=== PATIENT | male | born 1955 | race Two or more races ===

== ENCOUNTER 2022-11-02 09:38 | Outpatient (OUT) | payer MEDICARE, OTHER, SELFPAY ==
--- NOTE | 2022-11-02 10:01 | P.CN_ITS ---
Consult Note: HPI Data of Consult Patient: known to practice within the last 3 years Consult date: 11/02/22 Requesting Physician: LIZZIE KU NP Primary Care Provider: MIKE YUAN Consult Narrative Narrative: He is here for upper back and lower back pain . He had lumbar RFA 06/18 with around 50% relief of pain only lasting a day. SCOTT in the past without relief. Currently in PT for shoulder post-op with sling on. No new sensorimotor or bowel or bladder issues. He feels the norco is wearing off to soon. We can change his dose to TID. Narcan rx given. cc:: CC: LIZZIE KU NP Review of Systems ROS0 Status of ROS 10 or more systems reviewed and unremarkable except as noted in history and below Musculoskeletal Reports: back pain Meds Home Medications and Allergies Allergies Allergy/AdvReac Type Severity Reaction Status Date / Time No Known Drug Allergies Allergy Verified 11/02/22 10:03 Exam Constitutional Documenting provider has reviewed patient's vital signs: yes Common normals: no apparent distress, average body habitus, oriented x3, healthy appearing, alert and well nourished Orientation/consciousness: Yes awake, Yes oriented to person, Yes oriented to place and Yes oriented to time HENMT Common normals: normocephalic, nasal mucous membranes and turbinates normal and moist oral mucous membranes Respiratory Common normals: normal respiratory effort, no retractions and no use of accessory muscles Effort & inspection: able to speak in complete sentences and symmetric chest movement Back & Pelvis Lumbar spine/lower back: normal to inspection, ROM limited, pain with ROM, paraspinal muscle tenderness, straight leg raise positive right and other soft tissue findings (positive facet load bilat) Extremity Common normals: normal to inspection, full ROM, normal capillary refill and no pedal edema Other: muscle strength bilat LE 4/5 with intact sensation Assessment and Plan Assessment and Plan (1) Lumbar radiculopathy: (2) Lumbar spondylosis:
== END 2022-11-02 09:39 ==
PROVIDERS: PCP Family Medicine; Visit Provider Nurse Practitioner
DX: M47.26 Other spondylosis with radiculopathy, lumbar region (principal)
CPT/HCPCS: G0463

== ENCOUNTER 2022-11-28 12:30 | Outpatient (OUT) | payer MEDICARE, OTHER, SELFPAY ==
[2022-11-28 13:34] LABS: Estimated Average Glucose 123 mg/dL; Glycohemoglobin A1C 5.9 % (4.5-6.2)
[2022-11-28 13:41] LABS: Alanine Aminotransferase 25 U/L (16-63); Albumin Globulin Ratio 0.9; Albumin Level 3.9 g/dL (3.4-5.0); Alkaline Phosphatase 154 U/L (46-116); Anion Gap 11.6; Aspartate Amino Transferase 22 U/L (15-37); BUN Creatinine Ratio 17.8; Bilirubin Total 0.3 mg/dL (0.2-1.0); Calcium 8.6 mg/dL (8.5-10.1); Carbon Dioxide 26.2 mmol/L (21.0-32.0); Chloride 104 mmol/L (98-107); Chol HDL Ratio 3.8; Cholesterol 146 mg/dL (<=200); Estimated GFR (African America 58 (>=60); Estimated GFR (Non-African Ame 48 (>=60); Globulin 4.4 g/dL; Glucose 154 mg/dL (74-106); HDL Cholesterol 38 mg/dL (40-60); Potassium 4.8 mmol/L (3.5-5.1); Sodium 137 mmol/L (136-145); Total Protein 8.3 g/dL (6.4-8.2); Triglycerides 294 mg/dL (<=150); VLDL CHOLESTEROL 58.8 mg/dL
== END 2022-11-28 12:31 | disposition home or self-care (01) ==
PROVIDERS: PCP Family Medicine; Visit Provider Family Medicine
DX: E11.65 Type 2 diabetes mellitus with hyperglycemia (principal)
CPT/HCPCS: 36415; 80053; 80061; 83036

== ENCOUNTER 2023-01-31 10:37 | Outpatient (OUT) | payer MEDICARE, OTHER, SELFPAY ==
--- NOTE | 2023-01-31 10:47 | P.CN_ITS ---
Consult Note: HPI Data of Consult Patient: known to practice within the last 3 years Requesting Physician: Luz Marina Viera NP Primary Care Provider: Niru Flynn MD Consult Narrative Reason for consult: f/u Narrative: Billy landers pleasant 67 year old male presents to office for evaluation of chronic low back, bilateral legs, bilateral shoulders. Currently on amitriptyline 25mg qd and [facility]. We prescribe norco 5- 325mg BID with mild relief. Patient interested in discussing additional injection therapy, previously failed MBBs and did not pursue an RFA. Today rating pain 7-8/. cc:: CC: Luz Marina Viera NP Review of Systems ROS Status of ROS 10 or more systems reviewed and unremarkable except as noted in history and below Musculoskeletal Reports: back pain, extremity pain and joint pain Meds Home Medications and Allergies Home Medications Medication Instructions Recorded Confirmed Type adalimumab 40 mg/0.4 mL 40 mg subcut QWEEK 11/02/22 11/02/22 History subcutaneous syringe kit ([place](CF)) amitriptyline 25 mg tablet 25 mg PO DAILY 11/02/22 11/02/22 History ascorbic acid (vitamin C) 500 mg 500 mg PO DAILY 11/02/22 11/02/22 History tablet baclofen 10 mg tablet 10 mg PO DAILY 11/02/22 11/02/22 History diclofenac sodium 75 mg 75 mg PO BID 11/02/22 11/02/22 History tablet,delayed release duloxetine 60 mg capsule,delayed 60 mg PO DAILY 11/02/22 11/02/22 History release ferrous sulfate 325 mg (65 mg 325 mg PO BID 11/02/22 11/02/22 History iron) tablet,delayed release flecainide 100 mg tablet 100 mg PO Q12H 11/02/22 11/02/22 History furosemide 40 mg tablet 40 mg PO DAILY 11/02/22 11/02/22 History hydrocodone 5 mg-acetaminophen 325 1 tab PO BID 11/02/22 11/02/22 History mg tablet lidocaine 5 % topical patch 1 patch topical DAILY 11/02/22 11/02/22 History lisinopril 10 mg tablet 10 mg PO DAILY 11/02/22 11/02/22 History melatonin 5 mg capsule mg 11/02/22 History metoprolol tartrate 50 mg tablet 50 mg PO DAILY 11/02/22 11/02/22 History multivitamin (Multiple Vitamins 1 tab PO DAILY 11/02/22 11/02/22 History tablet) omeprazole 40 mg capsule,delayed 40 mg PO DAILY 11/02/22 11/02/22 History release pregabalin 100 mg capsule (Lyrica) 100 mg PO BID 11/02/22 11/02/22 History simvastatin 40 mg tablet 40 mg PO DAILY 11/02/22 11/02/22 History sulfasalazine 500 mg tablet 1 g PO DAILY 11/02/22 11/02/22 History thiamine HCl (vitamin B1) 100 mg 100 mg PO DAILY 11/02/22 11/02/22 History tablet Allergies Allergy/AdvReac Type Severity Reaction Status Date / Time No Known Drug Allergies Allergy Verified 11/02/22 10:03 Exam Narrative Exam Narrative: chronic whole body OA pain Constitutional Documenting provider has reviewed patient's vital signs: yes Common normals: no apparent distress, oriented x3, healthy appearing, alert and well nourished General appearance: cooperative HENMT Common normals: normocephalic, hearing grossly normal bilaterally and moist oral mucous membranes Head and scalp: normocephalic Eye Common normals: PERRL Pupil: PERRL Neck & C-Spine Common normals: full ROM General: normal visual inspection Chest Common normals: inspection of chest normal Respiratory Common normals: normal respiratory effort, no retractions and no use of accessory muscles Back & Pelvis Lumbar spine/lower back: ROM limited, pain with ROM, straight leg raise positive right and straight leg raise positive left Sacroiliac joints: SI joint(s) abnormal SI joint details: tender to palpation and pain elicited by compression of iliac crest maneuver Other: pain with flexion, extension, rotation. Worsened with standing. Radiculopathy and altered sensation to BLE. Extremity Common normals: normal to inspection Neuro Common normals: oriented x3, CN's II-XII intact bilaterally, moves all extremities, no focal motor deficits, no sensory deficits noted and deep tendon reflexes 2+ bilaterally Sensorium/orientation: alert Gait (neuro): antalgic and assistive device used cane Motor exam: no movement abnormalities noted and strength abnormal (4/ BUE BLE) Psych Common normals: mental status grossly normal, thought process normal, cooperativ e, affect normal, speech normal and activity/motor behavior normal Speech: normal speech Thought process: normal thought process Results Additional Findings Additional findings: I have checked an [place] report on this patient today and there are no aberrancies noted in the prescribing history.?? A drug screen was completed and reviewed within the last year, and if there has not been a drug screen completed we ordered one today to monitor higher risk, state monitored pain medication use. As part of providing excellent, safe, comprehensive care, the following was completed at our patient's visit: 1. A medication reconciliation and review to ensure accurate knowledge of current/active medications, including asking our patients to inform us about any [id number] medications or herbal remedies/nutritional supplements/alternative remedies. 2. A review to specifically ensure our patients have had annual screening for: elevated body mass index (BMI), tobacco use, screening for depression, and screening for unhealthy alcohol use. When screening is concerning, patients are provided with education and the specific recommendation to discuss the concerning health issue and treatment options with their primary care provider. Assessment and Plan Assessment and Plan (1) Lumbar spondylosis: (2) Lumbar radiculopathy: (3) Osteoarthritis: (4) Chronic, continuous use of opioids: (5) Encounter for monitoring opioid maintenance therapy: Assessment and Plan: I have refilled the patient's opioid prescriptions at the above noted dose and schedule.? I feel these medications are improving the patient's quality of life and allow them to tolerate activities of daily living as well as participate in recreational activity.? The patient does not report intolerable side effects. The patient is NOT opioid naive and non-pharmacologic and non-opioid treatment has failed to significantly relieve the patient's pain and improve functionality. The patient has a diagnosis that is related to a somatic or visceral pain etiology. ? ?? I reviewed with the patient the potential risks and side effects with the use of? opioid medications including but not limited to respiratory depression,? sedation, and even . I verified the patient has access to naloxone should? these effects occur. I advised the patient to avoid the use of any other? sedation substances including alcohol, THC, and benzodiazepines while? taking opioid medications due to the risk of compounding side effects and? detrimental outcomes. 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 drug screen, and opioid start talking forms. The patient was advised to let? their family know they had Naloxone in case they would need to administer? the medication.? ?? A drug screen was completed within the last year, and no aberrancies were noted regarding their use of controlled substances. The patient understands they are subject to the terms and conditions of the pain contract that they have signed. ? ?? I have checked an OAR[place] report on this patient today and there are no aberrancies noted in the prescribing history.? Plan bilateral L4-5 TFESI followed by bilateral L5-S1 TFESI 2 weeks later for radicular symptoms and low back pain as supported by imaging and assessment previously mild to no benefit from lumbar MBBs did not pursue RFA [facility] currently for shoulder pain not interested in additional PT interested in lumbar SCOTT for symptom and pain management f/u after injections
== END 2023-01-31 10:38 | disposition home or self-care (01) ==
LOC: PM 10:37
PROVIDERS: PCP Family Medicine; Visit Provider Nurse Practitioner
DX: M47.26 Other spondylosis with radiculopathy, lumbar region (principal); M19.90 Unspecified osteoarthritis, unspecified site; Z79.891 Long term (current) use of opiate analgesic
CPT/HCPCS: G0463

== ENCOUNTER 2023-03-25 07:37 | Day surgery (SDC) | payer MEDICARE, OTHER, SELFPAY ==
[2023-03-25 07:56] VITALS: BP 99/67; PULSE 70; RESP 16; TEMP 36.5; O2SAT 98
[2023-03-25 08:34] VITALS: BP 110/55; PULSE 68; RESP 18; O2SAT 95
[2023-03-25] MEDS: TRIAMCINOLONE ACETONIDE 40 MG/ML VIAL 80 MG INJ (08:37)
[2023-03-25] MEDS: IOHEXOL 240 MG/ML - 10 ML VIAL INJ (08:37)
[2023-03-25] MEDS: BUPIVACAINE HCL 0.25% PF 25 MG/10 ML VIAL 2 ML INJ (08:37)
[2023-03-25] MEDS: LIDOCAINE HCL 2% PF 100 MG/5 ML VIAL 3 ML INJ (08:37)
[2023-03-25 08:40] VITALS: BP 112/65; PULSE 66; RESP 18; O2SAT 97
--- NOTE | 2023-03-25 08:41 | W.PM.PROCNOT ---
Date of procedure: 03/25/23 Pre-op diagnosis: Lumbar stenosis w/ neurogenic claudication, lumbar postlaminectomy syndrome Post-op diagnosis: same as pre-op Procedure: Procedure: Bilateral L4-5 transforaminal epidural steroid injection Medications: Bupivacaine 0.25% 2cc, kenalog 80mg The patient was seen and examined in the preoperative holding area.? Informed consent was obtained and placed on the chart.? Patient was brought to the medical procedure unit and placed in the prone position where a timeout was completed verifying the correct patient, procedure site, position, and planned special equipment using sterile aseptic technique.? Under direct fluoroscopic visualization a 25-gauge Quincke tipped spinal needle was advanced at level left L4-5 to the designated neural foramen where contrast dye was injected to show adequate spread.? There was no evidence of vascular or adverse uptake.? Epidural spread was appreciated.? The above-mentioned injectate was then placed in a 1.5 mL aliquot preceded by negative aspiration.? The needle was removed. The same procedure, at the same level, was completed on the opposite side. ? Patient was taken to the postprocedural recovery area and monitored for an appropriate length of time before found suitable for discharge in the accompaniment of a responsible adult. Anesthesia: Local Surgeon: Lesley Greene Pathology: none sent Condition: stable Disposition: no change
== END 2023-03-25 08:44 | disposition home or self-care (01) ==
PROVIDERS: PCP Family Medicine; Visit Provider Anesthesiology
DX: M48.062 Spinal stenosis, lumbar region with neurogenic claudication (principal); M96.1 Postlaminectomy syndrome, not elsewhere classified
CPT/HCPCS: 64483; Q9966

== ENCOUNTER 2023-06-03 10:04 | Day surgery (SDC) | payer MEDICARE, OTHER, SELFPAY ==
[2023-06-03 10:27] VITALS: BP 105/71; PULSE 76; RESP 16; TEMP 36.9; O2SAT 98
[2023-06-03 10:28] LABS: Glucometer 128 mg/dL (74-106)
[2023-06-03 10:38] VITALS: BP 103/54; PULSE 73; RESP 18; O2SAT 97
[2023-06-03] MEDS: 0.9 % SODIUM CHLORIDE 10 ML INJ (10:39)
[2023-06-03] MEDS: IOHEXOL 240 MG/ML - 10 ML VIAL INJ (10:39)
[2023-06-03] MEDS: LIDOCAINE HCL 2% PF 100 MG/5 ML VIAL INJ (10:39)
[2023-06-03] MEDS: BUPIVACAINE HCL 0.25% PF 25 MG/10 ML VIAL INJ (10:39)
[2023-06-03] MEDS: TRIAMCINOLONE ACETONIDE 40 MG/ML VIAL INJ (10:39)
[2023-06-03 10:40] VITALS: BP 104/57; PULSE 77; RESP 18; O2SAT 96
--- NOTE | 2023-06-03 10:44 | W.PM.PROCNOT ---
Date of procedure: 06/03/23 Pre-op diagnosis: Lumbar stenosis with neurogenic claudication Post-op diagnosis: same as pre-op Procedure: Procedure: Bilateral L5-S1 transforaminal epidural steroid injection Medications: Bupivacaine 0.25% 3cc, kenalog 80mg The patient was seen and examined in the preoperative holding area.? Informed consent was obtained and placed on the chart.? Patient was brought to the medical procedure unit and placed in the prone position where a timeout was completed verifying the correct patient, procedure site, position, and planned special equipment using sterile aseptic technique.? Under direct fluoroscopic visualization a 25-gauge Quincke tipped spinal needle was advanced at level left L5-S1 to the designated neural foramen where contrast dye was injected to show adequate spread.? There was no evidence of vascular or adverse uptake.? Epidural spread was appreciated.? The above-mentioned injectate was then placed in a 1.5 mL aliquot preceded by negative aspiration.? The needle was removed. The same procedure, at the same level, was completed on the opposite side. ? Patient was taken to the postprocedural recovery area and monitored for an appropriate length of time before found suitable for discharge in the accompaniment of a responsible adult. Anesthesia: Local Surgeon: Lesley Greene Pathology: none sent Condition: stable Disposition: no change
== END 2023-06-03 10:50 | disposition home or self-care (01) ==
PROVIDERS: PCP Family Medicine; Visit Provider Anesthesiology
DX: M48.062 Spinal stenosis, lumbar region with neurogenic claudication (principal)
CPT/HCPCS: 36415; 64483; J0665; J3301; Q9966

== ENCOUNTER 2023-06-13 10:17 | Outpatient (OUT) | payer MEDICARE, OTHER, SELFPAY ==
--- OUTSIDE RECORDS SUMMARY | 2023-06-13 10:21 | XMS_ITS | CCD ---
Author Name Unknown Address [address] [place] [address] Organization [facility] Care Team Providers Care Voltage Inspector Name Role Phone Mike Yuan MD Primary Care Provider MIKE YUAN Primary Care Unavailable GUY, HERNANDEZ H. Admitting Unavailable GUY, HERNANDEZ H. Attending Unavailable BELINDA MONROE Referring Unavailable MIKE YUAN Primary Care Unavailable MIKE YUAN Primary Care Unavailable GUY, HERNANDEZ H. Attending Unavailable GUY, HERNANDEZ H. Referring Unavailable Mike Yuan MD Primary Care Provider Mike Yuan MD Primary Care Provider [phone] GABRIELLA, ZENIA Referring Unavailable MIKE YUAN Primary Care Unavailable MIKE YUAN Primary Care Unavailable SKYE GARCIA Attending Unavailable GABRIELLA, ZENIA Admitting Unavailable GABRIELLA, ZENIA Attending Unavailable MIKE YUAN Primary Care Unavailable GABRIELLA, ZENIA Admitting Unavailable GABRIELLA, ZENIA Attending Unavailable MIKE YUAN Primary Care Unavailable DEBBY JENKINS Consulting Unavailable GABRIELLA, ZENIA Referring Unavailable MIKE YUAN Primary Care Unavailable CYDNEY REDMOND Attending Unavailable LAKSHMIPATHY ., NARENDRANATH Attending Pia vailable LAKSHMIPATHY ., NARENDRANATH Admitting Pia vailable DR JENNIFER RAGSDALE Primary Care Unavailable DR MIKE YUAN Primary Care Unavailable FLORES ., DR LOUISE Ewing Attending Unavailable FLORES ., DR LOUISE Ewing Admitting Unavailable FLORES ., DR LOUISE Ewing Consulting Unavailable AUTUMN RIOS Consulting Unavailable MAGALLANES . DEVAN Consulting Unavailable DR MIKE YUAN Primary Care Unavailable FLORES ., DR LOUISE Ewing Attending Unavailable FLORES ., DR LOUISE Ewing Admitting Unavailable LAKSHMIPATHY ., NARELIAS Attending Pia vailable LAKSHMIPATHY ., NARENDRANATH Admitting Pia vailable BALL, DR RODRIGUEZ Primary Care Unavailable TANNER ., DR LOUISE Ewing Attending Unavailable YUAN, DR MIKE Wong Primary Care Unavailable TANNER ., DR LOUISE Ewing Admitting Unavailable LAKSHMIPATHY ., NARENDRANATH Consulting Pia vailable LAKSHMIPATHY ., NARENDRANATH Attending Pia vailable LAKSHMIPATHY ., NARENDALYSSAATH Admitting Pia vailable BALL, DR RODRIGUEZ Primary Care Unavailable TANNER ., DR LOUISE Ewing Attending Unavailable YUAN, DR MIKE Wong Primary Care Unavailable TANNER ., DR LOUISE Ewing Admitting Unavailable TANNER ., DR LOUISE Ewing Consulting Unavailable ELTAHAWY, DR BLANKENSHIP Attending Unavailable ELTAHAWY, DR BLANKENSHIP Admitting Unavailable BALL, DR RODRIGUEZ Primary Care Unavailable ELTAHAWY, DR BLANKENSHIP Consulting Unavailable ZIEBER, DR REILLY Mattson Consulting Unavailable MISC, DR LAN Attending Unavailable MISC, DR LAN Admitting Unavailable YUAN, DR MIKE Wong Primary Care Unavailable MISC, DR LAN Consulting Unavailable MISC, DR LAN Attending Unavailable MISC, DR LAN Admitting Unavailable MISC, DR LAN Consulting Unavailable BALL, DR RODRIGUEZ Primary Care Unavailable ZIEBLUZ MARINA, DR REILLY Mattson Consulting Unavailable LAKSHMIPATHY ., NARENDRANATH Admitting Pia vailable LAKSHMIPATHY ., NARENDALYSSAATH Attending Pia vailable ZIEBER, DR REILLY Mattson Consulting Unavailable YUAN, DR MIKE Wong Primary Care Unavailable LAKSHMIPATHY ., STEPHANIE Consulting Pia vailable FAWWAD, APARICIO H Admitting Unavailable YUAN, DR MIKE Wong Primary Care Unavailable FAWWAD, APARICIO H Attending Unavailable KEAVY, DR RAMONA Carmichael Consulting Unavailable JANIS ., MELINDA QUINTANILLA Consulting Unavailabl e FAWWAD, APARICIO H Consulting Unavailable SISTER, ADAM Consulting Unavailable NEWATIA, PANDA Consulting Unavailable MAGALLANES ., DEVAN Consulting Unavailable TANNER ., DR LOUISE Ewing Admitting Unavailable YUAN, DR MIKE Wong Primary Care Unavailable TANNER ., DR LOUISE Ewing Attending Unavailable TANNER ., DR LOUISE Ewing Attending Unavailable YUAN, DR MIKE Wong Primary Care Unavailable TANNER ., DR LOUISE Ewing Admitting Unavailable TANNER ., DR LOUISE Ewing Consulting Unavailable YUAN, DR MIKE Wong Primary Care Unavailable TANNER ., DR LOUISE Ewing Attending Unavailable TANNER ., DR LOUISE Ewing Admitting Unavailable MAGALLANES .DEVAN Consulting Unavailable DR MIKE YUAN Primary Care Unavailable FLORES ., DR LOUISE Ewing Admitting Unavailable FLORES ., DR LOUISE Ewing Consulting Unavailable FLORES ., DR LOUISE Ewing Attending Unavailable BELINDA HOLLINGSWORTH Consulting Unavailable REILLY BEATTY Consulting Unavailable Mike Yuan Unavailable IRAIS Hernandez Primary Care Provider [phone] IRAIS Hernandez Attending Provider [phone] MD Mike Yuan Other Provider Berta Hernandez Attending Unavailable Berta Hernandez Primary Care Unavailable Berta Hernandez Admitting Unavailable Mike Yuan Consulting Unavailable Jc NIETO, Lesley Altamirano Attending Unavailable Medications Current Medications Medication Drug Class(es) Dates Sig (Normalized) Sig (Original) acetaminophen 325 mg / HYDROcodone bitartrate 5 mg oral tablet (15 sources) Opioid Agonist Start: 12-06-2021 End: 12-09-2021 HYDROcodone-acetami nophen (NORCO) 5-325 MG per tablet Indications: Closed fracture of shaft of left humerus, unspecified fracture morphology, initial encounter Take 1 tablet by mouth every 6 hours as needed for Pain for up to 3 days. Intended supply: 3 days. Take lowest dose possible to manage pain 12 tablet 0 12/06/2021 12/09/2021 Active Start: 12-06-2021 End: 12-06-2021 HYDROcodone-acetaminophen (N ORCO) 5-325 MG per tablet 2 tablet Start: 09-06-2021 End: 09-13-2021 HYDROcodone-acetaminophen (N ORCO) 5-325 MG per tablet Indications: Post-op pain Take 1 tablet by mouth every 4 hours as needed for Pain for up to 7 days. Intended supply: 7 days. Take lowest dose possible to manage pain 42 tablet 0 09/06/2021 09/13/2021 Active Start: 12-08-2020 End: 12-15-2020 take 1 tablet by mouth every six hours as needed for pain HYDROcodone-acetaminophen (NORCO) 7.5-32 5 MG per tablet Indications: Post-op pain Take 1 tablet by mouth every 6 hours as needed for Pain for up to 7 days. 28 tablet 0 12/08/2020 12/15/2020 Active Start: 12-06-2020 take 1 tablet by evangelist th every four hours as needed for pain 1 tablet, Oral, EVERY 4 HOURS PRN, Pain Moderate (4-6), Starting on Sat12/06/20 at 1510 Maximum dose of acetaminophen is 4000 mg from all sources in 24 hours. Start: 11-11-2020 End: 12-08-2020 take 1 tablet by mouth three times daily HYDROcodone-acetaminophen (NORCO) 5-325 MG per tablet take 1 tablet by mouth three times a day if needed - MUST LAST 30 DAYS 0 11/11/2020 12/08/2020 Discontinued (Stop Taking at Discharge) Start: 06-06-2019 End: 06-22-2019 take 1 tablet by mouth every six hours as needed for pain HYDROcodone-acetaminophen (NORCO) 10-325 MG per tablet Indications: Post-op pain Take 1 tablet by mouth every 6 hours as needed for Pain for up to 14 days. 40 tablet 0 06/08/2019 06/22/2019 Active Start: 06-06-2019 HYDROcodone-ac etaminophen (NORCO) 5-325 MG per tablet 2 tablet Start: 06-04-2019 End: 06-06-2019 take 1 tablet by mouth every four hours as needed for pain 1 tablet, Oral, EVERY 4 HOURS PRN, Pain Moderate (4-6), Starting Shalonda 06/04/19 at 1536 Maximum dose of acetaminophen is 4000 mg from all sources in 24 hours. End: 06-06-2019 take 1 tablet by mouth three times daily HYDROcodone-acetaminophen (NORCO) 10-325 MG per tablet Take 1 tablet by mouth 3 times daily. 0 06/06/2019 Discontinued (REORDER) 0.4 ml adalimumab 100 mg/ml auto-injector (8 sources) Tumor Necrosis Factor Rosalba Start: 06-04-2019 40 mg, Subcutaneous, EVERY 14 DAYS, First dose on Shalonda 06/04/19 at 1600 Non-Formulary with no TI: Adalimumab (Humira) End: 09-06-2021 Adalimumab 20 MG/0.4ML PSKT Inject 40 mg into the skin every 7 days 0 09/06/2021 Discontinued (Stop Taking at Discharge) Adalimumab 20 MG /0.4ML PSKT Inject 40 mg into the skin every 14 days 0 Active aspirin 325 mg delayed release oral tablet (12 sources) Platelet Aggregation Inhibitor, Nonsteroidal Anti-inflammatory Drug Start: 09-06-2021 take 1 tablet by mouth once daily aspirin 325 MG EC tablet Take 1 tablet by mouth daily 30 tablet 3 09/06/2021 Active Start: 12-06-2020 take 81 mg by mouth once daily 81 mg, Oral, DAILY, First dose on Sat12/06/20 at 1530 Start: 06-04-2019 take 81 mg by mouth once daily 81 mg, Oral, DAILY, First dose on Sat06/04/19 at 1600 End: 09-06-2021 take 1 tablet by mouth once daily aspirin 81 MG tablet Take 81 mg by mouth daily 0 09/06/2021 Discontinued (Stop Taking at Discharge) cephalexin 500 mg oral capsule (5 sources) Cephalosporin Antibacterial Start: 12-08-2020 End: 12-15-2020 take 1 capsule by mouth every eight hours cephALEXin (KEFLEX) 500 MG capsule Take 1 capsule by mouth every 8 hours for 20 doses 20 capsule 0 12/08/2020 12/15/2020 Active Start: 12-07-2020 End: 12-13-2020 take 1 dose by mouth three times daily 500 mg, Oral, EVERY 8 HOURS SCHEDULED (3 times per day), First dose on Sat12/07/20 at 0600, For 20 doses Start: 06-05-2019 End: 06-13-2019 take 1 capsule by mouth three times daily cephALEXin (KEFLEX) 500 MG capsule Take 1 capsule by mouth 3 times daily for 7 days 21 capsule 0 06/06/2019 06/13/2019 Active diazePAM 5 mg oral tablet (6 sources) Benzodiazepine Start: 12-08-2020 End: 12-11-2020 take 1 tablet by mouth every eight hours as needed for muscle spasms diazePAM (VALIUM) 5 MG tablet Indications: Muscle spasm Take 1 tablet by mouth every 8 hours as needed (muscle spasm) for up to 3 days. 12 tablet 0 12/08/2020 12/11/2020 Active Start: 06-06-2019 End: 06-22-2019 take 1 tablet by mouth every six hours as needed for anxiety diazepam (VALIUM) 5 MG tablet Indications: Post-op pain Take 1 tablet by mouth every 6 hours as needed for Anxiety for up to 14 days. 40 tablet 0 06/08/2019 06/22/2019 Active Start: 06-04-2019 diazepam (ANDRES UM) tablet 5 mg docusate sodium 50 mg / sennosides, shelter 8.6 mg oral tablet (3 sources) Start: 12-06-2020 End: 12-18-2020 take 1 tablet by mouth twice daily sennosides-docusate sodium (SENOKOT-S) 8.6-50 MG tablet Take 1 tablet by mouth 2 times daily for 10 days 20 tablet 0 12/08/2020 12/18/2020 Active DULoxetine 60 mg delayed release oral capsule (13 sources) Serotonin and Norepinephrine Reuptake Inhibitor Start: 05-27-2019 take 1 capsule by mouth once daily DULoxetine (CYMBALTA) 60 MG extended release capsule Take 60 mg by mouth daily 0 05/27/2019 Active gabapentin 300 mg oral capsule (9 sources) Anti-epileptic Agent Start: 09-06-2021 gabapentin (NEURONTIN) capsule 300 mg Start: 09-05-2021 gabapentin (NE URONTIN) capsule 100 mg Start: 12-06-2020 take 300 mg by mouth once deyanira y 300 mg, Oral, DAILY, First dose on Sat12/06/20 at 1530 Start: 06-06-2019 End: 06-20-2019 take 0.5 tablet by mouth once daily gabapentin (NEURONTIN) 600 MG tablet Take 0.5 tablets by mouth daily for 14 days. 40 tablet 0 06/06/2019 Active Start: 06-04-2019 take 600 mg by mouth once deyanira y 600 mg, Oral, DAILY, First dose on Sat06/04/19 at 1600 End: 06-06-2019 take 1 tablet by mouth once daily gabapentin (NEURONTIN) 600 MG tablet Take 600 mg by mouth daily. 0 06/06/2019 Discontinued (REORDER) glucagon (rdna) 1 mg injection (2 sources) Antihypoglycemic Agent Start: 09-05-2021 glucago n (rDNA) injection 1 mg Start: 12-06-2020 take 1 mL intravenou sly every hour 1 mg, Intramuscular, PRN, Low blood sugar, Blood glucose less than 70 mg/dL and patient NOT ALERT or NPO and does not have IV access., Starting on Sat12/06/20 at 1510 After administration, attempt intravenous access and start D5W at 100 mL/hr. Repeat blood glucose in 15 minutes x2 and notify provider. 150 ml glucose 50 mg/ml injection (8 sources) Start: 09-05-2021 glucose (GLUTO SE) 40 % oral gel 15 g Start: 09-05-2021 dextrose 50 % IV solution Start: 09-05-2021 dextrose 5 % s olution Start: 09-05-2021 dextrose bolus (hypoglycemia) 10% 125 mL Start: 09-05-2021 100 mL/hr, Int raVENous, PRN, Low blood sugar, Starting on Sat09/05/21 at 1340 Start infusion following administration of dextrose 50% or glucagon. Start: 12-06-2020 15 g, Oral, DE N, Low blood sugar, Starting on Sat12/06/20 at 1510 If blood glucose less than 50 mg/dL and patient ALERT and TOLERATING PO, give 2 tubes glucose gel. If blood glucose less than 70 mg/dL and patient ALERT and TOLERATING PO, give 1 tube glucose gel. Repeat blood glucose in 15 minutes. If blood glucose is less than 70 mg/dL, repeat treatment and recheck blood glucose in 15 minutes x2 and notify provider. Start: 12-06-2020 12.5 g, Intrav enous, PRN, Low blood sugar, Blood glucose less than 70 mg/dL and patient NOT ALERT or NPO., Starting on Sat12/06/20 at 1510 If patient does not respond within 5 minutes, repeat dose x1. Start D5W at 100 mL/hour until ordering provider can be reached. Repeat blood glucose in 15 minutes. If blood glucose is less than 70 mg/dL, repeat treatment and recheck blood glucose in 15 minutes x2. If using Glucostabilizer, dose as instructed per system. Start: 12-06-2020 100 mL/hr, Int ravenous, at 100 mL/hr, PRN, Low blood sugar, Starting on Sat12/06/20 at 1510 Start infusion following administration of dextrose 50% or glucagon. insulin lispro 100 unt/ml injectable solution (6 sources) Insulin Analog Start: 09-05-2021 insulin lispro (HUMALOG) injection vial 0-3 Units Start: 12-06-2020 0-6 Units, Subcutaneous, NIG HTLY, First dose on Sat12/06/20 at 2100 If continuous tube feedings/TPN/NPO, give correction dose based on result, no reduction in dose. If eating or bolus tube feeding: Medium Dose Corrective Algorithm Glucose: Dose: If <139 No Insulin 140-199 1 Unit 200-249 2 Units 250-299 3 Units 300-349 4 Units 350-400 5 Units Above 400 6 Units Start: 12-06-2020 0-12 Units, Subcutaneous, 3 TIMES DAILY WITH MEALS, First dose on Sat12/06/20 at 1700 Medium Dose Corrective Algorithm Glucose: Dose: If <139 No Insulin 140-199 2 Units 200-249 4 Units 250-299 6 Units 300-349 8 Units 350-400 10 Units Above 400 12 Units Start: 06-04-2019 0-6 Units, Subcutaneous, NIG HTLY, First dose on Shalonda 06/04/19 at 2100 If continuous tube feedings/TPN/NPO, give correction dose based on result, no reduction in dose. If eating or bolus tube feeding: Medium Dose Corrective Algorithm Glucose: Dose: If <139 No Insulin 140-199 1 Unit 200-249 2 Units 250-299 3 Units 300-349 4 Units 350-400 5 Units Above 400 6 Units Start: 06-04-2019 0-12 Units, Subcutaneous, 3 TIMES DAILY WITH MEALS, First dose on Sat06/04/19 at 1700 Medium Dose Corrective Algorithm Glucose: Dose: If <139 No Insulin 140-199 2 Units 200-249 4 Units 250-299 6 Units 300-349 8 Units 350-400 10 Units Above 400 12 Units 24 hr metoprolol succinate 50 mg extended release oral tablet (14 sources) beta-Adrenergic Rosalba Start: 06-04-2019 metopr olol succinate (TOPROL XL) extended release tablet 50 mg morphine (PF) injection 2 mg (2 sources) Start: 09-05-2021 morphine (PF) injection 2 mg Start: 06-04-2019 morphine (PF) injection 2 mg omeprazole 20 mg delayed release oral capsule (8 sources) Proton Pump Inhibitor take 1 capsule by mouth once daily omeprazole (PRILOSEC) 20 MG delayed release capsule Take 20 mg by mouth daily 0 Active 2 ml ondansetron 2 mg/ml injection (1 source) Serotonin-3 Receptor Antagonist Start: 020 4 mg, Intravenous, EVERY 6 HOURS PRN, Nausea, Vomiting, Starting Shalonda 06/04/19 at 1536, Post-op ondansetron (ZOFRAN-ODT) disintegrating tablet 4 mg (1 source) Start: 022 ondansetron (ZOFRAN-ODT) disintegrating tablet 4 mg 1000 ml potassium chloride 0.02 meq/ml / sodium chloride 4.5 mg/ml injection (1 source) Start: 021 100 mL/hr, Intravenous, at 100 mL/hr, CONTINUOUS, Starting on Sat12/06/20 at 1530, Post-op prednisoLONE 3 mg/ml oral solution (9 sources) Corticosteroid Start: 021 take 5 mg by mouth once daily 5 mg, Oral, DAILY, First dose on Sat12/06/20 at 1530 Start: 06-04-2019 take 5 mg by mouth once daily 5 mg, Oral, DAILY, First dose on Sat06/04/19 at 1430 End: 09-06-2021 take 1 tablet by mouth once daily prednisoLONE 5 MG TABS Take 5 mg by mouth daily 0 09/06/2021 Discontinued (Stop Taking at Discharge) Promethazine (1 source) Phenothiazine Start: 12-06-2020 promethazine ( PHENERGAN) tablet 12.5 mg Completed/Discontinued Medications Medication Drug Class(es) Dates Sig (Normalized) Sig (Original) acetaminophen 325 mg oral tablet (3 sources) Start: 09-05-2021 End: 09-05-2021 take 1 dose by mouth four times daily 650 mg, Oral, EVERY 6 HOURS SCHEDULED (4 times per day), First dose on Sat09/05/21 at 1800, Until Discontinued Maximum dose of acetaminophen is 4000 mg from all sources in 24 hours. Post-op Start: 08-22-2021 End: 08-22-2021 acetaminophen (TYLENOL) tabl et 650 mg amitriptyline hydrochloride 25 mg oral tablet (13 sources) Tricyclic Antidepressant Start: 09-05-2021 take 50 mg by mouth once daily 50 mg, Oral, DAILY, First dose on Sat09/05/21 at 1500, Until Discontinued Start: 06-04-2019 take 50 mg by mouth once daily 50 mg, Oral, DAILY, First dose on Sat06/04/19 at 1600 Start: 05-07-2019 take 1 tablet by [facility] once daily amitriptyline (ELAVIL) 50 MG tablet Take 50 mg by mouth daily 0 05/07/2019 Active ascorbic acid 500 mg oral tablet (11 sources) Vitamin C Start: 06-04-2019 take 500 mg by mouth once daily 500 mg, Oral, DAILY, First dose on Sat09/06/21 at 0900, Until Discontinued calcium chloride 0.0014 meq/ml / potassium chloride 0.004 meq/ml / sodium chloride 0.103 meq/ml / sodium lactate 0.028 meq/ml injectable solution (5 sources) Start: 09-05-2021 End: 09-05-2021 lactated ringers infusion Start: 08-22-2021 lactated ringe rs infusion Start: 12-06-2020 End: 12-06-2020 lactated ringers infusion Start: 06-04-2019 End: 06-04-2019 lactated ringers infusion ceFAZolin (2 sources) Cephalosporin Antibacterial Start: 09-05-2021 End: 09-05-2021 CEFAZOLIN 2000 MG D5W 100 ML IVPB IVPB Start: 06-04-2019 End: 06-05-2019 2 g, Intravenous, EVERY 8 HO URS, 3 doses, First dose on Sat06/04/19 at 1600, Last dose on Sat06/05/19 at 0800, Post-op ceFAZolin (ANCEF) 2000 mg in dextrose 5 % 100 mL IVPB (3 sources) Start: 09-05-2021 End: 09-06-2021 2,000 mg, IntraVENous, EVERY 8 HOURS, 2 doses, First dose on Sat09/05/21 at 1700, Last dose on Sat09/06/21 at 0100 Antimicrobial Indications: Surgical Prophylaxis Post-op Start: 09-05-2021 End: 09-05-2021 ceFAZolin (ANCEF) 2000 mg in dextrose 5 % 100 mL IVPB Start: 12-06-2020 End: 12-07-2020 2,000 mg, Intravenous, EVERY 8 HOURS, 2 doses, First dose on Sat12/06/20 at 1530, Last dose on Sat12/06/20 at 2330, Post-op cyclobenzaprine hydrochloride 10 mg oral tablet (1 source) Muscle Relaxant Start: 12-06-2020 End: 12-08-2020 take 10 mg by mouth three times daily as needed for muscle spasms 10 mg, Oral, 3 TIMES DAILY PRN, Muscle spasms, Starting on Sat12/06/20 at 1510, Post-op dimenhyDRINATE 50 mg oral tablet (2 sources) Start: 09-05-2021 End: 09-05-2021 dimenhyDRINATE (DRAMAMINE) tablet 50 mg Start: 08-22-2021 End: 08-22-2021 dimenhyDRINATE (DRAMAMINE) t ablet 50 mg docusate sodium 100 mg oral capsule (12 sources) Start: 06-04-2019 End: 06-08-2019 take 100 mg by mouth twice daily 100 mg, Oral, 2 TIMES DAILY, First dose on Sat09/05/21 at 2100, Until Discontinued 2 ml fentaNYL 0.05 mg/ml injection (8 sources) Opioid Agonist Start: 09-05-2021 End: 09-05-2021 25 mcg, IntraVENous, EVERY 5 MIN PRN, 2 doses, Starting on Sat09/05/21 at 1019, Until Discontinued, Pain Moderate (4-6) For Phase I. If Phase II oral narcotics have been administered in the last 60 minutes, do not administer IV narcotics unless specifically approved by provider. PACU only Start: 12-10-2020 End: 12-19-2020 fentaNYL (DURAGESIC) 25 MCG/ HR Indications: Post-op pain Place 1 patch onto the skin every 72 hours for 9 days. 3 patch 0 12/10/2020 12/19/2020 Active Start: 12-07-2020 apply 1 dose transde rmal route every hour fentaNYL (DURAGESIC) 25 MCG/HR 1 patch Start: 12-06-2020 End: 12-06-2020 fentaNYL (SUBLIMAZE) injecti on 50 mcg Start: 06-06-2019 apply 1 dose transde rmal route every hour fentaNYL (DURAGESIC) 25 MCG/HR 1 patch Start: 06-05-2019 End: 06-06-2019 apply 1 dose transdermal route every hour fentaNYL (DURAGESIC) 50 MCG/HR 1 patch Start: 06-04-2019 End: 06-05-2019 1 patch, Transdermal, Admini ster over 72 Hours, EVERY 72 HOURS, First dose on Shalonda 06/04/19 at 1430 ferrous sulfate 325 mg oral tablet (11 sources) Start: 06-05-2019 take 325 mg by mouth once daily at breakfast 325 mg, Oral, DAILY WITH BREAKFAST, First dose on Sat09/06/21 at 0800, Until Discontinued flecainide acetate 50 mg oral tablet (11 sources) Antiarrhythmic Start: 09-05-2021 take 100 mg by mouth twice daily 100 mg, Oral, 2 TIMES DAILY, First dose on Sat09/05/21 at 2100, Until Discontinued Start: 12-06-2020 take 100 mg by mouth twice satya ly 100 mg, Oral, 2 TIMES DAILY, First dose on Sat12/06/20 at 2100 Start: 06-04-2019 take 100 mg by mouth twice satya ly 100 mg, Oral, 2 TIMES DAILY, First dose on Sat06/04/19 at 2100 take 1 tablet by evangelist th twice daily flecainide (TAMBOCOR) 100 MG tablet Take 100 mg by mouth 2 times daily 0 Active folic acid 1 mg oral tablet (11 sources) Start: 06-04-2019 take 1 mg by mouth once daily 1 mg, Oral, DAILY, First dose on Sat09/06/21 at 0900, Until Discontinued furosemide 40 mg oral tablet (11 sources) Loop Diuretic Start: 06-04-2019 take 40 mg by mouth once daily 40 mg, Oral, DAILY, First dose on Sat09/05/21 at 1500, Until Discontinued 1 ml HYDROmorphone hydrochloride 1 mg/ml cartridge (2 sources) Opioid Agonist Start: 12-06-2020 End: 12-08-2020 take 0.5 mg by mouth every three hours as needed for pain 0.5 mg, Intravenous, EVERY 3 HOURS PRN, Pain Moderate (4-6), Starting on Sat12/06/20 at 1510 If oral and IV narcotics ordered, use oral first and only use IV if oral is ineffective or cannot take oral. Do Not give oral and IV within 1 hour of each other unless specifically ordered. Start: 06-04-2019 End: 06-04-2019 HYDROmorphone (DILAUDID) inj ection 0.5 mg insulin glargine 100 unt/ml injectable solution (11 sources) Insulin Analog Start: 09-05-2021 inject 10 [IU] by subcutaneous injection once daily 10 Units, SubCUTAneous, NIGHTLY, First dose on Sat09/05/21 at 2100, Until Discontinued Start: 12-06-2020 inject 10 [IU] by garcia bcutaneous injection once daily 10 Units, Subcutaneous, NIGHTLY, First dose on Sat12/06/20 at 2100 Start: 06-04-2019 inject 10 [IU] by garcia bcutaneous injection once daily 10 Units, Subcutaneous, NIGHTLY, First dose on Sat06/04/19 at 2100 insulin glargine (LANTUS) 100 UNIT/ML injection vial Inject 10 Units into the skin nightly 0 Active 1 ml ketorolac tromethamine 15 mg/ml cartridge (1 source) Nonsteroidal Anti-inflammatory Drug, Cyclooxygenase Inhibitor Start: 12-06-2021 End: 12-06-2021 ketorolac (TORADOL) injection 15 mg Start: 12-06-2021 End: 12-06-2021 ketorolac (TORADOL) injectio n 15 mg lisinopril 10 mg oral tablet (11 sources) Angiotensin Converting Enzyme Inhibitor Start: 06-04-2019 take 10 mg by mouth once daily 10 mg, Oral, DAILY, First dose on Sat09/05/21 at 1500, Until Discontinued melatonin 5 mg oral tablet (10 sources) Start: 09-05-2021 End: 06-06-2019 take 5 mg by mouth once daily 5 mg, Oral, NIGHTLY, First dose on Sat09/05/21 at 2100, Until Discontinued Start: 12-06-2020 take 5 mg by mouth once daily 5 mg, Oral, NIGHTLY, First dose on Sat12/06/20 at 2100 Multiple Vitamins-Minerals (MULTIVITAMIN ADULT PO) (1 source) End: 06-06-2019 take 1 tablet by mouth once daily Multiple Vitamins-Minerals (MULTIVITAMIN ADULT PO) Take 1 tablet by mouth daily 0 06/06/2019 Discontinued (Stop Taking at Discharge) oxyCODONE hydrochloride 5 mg oral tablet (1 source) Opioid Agonist Start: 09-05-2021 take 5 mg by mouth every four hours as needed 5 mg, Oral, EVERY 4 HOURS PRN, Starting on Sat09/05/21 at 1340, Until Discontinued, Pain Moderate (4-6), Pain Severe (7-10), Post-op pantoprazole 40 mg delayed release oral tablet (3 sources) Proton Pump Inhibitor Start: 09-06-2021 take 40 mg by mouth once daily before breakfast 40 mg, Oral, DAILY BEFORE BREAKFAST, First dose on Sat09/06/21 at 0700, Until Discontinued Do not crush or break. Substituted for Omeprazole (PRILOSEC). Start: 12-06-2020 take 20 mg by mouth once daily 20 mg, Oral, DAILY, First dose on Sat12/06/20 at 1530 Do not crush or break. Start: 06-05-2019 take 40 mg by mouth once daily before breakfast 40 mg, Oral, DAILY BEFORE BREAKFAST, First dose on Sat06/05/19 at 0700 Do not crush or break. Substituted for Omeprazole (PRILOSEC). sertraline 100 mg oral tablet (14 sources) Serotonin Reuptake Inhibitor Start: 05-05-2019 take 100 mg by mouth twice daily 100 mg, Oral, 2 TIMES DAILY, First dose on Sat09/05/21 at 2100, Until Discontinued take 1 tablet by mouth once deyanira y Sertraline HCl 100 MG take 1 AND 1/2 tablets by mouth once daily 90 for 90 Active 5 ml sodium chloride 9 mg/ml injection (12 sources) Start: 09-05-2021 10 mL, IntraVE Nous, EVERY 12 HOURS SCHEDULED (2 times per day), First dose on Sat09/05/21 at 2100, Until Discontinued, Post-op Start: 09-05-2021 IntraVENous, a t 100 mL/hr, CONTINUOUS, Starting on Sat09/05/21 at 1400, Post-op Start: 09-05-2021 take 25 mL intraveno usly every hour as needed 25 mL, IntraVENous, at 100 mL/hr, PRN, If patient receiving piggyback infusions without ordered maintenance IV fluids or with frequent/long duration piggyback infusions, Starting on Sat09/05/21 at 1340 Administer at the same rate as the piggyback being infused. Post-op Start: 09-05-2021 take 10 mL intravenously once 10 mL, IntraVENous, PRN, Starting on Sat09/05/21 at 1340, Until Discontinued, Line Care After every IV line use Post-op Start: 12-06-2020 10 mL, Intrave nous, EVERY 12 HOURS SCHEDULED (2 times per day), First dose on Sat12/06/20 at 2100, Post-op Start: 12-06-2020 take 10 mL intravenously once 10 mL, Intravenous, PRN, Line Care, Starting on Sat12/06/20 at 1510 After every IV line use Post-op Start: 12-06-2020 take 25 mL intraveno usly every hour as needed 25 mL, Intravenous, at 100 mL/hr, PRN, If patient receiving piggyback infusions without ordered maintenance IV fluids or with frequent/long duration piggyback infusions, Starting on Sat12/06/20 at 1510 Administer at the same rate as the piggyback being infused. Post-op Start: 12-06-2020 End: 12-06-2020 0.9 % sodium chloride bolus Start: 12-06-2020 End: 12-06-2020 sodium chloride 0.9 % infusi on Start: 06-04-2019 10 mL, Intrave nous, EVERY 12 HOURS SCHEDULED (2 times per day), First dose on Sat06/04/19 at 2100, Post-op Start: 06-04-2019 Intravenous, a t 100 mL/hr, CONTINUOUS, Starting Sat06/04/19 at 1600 Start: 06-04-2019 take 10 mL intravenously once 10 mL, Intravenous, PRN, Line Care, Starting Sat06/04/19 at 1536 After every IV line use Post-op sulfaSALAzine 500 mg oral tablet (11 sources) Aminosalicylate Start: 09-05-2021 take 1000 mg by mouth twice daily 1,000 mg, Oral, 2 TIMES DAILY, First dose on Sat09/05/21 at 2100, Until Discontinued Start: 12-06-2020 take 1000 mg by mout h twice daily 1,000 mg, Oral, 2 TIMES DAILY, First dose on Sat12/06/20 at 2100 Start: 06-04-2019 take 1000 mg by mout h twice daily 1,000 mg, Oral, 2 TIMES DAILY, First dose on Sat06/04/19 at 2100 take 2 tablets by mo uth twice daily sulfaSALAzine (AZULFIDINE) 500 MG tablet Take 1,000 mg by mouth 2 times daily 0 Active thiamine 100 mg oral tablet (11 sources) Start: 06-04-2019 take 100 mg by mouth once daily 100 mg, Oral, DAILY, First dose on Sat09/06/21 at 0900, Until Discontinued Problems Active Problems Problem Classification Problem Date Documented Da te Episodic/Chronic Abdominal pain (2 sources) Abdominal pain; Translations: [Unspecified abdominal pain] Episodic Acute and unspecified renal failure (1 source) Acute kidney failure, unspecified; Translations: [ACUTE KIDNEY FAILURE UNSPECIFIED] Onset: 10-23-2022 Episodic Cardiac dysrhythmias (9 sources) Atrial fibrillation; Translations: [Unspecified atrial fibrillation] Onset: 10-28-2013 11-25-2020 Chronic Chronic kidney disease (2 sources) Chronic kidney disease stage 4; Translations: [Chronic kidney disease, stage 4 (severe)] Chronic Congestive heart failure; nonhypertensive (1 source) Heart failure, unspecified; Translations: [HEART FAILURE UNSPECIFIED] Onset: 10-23-2022 Chronic Coronary atherosclerosis and other heart disease (2 sources) Atherosclerotic heart disease of [place] coronary artery without angina pectoris; Translations: [Coronary atherosclerosis due to calcified coronary lesion] Onset: 07-09-2022 Chronic Deficiency and other anemia (2 sources) Iron deficiency anemia; Translations: [Iron deficiency anemia, unspecified] Episodic Deficiency and other anemia (2 sources) Deficiency anemias; Translations: [Nutritional anemia, unspecified] Episodic Diabetes mellitus with complications (5 sources) Type 2 diabetes mellitus with diabetic chronic kidney disease; Translations: [Type 2 diabetes mellitus with diabetic autonomic (poly)neuropathy] Onset: 10-23-2022 Chronic Diabetes mellitus without complication (9 sources) Type 2 diabetes mellitus without complication; Translations: [Type 2 diabetes mellitus without complications] Onset: 10-28-2013 11-25-2020 Chronic E Codes: Fall (1 source) Unspecified fall, initial encounter; Translations: [UNSPECIFIED FALL INITIAL ENCOUNTER] Onset: 10-23-2022 Episodic Esophageal disorders (1 source) Gastro-esophageal reflux disease without esophagitis; Translations: [GERD WITHOUT ESOPHAGITIS] Onset: 10-23-2022 Chronic Essential hypertension (11 sources) Essential hypertension; Translations: [Essential (primary) hypertension] Onset: 10-28-2013 11-25-2020 Chronic Fluid and electrolyte disorders (1 source) Dehydration; Translations: [DEHYDRATION] Onset: 10-23-2022 Episodic Fracture of upper limb (1 source) Closed fracture of shaft of left humerus; Translations: [Unspecified fracture of shaft of humerus, left arm, initial encounter for closed fracture] Episodic Gastrointestinal hemorrhage (1 source) Rectal hemorrhage; Translations: [Rectal Bleeding] Episodic Hypertension with complications and secondary hypertension (1 source) Hypertensive heart and chronic kidney disease with heart failure and stage 1 through stage 4 chronic kidney disease, or unspecified chronic kidney disease; Translations: [HTN HRT CKD W/HF STAGE 1-4/UNS CKD] Onset: 10-23-2022 Chronic Mood disorders (2 sources) Recurrent major depression; Translations: [Major depressive disorder, recurrent, unspecified] Chronic Mood disorders (1 source) Mood disorders; Translations: [DEPRESSION UNSPECIFIED] Onset: 10-23-2022 Other aftercare (1 source) Other [place] [facility] (current) drug therapy; Translations: [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 CURRENT DRUG THERAPY] Onset: 10-23-2022 Episodic Other aftercare (1 source) 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 dealer (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) use of non-steroidal anti-inflammatories (NSAID); Translations: [INTERMEDIATE USE NSAID] Onset: 10-23-2022 Episodic Other aftercare (1 source) 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 dealer (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) use of aspirin; Translations: [INTERMEDIATE CURRENT USE OF ASPIRIN] Onset: 10-23-2022 Episodic Other circulatory disease (1 source) Orthostatic hypotension; Translations: [ORTHOSTATIC HYPOTENSION] Onset: 10-23-2022 Episodic Other connective tissue disease (3 sources) History of reverse prosthetic total arthroplasty of left shoulder; Translations: [Presence of left artificial shoulder joint] Onset: 09-06-2021 Chronic Other connective tissue disease (1 source) Presence of right artificial shoulder joint; Translations: [PRESENCE RT ARTIFICIAL SHOULDER JNT] Onset: 10-23-2022 Chronic Other connective tissue disease (1 source) Spasm; Translations: [Other muscle spasm] Episodic Other hereditary and degenerative nervous system conditions (1 source) Essential tremor; Translations: [ESSENTIAL TREMOR] Onset: 10-23-2022 Chronic Other injuries and conditions due to external causes (1 source) History of falling; Translations: [HISTORY OF FALLING] Onset: 10-23-2022 Episodic Other nervous system disorders (2 sources) Other chronic pain; Translations: [OTHER CHRONIC PAIN] Onset: 09-22-2022 Chronic Other nervous system disorders (1 source) Other specified mononeuropathies; Translations: [OTHER SPECIFIED MONONEUROPATHIES] Onset: 09-22-2022 Chronic Other nervous system disorders (3 sources) Postoperative pain ; Translations: [Other acute postprocedural pain] Episodic Other nervous system disorders (2 sources) Other abnormalities of gait and mobility; Translations: [Other abnormalities of gait and mobility] Onset: 12-12-2022 Episodic Other nervous system disorders (1 source) Impairment of balance; Translations: [Other abnormalities of gait and mobility] Episodic Other non-traumatic joint disorders (1 source) Pain in right shoulder; Translations: [PAIN IN RIGHT SHOULDER] Onset: 10-23-2022 Episodic Other non-traumatic joint disorders (1 source) Pain in left shoulder; Translations: [PAIN IN LEFT SHOULDER] Onset: 10-23-2022 Episodic Other non-traumatic joint disorders (1 source) Pain in right hip; Translations: [PAIN IN RIGHT HIP] Onset: 09-27-2022 Episodic Other non-traumatic joint disorders (5 sources) Pain in left hip; Translations: [PAIN IN LEFT HIP] Onset: 09-22-2022 Episodic Pathological fracture (1 source) Pathological fracture, right humerus, initial encounter for fracture; Translations: [PATH FX RT HUMERUS INITIAL ENC FX] Onset: 10-23-2022 Episodic Residual codes; unclassified (1 source) Dependence on other enabling machines and devices; Translations: [DEPEND OTH ENABLING MACHINES AND DEVICE] Onset: 10-23-2022 Chronic Residual codes; unclassified (1 source) Pain; Translations: [Pain, unspecified] Episodic Residual codes; unclassified (1 source) Other specified postprocedural states; Translations: [OTH SPECIFIED POSTPROCEDURAL STATES] Onset: 10-23-2022 Episodic Screening and history of mental health and substance abuse codes (1 source) Personal history of nicotine dependence; Translations: [PERSONAL HISTORY OF NICOTINE DEPEND] Onset: 10-23-2022 Episodic Spondylosis; intervertebral disc disorders; other back problems (20 sources) Degeneration of lumbar intervertebral disc; Translations: [Other intervertebral disc degeneration, lumbar region] Onset: 06-04-2019 06-04-2019 Chronic Spondylosis; intervertebral disc disorders; other back problems (20 sources) Nerve root disorder; Translations: [Radiculopathy, site unspecified] Onset: 11-25-2020 Episodic Syncope (2 sources) Syncope and collapse; Translations: [SYNCOPE AND COLLAPSE] Onset: 10-17-2022 Episodic Unclassified (3 sources) LOW BACK PAIN, UNSPECIFIED; Translations: [LOW BACK PAIN, UNSPECIFIED] Onset: 09-22-2022 Unclassified (1 source) CHRN KIDNEY DISEASE STG 3 UNSP; Translations: [CHRN KIDNEY DISEASE STG 3 UNSP] Onset: 10-23-2022 Unclassified (1 source) CONTACT W/AND (SUSP) EXPOS COVID-19; Translations: [CONTACT W/AND (SUSP) EXPOS COVID-19] Onset: 02-13-2022 Urinary tract infections (1 source) Urinary tract infection, site not specified; Translations: [UTI SITE NOT SPECIFIED] Onset: 10-23-2022 Episodic Past or Other Problems Problem Classification Problem Date Documented Date Episodic/Chronic Complications of surgical procedures or medical care (1 source) Periprosthetic fracture around internal prosthetic left shoulder joint, subsequent encounter; Translations: [PERIPRS FX ARND IP LT SHLDR JNT SUB] Onset: 04-28-2022 Episodic Other connective tissue disease (7 sources) H/O: arthrodesis; Translations: [Arthrodesis status] Onset: 03-18-2020 11-25-2020 Episodic Other connective tissue disease (3 sources) Rotator cuff arthropathy of left shoulder; Translations: [Unspecified rotator cuff tear or rupture of left shoulder, not specified as traumatic] Onset: 09-05-2021 Episodic Other connective tissue disease (1 source) Arthrodesis status; Translations: [ARTHRODESIS STATUS] Onset: 05-31-2022 Episodic Other connective tissue disease (4 sources) Impingement syndrome of right shoulder; Translations: [IMPINGEMENT SYNDROME RIGHT SHOULDER] Onset: 04-23-2022 Episodic Other fractures (9 sources) Pseudoarthrosis of spine; Translations: [Unspecified fracture of unspecified lumbar vertebra, subsequent encounter for fracture with nonunion] Onset: 11-25-2020 Episodic Other lower respiratory disease (1 source) Dyspnea, unspecified; Translations: [DYSPNEA UNSPECIFIED] Onset: 07-09-2022 Episodic Other non-traumatic joint disorders (1 source) Other specified joint disorders, right shoulder; Translations: [OTH SPECIFIED JOINT D/O RT SHOULDER] Onset: 06-26-2022 Episodic Other non-traumatic joint disorders (1 source) Pain in unspecified joint; Translations: [PAIN IN UNSPECIFIED JOINT] Onset: 02-01-2022 Episodic Residual codes; unclassified (7 sources) Absent kidney; Translations: [Acquired absence of kidney] Onset: 01-31-2019 11-25-2020 Episodic Unclassified (1 source) LOW BACK PAIN, UNSPECIFIED; Translations: [LOW BACK PAIN, UNSPECIFIED] Onset: 09-18-2022 Results Test Name Value Interpretation Reference Range Facility CT head/brain wo hector 12-12 CT head/brain wo [facility] [address] [address] [address] Scan Report Signed Patient: Deondre Lr MR#: [id number] 7 : 1955 Acct:[id number] Age/Sex: 67 / M ADM Date: 12/12/22 Loc: CT Room: Type: [facility] Attending Dr: ADRIANA Moreira APRN Copies to: Berta Hernandez APRN, CNP Ordering Provider: Berta Hernandez APRN, CNP Date of Service: 12/12/22 CT/CT head/brain wo con: FREQUENT FALLING BACKWARDS CT head/brain wo con 12/12/2022 1:06 PM SIGNS AND SYMPTOMS: Multiple syncopal episodes with unsteady gait FREQUENT FALLING BACKWARDS TECHNIQUE:Multi-dete ctor CT axial slices of the brain were obtained without IV contrast. CT was performed with one or more of the following dose reduction techniques: Automated exposure control, adjustment of the mA and/or kV according to patient size, or use of iterative reconstruction technique. COMPARISON: None. FINDINGS: There is no shift of the midline structures, acute intracranial bleeding, mass effects, or evidence of acute ischemia. Mild atherosclerotic changes are noted in the intracranial segments of the internal carotid arteries. There is mild diffuse age-related cortical atrophy. The ventricular system is normal in size. The brainstem and the cerebellum are unremarkable. The visualized intraorbital contents, the visualized paranasal sinuses, and the infratemporal soft tissues show no acute abnormality. The osseous structures in the skull base and the calvarium show no abnormality. CT/CT head/brain wo con IMPRESSION: No acute intracranial pathology. Mild chronic age-related neurodegenerative changes are noted, as above. Impression dictated by: Debby Ray M.D.12/12/2022 3:54 PM Dictation Location: [place] [address] Transcribed By: [facility] 12/12/22 1556 Dictated By: Debby Ray II, MD 12/12/22 1559 Signed By: 12/12/22 1558 [facility] CULTURE URINEon 10-21-2022 CULTURE URINE Isolate 1 Escherichia coli >100,000 cfu/mL of Isolate 2 Pseudomonas aeruginosa 50,000 cfu/mL of ORGANISM 1 Escherichia coli ANTIBIOTIC M.I.C RX STATUS Ampicillin >=32 R F Ampicillin/Sulbactam >=32 R F Piperacillin/Tazobac matute 64 I F Cefazolin 8 S F Ceftazidime <=1 S F Ceftriaxone <=1 S F Ertapenem <=0.5 S F Imipenem <=0.25 S F Amikacin <=2 S F Gentamicin <=1 S F Tobramycin <=1 S F Ciprofloxacin <=0.25 S F Levofloxacin <=0.12 S F Nitrofurantoin <=16 S F Trimethoprim/Sulfame thoxazole <=20 S F ORGANISM 2 Pseudomonas aeruginosa ANTIBIOTIC M.I.C RX STATUS Piperacillin/Tazobac matute <=4 S F Ceftazidime <=1 S F Imipenem <=0.25 S F Amikacin <=2 S F Gentamicin <=1 S F Tobramycin <=1 S F Ciprofloxacin <=0.25 S F Levofloxacin 0.25 S F Normal [facility] Comment on above: Performed By: #### U RCX ####[facility] [id number] [place] [address]Dr. Olga So CBC AUTO DIFFon 10-19-2022 BASO # 0.0 103/ul Normal 0.0-0.1 [facility] Comment on above: Performed By: #### C HYUN HSTROPDago, TSH #### [facility] [address] [place] [address] Dr. Olga So Basophils/100 WBC (Bld) 0.6 % Normal 0.2-2.0 [facility] Comment on above: Performed By: #### C HYUN HSTROPN, TSH #### [facility] [address] [place] [address] Dr. Olga So EO # 0.2 103/ul Normal 0.0-0.7 [facility] Comment on above: Performed By: #### C HYUN HSTROPN, TSH #### [facility] [address] [place] [address] Dr. Olga So Eosinophils/100 WBC (Bld) 3.7 % Normal 0.9-7.0 [facility] Comment on above: Performed By: #### C HYUN HSTROPN, TSH #### [facility] [address] [place] [address] Dr. Olga So Erythrocyte distribution width (RBC) [Ratio] 13.0 % Normal 11.0-15.0 [facility] Comment on above: Performed By: #### C MP, HSTROPN, TSH #### [facility] [address] [place] [address] Dr. Olga So Hematocrit (Bld) [Volume fraction] 28.8 % Critically low 42.0-54.0 [facility] Comment on above: Performed By: #### C MP, HSTROPN, TSH #### [facility] [address] [place] [address] [address] Olga So Hemoglobin (Bld) [Mass/Vol] 9.3 g/dL Critically low 14.0-18.0 [facility] Comment on above: Performed By: #### C MP, HSTROPN, TSH #### [facility] [address] [place] [address] Dr. Olga So IG # 0.02 10e3/ul Normal 0.00-0.03 [facility] Comment on above: Performed By: #### C MP, HSTROPN, TSH #### [facility] [address] [place] [address] [address] Olga So IG % 0.3 % Normal 0.0-0.5 [facility] Comment on above: Performed By: #### C MP, HSTROPN, TSH #### [facility] [address] [address] [address] Olga So LYMPH # 2.2 103/ul Normal 1.2-3.8 [facility] Comment on above: Performed By: #### C MP, HSTROPN, TSH #### [facility] [address] [address] [address] Olga So Lymphocytes/100 WBC (Bld) 33.8 % Normal 20.5-60.0 [facility] Comment on above: Performed By: #### C MP, HSTROPN, TSH #### [facility] [address] [place] [address] [address] Olga So MANUAL DIFF REQ NO Normal [facility] Comment on above: Performed By: #### C MP, HSTROPN, TSH #### [facility] [address] [place] [address] Dr. Olga So MCH (RBC) [Entitic mass] 30.4 pg Normal 25.9-34.0 [facility] Comment on above: Performed By: #### C MP, HSTROPN, TSH #### [facility] [address] [place] [address] Dr. Olga So MCHC (RBC) [Mass/Vol] 32.3 g/dL Normal 29.9-35.2 [facility] Comment on above: Performed By: #### C HYUN, HSTROPN, TSH #### [facility] [address] [place] [address] Dr. Olga So MCV (RBC) [Entitic vol] 94.1 fL Critically high 80.0-94.0 [facility] Comment on above: Performed By: #### C MP, HSTROPN, TSH #### [facility] [address] [place] [address] Dr. Olga So MONO # 0.5 103/ul Normal 0.3-0.8 [facility] Comment on above: Performed By: #### C HYUN, HSTROPN, TSH #### [facility] [address] [place] [address] Dr. Olga So Monocytes/100 WBC (Bld) 7.1 % Normal 1.7-12.0 [facility] Comment on above: Performed By: #### C MP, HSTROPN, TSH #### [facility] [address] [place] [address] Dr. Olga So NEUT # 3.5 103/ul Normal 1.4-6.5 [facility] Comment on above: Performed By: #### C HYUN, HSTROPN, TSH #### [facility] [address] [place] [address] Dr. Olga So Neutrophils/100 WBC (Bld) 54.5 % Normal 43.0-75.0 [facility] Comment on above: Performed By: #### C MP, HSTROPN, TSH #### [facility] [address] [address] [address] Olga So Platelet mean volume (Bld) [Entitic vol] 9.3 fL Critically low 9.5-13.5 [facility] Comment on above: Performed By: #### C MP, HSTROPN, TSH #### [facility] [address] [address] [address] Olga So PLT 276 103/ul Normal 150-450 [facility] Comment on above: Performed By: #### C MP, HSTROPN, TSH #### [facility] [address] [place] [address] Dr. Olga So RBC 3.06 106/ul Critically low 4.70-6.10 [facility] Comment on above: Performed By: #### C MP, HSTROPN, TSH #### [facility] [address] [place] [address] Dr. Olga oS WBC 6.5 103/ul Normal 4.0-11.0 [facility] Comment on above: Performed By: #### C MP, HSTROPN, TSH #### [facility] [address] [place] [address] Dr. Olga So POINT OF CARE GLUCOSEon 09-25 Glucose [Mass/Vol] 143 mg/dL Critically high 74-106 [facility] Comment on above: Performed By: #### P OCGLUC #### [facility] [address] [place] [address] Dr. Olga So Glucose [Mass/Vol] 156 mg/dL Critically high 74-106 [facility] Comment on above: Performed By: #### P OCGLUC #### [facility] [address] [place] [address] Dr. Olga So PROF 14(COMP METB)on 023 Albumin [Mass/Vol] 2.9 g/dL Critically low 3.4-5.0 [facility] Comment on above: Performed By: #### P OCGLUC #### [facility] [address] [place] [address] Dr. Olga So Albumin/Globulin [Mass ratio] 0.6 {ratio} Normal [facility] Comment on above: Performed By: #### P OCGLUC #### [facility] [address] [address] [address] Olga So ALP [Catalytic activity/Vol] 155 U/L Critically high 46-116 [facility] Comment on above: Performed By: #### P OCGLUC #### [facility] [address] [place] [address] [address] Olga So ALT [Catalytic activity/Vol] 23 U/L Normal 16-63 [facility] Comment on above: Performed By: #### P OCGLUC #### [facility] [address] [place] [address] Dr. Olga So Anion gap [Moles/Vol] 12.4 mmol/L Normal [facility] Comment on above: Performed By: #### P OCGLUC #### [facility] [address] [address] [address] Olga So AST [Catalytic activity/Vol] 19 U/L Normal 15-37 [facility] Comment on above: Performed By: #### P OCGLUC #### [facility] [address] [address] [address] Olga So Calcium [Mass/Vol] 8.5 mg/dL Normal 8.5-10.1 [facility] Comment on above: Performed By: #### P OCGLUC #### [facility] [address] [address] [address] Olga So Chloride [Moles/Vol] 104 mmol/L Normal 98-107 [facility] Comment on above: Performed By: #### P OCGLUC #### [facility] [address] [place] [address] Dr. Olga So CO2 [Moles/Vol] 27.3 mmol/L Normal 21.0-32.0 [facility] Comment on above: Performed By: #### P OCGLUC #### [facility] [address] [place] [address] Dr. Olga So Creatinine [Mass/Vol] 1.13 mg/dL Normal 0.70-1.30 [facility] Comment on above: Performed By: #### P OCGLUC #### [facility] [address] [address] [address] Olga So EGFR-AF MALAYSIAN >60 Normal >=60 [facility] Comment on above: Performed By: #### P OCGLUC #### [facility] [address] [address] [address] Olga So EGFR-NON AF MALAYSIAN >60 Normal >=60 [facility] Comment on above: Performed By: #### P OCGLUC #### [facility] [address] [address] [address] Olga So Globulin (S) [Mass/Vol] 4.7 g/dL Normal [facility] Comment on above: Performed By: #### P OCGLUC #### [facility] [address] [address] [address] Olga So Glucose [Mass/Vol] 147 mg/dL Critically high 74-106 [facility] Comment on above: Performed By: #### P OCGLUC #### [facility] [address] [address] [address] Olga So Potassium [Moles/Vol] 4.7 mmol/L Normal 3.5-5.1 [facility] Comment on above: Performed By: #### P OCGLUC #### [facility] [address] [address] [address] Olga So Protein [Mass/Vol] 7.6 g/dL Normal 6.4-8.2 [facility] [place] Comment on above: Performed By: #### P OCGLUC #### [facility] [address] [address] [address] Olga So Sodium [Moles/Vol] 139 mmol/L Normal 136-145 [facility] Comment on above: Performed By: #### P OCGLUC #### [facility] [address] [address] [address] Olga So TBIL <0.1 Critically low 0.2-1.0 [facility] Comment on above: Performed By: #### P OCGLUC #### [facility] [address] [place], [place] [address] Dr. Olga So Urea nitrogen [Mass/Vol] 16.0 mg/dL Normal 7.0-18.0 [facility] Comment on above: Performed By: #### P OCGLUC #### [facility] [address] [place], [place] [address] Dr. Olga So Urea nitrogen/Creatinine [Mass ratio] 14.2 mg/mg Normal [facility] Comment on above: Performed By: #### P OCGLUC #### [facility] [id number] Olga So ECHOCARDIO M/2D COMPLETEon 0 10-18-2022 ECHOCARDIO M/2D COMPLETE Patient: DEONDRE LR Exam Date: 10/18/2022 : 1955 Gender:M Ordering : SHAIKH Uyen VARGAS . Admission #: [id number] Family : DR MIKE YUAN M.D. Order #: [id number] CLICK HERE TO VIEW EXAM ECHOCARDIOGRAM REPORT PROCEDURE: CARDIO PULMONARY ECHOCARDIO M/2D COMP INDICATIONS: General weakness, CHF, hypertension, diabetes COMPARISON: None. DESCRIPTION: COMPLETE ECHOCARDIOGRAM Real-time transthoracic echocardiography with 2D, M-mode, spectral and color flow Doppler performed. QUALITY: Technical quality was good. LEFT VENTRICLE: Normal chamber size. Mild concentric left ventricular hypertrophy. LV EF: Normal left ventricular ejection fraction, (>55%). DIASTOLIC: Normal diastolic function. ATRIAL SEPTUM: Inadequately seen. LEFT ATRIUM: Normal chamber size. RIGHT ATRIUM: Normal chamber size. RIGHT VENTRICLE: Normal chamber size. Decreased right ventricular systolic function. TRICUSPID VALVE: Normal mobility and thickness. No stenosis with mild regurgitation. No evidence of pulmonary hypertension. RVSP 27 mmHg MITRAL VALVE: Normal mobility and thickness. No evidence of mitral valve stenosis. There is no mitral annular calcification. Trivial mitral regurgitation. AORTIC VALVE: Normal trileaflet appearance. No visible sclerosis. Normal leaflet mobility. No evidence of aortic valve stenosis. Trivial aortic regurgitation. AORTIC ROOT: Normal diameter and appearance. PULMONIC VALVE: Normal thickness and mobility. No stenosis. Trivial regurgitation. PERICARDIUM: No evidence of pericardial effusion. IVC: Within normal limits. CONCLUSION: Global left ventricular systolic function is normal; visually estimated ejection fraction is 55 to 60%. No significant wall motion abnormalities. Mild left ventricular hypertrophy. The right ventricle is normal in size; systolic function appears decreased. Mild tricuspid regurgitation. Adult Echocardiography Procedure Report Left Ventricle LVEDD (3.7 - 5.6 cm): 3.69 cm LVESD (2.2 - 4.0 cm): 2.32 cm LVIVS thickness (0.6 - 1.2 cm): 1.31 cm LVPW thickness (0.5 - 1.0 cm): 1.19 cm LVOT Max Gradient: 4 mm[Hg] Peak Velocity (LVOT): 102.00 cm/s LVOT Diameter 2.20 cm Left Ventricular Ejection Fraction: 68 % Left Atrium LA Volume Index (2D A2C): 02405 mm3 Left Atrium Systolic Dimension: 4.30 cm Mitral Valve MV E to A Ratio: 1.70 Mitral Valve A-Wave Peak Velocity: 48.20 cm/s Mitral Valve E-Wave Peak Velocity: 83.70 cm/s Right Ventricle Aorta AO Root Diam: 3.50 cm Aortic Valve AoV Area (Peak Will): 3.46 cm2 Peak Velocity(Antegrade Flow): 112.00 cm/s Peak Gradient(Antegrade Flow): 5 mm[Hg] Tricuspid Valve Peak Velocity (Regurgitant Flow): 245.00 cm/s Peak Velocity: 51.50 cm/s Pulmonic Valve Peak Velocity: 114.00 cm/s, 128.00 cm/s Peak Gradient: 6 mm[Hg] Right Atrium Dictated by: Cydney Redmond M.D. on 10/19/2022 at 10:41 Approved by: Cydney Redmond M.D. on 10/19/2022 at 10:43 Normal [facility] POINT OF CARE GLUCOSEon 09-25 Glucose [Mass/Vol] 169 mg/dL Critically high 74-106 [facility] Comment on above: Performed By: #### P OCGLUC #### [facility] [address] [place] [address] Dr. Olga So Glucose [Mass/Vol] 117 mg/dL Critically high 74-106 [facility] [place] Comment on above: Performed By: #### P OCGLUC #### [facility] [address] [address] [address] Olga So Glucose [Mass/Vol] 162 mg/dL Critically high -106 [facility] [place] Comment on above: Performed By: #### C MP, HSTROPN, TSH #### [facility] [address] [address] [address] Olga So Glucose [Mass/Vol] 109 mg/dL Critically high -106 [facility] [place] Comment on above: Performed By: #### P OCGLUC #### [facility] [address] [address] [address] Olga So Glucose [Mass/Vol] 187 mg/dL Critically high -106 [facility] [place] Comment on above: Performed By: #### P OCGLUC #### [facility] [address] [address] [address] Olga So US CAROTID ART BILon 25-2 023 US CAROTID ART NOHELIA EXAMINATION: US CAROTID ART NOHELIA HISTORY: Dizziness COMPARISON: No relevant comparison available. TECHNIQUE: Duplex Doppler ultrasound analysis of carotid and vertebral arteries. . Bilateral carotid arterial duplex examination was performed using B-mode, color flow and spectral analysis. Carotid stenosis is reported according to validated velocity parameters, similar to NASCET criteria. FINDINGS: Limited exam as the patient was sleeping RIGHT CAROTID ARTERY Mild plaque without visible stenosis Subclavian: PSV: 74.5 cm/s cm/s EDV: 24.1 cm/s cm/s CCA: Prox: PSV: 110.8 cm/s cm/s EDV: 30.0 cm/s cm/s Mid: PSV: 101.1 cm/s cm/s EDV: 43.0 cm/s cm/s Distal: PSV: 65.5 cm/s cm/s EDV: 22.6 cm/s cm/s BULB: PSV: 92.9 cm/s cm/s EDV: 16.0 cm/s cm/s ICA: Prox: PSV: 90.1 cm/s cm/s EDV: 37.0 cm/s cm/s Mid: PSV: 123.7 cm/s cm/s EDV: 41.4 cm/s cm/s Distal: PSV: 144.7 cm/s cm/s EDV: 59.1 cm/s cm/s ECA: PSV: 73.2 cm/s cm/s EDV: 14.9 cm/s cm/s VERTEBRAL: PSV: 55.5 cm/s cm/s EDV: 24.1 cm/s cm/s ICA/CCA ratio: PSV: 2.2 EDV: 2.6 LEFT CAROTID ARTERY Mild plaque without visible stenosis Subclavian: PSV: 149.6 cm/s cm/s EDV: 18.7 cm/s CCA: Prox: PSV: 130.2 cm/s cm/s EDV: 33.3 cm/s Mid: PSV: 104.3 cm/s cm/s EDV: 30.0 cm/s Distal: PSV: 89.8 cm/s cm/s EDV: 34.9 cm/s BULB: PSV: 52.6 cm/s cm/s EDV: 15.3 cm/s ICA: Prox: PSV: 109.7 cm/s cm/s EDV: 40.2 cm/s Mid: PSV: 91.9 cm/s cm/s EDV: 38.6 cm/s Distal: PSV: 121.0 cm/s cm/s EDV: 48.3 cm/s ECA: PSV: 51.6 cm/s cm/s EDV: 8.7 cm/s VERTEBRAL: PSV: 51.6 cm/s cm/s EDV: 21.9 cm/s ICA/CCA ratio: PSV: 1.3 EDV: 1.4 IMPRESSION: 0-49% flow stenosis bilateral internal carotid arteries Spectral Doppler US Thresholds (Reference: Brady EG, et al. Radiology 2000; 214:247-252) Stenosis (%) PSV (cm/sec) VICA/VCCA 0-49 <150 <2.5 50-69 150-225 2.5-4.0 >70 >225 >4.0 Electronically authenticated by: RAMONA WAGGONER Date: 2022-10-18 16:24 Normal [facility] XR LSPINE 2_3 VIEWSon 2022 XR LSPINE 2_3 VIEWS EXAMINATION: XR LSPINE 2_3 VIEWS HISTORY: Sacroiliac joint inflamed COMPARISON: No relevant comparison available. FINDINGS: BONES: Posterior decompression and bilateral transpedicular fusion L3-S1. No acute fracture, spondylolisthesis or mechanical failure. Mild degenerative spondylosis. Moderate facet osteoarthropathy DISC SPACES: Interbody spacers L4-5 and L5-S1 PARASPINOUS: Negative. No paraspinous abnormality is seen. OTHER: Negative. IMPRESSION: Stable lumbosacral fusion Electronically authenticated by: RAMONA WAGGONER Date: 2022-10-18 14:35 Normal [facility] XR SHOULDER NOHELIA 2V or >on XR SHOULDER NOHELIA 2V or > EXAMINATION: XR SHOULDER NOHELIA 2V or > HISTORY: Dizziness COMPARISON: No relevant comparison available. FINDINGS: RIGHT FINDINGS: BONES: Right shoulder reverse arthroplasty. No acute fracture, dislocation or mechanical failure. SOFT TISSUES: Negative. No visible soft tissue swelling. OTHER: Degenerative changes of the spine LEFT FINDINGS: BONES: Left shoulder reverse arthroplasty. Subacute/chronic fracture of the proximal humerus with bulky heterotopic ossification. No acute fracture or dislocation. No mechanical failure. SOFT TISSUES: Negative. No visible soft tissue swelling. OTHER: Negative. IMPRESSION: RIGHT CONCLUSION: Shoulder arthroplasty LEFT CONCLUSION: Shoulder arthroplasty with subacute/chronic proximal humerus fracture Electronically authenticated by: RAMONA WAGGONER Date: 2022-10-18 12:15 Normal [facility] CBC AUTO DIFFon 10-17-2022 BASO # 0.1 103/ul Normal 0.0-0.1 [facility] Comment on above: Performed By: #### P OCGLUC #### [facility] [address] [address] [address] Olga So Basophils/100 WBC (Bld) 0.5 % Normal 0.2-2.0 [facility] Comment on above: Performed By: #### P OCGLUC #### [facility] [address] [address] [address] Olga So EO # 0.3 103/ul Normal 0.0-0.7 [facility] Comment on above: Performed By: #### P OCGLUC #### [facility] [address] [address] [address] Olga So Eosinophils/100 WBC (Bld) 3.0 % Normal 0.9-7.0 [facility] Comment on above: Performed By: #### P OCGLUC #### [facility] [address] [address] [address] Olga So Erythrocyte distribution width (RBC) [Ratio] 13.3 % Normal 11.0-15.0 [facility] Comment on above: Performed By: #### P OCGLUC #### [facility] [address] [address] [address] Olga So Hematocrit (Bld) [Volume fraction] 32.6 % Critically low 42.0-54.0 [facility] Comment on above: Performed By: #### P OCGLUC #### [facility] [address] [place] [address] Dr. Olga So Hemoglobin (Bld) [Mass/Vol] 10.1 g/dL Critically low 14.0-18.0 [facility] Comment on above: Performed By: #### P OCGLUC #### [facility] [address] [place] [address] Dr. Olga So IG # 0.04 10e3/ul Critically high 0.00-0.[address] [facility] Comment on above: Performed By: #### P OCGLUC #### [facility] [address] [place] [address] Dr. Olga So IG % 0.4 % Normal 0.0-0.5 [facility] Comment on above: Performed By: #### P OCGLUC #### [facility] [address] [place] [address] Dr. Olga So LYMPH # 2.5 103/ul Normal 1.2-3.8 [facility] Comment on above: Performed By: #### P OCGLUC #### [facility] [address] [place] [address] Dr. Olga So Lymphocytes/100 WBC (Bld) 24.3 % Normal 20.5-60.0 [facility] Comment on above: Performed By: #### P OCGLUC #### [facility] [address] [place] [address] Dr. Olga So MANUAL DIFF REQ NO Normal [facility] Comment on above: Performed By: #### P OCGLUC #### [facility] [address] [address] [address] Olga So MCH (RBC) [Entitic mass] 30.2 pg Normal 25.9-34.0 [facility] Comment on above: Performed By: #### P OCGLUC #### [facility] [address] [address] [address] Olga So MCHC (RBC) [Mass/Vol] 31.0 g/dL Normal 29.9-35.2 [facility] Comment on above: Performed By: #### P OCGLUC #### [facility] [address] [address] [address] Olga So MCV (RBC) [Entitic vol] 97.6 fL Critically high 80.0-94.0 [facility] Comment on above: Performed By: #### P OCGLUC #### [facility] [address] [address] [address] Olga So MONO # 0.8 103/ul Normal 0.3-0.8 [facility] Comment on above: Performed By: #### P OCGLUC #### [facility] [address] [address] [address] Olga So Monocytes/100 WBC (Bld) 7.3 % Normal 1.7-12.0 [facility] Comment on above: Performed By: #### P OCGLUC #### [facility] [address] [address] [address] Olga So NEUT # 6.7 103/ul Critically high 1.4-6.5 [facility] Comment on above: Performed By: #### P OCGLUC #### [facility] [address] [address] [address] Olga So Neutrophils/100 WBC (Bld) 64.5 % Normal 43.0-75.0 [facility] Comment on above: Performed By: #### P OCGLUC #### [facility] [address] [address] [address] Olga So Platelet mean volume (Bld) [Entitic vol] 9.7 fL Normal 9.5-13.5 [facility] Comment on above: Performed By: #### P OCGLUC #### [facility] [address] [place], [place] [address] Dr. Olga So PLT 402 103/ul Normal 150-450 [facility] Comment on above: Performed By: #### P OCGLUC #### [facility] [address] [place], [place] [address] [address]. Olga So RBC 3.34 106/ul Critically low 4.70-6.10 [facility] Comment on above: Performed By: #### P OCGLUC #### [facility] [address] [place], [place] [address] Dr. Olga So WBC 10.4 103/ul Normal 4.0-11.0 [facility] Comment on above: Performed By: #### P OCGLUC #### [facility] [address] [place], [place] [address] HEAD WO CONon 10-17-2022 CT HEAD WO CON EXAMINATION: CT HEAD WO CON, 10/17/2022 6:32 PM EDT HISTORY: Dizziness COMPARISON: 11/12/2015 TECHNIQUE: CT scan of the head was performed without IV contrast. CT dose reduction technique was used, including Automated Exposure Control. FINDINGS: BRAIN PARENCHYMA/CSF SPACES: Ventricles are normal in size for age. There is no hemorrhage, mass effect or midline shift. There is diffuse cerebral atrophy. Periventricular white matter hypodensities compatible with chronic small vessel ischemic changes. PARANASAL SINUSES: Clear. SKULL BASE AND CALVARIUM: Normal. EXTRACRANIAL SOFT TISSUES: Normal. IMPRESSION: No acute intracranial findings. Electronically authenticated by: PANDA GURROLA Date: 2022-10-17 19:22 Normal [facility] CULTURE BLOODon 10-17-2022 Microscopic examination of blood, culture Culture Observations: NO GROWTH AT 5 DAYS. Normal [facility] Comment on above: Performed By: #### B LDCX2 ####[facility] [id number] [place], [place] [address]GlDr. Olga So Microscopic examination of blood, culture Culture Observations: NO GROWTH AT 5 DAYS. Normal [facility] Comment on above: Performed By: #### B LDCX1 ####[facility] [id number] [address] Olga So ER URINE PROFILEon 3 Bilirubin Ql (U) Negative Normal NEGATIVE [facility] Comment on above: Performed By: #### U MICRO, ERUR #### [facility] [address] [address] [address] Olga So Clarity (U) CLEAR Normal CLEAR [facility] Comment on above: Performed By: #### U MICRO, ERUR #### [facility] [address] [address] [address] Olga So Color (U) LT. YELLOW Normal YELLOW [facility] Comment on above: Performed By: #### U MICRO, ERUR #### [facility] [address] [place] [address] Dr. Olga ARAGON A micrscopic examination will be performed if indicated. Normal [facility] Comment on above: Performed By: #### U MICRO, ERUR #### [facility] [address] [address] [address] Olga So Glucose Ql (U) Negative Normal NEGATIVE [facility] Comment on above: Performed By: #### U MICRO, ERUR #### [facility] [address] [address] [address] Olga So Hemoglobin Ql (U) Negative Normal NEGATIVE [facility] Comment on above: Performed By: #### U MICRO, ERUR #### [facility] [address] [address] [address] Olga So Ketones Ql (U) Negative Normal NEGATIVE [facility] Comment on above: Performed By: #### U MICRO, ERUR #### [facility] [address] [address] [address] Olga So LEUKOCYTES SMALL Abnormal NEGATIVE [facility] Comment on above: Performed By: #### U MICRO, ERUR #### [facility] [address] [address] [address] Olga So Nitrite Ql (U) Positive Abnormal NEGATIVE [facility] Comment on above: Performed By: #### U MICRO, ERUR #### [facility] [address] [address] [address] Olga So pH (U) 5.5 [pH] Normal 5-9 [facility] Comment on above: Performed By: #### U MICRO, ERUR #### [facility] [address] [place] [address] Dr. Olga So SPEC GRAVITY 1.020 Normal 1.005-<=1.[address] [place] [address] Comment on above: Performed By: #### U MICRO, ERUR #### [facility] [address] [place] [address] Dr. Olga So UA PROTEIN Negative Normal NEGATIVE/ TRACE [facility] Comment on above: Performed By: #### U MICRO, ERUR #### [facility] [address] [place] [address] Dr. Olga So UR MICRO IND INDICATED Normal [facility] Comment on above: Performed By: #### U MICRO, ERUR #### [facility] [address] [place] [address] Dr. Olga So Urobilinogen Qn (U) 0.2 {Judson'U}/dL Normal 0.2 - 1. 0 [facility] Comment on above: Performed By: #### U MICRO, ERUR #### [facility] [address] [place] [address] Dr. Olga So LACTATE/LACTIC ACIDon 2022 Lactate [Moles/Vol] 0.8 mmol/L Normal 0.4-2.0 [facility] Comment on above: Performed By: #### L ACT ####[facility] [address] [address] Olga So PROF 14(COMP METB)on 023 Albumin [Mass/Vol] 3.7 g/dL Normal 3.4-5.0 [facility] Comment on above: Performed By: #### C MP, HSTROPN, TSH #### [facility] [address] [place] [address] Dr. Olga So Albumin/Globulin [Mass ratio] 0.7 {ratio} Normal [facility] Comment on above: Performed By: #### C HYUN HSTROPN, TSH #### [facility] [address] [place] [address] Dr. Olga So ALP [Catalytic activity/Vol] 160 U/L Critically high 46-116 [facility] Comment on above: Performed By: #### C HYUN HSTROPN, TSH #### [facility] [address] [place] [address] Dr. Olga So ALT [Catalytic activity/Vol] 18 U/L Normal 16-63 [facility] Comment on above: Performed By: #### C HYUN HSTROPN, TSH #### [facility] [address] [place] [address] Dr. Olga So Anion gap [Moles/Vol] 13.2 mmol/L Normal [facility] Comment on above: Performed By: #### C HYUN HSTROPN, TSH #### [facility] [address] [place] [address] Dr. Olga So AST [Catalytic activity/Vol] 17 U/L Normal 15-37 [facility] Comment on above: Performed By: #### C HYUN HSTROPN, TSH #### [facility] [address] [place] [address] Dr. Olga So Bilirubin [Mass/Vol] 0.2 mg/dL Normal 0.2-1.0 [facility] Comment on above: Performed By: #### C HYUN HSTROPN, TSH #### [facility] [address] [place] [address] Dr. Olga So Calcium [Mass/Vol] 8.2 mg/dL Critically low 8.5-10.1 [facility] Comment on above: Performed By: #### C HYUN HSTROPN, TSH #### [facility] [address] [place] [address] Dr. Olga So Chloride [Moles/Vol] 106 mmol/L Normal 98-107 [facility] Comment on above: Performed By: #### C MP, HSTROPN, TSH #### [facility] [address] [place] [address] Dr. Olga So CO2 [Moles/Vol] 26.3 mmol/L Normal 21.0-32.0 [facility] Comment on above: Performed By: #### C MP, HSTROPN, TSH #### [facility] [address] [place] [address] Dr. Olga So Creatinine [Mass/Vol] 2.30 mg/dL Critically high 0.70-1.30 [facility] Comment on above: Performed By: #### C MP, HSTROPN, TSH #### [facility] [address] [place] [address] Dr. Olga So EGFR-AF MALAYSIAN 35 mL/min/1.73m2 Critically low >=60 [facility] Comment on above: Performed By: #### C MP, HSTROPN, TSH #### [facility] [address] [place] [address] Dr. Olga So EGFR-NON AF MALAYSIAN 29 mL/min/1.73m2 Critically low >=60 [facility] Comment on above: Performed By: #### C MP, HSTROPN, TSH #### [facility] [address] [place] [address] Dr. Olga So Globulin (S) [Mass/Vol] 5.2 g/dL Normal [facility] Comment on above: Performed By: #### C MP, HSTROPN, TSH #### [facility] [address] [place] [address] Dr. Olga So Glucose [Mass/Vol] 124 mg/dL Critically high 74-106 T [facility] Comment on above: Performed By: #### C MP, HSTROPN, TSH #### [facility] [address] [place] [address] Dr. Olga So Potassium [Moles/Vol] 4.5 mmol/L Normal 3.5-5.1 [facility] Comment on above: Performed By: #### C MP, HSTROPN, TSH #### [facility] [address] [address] [address] Olga So Protein [Mass/Vol] 8.9 g/dL Critically high 6.4-8.2 T [facility] Comment on above: Performed By: #### C HYUN HSTROPN, TSH #### [facility] [address] [address] [address] Olga So Sodium [Moles/Vol] 141 mmol/L Normal 136-145 [facility] Comment on above: Performed By: #### C HYUN HSTROPN, TSH #### [facility] [address] [address] [address] Olga So Urea nitrogen [Mass/Vol] 52.0 mg/dL Critically high 7.0-18.0 [facility] Comment on above: Performed By: #### C HYUN HSTROPN, TSH #### [facility] [address] [address] [address] Olga So Urea nitrogen/Creatinine [Mass ratio] 22.6 mg/mg Normal [facility] Comment on above: Performed By: #### C HYUN, HSTROPN, TSH #### [facility] [address] [address] [address] Olga So PROTIMEon 10-17-2022 INR Coag (PPP) [Relative time] 0.95 {INR} Normal [facility] Comment on above: Performed By: #### P TT, PT ####[facility] [id number] [address]Dr. Olga So INR GUIDELINES SEE BELOW Normal [facility] Comment on above: Result Comment: DEBBIE RED INR: 2.0 - 3.0 CONDITIONS NOT LISTED BELOW 2.5 - 3.5 FOR PROSTHETIC HEART VALVE REPLACEMENT 2.5 - 3.5 RECURRENT THROMBOSIS Performed By: #### P TT, PT ####[facility] [id number] [address]Dr. Olga So PT Coag (PPP) [Time] 10.1 s Normal 9.0-11.6 [facility] Comment on above: Performed By: #### P TT, PT ####[facility] [id number] [address]Dr. Olga So PTTon 10-17-2022 aPTT Coag (Bld) [Time] 29.3 s Normal 22.3-36.2 [facility] Comment on above: Performed By: #### P TT, PT #### [facility] [address] [place] [address] Dr. Olga So TROPONIN, HIGH SENSITIVITYon 10-17-2022 HSTROP 5.5 pg/mL Normal 4.0-76.1 [facility] Comment on above: Result Comment: CUT- OFF POINTS HAVE BEEN ESTABLISHED BASED ON THE FOURTH UNIVERSAL DEFINITIONS OF MYOCARDIAL INFARCTION. THE UPPER REFERENCE LIMIT (URL) OF TROPONIN, DEFINED THE 99TH PERCENTILE OF cTnI DISTRIBUTION IN A REFERENCE POPULATION, HAS BEEN CONFIRMED THE DECISION THRESHOLD FOR MS DIAGNOSIS. Performed By: #### C MP, HSTROPN, TSH #### [facility] [address] [place] [address] Dr. Olga So TSHon 10-17-2022 TSH 0.980 uIU/mL Normal 0.358-3.740 [facility] Comment on above: Performed By: #### C MP, HSTROPN, TSH #### [facility] [address] [place] [address] Dr. Olga So URINE MICROSCOPIC ONLYon BACTERIA SMALL Abnormal NONE SEEN [facility] Comment on above: Performed By: #### U MICRO, ERUR #### [facility] [address] [place] [address] Dr. Olga So Bacteria identified Cx Nom (U) INDICATED Normal [facility] Comment on above: Performed By: #### U MICRO, ERUR #### [facility] [address] [place] [address] Dr. Olga So CAST NONE SEEN Normal NONE SEEN [facility] Comment on above: Performed By: #### U MICRO, ERUR #### [facility] [address] [place] [address] Dr. Olga So Crystals LM Nom (Urine sed) NONE SEEN Normal NONE SEEN [facility] Comment on above: Performed By: #### U MICRO, ERUR #### [facility] [address] [address] [address] Olga So Epithelial cells LM Ql (Urine sed) FEW Abnormal NONE SEEN /RARE [facility] Comment on above: Performed By: #### U MICRO, ERUR #### [facility] [address] [address] [address] Olga So MUCOUS NONE SEEN Normal NONE SEEN [facility] Comment on above: Performed By: #### U MICRO, ERUR #### [facility] [address] [address] [address] Olga So RBC 2-5 Abnormal 0-2 [facility] Comment on above: Performed By: #### U MICRO, ERUR #### [facility] [address] [address] [address] Olga So WBC 50-75 Abnormal NONE SEEN [facility] Comment on above: Performed By: #### U MICRO, ERUR #### [facility] [address] [address] [address] Olga So XR CHEST 1 Von 10-17-2022 XR CHEST 1 V EXAM: XR CHEST 1 V HISTORY: Dizziness COMPARISON: 05/01/2020 TECHNIQUE: Frontal view of the chest. FINDINGS: Low lung volumes. Elevation of the right hemidiaphragm which appears unchanged. No focal consolidations or pleural effusions. Bilateral shoulder arthroplasties. IMPRESSION: No acute disease. Low lung volumes. Electronically authenticated by: PANDA GURROLA Date: 2022-10-17 19:24 Normal [facility] XR HIPS NOHELIA 3_4V WO PELVISon 09-24-2022 XR HIPS NOHELIA 3_4V WO PELVIS EXAMINATION: XR HIPS NOHELIA 3_4V WO PELVIS HISTORY: Bilateral hip joint pain , chronic COMPARISON: No relevant comparison available. FINDINGS: RIGHT FINDINGS: BONES: No significant arthropathy or acute abnormality. SOFT TISSUES: No visible soft tissue swelling. OTHER: Negative. LEFT FINDINGS: BONES: No significant arthropathy or acute abnormality. SOFT TISSUES: No visible soft tissue swelling. OTHER: Negative. IMPRESSION: RIGHT CONCLUSION: No acute bone abnormality or significant degenerative joint disease. LEFT CONCLUSION: No acute bone abnormality or significant degenerative joint disease. Electronically authenticated by: REILLY MARIA Date: 2022-09-24 16:17 Normal [facility] NM STRESS/REST MULTIon 07-05 NM STRESS/REST MULTI Patient: DEONDRE LR Exam Date: 07/05/2022 : 1955 Gender:M Ordering : DR CYDNEY REDMOND M.D. Admission #: [id number] Family : DR MIKE YUAN M.D. Order #: [id number] CLICK HERE TO VIEW EXAM RADIOLOGY REPORT PROCEDURE: RADIONUCLIDE IMAGING STRESS/REST MULTI COMPARISON: NM STRESS/REST MULTI, 02/29/2016. INDICATIONS: Dyspnea on exertion, preprocedure cardiovascular exam TECHNIQUE: Exam Description: Stress/Rest one day protocol gated SPECT Rest Imagin.0 mCi Tc-99m Cardiolite IV on 07/05/2022 Stress Imaging 29.0 mCi Tc-99m Cardiolite IV on 07/05/2022 Exercise Protocol: 0.4 mg Lexiscan given IV Heart Rate (bpm): Rest: 78 Max: 88 PMHR: 57 Blood Pressure: Rest: 132/86 Max: 132/86 Symptoms: Rest and peak stress ECG findings were normal and the exercise portion of the study was normal per attending physician Dr. Tj Ragsdale . For more details please see separate cardiac stress test report. FINDINGS: QUALITY OF STUDY: Excellent. PERFUSION DEFECT: None. LOCATION: N/A SIZE: N/A. SEVERITY: N/A. TYPE: N/A. WALL MOTION: Normal. LV SIZE: Normal. 47 mL. TID / TCD: None; 0.8 LVEF: Normal. Calculated EF 75%. SUMMARY: Myocardial perfusion imaging study is NORMAL. CONCLUSION: 1. Normal nuclear medicine myocardial perfusion scan. Dictated by: Reilly Maria M.D. on 07/05/2022 at 15:02 Approved by: Reilly Maria M.D. on 07/05/2022 at 15:05 Normal [facility] Office Visiton 06-27-2022 Follow-up visit [id number] Deondre Lr Franci 1955 M Date Provider Department Center 06/27/2022 [facility]CYDNEY REDMOND [facility] No family history on file Level of Service:56166 DE OFFICE/OUTPATIENT ESTABLISHED MOD MDM 30-[address] [facility] Orders Onlyon 06-27-2022 Orders Only [id number] Deondre Lr 1955 M Date Provider Department Center 06/27/2022 AFSANEH BENNETT [facility] No family history on file Normal [facility] CBC AUTO DIFFon 06-22-2022 BASO # 0.1 103/ul Normal 0.0-0.1 [facility] Comment on above: Performed By: #### C MP, HSTROPN, TSH #### [facility] [address] [place] [address] Dr. Olga So Basophils/100 WBC (Bld) 0.6 % Normal 0.2-2.0 [facility] Comment on above: Performed By: #### C MP, HSTROPN, TSH #### [facility] [address] [place] [address] Dr. Olga So EO # 0.1 103/ul Normal 0.0-0.7 [facility] Comment on above: Performed By: #### C MP, HSTROPN, TSH #### [facility] [address] [address] [address] Olga So Eosinophils/100 WBC (Bld) 1.6 % Normal 0.9-7.0 [facility] Comment on above: Performed By: #### C MP, HSTROPN, TSH #### [facility] [address] [place] [address] Dr. Olga So Erythrocyte distribution width (RBC) [Ratio] 12.3 % Normal 11.0-15.0 [facility] Comment on above: Performed By: #### C MP, HSTROPN, TSH #### [facility] [address] [place] [address] Dr. Olga So Hematocrit (Bld) [Volume fraction] 33.2 % Critically low 42.0-54.0 [facility] Comment on above: Performed By: #### C MP, HSTROPN, TSH #### [facility] [address] [place] [address] Dr. Olga So Hemoglobin (Bld) [Mass/Vol] 11.9 g/dL Critically low 14.0-18.0 [facility] Comment on above: Performed By: #### C HYUN HSTROPN, TSH #### [facility] [address] [place] [address] Dr. Olga So IG # 0.03 10e3/ul Normal 0.00-0.03 [facility] Comment on above: Performed By: #### C HYUN HSTROPN, TSH #### [facility] [address] [place] [address] Dr. Olga So IG % 0.4 % Normal 0.0-0.5 [facility] Comment on above: Performed By: #### C HYUN HSTROPN, TSH #### [facility] [address] [place] [address] Dr. Olga So LYMPH # 2.1 103/ul Normal 1.2-3.8 [facility] Comment on above: Performed By: #### C HYUN HSTROPN, TSH #### [facility] [address] [place] [address] Dr. Olga So Lymphocytes/100 WBC (Bld) 26.4 % Normal 20.5-60.0 [facility] Comment on above: Performed By: #### C HYUN HSTROPN, TSH #### [facility] [address] [place] [address] Dr. Olga So MANUAL DIFF REQ NO Normal [facility] Comment on above: Performed By: #### C YHUN, HSTROPN, TSH #### [facility] [address] [place] [address] Dr. Ogla So MCH (RBC) [Entitic mass] 32.2 pg Normal 25.9-34.0 [facility] Comment on above: Performed By: #### C HYUN, HSTROPN, TSH #### [facility] [address] [place] [address] Dr. Olga So MCHC (RBC) [Mass/Vol] 35.8 g/dL Critically high 29.9-35.2 [facility] Comment on above: Performed By: #### C MP, HSTROPN, TSH #### [facility] [address] [place] [address] Dr. Olga So MCV (RBC) [Entitic vol] 90.0 fL Normal 80.0-94.0 [facility] Comment on above: Performed By: #### C MP, HSTROPN, TSH #### [facility] [address] [place] [address] Dr. Olga So MONO # 0.7 103/ul Normal 0.3-0.8 [facility] Comment on above: Performed By: #### C MP, HSTROPN, TSH #### [facility] [address] [place] [address] Dr. Olga So Monocytes/100 WBC (Bld) 8.0 % Normal 1.7-12.0 [facility] Comment on above: Performed By: #### C MP, HSTROPN, TSH #### [facility] [address] [place] [address] Dr. Olga So NEUT # 5.1 103/ul Normal 1.4-6.5 [facility] Comment on above: Performed By: #### C HYUN HSTROPN, TSH #### [facility] [address] [place] [address] Dr. Olga So Neutrophils/100 WBC (Bld) 63.0 % Normal 43.0-75.0 [facility] Comment on above: Performed By: #### C MP, HSTROPN, TSH #### [facility] [address] [place] [address] Dr. Olga So Platelet mean volume (Bld) [Entitic vol] 9.6 fL Normal 9.5-13.5 [facility] Comment on above: Performed By: #### C MP, HSTROPN, TSH #### [facility] [address] [place] [address] Dr. Olga So PLT 229 103/ul Normal 150-450 [facility] Comment on above: Performed By: #### C MP, HSTROPN, TSH #### [facility] [address] [address] [address] Olga So RBC 3.69 106/ul Critically low 4.70-6.10 [facility] Comment on above: Performed By: #### C LORRAINE PURVIS, TSH #### [facility] [address] [address] [address] Olga So WBC 8.1 103/ul Normal 4.0-11.0 [facility] Comment on above: Performed By: #### C LORRAINE PURVIS, TSH #### [facility] [address] [address] [address] Olga So GLYCOHEMOGLOBIN A1Con 2022 ADA RECOMMENDATION SEE BELOW Normal [facility] Comment on above: Result Comment: ADA RECOMMENDED LIMIT 4.0 - 6.0 ADA THERAPEUTIC TARGET < 7.0 ACTION SUGGESTED > 7.0 Performed By: #### A 1C ####[facility] [id number] [address]Dr. Olga So Glucose [Mass/Vol] 131 mg/dL Normal [facility] [place] Comment on above: Performed By: #### A 1C ####[facility] [address] [address]Dr. Olga So HbA1c (Bld) [Mass fraction] 6.2 % Normal 4.5-6.2 [facility] Comment on above: Performed By: #### A 1C ####[facility] [address] [address]Dr. Olga So MRSA NARES #1on 06-22-2022 MRSA NARES #1 Culture Observations: No growth of MRSA at 48 hours. Normal [facility] Comment on above: Performed By: #### M RSAN1 ####[facility] [address] [address]Dr. Olga So PROF 14(COMP METB)on 023 Albumin [Mass/Vol] 4.0 g/dL Normal 3.4-5.0 [facility] Comment on above: Performed By: #### P OCGLUC #### [facility] [address] [address] [address] Olga So Albumin/Globulin [Mass ratio] 1.0 {ratio} Normal [facility] Comment on above: Performed By: #### P OCGLUC #### [facility] [address] [place] [address] Dr. Olga So ALP [Catalytic activity/Vol] 166 U/L Critically high 46-116 [facility] Comment on above: Performed By: #### P OCGLUC #### [facility] [address] [address] [address] Olga So ALT [Catalytic activity/Vol] 24 U/L Normal 16-63 [facility] Comment on above: Performed By: #### P OCGLUC #### [facility] [address] [place] [address] Dr. Olga So Anion gap [Moles/Vol] 13.2 mmol/L Normal [facility] Comment on above: Performed By: #### P OCGLUC #### [facility] [address] [place] [address] Dr. Olga So AST [Catalytic activity/Vol] 17 U/L Normal 15-37 [facility] Comment on above: Performed By: #### P OCGLUC #### [facility] [address] [place] [address] Dr. Olga So Bilirubin [Mass/Vol] 0.3 mg/dL Normal 0.2-1.0 [facility] Comment on above: Performed By: #### P OCGLUC #### [facility] [address] [address] [address] Olga So Calcium [Mass/Vol] 9.0 mg/dL Normal 8.5-10.1 [facility] Comment on above: Performed By: #### P OCGLUC #### [facility] [address] [place] [address] Dr. Olga So Chloride [Moles/Vol] 102 mmol/L Normal 98-107 [facility] Comment on above: Performed By: #### P OCGLUC #### [facility] [address] [place] [address] Dr. Olga So CO2 [Moles/Vol] 29.0 mmol/L Normal 21.0-32.0 [facility] Comment on above: Performed By: #### P OCGLUC #### [facility] [address] [address] [address] Olga So Creatinine [Mass/Vol] 1.39 mg/dL Critically high 0.70-1.30 [facility] Comment on above: Performed By: #### P OCGLUC #### [facility] [address] [address] [address] Olga So EGFR-AF MALAYSIAN >60 Normal >=60 [facility] Comment on above: Performed By: #### P OCGLUC #### [facility] [address] [address] [address] Olga So EGFR-NON AF MALAYSIAN 51 mL/min/1.73m2 Critically low >=60 [facility] Comment on above: Performed By: #### P OCGLUC #### [facility] [address] [address] [address] Olga So Globulin (S) [Mass/Vol] 4.0 g/dL Normal [facility] Comment on above: Performed By: #### P OCGLUC #### [facility] [address] [place] [address] Dr. Olga So Glucose [Mass/Vol] 136 mg/dL Critically high 74-106 T [facility] Comment on above: Performed By: #### P OCGLUC #### [facility] [address] [address] [address] Olga So Potassium [Moles/Vol] 4.2 mmol/L Normal 3.5-5.1 [facility] Comment on above: Performed By: #### P OCGLUC #### [facility] [address] [address] [address] Olga So Protein [Mass/Vol] 8.0 g/dL Normal 6.4-8.2 [facility] Comment on above: Performed By: #### P OCGLUC #### [facility] [address] [address] [address] Olga So Sodium [Moles/Vol] 140 mmol/L Normal 136-145 [facility] Comment on above: Performed By: #### P OCGLUC #### [facility] [address] [address] [address] Olga So Urea nitrogen [Mass/Vol] 30.0 mg/dL Critically high 7.0-18.0 [facility] Comment on above: Performed By: #### P OCGLUC #### [facility] [address] [place] [address] Dr. Olga So Urea nitrogen/Creatinine [Mass ratio] 21.6 mg/mg Normal [facility] Comment on above: Performed By: #### P OCGLUC #### [facility] [address] [place] [address] Dr. Olga So POINT OF CARE GLUCOSEon 01-0 Glucose [Mass/Vol] 114 mg/dL Critically high 74-106 [facility] Comment on above: Performed By: #### P OCGLUC #### [facility] [address] [place] [address] SHOULDER LT WO CONon - CT SHOULDER LT WO CON EXAMINATION: CT SHOULDER LT WO CON HISTORY: Periprosthetic fracture ; fell 1 month ago with fracture adjacent prosthesis COMPARISON: No relevant comparison available. TECHNIQUE: Multi-planar CT images were created without IV contrast. Dose reduction techniques were achieved by using automated exposure control and/or adjustment of mA and/or kV according to patient size and/or use of iterative reconstruction technique. FINDINGS: BONES: Total left shoulder replacement. Fracture of the left humerus near the proximal diametaphyseal junction at the distal end of the stem of the humerus prosthetic component, with very slight lateral apex angulation. Prominent callus formation surrounds the fracture site. SOFT TISSUES: No appreciable hematoma. EFFUSION: None visible. OTHER: Negative. IMPRESSION: 1. Healing fracture of proximal humerus with prominent surrounding callus formation. Fracture occurs at distal end of the stem of the humerus prosthetic component. Electronically authenticated by: REILLY MARIA Date: 2022-04-23 19:53 Normal [facility] MRI SHOULDER RT WO CONon MRI SHOULDER RT WO CON EXAMINATION: MRI SHOULDER RT WO CON HISTORY: Impingement syndrome of right shoulder region ; chronic right shoulder pain increasing in severity COMPARISON: No relevant comparison available. TECHNIQUE: A variety of imaging planes and parameters were utilized for visualization of suspected pathology. Imaging was performed without contrast. FINDINGS: ROTATOR CUFF REGION CUFF TENDONS: Complete tear of the superior rotator cuff with approximately 4 cm retraction. CUFF MUSCLES: Normal appearing muscles. DELTOID: No significant atrophy or tear. LONG BICEPS TENDON: No abnormal signal, attrition, or tear. LABRUM/BICEPS ANCHOR SUPERIOR: No visible labral tear or biceps anchor pathology. ANTERIOR/INFERIOR: No visible tear or attrition. POSTERIOR: No posterior labrum abnormality. CAPSULE Normal. No visible capsular laxity or thickening. AC JOINT REGION AC JOINT: Moderate osteoarthropathy with mild-moderate narrowing of the underlying coracoacromial arch. AC LIGAMENTS: Normal acromioclavicular ligament. CC LIGAMENTS: Normal coracoclavicular ligaments. ACROMION: Normal horizontal (Type I) configuration. SUBACROMIAL BURSA: Small effusion. HYALINE CARTILAGE: Thinning of cartilage without focal defect. OTHER BONES: High riding humeral head contacting the undersurface of acromion process. No fracture or bone lesion. OTHER OBSERVATIONS: Large joint effusion. IMPRESSION: 1. Complete tear and retraction of the supraspinatus tendon allowing for high riding humeral head contacting undersurface of acromion process. 2. Moderate degenerative changes acromioclavicular joint. 3. Mild-moderate cartilage thinning of humeral head and glenoid. Electronically authenticated by: REILLY MARIA Date: 2022-04-23 20:10 Normal [facility] POINT OF CARE GLUCOSEon 01-26 Glucose [Mass/Vol] 129 mg/dL Critically high 74-106 T [facility] Comment on above: Performed By: #### P OCGLUC ####[facility] [address] [place], [place] [address]WhNickolas Espinoza Judah Covid-19 PCR (CVDTB)on 01-25 SARS-CoV-2 (COVID-19) RNA JULISSA+probe Ql (Unsp spec) Not detected Normal NOT DETECTED [facility] Comment on above: Result Comment: This test is not yet approved or cleared by the [place] FDA. When there are no FDA-approved or cleared tests available, and other criteria are met, FDA can make tests available under an emergency access mechanism called an Emergency Use Authorization (EUA). The EUA for this test is supported by the [place] of Health and Human Service's (HHS's) declaration that circumstances exist to justify the emergency use of in vitro diagnostics for the detection and/or diagnosis of the virus that causes COVID-19. This EUA will remain in effect (meaning this test can be used) for the duration of the COVID-19 declaration justifying emergency of IVDs, unless it is terminated or revoked by FDA (after which the test may no longer be used). When diagnostic testing is negative, the possibility of a false negative should be considered in the context of a patient's recent exposures and the presence of clinical signs and symptoms consistent with SARS-CoV-2. Performed By: #### P OCGLUC #### [facility] [address] [place] [address] Dr. Olga So XR RIBS LEFT INCLUDE CHEST ( MIN 3 VIEWS)on 12-06-2021 XR RIBS LEFT INCLUDE CHEST (MIN 3 VIEWS) EXAMINATION: XRAY VIEWS OF THE LEFT RIBS WITH FRONTAL XRAY VIEW OF THE CHEST 12/06/2021 2:13 pm COMPARISON: None. HISTORY: ORDERING SYSTEM PROVIDED HISTORY: pain TECHNOLOGIST PROVIDED HISTORY: pain FINDINGS: There is a minimally displaced fracture of the proximal left humerus at the location of the distal prosthesis. Lumbar spine a fusion hardware appears intact. Vertebroplasty changes in the lower thoracic spine. No rib fracture. No acute airspace infiltrate. No pneumothorax or pleural effusion. IMPRESSION: Minimally displaced fracture of the proximal left humerus Interpreted by: Bret Bae Signed by: Bret Bae 12/06/21 Final result Normal [facility] Minimally displaced fracture of the proximal left humerus [facility] EXAMINATION: XRAY VIEWS OF THE LEFT RIBS WITH FRONTAL XRAY VIEW OF THE CHEST 12/06/2021 2:13 pm COMPARISON: None. HISTORY: ORDERING SYSTEM PROVIDED HISTORY: pain TECHNOLOGIST PROVIDED HISTORY: pain FINDINGS: There is a minimally displaced fracture of the proximal left humerus at the location of the distal prosthesis. Lumbar spine a fusion hardware appears intact. Vertebroplasty changes in the lower thoracic spine. No rib fracture. No acute airspace infiltrate. No pneumothorax or pleural effusion. [facility] Bret Bae - 12/06/2021 EXAMINATION: XRAY VIEWS OF THE LEFT RIBS WITH FRONTAL XRAY VIEW OF THE CHEST 12/06/2021 2:13 pm COMPARISON: None. HISTORY: ORDERING SYSTEM PROVIDED HISTORY: pain TECHNOLOGIST PROVIDED HISTORY: pain FINDINGS: There is a minimally displaced fracture of the proximal left humerus at the location of the distal prosthesis. Lumbar spine a fusion hardware appears intact. Vertebroplasty changes in the lower thoracic spine. No rib fracture. No acute airspace infiltrate. No pneumothorax or pleural effusion. IMPRESSION: Minimally displaced fracture of the proximal left humerus [facility] [employer] Phone: [employer] Phone: Radiology Study observation (narrative) [employer] Phone: XR SHOULDER LEFT (MIN 2 VIEW S)on 12-06-2021 XR SHOULDER LEFT (MIN 2 VIEWS) EXAMINATION: XRAY VIEWS OF THE LEFT SHOULDER 12/06/2021 2:13 pm COMPARISON: None. HISTORY: ORDERING SYSTEM PROVIDED HISTORY: pain TECHNOLOGIST PROVIDED HISTORY: pain FINDINGS: The patient has undergone left shoulder arthroplasty. There is a minimally displaced fracture of the proximal humerus at the level of the distal portion of the humerus prosthesis. IMPRESSION: Minimally displaced fracture of the proximal humerus at the level of the distal portion of the humeral prosthesis. Interpreted by: Bret Bae Signed by: Bret Bae 12/06/21 Final result Normal [facility] Minimally displaced fracture of the proximal humerus at the level of the distal portion of the humeral prosthesis. [facility] EXAMINATION: XRAY VIEWS OF THE LEFT SHOULDER 12/06/2021 2:13 pm COMPARISON: None. HISTORY: ORDERING SYSTEM PROVIDED HISTORY: pain TECHNOLOGIST PROVIDED HISTORY: pain FINDINGS: The patient has undergone left shoulder arthroplasty. There is a minimally displaced fracture of the proximal humerus at the level of the distal portion of the humerus prosthesis. [facility] Bret Bae - 12/06/2021 EXAMINATION: XRAY VIEWS OF THE LEFT SHOULDER 12/06/2021 2:13 pm COMPARISON: None. HISTORY: ORDERING SYSTEM PROVIDED HISTORY: pain TECHNOLOGIST PROVIDED HISTORY: pain FINDINGS: The patient has undergone left shoulder arthroplasty. There is a minimally displaced fracture of the proximal humerus at the level of the distal portion of the humerus prosthesis. IMPRESSION: Minimally displaced fracture of the proximal humerus at the level of the distal portion of the humeral prosthesis. [employer] Work Phone: Radiology Study observation (narrative) [employer] Phone: XR SHOULDER LEFT (MIN 2 VIEW S)Ordered By: Bret Bae on 12-06-2021 [employer] Work Phone: POINT OF CARE GLUCOSEon 10-25 Glucose [Mass/Vol] 132 mg/dL Critically high 74-106 [facility] Comment on above: Performed By: #### P OCGLUC #### [facility] [address] [place] [address] Dr. Olga So Basic Metabolic Panelon 08-25 Anion gap [Moles/Vol] 12 mmol/L 9 - 17 mmol/L [facility] Calcium [Mass/Vol] 8.0 mg/dL Low 8.6 - 10. 4 mg/dL [facility] Chloride [Moles/Vol] 107 mmol/L 98 - 10 7 mmol/L [facility] CO2 [Moles/Vol] 22 mmol/L 20 - 31 mmol/L [facility] Creatinine [Mass/Vol] 1.16 mg/dL 0.70 - 1.20 mg/dL [facility] GFR >60 >60 mL/min [facility] GFR Non- >60 >60 mL/min [facility] Glucose [Mass/Vol] 171 mg/dL High 70 - 99 mg/dL [facility] Interpretation and review of laboratory results Abnormal [facility] Potassium [Moles/Vol] 4.0 mmol/L 3.7 - 5.3 mmol/L [facility] Sodium [Moles/Vol] 141 mmol/L 135 - 144 mmol/L [facility] Urea nitrogen (BldV) [Mass/Vol] 14 mg/dL 8 - 23 mg/dL [facility] Urea nitrogen/Creatinine (Bld) [Mass ratio] 12 [facility] Basic Metabolic Profon 09-06 (cont.) Normal [facility] Comment on above: Result Comment: Aver age GFR for 60-69 years old: 85 mL/min/1.73sq m Chronic Kidney Disease: <60 mL/min/1.73sq m Kidney failure: <15 mL/min/1.73sq m eGFR calculated using average adult body mass. Additional eGFR calculator available at: http://www.luxustravel.es/multiple_crcl_2012.htm Performed By: #### B HYUN, HH #### [facility] [address] [place], [place] [phone] Physical Aerodynamicist: Ramona Hurd MD Anion gap [Moles/Vol] 12 mmol/L Normal 9-17 [facility] Comment on above: Performed By: #### B HYUN, HH #### [facility] [address] [place], [place] [phone] Physical Aerodynamicist: Ramona Hurd MD BUN/CRE Ratio 12 Normal 9-20 [facility] Comment on above: Performed By: #### B HYUN, HH #### [address] [place], [place] [phone] Physical Aerodynamicist: Ramona Hurd MD Calcium [Mass/Vol] 8.0 mg/dL Low 8.6-10.4 [facility] Comment on above: Performed By: #### B HYUN, HH #### [facility] [address] [place] [address] Dr. [place], [place] [phone] Physical Aerodynamicist: Ramona Hurd MD Chloride [Moles/Vol] 107 mmol/L Normal 98-107 [facility] Comment on above: Performed By: #### B HYUN, HH #### [facility] [address] [place] [address] Dr. [place], [place] [phone] Physical Aerodynamicist: Ramona Hurd MD CO2 [Moles/Vol] 22 mmol/L Normal 20-31 [facility] Comment on above: Performed By: #### B HYUN, HH #### [facility] [address] [place] [address] Dr. [place], [place] [phone] Physical Aerodynamicist: Ramona Hurd MD Creatinine [Mass/Vol] 1.16 mg/dL Normal 0.70-1.20 [facility] Comment on above: Performed By: #### B HYUN, HH #### [facility] [address] [place], [place] [phone] Physical Aerodynamicist: Ramona Hurd MD GFR, Amer >60 Normal >60 [facility] Comment on above: Performed By: #### B MP, HH #### [facility] [address] [place], [place] [phone] Physical Aerodynamicist: Ramona Hurd MD GFR,non Amer >60 Normal >60 [facility] Comment on above: Performed By: #### B HYUN, HH #### [facility] [address] [place], [place] [phone] Physical Aerodynamicist: Ramona Hurd MD Glucose [Mass/Vol] 171 mg/dL High 70-99 [facility] Comment on above: Performed By: #### B HYUN, HH #### [facility] [address] [place], [place] [phone] Physical Aerodynamicist: Ramona Hurd MD Potassium [Moles/Vol] 4.0 mmol/L Normal 3.7-5.3 [facility] Comment on above: Performed By: #### B HYUN, HH #### [facility] [address] [place], [place] [phone] Physical Aerodynamicist: Ramona Hurd MD Sodium [Moles/Vol] 141 mmol/L Normal 135-144 [facility] Comment on above: Performed By: #### B HYUN, HH #### [facility] [address] [place], [place] [phone] Physical Aerodynamicist: Ramona Hurd MD Staging: Normal [facility] Comment on above: Result Comment: Stag e 1: Some kidney damage normal GFR Stage 2: Mild kidney damage GFR 60-89 Stage 3: Moderate kidney damage GFR 30-59 Stage 4: Severe kidney damage GFR 15-29 Stage 5: Severe kidney damage GFR <15 ESRD - chronic treatment by dialysis or transplant Performed By: #### B HYUN #### [facility] [address] [place] [address] Physical Aerodynamicist: Ramona Hurd MD Urea nitrogen [Mass/Vol] 14 mg/dL Normal 8-23 [facility] Comment on above: Performed By: #### B HYUN, #### [facility] [address] [place] [address] Physical Aerodynamicist: Ramona Hurd MD Glucose, Whole Bloodon 09-06 Glucose [Mass/Vol] 172 mg/dL High 74 - 100 mg/dL [facility] Interpretation and review of laboratory results Abnormal [facility] Glucose [Mass/Vol] 156 mg/dL High 74 - 100 mg/dL [facility] Interpretation and review of laboratory results Abnormal [facility] Hemoglobin and Hematocriton 09-06-2021 Hematocrit (Bld) [Volume fraction] 27.9 % Low 40.7 - 50.3 % [facility] Hemoglobin.gastrointes tinal spec 1 Ql (Stl) 8.9 g/dL Low 13.0 - 17.0 g/dL [facility] Interpretation and review of laboratory results Abnormal [facility] Hgb/Hcton 09-06-2021 Hematocrit (Bld) [Volume fraction] 27.9 % Low 40.7-50.3 [facility] Comment on above: Performed By: #### B HYUN, #### [facility] [address] [place] [address] [place] [address] Physical Aerodynamicist: Ramona Hurd MD Hemoglobin (Bld) [Mass/Vol] 8.9 g/dL Low 13.0-17.0 [facility] Comment on above: Performed By: #### B HYUN, #### [facility] [address] [place] [address] Physical Aerodynamicist: Ramona Hurd MD Laboratory - Chemistry and C hemistry - challengeon 09-06-2021 GFR/1.73 sq M.predicted MDRD (S/P/Bld) [Vol rate/Area] [facility] Comment on above: Average GFR for 60-6 9 years old: 85 mL/min/1.73sq m Chronic Kidney Disease: <60 mL/min/1.73sq m Kidney failure: <15 mL/min/1.73sq m eGFR calculated using average adult body mass. Additional eGFR calculator available at: http://www.luxustravel.es/multiple_crcl_2012.htm Stage 1: Some kidney damage normal GFR Stage 2: Mild kidney damage GFR 60-89 Stage 3: Moderate kidney damage GFR 30-59 Stage 4: Severe kidney damage GFR 15-29 Stage 5: Severe kidney damage GFR <15 ESRD - chronic treatment by dialysis or transplant VL DUP LOWER EXTREMITY VENOU S RIGHTon 09-06-2021 Tad Mack MD - 09/06/2021 [facility] Vascular Lower Extremities DVT Study Procedure Patient Name GERONIMO Koroma Date of Study 09/06/2021 Date of 1955 Gender Male Age 66 year(s) Race Room Number 0302 Corporate ID [id number] # Patient Acct [id number] # MR # [id number] [employer] Zunilda Morales RVT Interpreting Physician Tad Mack Referring Shmuel Wyatt, Referring Physician Nurse IRAIS-LAURA Practitioner Additional Comments Results were faxed to the floor 09/06/2021 @ 0900. Procedure Type of Study: Veins: Lower Extremities DVT Study, Venous Scan Lower Right. Indications for Study:Calf tenderness. Patient Status:In Patient. Technical Quality:Adequate visualization. Comments:Simultaneou s real time imaging utilizing B-Mode, color doppler and spectral waveform analysis was performed on the right lower extremity for venous examination of the deep and superficial systems. Conclusions Summary No evidence of superficial or deep venous thrombosis in the right lower extremity. Signature ---- ---- ---- ---- Findings: Right Impression: Common femoral, femoral, deep femoral, popliteal, tibials, peroneal, and saphenous veins were evaluated. All veins were compressible and with normal doppler responses. Velocities are measured in cm/s ; Diameters are measured in cm Right Lower Extremities DVT Study Measurements Right 2D Measurements + +-- --------+ ----+ + !Location !Visualized!Compress ibility!Thrombosis! + +-- --------+ ----+ + !Common Femoral !Yes !Yes !None ! + +-- --------+ ----+ + !Prox Femoral !Yes !Yes !None ! + +-- --------+ ----+ + !Mid Femoral !Yes !Yes !None ! + +-- --------+ ----+ + !Dist Femoral !Yes !Yes !None ! + +-- --------+ ----+ + !Deep Femoral !Yes !Yes !None ! + +-- --------+ ----+ + !Popliteal !Yes !Yes !None ! + +-- --------+ ----+ + !Sapheno Femoral Junction !Yes !Yes !None ! + +-- --------+ ----+ + !PTV !Yes !Yes !None ! + +-- --------+ ----+ + !Peroneal !Yes !Yes !None ! + +-- --------+ ----+ + !Gastroc !Yes !Yes !None ! + +-- --------+ ----+ + !GSV Thigh !Yes !Yes !None ! + +-- --------+ ----+ + !GSV Knee !Yes !Yes !None ! + +-- --------+ ----+ + !GSV Ankle !Yes !Yes !None ! + +-- --------+ ----+ + !SSV !Yes !Yes !None ! + +-- --------+ ----+ + Right Doppler Measurements + --------+------+---- --+ + !Location !Signal!Reflux!Reflu x (msec) ! + --------+------+---- --+ + !Common Femoral !Phasic! ! ! + --------+------+---- --+ + !Prox Femoral !Phasic! ! ! + --------+------+---- --+ + !Popliteal !Phasic! ! ! + --------+------+---- --+ + [facility] Phone: Radiology Study observation (narrative) [facility] Phone: VL DUP LOWER EXTREMITY VENOU S RIGHTOrdered By: Tad Mack on 09-06-2021 [facility] Phone: Glucose, Whole Bloodon 09-05 Glucose [Mass/Vol] 199 mg/dL High 74 - 100 mg/dL [facility] Interpretation and review of laboratory results Abnormal [facility] Glucose [Mass/Vol] 204 mg/dL High 74 - 100 mg/dL [facility] Interpretation and review of laboratory results Abnormal [facility] Glucose [Mass/Vol] 127 mg/dL High 74 - 100 mg/dL [facility] Interpretation and review of laboratory results Abnormal [facility] XR SHOULDER LEFT 1 VWon 08-25 XR SHOULDER LEFT 1 VW EXAMINATION: ONE XRAY VIEW OF THE LEFT SHOULDER 09/05/2021 11:27 am COMPARISON: None. HISTORY: ORDERING SYSTEM PROVIDED HISTORY: post-op TECHNOLOGIST PROVIDED HISTORY: Of operative side while in recovery room. post-op 66-year-old male who is postop in the recovery room FINDINGS: Recent reverse left shoulder arthroplasty hardware placement. Skin saul overlying the left shoulder. No significant periprosthetic lucency or acute osseous abnormality. Visualized left-sided ribs appear intact. Soft tissue gas about the left shoulder with soft tissue swelling. Left basilar airspace disease and small left-sided pleural effusion. IMPRESSION: 1. Postoperative changes related to recent reverse left shoulder arthroplasty hardware placement. 2. Left basilar airspace disease and small left-sided pleural effusion. Interpreted by: Luc Michele MD Signed by: Luc Michele MD 09/05/21 Final result Normal [facility] 1. Postoperative changes related to recent reverse left shoulder arthroplasty hardware placement. 2. Left basilar airspace disease and small left-sided pleural effusion. [facility] EXAMINATION: ONE XRAY VIEW OF THE LEFT SHOULDER 09/05/2021 11:27 am COMPARISON: None. HISTORY: ORDERING SYSTEM PROVIDED HISTORY: post-op TECHNOLOGIST PROVIDED HISTORY: Of operative side while in recovery room. post-op 66-year-old male who is postop in the recovery room FINDINGS: Recent reverse left shoulder arthroplasty hardware placement. Skin saul overlying the left shoulder. No significant periprosthetic lucency or acute osseous abnormality. Visualized left-sided ribs appear intact. Soft tissue gas about the left shoulder with soft tissue swelling. Left basilar airspace disease and small left-sided pleural effusion. [facility] Luc Michele MD - 09/05/2021 EXAMINATION: ONE XRAY VIEW OF THE LEFT SHOULDER 09/05/2021 11:27 am COMPARISON: None. HISTORY: ORDERING SYSTEM PROVIDED HISTORY: post-op TECHNOLOGIST PROVIDED HISTORY: Of operative side while in recovery room. post-op 66-year-old male who is postop in the recovery room FINDINGS: Recent reverse left shoulder arthroplasty hardware placement. Skin saul overlying the left shoulder. No significant periprosthetic lucency or acute osseous abnormality. Visualized left-sided ribs appear intact. Soft tissue gas about the left shoulder with soft tissue swelling. Left basilar airspace disease and small left-sided pleural effusion. IMPRESSION: 1. Postoperative changes related to recent reverse left shoulder arthroplasty hardware placement. 2. Left basilar airspace disease and small left-sided pleural effusion. [employer] Work Phone: Radiology Study observation (narrative) [facility] Phone: XR SHOULDER LEFT 1 VWOrdered By: Luc Michele on 09-05-2021 [facility] Phone: Glucose, Whole Bloodon 08-22 Glucose [Mass/Vol] 109 mg/dL High 74 - 100 mg/dL [facility] Interpretation and review of laboratory results Abnormal [facility] A1Con 08-03-2021 Glucose [Mass/Vol] 146 mg/dL Normal [facility] Comment on above: Result Comment: The ADA and AACC recommend providing the estimated average glucose result to permit better patient understanding of their HBA1c result. Performed By: #### G LYHGB #### [place] [place] [address] Physical Aerodynamicist: David Ge MD #### CDP, CP #### [facility] [address] [place] [address] Dr. [place], [place] [phone] Physical Aerodynamicist: Ramona Hurd MD HbA1c (Bld) [Mass fraction] 6.7 % High 4.0-6.0 [facility] Comment on above: Performed By: #### G LYHGB #### [address] [address] Physical Aerodynamicist: David Ge MD #### CDP, CP #### [address] [place], [place] [phone] Physical Aerodynamicist: Ramona Hurd MD MRSA, DNA, Nasalon MRSA, DNA, Nasal Negative Normal NEG [facility] Comment on above: Result Comment: NEGA TIVE: MRSA DNA not detected by nucleic acid amplification. Results should be used as an adjunct to nosocomial control efforts to identify patients needing enhanced precautions. The test is not intended to identify patients with staphylococcal infections. Results should not be used to guide or monitor treatment for MRSA infections. Performed By: #### M RSANO #### [facility] [address] [place] [id number] Physical Aerodynamicist: David Ge MD [facility] [address] [place] [address] [place]. [place], [place] [phone] Physical Aerodynamicist: Ramona Hurd MD CBC with Diffon 08-02-2021 Abs. Basophil 0.05 k/uL Normal 0.00-0.20 [facility] Comment on above: Performed By: #### G LYHGB #### [address] [address] Physical Aerodynamicist: David Ge MD #### CDP, CP #### [address] [place] [phone] Physical Aerodynamicist: Ramona Hurd MD Abs.Imm.Granulocyte 0.03 k/uL Normal 0.00-0.30 [facility] Comment on above: Performed By: #### G LYHGB #### [address] [phone] Physical Aerodynamicist: David Ge MD #### CDP, CP #### [address] [place] [address] Physical Aerodynamicist: Ramona Hurd MD Abs.Neutrophil (Seg) 4.11 k/uL Normal 1.50-8.10 [facility] Comment on above: Performed By: #### G LYHGB #### [place] [address] Physical Aerodynamicist: David Ge MD #### CDP, CP #### [address] [place] [phone] Physical Aerodynamicist: Ramona Hurd MD Basophils/100 WBC (Bld) 1 % Normal 0-2 [facility] Comment on above: Performed By: #### G LYHGB #### [place] [address] Physical Aerodynamicist: David Ge MD #### CDP, CP #### [address] [place] [address] Physical Aerodynamicist: Ramona Hurd MD Eosinophils (Bld) [#/Vol] 0.36 10*3/uL Normal 0.00-0.44 [facility] Comment on above: Performed By: #### G LYHGB #### [address] [address] Physical Aerodynamicist: David Ge MD #### CDP, CP #### [address] [place], [place] [phone] Physical Aerodynamicist: Ramona Hurd MD Eosinophils/100 WBC (Bld) 5 % High 1-4 [facility] Comment on above: Performed By: #### G LYHGB #### [address] [address] Physical Aerodynamicist: David Ge MD #### CDP, CP #### [address] [place], [place] [phone] Physical Aerodynamicist: Ramona Hurd MD Erythrocyte distribution width (RBC) [Ratio] 12.6 % Normal 11.8-14.4 [facility] Comment on above: Performed By: #### G LYHGB #### [address] [address] Physical Aerodynamicist: David Ge MD #### CDP, CP #### [address] [place], [place] [phone] Physical Aerodynamicist: Ramona Hurd MD Hematocrit (Bld) [Volume fraction] 37.7 % Low 40.7-50.3 [facility] Comment on above: Performed By: #### G LYHGB #### [address] [address] Physical Aerodynamicist: David Ge MD #### CDP, CP #### [address] [place], [place] [phone] Physical Aerodynamicist: Ramona Hurd MD Hemoglobin (Bld) [Mass/Vol] 12.3 g/dL Low 13.0-17.0 [facility] Comment on above: Performed By: #### G LYHGB #### [address] [address] Physical Aerodynamicist: David Ge MD #### CDP, CP #### [address] [place], [place] [phone] Physical Aerodynamicist: Ramona Hurd MD Immature granulocytes/100 WBC (Bld) 0 % Normal 0 [facility] Comment on above: Performed By: #### G LYHGB #### [address] [address] Physical Aerodynamicist: David Ge MD #### CDP, CP #### [address] [place] [phone] Physical Aerodynamicist: Ramona Hurd MD Lymphocytes (Bld) [#/Vol] 2.33 10*3/uL Normal 1.10-3.70 [facility] Comment on above: Performed By: #### G LYHGB #### [address] [address] Physical Aerodynamicist: David Ge MD #### CDP, CP #### [address] [place] [phone] Physical Aerodynamicist: Ramona Hurd MD Lymphocytes/100 WBC (Bld) 31 % Normal 24-43 [facility] Comment on above: Performed By: #### G LYHGB #### [address] [address] Physical Aerodynamicist: David Ge MD #### CDP, CP #### [address] [place] [phone] Physical Aerodynamicist: Ramona Hurd MD MCH (RBC) [Entitic mass] 32.5 pg Normal 25.2-33.5 [facility] Comment on above: Performed By: #### G LYHGB #### [address] [address] Physical Aerodynamicist: David Ge MD #### CDP, CP #### [address] [place], [place] 4393083 Physical Aerodynamicist: Ramona Hurd MD MCHC (RBC) [Mass/Vol] 32.6 g/dL Normal 28.4-34.8 [facility] Comment on above: Performed By: #### G LYHGB #### [address] [address] Physical Aerodynamicist: David Ge MD #### CDP, CP #### [address] [place] [phone] ( Physical Aerodynamicist: Ramona Hurd MD MCV (RBC) [Entitic vol] 99.5 fL Normal 82.6-102.9 [facility] Comment on above: Performed By: #### G LYHGB #### [place] [address] Physical Aerodynamicist: David Ge MD #### CDP, CP #### [address] [place] [address] Physical Aerodynamicist: Ramona Hurd MD Monocytes (Bld) [#/Vol] 0.67 10*3/uL Normal 0.10-1.20 [facility] Comment on above: Performed By: #### G LYHGB #### [place] [address] Physical Aerodynamicist: David Ge MD #### CDP, CP #### [address] [place] [phone] ( Physical Aerodynamicist: Ramona Hurd MD Monocytes/100 WBC (Bld) 9 % Normal 3-12 [facility] Comment on above: Performed By: #### G LYHGB #### [place] [address] Physical Aerodynamicist: David Ge MD #### CDP, CP #### [address] [place] [address] Physical Aerodynamicist: Ramona Hurd MD Neutrophil (Seg) 54 % Normal 36-65 [facility] Comment on above: Performed By: #### G LYHGB #### [facility] [address] [place] [address] Physical Aerodynamicist: David Ge MD #### CDP, CP #### [facility] [address] [place] [address] Dr. [place], [place] [phone] Physical Aerodynamicist: Ramona Hurd MD NRBC Automated 0.0 per 100 WBC Normal 0.0 [facility] Comment on above: Performed By: #### G LYHGB #### [address] [place] [address] Physical Aerodynamicist: David Ge MD #### CDP, CP #### [facility] [address] [place] [address] Dr. [place], [place] [phone] Physical Aerodynamicist: Ramona Hurd MD Platelet mean volume (Bld) [Entitic vol] 10.3 fL Normal 8.1-13.5 [facility] Comment on above: Performed By: #### G LYHGB #### [address] [address] Physical Aerodynamicist: David Ge MD #### CDP, CP #### [facility] [address] [place] [address] Dr. [place], [place] [phone] Physical Aerodynamicist: Ramona Hurd MD Platelets (Bld) [#/Vol] 220 10*3/uL Normal 138-453 [facility] Comment on above: Performed By: #### G LYHGB #### [address] [address] Physical Aerodynamicist: David Ge MD #### CDP, CP #### [address] [place], [place] [phone] Physical Aerodynamicist: Ramona Hurd MD RBC (Bld) [#/Vol] 3.79 10*6/uL Low 4.21-5.77 [facility] Comment on above: Performed By: #### G LYHGB #### [address] [place] [address] Physical Aerodynamicist: David Ge MD #### CDP, CP #### [address] [place], [place] [phone] Physical Aerodynamicist: Ramona Hurd MD WBC (Bld) [#/Vol] 7.6 10*3/uL Normal 3.5-11.3 [facility] Comment on above: Performed By: #### G LYHGB #### [address] [address] Physical Aerodynamicist: David Ge MD #### CDP, CP #### [address] [place] [address] Physical Aerodynamicist: Ramona Hurd MD Comp Metabolic Profon 2021 (cont.) [facility] Comment on above: Result Comment: Aver age GFR for 60-69 years old: 85 mL/min/1.73sq m Chronic Kidney Disease: <60 mL/min/1.73sq m Kidney failure: <15 mL/min/1.73sq m eGFR calculated using average adult body mass. Additional eGFR calculator available at: http://www.[employer]/multiple_crcl_2012.htm Performed By: #### G LYHGB #### [address] [address] Physical Aerodynamicist: David Ge MD #### CDP, CP #### [address] [place] [address] Physical Aerodynamicist: Ramona Hurd MD Albumin [Mass/Vol] 4.7 g/dL Normal 3.5-5.2 [facility] Comment on above: Performed By: #### G LYHGB #### [address] [address] Physical Aerodynamicist: David Ge MD #### CDP, CP #### [facility] [address] [place], [place] [phone] Physical Aerodynamicist: Ramona Hurd MD Albumin/Glob Ratio 1.6 Normal 1.0-2.5 [facility] Comment on above: Performed By: #### G LYHGB #### [address] [address] Physical Aerodynamicist: David Ge MD #### CDP, CP #### [address] [place], [place] [phone] Physical Aerodynamicist: Ramona Hurd MD Alkaline Phos 154 U/L High 40-129 [facility] Comment on above: Performed By: #### G LYHGB #### [address] [address] Physical Aerodynamicist: David Ge MD #### CDP, CP #### [address] [place], [place] [phone] Physical Aerodynamicist: Ramona Hurd MD ALT [Catalytic activity/Vol] 24 U/L Normal 5-41 [facility] Comment on above: Performed By: #### G LYHGB #### [address] [address] Physical Aerodynamicist: David Ge MD #### CDP, CP #### [address] [place] [phone] Physical Aerodynamicist: Ramona Hurd MD Anion gap [Moles/Vol] 12 mmol/L Normal 9-17 [facility] Comment on above: Performed By: #### G LYHGB #### [address] [address] Physical Aerodynamicist: David Ge MD #### CDP, CP #### [address] [place], [place] [phone] Physical Aerodynamicist: Ramona Hurd MD AST [Catalytic activity/Vol] 20 U/L Normal <40 [facility] Comment on above: Performed By: #### G LYHGB #### [address] [place] [address] Physical Aerodynamicist: David Ge MD #### CDP, CP #### [address] [place], [place] [id number] Physical Aerodynamicist: Ramona Hurd MD Bilirubin [Mass/Vol] 0.30 mg/dL Normal 0.3-1.2 [facility] Comment on above: Performed By: #### G LYHGB #### [address] [address] Physical Aerodynamicist: David Ge MD #### CDP, CP #### [address] [place] [id number] Physical Aerodynamicist: Ramona Hurd MD BUN/CRE Ratio 22 High 9-20 [facility] Comment on above: Performed By: #### G LYHGB #### [address] [address] Physical Aerodynamicist: David Ge MD #### CDP, CP #### [address] [place], [place] [id number] Physical Aerodynamicist: Ramona Hurd MD Calcium [Mass/Vol] 9.6 mg/dL Normal 8.6-10.4 [facility] Comment on above: Performed By: #### G LYHGB #### [address] [address] Physical Aerodynamicist: David Ge MD #### CDP, CP #### [address] [place], [place] [phone] Physical Aerodynamicist: Ramona Hurd MD Chloride [Moles/Vol] 103 mmol/L Normal 98-107 [facility] Comment on above: Performed By: #### G LYHGB #### [address] [address] Physical Aerodynamicist: David Ge MD #### CDP, CP #### [facility] [address] [place], [place] [phone] Physical Aerodynamicist: Ramona Hurd MD CO2 [Moles/Vol] 24 mmol/L Normal 20-31 [facility] Comment on above: Performed By: #### G LYHGB #### [address] [address] Physical Aerodynamicist: David Ge MD #### CDP, CP #### [facility] [address] [place] [address] Dr. [place], [place] [phone] Physical Aerodynamicist: Ramona Hurd MD Creatinine [Mass/Vol] 1.27 mg/dL High 0.70-1.20 [facility] Comment on above: Performed By: #### G LYHGB #### [address] [address] Physical Aerodynamicist: David Ge MD #### CDP, CP #### [facility] [address] [place] [address] Dr. [place], [place] [phone] Physical Aerodynamicist: Ramona Hurd MD GFR, Amer >60 Normal >60 [facility] Comment on above: Performed By: #### G LYHGB #### [address] [address] Physical Aerodynamicist: David Ge MD #### CDP, CP #### [facility] [address] [place] [address] [place] [phone] Physical Aerodynamicist: Ramona Hurd MD GFR,non Amer 57 mL/min Low >60 [facility] Comment on above: Performed By: #### G LYHGB #### [address] [address] Physical Aerodynamicist: David Ge MD #### CDP, CP #### [address] [place], [place] [phone] Physical Aerodynamicist: Ramona Hurd MD Glucose [Mass/Vol] 155 mg/dL High 70-99 [facility] Comment on above: Performed By: #### G LYHGB #### [address] [address] Physical Aerodynamicist: David Ge MD #### CDP, CP #### [address] [place] [address] Physical Aerodynamicist: Ramona Hurd MD Potassium [Moles/Vol] 4.9 mmol/L Normal 3.7-5.3 [facility] Comment on above: Performed By: #### G LYHGB #### [address] [address] Physical Aerodynamicist: David Ge MD #### CDP, CP #### [address] [place] [address] Physical Aerodynamicist: Ramona Hrud MD Protein [Mass/Vol] 7.6 g/dL Normal 6.4-8.3 [facility] Comment on above: Performed By: #### G LYHGB #### [address] [address] Physical Aerodynamicist: David Ge MD #### CDP, CP #### [address] [place] [address] Physical Aerodynamicist: Ramona Hurd MD Sodium [Moles/Vol] 139 mmol/L Normal 135-144 [facility] Comment on above: Performed By: #### G LYHGB #### [address] [address] Physical Aerodynamicist: David Ge MD #### CDP, CP #### [facility] [address] [place] [address] [place] [address] Physical Aerodynamicist: Ramona Hurd MD Staging: Normal [facility] Comment on above: Result Comment: Stag e 1: Some kidney damage normal GFR Stage 2: Mild kidney damage GFR 60-89 Stage 3: Moderate kidney damage GFR 30-59 Stage 4: Severe kidney damage GFR 15-29 Stage 5: Severe kidney damage GFR <15 ESRD - chronic treatment by dialysis or transplant Performed By: #### G LYHGB #### [address] [id number] Physical Aerodynamicist: David Ge MD #### CDP, CP #### [address] [place] [address] Physical Aerodynamicist: Ramona Hurd MD Urea nitrogen [Mass/Vol] 28 mg/dL High 8-23 [facility] Comment on above: Performed By: #### G LYHGB #### [place] [address]6592 [place] [address] Physical Aerodynamicist: David Ge MD #### CDP, CP #### [address] [place] [address] Physical Aerodynamicist: Ramona Hurd MD MRSA, DNA, Nasalon Specimen Description .NASAL SWAB Normal [facility] Comment on above: Performed By: #### M RSANO #### [address] [address] Physical Aerodynamicist: David Ge MD [facility] [address] [place] [address] [place] [address] Physical Aerodynamicist: Ramona Hurd MD XR CHEST (2 VW)on 08-02-2021 XR CHEST (2 VW) EXAMINATION: TWO XRAY VIEWS OF THE CHEST 08/02/2021 1:05 pm COMPARISON: None. HISTORY: ORDERING SYSTEM PROVIDED HISTORY: pre-op TECHNOLOGIST PROVIDED HISTORY: pre-op FINDINGS: No acute airspace infiltrate. No pneumothorax or pleural effusion. The cardiomediastinal silhouette is within normal limits. Vertebroplasty changes in the thoracic spine. IMPRESSION: No acute cardiopulmonary findings. Interpreted by: Bret Bae Signed by: Bret Bae 08/02/21 Final result Normal [facility] No acute cardiopulmonary findings. [facility] EXAMINATION: TWO XRAY VIEWS OF THE CHEST 08/02/2021 1:05 pm COMPARISON: None. HISTORY: ORDERING SYSTEM PROVIDED HISTORY: pre-op TECHNOLOGIST PROVIDED HISTORY: pre-op FINDINGS: No acute airspace infiltrate. No pneumothorax or pleural effusion. The cardiomediastinal silhouette is within normal limits. Vertebroplasty changes in the thoracic spine. [facility] Bret Bae - 08/02/2021 EXAMINATION: TWO XRAY VIEWS OF THE CHEST 08/02/2021 1:05 pm COMPARISON: None. HISTORY: ORDERING SYSTEM PROVIDED HISTORY: pre-op TECHNOLOGIST PROVIDED HISTORY: pre-op FINDINGS: No acute airspace infiltrate. No pneumothorax or pleural effusion. The cardiomediastinal silhouette is within normal limits. Vertebroplasty changes in the thoracic spine. IMPRESSION: No acute cardiopulmonary findings. [facility] Phone: Radiology Study observation (narrative) [facility] Phone: XR CHEST (2 VW)Ordered By: Marvin Bae on 08-02-2021 [facility] Phone: CBCOrdered By: Adjmegi Born on 12-08-2020 Hematocrit (Bld) [Volume fraction] 27.4 % Low 42.0 - 52.0 % [facility] Phone: Hemoglobin.gastrointes tinal spec 1 Ql (Stl) 9.1 g/dL Low 14.0 - 18.0 g/dL [facility] Phone: Interpretation and review of laboratory results Abnormal [facility] Phone: MCH (RBC) [Entitic mass] 32.7 pg High 27.0 - 31.3 pg [facility] Phone: MCHC (RBC) [Mass/Vol] 33.2 % 33.0 - 37.0 % [facility] Phone: MCV (RBC) [Entitic vol] 98.3 fL 80.0 - 100.0 fL [facility] Phone: Platelet distribution width (Bld) [Ratio] 13.2 % 11.5 - 14.5 % [facility] Phone: Platelets (Bld) [#/Vol] 173 10*3/uL 130 - 400 K/uL [facility] Phone: RBC (Bld) [#/Vol] 2.78 10*6/uL Low [facility] Phone: WBC (Bld) [#/Vol] 12.7 10*3/uL High 4.8 - 10.8 K/uL [facility] Phone: CBC With Platelet No Differe ntialon 12-08-2020 Erythrocyte distribution width (RBC) [Ratio] 13.2 % Normal 11.5-14.5 [facility] Comment on above: Performed By: #### P GLU #### [facility] [address] [place] [address] Hematocrit (Bld) [Volume fraction] 27.4 % Low 42.0-52.0 [facility] Comment on above: Performed By: #### P GLU #### [facility] [address] [place] [address] Hemoglobin (Bld) [Mass/Vol] 9.1 g/dL Low 14.0-18.0 [facility] Comment on above: Performed By: #### P GLU #### [facility] [address] [place] [address] MCH (RBC) [Entitic mass] 32.7 pg Critically high 27.0-31.3 [facility] Comment on above: Performed By: #### P GLU #### [facility] [address] [place] [address] MCHC 33.2 % Normal 33.0-37.0 [facility] Comment on above: Performed By: #### P GLU #### [facility] [address] [place] [address] MCV (RBC) [Entitic vol] 98.3 fL Normal 80.0-100.0 [facility] Comment on above: Performed By: #### P GLU #### [facility] [address] [place] [address] Platelets (Bld) [#/Vol] 173 10*3/uL Normal 130-400 [facility] Comment on above: Performed By: #### P GLU #### [facility] [address] [place] [address] RBC (Bld) [#/Vol] 2.78 10*6/uL Low 4.70-6.10 [facility] Comment on above: Performed By: #### P GLU #### [facility] [address] [place] [address] WBC (Bld) [#/Vol] 12.7 10*3/uL Critically high 4.8-10.8 [facility] Comment on above: Performed By: #### P GLU #### [facility] [address] [place] [address] No Panel InformationOrdered By: Hernandez Tovar on 12-08-2020 [facility] Work Phone: POCT Glucoseon 12-08-2020 Glucose [Mass/Vol] 145 mg/dL Critically high 60-115 M [facility] Comment on above: Performed By: #### P GLU #### [facility] [address] [place] [address] POC Performed on ACCU-CHEK Normal [facility] Comment on above: Result Comment: Trev galdamez RN or Performed By: #### P GLU #### [facility] [address] [place] [address] Glucose [Mass/Vol] 119 mg/dL Critically high 60-115 M [facility] Comment on above: Performed By: #### P GLU #### [facility] [address] [place] [address] POC Performed on ACCU-CHEK Normal [facility] Comment on above: Result Comment: Noti fied RN or MD Performed By: #### P GLU #### [facility] [address] [place] [address] Glucose [Mass/Vol] 150 mg/dL Critically high 60-115 M [facility] Comment on above: Performed By: #### P GLU #### [facility] [address] [place] [address] POC Performed on ACCU-CHEK Normal [facility] Comment on above: Performed By: #### P GLU #### [facility] [address] [place] [address] POCT GlucoseOrdered By: Unkn own Result on 12-08-2020 Glucose [Mass/Vol] 145 mg/dL High 60 - 115 mg/dl [facility] Phone: Interpretation and review of laboratory results Abnormal [facility] Phone: Performed on ACCU-CHEK [facility] Phone: Comment on above: Notified RN or [facility] Phone: Glucose [Mass/Vol] 119 mg/dL High 60 - 115 mg/dl [facility] Phone: Interpretation and review of laboratory results Abnormal [facility] Phone: Performed on ACCU-CHEK [facility] Phone: Comment on above: Notified RN or [facility] Phone: Glucose [Mass/Vol] 150 mg/dL High 60 - 115 mg/dl [facility] Phone: Interpretation and review of laboratory results Abnormal [facility] Phone: Performed on ACCU-CHEK [facility] Phone: [facility] Phone: Surgical PathologyOrdered By : Hernandez Tovar on 12-08-2020 [facility] [address] [place], [place] [phone] FINAL SURGICAL PATHOLOGY REPORT Patient Name: DEONDRE LR Accession No: [id number] Age Sex: 1955 Location: [place] [id number] Account No: [id number] Collected: 12/06/2020 [facility] Rec No: [id number] Received: 12/06/2020 Attend Phys: HERNANDEZ TOVAR Completed: 12/08/2020 Perform Phys: HERNANDEZ TOVAR FINAL DIAGNOSIS: DISC: DEGENERATING INTERVERTEBRAL DISC MATERIAL. PSW/PSW CLINICAL INFORMATION: L3-4, L4-5 posterior lumbar interbody fusion. Preop diagnosis: Radiculopathy, pseudoarthrosis, spondylosis, facet arthropathy. SPECIMEN: Disc GROSS DESCRIPTION: Received is one container labeled with the patient's name and designated spine . The specimen consists of portions of pink rubbery tissue and bone, 2.6 x 2 x 0.4 cm in aggregate. The specimen is submitted in toto in two cassettes following decalcification. NORA CPT: 85670 X1 81983 X1 MAIA DUGAN M.D. 12/08/2020 Electronically signed out by Page 1 of 1 [facility] Phone: Basic Metabolic Panel Reflex Mgon 12-07-2020 Anion gap [Moles/Vol] 11 mmol/L Normal 9-15 [facility] Comment on above: Performed By: #### B MPX #### [facility] [address] [place] [address] Calcium [Mass/Vol] 8.6 mg/dL Normal 8.5-9.9 [facility] Comment on above: Performed By: #### B MPX #### [facility] [address] [place] [address] Chloride [Moles/Vol] 102 mmol/L Normal 95-107 [facility] Comment on above: Performed By: #### B MPX #### [facility] [address] [place] [address] CO2 [Moles/Vol] 25 mmol/L Normal 20-31 [facility] Comment on above: Performed By: #### B MPX #### [facility] [address] [place] [address] Creatinine [Mass/Vol] 1.15 mg/dL Normal 0.70-1.20 [facility] Comment on above: Performed By: #### B MPX #### [facility] [address] [place] [address] GFR >60.0 Normal >60 [facility] Comment on above: Result Comment: >60 mL/min/1.73m2 EGFR, calc. for ages 18 and older using the MDRD formula (not corrected for weight), is valid for stable renal function. Performed By: #### B MPX #### [facility] [address] [place] [address] GFR/1.73 sq M.predicted among blacks MDRD (S/P/Bld) [Vol rate/Area] mL/min/{1.73_m2} Normal >60 [facility] Comment on above: Result Comment: >60 mL/min/1.73m2 EGFR, calc. for ages 18 and older using the MDRD formula (not corrected for weight), is valid for stable renal function. Performed By: #### B MPX #### [facility] [address] [place] [address] Glucose [Mass/Vol] 160 mg/dL Critically high 70-99 M [facility] Comment on above: Performed By: #### B MPX #### [facility] [address] [place] [address] Magnesium [Moles/Vol] 4.8 mmol/L Normal 3.4-4.9 [facility] Comment on above: Performed By: #### B MPX #### [facility] [address] [place] [address] Sodium [Moles/Vol] 138 mmol/L Normal 135-144 [facility] Comment on above: Performed By: #### B MPX #### [facility] [address] [place] [address] Urea nitrogen [Mass/Vol] 18 mg/dL Normal 8-23 [facility] Comment on above: Performed By: #### B MPX #### [facility] [address] [place] [address] Basic Metabolic Panel w/ Ref rock to MGOrdered By: Hernandez Tovar on 12-07-2020 Anion gap [Moles/Vol] 11 mmol/L [facility] [employer] Work Phone: Calcium [Mass/Vol] 8.6 mg/dL 8.5 - 9.9 mg/dL [facility] Work Phone: Chloride [Moles/Vol] 102 mmol/L [facility] Work Phone: CO2 [Moles/Vol] 25 mmol/L [facility] Work Phone: Creatinine [Mass/Vol] 1.15 mg/dL 0.70 - 1.20 mg/dL [facility] Phone: GFR >60.0 >60 [facility] Work Phone: Comment on above: >60 mL/min/1.73m2 EG FR, calc. for ages 18 and older using the MDRD formula (not corrected for weight), is valid for stable renal function. GFR Non- >60.0 >60 [facility] Phone: Comment on above: >60 mL/min/1.73m2 EG FR, calc. for ages 18 and older using the MDRD formula (not corrected for weight), is valid for stable renal function. Glucose [Mass/Vol] 160 mg/dL High 70 - 99 mg/dL [facility] Phone: Interpretation and review of laboratory results Abnormal [facility] Phone: Potassium reflex Magnesium 4.8 [facility] Phone: Sodium [Moles/Vol] 138 mmol/L [facility] Phone: Urea nitrogen (BldV) [Mass/Vol] 18 mg/dL 8 - 23 mg/dL [facility] Phone: [facility] Phone: CBC With Platelet and Differ entialon 12-07-2020 Basophils (Bld) [#/Vol] 0.0 10*3/uL Normal 0.0-0.2 [facility] Comment on above: Performed By: #### C BCWD #### [facility] [address] [place] [address] Basophils/100 WBC (Bld) 0.1 % Normal [facility] Comment on above: Performed By: #### C BCWD #### [facility] [address] [place] [address] Eosinophils (Bld) [#/Vol] 0.0 10*3/uL Normal 0.0-0.7 [facility] Comment on above: Performed By: #### C BCWD #### [facility] [address] [place] [address] Eosinophils/100 WBC (Bld) 0.0 % Normal [facility] Comment on above: Performed By: #### C BCWD #### [facility] [address] [place] [address] Erythrocyte distribution width (RBC) [Ratio] 12.9 % Normal 11.5-14.5 [facility] Comment on above: Performed By: #### C BCWD #### [facility] [address] [place] [address] Hematocrit (Bld) [Volume fraction] 27.8 % Low 42.0-52.0 [facility] Comment on above: Performed By: #### C BCWD #### [facility] [address] [place] [address] Hemoglobin (Bld) [Mass/Vol] 9.3 g/dL Low 14.0-18.0 [facility] Comment on above: Performed By: #### C BCWD #### [facility] [address] [place] [address] Lymphocytes (Bld) [#/Vol] 1.1 10*3/uL Normal 1.0-4.8 [facility] Comment on above: Performed By: #### C BCWD #### [facility] [address] [place] [address] Lymphocytes/100 WBC (Bld) 7.7 % Normal [facility] Comment on above: Performed By: #### C BCWD #### [facility] [address] [place] [address] MCH (RBC) [Entitic mass] 32.6 pg Critically high 27.0-31.3 [facility] Comment on above: Performed By: #### C BCWD #### [facility] [address] [place] [address] MCHC 33.3 % Normal 33.0-37.0 [facility] Comment on above: Performed By: #### C BCWD #### [facility] [address] [place] [address] MCV (RBC) [Entitic vol] 97.8 fL Normal 80.0-100.0 [facility] Comment on above: Performed By: #### C BCWD #### [facility] [address] [place] [address] Monocytes (Bld) [#/Vol] 1.5 10*3/uL Critically high 0.2-0.8 [facility] Comment on above: Performed By: #### C BCWD #### [facility] [address] [place] [address] Monocytes/100 WBC (Bld) 10.1 % Normal [facility] Comment on above: Performed By: #### C BCWD #### [facility] [address] [place] [address] Neutrophils (Bld) [#/Vol] 11.8 10*3/uL Critically high 1.4-6.5 [facility] Comment on above: Performed By: #### C BCWD #### [facility] [address] [place] [address] Neutrophils/100 WBC (Bld) 82.1 % Normal [facility] Comment on above: Performed By: #### C BCWD #### [facility] [address] [place] [address] Platelets (Bld) [#/Vol] 183 10*3/uL Normal 130-400 [facility] Comment on above: Performed By: #### C BCWD #### [facility] [address] [place] [address] RBC (Bld) [#/Vol] 2.84 10*6/uL Low 4.70-6.10 [facility] Comment on above: Performed By: #### C BCWD #### [facility] [address] [place] [address] WBC (Bld) [#/Vol] 14.3 10*3/uL Critically high 4.8-10.8 [facility] Comment on above: Performed By: #### C BCWD #### [facility] [address] [place] [address] CBC auto differentialOrdered By: Hernandez Tovar on 12-07-2020 Basophils (Bld) [#/Vol] 0.0 10*3/uL 0.0 - 0.2 K/uL [facility] Work Phone: Basophils/100 WBC (Bld) 0.1 % [facility] Work Phone: Eosinophils (Bld) [#/Vol] 0.0 10*3/uL 0.0 - 0.7 K/uL [facility] Work Phone: Eosinophils/100 WBC (Bld) 0 % [facility] Phone: Hematocrit (Bld) [Volume fraction] 27.8 % Low 42.0 - 52.0 % [facility] Phone: Hemoglobin.gastrointes tinal spec 1 Ql (Stl) 9.3 g/dL Low 14.0 - 18.0 g/dL [facility] Phone: Interpretation and review of laboratory results Abnormal [facility] Phone: Lymphocytes (Bld) [#/Vol] 1.1 10*3/uL 1.0 - 4.8 K/uL [facility] Phone: Lymphocytes/100 WBC (Bld) 7.7 % [facility] Phone: MCH (RBC) [Entitic mass] 32.6 pg High 27.0 - 31.3 pg [facility] Phone: MCHC (RBC) [Mass/Vol] 33.3 % 33.0 - 37.0 % [facility] Phone: MCV (RBC) [Entitic vol] 97.8 fL 80.0 - 100.0 fL [facility] Phone: Monocytes (Bld) [#/Vol] 1.5 10*3/uL High 0.2 - 0.8 K/uL [facility] Phone: Monocytes/100 WBC (Bld) 10.1 % [facility] Phone: Neutrophils Absolute 11.8 K/uL High 1.4 - 6 .5 K/uL [facility] Phone: Neutrophils/100 WBC (Bld) 82.1 % [facility] Phone: Platelet distribution width (Bld) [Ratio] 12.9 % 11.5 - 14.5 % [facility] Phone: Platelets (Bld) [#/Vol] 183 10*3/uL 130 - 400 K/uL [facility] Phone: RBC (Bld) [#/Vol] 2.84 10*6/uL Low [facility] Phone: WBC (Bld) [#/Vol] 14.3 10*3/uL High 4.8 - 10.8 K/uL [facility] Phone: [facility] Phone: FLUORO FOR SURGICAL PROCEDUR ESOrdered By: Hernandez Tovar on 12-07-2020 [place], Chpo Incoming Radiant Results From BMP [employer] - 12/07/2020 1:12 PM EDT FLUORO FOR SURGICAL PROCEDURES : 12/06/2020 10:30 AM CLINICAL HISTORY: R52 Pain ICD10. COMPARISON: None available. Intraoperative fluoroscopy was provided for Dr. Tovar procedure. A total of 71.7 seconds of fluoroscopy was used, with 4 fluoroscopic stills saved. No diagnostic images were obtained. Please see Dr. Tovar surgical notes for completeness. [facility] Phone: [facility] Phone: POCT Glucoseon 12-07-2020 Glucose [Mass/Vol] 143 mg/dL Critically high 60-115 M [facility] Comment on above: Performed By: #### P GLU #### [facility] [address] [place] [address] POC Performed on ACCU-CHEK Normal [facility] Comment on above: Performed By: #### P GLU #### [facility] [address] [place] [address] Glucose [Mass/Vol] 152 mg/dL Critically high 60-115 M [facility] Comment on above: Performed By: #### P GLU #### [facility] [address] [place] [address] POC Performed on ACCU-CHEK Normal [facility] Comment on above: Performed By: #### P GLU #### [facility] [address] [place] [address] Glucose [Mass/Vol] 272 mg/dL Critically high 60-115 M [facility] Comment on above: Performed By: #### P GLU #### [facility] [address] [place] [address] POC Performed on ACCU-CHEK Normal [facility] Comment on above: Performed By: #### P GLU #### [facility] [address] [place] [address] Glucose [Mass/Vol] 178 mg/dL Critically high 60-115 M [facility] Comment on above: Performed By: #### P GLU #### [facility] [address] [place] [address] POC Performed on ACCU-CHEK Normal [facility] Comment on above: Performed By: #### P GLU #### [facility] [address] [place] [address] POCT GlucoseOrdered By: Unkn own Result on 12-07-2020 Glucose [Mass/Vol] 143 mg/dL High 60 - 115 mg/dl [facility] Phone: Interpretation and review of laboratory results Abnormal [facility] Phone: Performed on ACCU-CHEK [facility] Phone: [facility] Phone: Glucose [Mass/Vol] 152 mg/dL High 60 - 115 mg/dl [facility] Phone: Interpretation and review of laboratory results Abnormal [facility] Phone: Performed on ACCU-CHEK [facility] Phone: [facility] Phone: Glucose [Mass/Vol] 272 mg/dL High 60 - 115 mg/dl [facility] Phone: Interpretation and review of laboratory results Abnormal [facility] Phone: Performed on ACCU-CHEK [facility] Work Phone: [facility] Phone: Glucose [Mass/Vol] 178 mg/dL High 60 - 115 mg/dl [facility] Phone: Interpretation and review of laboratory results Abnormal [facility] Phone: Performed on ACCU-CHEK [facility] Work Phone: [facility] Phone: XR LUMBAR SPINE (2-3 VIEWS)o n 12-07-2020 XR LUMBAR SPINE (2-3 VIEWS) TECHNIQUE: AP AND LATERAL VIEWS OF THE LUMBOSACRAL SPINE HISTORY: Postop COMPARISON: Lumbar spine radiograph 06/05/2019 RESULT: Counting reference: Lumbosacral junction. For the purposes of this report, L5S1 is considered the last lumbar type disc space and L4-5 is considered the level of the iliac crest. No interval postoperative changes of L3-L4 posterior fusion and laminectomy and stable prior postoperative changes of L4-S1 lumbar fusion and laminectomy with pedicle screws and interconnecting rods. Hardware remains intact. New intervertebral body spacer at L4-L5 and unchanged at L5-S1. Multiple surgical saul overlie the posterior lower back, with adjacent soft tissue swelling. Multiple surgical clips overlie the left lower quadrant and pelvis. Prominent bowel gas loops, likely secondary to postoperative ileus. No significant subcutaneous gas. Lumbar lordosis is maintained. Vertebral body heights and disc spaces are maintained. No fracture or subluxation. Mild degenerative changes of the imaged femoral joints. SI joints are unremarkable. IMPRESSION: Interval postoperative changes of L3-L4 posterior laminectomy and stable L4-S1 posterior fusion, with intact hardware. Interpreted by: Liban Solis MD Signed by: Liban Solis MD 12/07/20 Final result Normal [facility] XR LUMBAR SPINE (2-3 VIEWS)O rdered By: Hernandez Tovar on 12-07-2020 Interval postoperative changes of L3-L4 posterior laminectomy and stable L4-S1 posterior fusion, with intact hardware. [facility] Phone: TECHNIQUE: AP AND LATERAL VIEWS OF THE LUMBOSACRAL SPINE HISTORY: Postop COMPARISON: Lumbar spine radiograph 06/05/2019 RESULT: Counting reference: Lumbosacral junction. For the purposes of this report, L5S1 is considered the last lumbar type disc space and L4-5 is considered the level of the iliac crest. No interval postoperative changes of L3-L4 posterior fusion and laminectomy and stable prior postoperative changes of L4-S1 lumbar fusion and laminectomy with pedicle screws and interconnecting rods. Hardware remains intact. New intervertebral body spacer at L4-L5 and unchanged at L5-S1. Multiple surgical saul overlie the posterior lower back, with adjacent soft tissue swelling. Multiple surgical clips overlie the left lower quadrant and pelvis. Prominent bowel gas loops, likely secondary to postoperative ileus. No significant subcutaneous gas. Lumbar lordosis is maintained. Vertebral body heights and disc spaces are maintained. No fracture or subluxation. Mild degenerative changes of the imaged femoral joints. SI joints are unremarkable. [facility] Phone: [facility] Incoming Radiant Results From [employer] - 12/07/2020 11:21 AM EDT TECHNIQUE: AP AND LATERAL VIEWS OF THE LUMBOSACRAL SPINE HISTORY: Postop COMPARISON: Lumbar spine radiograph 06/05/2019 RESULT: Counting reference: Lumbosacral junction. For the purposes of this report, L5S1 is considered the last lumbar type disc space and L4-5 is considered the level of the iliac crest. No interval postoperative changes of L3-L4 posterior fusion and laminectomy and stable prior postoperative changes of L4-S1 lumbar fusion and laminectomy with pedicle screws and interconnecting rods. Hardware remains intact. New intervertebral body spacer at L4-L5 and unchanged at L5-S1. Multiple surgical saul overlie the posterior lower back, with adjacent soft tissue swelling. Multiple surgical clips overlie the left lower quadrant and pelvis. Prominent bowel gas loops, likely secondary to postoperative ileus. No significant subcutaneous gas. Lumbar lordosis is maintained. Vertebral body heights and disc spaces are maintained. No fracture or subluxation. Mild degenerative changes of the imaged femoral joints. SI joints are unremarkable. IMPRESSION: Interval postoperative changes of L3-L4 posterior laminectomy and stable L4-S1 posterior fusion, with intact hardware. [employer] Work Phone: [facility] [employer] Work Phone: Basic Metabolic Panel Reflex Mgon 12-06-2020 Anion gap [Moles/Vol] 10 mmol/L Normal 9-15 [facility] Comment on above: Performed By: #### B MPX #### [facility] [address] [place] [address] Calcium [Mass/Vol] 8.2 mg/dL Low 8.5-9.9 [facility] Comment on above: Performed By: #### B MPX #### [facility] [address] [place] [address] Chloride [Moles/Vol] 102 mmol/L Normal 95-107 [facility] Comment on above: Performed By: #### B MPX #### [facility] [address] [place] [address] CO2 [Moles/Vol] 25 mmol/L Normal 20-31 [facility] Comment on above: Performed By: #### B MPX #### [facility] [address] [place] [address] Creatinine [Mass/Vol] 1.18 mg/dL Normal 0.70-1.20 [facility] Comment on above: Performed By: #### B MPX #### [facility] [address] [place] [address] GFR >60.0 Normal >60 [facility] Comment on above: Result Comment: >60 mL/min/1.73m2 EGFR, calc. for ages 18 and older using the MDRD formula (not corrected for weight), is valid for stable renal function. Performed By: #### B MPX #### [facility] [address] [place] [address] GFR/1.73 sq M.predicted among blacks MDRD (S/P/Bld) [Vol rate/Area] mL/min/{1.73_m2} Normal >60 [facility] Comment on above: Result Comment: >60 mL/min/1.73m2 EGFR, calc. for ages 18 and older using the MDRD formula (not corrected for weight), is valid for stable renal function. Performed By: #### B MPX #### [facility] [address] [place] [address] Glucose [Mass/Vol] 197 mg/dL Critically high 70-99 M [facility] Comment on above: Performed By: #### B MPX #### [facility] [address] [place] [address] Magnesium [Moles/Vol] 4.1 mmol/L Normal 3.4-4.9 [facility] Comment on above: Performed By: #### B MPX #### [facility] [address] [place] [address] Sodium [Moles/Vol] 137 mmol/L Normal 135-144 [facility] Comment on above: Performed By: #### B MPX #### [facility] [address] [place] [address] Urea nitrogen [Mass/Vol] 19 mg/dL Normal 8-23 [facility] Comment on above: Performed By: #### B MPX #### [facility] [address] [place] [address] Basic Metabolic Panel w/ Ref rock to MGOrdered By: Hernandez Tovar on 12-06-2020 Anion gap [Moles/Vol] 10 mmol/L [facility] [employer] Work Phone: Calcium [Mass/Vol] 8.2 mg/dL Low 8.5 - 9.9 mg/dL [facility] [employer] Work Phone: Chloride [Moles/Vol] 102 mmol/L [facility] [employer] Work Phone: CO2 [Moles/Vol] 25 mmol/L [facility] Work Phone: Creatinine [Mass/Vol] 1.18 mg/dL 0.70 - 1.20 mg/dL [facility] [employer] Work Phone: GFR >60.0 >60 [employer] Phone: Comment on above: >60 mL/min/1.73m2 EG FR, calc. for ages 18 and older using the MDRD formula (not corrected for weight), is valid for stable renal function. GFR Non- >60.0 >60 [facility] Phone: Comment on above: >60 mL/min/1.73m2 EG FR, calc. for ages 18 and older using the MDRD formula (not corrected for weight), is valid for stable renal function. Glucose [Mass/Vol] 197 mg/dL High 70 - 99 mg/dL [facility] Phone: Interpretation and review of laboratory results Abnormal [facility] Phone: Potassium reflex Magnesium 4.1 [facility] Phone: Sodium [Moles/Vol] 137 mmol/L [facility] Phone: Urea nitrogen (BldV) [Mass/Vol] 19 mg/dL 8 - 23 mg/dL [facility] Phone: [facility] Phone: CBC With Platelet No Differe ntialon 12-06-2020 Erythrocyte distribution width (RBC) [Ratio] 13.1 % Normal 11.5-14.5 [facility] Comment on above: Performed By: #### C BCND #### [facility] [address] [place] [address] Hematocrit (Bld) [Volume fraction] 30.4 % Low 42.0-52.0 [facility] Comment on above: Performed By: #### C BCND #### [facility] [address] [place] [address] Hemoglobin (Bld) [Mass/Vol] 10.0 g/dL Low 14.0-18.0 [facility] Comment on above: Performed By: #### C BCND #### [facility] [address] [place] [address] MCH (RBC) [Entitic mass] 32.6 pg Critically high 27.0-31.3 [facility] Comment on above: Performed By: #### C BCND #### [facility] [address] [place] [address] MCHC 32.9 % Low 33.0-37.0 [facility] Comment on above: Performed By: #### C BCND #### [facility] [address] [place] [address] MCV (RBC) [Entitic vol] 99.0 fL Normal 80.0-100.0 [facility] Comment on above: Performed By: #### C BCND #### [facility] [address] [place] [address] Platelets (Bld) [#/Vol] 161 10*3/uL Normal 130-400 [facility] Comment on above: Performed By: #### C BCND #### [facility] [address] [place] [address] RBC (Bld) [#/Vol] 3.07 10*6/uL Low 4.70-6.10 [facility] Comment on above: Performed By: #### C BCND #### [facility] [address] [place] [address] WBC (Bld) [#/Vol] 8.4 10*3/uL Normal 4.8-10.8 [facility] Comment on above: Performed By: #### C BCND #### [facility] [address] [place] [address] CBC without DiffOrdered By: Hernandez Tovar on 12-06-2020 Hematocrit (Bld) [Volume fraction] 30.4 % Low 42.0 - 52.0 % [facility] Phone: Hemoglobin.gastrointes tinal spec 1 Ql (Stl) 10.0 g/dL Low 14.0 - 18.0 g/dL [facility] Phone: Interpretation and review of laboratory results Abnormal [facility] Phone: MCH (RBC) [Entitic mass] 32.6 pg High 27.0 - 31.3 pg [facility] Phone: MCHC (RBC) [Mass/Vol] 32.9 % Low 33.0 - 37.0 % [facility] Phone: MCV (RBC) [Entitic vol] 99.0 fL 80.0 - 100.0 fL [facility] Phone: Platelet distribution width (Bld) [Ratio] 13.1 % 11.5 - 14.5 % [facility] Phone: Platelets (Bld) [#/Vol] 161 10*3/uL 130 - 400 K/uL [facility] Phone: RBC (Bld) [#/Vol] 3.07 10*6/uL Low [facility] Phone: WBC (Bld) [#/Vol] 8.4 10*3/uL 4.8 - 10.8 K/uL [facility] Phone: [facility] Phone: No Panel InformationOrdered By: Unknown Result on 12-06-2020 Interpretation and review of laboratory results Abnormal [facility] Phone: Performed on ACCU-CHEK [facility] Phone: [facility] Phone: POCT Glucoseon 12-06-2020 Glucose [Mass/Vol] 198 mg/dL Critically high 60-115 M [facility] Comment on above: Performed By: #### P GLU #### [facility] [address] [place] [address] POC Performed on ACCU-CHEK Normal [facility] Comment on above: Performed By: #### P GLU #### [facility] [address] [place] [address] Glucose [Mass/Vol] 210 mg/dL Critically high 60-115 M [facility] Comment on above: Performed By: #### P GLU #### [facility] [address] [place] [address] POC Performed on ACCU-CHEK Normal [facility] Comment on above: Performed By: #### P GLU #### [facility] [address] [place] [address] Glucose [Mass/Vol] 189 mg/dL Critically high 60-115 M [facility] Comment on above: Performed By: #### P GLU #### [facility] [address] [place] [address] POC Performed on ACCU-CHEK Normal [facility] Comment on above: Performed By: #### P GLU #### [facility] [address] [place] [address] POC Performed on ACCU-CHEK Normal [facility] Comment on above: Performed By: #### P GLU #### [facility] [address] [place] [address] POCT GlucoseOrdered By: Unkn own Result on 12-06-2020 Glucose [Mass/Vol] 198 mg/dL High 60 - 115 mg/dl [facility] Phone: Interpretation and review of laboratory results Abnormal [facility] Phone: Performed on ACCU-CHEK [facility] Phone: [facility] Phone: Glucose [Mass/Vol] 210 mg/dL High 60 - 115 mg/dl [facility] Phone: Interpretation and review of laboratory results Abnormal [facility] Phone: Performed on ACCU-CHEK [facility] Phone: [facility] Phone: Glucose [Mass/Vol] 189 mg/dL High 60 - 115 mg/dl [facility] Work Phone: Glucose [Mass/Vol] 171 mg/dL Critically high 60-115 M [facility] [employer] Phone: Comment on above: Performed By: #### P GLU #### [facility] [address] [place] [id number] Surgical Specimenon 12-07-19 Surgical Specimen [facility] [address] [place], [place] [id number] FINAL SURGICAL PATHOLOGY REPORT Patient Name: DEONDRE LR Accession No: [id number] Age Sex: 1955 Location: [place] [id number] Account No: [id number] Collected: 12/06/2020 Med Rec No: [id number] Received: 12/06/2020 Attend Phys: HERNANDEZ TOVAR Completed: 12/08/2020 Perform Phys: HERNANDEZ TOVAR FINAL DIAGNOSIS: DISC: DEGENERATING INTERVERTEBRAL DISC MATERIAL. PSW/PSW CLINICAL INFORMATION: L3-4, L4-5 posterior lumbar interbody fusion. Preop diagnosis: Radiculopathy, pseudoarthrosis, spondylosis, facet arthropathy. SPECIMEN: Disc GROSS DESCRIPTION: Received is one container labeled with the patient's name and designated spine . The specimen consists of portions of pink rubbery tissue and bone, 2.6 x 2 x 0.4 cm in aggregate. The specimen is submitted in toto in two cassettes following decalcification. NORA CPT: 68641 X1 32699 X1 MAIA DUGAN M.D. 12/08/2020 Electronically signed out by Page 1 of 1 Invalid Interpretation Code [facility] Comment on above: Performed By: #### P GLU #### [facility] [address] [place] [id number] Basic Metabolic Panelon Anion gap [Moles/Vol] 10 mmol/L Normal 9-15 [facility] Comment on above: Performed By: #### B MP #### [facility] [address] [place] [address] Calcium [Mass/Vol] 9.3 mg/dL Normal 8.5-9.9 [facility] Comment on above: Performed By: #### B MP #### [facility] [address] [place] [address] Chloride [Moles/Vol] 108 mmol/L Critically high 95-107 [facility] Comment on above: Performed By: #### B MP #### [facility] [address] [place] [address] CO2 [Moles/Vol] 26 mmol/L Normal 20-31 [facility] Comment on above: Performed By: #### B MP #### [facility] [address] [place] [address] Creatinine [Mass/Vol] 1.03 mg/dL Normal 0.70-1.20 [facility] Comment on above: Performed By: #### B MP #### [facility] [address] [place] [address] GFR >60.0 Normal >60 [facility] Comment on above: Result Comment: >60 mL/min/1.73m2 EGFR, calc. for ages 18 and older using the MDRD formula (not corrected for weight), is valid for stable renal function. Performed By: #### B MP #### [facility] [address] [place] [address] GFR/1.73 sq M.predicted among blacks MDRD (S/P/Bld) [Vol rate/Area] mL/min/{1.73_m2} Normal >60 [facility] Comment on above: Result Comment: >60 mL/min/1.73m2 EGFR, calc. for ages 18 and older using the MDRD formula (not corrected for weight), is valid for stable renal function. Performed By: #### B MP #### [facility] [address] [place] [address] Glucose [Mass/Vol] 104 mg/dL Critically high 70-99 M [facility] Comment on above: Performed By: #### B MP #### [facility] [address] [place] [address] Potassium [Moles/Vol] 4.3 mmol/L Normal 3.4-4.9 [facility] Comment on above: Performed By: #### B MP #### [facility] [address] [place] [address] Sodium [Moles/Vol] 144 mmol/L Normal 135-144 [facility] Comment on above: Performed By: #### B MP #### [facility] [address] [place] [address] Urea nitrogen [Mass/Vol] 14 mg/dL Normal 8-23 [facility] Comment on above: Performed By: #### B MP #### [facility] [address] [place] [address] CBC With Platelet No Differe ntialon 11-25-2020 Erythrocyte distribution width (RBC) [Ratio] 13.2 % Normal 11.5-14.5 [facility] Comment on above: Performed By: #### C BCND #### [facility] [address] [place] [address] Hematocrit (Bld) [Volume fraction] 32.3 % Low 42.0-52.0 [facility] Comment on above: Performed By: #### C BCND #### [facility] [address] [place] [address] Hemoglobin (Bld) [Mass/Vol] 11.1 g/dL Low 14.0-18.0 [facility] Comment on above: Performed By: #### C BCND #### [facility] [address] [place] [address] MCH (RBC) [Entitic mass] 33.8 pg Critically high 27.0-31.3 [facility] Comment on above: Performed By: #### C BCND #### [facility] [address] [place] [address] MCHC 34.4 % Normal 33.0-37.0 [facility] Comment on above: Performed By: #### C BCND #### [facility] [address] [place] [address] MCV (RBC) [Entitic vol] 98.3 fL Normal 80.0-100.0 [facility] Comment on above: Performed By: #### C BCND #### [facility] [address] [place] [address] Platelets (Bld) [#/Vol] 212 10*3/uL Normal 130-400 [facility] Comment on above: Performed By: #### C BCND #### [facility] [address] [place] [address] RBC (Bld) [#/Vol] 3.29 10*6/uL Low 4.70-6.10 [facility] Comment on above: Performed By: #### C BCND #### [facility] [address] [place] [address] WBC (Bld) [#/Vol] 7.5 10*3/uL Normal 4.8-10.8 [facility] Comment on above: Performed By: #### C BCND #### [facility] [address] [place] [address] Partial Thromboplastin Timeo n 11-25-2020 aPTT Coag (Bld) [Time] 33.3 s Normal 24.4-36.8 [facility] Comment on above: Result Comment: Effe ctive 03/30/2020: Heparin Therapeutic Range: 64.0 ? 98.0 seconds. Performed By: #### P TT #### [facility] [address] [place] [address] Prothrombin Timeon INR Coag (PPP) [Relative time] 1.0 {INR} Normal [facility] Comment on above: Performed By: #### P T #### [facility] [address] [place] [address] PT Coag (PPP) [Time] 13.0 s Normal 12.3-14.9 [facility] Comment on above: Performed By: #### P T #### [facility] [address] [place] [id number] Type and Screen Capture 3 sc rn cellon 11-25-2020 Type and Screen Capture 3 scrn cell PATIENT: GERONIMO Koroma LOC: [facility] BILL# : [id number] : 1955 SEX: M ORDERED BY: GLORIA ORDAZ ORDERED : 11/25/2020 13:32 COLLECTED: 11/25/2020 13:34 ORDER : [id number] RECEIVED : 11/25/2020 16:04 TEST NAME RESULT UNITS RANGES ABN FL ST ABORH Capture O POS F Antibody 3 Cell Scrn Captu NEG F Normal [facility] Comment on above: Performed By: #### T S3C #### [facility] [address] [place] [address] XR SPINE ENTIRE (2-3 VIEWS)O rdered By: Belinda Monroe on 11-25-2020 CLINICAL HISTORY:M54.10 Radiculopathy, unspecified spinal region ICD10 XR SPINE ENTIRE (2-3 VIEWS) COMPARISON: Lumbar spine x-rays from October 20092019 TECHNIQUE: 8 views of the cervical thoracic and lumbar spine alongside a ruler FINDINGS: Cardiac and mediastinal silhouettes are normal in size and contour. No focal areas of consolidations or effusion are noted. The bowel gas pattern is nonspecific. There are no lytic or sclerotic bone lesions. The visualized bones are demineralized. There is no acute fracture or subluxation. There is no significant scoliosis. There is evidence of prior kyphoplasty is in the midthoracic spine with mild increased kyphosis of the thoracic spine. The patient is status post occlusively discectomy with posterior fusion from L4 to S1 with transpedicular screws and vertical bars the orthopedic hardware is intact. The soft tissues are within normal limits. IMPRESSION There are no acute osseous changes. There is no significant scoliosis. [facility] Phone: [facility] Incoming Radiant Results From [employer] - 11/25/2020 4:28 PM EDT CLINICAL HISTORY:M54.10 Radiculopathy, unspecified spinal region ICD10 XR SPINE ENTIRE (2-3 VIEWS) COMPARISON: Lumbar spine x-rays from October 20092019 TECHNIQUE: 8 views of the cervical thoracic and lumbar spine alongside a ruler FINDINGS: Cardiac and mediastinal silhouettes are normal in size and contour. No focal areas of consolidations or effusion are noted. The bowel gas pattern is nonspecific. There are no lytic or sclerotic bone lesions. The visualized bones are demineralized. There is no acute fracture or subluxation. There is no significant scoliosis. There is evidence of prior kyphoplasty is in the midthoracic spine with mild increased kyphosis of the thoracic spine. The patient is status post occlusively discectomy with posterior fusion from L4 to S1 with transpedicular screws and vertical bars the orthopedic hardware is intact. The soft tissues are within normal limits. IMPRESSION There are no acute osseous changes. There is no significant scoliosis. [facility] Phone: [facility] Phone: XR SPINE ENTIRE (2-3 VIEWS)o n 11-25-2020 XR SPINE ENTIRE (2-3 VIEWS) CLINICAL HISTORY:M54.10 Radiculopathy, unspecified spinal region ICD10 XR SPINE ENTIRE (2-3 VIEWS) COMPARISON: Lumbar spine x-rays from October 20092019 TECHNIQUE: 8 views of the cervical thoracic and lumbar spine alongside a ruler FINDINGS: Cardiac and mediastinal silhouettes are normal in size and contour. No focal areas of consolidations or effusion are noted. The bowel gas pattern is nonspecific. There are no lytic or sclerotic bone lesions. The visualized bones are demineralized. There is no acute fracture or subluxation. There is no significant scoliosis. There is evidence of prior kyphoplasty is in the midthoracic spine with mild increased kyphosis of the thoracic spine. The patient is status post occlusively discectomy with posterior fusion from L4 to S1 with transpedicular screws and vertical bars the orthopedic hardware is intact. The soft tissues are within normal limits. IMPRESSION There are no acute osseous changes. There is no significant scoliosis. Interpreted by: Les Delgado MD Signed by: Les Delgado MD 11/25/20 Final result Normal [facility] POCT GlucoseOrdered By: Unkn own Result on 06-08-2019 Glucose [Mass/Vol] 127 mg/dL High 60 - 115 mg/dl [facility] Phone: Interpretation and review of laboratory results Abnormal [facility] Phone: Performed on ACCU-CHEK [facility] Phone: Glucose [Mass/Vol] 125 mg/dL [facility] Phone: Performed on [employer] Phone: POCT GlucoseOrdered By: Unkn own Result on 06-07-2019 Glucose [Mass/Vol] 112 mg/dL [facility] Phone: Performed on ACCU-CHEK [facility] Phone: Glucose [Mass/Vol] 123 mg/dL [facility] Phone: Performed on ACCU-CHEK [facility] Phone: Glucose [Mass/Vol] 131 mg/dL [facility] Phone: Performed on ACCU-CHEK [facility] Phone: Glucose [Mass/Vol] 110 mg/dL [facility] Phone: Performed on ACCU-CHEK [facility] Phone: POCT GlucoseOrdered By: Unkn own Result on 06-06-2019 Glucose [Mass/Vol] 117 mg/dL [facility] [employer] Phone: Performed on ACCU-CHEK [facility] Work Phone: Glucose [Mass/Vol] 126 mg/dL [facility] [employer] Phone: Performed on ACCU-CHEK [facility] Work Phone: Glucose [Mass/Vol] 125 mg/dL [facility] [employer] Phone: Performed on ACCU-CHEK [employer] Work Phone: Glucose [Mass/Vol] 138 mg/dL [facility] [employer] Phone: Performed on ACCU-CHEK [employer] Work Phone: Glucose [Mass/Vol] 124 mg/dL [facility] [employer] Phone: Performed on ACCU-CHEK [employer] Work Phone: Basic Metabolic Panel w/ Ref rock to MGOrdered By: Hernandez Tovar on 06-05-2019 Anion gap [Moles/Vol] 14 mmol/L [facility] [employer] Work Phone: Calcium [Mass/Vol] 8.5 mg/dL 8.5 - 9.9 mg/dL [facility] [employer] Work Phone: Chloride [Moles/Vol] 98 mmol/L [facility] [employer] Work Phone: CO2 [Moles/Vol] 25 mmol/L [facility] Work Phone: Creatinine [Mass/Vol] 0.94 mg/dL 0.7 - 1.2 mg/dL [facility] [employer] Work Phone: GFR >60.0 >60 [facility] [employer] Work Phone: Comment on above: >60 mL/min/1.73m2 EG FR, calc. for ages 18 and older using the MDRD formula (not corrected for weight), is valid for stable renal function. GFR Non- >60.0 >60 [facility] Phone: Comment on above: >60 mL/min/1.73m2 EG FR, calc. for ages 18 and older using the MDRD formula (not corrected for weight), is valid for stable renal function. Glucose [Mass/Vol] 180 mg/dL High 70 - 99 mg/dL [facility] Phone: Interpretation and review of laboratory results Abnormal [facility] Phone: Potassium reflex Magnesium 3.6 [facility] Phone: Sodium [Moles/Vol] 137 mmol/L [facility] Phone: Urea nitrogen [Mass/Vol] 14 mg/dL 8 - 23 mg/dL [facility] Phone: CBC auto differentialOrdered By: Hernandez Tovar on 06-05-2019 Bands Relative 1 % [employer] Work Phone: Basophils (Bld) [#/Vol] 0.0 10*3/uL 0 - 0.2 K/uL [facility] Phone: Basophils/100 WBC (Bld) 0.4 % [facility] Phone: Eosinophils (Bld) [#/Vol] 0.0 10*3/uL 0 - 0.7 K/uL [facility] Phone: Eosinophils/100 WBC (Bld) 0.1 % [facility] Phone: Erythrocyte distribution width (RBC) [Ratio] 13.4 % 11.5 - 14.5 % [facility] Phone: Hematocrit (Bld) [Volume fraction] 32.2 % Low 42 - 52 % [facility] Phone: Hemoglobin (Bld) [Mass/Vol] 10.6 g/dL Low 14 - 18 g/dL [facility] Phone: Interpretation and review of laboratory results Abnormal [facility] Phone: Lymphocytes (Bld) [#/Vol] 1.1 10*3/uL 1 - 4.8 K/uL [facility] Phone: Lymphocytes/100 WBC (Bld) 7.0 % [facility] Phone: Macrocytes Ql (Bld) 1+ [facility] Phone: MCH (RBC) [Entitic mass] 33.3 pg High 27 - 31.3 pg [facility] Phone: MCHC 33.0 % 33 - 37 % [facility] Phone: MCV (RBC) [Entitic vol] 101.1 fL High 80 - 100 fL [facility] Phone: Monocytes (Bld) [#/Vol] 0.8 10*3/uL 0.2 - 0.8 K/uL [facility] Phone: Monocytes/100 WBC (Bld) 4.7 % [facility] Phone: Neutrophils Absolute 13.4 K/uL High 1.4 - 6 .5 K/uL [facility] Phone: Neutrophils/100 WBC (Bld) 88.0 % [facility] Phone: PLATELET SLIDE REVIEW Normal [facility] [employer] Phone: Platelets (Bld) [#/Vol] 223 10*3/uL 130 - 400 K/uL [facility] Phone: RBC (Bld) [#/Vol] 3.19 10*6/uL Low [facility] Phone: SLIDE REVIEW see below [facility] Phone: Comment on above: Slide review agrees with reported results WBC (Bld) [#/Vol] 15.1 10*3/uL High 4.8 - 10.8 K/uL [facility] Phone: POCT GlucoseOrdered By: Unkn own Result on 06-05-2019 Glucose [Mass/Vol] 134 mg/dL [facility] Phone: Performed on ACCU-CHEK [facility] Phone: Glucose [Mass/Vol] 166 mg/dL [facility] Phone: Performed on ACCU-CHEK [facility] Phone: Glucose [Mass/Vol] 166 mg/dL [facility] Phone: Performed on ACCU-CHEK [facility] Phone: Glucose [Mass/Vol] 160 mg/dL High 60 - 115 mg/dl [facility] Phone: Interpretation and review of laboratory results Abnormal [facility] Phone: Performed on ACCU-RemotiumK [facility] Phone: Surgical PathologyOrdered By : Hernandez Tovar on 06-05-2019 [facility] [address] [place] [address] FINAL SURGICAL PATHOLOGY REPORT Patient Name: DEONDRE LR Accession No: [id number] Age Sex: 1955 Location: [facility] [id number] Account No: [id number] Collected: 06/04/2019 Med Rec No: [id number] Received: 06/04/2019 Attend Phys: HERNANDEZ TOVAR Completed: 06/05/2019 Perform Phys: HERNANDEZ TOVAR FINAL DIAGNOSIS: DISC- INTERVERTEBRAL DISC MATERIAL WITH DEGENERATIVE CHANGES. ALIFA/ALIFA CLINICAL INFORMATION: Spondylosis. Stenosis. Facet arthropathy. Radiculopathy. SPECIMEN: Disc GROSS DESCRIPTION: Specimen received in formalin in a container labeled with patient's name and designated as spine . Specimen consists of multiple pinkish-howell soft to firm tissue fragments measuring in aggregate 3.5 x 3.2 x 0.5 cm. Sections representatives are submitted in two cassettes labeled A1 and A2 for brief decalcification. WADE/TOBIN CPT: 66189 X1 ALDA ELLER M.D. 06/05/2019 Electronically signed out by Page 1 of 1 [facility] Phone: XR LUMBAR SPINE (2-3 VIEWS)O rdered By: Hernandez Tovar on 06-05-2019 Impression: 1. Postoperative changes as described above without unexpected postoperative complicating features. 2. Mild bilateral osteoarthritis of the hips. [facility] Phone: Patient : 1955 Age: 64 years Gender: Male Order Date: 06/05/2019 11:00 AM. Exam: XR LUMBAR SPINE (2-3 VIEWS) Number of Views: 3 Indication: Postoperative evaluation Comparison: None Findings: Posterior spinal fixation L4-S1, with interbody fusion device placement at L5-S1. Surgical saul. No unexpected postoperative concave features are seen. Surgical clips right upper abdomen. Nonobstructive bowel gas pattern. Mild degenerative changes bilateral hips. [facility] Phone: Geetha Lopes Incoming Radiant Results From BMP [employer] - 06/05/2019 11:52 AM EST Patient : 1955 Age: 64 years Gender: Male Order Date: 06/05/2019 11:00 AM. Exam: XR LUMBAR SPINE (2-3 VIEWS) Number of Views: 3 Indication: Postoperative evaluation Comparison: None Findings: Posterior spinal fixation L4-S1, with interbody fusion device placement at L5-S1. Surgical saul. No unexpected postoperative concave features are seen. Surgical clips right upper abdomen. Nonobstructive bowel gas pattern. Mild degenerative changes bilateral hips. IMPRESSION: Impression: 1. Postoperative changes as described above without unexpected postoperative complicating features. 2. Mild bilateral osteoarthritis of the hips. [facility] Phone: APTTOrdered By: Susie laura on 06-04-2019 aPTT Coag (Bld) [Time] 32.3 s Wa [employer] Phone: Comment on above: Effective 12/11/2018: Please note methodology and/or reference ranges have changed. aPTT - Heparin Therapeutic Range: 74.0 - 106 seconds Basic Metabolic PanelOrdered By: Susie Lee on 06-04-2019 Anion gap [Moles/Vol] 11 mmol/L [facility] [employer] Work Phone: Calcium [Mass/Vol] 9.0 mg/dL 8.5 - 9.9 mg/dL [facility] Phone: Chloride [Moles/Vol] 106 mmol/L [employer] Work Phone: CO2 [Moles/Vol] 26 mmol/L [employer] [facility] Work Phone: Creatinine [Mass/Vol] 0.93 mg/dL 0.7 - 1.2 mg/dL [facility] Phone: GFR >60.0 >60 [employer] Phone: Comment on above: >60 mL/min/1.73m2 EG FR, calc. for ages 18 and older using the MDRD formula (not corrected for weight), is valid for stable renal function. GFR Non- >60.0 >60 [facility] Phone: Comment on above: >60 mL/min/1.73m2 EG FR, calc. for ages 18 and older using the MDRD formula (not corrected for weight), is valid for stable renal function. Glucose [Mass/Vol] 134 mg/dL High 70 - 99 mg/dL [facility] Phone: Interpretation and review of laboratory results Abnormal [facility] Phone: Potassium [Moles/Vol] 4.3 mmol/L [facility] [employer] Work Phone: Sodium [Moles/Vol] 143 mmol/L [facility] Phone: Urea nitrogen [Mass/Vol] 19 mg/dL 8 - 23 mg/dL [facility] Phone: Basic Metabolic Panel w/ Ref rock to MGOrdered By: Hernandez Tovar on 06-04-2019 Anion gap [Moles/Vol] 13 mmol/L [facility] [employer] Work Phone: Calcium [Mass/Vol] 8.3 mg/dL Low 8.5 - 9.9 mg/dL [facility] [employer] Work Phone: Chloride [Moles/Vol] 104 mmol/L [facility] Work Phone: CO2 [Moles/Vol] 23 mmol/L [facility] Work Phone: Creatinine [Mass/Vol] 0.91 mg/dL 0.7 - 1.2 mg/dL [facility] Phone: GFR >60.0 >60 [facility] [employer] Work Phone: Comment on above: >60 mL/min/1.73m2 EG FR, calc. for ages 18 and older using the MDRD formula (not corrected for weight), is valid for stable renal function. GFR Non- >60.0 >60 [facility] [employer] Work Phone: Comment on above: >60 mL/min/1.73m2 EG FR, calc. for ages 18 and older using the MDRD formula (not corrected for weight), is valid for stable renal function. Glucose [Mass/Vol] 177 mg/dL High 70 - 99 mg/dL [facility] Phone: Interpretation and review of laboratory results Abnormal [facility] [employer] Phone: Potassium reflex Magnesium 4.2 [facility] Phone: Sodium [Moles/Vol] 140 mmol/L [facility] Phone: Urea nitrogen [Mass/Vol] 18 mg/dL 8 - 23 mg/dL [facility] Phone: CBCOrdered By: Susie ewing on 06-04-2019 Erythrocyte distribution width (RBC) [Ratio] 13.7 % 11.5 - 14.5 % [facility] Phone: Hematocrit (Bld) [Volume fraction] 35.1 % Low 42 - 52 % [facility] Phone: Hemoglobin (Bld) [Mass/Vol] 11.7 g/dL Low 14 - 18 g/dL [facility] Phone: Interpretation and review of laboratory results Abnormal [facility] Phone: MCH (RBC) [Entitic mass] 33.6 pg High 27 - 31.3 pg [facility] Phone: MCHC 33.4 % 33 - 37 % [facility] Phone: MCV (RBC) [Entitic vol] 100.7 fL High 80 - 100 fL [facility] Phone: Platelets (Bld) [#/Vol] 206 10*3/uL 130 - 400 K/uL [facility] Phone: RBC (Bld) [#/Vol] 3.48 10*6/uL Low [facility] Phone: WBC (Bld) [#/Vol] 7.6 10*3/uL 4.8 - 10.8 K/uL [facility] Phone: CBC without DiffOrdered By: Hernandez Tovar on 06-04-2019 Erythrocyte distribution width (RBC) [Ratio] 13.7 % 11.5 - 14.5 % [facility] Phone: Hematocrit (Bld) [Volume fraction] 32.9 % Low 42 - 52 % [facility] Phone: Hemoglobin (Bld) [Mass/Vol] 10.7 g/dL Low 14 - 18 g/dL [facility] Phone: Interpretation and review of laboratory results Abnormal [facility] Phone: MCH (RBC) [Entitic mass] 33.4 pg High 27 - 31.3 pg [facility] Work Phone: MCHC 32.6 % Low 33 - 37 % [facility] Phone: MCV (RBC) [Entitic vol] 102.4 fL High 80 - 100 fL [facility] Phone: Platelets (Bld) [#/Vol] 177 10*3/uL 130 - 400 K/uL [facility] Phone: RBC (Bld) [#/Vol] 3.22 10*6/uL Low [facility] Phone: WBC (Bld) [#/Vol] 9.0 10*3/uL 4.8 - 10.8 K/uL [facility] Phone: POCT GlucoseOrdered By: Unkn own Result on 06-04-2019 Glucose [Mass/Vol] 181 mg/dL High 60 - 115 mg/dl [facility] Phone: Interpretation and review of laboratory results Abnormal [facility] Phone: Performed on ACCU-CHEHunterOn Phone: Glucose [Mass/Vol] 187 mg/dL High 60 - 115 mg/dl [facility] Phone: Interpretation and review of laboratory results Abnormal [facility] Phone: Performed on ACCU-CHEK [facility] Phone: Glucose [Mass/Vol] 140 mg/dL High 60 - 115 mg/dl [facility] Phone: Interpretation and review of laboratory results Abnormal [facility] Phone: Performed on ACCU-CHEK [facility] Phone: Protime-INROrdered By: Alejandro Lee on 06-04-2019 INR Coag (PPP) [Relative time] 1.0 {INR} [facility] Phone: Comment on above: Warfarin Therapy INR Therapeutic: 2.0-3.0 With Mechanical Valve: >2.5 Low-intensity Therapeutic Range: 1.5-2.0 Mod-intensity Therapeutic Range: 2.0-3.0 High-intensity Therapeutic Range: 2.5-3.5 High-intensity Therapeutic Range: 3.0-4.0 Common Critical/Alarm Value: 5.0 Common Upper Limit Reported: 10.0 Effective 12/04/2018: Please note methodology and/or reference ranges have changed. PT Coag (PPP) [Time] 13.1 s [employer] Phone: Comment on above: Effective 12/04/18 Please note methodology and/or reference ranges have changed. TYPE AND SCREENOrdered By: Camelia Lee on 06-04-2019 ABO/Rh Positive [facility] Phone: Vital Signs Date Time Vital Sign Value Performing Clinician Facility 02-04-2023 15:30-0400 Body height 165.1 cm Mike Yuan Other [facility] Other 02-04-2023 15:30-0400 Body mass index (BMI) [Ratio] 28.05 kg/m2 Mike Yuan Other [facility] Other 02-04-2023 15:30-0400 Body weight 76.48 kg Mike Yuan Other [facility] Other 02-04-2023 15:30-0400 Diastolic blood pressure 58 mm[Hg] Mike Yuan Other [facility] Other 02-04-2023 15:30-0400 Respiratory rate 12 /min Mike Yuan Other [facility] Other 02-04-2023 15:30-0400 Systolic blood pressure 93 mm[Hg] Mike Yuan Other [facility] Other 11-02-2022 14:45-0400 Body height 165.1 cm Mike Yuan Other [facility] Other 11-02-2022 14:45-0400 Body mass index (BMI) [Ratio] 28.95 kg/m2 Mike Yuan Other [facility] Other 11-02-2022 14:45-0400 Body weight 78.93 kg Mike Yuan Other [facility] Other 11-02-2022 14:45-0400 Diastolic blood pressure 63 mm[Hg] Mike Yuan Other [facility] Other 11-02-2022 14:45-0400 Systolic blood pressure 97 mm[Hg] Mike Yuan Other [facility] [employer] Other 12-06-2021 13:34-0400 SaO2% (BldA) [Mass fraction] 95 % Skye Garcia MD Work Phone: [employer] 12-06-2021 13:00-0400 Diastolic blood pressure 71 mm[Hg] Skye Garcia MD Work Phone: [employer] 12-06-2021 13:00-0400 Systolic blood pressure 95 mm[Hg] Skye Garcia MD Work Phone: [employer] 12-06-2021 12:51-0400 Body height 165.1 cm Skye Garcia MD Work Phone: [employer] 12-06-2021 12:51-0400 Body mass index (BMI) [Ratio] 29.95 kg/m2 Skye Garcia MD Work Phone: [employer] 12-06-2021 12:51-0400 Body weight 81.65 kg Skye Garcia MD Work Phone: [employer] 12-06-2021 12:51-0400 Heart rate 70 /min Skye Garcia MD Work Phone: [employer] 12-06-2021 12:51-0400 Respiratory rate 18 /min Skye Garcia MD Work Phone: [facility] [employer] 09-06-2021 08:21-0400 Body height 165.1 cm Zenia Molina MD Work Phone: [facility] [employer] 09-06-2021 06:42-0400 Body temperature 98.01 [degF] Zenia Molina MD Work Phone: [facility] [employer] 09-06-2021 06:42-0400 Diastolic blood pressure 60 mm[Hg] Zenia Molina MD Work Phone: [facility] [employer] 09-06-2021 06:42-0400 Heart rate 71 /min Zenia Molina MD Work Phone: [facility] [employer] 09-06-2021 06:42-0400 Respiratory rate 16 /min Zenia Molina MD Work Phone: [facility] [employer] 09-06-2021 06:42-0400 SaO2% (BldA) [Mass fraction] 93 % Zenia Molina MD Work Phone: [facility] [employer] 09-06-2021 06:42-0400 Systolic blood pressure 99 mm[Hg] Zenia Molina MD Work Phone: [facility] [employer] 09-05-2021 07:45-0400 Body mass index (BMI) [Ratio] 29.29 kg/m2 Zenia Molina MD Work Phone: [facility] [employer] 09-05-2021 07:45-0400 Body weight 79.83 kg Zenia Molina MD Work Phone: [facility] [employer] 08-22-2021 10:36-0400 Body height 165.1 cm Zenia Molina MD Work Phone: [facility] [employer] 08-22-2021 10:36-0400 Body temperature 97.9 [degF] Zenia Molina MD Work Phone: [facility] [employer] 08-22-2021 10:36-0400 Diastolic blood pressure 78 mm[Hg] Zenia Molina MD Work Phone: [facility] 08-22-2021 10:36-0400 Heart rate 87 /min Zenia Molina MD Work Phone: [facility] 08-22-2021 10:36-0400 Respiratory rate 18 /min Zenia Molina MD Work Phone: [facility] 08-22-2021 10:36-0400 SaO2% (BldA) [Mass fraction] 98 % Zenia Molina MD Work Phone: [facility] 08-22-2021 10:36-0400 Systolic blood pressure 141 mm[Hg] Zenia Molina MD Work Phone: [facility] 08-22-2021 10:18-0400 Body mass index (BMI) [Ratio] 29.45 kg/m2 Zenia Molina MD Work Phone: [facility] 08-22-2021 10:18-0400 Body weight 80.29 kg Zenia Molina MD Work Phone: [facility] 12-08-2020 15:01-0400 Body temperature 98.2 [degF] Hernandez Tovar MD Work Phone: [facility] Work Phone: 12-08-2020 15:01-0400 Diastolic blood pressure 61 mm[Hg] Hernandez Tovar MD Work Phone: [facility] Work Phone: 12-08-2020 15:01-0400 Heart rate 89 /min Hernandez Tovar MD Work Phone: [facility] Work Phone: 12-08-2020 15:01-0400 Respiratory rate 20 /min Hernandez Tovar MD Work Phone: [facility] Work Phone: 12-08-2020 15:01-0400 SaO2% (BldA) [Mass fraction] 98 % Hernandez Tovar MD Work Phone: [facility] Work Phone: 12-08-2020 15:01-0400 Systolic blood pressure 122 mm[Hg] Hernandez Tovar MD Work Phone: [facility] Work Phone: 12-06-2020 23:35-0400 Body height 165.1 cm Hernandez Tovar MD Work Phone: [facility] Work Phone: 12-06-2020 23:35-0400 Body mass index (BMI) [Ratio] 30.25 kg/m2 Hernandez Tovar MD Work Phone: [facility] Work Phone: 12-06-2020 23:35-0400 Body weight 82.46 kg Hernandez Tovar MD Work Phone: [facility] Work Phone: 06-08-2019 07:22-0500 Body temperature 98.2 [degF] Hernandez Tovar MD Work Phone: [facility] Work Phone: 06-08-2019 07:22-0500 Diastolic blood pressure 42 mm[Hg] Hernandez Tovar MD Work Phone: [facility] Work Phone: 06-08-2019 07:22-0500 Heart rate 80 /min Hernandez Tovar MD Work Phone: [facility] Work Phone: 06-08-2019 07:22-0500 Respiratory rate 16 /min Hernandez Tovar MD Work Phone: [facility] Work Phone: 06-08-2019 07:22-0500 SaO2% (BldA) [Mass fraction] 96 % Hernandez Tovar MD Work Phone: [facility] Work Phone: 06-08-2019 07:22-0500 Systolic blood pressure 105 mm[Hg] Hernandez Tovar MD Work Phone: [facility] Work Phone: 06-04-2019 06:15-0500 Body height 162.6 cm Hernandez Tovar MD Work Phone: [facility] Work Phone: 06-04-2019 06:15-0500 Body mass index (BMI) [Ratio] 30.04 kg/m2 Hernandez Tovar MD Work Phone: [facility] Work Phone: 06-04-2019 06:15-0500 Body weight 79.38 kg Hernandez Tovar MD Work Phone: [facility] Work Phone: Encounters Encounter Date Encounter Type Care Provider Facility Start: 03-25-2023 End: 03-26-2023 ambulatory Lesley Greene MD Facility: [facility] Start: 02-04-2023 End: 02-04-2023 ambulatory Mike Yuan Other [facility] Other Start: 02-04-2023 Patient encounter procedure Mike Yuan [facility] Start: 12-12-2022 End: 12-12-2022 ambulatory Berta Hernandez Facility:[facility] Start: 12-12-2022 End: 12-12-2022 ambulatory IRAIS Hernandez Work Phone: [facility] Work Phone: Start: 12-12-2022 End: 12-12-2022 Patient encounter procedure DEPARTMENT DIRECTORDago Hernandez Work Phone: [facility] [place] Work Phone: Start: 11-02-2022 End: 11-02-2022 ambulatory Mike Yuan Other [employer] Other Start: 11-02-2022 Office outpatient vi sit 25 minutes Mike [facility] Start: 10-17-2022 End: 10-19-2022 Evaluation and management of inpatient SHAIKH Sade VARGAS Facility:[facility] Start: 10-09-2022 ambulatory NARENDRANATH LAKSHMIPATHY . Facility:[facility] Start: 09-24-2022 End: 09-25-2022 ambulatory NARENDRANATH LAKSHMIPATHY . Facility:[facility] Start: 09-18-2022 End: 09-19-2022 ambulatory NARENDRANATH LAKSHMIPATHY . Facility:[facility] Start: 07-31-2022 ambulatory NARENDRANATH LAKSHMIPATHY . Facility:[facility] Start: 07-09-2022 Encounter for other preprocedural examination DR CYDNEY REDMOND [facility] Start: 07-05-2022 End: 07-06-[address] CYDNEY REDMOND Facility:[facility] Start: 07-05-2022 End: 07-06-2022 Encounter for other preprocedural examination DR CYDNEY REDMOND Facility:[facility] Start: 06-27-2022 End: 06-28-2022 ambulatory [facility] Start: 06-27-2022 End: 06-28-2022 Encounter for other preprocedural examination [facility] Start: 06-26-2022 Encounter for preprocedural cardiovascular examination DR DOCTOR DE LA CRUZ [facility] Start: 06-26-2022 Encounter for preprocedural laboratory examination DR DOCTOR DE LA CRUZ [facility] Start: 06-22-2022 End: 06-23-[address] DOCTOR DE LA CRUZ Facility:[facility] Start: 06-22-2022 End: 06-23-2022 Encounter for preprocedural laboratory examination DR DOCTOR DE LA CRUZ Facility:[facility] Start: 06-07-[address] LOUISE TANNER . Faci lity:[facility] Start: 05-29-2022 End: 05-29-[address] LOUISE TANNER . Facility:[facility] Start: 04-23-2022 End: 04-24-[address] DOCTOR DE LA CRUZ Facility:[facility] Start: 03-01-2022 End: 03-02-2022 ambulatory DEVAN MAGALLANES . Facility:[facility] Start: 02-13-2022 End: 02-13-[address] MIKE YUAN Facility:[facility] Start: 02-12-2022 End: 02-13-[address] LOUISE TANNER . Facility:[facility] Start: 01-25-2022 End: 01-26-2022 ambulatory DEVAN MAGALLANES . Facility:[facility] Start: 12-06-2021 End: 12-06-2021 Emergency department patient visit [facility] Start: 12-06-2021 End: 12-06-2021 Emergency department patient visit Skye Garcia MD Work Phone: [facility] ED Comment on above: Closed fracture of s haft of left humerus, unspecified fracture morphology, initial encounter (Primary Dx) Start: 11-23-2021 End: 11-24-[address] MIKE YUAN Facility:[facility] Start: 11-07-2021 End: 11-07-[address] MIKE YUAN Facility:[facility] Start: 09-05-2021 End: [facility] Start: 09-05-2021 End: 09-06-2021 Subsequent hospital visit by physician Zenia Molina MD Work Phone: [facility] Comment on above: Post-op pain (Primar y Dx) Start: 08-22-2021 End: 08-22-2021 ambulatory [facility] Start: 08-22-2021 End: 08-22-2021 Subsequent hospital visit by physician Zenia Molina MD Work Phone: [facility] Start: 08-02-2021 End: 08-07-2021 ambulatory ZENIA GABRI[facility]LLA [facility] Start: 08-02-2021 End: 08-04-2021 Subsequent hospital visit by physician Janae Ko [address] [place] [address] Radiology Comment on above: Arrived Start: 12-06-2020 End: 12-08-2020 Evaluation and management of inpatient [facility] Start: 12-06-2020 End: 12-09-2020 ambulatory [facility] Start: 12-06-2020 End: 12-08-2020 Evaluation and management of inpatient Hernandez Tovar MD Work Phone: [facility] Comment on above: Post-op pain (Primar y Dx); Muscle spasm Start: 12-06-2020 End: 12-08-2020 Subsequent hospital visit by physician Hernandez Tovar MD Work Phone: [facility] Radiology Comment on above: Pain Start: 11-25-2020 End: 11-28-2020 ambulatory [facility] Start: 11-25-2020 End: 11-27-2020 Preprocedural examination done [place] 8 [facility] Radiology Start: 11-25-2020 End: 11-27-2020 Subsequent hospital visit by physician Roc Xray Room 8 [facility] Radiology Comment on above: Radiculopathy, unspe cified spinal region; Pseudoarthrosis of lumbar spine; Pre-op examination Start: 06-04-2019 End: 06-08-2019 Evaluation and management of inpatient Hernandez Tovar MD Work Phone: [facility] Comment on above: Post-op pain (Primar y Dx); Lumbar degenerative disc disease Procedures Date Procedure Procedure Detail Performing Clinician Start: 12-12-2022 CT of head without contrast IRAIS Hernandez Work Phone: Start: 12-06-2021 End: 12-06-2021 Radex ribs uni w/posteroant ch minimum 3 views Skye Garcia MD Work Phone: Start: 09-06-2021 GLUCOSE, WHOLE BLOOD Niranjan Molina MD Work Phone: Start: 09-06-2021 Dup-scan xtr veins unilateral/limited study Shmuel Wyatt DEPARTMENT DIRECTOR - LAURA Work Phone: Start: 09-06-2021 GLUCOSE, WHOLE BLOOD Niranjan Molina MD Work Phone: Start: 09-06-2021 Basic metabolic pane l calcium total Zenia Molina MD Work Phone: Start: 09-05-2021 GLUCOSE, WHOLE BLOOD Da gurjit Molina MD Work Phone: Start: 09-05-2021 GLUCOSE, WHOLE BLOOD Da gurjit Molina MD Work Phone: Start: 09-05-2021 Radex shoulder 1 view D tigre Molina MD Work Phone: Start: 09-05-2021 GLUCOSE, WHOLE BLOOD Da gurjit Molina MD Work Phone: Start: 08-22-2021 GLUCOSE, WHOLE BLOOD Da gurjit Molina MD Work Phone: Start: 08-02-2021 Radiologic exam ches t 2 views Zenia Molina MD Work Phone: Start: 12-08-2020 Gluc bld gluc mntr d ev cleared fda spec home use Unknown Provider Result Start: 12-08-2020 Gluc bld gluc mntr d ev cleared fda spec home use Unknown Provider Result Start: 12-08-2020 Blood count complete automated Adjondi Brigid Ilia DEPARTMENT DIRECTOR - [employer]ANING TECHNICIAN Work Phone: Start: 12-08-2020 Gluc bld gluc mntr d ev cleared fda spec home use Unknown Provider Result Start: 12-07-2020 Gluc bld gluc mntr d ev cleared fda spec home use Unknown Provider Result Start: 12-07-2020 Gluc bld gluc mntr d ev cleared fda spec home use Unknown Provider Result Start: 12-07-2020 Gluc bld gluc mntr d ev cleared fda spec home use Unknown Provider Result Start: 12-07-2020 Radex spine lumbosac ral 2/3 views Hernandez Tovar MD Work Phone: Start: 12-07-2020 End: 12-07-2020 Gluc bld gluc mntr dev cleared fda spec home use Unknown Provider Result Start: 12-07-2020 BASIC METABOLIC PANE L W/ REFLEX TO MG FOR LOW K Hernandez Tovar MD Work Phone: Start: 12-06-2020 Gluc bld gluc mntr d ev cleared fda spec home use Unknown Provider Result Start: 12-06-2020 Gluc bld gluc mntr d ev cleared fda spec home use Unknown Provider Result Start: 12-06-2020 BASIC METABOLIC PANE L W/ REFLEX TO MG FOR LOW K Hernandez Tovar MD Work Phone: Start: 12-06-2020 End: 12-06-2020 Gluc bld gluc mntr dev cleared fda spec home use Unknown Provider Result Start: 12-06-2020 Level iv surg pathol ogy gross&microscopic exam Hernandez Tovar MD Work Phone: Start: 12-06-2020 Fluoroscopy during operation Hernandez Tovar MD Work Phone: Start: 12-06-2020 End: 12-06-2020 Arthrodesis posterior interbody lumbar Hernandez Tovar MD Work Phone: Start: 12-06-2020 Gluc bld gluc mntr d ev cleared fda spec home use Unknown Provider Result Start: 11-25-2020 Radex entir thrc lmb r crv sac spi w/skull 2/3 vw Belinda Pittak DEPARTMENT DIRECTOR - INDUSTRIAL CLEANING TECHNICIAN Work Phone: Start: 06-08-2019 Gluc bld gluc mntr d ev cleared fda spec home use Unknown Provider Result Start: 06-08-2019 Gluc bld gluc mntr d ev cleared fda spec home use Unknown Provider Result Start: 06-07-2019 Gluc bld gluc mntr d ev cleared fda spec home use Unknown Provider Result Start: 06-07-2019 Gluc bld gluc mntr d ev cleared fda spec home use Unknown Provider Result Start: 06-07-2019 Gluc bld gluc mntr d ev cleared fda spec home use Unknown Provider Result Start: 06-07-2019 Gluc bld gluc mntr d ev cleared fda spec home use Unknown Provider Result Start: 06-06-2019 Gluc bld gluc mntr d ev cleared fda spec home use Unknown Provider Result Start: 06-06-2019 Gluc bld gluc mntr d ev cleared fda spec home use Unknown Provider Result Start: 06-06-2019 Gluc bld gluc mntr d ev cleared fda spec home use Unknown Provider Result Start: 06-06-2019 Gluc bld gluc mntr d ev cleared fda spec home use Unknown Provider Result Start: 06-06-2019 Gluc bld gluc mntr d ev cleared fda spec home use Unknown Provider Result Start: 06-05-2019 Gluc bld gluc mntr d ev cleared fda spec home use Unknown Provider Result Start: 06-05-2019 Gluc bld gluc mntr d ev cleared fda spec home use Unknown Provider Result Start: 06-05-2019 Radex spine lumbosac ral 2/3 views Hernandez Tovar MD Work Phone: Start: 06-05-2019 Gluc bld gluc mntr d ev cleared fda spec home use Unknown Provider Result Start: 06-05-2019 Gluc bld gluc mntr d ev cleared fda spec home use Unknown Provider Result Start: 06-05-2019 BASIC METABOLIC PANE L W/ REFLEX TO MG FOR LOW K Hernandez Tovar MD Work Phone: Start: 06-05-2019 Blood count complete auto&auto difrntl wbc Hernandez Tovar MD Work Phone: Start: 06-04-2019 Gluc bld gluc mntr d ev cleared fda spec home use Unknown Provider Result Start: 06-04-2019 Gluc bld gluc mntr d ev cleared fda spec home use Unknown Provider Result Start: 06-04-2019 BASIC METABOLIC PANE L W/ REFLEX TO MG FOR LOW K Hernandez Tovar MD Work Phone: Start: 06-04-2019 Blood count complete automated Hernandez Tovar MD Work Phone: Start: 06-04-2019 Level iv surg pathol ogy gross&microscopic exam Hernandez Tovar MD Work Phone: Start: 06-04-2019 FLUORO FOR SURGICAL PROCEDURES Hernandez Tovar MD Work Phone: Start: 06-04-2019 Antibody screen Hernandez Tovar MD Work Phone: Start: 06-04-2019 End: 06-04-2019 Arthrodesis posterior interbody lumbar Hernandez Tovar MD Work Phone: Start: 06-04-2019 Blood typing serologic abo Susie Lee DEPARTMENT DIRECTOR - INDUSTRIAL CLEANING TECHNICIAN Work Phone: Start: 06-04-2019 End: 06-04-2019 Basic metabolic panel calcium total Susie Lee DEPARTMENT DIRECTOR - INDUSTRIAL CLEANING TECHNICIAN Work Phone: Plan of Treatment Date Care Activity Detail Author Start: 03-09-2024 Pneumococcal 65+ years Vaccine (2 of 2 - PPSV23) Pneumococcal 65+ years Vaccine (2 of 2 - PPSV23) [facility] Start: 03-09-2024 Pneumococcal 65+ years Vaccine (3 - PPSV23 or PCV20) Pneumococcal 65+ years Vaccine (3 - PPSV23 or PCV20) [facility] Start: 09-06-2022 Creatinine measurement [facility] Start: 09-06-2022 Potassium monitoring Potassium monitoring [facility] Start: 08-02-2022 Creatinine measurement Creatinine monitoring [facility] Start: 08-02-2022 Hemoglobin A1c measurement A1C test (Diabetic or Prediabetic) [facility] Start: 08-02-2022 Potassium monitoring Potassium monitoring [facility] Start: 01-25-2022 Influenza vaccination Flu vaccine (#1) [facility]LEYDA ERICKSON [facility] Start: 12-07-2021 Creatinine measurement Creatinine monitoring [facility] Work Phone: Start: 12-07-2021 Potassium monitoring Potassium monitoring [facility] Work Phone: Start: 11-25-2021 Creatinine measurement Creatinine monitoring [facility] Work Phone: Start: 11-25-2021 Depression Screen Depression Screen [facility] Start: 11-25-2021 Potassium monitoring Potassium monitoring [facility] Work Phone: Start: 09-05-2021 End: 09-05-2021 Admission to same day surgery center 09/05/2021 Surgery IP Unit Zenia Molina MD [address] [place] [address] SHOULDER TOTAL ARTHROPLASTY REVERSE [facility] Comment on above: SHOULDER TOTAL ARTHROPLASTY REVERSE Start: 09-05-2021 End: 09-05-2021 Arthroplasty glenohumeral joint total shoulder SHOULDER TOTAL ARTHROPLASTY REVERSE ROTATOR CUFF ARTHROPATHY, LEFT SHOULDER 09/05/2021 9:25 AM EDT [facility] Start: 09-05-2021 Subsequent hospital visit by physician 09/05/2021 Hospital Encounter IP Unit Zenia Molina MD [address] [facility] [place] [place] [address] [facility] Start: 08-22-2021 End: 08-22-2021 Admission to same day surgery center 08/22/2021 Surgery IP Unit Zenia Molina MD [address] [place] [address] SHOULDER TOTAL ARTHROPLASTY REVERSE [facility] Comment on above: SHOULDER TOTAL ARTHROPLASTY REVERSE Start: 08-22-2021 End: 08-22-2021 Arthroplasty glenohumeral joint total shoulder SHOULDER TOTAL ARTHROPLASTY REVERSE ROTATOR CUFF REPAIR 08/22/2021 11:30 AM EDT [facility] Start: 08-22-2021 Subsequent hospital visit by physician 08/22/2021 Hospital Encounter IP Unit Zenia Molina MD [address] [place] [address] [facility] Start: 04-16-2021 COVID-19 Vaccine (3 - Booster for Pfizer series) COVID-19 Vaccine (3 - Booster for Pfizer series) [facility] Start: 01-25-2021 Influenza vaccination Flu vaccine (#1) [facility] Work Phone: Start: 12-23-2020 End: 12-23-2020 Patient encounter procedure 12/23/2020 Office Visit Neurosurgery Hernandez Tovar MD [address] [address] [phone] [facility] Neurosurgery Start: 12-16-2020 End: 12-16-2020 Patient encounter procedure 12/16/2020 Office Visit Neurosurgery Hernandez Tovar MD [address] [address] [phone] [facility] Neurosurgery Start: 12-01-2020 End: 12-01-2020 Admission to same day surgery center 12/01/2020 Surgery IP Unit Hernandez Tovar MD [address] [place], [place] [id number] L 4-5 PLIF (POSTERIOR LUMBAR INTERBODY FUSION) INFUSE 2 HOURS/ 1 C-ARM/ MAX TABLE/ SSEP/ CELL SAVERS/ NUVASIVE (PAT [facility]) DR. TOVAR TO START AT 9:00 AM [facility] Comment on above: L 4-5 PLIF (POSTERIOR LUMBAR INTERBODY F USION) INFUSE 2 HOURS/ 1 C-ARM/ MAX TABLE/ SSEP/ CELL SAVERS/ NUVASIVE (PAT [facility]) DR. TOVAR TO START AT 9:00 AM Start: 12-01-2020 Subsequent hospital visit by physician 12/01/2020 Hospital Encounter IP Unit Hernandez Tovar MD [address] [id number] [facility] Start: 11-20-2020 Annual Wellness Visit (AWV) Annual Wellness Visit (AWV) [facility] Phone: Start: 06-05-2020 Creatinine monitoring Creatinine monitoring [facility] Phone: Start: 06-05-2020 Potassium monitoring Potassium monitoring [facility] Phone: Start: 02-19-2020 Abdominal aortic aneurysm screening AAA screen [facility] Start: 02-19-2020 Pneumococcal 65+ years Vaccine (1 of 1 - PPSV23) Pneumococcal 65+ years Vaccine (1 of 1 - PPSV23) [facility] Phone: Start: 02-19-2020 Pneumococcal 65+ years Vaccine (2 of 2 - PPSV23) Pneumococcal 65+ years Vaccine (2 of 2 - PPSV23) [facility] Phone: Start: 06-19-2019 End: 06-19-2019 Patient encounter procedure 06/19/2019 Office Visit Neurosurgery Hernandez Tovar MD [address] [place], [place] [id number] [employer] Start: 01-25-2019 Influenza vaccination Flu vaccine (#1) [facility] Phone: Start: 04-23-2016 Shingles Vaccine (2 of 3) Shingles Vaccine (2 of 3) [facility] Start: 2005 Colon cancer screen colonoscopy Colon cancer screen colonoscopy [facility] Phone: Start: 2005 Screening for malignant neoplasm of colon Colon cancer screen colonoscopy [facility] Phone: Start: 2005 Shingles Vaccine (1 of 2) Shingles Vaccine (1 of 2) [facility] Phone: Start: 02-19-2000 Screening for malignant neoplasm of colon [facility] Start: 1995 Diabetes screen Diabetes screen [facility] Phone: Start: 1995 Lipid screen Lipid screen [facility] Phone: Start: 1995 Prostate specific antigen measurement Prostate Specific Antigen (PSA) Screening or Monitoring [facility] Start: 1974 DTaP/Tdap/Td vaccine (1 - Tdap) DTaP/Tdap/Td vaccine (1 - Tdap) [facility] Start: 1973 Diabetic microalbuminuria test Diabetic microalbuminuria test [facility] Phone: Start: 1973 Diabetic retinal exam Diabetic retinal exam [facility] Start: 1973 Hepatitis C screening Hepatitis C screen [facility] Start: 1973 Urine screening for protein Diabetic microalbuminuria test [facility] Start: 1970 HIV screen HIV screen [facility] Phone: Start: 1970 HIV screening HIV screen [facility] Phone: Start: 1967 COVID-19 Vaccine (1) COVID-19 Vaccine (1) [facility] Phone: Start: 1966 DTaP/Tdap/Td vaccine (1 - Tdap) DTaP/Tdap/Td vaccine (1 - Tdap) [facility] Phone: Start: 1965 Diabetic foot examination Diabetic foot exam [facility] Start: 1965 Diabetic retinal exam Diabetic retinal exam [facility] Phone: Start: 1965 Hemoglobin A1c measurement A1C test (Diabetic or Prediabetic) [facility] Phone: Start: 1965 Lipid panel [facility] Start: 1955 Annual Wellness Visit (AWV) Annual Wellness Visit (AWV) [facility] Start: 1955 Hepatitis C screen Hepatitis C screen [facility] Phone: Start: 1955 Hepatitis C screening Hepatitis C screen [facility] Continuous pulse oximetry Pulse oximetry, continuous Respiratory Care Routine Every 4hr until discontinued starting 12/06/2020 [facility] Phone: Comment on above: Every 4hr until discontinued starting Glucose [Mass/volume ] in Serum or Plasma [facility] Phone: Comment on above: 4X Daily (AC & HS) until discontinued st arting 12/06/2020 As Needed until disc ontinued starting 12/06/2020 End: 08-22-2021 Glucose [Mass/volume] in Serum or Plasma POCT Glucose Point of Care Testing STAT One Time for 1 Occurrences starting 08/22/2021 until 08/22/2021 [facility] Comment on above: One Time for 1 Occurrences starting 07/26 until 08/22/2021 Glucose [Mass/volume ] in Serum or Plasma POCT Glucose Point of Care Testing STAT As Needed until discontinued starting 09/05/2021 [facility] Phone: Comment on above: As Needed until discontinued starting Glucose [Mass/volume ] in Serum or Plasma [facility] Phone: Comment on above: 4X Daily (AC & HS) until discontinued st arting 09/05/2021 As Needed until disc ontinued starting 09/05/2021 Incentive spirometry Incentive s pirometry Respiratory Care Routine Every 2hr while awake until discontinued starting 06/04/2019 [facility] Phone: Comment on above: Every 2hr while awake until discontinued starting 06/04/2019 Initiate Oxygen Ther apy Protocol Initiate Oxygen Therapy Protocol Respiratory Care Routine Daily until discontinued starting 06/04/2019 [facility] Phone: Comment on above: Daily until discontinued starting 2019 Oxygen therapy [Mini mum Data Set] Initiate Oxygen Therapy Protocol Respiratory Care Routine Daily until discontinued starting 12/06/2020 [facility] Phone: Comment on above: Daily until discontinued starting 2020 Oxygen therapy [Mini mum Data Set] Initiate Oxygen Therapy Protocol Respiratory Care Routine Daily until discontinued starting 09/05/2021 [facility] Phone: Comment on above: Daily until discontinued starting 2021 Pulse oximetry, continuous Pulse oximetry, continuous Respiratory Care Routine Every 4hr until discontinued starting 06/04/2019 [facility] Phone: Comment on above: Every 4hr until discontinued starting Spirometry panel Incentive janiya metry Respiratory Care Routine Every 2hr while awake until discontinued starting 12/06/2020 [facility] Phone: Comment on above: Every 2hr while awake until discontinued starting 12/06/2020 Surgical Pathology [facility] Work Phone: Comment on above: Release Upon Ordering for 1 Occurrences starting 12/06/2020 ONE TIME for 1 Occur rences starting 06/04/2019 Immunizations Immunization Date Immunization Notes Care Provider Fa cili 11-14-2020 COVID-19, Pfizer, PF , 30mcg/0.3mL Hernandez Tovar MD Work Phone: [facility] Work Phone: 10-27-2020 COVID-19, Pfizer, PF , 30mcg/0.3mL Hernandez Tovar MD Work Phone: [facility] Payers Date Payer Category Payer Self-pay 2022 [employer] ( and others) 2022 Medicare 2018 Medicare MEDICARE MEDICAR E PART A AND B xxxxxxxxxxx 2018-Present [phone] [place] [address] xxxxxxxxxxx [id number] 2017 [employer] ( and others) [facility] xxxxxxxxx 2017-Present xxxxxxxxx [id number] 1959 [employer] ( and others) [id number] [id number] .7.3.609814.315 1959 Medicare [id number] [id number] .7.3.994332.315 1959 Medicare [id number] 1955 Unknown [id number] 2.840.1.208317.3.579.2 .182 1955 Unknown [id number] 2.840.1.510817.3.579.2 .182 1955 Unknown [id number] 2.16.840.1.541271.3.579.2 .182 1955 Unknown [id number] 2.16.840.1.678153.3.579.2 .173 1955 Unknown [id number] 2.16.840.1.787616.3.579.2 .173 1955 Unknown [id number] 2.16.840.1.029657.3.579.2 .173 1955 Unknown [id number] 2.16.840.1.602627.3.579.2 .173 1955 Unknown [id number] 2.16.840.1.612349.3.579.2 .173 1955 Unknown [id number] 2.16.840.1.033302.3.579.2 .593 1955 Unknown [id number] 2.16.840.1.321457.3.579.2 .593 1955 Unknown [id number] 2.16.840.1.673027.3.579.2 .593 1955 Unknown [id number] 2.16.840.1.555704.3.579.2 .593 1955 Unknown [id number] 2.16.840.1.195287.3.579.2 .593 1955 Unknown [id number] 2.16.840.1.223441.3.579.2 .593 1955 Unknown [id number] 2.16.840.1.403774.3.579.2 .593 1955 Unknown [id number] 2.16.840.1.943556.3.579.2 .593 1955 Unknown [id number] 2.16.840.1.565225.3.579.2 .593 1955 Unknown [id number] 2.16.840.1.011822.3.579.2 .593 1955 Unknown [id number] 2.16.840.1.083026.3.579.2 .593 1955 Unknown [id number] 2.16.840.1.352106.3.579.2 .593 1955 Unknown [id number] 2.16.840.1.941378.3.579.2 .593 1955 Unknown [id number] 2.16.840.1.730509.3.579.2 .593 1955 Unknown [id number] 2.16.840.1.893027.3.579.2 .593 1955 Unknown [id number] 2.16840.1.763961.3.579.2 .593 1955 Unknown [id number] 2.0.1.258026.3.579.2 .196 [employer] ( [employer] others) [id number] Medicare Medicare [id number] Unknown [id number] ..1.262272.3.579.2 .531 Social History Date Type Detail Facility Start: 11-25-2020 End: 08-22-2021 Tobacco smoking status [facility] Former smoker [facility] End: 05-27-1984 History of tobacco use Current smoker [facility] Start: 11-25-2020 End: 08-22-2021 Tobacco use and exposure Never used [facility] Start: 11-25-2020 End: 12-06-2021 Alcohol intake Ex-drinker (finding) [facility] Work Phone: Start: 11-25-2020 History SDOH Financial 5 [facility] Work Phone: Start: 11-25-2020 History SDOH Food Worry 1 [facility] Work Phone: Start: 1955 Sex Assigned At Not on file M [employer] Work Phone: Start: 08-12-2021 End: 12-06-2021 Exposure to SARS-CoV-2 (event) Not sure [facility] Start: 02-16-2021 Tobacco smoking stat us [facility] Never smoked tobacco [facility] Sex Assigned At Sex Assigned At Bir th [facility] Other Start: 1955 Sex Assigned At Male F [facility] Medical Equipment Procedure Code Equipment Code Equipment Original Text Equipment Identifier Dates Graft Canc Chip 1.7fe65pl 15cc - [id number] Start: 06-04-2019 [employer] Bon e Matrix 5cc - [id number] Start: 06-04-2019 Screw Polyaxial Reline-O 2s 6.5x55mm [id number] Start: 06-04-2019 Screw Lk Reline Opn Tulip 5.5mm [id number] Start: 06-04-2019 Impl Cage Spine Mas 28 Mm Posterior [id number] Start: 06-04-2019 Impl Spine Jose Armando R volodymyr-O 5.5x75mm [id number] Start: 06-04-2019 Sys Fix Reline 0 x Conn 40 50mm 5.5lp Adj [id number] Start: 06-04-2019 Screw O Reline [id number] St art: 12-06-2020 Kit Bne Grft M R hbmp-2 4.2mg Inj 5ml Contain Ndl 20ga [id number] Start: 12-06-2020 Cage Spnl Lordtc [id number] Mm Crv Coalesce [id number] Start: 12-06-2020 Graft Bne Sub 30 cc 1.7-10mm Canc Chip Morselized Frz Dry - [id number] Start: 12-06-2020 Screw Spnl L55mm Dia6.5mm Post Thoracolumbosacral Polyax 2s [id number] Start: 12-06-2020 Screw Spnl Dia5. 5mm Opn Tulip Sg Reline [id number] Start: 12-06-2020 Jose Armando Spnl Lordtc 5.5x90 Mm Ti Reline-O [id number] Start: 12-06-2020 Connector Spnl C rss Lo Prof Adj Reline-O 5.5 X 45-65 Mm [id number] Start: 12-06-2020 Graft Bne Sub 30 cc 1.7-10mm Canc Chip Morselized Frz Dry - [id number] Start: 12-06-2020 Baseplate Duc D ia25mm +3mm Lat Offset Augmented Aequalis - [id number] Start: 09-05-2021 Screw Bone L35mm Dia6.5mm Ti St Full Thrd Ctrl For Duc - [id number] Start: 09-05-2021 Screw Bone L30mm Dia5mm Ti St Full Thrd Periph For Duc - [id number] Start: 09-05-2021 Screw Bne Periph 5x38 Mm Shldr Reversed Ns Aequalis Perform - [id number] Start: 09-05-2021 Sphere Duc Dia3 9mm +3mm Lat Offset Reversed Aequalis - [id number] Start: 09-05-2021 Insert Shldr C D ia39mm Thk+6mm 7.5deg Reversed Aequalis - [id number] Start: 09-05-2021 Tray Hum Thk+0mm 0mm Offset Cntr Reversed Aequalis Ascend - [id number] Start: 09-05-2021 Insert Shldr C D ia39mm Thk+6mm 7.5deg Reversed Aequalis - [id number] Start: 09-05-2021 Stem Hum L74mm D ia3b 132.5deg Std Shldr Ptc Aequalis Ascend - [id number] Start: 09-05-2021 Clinical Notes 06-04-2019 to 02-04-2023 Note Date & Type Note Facility 02-04-2023 Evaluation note Encounter Date Diagnosis Assessment Notes Jan, Medicare annual wellness visit, initial (ICD-10 - Z00.00) Personalized health advice was given to the beneficiary including a written plan for screenings discussed and provided. Advanced care planning reviewed and/or information given as requested. Additional counseling was provided here today in regards to, [ ]. The above visit was performed by [ ] under direct supervision of [ ]. Document reviewed and amended by provider signed below. Jan, Balance disorder (ICD-10 - R26.89) BP is low, not presently on meds - improve hydration and electrolytes. Pt agrees to neurology referral. [facility] Other 06-09-2023 Evaluation note* Encounter Date Diagnosis Assessment Notes Treatment Notes Treatment Clinical Notes Oct, Hyperglycemia due to type 2 diabetes mellitus (ICD-10 - E11.65) Overdue for labs. Encourage better glucose monitoring for control. Oct, Lumbar back pain with radiculopathy affecting left lower extremity (ICD-10 - M54.16) Chronic problem, radiculopathy likely contributing to falls. F/u w pain management. Oct, Essential (primary) hypertension (ICD-10 - I10) Hypotensive today. Hold bp pain and call next week w home readings. [facility] [employer] Other 04-25-2023 NoteCONSULTATION CONSULTATION DATE: 09/18/2022 TO: Mike Yuan M.D. CHIEF COMPLAINT: Includes severe hip pain, worse on the right than the left side. HISTORY: Patient reports having 5-7/10 pain in his lower back and hip area, worse on the right than the left side. He reports the pain is increased with activities such as standing, walking and performing transitioning maneuvers. He feels most comfortable in the semi-recumbent position. Denies any change in bowel and bladder habits or new sensorimotor changes in the lower extremities. EXAM: Notable for patient having dysesthesias and hyperesthesia along the distribution of the lateral cutaneous branch of the iliohypogastric nerve, occurring bilaterally, more significant on the right than the left side. The patient also had a positive FABERs sign, worse on the right than the left side. IMPRESSION: 1. 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 2. Bilateral hip joint pain, right worse than left. RECOMMENDATIONS: I have recommended bilateral hip films. Placed him on baclofen for myofascial dysfunction, 10 mg pills, half a pill in the morning, half a pill in the afternoon, and half a pill to one pill at bedtime. I have asked him to continue with Lyrica 100 mg b.i.d. Pending his response to the change in medication and review of his imaging studies, we may consider proceeding with a diagnostic injection of bilateral lateral cutaneous branch of the iliohypogastric nerve under fluoroscopic guidance. We will see the patient back in the office in approximately two weeks' time or sooner if needed. As part of providing excellent, safe, comprehensive care, the following was completed at our patient's visit: 1. A medication reconciliation and review to ensure accurate knowledge of current/active medications, including asking our patients to inform us about any [id number] medications or herbal remedies/nutritional supplements/alternative remedies. 2. A review to specifically ensure our patients have had annual screening for: elevated body mass index (BMI, see intake chart for exact total), tobacco use, screening for depression, and screening for unhealthy alcohol use. When screening is concerning, patients are provided with education and the specific recommendation to discuss the concerning health issue and treatment options with their primary care provider.[id number] [facility] Cardiology Clinic Note Chief Complaint: pt complains of dizziness and dyspnea on exertion HPI: Deondre Lr is a 67 y.o. male With a history of coronary artery disease, hypertension, dyslipidemia here for preoperative evaluation PMHx: CAD (noted as mild per 2014 cardiology consult note), PAF (not on AC d/t?), IRBBB, HTN, former smoker, DM He requires surgery for his right shoulder He complains of exertional shortness of breath, he denies chest pain. He has no orthopnea or paroxysmal tunnel dyspnea. No leg swelling. Cardiology ROS:Review of Systems Cardiovascular: Positive for dyspnea on exertion. Neurological: Positive for dizziness. Past Medical History He has no past medical history on file. Surgical History He has no past surgical history on file. Social History He has no history on file for tobacco use, alcohol use, and drug use. Family History No family history on file. Allergies Patient has no known allergies. Medications Current Outpatient Medications: adalimumab (Humira) 40 mg/0.8 mL syringe kit prefilled syringe, Inject 0.8 mL every 2 weeks by subcutaneous route., Disp: , Rfl: amitriptyline (Elavil) 50 mg tablet, Take 1 tablet by mouth at bedtime., Disp: , Rfl: aspirin 81 mg EC tablet, Take 1 tablet every day by oral route., Disp: , Rfl: diclofenac (Voltaren) 50 mg EC tablet, Take 1 tablet by mouth in the morning, afternoon, and at bedtime., Disp: , Rfl: DULoxetine (Cymbalta) [address] capsule, Take 1 capsule by mouth in the morning., Disp: , Rfl: fentaNYL (Duragesic) 25 mcg/hr, place 1 patch every 72 hours, Disp: , Rfl: ferrous sulfate 325 (65 Fe) MG tablet, Take 325 mg by mouth., Disp: , Rfl: flecainide (Tambocor) 100 mg tablet, Take 100 mg by mouth., Disp: , Rfl: folic acid (Folvite) 1 mg tablet, Take 1 mg by mouth., Disp: , Rfl: furosemide (Lasix) 40 mg tablet, Take 40 mg by mouth., Disp: , Rfl: HYDROcodone-acetaminophen (Wrens) 5-325 mg tablet, take 1 tablet by mouth twice a day if needed for INFLAMMATION OF SACROILIAC JOINT, Disp: , Rfl: lisinopril 10 mg tablet, Take 10 mg by mouth., Disp: , Rfl: metoprolol succinate XL (Toprol-XL) 50 mg 24 hr tablet, Take 50 mg by mouth., Disp: , Rfl: omeprazole (PriLOSEC) [address] capsule, Take 20 mg by mouth., Disp: , Rfl: sertraline (Zoloft) 100 mg tablet, Take 100 mg by mouth., Disp: , Rfl: sulfaSALAzine (Azulfidine) 500 mg tablet, Take 1,000 mg by mouth., Disp: , Rfl: Last Recorded Vitals Patient Vitals for the past 24 hrs: BP Pulse SpO2 Weight 06/27/22 1435 109/72 69 98 % 78.9 kg (174 lb) Physical Examination: GENERAL: alert and oriented x3, well developed, in no acute distress. HEAD: atraumatic, normocephalic. EYES: ROBYN, EOMI. NECK: trachea midline, no JVD present, no carotid bruits present. CARDIAC: S1, S2 present. RRR. No murmur, rubs, or gallops. RESPIRATORY: CTAB, no increased effort of breathing, no rales, rhonchi, or wheezing. ABDOMEN: soft, nontender, nondistended. EXTREMITIES: no lower extremity edema, peripheral pulses are 2+ bilaterally. No rash/skin discoloration present. NEURO: strength/sensation equal and symmetric in bilateral upper and lower extremities. PSYCH: appropriate mood, affect, and judgement. Investigations: TESTING: ECHO 3/22/22: 1. Normal ventricular function, EF 65% 2. There is hypertrophy of the basal ventricular septum with no evidence of outflow tract obstruction 3. No significant valvular dysfunction 4. Normal right sided pressures 5. No pericardial effusion CXR (08/02/21) FINDINGS: No acute airspace infiltrate. No pneumothorax or pleural effusion. The cardiomediastinal silhouette is within normal limits. Vertebroplasty changes in the thoracic spine. IMPRESSION: No acute cardiopulmonary findings. EKG (08/02/21) Normal sinus rhythm Left axis deviation Incomplete right bundle branch block Minimal voltage criteria for LVH, may be normal variant Abnormal ECG No previous ECGs available Confirmed by Tad Mack MD ([id number]) on 08/02/2021 8:08:39 PM Labs 08/02/21: cr. 1.27, BUN 28, K 4.9, GFR 57 Hgb 12.3, hct 37.7, plt 220 ECHO (05/05/2019) Global left ventricular systolic function is normal (Visually estimated EF 55%). The left ventricle is normal size. Left ventricular wall thickness is normal. No regional wall motion abnormality. Normal diastolic function. Normal right ventricular systolic function. The right ventricle is normal in size. The left atrium is mildly enlarged. The right atrium is normal in size. No pericardial effusion. No significant valvular abnormalities No significant change when compared to the previous study 10/22/2013 NM stress test 2016: normal myocardial perfusion scan Assessment: 1. Pre-surgery evaluation - 2. Coronary atherosclerosis - -Noted as mild per cardiology consult note in 2013, unable to find report I25.10: Atherosclerotic heart disease of [place] coronary artery withou (more content not included)...[facility]01-23-2023 NoteThis report has been cancelled.[facility]10-06-2022 Note CONSULTATION CONSULTATION DATE: 03/01/2022 This is a 67-year-old gentleman who returns to the clinic status post #1 bilateral MBB of L1, L2 and L3, L4. The patient reports he received 80% relief for one day, 50% the following. This was completed on 02/13/2022. The patient does ambulate with a cane and states since the procedure, in the days following, he was able to work in the yard, picking up sticks and picking up around the house. This is functional improvement from his prior visits. Today he rates his pain 8 out of 10, described as deep throb. Activities such as twisting, pulling, pushing, walking, bending, lifting aggravate his pain. Current medications include amitriptyline 25 mg q. day, Cymbalta, 50 mg q. day, diclofenac 75 mg b.i.d., Lyrica 100 mg t.i.d., Wrens 5/325 b.i.d. The patient is also under the care of an orthopedic physician in [place] and received a right shoulder injection today. REVIEW OF SYSTEMS, PAST MEDICAL HISTORY, ALLERGIES AND IMAGES: Have been reviewed and noted in the chart. PHYSICAL EXAM: VITAL SIGNS: Blood pressure 97/63, heart rate is 70, temperature is 97.8. Height is 5'5 , weighs 85 kg. GENERAL APPEARANCE: Pleasant, appropriate, appears very sleepy today FOCUSED EXAM: BACK: Guarded in lateral rotation and in flexion/extension. Paravertebral muscles are taut but non-spasmodic with no trigger points identified. Rosita's point mildly tender to the right with referral to the hip. Negative Kacey's and compression test. MUSCULOSKELETAL: Diffuse muscle atrophy noted bilaterally, patient does ambulate with a slow, antalgic gait with a cane. NEUROLOGICAL: Patchy hypesthesia noted along bilateral buttock and lower extremities along the lateral aspect to mid-thigh. Blunt patellar reflexes. DIAGNOSIS: Lumbar degenerative disk disease, lumbar spondylosis, spinoaxial lower back pain, lumbar neuritis. PLAN: We will move forward with to authorize #2 bilateral MBB of L1, L2 and L3, L4. We will decrease his Lyrica to b.i.d. 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 He is encouraged to take his vitamins and to continue with daily exercises. The patient agreed to move forward with the procedure and will be followed in the clinic thereafter.[id number] NoteCONSULTATION CONSULTATION DATE: 01/25/2022 HISTORY OF PRESENT ILLNESS: This is a 66-year-old gentleman returning to the clinic for a two month follow up for his chronic lower back pain. Patient also complains of polyarthralgia to bilateral shoulders, elbow, knees and to his lower back. The patient did have a left shoulder replacement in August of this year, and approximately two months ago, he tripped, fell and re-broke his humerus and his left shoulder. He is currently in a sling and is awaiting the [facility] to send a referral to physical therapy. He does complain of diffuse lower back pain today that is no-radiating in nature. His most recent imaging does show bilateral foraminal narrowing as well as multilevel disc arthropathy. The patient reports all activity aggravates his pain. He is 8/10 today. Medications include Wrens 5/325 b.i.d., Lyrica 100 mg t.i.d., duloxetine 60 mg daily, amitriptyline 25 mg daily, diclofenac 50 mg b.i.d. The patient states he has been out of his Lyrica for multiple weeks and was taking an unknown nerve pill prescribed to him by the [facility] as replacement until he could be seen today in the clinic. He does ambulate with a cane. Patient's REVIEW OF SYSTEMS / PAST MEDICAL HISTORY / ALLERGIES and IMAGES have been reviewed and they are noted on the chart. PHYSICAL EXAM: VITAL SIGNS: Blood pressure 100/60, heart rate is 92. Temperature is 97.3. He is 5'5 and weighs 83 kg. GENERAL APPEARANCE: Pleasant, appropriate, no acute distress. FOCUSED EXAM - BACK: Range of motion is guarded in lateral rotation and flexion/extension. Paravertebral muscles are taut but non-spasmodic. Reproduction of spinal axial pain noted to direct compression along the lumbar facets with pain that does not radiate below the knees. Fullness is palpated, which is indicative of facet arthropathy, lumbar spondylosis. Rosita's point mildly tender to the right. Negative FABERs and negative compression tests. MUSCULOSKELETAL: Motor is 4/5 bilaterally with muscle atrophy to bilateral lower extremities. Multilevel polyarthralgia to anterior aspect of bilateral knees with no crepitus appreciated. Fullness to bilateral elbows with no obvious effusion. NEUROLOGICAL: Diffuse neuropathy to bilateral lower extremities to the level of the toes. DIAGNOSIS: Lumbar spondylosis, lumbar degenerative disc disease, lumbar neuritis, polyarthralgia and lumbar radiculitis. PLAN: We will give him a refill of his Lyrica 100 mg t.i.d. and increase his diclofenac 75 mg b.i.d. I did discuss with the patient regarding seeing a jewelry facer, and he states he believes he has seen a jewelry facer at the [facility] in the past. In regards to his back, I explained the benefits of the rhizotomy series and which the patient agrees to try. We will move forward with the #1 bilateral MBB to L1, L2 and L3, L4 which is above the level of his fusion. Patient will be brought to the clinic post procedure and agrees to move forward.[facility] [id number] Hospital Discharge instructions* Instructions* Skye Garcia MD - 12/06/2021 Remain in splint. Tylenol as needed for pain. Wrens in place Tylenol for pain not controlled with Tylenol. With orthopedics tomorrow. Return immediately if you develop any worsening redness pain swelling numbness or tingling of your left forearm hands or fingers or any other acute concerns * Attachments The following attachments cannot be sent through Care Everywhere. * Arm Fracture (Emirati) documented in this encounterBON [facility]ENTERU.[facility] Phone: [phone] [phone] NoteCONSULTATION CONSULTATION DATE: 11/23/2021 This is a pleasant 66-year-old gentleman returned to the clinic status post lumbar epidural steroid injection completed on 11/07/2021. The patient got 90% relief for one day but the following day the pain returned to his baseline. Today he complains of 9 out of 10 pain in his lower back and hips. The patient had lumbar fusion with screw placement in 2019 and the patient states since that procedure his back pain has increased. Current medications include Diclofenac 50 mg b.i.d., Wrens 5/325 b.i.d., Lyrica 100 mg t.i.d., amitriptyline and duloxetine. The patient reports all activities aggravate his back and he uses a cane to ambulate. The use of heat does decrease his pain as does sitting. REVIEW OF SYSTEMS, PAST MEDICAL HISTORY, ALLERGIES AND IMAGES: Have been reviewed and noted in the chart. PHYSICAL EXAM: VITAL SIGNS: Blood pressure 115/70, heart rate is 95, temperature is 98. Height is 5'5 , weighs 73.7 kg. GENERAL APPEARANCE: Pleasant, appropriate and in no acute distress. FOCUSED EXAM: BACK: Range of motion is slightly guarded but functional lateral rotation and flexion/extension. Paravertebral muscles are taut and non-spasmodic. Point tenderness noted to compression of the lumbar facets of L2, L3 and L4 bilaterally. Rosita's point is nontender. Pain does radiate below the knee bilaterally. MUSCULOSKELETAL: Motor is intact, 4 out of 5 bilaterally. The patient does use a cane to ambulate. Muscle atrophy noted to bilateral lower extremities. NEUROLOGICAL: Patchy hypesthesia noted along L4, L5 bilateral lower extremities to the dorsum of the foot. Blunted bilateral patellar Achilles reflexes. DIAGNOSIS: Lumbar radiculitis, lumbar degenerative disk, lumbar spondylosis, status post fusion. PLAN: [facility] and [facility] to 300 mg b.i.d. to help capture the neuropathic pain secondary to foraminal stenosis. The patient was asked to call in four weeks' time with an update on his pain and efficacy of the Lyrica. All other medications will be kept at the same dose and frequency at this time. Vitamin and nutrition importance was discussed with him. The patient will be seen in the clinic in four months' time unless otherwise indicated. The patient agrees with the plan of care and all questions were answered. [facility] Signed and Approved by: DEVAN MAGALLANES . 11/30/2021 16:28:00[facility]04-13-2022 History of Present illness Narrative* Claudia Dasilva RN - 09/06/2021 2:01 PM EDT Reviewed discharge instructions with patient. All questions answered at this time. Patient waiting for ride, then will leave via private auto at discharge. * Brigid Lanza PTA - 09/06/2021 1:25 PM EDT Physical Therapy Facility/Department: [facility] Daily Treatment Note NAME: Deondre Lr : 1955 Date of Service: 09/06/2021 Discharge Recommendations: Continue to assess pending progress,Outpatient PT Assessment Treatment Diagnosis: Difficulty walking Prognosis: Good Decision Making: Medium Complexity PT Education: Goals;General Safety;PT Role;Home Exercise Program Patient Education: Pt educated on importance of daily exercises and ambulation, pt acknowledges understanding REQUIRES PT FOLLOW UP: Yes Activity Tolerance Activity Tolerance: Patient limited by fatigue;Patient limited by pain Patient Diagnosis(es): The encounter diagnosis was Post-op pain. has a past medical history of A-fib ([facility]), CAD (coronary artery disease), Chronic back pain, Chronic headaches, Diabetes (HCC), Hypertension, Restless leg syndrome, Rheumatoid arthritis (HCC), S/P reverse total shoulder arthroplasty, left, and Sleep apnea. has a past surgical history that includes Spine surgery; shoulder surgery; lumbar fusion (N/A, 06/04/2019); lumbar fusion (N/A, 12/06/2020); Shoulder Arthroplasty (Left, 09/05/2021); Ear surgery (Bilateral, 1989); and Kidney donation (Left, 1994). Restrictions Restrictions/Precautions Restrictions/Precautions: General Precautions,Fall Risk Subjective General Chart Reviewed: Yes Response To Previous Treatment: Patient with no complaints from previous session. Family / Caregiver Present: No Referring Practitioner: Zenia Molina MD Subjective Subjective: Patient reports L shoulder pain 02/03. OT just completed assisting patient with dressingin preparation for home. Orientation Orientation Overall Orientation Status: Within Functional Limits Cognition Objective Bed mobility Comment: Pt sitting EOB, just completing OT treatment Transfers Sit to Stand: Stand by assistance Stand to sit: Stand by assistance Ambulation Ambulation?: Yes Ambulation 1 Surface: level tile Device: Single point cane Assistance: Stand by assistance Gait Deviations: Slow Beto Distance: 10'x1 Comments: Pt declined at this time d/t jsut returning to bed Exercises Comments: HEP review Goals Short term goals Time Frame for Short term goals: 20 days Short term goal 1: Patient to complete all transfers with mod. Ind and no LOB to decrease fall risk. Short term goal 2: Patient to ambulate 150ft with SPC and SUP with no LOB to decrease fall risk. Short term goal 3: Patient to tolerate 20-30 min of ther ex/act to improve functional strength. Short term goal 4: Patient to have good static standing balance to decrease fall risk. Plan Plan Times per week: 7 Times per day: Twice a day (daily on weekends) Current Treatment Recommendations: Strengthening,Neuromuscular Re-education,Home Exercise Program,ROM,Safety Education & Training,Balance Training,Endurance Training,Patient/Caregiver Education & Training,Functional Mobility Training,Transfer Training,Gait Training,Stair training Safety Devices Type of devices: Call light within reach,Patient at risk for falls,Left in chair,Nurse notified,Allfall risk precautions in place Therapy Time Individual Concurrent Group Co-treatment Time In 1309 Time Out 1326 Minutes 17 Brigid Lanza PTA * Kristy Louis, OT - 09/06/2021 1:21 PM EDT Occupational Therapy Facility/Department: [facility] Daily Treatment Note NAME: Deondre Lr : 1955 Date of Service: 09/06/2021 Discharge Recommendations: Continue to assess pending progress Assessment OT Education: Precautions;ADL Adaptive Strategies;Equipment Patient Education: Pt was educated on AE/DME, compensatory dressing techniques and reminded on how to andrae/doff sling. Barriers to Learning: none Activity Tolerance Activity Tolerance: Patient Tolerated treatment well Safety Devices Safety Devices in place: Yes Type of devices: All fall risk precautions in place;Call light within reach;Left in bed Patient Diagnosis(es): The encounter diagnosis was Post-op pain. has a past medical history of A-fib ([facility]), CAD (coronary artery disease), Chronic back pain, Chronic headaches, Diabetes ([facility]), Hypertension, Restless leg syndrome, Rheumatoid arthritis (HCC), S/P reverse total shoulder arthroplasty, left, and Sleep apnea. has a past surgical history that includes Spine surgery; shoulder surgery; lumbar fusion (N/A, 06/04/2019); lumbar fusion (N/A, 12/06/2020); Shoulder Arthroplasty (Left, 09/05/2021); Ear surgery (Bilateral, 1989); and Kidney donation (Left, 1994). Restrictions Restrictions/Precautions Restrictions/Precautions: General Precautions,Fall Risk Subjective General Chart Reviewed: Yes Patient assessed for rehabilitation services?: Yes Family / Caregiver Present: No Subjective Subjective: Pt reports 9/10 pain in L shoulder. General Comment Comments: Pt side lying on R side in bed upon entry, agreeable to OT tx and getting dressed in prepfor discharge home. Orientation Objective ADL UE Dressing: Maximum assistance LE Dressing: Moderate assistance Additional Comments: Pt required max A for UB dressing and mod A for LB dressing. Pt required several verbal reminders to not use LUE throughout dressing. Plan Plan Times per week: 7 Times per day: Daily Current Treatment Recommendations: Strengthening,Balance Training,Functional Mobility Training,Endurance Training,Self-Care / ADL,Safety Education & Training,Patient/Caregiver Education & Training,Equipment Evaluation, Education, & procurement G-Code OutComes Score AM-PAC Score Goals Short term goals Time Frame for Short term goals: 21 visits Short term goal 1: Patient to be educated on one handed techniques for self care to maintain L shoulder precautions to improve ADL independence. Short term goal 2: Patient to be educated on d/c folder, AE and DME to ensure safe return home. Short term goal 3: Patient to complete self care routine c SBA to supervision to improve ADL indep. Short term goal 4: Patient to be educated on HEP to include elbow, forearm, wrist and digit AROM and light logistics team lead strengthening. Therapy Time Individual Concurrent Group Co-treatment Time In 1250 Time Out 1317 Minutes 27 Kristy Louis OT * Kristy Louis OT - 09/06/2021 10:42 AM EDT [facility] Inpatient/Observation/Outpatient Rehabilitation Date: 09/06/2021 Patient Name: Deondre Lr [] Inpatient Acute/Observation [] Outpatient : 1955 [] Pt no showed for scheduled appointment [x] Pt refused/declined therapy at this time due to: Not wanting to get out of bed, requested to come back after lunch for dressing before discharge. [] Pt cancelled due to: [] No Reason Given [] Sick/ill [] Other: Therapist/Skeins Yarn Examiner will attempt to see this patient, at our earliest opportunity. Kristy Louis OT Date: 09/06/2021 * Brigid Lanza PTA - 09/06/2021 10:18 AM EDT Physical Therapy Facility/Department: [facility] Daily Treatment Note NAME: Deondre Lr : 1955 Date of Service: 09/06/2021 Discharge Recommendations: Continue to assess pending progress,Outpatient PT Assessment Treatment Diagnosis: Difficulty walking Prognosis: Good Decision Making: Medium Complexity PT Education: Goals;PT Role Patient Education: Pt educated on importance of daily exercises and ambulation, pt acknowledges understanding REQUIRES PT FOLLOW UP: Yes Activity Tolerance Activity Tolerance: Patient limited by fatigue;Patient limited by pain Patient Diagnosis(es): The encounter diagnosis was Post-op pain. has a past medical history of A-fib ([facility]), CAD (coronary artery disease), Chronic back pain, Chronic headaches, Diabetes ([facility]), Hypertension, Restless leg syndrome, Rheumatoid arthritis ([facility]), S/P reverse total shoulder arthroplasty, left, and Sleep apnea. has a past surgical history that includes Spine surgery; shoulder surgery; lumbar fusion (N/A, 06/04/2019); lumbar fusion (N/A, 12/06/2020); Shoulder Arthroplasty (Left, 09/05/2021); Ear surgery (Bilateral, 1989); and Kidney donation (Left, 1994). Restrictions Restrictions/Precautions Restrictions/Precautions: General Precautions,Fall Risk Subjective General Chart Reviewed: Yes Response To Previous Treatment: Patient with no complaints from previous session. Family / Caregiver Present: No Referring Practitioner: Zenia Molina MD Subjective Subjective: Patient reports L shoulder pain, did not numerically rate. Pt states he just got back into bed, has ice on shoulder, and did not wish to get up for a walk at this time. Orientation Orientation Overall Orientation Status: Within Functional Limits Cognition Objective Ambulation Ambulation?: No Ambulation 1 Comments: Pt declined at this time d/t jsut returning to bed Exercises Straight Leg Raise: x15 Heelslides: x15 Hip Abduction: x15 Knee Short Arc Quad: x15 Ankle Pumps: x15 Comments: Pt completed above listed ex in supine position. Several short rest breaks d/t fatigue Goals Short term goals Time Frame for Short term goals: 20 days Short term goal 1: Patient to complete all transfers with mod. Ind and no LOB to decrease fall risk. Short term goal 2: Patient to ambulate 150ft with SPC and SUP with no LOB to decrease fall risk. Short term goal 3: Patient to tolerate 20-30 min of ther ex/act to improve functional strength. Short term goal 4: Patient to have good static standing balance to decrease fall risk. Plan Plan Times per week: 7 Times per day: Twice a day (daily on weekends) Current Treatment Recommendations: Strengthening,Neuromuscular Re-education,Home Exercise Program,ROM,Safety Education & Training,Balance Training,Endurance Training,Patient/Caregiver Education & Training,Functional Mobility Training,Transfer Training,Gait Training,Stair training Safety Devices Type of devices: All fall risk precautions in place,Call light within reach,Patient at risk for falls,Left in bed,Nurse notified Therapy Time Individual Concurrent Group Co-treatment Time In 1000 Time Out 1017 Minutes 17 Brigid Lanza PTA * Apollo Carter RD, LD - 09/06/2021 8:21 AM EDT Nutrition Assessment Type and Reason for Visit: Initial,Positive Nutrition Screen Nutrition Recommendations/Plan: Encourage 3 meals and increased oral fluids Nutrition Assessment: Predicted suboptimal nutrient intakes r/t altered GI status, 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 Reports eating once daily. Weight declines are subsignificant. Did reinforce 3 meals daily and increased use of oral fluids to aid recovery from shoulder. Malnutrition Assessment: Malnutrition Status: At risk for malnutrition (Comment) Nutrition Related Findings: no malnutrition indices Current Nutrition Therapies: ADULT DIET; Regular; 4 carb choices (60 gm/meal) Anthropometric Measures: Height: 5' 5 (165.1 cm) Current Body Wt: 176 lb (79.8 kg) BMI: 29.3 Nutrition Diagnosis: Predicted inadequate energy intake related to altered GI function as evidenced by poor intake priorto admission Lab Results Component Value Date NA 141 09/06/2021 K 4.0 09/06/2021 CL 107 09/06/2021 CO2 22 09/06/2021 BUN 14 09/06/2021 CREATININE 1.16 09/06/2021 GLUCOSE 171 (H) 09/06/2021 CALCIUM 8.0 (L) 09/06/2021 PROT 7.6 08/02/2021 LABALBU 4.7 08/02/2021 BILITOT 0.30 08/02/2021 ALKPHOS 154 (H) 08/02/2021 AST 20 08/02/2021 ALT 24 08/02/2021 LABGLOM >60 09/06/2021 GFRAA >60 09/06/2021 Nutrition Interventions: Food and/or Nutrient Delivery: Continue Current Diet Nutrition Education/Counseling: Education initiated Coordination of Nutrition Care: Continue to monitor while inpatient Goals: PO >75% meals x 3 daily Nutrition Monitoring and Evaluation: Behavioral-Environmental Outcomes: None Identified Food/Nutrient Intake Outcomes: Food and Nutrient Intake Physical Signs/Symptoms Outcomes: Weight,Biochemical Data Discharge Planning: No discharge needs at this time Contact: [phone] * Shmuel Wyatt, DEPARTMENT DIRECTOR - INDUSTRIAL CLEANING TECHNICIAN - 09/06/2021 7:26 AM EDT Department of Orthopedic Surgery Progress Note Subjective: Overall, patient doing well without any significant issues or concerns. He reports painof 7 out of 10 currently. Pain is localized to the shoulder. Pain is worse with increased movement of shoulder. Better w/ rest and oral pain medications. He denies any N/T. Vitals VITALS: BP 99/60 Pulse 71 Temp 98 F (36.7 C) (Temporal) Resp 16 Wt 176 lb (79.8 kg) SpO2 93% BMI 29.29 kg/m PHYSICAL EXAM: General: in no apparent distress, well developed and well nourished, alert and oriented times 3 Left Upper Extremity Incision: Aquacel dressing in place, clean, dry and intact. No significant drainage or bleeding noted. Neurologic: Moving upper extremity as appropriate following sugery. Motor function intact. Sensation grossly intact to light touch. Vascular: present 2+ radial pulse. Pulse normal rhythm with palpation Abnormal Exam findings: Calf tenderness right. Negative Leah's. LABS: Hgb: Lab Results Component Value Date HGB 8.9 09/06/2021 ASSESSMENT AND PLAN: Post operative day 1 status post reverse left total shoulder arthroplasty and left shoulder open biceps tenodesis. 1: Continue sling 2: Continue Deep venous thrombosis prophylaxis. Aspirin 325 mg daily for 4 weeks 3: Right calf pain. Order STAT venous u/s to r/o DVT 4: Physical therapy. Has outpatient PT scheduled at [facility] 5: D/C Plan: Home 6: Continue Pain Control. Wrens 5-325, 1-2 tabs every 4 hours prn severe pain. MME greater than 30 given patient's chronic pain 7: F/ul in 2 weeks * Colin Younger RN - 09/05/2021 7:35 PM EDT Pt alert and oriented x4 resting in bed at this time. Vitals and assessment completed. Pt rates 7/10 pain to L shoulder. See MAR. Pt denies any further needs. Call light is within reach. Will continue to monitor. * RADHA Fritz - 09/05/2021 2:49 PM EDT Discussed discharge plans with the patient. Patient is a 66 year old male here with Left reverse total shoulder arthroplasty. He is alert , oriented , and pleasant during our conversation. Patient is and lives at home with his . He uses a cane for ambulation. The patient's does the cooking and the house cleaning. He was independent with his ADL's prior to surgery. Patient manages his own medications and drives. He has no out side services in the home. His PCP is Dr. Mike Yuan MD. He has medical insurance that helps with medication costs. Patientserved in the [employer]. The discharge plan is home with out-patient therapy at [facility]. This was set up prior to surgery. He does not have advance directives but his would make decisions if he could not. COMPLAINTS COORDINATOR to monitor andassist with any needs or concerns as they arise. RADHA Fritz * Luz Marina Kerr RN - 09/05/2021 2:33 PM EDT Hospitalist consult called to Dr. Jenkins at this time. * Luz Marina Kerr RN - 09/05/2021 1:15 PM EDT Patient arrived on floor at this time, admitted to [facility] room 302. Report received at bedside from surgery RN. Blood pressure slightly elevated, vitals otherwise WNL. Patient is complaining of 3 out of 10 surgical pain in his shoulder and 6 out of 10 chronic pain in his lower back. SpO2 97% on 2 L via nasal cannula. Patient is alert and oriented x4, has numbness/tingling to his LUE due to a block.Aquacell dressing on left shoulder surgical incision clean, dry and intact with no active drainage.Capillary refill less than 3 seconds and pulse palpable to LUE. Admission navigator also reviewed with patient at this time as charted. Patient is resting in the bed, will continue to monitor. * Pamella Singh RN - 09/05/2021 1:05 PM EDT [facility], room 302 and report given to Luz Marina. * Pamella Singh RN - 09/05/2021 12:59 PM EDT Discharge Criteria Inpatients must meet Criteria 1 through 7. All other patients are either YES or N/A. If a NO is chosen then Anesthesia or Surgeon must be notified. 1. Minimum 30 minutes after last dose of sedative medication, minimum 120 minutes after last dose of reversal agent. Yes 2. Systolic BP stable within 20 mmHg for 30 minutes & systolic BP between 90 & 180 or within 10 mmHg of baseline. Yes 3. Pulse between 60 and 100 or within 10 bpm of baseline. Yes 4. Spontaneous respiratory rate >/= 10 per minute. Yes 5. SaO2 >/= 95 or >/= baseline. Yes 6. Able to cough and swallow or return to baseline function. Yes 7. Alert and oriented or return to baseline mental status. Yes 8. Demonstrates controlled, coordinated movements, ambulates with steady gait, or return to baseline activity function. N/A 9. Minimal or no pain or nausea, or at a level tolerable and acceptable to patient. N/A 10. Takes and retains oral fluids as allowed. N/A 11. Procedural / perioperative site stable. Minimal or no bleeding. N/A 12. If GI endoscopy procedure, minimal or no abdominal distention or passing flatus. N/A 13. Written discharge instructions and emergency telephone number provided. N/A 14. Accompanied by a responsible adult. N/A * Pamella Singh RN - 09/05/2021 12:42 PM EDT Patient with left droopy eyelid and Jj aware; d/t block. May last up to 24 hours and Mariza discussed this with patient also. She stated he may get drooping of the mouth also. * Pamella Singh RN - 09/05/2021 12:35 PM EDT Rescue blocked completed at this time. Patient now rating pain 3/10 to left shoulder and 6/10 to low back. Patient visibly more comfortable. JUDY Dawkins spoke with patient regarding not being able to help with back pain and he implies understanding. * Pamella Singh RN - 09/05/2021 12:22 PM EDT Jorge CRNA's starting rescue block to left shoulder at this time. * Pamella Singh RN - 09/05/2021 11:44 AM EDT Anesthesia notified of patient's complaints of pain and no improvement with ordered pain meds that have been given. * Pamella Singh RN - 09/05/2021 11:25 AM EDT Xray completed and shown to . 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 Procedure Type of Study: Veins: Lower Extremities DVT Study, Venous Scan Lower Right. Indications for Study:Calf tenderness. Patient Status:In Patient. Technical Quality:Adequate visualization. Comments:Simultaneous real time imaging utilizing B-Mode, color doppler and spectral waveform analysis was performed on the right lower extremity for venous examination of the deep and superficial systems. Conclusions Summary No evidence of superficial or deep venous thrombosis in the right lower extremity. Signature Findings: Right Impression: Common femoral, femoral, deep femoral, popliteal, tibials, peroneal, and saphenous veins were evaluated. All veins were compressible and with normal doppler responses. Velocities are measured in cm/s ; Diameters are measured in cm Right Lower Extremities DVT Study Measurements Right 2D Measurements + + + + + !Location !Visualized!Compressibility!Thrombosis! + + + + + !Common Femoral !Yes !Yes !None ! + + + + + !Prox Femoral !Yes !Yes !None ! + + + + + !Mid Femoral !Yes !Yes !None ! + + + + + !Dist Femoral !Yes !Yes !None ! + + + + + !Deep Femoral !Yes !Yes !None ! + + + + + !Popliteal !Yes !Yes !None ! + + + + + !Sapheno Femoral Junction !Yes !Yes !None ! + + + + + !PTV !Yes !Yes !None ! + + + + + !Peroneal !Yes !Yes !None ! + + + + + !Gastroc !Yes !Yes !None ! + + + + + !GSV Thigh !Yes !Yes !None ! + + + + + !GSV Knee !Yes !Yes !None ! + + + + + !GSV Ankle !Yes !Yes !None ! + + + + + !SSV !Yes !Yes !None ! + + + + + Right Doppler Measurements + +------+------+ + !Location !Signal!Reflux!Reflux (msec) ! + +------+------+ + !Common Femoral !Phasic! ! ! + +------+------+ + !Prox Femoral !Phasic! ! ! + (more content not included)...[facility] [id number] Hospital Discharge instructions* Discharge Instr - Activity* Claudia Dasilva RN - 09/06/2021 10:26 AM EDT Follow recommendations per therapy for activity. * Discharge Instr - Diet* Claudia Dasilva RN - 09/06/2021 10:27 AM EDT Good nutrition is important when healing from an illness, injury, or surgery. Follow any nutrition recommendations given to you during your hospital stay. If you were given an oral nutrition supplement while in the hospital, continue to take this supplement at home. You can take it with meals, in-between meals, and/or before bedtime. These supplements can be purchased at most local grocery stores, pharmacies, and [employer]. If you have any questions about your diet or nutrition, call the hospital and ask for the dietitian. Resume general diet. * Additional Instructions* Zenia Molina MD - 09/05/2021 ORTHO SURGERY DISCHARGE INSTRUCTIONS 1. Do not drive or operate hazardous machinery for 24 hours. 2. Do not make important personal or business decisions for 24 hours. 3. Do not drink alcoholic beverages. 4. Do not use tobacco products. 5. Eat light foods (Jell-O, soups, etc....) and drink plenty of fluids (water, Sprite, etc...) up to 8 glasses per day, as you can tolerate. 6. If your bandages become soaked with bright red blood, place another dressing pad over your bandages. (DO NOT remove original bandage.) Call your surgeon for further instructions. A small amount ofbright red blood is to be expected. 7. Limit your activities for 24 hours. Do not engage in heavy work until your surgeon gives you permission. 8. Report the following signs or any questions regarding your physical condition to your surgeon immediately: Excessive swelling of, or around the wound area. Redness. Temperature of 100 degrees (F) or above. Excessive pain. 9. Call your surgeon at the office, , for any questions regarding your surgery. For urgent concerns after office hours, you may call Dr. Molina on his cell phone, [phone]. 10. Follow-up with your surgeon and physical therapy as scheduled. SPECIAL INSTRUCTIONS AND MEDICATIONS 1. Maintain shoulder in sling, except for dressing, grooming and home exercises. 2. Move fingers/toes to improve circulation. 3. Use ibuprofen and/or Tylenol for pain. You may also use prescribed pain pill (which also includes tylenol) as directed by the doctor. Do not take more than 3,000 mg tylenol in a day. 4. Keep your dressing on and dry. You may shower over the waterproof dressing if it remains sealed. 5. Wear FRANCISCO JAVIER hose until directed by your surgeon. You may remove them to shower. 6. Take Aspirin 325 mg daily for 4 weeks. [facility] this [facility] Phone: [phone]) 966-151103-29-2022 History of Present illness Narrative* Elena Clayton RN - 08/22/2021 4:00 PM EDT Instructions reviewed with patient and adult visitor. Both verbalize understanding. Ambulates to exit with steady gait, accompanied by family. * Brigid Ferrari RN - 08/22/2021 1:45 PM EDT Pt states he was able to reach his by phone but states she won't be able to come here until after she gets grandkids from school. Pt resting comfortably on cart, meal ordered from cafeteria. * Brigid Ferrari RN - 08/22/2021 12:00 PM EDT IV discontinued, allowed pt to get dressed, all belongings given to pt. Trying to reach his bytelephone, 2 messages left. * Zunilda Cool RN - 08/22/2021 11:[address] Molina in to see patient informed that patient took Humira. Dr. Molina cancelled surgery d/t wants patient off Humira at least 2 weeks prior to surgery. Neha KIM in room with Dr. Molina. Patient was given versed IV by anesthesia prior to discussion with Dr. Molina. * Marta Ray RN - 08/03/2021 12:23 PM EST Call received from RAEANN Cheung at [facility] in [place]. Requesting results of chest x- ray done 08/02/21 to complete medical clearance. Skye states she gave the patient the contact information for pie chef and also states she has notified Julieta at Dr. Molina's office of these events. * Marta Ray RN - 08/03/2021 12:23 PM EST Patient instructed to contact [facility] regarding follow up with a pie chef. Patient states he has thenumber and will reach out today. * Marta Ray RN - 08/03/2021 10:59 AM EST Attempted to contact patient regarding cardiology follow up needed prior to surgery on 08/22/21. Left message for patient to return call to [facility]. documented in this [facility] Phone: [phone]) [phone] Hospital Discharge instructions* Instructions* Zunilda Cool RN - 08/22/2021 SAME DAY SURGERY DISCHARGE INSTRUCTIONS 1. Do not drive or operate hazardous machinery for 24 hours. 2. Do not make important personal or business decisions for 24 hours. 3. Do not drink alcoholic beverages for 24 hours. 4. Do not smoke tobacco products for 24 hours. 5. Limit your activities for 24 hours. documented in this [facility] Phone: [phone]) 303-949307-15-2021 Hospital Discharge instructions* Discharge Instr - Activity* Adelaide Villela RN - 12/08/2020 12:25 PM EDT Up as tolerated with cane * Discharge Instr - Diet* Adelaide Villela RN - 12/08/2020 12:25 PM EDT Good nutrition is important when healing from an illness, injury, or surgery. Follow any nutrition recommendations given to you during your hospital stay. If you were given an oral nutrition supplement while in the hospital, continue to take this supplement at home. You can take it with meals, in-between meals, and/or before bedtime. These supplements can be purchased at most local grocery stores, pharmacies, and chain super-stores. If you have any questions about your diet or nutrition, call the hospital and ask for the dietitian. Diabetic Diet * Additional Instructions* Grover Morillo, DEPARTMENT DIRECTOR - INDUSTRIAL CLEANING TECHNICIAN - 12/08/2020 dication given may have significant effects after discharge. Therefore on the day of surgery: 1) you should be accompanied by a responsible adult upon discharge and for 24 hours after surgery. Do not drive a motor vehicle, operate machinery, power tools or appliance, drink alcoholic beverages, or make critical decisions for 24 hours 2) Be aware of dizziness, which may cause a fall. Change positions slowly. 3) Eating: you may resume your regular diet but it is better to increase intake slowly with mild foods and working up to your regular diet. 4) Nausea/Vomiting: Nausea and vomiting may occur as you become more active or begin to increase food intake. If this should happen, decrease activity and return to liquids. 5) Pain: Your surgeon may have given you a prescription for pain medication. Take pain medication with food as prescribed. Pain medication may cause constipation, so drink plenty of fluids. You may need to use laxatives. 6) Ice: You may use a cool pack to operative site for 20 min 5-6 times a day as needed for comfort. 8) Dressing: Change dressing as frequently as needed to keep clean and dry. Remove all sticky tape in 5 days. May shower in three days. Do not put soap or soak on the incision until healed. 9) INCREASE ACTIVITY TOLERATED AND INSTRUCTED. GO BY HOW YOU FEEL. 10) See physical therapist when advised by your physician 11) Call your doctor at [phone] for an appointment (or follow up as scheduled). 12) If have an order for X-Rays have done within a week before your follow up appointment. Contact OFFICE IF o Increased redness, swelling, excess drainage, and/or pain to surgery site. As well as new onset fevers and or chills. These could signify an infection. o Calf or thigh tenderness to touch as well as increased swelling or redness. This could signify a clot formation. o Numbness or tingling to an area around the incision site or below the incision site (toes). Or ifthe operative extremity becomes cold, blue. o Any rash appears, increased or new onset nausea/vomiting occur. This may indicate a reaction to amedication. o Temp is 38.5 C (101F) 12) If you have any concerns or questions, please call OFFICE. The 24- hour phone is [phone] 13) If you are unable to contact your surg Patient is to use ice bags 10 minutes on 10 minutes off as needed basis Patient may shower in 5 days postop. Do not wear back brace until you have your two week follow up appointment to have saul removed and wound check. Patient is to ambulate as much as possible Patient is to not drive until follow up * Attachments The following attachments cannot be sent through Care Everywhere. * Lumbar Spinal Fusion: Post-op (Emirati) * cephalexin (Emirati) * fentanyl transdermal (skin patch) (Emirati) * acetaminophen and hydrocodone (Emirati) * diazepam (oral) (Emirati) * senna (Emirati) documented in this [facility] Phone: [phone]) 839-585607-15-2021 History of Present illness Narrative* Grover Morillo, IRAIS - INDUSTRIAL CLEANING TECHNICIAN - 12/08/2020 8:42 AM EDT Progress Note Date:12/08/2020 Room:[place] [address] Patient Name:Deondre Lr Date of :1955 Age:65 y.o. Objective Vitals Last 24 Hours: TEMPERATURE: Temp Av.3 F (36.8 C) Min: 98.1 F (36.7 C) Max: 98.5 F (36.9 C) RESPIRATIONS RANGE: Resp Av.4 Min: 18 Max: 20 PULSE OXIMETRY RANGE: SpO2 Av.8 % Min: 94 % Max: 97 % PULSE RANGE: Pulse Av Min: 77 Max: 88 BLOOD PRESSURE RANGE: Systolic (24hrs), Av , Min:95 , Max:117 ; Diastolic (24hrs), Av, Min:50, Max:68 I/O (24Hr): Intake/Output Summary (Last 24 hours) at 12/08/2020 1139 Last data filed at 12/08/2020 0440 Gross per 24 hour Intake 600 ml Output Net 600 ml Objective Labs/Imaging/Diagnostics Labs: CBC: Recent Labs 12/06/20 1417 12/07/20 0542 12/08/20 0940 WBC 8.4 14.3* 12.7* RBC 3.07* 2.84* 2.78* HGB 10.0* 9.3* 9.1* HCT 30.4* 27.8* 27.4* MCV 99.0 97.8 98.3 RDW 13.1 12.9 13.2 PLT 161 183 173 CHEMISTRIES: Recent Labs 12/06/20141612/07/20 0542 NA 137 138 K 4.1 4.8 CL 102 102 CO2 25 25 BUN 19 18 CREATININE 1.18 1.15 GLUCOSE 197* 160* PT/INR:No results for input(s): PROTIME, INR in the last 72 hours. APTT:No results for input(s): APTT in the last 72 hours. LIVER PROFILE:No results for input(s): AST, ALT, BILIDIR, BILITOT, ALKPHOS in the last 72 hours. Imaging Last 24 Hours: XR LUMBAR SPINE (2-3 VIEWS) Result Date: 12/07/2020 TECHNIQUE: AP AND LATERAL VIEWS OF THE LUMBOSACRAL SPINE HISTORY: Postop COMPARISON: Lumbar spine radiograph 06/05/2019 RESULT: Counting reference: Lumbosacral junction. For the purposes of this report, L5S1 is considered the last lumbar type disc space and L4-5 is considered the level of the iliac crest. No interval postoperative changes of L3-L4 posterior fusion and laminectomy and stable prior postoperative changes of L4-S1 lumbar fusion and laminectomy with pedicle screws and interconnectingrods. Hardware remains intact. New intervertebral body spacer at L4-L5 and unchanged at L5-S1. Multiple surgical saul overlie the posterior lower back, with adjacent soft tissue swelling. Multiplesurgical clips overlie the left lower quadrant and pelvis. Prominent bowel gas loops, likely secondary to postoperative ileus. No significant subcutaneous gas. Lumbar lordosis is maintained. Vertebral body heights and disc spaces are maintained. No fracture or subluxation. Mild degenerative changesof the imaged femoral joints. SI joints are unremarkable. Interval postoperative changes of L3-L4 posterior laminectomy and stable L4-S1 posterior fusion, with intact hardware. Fluoro For Surgical Procedures Result Date: 12/07/2020 FLUORO FOR SURGICAL PROCEDURES : 12/06/2020 10:30 AM CLINICAL HISTORY: R52 Pain ICD10. COMPARISON: None available. Intraoperative fluoroscopy was provided for Dr. Tovar procedure. A total of 71.7 seconds of fluoroscopy was used, with 4 fluoroscopic stills saved. No diagnostic images were obtained. Please see Dr. Tovar surgical notes for completeness. Assessment//Plan Hospital Problems Last Modified POA Pseudoarthrosis of lumbar spine 12/06/2020 Yes Assessment & Plan Patient pod#2 L3, L4-5 posterior lumbar interbody fusion, exploration and removal of hardware at L4, pedicle screw placement L3 and L4 with redirection, L3-4-5-S1 instrumentation pedicle screw, L3-4 and L4-5 posterior lateral fusion, L4-5 biomechanical device insertion to the left, L4-5 arthrodesis, autograft allograft and infuse. The patient seen up ambulating independently in room with use of walker with slow steady gait priorto entering the room for rounds. During rounds patient seen sitting on side of bed eating breakfastwith TLSO brace on. Patient instructed yesterday and again today he is not to wear the TLSO brace until he has his two week follow up and saul have been removed. Patient verbalized understanding. Patient notes moderate to severe pain to lumbar incision that radiates to bilateral hips. This is the same pain he was experiencing yesterday and he notes the pain to not be any better. Patient is being medicated with fentanyl patch 25mcg every 72 hours, 7.5/325 mg norco every 4 hours, flexeril 10 mg TID which he notes to provide no relieve of muscles spasms he is also experiencing. This will be discontinued and patient will be provided with valium while in hospital. He also has IV dilaudid PRNthat patient is requesting to receive every three hours. Patient does have a history of chronic back pain in which he sees a pain management doctor in [place], [place]. Patient notes that his pain management doctor provides him with the norco 7.5/325 twice a day for his chronic pain. I had a lengthy discussion with patient that IV dilaudid is to be used in the event of severe pain and that it would benefit the patient to try to optimize his pain control using only oral pain medications, oral muscle relaxants, and fentanyl patch, and not becoming dependent on IV pain medication because the plan is for patient to return to home today and he will only go home with oral pain medications. Patient verbalized understanding of this. I also discussed non- pharmacologic therapies for pain such as ice, laying on either side and not directly flat on back and increasing ambulation and mobility as tolerated to decrease muscle soreness and stiffness. He is aware that the first couple days are going to be the most painful for him and that pain will get better with the above mentioned. Labs were reviewed indicating acute blood loss anemia post-operatively with hgb this morning of 9.1. Patient remains asymptomatic with no complaints of chest pain, shortness of breath, dizziness, lightheadedness or fatigue. There are no signs of active bleeding. The lumbar incision is soft to palpation with no indication of hematoma formation that could contribute to this post-operative acute blood loss anemia. Patients WBC count is trending down and this morning WBC count was 12.7. Again this transient elevation most likely secondary to stress of surgery. No signs of acute infection. The surgical incision is well approximated without drainage, erythema or edema. There are [address] New CDI dressing applied. The patient is still having intermittent episodes of asymptomatic hypotension and again this is most likely secondary to pain medication. Will continue to monitor and have discontinued the IV dilaudid given these episodes of hypotension seem to correlate after dilaudid administration. The plan is for patient to return to home today. He is not to wear the TLSO brace until his two week follow up when saul are removed He is to ambulate as much as possible without bending twisting of the back. Dressing to be changed daily with light dressing and PRN for any saturation. On pod#4 the dressing can be removed and incision left open to air and patient may shower on pod#5 avoiding any scrubbing of incision but can gently cleanse in shower. * TateAnastacia Armando, OTR/L - 12/07/2020 10:10 AM EDT NATALEE BAINS OCCUPATIONAL THERAPY EVALUATION - ACUTE NAME: Deondre Lr : 1955 (65 y.o.) CODE STATUS: Full Code Room: [place] [address] Date of Service: 12/07/2020 Patient Diagnosis(es): Pseudoarthrosis of lumbar spine [S32.009K] No chief complaint on file. Patient Active Problem List Diagnosis Date Noted Radiculopathy 11/25/2020 Pseudoarthrosis of lumbar spine 11/25/2020 Spondylosis 11/25/2020 Arthrodesis status 03/18/2020 Lumbar degenerative disc disease 06/04/2019 Acquired absence of kidney 01/31/2019 Atrial fibrillation (HCC) 10/28/2013 Essential hypertension 10/28/2013 Type 2 diabetes mellitus without complication (HCC) 10/28/2013 Past Medical History: Diagnosis Date A-fib (HCC) CAD (coronary artery disease) Chronic back pain Chronic headaches Diabetes (HCC) Hypertension Restless leg syndrome Rheumatoid arthritis (HCC) Sleep apnea Past Surgical History: Procedure Laterality Date LUMBAR FUSION N/A 06/04/2019 L 4-5, L5-S1 DECOMPRESSION L 4-5, L5-S1 POSTEROLATERAL FUSION L5-S1 PLIF performed by [facility]ar [facility] OR LUMBAR FUSION N/A 12/06/2020 L3-4, L4-5 POSTERIOR LUMBAR INTERBODY FUSION performed by Hernandez Tovar MD at [facility] OR SHOULDER SURGERY SPINE SURGERY Restrictions Restrictions/Precautions: Fall Risk Position Activity Restriction Other position/activity restrictions: Limit twisting/bending/lifting. Per order, pt to have back brace when OOB PRN; however pt. does not have brace yet Safety Devices: Safety Devices Safety Devices in place: Yes Type of devices: All fall risk precautions in place Subjective Pre Treatment Pain Screening Pain at present: 8 Scale Used: Numeric Score Intervention List: Patient able to continue with treatment, Pt educated regarding timing of pain meds, Nurse/Physician notified Pain Reassessment: Pain Assessment Patient Currently in Pain: Yes Pain Assessment: 0-10 Pain Level: 8 Pain Type: Acute pain, Surgical pain Pain Location: Back Pain Orientation: Mid Pain Descriptors: Aching, Burning Prior Level of Function: Social/Functional History Lives With: Spouse, Son (family memebers) Type of Home: House Home Layout: One level, Laundry in basement, Performs ADL's on one level Home Access: Stairs to enter with rails Entrance Stairs - Number of Steps: 3 Entrance Stairs - Rails: Right Bathroom Shower/Tub: Walk-in shower Bathroom Equipment: (built in seat) Home Equipment: Cane (rollator) ADL Assistance: Independent Homemaking Assistance: (sometimes cleaning and laundry) Ambulation Assistance: Independent (cane) Transfer Assistance: Independent Active Publicity Director: Yes 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: Orientation Status: Orientation Overall Orientation Status: Within Functional Limits Observation: Observation/Palpation Posture: Fair Observation: Pt alert, pleasant, impulsive, grimacing in pain throughout Cognition Status: Cognition Overall Cognitive Status: WFL Perception Status: Perception Overall Perceptual Status: WFL Sensation Status: Sensation Overall Sensation Status: (chronic neuropathy B feet) Vision and Hearing Status: Vision Vision Exceptions: Wears glasses for reading Hearing Hearing: Within functional limits ROM: LUE AROM (degrees) LUE AROM : WFL Left Hand AROM (degrees) Left Hand AROM: WFL RUE AROM (degrees) RUE AROM : WFL Right Hand AROM (degrees) Right Hand AROM: WFL Strength: LUE Strength Gross LUE Strength: WFL L Hand General: 4/5 LUE Strength Comment: 4/5 all planes RUE Strength Gross RUE Strength: WFL R Hand General: 4/5 RUE Strength Comment: 4/5 all planes Coordination, Tone, Quality of Movement: Tone RUE RUE Tone: Normotonic Tone LUE LUE Tone: Normotonic Coordination Movements Are Fluid And Coordinated: Yes Hand Dominance: Hand Dominance Hand Dominance: Right ADL Status: ADL Feeding: Modified independent Grooming: Setup UE Bathing: Setup LE Bathing: Minimal assistance UE Dressing: Setup LE Dressing: Moderate assistance Toileting: Stand by assistance Additional Comments: Simulated ADLs as above. Pt. dons underwear with assist to correctly don over feet, but demonstrates G understanding of figure 4. Educated on sitting in a chair with a back for dressing to improve endurance and limit bending, pt. with G understanding Toilet Transfers Toilet Transfer: Unable to assess Toilet Transfers Comments: Anticipate SBA with verbal cues Educated pt. on LE dressing techniques as well as on use of long handled sponge for LE bathing. Pt.reports he thinks his has one at home. Therapy gamboa for assistance levels Independent = Pt. is able to perform task with no assistance but may require a device Stand by assistance = Pt. does not perform task at an independent level but does not need physical assistance, requires verbal cues Minimal, Moderate, Maximal Assistance = Pt. requires physical assistance (25%, 50%, 75% assist fromhelper) for task but is able to actively participate in task Dependent = Pt. requires total assistance with task and is not able to actively participate with task completion Functional Mobility: Functional Mobility Functional - Mobility Device: Rolling Walker Activity: To/from bathroom Assist Level: Stand by assistance Functional Mobility Comments: Increased time and effort for mobility Transfers Sit to stand: Contact guard assistance Stand to sit: Contact guard assistance Transfer Comments: Verbal and tactile cues for safety and sequencing Bed Mobility Bed mobility Rolling to Left: Contact guard assistance Rolling to Right: Contact guard assistance Supine to Sit: Contact guard assistance Sit to Supine: Contact guard assistance Comment: Pt intially impulsive coming to EOB. Instructed in log roll technique. Pt. encouraged to avoid valsalva maneuver, however minimal follow through noted Seated and Standing Balance: Balance Sitting Balance: Supervision Standing Balance: Stand by assistance Functional Endurance: Activity Tolerance Activity Tolerance: Patient Tolerated treatment well D/C Recommendations: OT D/C RECOMMENDATIONS REQUIRES OT FOLLOW UP: Yes Equipment Recommendations: OT Equipment Recommendations Other: Continue to assess OT Education: OT Education OT Education: OT Role, Plan of Care Patient Education: Educated pt. on role of acute care OT Barriers to Learning: None OT Follow Up: OT D/C RECOMMENDATIONS REQUIRES OT FOLLOW UP: Yes Assessment/Discharge Disposition: Assessment: Pt is a 65 year old man from home who presents to [facility] with the above deficits s/p planned spinal sx. Pt. demonstrates decreased overall balance and endurance. Pt. would benefit from continued OT to maximize independence and safety with ADL tasks. Performance deficits / Impairments: Decreased functional mobility , Decreased ADL status, Decreasedendurance, Decreased balance, Decreased high-level IADLs, Decreased safe awareness Prognosis: Good Discharge Recommendations: Continue to assess pending progress Decision Making: Medium Complexity History: Pt's medical history is moderately complex Exam: Pt. has 6 performance deficits Assistance / Modification: Pt. requires min-mod A Six Click Score How much help for putting on and taking off regular lower body clothing?: A Lot How much help for Bathing?: A Little How much help for Toileting?: A Little How much help for putting on and taking off regular upper body clothing?: A Little How much help for taking care of personal grooming?: A Little How much help for eating meals?: None AM-PAC Inpatient Daily Activity Raw Score: 18 AM-PAC Inpatient ADL T-Scale Score : 38.66 ADL Inpatient CMS 0-100% Score: 46.65 Plan: Plan Times per week: 1-4x Plan weeks: Length of acute stay Current Treatment Recommendations: Balance Training, Functional Mobility Training, Endurance Training, Pain Management, Safety Education & Training, Patient/Caregiver Education & Training, Self-Care / ADL, Equipment Evaluation, Education, & procurement Goals: Patient will: - Improve functional endurance to tolerate/complete 30 mins of ADL's - Be Mod I in UB ADLs - Be Mod I in LB ADLs - Be Mod I in ADL transfers without LOB - Be Mod I in toileting tasks - Access appropriate D/C site with as few architectural barriers as possible. - Sequence self-care tasks with no verbal cues for safety Patient Goal: Patient goals : I want to get home Discussed and agreed upon: Yes Comments: Therapy Time: OT Individual Minutes Time In: 837 Time Out: 901 Minutes: 24 ADL/IADL trainin minutes Eval: 14 minutes Electronically signed by: FE Drummond/Jaclyn, OTR/Jaclyn 12/07/2020, 10:10 AM * Enma Townsend, PT - 12/07/2020 10:07 AM EDT Physical Therapy Med Surg Initial Assessment Facility/Department: [address] NEURO Room: N222/N222-01 NAME: Deondre Lr : 1955 (65 y.o.) CODE STATUS: Full Code Date of Service: 12/07/2020 Patient Diagnosis(es): Pseudoarthrosis of lumbar spine [S32.009K] No chief complaint on file. Patient Active Problem List Diagnosis Date Noted Radiculopathy 11/25/2020 Pseudoarthrosis of lumbar spine 11/25/2020 Spondylosis 11/25/2020 Arthrodesis status 03/18/2020 Lumbar degenerative disc disease 06/04/2019 Acquired absence of kidney 01/31/2019 Atrial fibrillation (HCC) 10/28/2013 Essential hypertension 10/28/2013 Type 2 diabetes mellitus without complication (HCC) 10/28/2013 Past Medical History: Diagnosis Date A-fib ([facility]) CAD (coronary artery disease) Chronic back pain Chronic headaches Diabetes ([facility]) Hypertension Restless leg syndrome Rheumatoid arthritis ([facility]) Sleep apnea Past Surgical History: Procedure Laterality Date LUMBAR FUSION N/A 06/04/2019 L 4-5, L5-S1 DECOMPRESSION L 4-5, L5-S1 POSTEROLATERAL FUSION L5-S1 PLIF performed by Hernandez Tovar MDat [facility] [place] OR LUMBAR FUSION N/A 12/06/2020 L3-4, L4-5 POSTERIOR LUMBAR INTERBODY FUSION performed by Hernandez Tovar MD at [facility] [place] OR SHOULDER SURGERY SPINE SURGERY Chart Reviewed: Yes Patient assessed for rehabilitation services?: Yes Family / Caregiver Present: No General Comment Comments: Pt resting in bed - agreeable to PT evaluation Restrictions: Restrictions/Precautions: Fall Risk Position Activity Restriction Other position/activity restrictions: Limit twisting/bending/lifting SUBJECTIVE: Subjective: I'm having pain. Pain Pre Treatment Pain Screening Pain at present: 9 Scale Used: Numeric Score Intervention List: Patient able to continue with treatment;Nurse/physician notified;Patient declined any intervention Comments / Details: back Post Treatment Pain Screening: Pain Assessment Pain Assessment: (unchanged) Prior Level of Function: Social/Functional History Lives With: Spouse, Son (family memebers) Type of Home: House Home Layout: One level, Laundry in basement, Performs ADL's on one level Home Access: Stairs to enter with rails Entrance Stairs - Number of Steps: 3 Entrance Stairs - Rails: Right Bathroom Shower/Tub: Walk-in shower Bathroom Equipment: (built in seat) Home Equipment: Cane (rollator) ADL Assistance: Independent Homemaking Assistance: (sometimes cleaning and laundry) Ambulation Assistance: Independent (cane) Transfer Assistance: Independent Active Publicity Director: Yes 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 Pleasant and motivated. 3L O2 donned - removed for assessmentto simulate home set up. ROM: RLE PROM: WFL RLE General PROM: stiffness throughout hip LLE PROM: WFL LLE General PROM: stiffness throughout hip Strength: Strength RLE Comment: Grossly 2+/5 Strength LLE Comment: Grossly 2+/5 Strength Other Other: Pt significantly limited by pain. Neuro: Balance Sitting - Static: Good Sitting - Dynamic: Good Standing - Static: Fair Standing - Dynamic: Fair Motor Control Gross Motor?: (significant pain guarding) Sensation Overall Sensation Status: (chronic neuropathy B feet) Bed mobility Rolling to Left: Contact guard assistance Rolling to Right: Contact guard assistance Supine to Sit: Contact guard assistance Sit to Supine: Contact guard assistance Comment: instructed in logroll technique. hand over hand cues provided. Pt encouraged to avoid valsalva manuever however minimal follow through. Transfers Sit to Stand: Minimal Assistance Stand to sit: Contact guard assistance Bed to Chair: Contact guard assistance Comment: Hand over hand cues for hip hinge and ergonomic sequencing for STS. Verbal cues provided for approach to chair and sequencing to sit. Slow pacing, however follows through. Ambulation Ambulation?: Yes Ambulation 1 Surface: level tile Device: Rolling Walker Assistance: Stand by assistance;Contact guard assistance Quality of Gait: Rigid posturing. Pt with slow speed, however consistent pace and pattern. Cues forextended posture and deep breathing techniques. Distance: 20ft. Comments: Further distance limited by c/o fatigue/lightheadedness Activity Tolerance Activity Tolerance: Patient Tolerated treatment well Exercises Comments: DIscussed exercise grading with walking program and antiemobilics in seated position. AP/LAQ/GS X 10 each. Pt verbalizes understanding. PT Education PT Education: Goals;PT Role;Plan of Care;Precautions;Transfer Training;Gait Training;Functional Mobility Training;Injury Prevention;General Safety. No LSO with patient. Pt states that he had been fitted a year ago but does not remember if he still has his brace. Notified nursing. Educated on properplacement and fit of brace and usage per physician's order. ASSESSMENT: Body structures, Functions, Activity limitations: Decreased functional mobility ;Decreased safe awareness;Increased pain;Decreased ROM;Decreased strength;Decreased balance;Decreased ADL status Decision Making: Medium Complexity History: Med Exam: Med Clinical Presentation: Med Prognosis: Good Barriers to Learning: none DISCHARGE RECOMMENDATIONS: Discharge Recommendations: Continue to assess pending progress, Patient would benefit from continued therapy after discharge Assessment: Continued PT indicated to progress mobility and facilitate DC at hightest level of indep and safety. Pt limited by pain and fatigue this AM, however anticipate resolution with overnight stay. Plan for tx in AM to assess rollator vs WW for DC. REQUIRES PT FOLLOW UP: Yes PLAN OF CARE: Plan Times per week: 3-6 Current Treatment Recommendations: Strengthening, ROM, Balance Training, Functional Mobility Training, Transfer Training, Endurance Training, Gait Training, Stair training, Neuromuscular Re-education, Pain Management, Home Exercise Program, Safety Education & Training, Manual Therapy - Soft Tissue Mobilization, Patient/Caregiver Education & Training, Equipment Evaluation, Education, &procurement, Modalities, Positioning Safety Devices Type of devices: All fall risk precautions in place Goals: Short term goals Short term goal 1: Pt to complete HEP with indep [facility] goals 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 dealer goal 1: Pt to complete bed mobility with indep [facility] goal 2: Pt to complete transfers with indep 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 dealer goal 3: Pt to ambulate 50-150ft with LRD and indep [facility] goal 4: Pt to manage 3 steps with HR and indep [facility] (6 CLICK) BASIC MOBILITY AM-[facility] Inpatient Mobility Raw Score : 18 Therapy Time: Individual Time In 0838 Time Out 0902 Minutes 24 Timed Code Treatment Minutes: 8 Minutes (transfers 6min; therex 2min) Enma Townsend, PT, 12/07/20 at 10:07 AM Definitions for assistance levels Independent = pt does not require any physical supervision or assistance from another person for activity completion. Device may be needed. Stand by assistance = pt requires verbal cues or instructions from another person, close to but nottouching, to perform the activity Minimal assistance= pt performs 75% or more of the activity; assistance is required to complete theactivity Moderate assistance= pt performs 50% of the activity; assistance is required to complete the activity Maximal assistance = pt performs 25% of the activity; assistance is required to complete the activity Dependent = pt requires total physical assistance to accomplish the task * Zan Arrieta [facility] - 12/06/2020 3:52 PM EDT PHARMACY NOTE Deondre Lr was ordered adalimumab. Per the [facility] Formulary Committee Policy, this medication is non-formulary and not stocked by pharmacy. The medication can be reordered at discharge. Zan Arrieta, PharmD, BCPS, MHA Staff Pharmacist 12/06/2020 3:52 PM documented in this encounterFulton County Health CenterQBInternational Phone: [phone] 404-800107-14-2021 NoteFLUORO FOR SURGICAL PROCEDURES : 12/06/2020 10:30 AM CLINICAL HISTORY: R52 Pain ICD10. COMPARISON: None available. Intraoperative fluoroscopy was provided for Dr. Guy melendez. A total of 71.7 seconds of fluoroscopy was used, with 4 fluoroscopic stills saved. No diagnostic images were obtained. Please see Dr. Tovar surgical notes for completeness.[facility] Phone: [phone] [phone] NoteFLUORO FOR SURGICAL PROCEDURES : 12/06/2020 10:30 AM CLINICAL HISTORY: R52 Pain ICD10. COMPARISON: None available. Intraoperative fluoroscopy was provided for Dr. Guy melendez. A total of 71.7 seconds of fluoroscopy was used, with 4 fluoroscopic stills saved. No diagnostic images were obtained. Please see Dr. Tovar surgical notes for completeness. Interpreted by: Cirilo Moreland MD Signed by: Cirilo Moreland MD 12/07/20 [facility] History of Present illness Narrative* Nathan Tavares, TUBE CLEANING OPERATOR - 06/06/2019 11:53 AM EST Physical Therapy Med Surg Daily Treatment Note Facility/Department: [address] NEURO Room: N222/N222-01 NAME: Deondre Lr : 1955 (64 y.o.) CODE STATUS: Full Code Date of Service: 06/06/2019 Patient Diagnosis(es): Lumbar degenerative disc disease [M51.36] No chief complaint on file. Patient Active Problem List Diagnosis Date Noted Lumbar degenerative disc disease 06/04/2019 Past Medical History: Diagnosis Date CAD (coronary artery disease) Chronic back pain Chronic headaches Diabetes (HCC) Hypertension Restless leg syndrome Rheumatoid arthritis (HCC) Sleep apnea Past Surgical History: Procedure Laterality Date LUMBAR FUSION N/A 06/04/2019 L 4-5, L5-S1 DECOMPRESSION L 4-5, L5-S1 POSTEROLATERAL FUSION L5-S1 PLIF performed by Hernandez Tovar, Fanny [facility] OR SHOULDER SURGERY SPINE SURGERY Restrictions Restrictions/Precautions: Up as Tolerated Position Activity Restriction Spinal Precautions: Limit bending/lifting/twisting Other position/activity restrictions: per telephone, Dr. Tovar reports no brace while pt has saul SUBJECTIVE General Chart Reviewed: Yes Family / Caregiver Present: No Subjective Subjective: I'm better today. Pre Treatment Pain Screening Pain at present: 8 Scale Used: Numeric Score Intervention List: Patient able to continue with treatment Pre-Session Pain Report Pain Screening Patient Currently in Pain: Yes Post-Session Pain Report Pain Assessment Pain Assessment: 0-10 Pain Level: 8 Pain Type: Surgical pain Pain Location: Back OBJECTIVE Bed mobility Rolling to Left: Stand by assistance Rolling to Right: Stand by assistance Supine to Sit: Stand by assistance Sit to Supine: Stand by assistance Comment: bess good log roll technique without cueing. Transfers Sit to Stand: Stand by assistance Stand to sit: Stand by assistance Bed to Chair: (declines) Comment: vc's for hand placement, pt with increased time to complete. Ambulation Ambulation?: Yes Ambulation 1 Surface: level tile Device: Rolling Walker Assistance: Stand by assistance Quality of Gait: short step length, slow beto, good posture Distance: 40' x2 Stairs/Curb Stairs?: Yes Stairs # Steps : 4 Stairs Height: 6 Rails: Left ascending Device: Single pt cane(R) Assistance: Stand by assistance Comment: good safe technique. Activity Tolerance Activity Tolerance: Patient Tolerated treatment well ASSESSMENT Assessment: pt with good mobility maintains movement restrictions and is safe on stairs. Discharge Recommendations: Continue to assess pending progress, Patient would benefit from continued therapy after discharge Goals [facility] goals 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 dealer goal 1: pt to be indep with bed mobility utilizing log roll 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 dealer goal 2: pt to be indep with transfers 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 dealer goal 3: pt to ambulate >100 ft with WW vs cane mod indep 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 dealer goal 4: pt to navigate 4 steps with 1 HR, cane supervision assist Patient Goals Patient goals : to go home PLAN Safety Devices Type of devices: All fall risk precautions in place;Bed alarm in place;Call light within reach;Leftin bed;Nurse notified [facility] (6 CLICK) BASIC MOBILITY AM-PAC Inpatient Mobility Raw Score : 18 Therapy Time Individual Time In 1102 Time Out 1116 Minutes 14 Gait: 11 BM/Trsf: 3 Nathan Tavares TUBE CLEANING OPERATOR, 06/06/19 at 11:53 AM * Hernandez Tovar MD - 06/06/2019 9:02 AM EST Patient: Deondre Lr Unit/Bed: N222/N222-01 Date of : 1955 Acct: [id number] Admitting Diagnosis: Lumbar degenerative disc disease [M51.36] Admit Date: 06/04/2019 Hospital Day: 2 Current Medications: Scheduled Meds: fentaNYL 1 patch Transdermal Q72H lisinopril 10 mg Oral Daily thiamine 100 mg Oral Daily pantoprazole 40 mg Oral QAM AC prednisoLONE 5 mg Oral Daily furosemide 40 mg Oral Daily insulin glargine 10 Units Subcutaneous Nightly metoprolol succinate 50 mg Oral Daily flecainide 100 mg Oral BID ferrous sulfate 325 mg Oral Daily with breakfast gabapentin 600 mg Oral Daily vitamin C 500 mg Oral Daily aspirin 81 mg Oral Daily Adalimumab 40 mg Subcutaneous Q14 Days amitriptyline 50 mg Oral Daily DULoxetine 60 mg Oral Daily folic acid 1 mg Oral Daily sertraline 100 mg Oral BID sulfaSALAzine 1,000 mg Oral BID sodium chloride flush 10 mL Intravenous 2 times per day docusate sodium 100 mg Oral BID cephALEXin 500 mg Oral 3 times per day insulin lispro 0-12 Units Subcutaneous TID WC insulin lispro 0-6 Units Subcutaneous Nightly Continuous Infusions: sodium chloride 100 mL/hr at 06/06/19218 PRN Meds:.HYDROcodone 5 mg - acetaminophen, sodium chloride flush, morphine OR morphine, ondansetron, diazepam . sodium chloride 100 mL/hr at 06/06/19 0219 Recent Labs 06/04/19 0646 06/04/19 1237 06/05/19 0524 WBC 7.6 9.0 15.1* HGB 11.7* 10.7* 10.6* HCT 35.1* 32.9* 32.2* MCV 100.7* 102.4* 101.1* PLT 206 177 223 Recent Labs 06/04/19 0645 06/04/19 1237 06/05/19 0524 NA 143 140 137 K 4.3 4.2 3.6 CL 106 104 98 CO2 26 23 25 BUN 19 18 14 CREATININE 0.93 0.91 0.94 No results for input(s): AST, ALT, ALB, BILIDIR, BILITOT, ALKPHOS in the last 72 hours. No results for input(s): LIPASE, AMYLASE in the last 72 hours. Recent Labs 06/04/19 0646 INR 1.0 Imaging Results: Xr Lumbar Spine (2-3 Views) Result Date: 06/05/2019 Patient : 1955 Age: 64 years Gender: Male Order Date: 06/05/2019 11:00 AM. Exam: XR LUMBAR SPINE (2-3 VIEWS) Number of Views: 3 Indication: Postoperative evaluation Comparison: None Findings: Posterior spinal fixation L4-S1, with interbody fusion device placement at L5-S1. Surgical saul. No unexpected postoperative concave features are seen. Surgical clips right upper abdomen. Nonobstructive bowel gas pattern. Mild degenerative changes bilateral hips. Impression: 1. Postoperative changes as described above without unexpected postoperative complicating features. 2. Mild bilateral osteoarthritis of the hips. Fluoro For Surgical Procedures Result Date: 06/04/2019 FLUORO FOR SURGICAL PROCEDURES : 06/04/2019 6:30 AM CLINICAL HISTORY: Lumbar Fusion . COMPARISON: None available. Intraoperative fluoroscopy was provided for Dr. Tovar procedure. A total of 49.8 seconds of fluoroscopy was used, with 6 fluoroscopic stills saved. No diagnostic images were obtained. Please see Dr. Tovar surgical notes for completeness. BP 130/71 Pulse 92 Temp 97 F (36.1 C) (Oral) Resp 16 Ht 5' 4 (1.626 m) Wt 175 lb (79.4 kg) SpO2 95% BMI 30.04 kg/m Less confusion after stopping fentanyl patch. Incision clean and dry. MARICHUY drain removed. neurologically stable. X-ray with satisfaction. Status post multilevel lumbar compression with a fusion sensation. Still having some issues with pain control due to his chronic pain medication usage preoperatively. Again encourage PT OT out of bed. * Nathan Tavares PTA - 06/06/2019 8:41 AM EST Physical Therapy Missed Treatment Facility/Department: [facility] / NAME: Deondre Lr : 1955 (64 y.o.) Account: [id number] Gender: male Chart reviewed, attempted PT at 8:40. Patient unavailable 2 to: [] Hold per nsg request [] Pt declined [] Nsg notified [] Other notified [] Pt.. off floor for test/procedure. [x] Pt. Unavailable pt with increased pain and confusion last night per RN, let pt rest for now andwill check back when possible. Will attempt PT treatment again at earliest convenience. * Anastacia Tate OTR/Jaclyn - 06/05/2019 9:11 AM EST NATALEE BAINS OCCUPATIONAL THERAPY EVALUATION - ACUTE NAME: Deondre Lr : 1955 (64 y.o.) CODE STATUS: Full Code Room: [place] [address] Date of Service: 06/05/2019 Patient Diagnosis(es): Lumbar degenerative disc disease [M51.36] No chief complaint on file. Patient Active Problem List Diagnosis Date Noted Lumbar degenerative disc disease 06/04/2019 Past Medical History: Diagnosis Date CAD (coronary artery disease) Chronic back pain Chronic headaches Diabetes (HCC) Hypertension Restless leg syndrome Rheumatoid arthritis (HCC) Sleep apnea Past Surgical History: Procedure Laterality Date LUMBAR FUSION N/A 06/04/2019 L 4-5, L5-S1 DECOMPRESSION L 4-5, L5-S1 POSTEROLATERAL FUSION L5-S1 PLIF performed by Fanny Barone MLOZ OR SHOULDER SURGERY SPINE SURGERY Restrictions Restrictions/Precautions: Up as Tolerated Position Activity Restriction Spinal Precautions: Limit bending/lifting/twisting Safety Devices: Safety Devices Safety Devices in place: Yes Type of devices: All fall risk precautions in place Subjective Pre Treatment Pain Screening Pain at present: 8 Scale Used: Numeric Score Intervention List: Patient able to continue with treatment Comments / Details: Per RN pt. just got pain medication Pain Reassessment: Pain Assessment Patient Currently in Pain: Yes Pain Assessment: 0-10 Pain Level: 8 Pain Type: Chronic pain, Surgical pain Pain Location: Back Pain Orientation: Lower Prior Level of Function: Social/Functional History Lives With: Spouse Type of Home: House Home Layout: One level, Laundry in basement Home Access: Stairs to enter with rails Entrance Stairs - Number of Steps: 3 Bathroom Shower/Tub: Walk-in shower Bathroom Equipment: Built-in shower seat Home Equipment: Cane ADL Assistance: Independent Homemaking Assistance: Independent Ambulation Assistance: Independent(cane on bad days and on stairs) Transfer Assistance: Independent Active Publicity Director: Yes OBJECTIVE: Orientation Status: Orientation Overall Orientation Status: Within Functional Limits Observation: Observation/Palpation Posture: Fair Observation: Pt. alert and attentive, willing to engage in OT Cognition Status: Cognition Overall Cognitive Status: WFL Perception Status: Perception Overall Perceptual Status: WFL Sensation Status: Sensation Overall Sensation Status: WNL Vision and Hearing Status: Vision Vision: Within Functional Limits Hearing Hearing: Exceptions to WFL Hearing Exceptions: (Pt. states mild hearing loss) ROM: LUE AROM (degrees) LUE AROM : WFL LUE General AROM: Shoulders to 90 otherwise WFL Left Hand AROM (degrees) Left Hand AROM: WFL RUE AROM (degrees) RUE AROM : WFL RUE General AROM: Shoulders to 90 otherwise WFL Right Hand AROM (degrees) Right Hand AROM: WFL Strength: LUE Strength Gross LUE Strength: WFL L Hand General: 4/5 LUE Strength Comment: 3+/5 all planes RUE Strength Gross RUE Strength: WFL R Hand General: 4/5 RUE Strength Comment: 3+/5 all planes Coordination, Tone, Quality of Movement: Tone RUE RUE Tone: Normotonic Tone LUE LUE Tone: Normotonic Coordination Movements Are Fluid And Coordinated: Yes Quality of Movement Other Comment: Mild arthritic changes Hand Dominance: Hand Dominance Hand Dominance: Right ADL Status: ADL Feeding: Independent Grooming: Setup LE Bathing: Minimal assistance UE Dressing: Setup LE Dressing: Minimal assistance Toileting: Stand by assistance Additional Comments: Simulated ADLs as above. Pt. was able to don underwear seated but anticipate difficulty with socks due to pain and bending limitations in joints. Toilet Transfers Toilet Transfer: Unable to assess Toilet Transfers Comments: Did not ambulate that distance; anticipate min A based on height Functional Mobility: Functional Mobility Functional - Mobility Device: Rolling Walker Activity: Other Assist Level: Stand by assistance Functional Mobility Comments: SBA to take a few steps from bed to chair Transfers Sit to stand: Stand by assistance Stand to sit: Stand by assistance Transfer Comments: Verbal cues for technique; pulls from walker to stand despite education and cues Bed Mobility Bed mobility Supine to Sit: Stand by assistance(instructed through log roll technique) Comment: Up to chair at end of eval Seated and Standing Balance: Balance Sitting Balance: Independent Standing Balance: Stand by assistance Functional Endurance: Activity Tolerance Activity Tolerance: Patient Tolerated treatment well D/C Recommendations: OT D/C RECOMMENDATIONS REQUIRES OT FOLLOW UP: Yes Equipment Recommendations: OT Equipment Recommendations Other: Continue to assess OT Education: OT Education OT Education: OT Role, Plan of Care Patient Education: Educated pt. on role of acute care OT Barriers to Learning: None OT Follow Up: OT D/C RECOMMENDATIONS REQUIRES OT FOLLOW UP: Yes Assessment/Discharge Disposition: Assessment: Pt. is a 64 year old man from home with spouse who presents to [facility] with the above deficits which impact his ability to perform ADLs and IADLs. Pt. would benefit from skilled OT to maximize independence and safety with ADL tasks. Performance deficits / Impairments: Decreased functional mobility , Decreased ADL status, Decreasedstrength, Decreased endurance, Decreased balance, Decreased high-level IADLs Prognosis: Good Discharge Recommendations: Continue to assess pending progress Decision Making: Medium Complexity History: Pt's medical history is moderately complex Exam: Pt. has 6 performance deficits Assistance / Modification: Pt. requires min A Six Click Score How much help for putting on and taking off regular lower body clothing?: A Little How much help for Bathing?: A Little How much help for Toileting?: A Little How much help for putting on and taking off regular upper body clothing?: A Little How much help for taking care of personal grooming?: None How much help for eating meals?: None AM-PAC Inpatient Daily Activity Raw Score: 20 AM-PAC Inpatient ADL T-Scale Score : 42.03 ADL Inpatient CMS 0-100% Score: 38.32 Plan: Plan Times per week: 1-3x Plan weeks: Length of acute stay Current Treatment Recommendations: Strengthening, Balance Training, Functional Mobility Training, Endurance Training, Neuromuscular Re-education, Pain Management, Safety Education & Training, Patient/Caregiver Education & Training, Equipment Evaluation, Education, & procurement, Self-Care / ADL, Home Management Training Goals: Patient will: - Improve functional endurance to tolerate/complete 60 mins of ADL's - Be Mod I in UB ADLs - Be Mod I in LB ADLs - Be Mod I in ADL transfers without LOB - Be Mod I in toileting tasks - Improve B hand fine motor coordination to WFL in order to manage clothing fasteners/self-care containers in a timely manner - Improve B UE strength and endurance to 4/5 in order to participate in self- care activities as projected. - Access appropriate D/C site with as few architectural barriers as possible. - Sequence self-care tasks with no verbal cues for safety Patient Goal: Patient goals : I want to get moving' Discussed and agreed upon: Yes Comments: Therapy Time: OT Individual Minutes Time In: 0835 Time Out: 0855 Minutes: 20 Eval: 20 minutes Electronically signed by: FE Drummond/Jaclyn 06/05/2019, 9:11 AM * Kelly Miguel, PT - 06/05/2019 9:10 AM EST Physical Therapy Med Surg Initial Assessment Facility/Department: [address] NEURO Room: N222/N222-01 NAME: Deondre Lr : 1955 (64 y.o.) CODE STATUS: Full Code Date of Service: 06/05/2019 Patient Diagnosis(es): Lumbar degenerative disc disease [M51.36] No chief complaint on file. Patient Active Problem List Diagnosis Date Noted Lumbar degenerative disc disease 06/04/2019 Past Medical History: Diagnosis Date CAD (coronary artery disease) Chronic back pain Chronic headaches Diabetes (HCC) Hypertension Restless leg syndrome Rheumatoid arthritis (HCC) Sleep apnea Past Surgical History: Procedure Laterality Date LUMBAR FUSION N/A 06/04/2019 L 4-5, L5-S1 DECOMPRESSION L 4-5, L5-S1 POSTEROLATERAL FUSION L5-S1 PLIF performed by Fanny Barone OR SHOULDER SURGERY SPINE SURGERY Chart Reviewed: Yes Patient assessed for rehabilitation services?: Yes Family / Caregiver Present: No General Comment Comments: Pt awake in bed, agreeable to PT eval Restrictions: Restrictions/Precautions: Up as Tolerated Position Activity Restriction Spinal Precautions: Limit bending/lifting/twisting Other position/activity restrictions: per telephone, Dr. Tovar reports no brace while pt has saul SUBJECTIVE: Subjective: Pt reports he has had back pain since 1990 Pain Pre Treatment Pain Screening Pain at present: 8 Intervention List: Patient able to continue with treatment;Nurse/physician notified Post Treatment Pain Screening: Prior Level of Function: Social/Functional History Lives With: Spouse Type of Home: House Home Layout: One level, Laundry in basement Home Access: Stairs to enter with rails Entrance Stairs - Number of Steps: 3 Bathroom Shower/Tub: Walk-in shower Bathroom Equipment: Built-in shower seat Home Equipment: Cane ADL Assistance: Independent Homemaking Assistance: Independent Ambulation Assistance: Independent(cane on bad days and on stairs) Transfer Assistance: Independent Active Publicity Director: Yes OBJECTIVE: Vision: Within Functional Limits Hearing: Exceptions to WFL Cognition: Overall Orientation Status: Within Functional Limits Follows Commands: Within Functional Limits ROM: RLE AROM: WFL LLE AROM : WFL Strength: Strength RLE Comment: hip strength grossly 4-/5, WFL knee and ankle Strength LLE Comment: hip strength grossly 4-/5, WFL knee and ankle Neuro: Balance Sitting - Static: Good Sitting - Dynamic: Good Standing - Static: Fair Standing - Dynamic: Fair Bed mobility Supine to Sit: Stand by assistance(instructed through log roll technique) Transfers Sit to Stand: Stand by assistance Stand to sit: Stand by assistance Bed to Chair: Stand by assistance(cues for sequencing and safety) Ambulation Ambulation?: Yes Ambulation 1 Surface: level tile Device: Rolling Walker Assistance: Stand by assistance Quality of Gait: short step length, slow beto, good posture Distance: 5 ft Activity Tolerance Activity Tolerance: Patient Tolerated treatment well PT Education PT Education: Goals;PT Role;Transfer Training;Plan of Care;General Safety Patient Education: spinal precautions, compensating for pain ASSESSMENT: Body structures, Functions, Activity limitations: Decreased functional mobility ;Decreased strength;Decreased endurance;Decreased balance;Increased pain Decision Making: Medium Complexity History: high Exam: medium Clinical Presentation: medium Prognosis: Good Patient Education: spinal precautions, compensating for pain DISCHARGE RECOMMENDATIONS: Discharge Recommendations: Continue to assess pending progress, Patient would benefit from continued therapy after discharge Assessment: Pt demonstrates the above deficits and decline in functional mobility s/p lumbar surgery. Pt would benefit from physical therapy to address above deficits and allow for safe return home at highest level of function, decrease risk for falls, and improve QOL. REQUIRES PT FOLLOW UP: Yes PLAN OF CARE: Plan Times per week: 5-7 Current Treatment Recommendations: Strengthening, Functional Mobility Training, Neuromuscular Re-education, Home Exercise Program, Equipment Evaluation, Education, & procurement, Transfer Training, Gait Training, Safety Education & Training, Balance Training, Endurance Training, Stair training, Pain Management, Patient/Caregiver Education & Training, Positioning Safety Devices Type of devices: Call light within reach, Chair alarm in place, Nurse notified Goals: Patient goals : to go home 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 dealer goals 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 dealer goal 1: pt to be indep with bed mobility utilizing log roll 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 dealer goal 2: pt to be indep with transfers 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 dealer goal 3: pt to ambulate >100 ft with WW vs cane mod indep [facility] goal 4: pt to navigate 4 steps with 1 HR, cane supervision assist [facility] (6 CLICK) BASIC MOBILITY AM-PAC Inpatient Mobility Raw Score : 18 Therapy Time: Individual Time In 0835 Time Out 0855 Minutes 20 Kelly Miguel PT, 06/05/19 at 9:11 AM * Venus Jackson RN - 06/05/2019 8:11 AM EST 0811 handoff complete at 0700. This RN assumed care for this pt. Pt is currently sitting in bed eatwith c/o pain 01/03. Medicated per JUL. Neuro check complete. 1025 pt up to chair with PT this morning. PT still has c/o pain /10. Medicated with morphine. 1129 assessment complete. Pt A&OX4. Lungs are clear bilaterally. S1, S2 noted. Abdomen soft, noguarding. Bowel sounds active x4. Neuro check unchanged. Pt is very stiff with ambulation and stillrates pain 01/03. Pt Now off floor to x-ray via cart. 1648 pain remains uncontrolled. 1655 Dr. Tovar called to check on pt. Changed fentanyl patch to 50mcg 1748 fentanyl patch placed on the upper left back * Marium Mraley RN - 06/04/2019 3:31 PM EST Report to [address] [place] [address] RN, pt currently on his cell phone and calm. Call placed to his son Luis to inform him of his dad's room and ph.number. Transport at bedside. * Marium Marley RN - 06/04/2019 12:45 PM EST Lab at bedside for lab draw. * Skye Perkins RN - 06/04/2019 7:36 AM EST avionic technician here in preop to draw confirmation lab tube for surgery. [facility] this [facility] Phone: [phone] 187-160601-11-2020 Hospital course Narrative* Hernandez Tovar MD - 06/06/2019 9:13 AM EST Discharge summary This patient Deondre Lr was admitted to the hospital on 06/04/2019 after undergoing Procedure(s) (LRB): L 4-5, L5-S1 DECOMPRESSION L 4-5, L5-S1 POSTEROLATERAL FUSION L5-S1 PLIF (N/A) without complications that morning. Hospital course Patient tolerated surgical procedure well and there was no complications. Patient progressed adequtly through their recovery during hospital stay including PT and rehabilitation. Patient was then D/C on to Home in stable condition. Patient was instructed on the use of pain medications, the signs and symptoms of infection, and wasgiven our number to call should they have any questions or concerns following discharge. Patient : 1955 Age: 64 years Gender: Male Order Date: 06/05/2019 11:00 AM. Exam: XR LUMBAR SPINE (2-3 VIEWS) Number of Views: 3 Indication: Postoperative evaluation Comparison: None Findings: Posterior spinal fixation L4-S1, with interbody fusion device placement at L5-S1. Surgical saul. No unexpected postoperative concave features are seen. Surgical clips right upper abdomen. Nonobstructive bowel gas pattern. Mild degenerative changes bilateral hips. Impression Impression: 1. Postoperative changes as described above without unexpected postoperative complicating features. 2. Mild bilateral osteoarthritis of the hips. documented [facility] this [facility] Phone: 1([phone] 787-175001-11-2020 Hospital Discharge instructions* Discharge Instr - HODAN* Hernandez Tovar MD - 06/06/2019 9:12 AM EST Continuity of Care Form Patient Name: Deondre Lr : 1955 Admit date: 06/04/2019 Discharge date: Code Status Order: Full Code Advance Directives: Advance Care Flowsheet Documentation Date/Time Healthcare Directive Type of Healthcare Directive Copy in Chart Healthcare Agent Appointed Healthcare Agent's Name Healthcare Agent's Phone Number 06/04/19 0622 No, patient does not have an advance directive for healthcare treatment -- -- -- -- -- Admitting Physician: Hernandez Tovar MD PCP: Mike Yuan MD Discharging Nurse: Discharging Hospital Unit/Room#: N222/N222-01 Discharging Unit Phone Number: Emergency Contact: Extended Emergency Contact Information Primary Emergency Contact: marlene lr Relation: Spouse Past Surgical History: Past Surgical History: Procedure Laterality Date LUMBAR FUSION N/A 06/04/2019 L 4-5, L5-S1 DECOMPRESSION L 4-5, L5-S1 POSTEROLATERAL FUSION L5-S1 PLIF performed by Fanny Barone MLOZ OR SHOULDER SURGERY SPINE SURGERY Immunization History: There is no immunization history on file for this patient. Active Problems: Patient Active Problem List Diagnosis Code Lumbar degenerative disc disease M51.36 Isolation/Infection: Isolation No Isolation Patient Infection Status None to display Nurse Assessment: Last Vital Signs: BP 130/71 Pulse 92 Temp 97 F (36.1 C) (Oral) Resp 16 Ht 5' 4 (1.626 m) Wt 175 lb (79.4 kg) SpO2 95% BMI 30.04 kg/m Last documented pain score (0-10 scale): Pain Level: 8 Last Weight: Wt Readings from Last 1 Encounters: 06/04/19 175 lb (79.4 kg) Mental Status: {IP PT MENTAL STATUS:} IV Access: { HODAN IV ACCESS:832966648} Nursing Mobility/ADLs: Walking {CHP DME ADLs:794340319} Transfer {CHP DME ADLs:813670109} Bathing {CHP DME ADLs:250346728} Dressing {CHP DME ADLs:314011581} Toileting {CHP DME ADLs:977898292} Feeding {CHP DME ADLs:385288345} Signal Integrity Engineer {CHP DME ADLs:000344759} Med Delivery { HODAN MED Delivery:677651036} Wound Care Documentation and Therapy: Elimination: Continence: Bowel: {YES / NO:} Bladder: {YES / NO:} Urinary Catheter: {Urinary Catheter:451817950} Colostomy/Ileostomy/Ileal Conduit: {YES / NO:} Date of Last BM: Intake/Output Summary (Last 24 hours) at 06/06/2019 0911 Last data filed at 06/06/2019 0902 Gross per 24 hour Intake 2280 ml Output 695 ml Net 1585 ml I/O last 3 completed shifts: In: 3520 [P.O.:1520; I.V.:1999] Out: 1325 [Urine:900; Drains:425] Safety Concerns: { HODAN Safety Concerns:495121476} Impairments/Disabilities: { HODAN Impairments/Disabilities:845954949} Nutrition Therapy: Current Nutrition Therapy: { HODAN Diet List:965657309} Routes of Feeding: {CHP DME Other Feedings:848712030} Liquids: {Biomathematician liquid thickness:50924} Daily Fluid Restriction: {CHP DME Yes amt example:969526092} Last Modified Barium Swallow with Video (Video Swallowing Test): {Done Not Done Date:} Treatments at the Time of Hospital Discharge: Respiratory Treatments: Oxygen Therapy: {Therapy; copd oxygen:89404} Ventilator: {[facility] Vent List:174567237} Rehab Therapies: {THERAPEUTIC INTERVENTION:7649023639} Weight Bearing Status/Restrictions: { CC Weight Bearin} Other Medical Equipment (for information only, NOT a DME order): {EQUIPMENT:532661893} Other Treatments: Patient's personal belongings (please select all that are sent with patient): {P DME Belongings:193967741} RN SIGNATURE: {Esignature:203223112} CASE MANAGEMENT/SOCIAL WORK SECTION Inpatient Status Date: Readmission Risk Assessment Score: Readmission Risk Risk of Unplanned Readmission: 12 Discharging to Facility/ Agency Name: Address: Phone: Fax: Dialysis Facility (if applicable) Name: Address: Dialysis Schedule: Phone: Fax: Histopath Tech/Automatic I Threading Machine Feeder signature: {Esignature:901955368} PHYSICIAN SECTION Prognosis: {Prognosis:2961405610} Condition at Discharge: { Patient Condition:556732599} Rehab Potential (if transferring to Rehab): {Prognosis:0536986531} Recommended Labs or Other Treatments After Discharge: Physician Certification: I certify the above information and transfer of Deondre Lr is necessaryfor the continuing treatment of the diagnosis listed and that he requires {Admit to Appropriate Level of Care:86331} for {GREATER/LESS:958921400} 30 days. Update Admission H&P: {CHP DME Changes in HandP:969617865} PHYSICIAN SIGNATURE: * Additional Instructions* Hellen Lopez - 06/06/2019 medication given may have significant effects after discharge. Therefore on the day of surgery: 1) you should be accompanied by a responsible adult upon discharge and for 24 hours after surgery. Do not drive a motor vehicle, operate machinery, power tools or appliance, drink alcoholic beverages, or make critical decisions for 24 hours 2) Be aware of dizziness, which may cause a fall. Change positions slowly. 3) Eating: you may resume your regular diet but it is better to increase intake slowly with mild foods and working up to your regular diet. 4) Nausea/Vomiting: Nausea and vomiting may occur as you become more active or begin to increase food intake. If this should happen, decrease activity and return to liquids. 5) Pain: Your surgeon may have given you a prescription for pain medication. Take pain medication with food as prescribed. Pain medication may cause constipation, so drink plenty of fluids. You may need to use laxatives. 6) Ice: You may use a cool pack to operative site for 20 min 5-6 times a day as needed for comfort. 8) Dressing: Change dressing as frequently as needed to keep clean and dry. Remove all sticky tape in 5 days. May shower in three days. Do not put soap or soak on the incision until healed. 9) INCREASE ACTIVITY TOLERATED AND INSTRUCTED. GO BY HOW YOU FEEL. 10) See physical therapist when advised by your physician 11) Call your doctor at [phone] for an appointment (or follow up as scheduled). 12) If have an order for X-Rays have done within a week before your follow up appointment. ? Contact OFFICE IF o Increased redness, swelling, excess drainage, and/or pain to surgery site. As well as new onset fevers and or chills. These could signify an infection. o Calf or thigh tenderness to touch as well as increased swelling or redness. This could signify a clot formation. o Numbness or tingling to an area around the incision site or below the incision site (toes). Or ifthe operative extremity becomes cold, blue. o Any rash appears, increased or new onset nausea/vomiting occur. This may indicate a reaction to amedication. o Temp is 38.5 C (101F) 12) If you have any concerns or questions, please call OFFICE. The 24- hour phone is [phone] 13) If you are unable to contact your surgeon, in an emergency situation, go to the nearest hospital emergency room. 14) shower on Saturday 15) no driving [facility] WILL FOLLOW FOR PT/OT . THEIR PHONE NUMBER IS [phone] documented in this [facility] Phone: 1(467) 337-179601-09-2020 NoteFLUORO FOR SURGICAL PROCEDURES : 06/04/2019 6:30 AM CLINICAL HISTORY: Lumbar Fusion . COMPARISON: None available. Intraoperative fluoroscopy was provided for Dr. Tovar procedure. A total of 49.8 seconds of fluoroscopy was used, with 6 fluoroscopic stills saved. No diagnostic images were obtained. Please see Dr. Tovar surgical notes for completeness.[facility] Phone: [phone]) 238-200801-09-2020 Geetha Cooper Incoming Radiant Results From [facility] - 06/04/2019 10:53 AM EST FLUORO FOR SURGICAL PROCEDURES : 06/04/2019 6:30 AM CLINICAL HISTORY: Lumbar Fusion . COMPARISON: None available. Intraoperative fluoroscopy was provided for Dr. Tovar procedure. A total of 49.8 seconds of fluoroscopy was used, with 6 fluoroscopic stills saved. No diagnostic images were obtained. Please see Dr. Tovar surgical notes for completeness. 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 documented in this encounter [facility] Phone: evalworaxf note* Diagnosis Pain Generalized pain documented in this encounter [facility] Phone: evalsllnew note* Diagnosis Post-op pain- Primary Other acute postoperative pain Lumbar degenerative disc disease Degeneration of lumbar or lumbosacral intervertebral disc documented in this encounter [facility] Phone: [email or web address] note* Diagnosis Left rotator cuff tear arthropathy- Primary Post-op pain Other acute postoperative pain Atrial fibrillation (HCC) Atrial fibrillation Essential hypertension Unspecified essential hypertension Type 2 diabetes mellitus without complication (HCC) S/P reverse total shoulder arthroplasty, left documented in this encounter [facility] Phone: evaluation note* Diagnosis Closed fracture of shaft of left humerus, unspecified fracture morphology, initial encounter- Primary documented in this encounter ALEYDA ERICKSON [facility] Phone: evaluation noteNo assessment information available [facility] Work Phone: History general Narrative - Reported* Type Description Date Medical History Lumbar back pain wit h radiculopathy affecting left lower extremity Medical History Chronic renal disease, stage IV Medical History Hyperglycemia due to type 2 diab etes mellitus Medical History Essential (primary) hypertension Medical History Depression, recurrent Medical History Bilateral flank pain Medical History Unspecified deficiency anemia Surgical History MULTIPLE SURGERIES ON SHOULDER 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 [place] [id number] [address] [phone] [place] [address] Referral ID Status Reason Start Date Expiration Date Visits Re quested Visits Authorized [id number] 1 1 [facility] Phone: reason for visit Narrative* Auth/Cert Specialty Diagnoses / Procedures Referred By Florecita lopez Referred To Contact Diagnoses Rotator cuff arthropathy of both shoulders ROTATOR CUFF ARTHROPATHY, LEFT SHOULDER Procedures DE RECONSTR TOTAL SHOULDER IMPLANT SHOULDER TOTAL ARTHROPLASTY REVERSE Zenia Molina MD [address] [place] [phone] [address] [phone] [place] [address] Referral ID Status Reason Start Date Expiration Date Visits Re quested Visits Authorized 1 1 [facility] Phone: Summary Purpose Family History No Family History Records FoundNo Family History Records FoundNo Family History Records FoundNo Family History Records FoundNo Family History Records FoundNo Family History Records FoundNo Family History Records Found Advance Directives No Advanced Directives Records FoundDocuments on File Type Date Recorded Patient Cereal Supervisor Expl anation ACP-Advance Directive ACP-Power of Abe Teacher Latest Code Status on File Code Status Date Activated Date Inactivated Comments Full Code 06/04/2019 3:37 PM 06/08/2019 4:48 PM Documents on File Type Date Recorded Patient Cereal Supervisor Expl anation ACP-Advance Directive ACP-Power of Abe Teacher Latest Code Status on File Code Status Date Activated Date Inactivated Comments Full Code 12/06/2020 3:10 PM Full Code 06/04/2019 3:37 PM 06/08/2019 4:48 PM Latest Code Status on File Code Status Date Activated Date Inactivated Comments Full Code 12/06/2020 3:10 PM 12/08/2020 6:34 PM Latest Code Status on File Code Status Date Activated Date Inactivated Comments Full Code 12/06/2020 3:10 PM 12/08/2020 6:34 PM Full Code 06/04/2019 3:37 PM 06/08/2019 4:48 PM Documents on File Type Date Recorded Patient Cereal Supervisor Expl anation Advance Directives and Living Will Power of Abe Teacher Latest Code Status on File Code Status Date Activated Date Inactivated Comments Full Code 06/04/2019 3:37 PM Latest Code Status on File Code Status Date Activated Date Inactivated Comments Full Code 09/05/2021 1:40 PM Full Code 12/06/2020 3:10 PM 12/08/2020 6:34 PM Healthcare Agents on File Name Relationship Healthcare Agent Relationshi p Communication Marlene Lr Spouse Primary Decision Maker Latest Code Status on File Code Status Date Activated Date Inactivated Comments Full Code 09/05/2021 1:40 PM 09/06/2021 4:31 PM Full Code 12/06/2020 3:10 PM 12/08/2020 6:34 PM Healthcare Agents on File Name Relationship Healthcare Agent Relationshi p Communication Marlene Lr Spouse Primary Decision Maker Advance Directive Response Recorded Date/ Time Advance Directives No December 06 2:13pm Reason for Referral Status Reason Specialty Diagnoses / Procedures Referre d By Contact Referred To Contact Closed Radiology Diagnoses Pain Procedures Fluoro For Surgical Procedures Hernandez Tovar MD [address] [phone] Status Reason Specialty Diagnoses / Procedures Referred By Contact Referred To Contact Open Specialty Services Required Home Health Services Diagnoses Lumbar degenerative disc disease Hernandez Tovar MD [address] [facility], [address] [place] [address] Reason *FU 02/12 [place] [facility] - balance issues, falls. Normal CT in ER May - labs earlier this summer. thanks Diagnosis 1 Balance disorder (R2 6.89) Referral Organization [facility] walter Referring Provider First Name Mike Referring Provider Last Name Gee Referring Provider Specialty Family [facility] cine Referred Organization [facility] Referred Provider Reilly Howard Referred Address [address] [place], [place],[address] Referred Provider Specialty Neurology Referral Priority Routine General Notes Elaine Hernandez 11:54:53 AM >received today, attachments made, notes locked, referral faxed Chief Complaint and Reason for Visit Chief Complaint unsteady gait Additional Source Comments (unrecognized sect ion and content) No Status Records FoundNo Status Records FoundNo Status Records FoundNo Status Records FoundNo Status Records FoundNo Status Records FoundNo Status Records Found INFORMATION SOURCE (unrecogn ized section and content) DATE CREATED AUTHOR 11/27/2020 [facility] DATE CREATED AUTHOR AUTHOR'S ORGANIZ ATION 12/09/2020 [facility] DATE CREATED AUTHOR AUTHOR'S ORGANIZ ATION 12/13/2021 [facility]ia DATE CREATED AUTHOR AUTHOR'S ORGANIZ ATION 07/19/2022 [facility] DATE CREATED AUTHOR AUTHOR'S ORGANIZ ATION 11/02/2022 [facility] DATE CREATED AUTHOR AUTHOR'S ORGANIZ ATION 12/24/2022 [facility] DATE CREATED AUTHOR AUTHOR'S ORGANIZ ATION 03/31/2023 [facility] Reason for Visit (unrecogniz ed section and content) Status Reason Specialty Diagnoses / Procedures Referre d By Contact Referred To Contact Diagnoses RADICULOPATHY; PSEUDOARTHROSIS; SPONDYLOSIS; FACET ARTHROPATHY Procedures DE LUMBAR SPINE FUSN,POST INTRBDY L 4-5 PLIF (POSTERIOR LUMBAR INTERBODY FUSION) INFUSE 2 HOURS/ 1 C-ARM/ MAX TABLE/ SSEP/ CELL SAVERS/ NUVASIVE (PAT [facility]) DR. TOVAR TO START AT 9:00 AM Hernandez Tovar MD [address] [place] [id number] [facility] Status Reason Specialty Diagnoses / Procedures Referre d By Contact Referred To Contact Diagnoses Spondylosis SPONDYLOSIS, STENOSIS, FACET ARTHROPATHY, RADICULOPATHY Procedures DE LUMBAR SPINE FUSN,POST INTRBDY L 4-5 DECOMPRESSION, L5-S1 PLIF (POSTERIOR LUMBAR INTERBODY FUSION), 2 HOURS/ 1 C-ARM/ NUVASIVE/ SSEP/ CELL SAVERS/ MAX TABLE, OUTSIDE PAT AT [facility] Hernandez Tovar MD [address] [place] [address] [facility] Reason Comments Fall fell off bed this am onto left shoulder that just had surgery on about 2 months ago Ordered Prescriptions (unrec ognized section and content) Prescription Sig Dispensed Refills Start Date End Da te diazePAM (VALIUM) 5 MG tabletIndications:Muscle spasm Take 1 tablet by mouth every 8 hours as needed (muscle spasm) for up to 3 days. 12 tablet 0 12/08/2020 12/11/2020 sennosides-docusate sodium (SENOKOT-S) 8.6-50 MG tablet Take 1 tablet by mouth 2 times daily for 10 days 20 tablet 0 12/08/2020 12/18/2020 cephALEXin (KEFLEX) 500 MG capsule Take 1 capsule by mouth every 8 hours for 20 doses 20 capsule 0 12/08/2020 12/15/2020 HYDROcodone-acetaminophe n (NORCO) 7.5-325 MG per tabletIndications:Post-o p pain Take 1 tablet by mouth every 6 hours as needed for Pain for up to 7 days. 28 tablet 0 12/08/2020 12/15/2020 fentaNYL (DURAGESIC) 25 MCG/HRIndications:Post-o p pain Place 1 patch onto the skin every 72 hours for 9 days. 3 patch 0 12/10/2020 12/19/2020 Prescription Sig Dispensed Refills Start Date End Da te HYDROcodone-acetaminophe n (NORCO) 5-325 MG per tabletIndications:Post-o p pain Take 1 tablet by mouth every 4 hours as needed for Pain for up to 7 days. Intended supply: 7 days. Take lowest dose possible to manage pain 42 tablet 0 09/06/2021 09/13/2021 aspirin 325 MG EC tablet Take 1 tablet by mouth daily 30 tablet 3 09/06/2021 Prescription Sig Dispensed Refills Start Date End Da te HYDROcodone-acetaminophe n (NORCO) 5-325 MG per tabletIndications:Closed fracture of shaft of left humerus, unspecified fracture morphology, initial encounter Take 1 tablet by mouth every 6 hours as needed for Pain for up to 3 days. Intended supply: 3 days. Take lowest dose possible to manage pain 12 tablet 0 12/06/2021 12/09/2021 Scheduled Active and Recently Administ ered Medications (unrecognized section and content) Medication Order 12/06/2020 12/07/2020 12/08/2020 0.9 % sodium chloride bolus (COMPLETED) 500 mL (6.13 mL/kg), Intravenous, at 500 mL/hr, Administer over 1 Hours, ONCE, On Sat12/06/20 at 1600, For 1 dose 1540 (New Bag - Provider: Brielle Tompkins RN)1637 (Stopped - Provider: Brielle Tompkins RN) amitriptyline (ELAVIL) tablet 50 mg 50 mg, Oral, DAILY, First dose on Sat12/06/20 at 1530 1614 (Given - Provider: Brielle Tompkins RN) 0743 (Given - Provider: Adelaide [place]la, RAEANN) 0839 (Given - Provider: [place], RAEANN) ascorbic acid (VITAMIN C) tablet 500 mg 500 mg, Oral, DAILY, First dose on Sat12/06/20 at 1530 1614 (Given - Provider: Brielle Tompkins RN) 0743 (Given - Provider: [place], RAEANN) 0839 (Given - Provider: [place], RN) aspirin chewable tablet 81 mg 81 mg, Oral, DAILY, First dose on Sat12/06/20 at 1530 2032 (Not Given - Provider: Sasha Garcia RN - Reason: Other - Comment: given today) 0742 (Given - Provider: Adelaide [place]la RN) 0838 (Given - Provider: [place] RN) ceFAZolin (ANCEF) 2000 mg in dextrose 5 % 100 mL IVPB () 2,000 mg, Intravenous, EVERY 8 HOURS, 2 doses, First dose on Sat12/06/20 at 1530, Last dose on Sat12/06/20 at 2330, Post-op 0 (Due - Provider: Brielle Tompkins RN)2328 (New Bag - Provider: Sasha Garcia, RN)2358 (Stopped - Provider: Sasha Garcia RN) cephALEXin (KEFLEX) capsule 500 mg 500 mg, Oral, EVERY 8 HOURS SCHEDULED (3 times per day), First dose on Sat12/07/20 at 0600, For 20 doses 0602 (Given - Provider: Sasha Garcia RN)1331 (Given - Provider: Adelaide [place] RN)2124 (Given - Provider: Blanca Reyes, RAEANN) 0533 (Given - Provider: Blanca Reyes, RAEANN)1457 (Given - Provider: [place], RAEANN)2200 (Due) docusate sodium (COLACE) capsule 100 mg 100 mg, Oral, 2 TIMES DAILY, First dose on Sat12/06/20 at 2100 2040 (Given - Provider: Sasha Garcia RN) 0743 (Given - Provider: Adelaide [place] RN)2124 (Given - Provider: Blanca Reyes RN) 0839 (Given - Provider: [place] RN)2100 (Due) DULoxetine (CYMBALTA) extended release capsule 60 mg 60 mg, Oral, DAILY, First dose on Sat12/06/20 at 1530, Do not crush or break. May add contents of capsule to apple juice or apple sauce, but not chocolate. 1623 (Given - Provider: Brielle Tompkins RN) 0742 (Given - Provider: [place] RN) 0839 (Given - Provider: [place] RN) fentaNYL (DURAGESIC) 25 MCG/HR 1 patch 1 patch, Transdermal, Administer over 72 Hours, EVERY 72 HOURS, First dose on Sat12/07/20 at 1015 0924 (Patch Applied - Provider: Adelaide [place] RN) ferrous sulfate (IRON 325) tablet 325 mg 325 mg, Oral, DAILY WITH BREAKFAST, First dose on Sat12/07/20 at 0800 0743 (Given - Provider: Adelaide [place] RN) 0839 (Given - Provider: [place], RAEANN) flecainide (TAMBOCOR) tablet 100 mg 100 mg, Oral, 2 TIMES DAILY, First dose on Sat12/06/20 at 2100 2040 (Given - Provider: Sasha Garcia RN) 0742 (Given - Provider: Adelaide [place] RN)2124 (Given - Provider: Blanca Reyes RN) 0839 (Given - Provider: [place] RN)2100 (Due) folic acid (FOLVITE) tablet 1 mg 1 mg, Oral, DAILY, First dose on Sat12/06/20 at 1530 1623 (Given - Provider: Brielle Tompkins RN) 0744 (Given - Provider: [place], RAEANN) 0839 (Given - Provider: [place] RN) furosemide (LASIX) tablet 40 mg 40 mg, Oral, DAILY, First dose on Sat12/06/20 at 1530 1520 (Held - Provider: Brielle Tompkins RN - Reason: Contraindicated) 0743 (Given - Provider: Adelaide [place] RN) 0806 (Held - Provider: [place] RN - Reason: Other - Comment: BP <100) gabapentin (NEURONTIN) capsule 300 mg 300 mg, Oral, DAILY, First dose on Sat12/06/20 at 1530 1614 (Given - Provider: Brielle Tompkins RN) 0743 (Given - Provider: Adelaide [place] RN) 0839 (Given - Provider: [place], RAEANN) insulin glargine (LANTUS) injection vial 10 Units 10 Units, Subcutaneous, NIGHTLY, First dose on Sat12/06/20 at 2100 2221 (Given - Provider: Sasha Garcia RN) 2127 (Given - Provider: Blanca Reyes, RN) 2100 (Due) insulin lispro (HUMALOG) injection vial 0-12 Units 0-12 Units, Subcutaneous, 3 TIMES DAILY WITH MEALS, First dose on Sat12/06/20 at 1700, Medium Dose Corrective Algorithm Glucose: Dose: If <139 No Insulin 140-199 2 Units 200-249 4 Units 250-299 6 Units 300-349 8 Units 350-400 10 Units Above 400 12 Units 1623 (Given - Provider: Brielle Tompkins RN) 0750 (Given - Provider: [place], RAEANN)1215 (Given - Provider: [place], RN)1733 (Given - Provider: [place], RAEANN) 0842 (Given - Provider: [place], RAEANN)1205 (Not Given - Provider: [place], RAEANN - Reason: Order parameters not met)1700 (Due) insulin lispro (HUMALOG) injection vial 0-6 Units 0-6 Units, Subcutaneous, NIGHTLY, First dose on Sat12/06/20 at 2100, If continuous tube feedings/TPN/NPO, give correction dose based on result, no reduction in dose. If eating or bolus tube feeding: Medium Dose Corrective Algorithm Glucose: Dose: If <139 No Insulin 140-199 1 Unit 200-249 2 Units 250-299 3 Units 300-349 4 Units 350-400 5 Units Above 400 6 Units 2220 (Given - Provider: Sasha Garcia RN) 213 (Given - Provider: Blanca Reyes, RN) 2100 (Due) lisinopril (PRINIVIL;ZESTRIL) tablet 10 mg 10 mg, Oral, DAILY, First dose on Sat12/06/20 at 1530 1520 (Held - Provider: Brielle Tompkins RN - Reason: Contraindicated) 0743 (Given - Provider: [place], RAEANN) 0807 (Not Given - Provider: [place] RN - Reason: Other - Comment: BP <100) melatonin disintegrating tablet 5 mg 5 mg, Oral, NIGHTLY, First dose on Sat12/06/20 at 2100 2040 (Given - Provider: Sasha Garcia RN) 2123 (Given - Provider: Blanca Reyes, RN) 2100 (Due) metoprolol succinate (TOPROL XL) extended release tablet 50 mg (COMPLETED) 50 mg, Oral, RIVET STICKER TO O.R., On Sat12/06/20 at 0800, For 1 dose, Do not crush or chew. 0807 (Given - Provider: Deborah Ray RN) metoprolol succinate (TOPROL XL) extended release tablet 50 mg 50 mg, Oral, DAILY, First dose on Sat12/06/20 at 1530, Do not crush or chew. 1521 (Held - Provider: Brielle Tompkins RN - Reason: Contraindicated) 0742 (Given - Provider: Adelaide [place]la RN) 0807 (Not Given - Provider: [place] RN - Reason: Other - Comment: BP <100) pantoprazole (PROTONIX) tablet 20 mg 20 mg, Oral, DAILY, First dose on Sat12/06/20 at 1530, Do not crush or break. 1623 (Given - Provider: Brielle Tompkins RN) 0743 (Given - Provider: Adelaide [place] RN) 0839 (Given - Provider: [place] RN) prednisoLONE (ORAPRED) 15 MG/5ML solution 5 mg 5 mg, Oral, DAILY, First dose on Sat12/06/20 at 1530 1620 (Held - Provider: Brielle Tompkins RN - Reason: Other) 0756 (Not Given - Provider: [place] RN - Reason: Other - Comment: pt has not been taking) 0807 (Not Given - Provider: [place] RN - Reason: Other - Comment: pt not taking at home) sennosides-docusate sodium (SENOKOT-S) 8.6-50 MG tablet 1 tablet 1 tablet, Oral, 2 TIMES DAILY, First dose on Sat12/06/20 at 2100, Post-op 2044 (Not Given - Provider: Sasha Garcia RN - Reason: Patient/family refused) 0743 (Given - Provider: [place] RN)2124 (Given - Provider: Blanca Reyes, RN) 0839 (Given - Provider: [place] RN)2099 (Due) sertraline (ZOLOFT) tablet 100 mg 100 mg, Oral, 2 TIMES DAILY, First dose on Sat12/06/20 at 2100 2040 (Given - Provider: Sasha Garcia RN) 0743 (Given - Provider: [place] RN)2123 (Given - Provider: Blanca Reyes, RAEANN) 0839 (Given - Provider: [place] RN)2099 (Due) sodium chloride flush 0.9 % injection 10 mL 10 mL, Intravenous, EVERY 12 HOURS SCHEDULED (2 times per day), First dose on Sat12/06/20 at 2100, Post-op 2044 (Not Given - Provider: Sasha Garcia RN - Reason: IV Fluid Infusing) 0744 (Given - Provider: [place] RN)194 (Given - Provider: Blanca Reyes, RAEANN) 0849 (Given - Provider: Adelaide [place] RN)2099 (Due) sulfaSALAzine (AZULFIDINE) tablet 1,000 mg 1,000 mg, Oral, 2 TIMES DAILY, First dose on Sat12/06/20 at 2100 2219 (Given - Provider: Sasha Garcia RN - Comment: sent from pharmacy) 0742 (Given - Provider: Adelaide [place]la RN)2123 (Given - Provider: Blanca Reyes RN) 0839 (Given - Provider: [place] RN)2099 (Due) thiamine tablet 100 mg 100 mg, Oral, DAILY, First dose on Sat12/06/20 at 1530 1614 (Given - Provider: Brielle Tompkins RN) 0743 (Given - Provider: Adelaide [place] RN) 0839 (Given - Provider: Adelaide [place] RN) Continuous Medication Order 12/06/2020 12/07/2020 12/08/2020 0.45 % NaCl with KCl 20 mEq infusion 100 mL/hr, Intravenous, at 100 mL/hr, CONTINUOUS, Starting on Sat12/06/20 at 1530, Post-op 1612 (New Bag - Provider: Brielle Tompkins RN) 0255 (New Bag - Provider: Sasha Garcia RN) lactated ringers infusion (CANCELED) Intravenous, at 100 mL/hr, CONTINUOUS, Starting on Sat12/06/20 at 0800, Pre-op (day of surgery) 0750 (New Bag - Provider: Deborah Ray RN) PRN Medication Order 12/06/2020 12/07/2020 12/08/2020 0.9 % sodium chloride infusion 25 mL, Intravenous, at 100 mL/hr, PRN, If patient receiving piggyback infusions without ordered maintenance IV fluids or with frequent/long duration piggyback infusions, Starting on Sat12/06/20 at 1510, Administer at the same rate as the piggyback being infused., Post-op bacitracin ointment (CANCELED) PRN, Starting on Sat12/06/20 at 1331, Intra-op 1335 (Given - Provider: Hernandez Tovar MD) cyclobenzaprine (FLEXERIL) tablet 10 mg (CANCELED) 10 mg, Oral, 3 TIMES DAILY PRN, Muscle spasms, Starting on Sat12/06/20 at 1510, Post-op 1732 (Given - Provider: Brielle Tompkins RN) 0602 (Given - Provider: Sasha Garcia RN)1331 (Given - Provider: Adelaide [place]la, RAEANN)2124 (Given - Provider: Blanca Reyes, RAEANN) 0533 (Given - Provider: Blanca eRyes, RAEANN) dextrose 5 % solution 100 mL/hr, Intravenous, at 100 mL/hr, PRN, Low blood sugar, Starting on Sat12/06/20 at 1510, Start infusion following administration of dextrose 50% or glucagon. dextrose 50 % IV solution 12.5 g, Intravenous, PRN, Low blood sugar, Blood glucose less than 70 mg/dL and patient NOT ALERT or NPO., Starting on Sat12/06/20 at 1510, If patient does not respond within 5 minutes, repeat dose x1. Start D5W at 100 mL/hour until ordering provider can be reached. Repeat blood glucose in 15 minutes. If blood glucose is less than 70 mg/dL, repeat treatment and recheck blood glucose in 15 minutes x2. If using Glucostabilizer, dose as instructed per system. diazePAM (VALIUM) tablet 5 mg 5 mg, Oral, EVERY 6 HOURS PRN, muscle spasm, Starting on Shalonda 12/08/20 at 0814 0838 (Given - Provider: Adelaide [place]la, RAEANN)1457 (Given - Provider: Adelaide [place]la RN) fentaNYL (SUBLIMAZE) injection 50 mcg (CANCELED) 50 mcg, Intravenous, EVERY 10 MIN PRN, Pain Moderate (4-6), Starting on Sat12/06/20 at 0800, For 4 doses, Phase I - Initial therapy for moderate pain., PACU only 1424 (Given - Provider: Maribell Heath, RAEANN)1436 (Given - Provider: Maribell Heath, RAEANN) gelatin adsorbable (GELFOAM) sponge (CANCELED) PRN, Starting on Sat12/06/20 at 1015, Intra-op 1015 (Given - Provider: Hernandez Tovar MD - Comment: prn) glucagon (rDNA) injection 1 mg 1 mg, Intramuscular, PRN, Low blood sugar, Blood glucose less than 70 mg/dL and patient NOT ALERT or NPO and does not have IV access., Starting on Sat12/06/20 at 1510, After administration, attempt intravenous access and start D5W at 100 mL/hr. Repeat blood glucose in 15 minutes x2 and notify provider. glucose (GLUTOSE) 40 % oral gel 15 g 15 g, Oral, PRN, Low blood sugar, Starting on Sat12/06/20 at 1510, If blood glucose less than 50 mg/dL and patient ALERT and TOLERATING PO, give 2 tubes glucose gel. If blood glucose less than 70 mg/dL and patient ALERT and TOLERATING PO, give 1 tube glucose gel. Repeat blood glucose in 15 minutes. If blood glucose is less than 70 mg/dL, repeat treatment and recheck blood glucose in 15 minutes x2 and notify provider. HYDROcodone-acetaminophe n (NORCO) 7.5-325 MG per tablet 1 tablet 1 tablet, Oral, EVERY 4 HOURS PRN, Pain Moderate (4-6), Starting on Sat12/06/20 at 1510, Maximum dose of acetaminophen is 4000 mg from all sources in 24 hours. 1614 (Given - Provider: Brielle Tompkins RN)2038 (Given - Provider: Sasha Garcia RN) 0340 (Given - Provider: Sasha Garcia RN)0923 (Given - Provider: Adelaide Villela, RAEANN)1331 (Given - Provider: Adelaide V[place]la, RAEANN)1733 (Given - Provider: Adelaide [place]la, RAEANN)2124 (Given - Provider: Blanca Reyes, RAEANN) 0348 (Given - Provider: Blanca Reyes, RN)0839 (Given - Provider: Adelaide V[place]la, RAEANN)1243 (Given - Provider: Adelaide [place]la, RAEANN) HYDROmorphone (DILAUDID) injection 0.5 mg (CANCELED) 0.5 mg, Intravenous, EVERY 3 HOURS PRN, Pain Moderate (4-6), Starting on Sat12/06/20 at 1510, If oral and IV narcotics ordered, use oral first and only use IV if oral is ineffective or cannot take oral. Do Not give oral and IV within 1 hour of each other unless specifically ordered. 2351 (Given - Provider: Sasha Garcia RN) 0742 (Given - Provider: Adelaide Villela RN)1552 (Given - Provider: Adelaide [place]la, RAEANN)1945 (Given - Provider: Blanca Reyes, RAEANN)2319 (Given - Provider: Blanca Reyes, RAEANN) ondansetron (ZOFRAN) injection 4 mg(Linked Group 1) 4 mg, Intravenous, EVERY 6 HOURS PRN, Nausea, Vomiting, Starting on Sat12/06/20 at 1510, Administer if oral route cannot be used., Post-op promethazine (PHENERGAN) tablet 12.5 mg(Linked Group 1) 12.5 mg, Oral, EVERY 6 HOURS PRN, Nausea, Vomiting, Starting on Sat12/06/20 at 1510, Post-op sodium chloride 0.9 % 1,000 mL with gentamicin (GARAMYCIN) 80 mg (CANCELED) PRN, Starting on Sat12/06/20 at 1014, Intra-op 1014 (Given - Provider: Hernandez Tovar MD - Comment: prn for irrigation)1209 (Given - Provider: Hernandez Tovar MD - Comment: prn for irrigation) sodium chloride 0.9 % 1,000 mL with heparin (porcine) 30,000 Units (CANCELED) PRN, Starting on Sat12/06/20 at 1014, Intra-op 1014 (Given - Provider: Hernandez Tovar MD - Comment: prn for cell saver- not directly administered into patient) sodium chloride 0.9 % irrigation (COMPLETED) CONTINUOUS PRN, Starting on Sat12/06/20 at 1014, Intra-op 1014 (New Bag - Provider: Hernandez Tovar MD - Comment: prn for bipolar)1016 (New Bag - Provider: Hernandez Tovar MD - Comment: prn)1019 (New Bag - Provider: Hernandez Tovar MD - Comment: prn for cell saver) sodium chloride flush 0.9 % injection 10 mL 10 mL, Intravenous, PRN, Line Care, Starting on Sat12/06/20 at 1510, After every IV line use, Post-op thrombin kit (CANCELED) PRN, Starting on Sat12/06/20 at 1015, Intra-op 1015 (Given - Provider: Hernandez Tovar MD - Comment: prn) Linked Groups Order Group 1: promethazine (PHENERGAN) tablet 12.5 mgJump to med 12.5 mg, Oral, EVERY 6 HOURS PRN, Nausea, Vomiting, Starting on Sat12/06/20 at 1510, Post-op Or ondansetron (ZOFRAN) injection 4 mgJump to med 4 mg, Intravenous, EVERY 6 HOURS PRN, Nausea, Vomiting, Starting on Sat12/06/20 at 1510
Administer if oral route cannot be used.
Post-op Scheduled Medication Order 08/20/2021 08/21/2021 08/22/2021 acetaminophen (TYLENOL) tablet 650 mg 650 mg, Oral, ONCE, 1 dose, On Sat08/22/21 at 1030, Maximum dose of acetaminophen is 4000 mg from all sources in 24 hours., Pre-op (day of surgery) 1030 (Due) acetaminophen (TYLENOL) tablet 650 mg (COMPLETED) 650 mg, Oral, ONCE, 1 dose, On Sat08/22/21 at 1030, Two (2) hours prior to surgery., Pre-op (day of surgery) 1052 (Given - Provid er: Brigid Ferrari RN) ceFAZolin (ANCEF) 2000 mg in dextrose 5 % 100 mL IVPB 2,000 mg, IntraVENous, ONCE, 1 dose, On Sat08/22/21 at 1030, Antimicrobial Indications: Surgical Prophylaxis, Pre-op (day of surgery) 1030 (Due) dimenhyDRINATE (DRAMAMINE) tablet 50 mg 50 mg, Oral, ONCE, 1 dose, On Sat08/22/21 at 1030, Pre-op (day of surgery) 1030 (Due) dimenhyDRINATE (DRAMAMINE) tablet 50 mg (COMPLETED) 50 mg, Oral, ONCE, 1 dose, On Sat08/22/21 at 1030 1052 (Given - Provid er: Brigid Ferrari RN) Continuous Medication Order 08/20/2021 08/21/2021 08/22/2021 lactated ringers infusion IntraVENous, at 100 mL/hr, CONTINUOUS, Starting on Sat08/22/21 at 1030, Pre-op (day of surgery) 1030 (Due) lactated ringers infusion IntraVENous, at 100 mL/hr, CONTINUOUS, Starting on Sat08/22/21 at 1030 1051 (New Bag - Prov ider: Brigid Ferrari RN)1200 (Stopped - Provider: Brigid Ferrari RN) Scheduled Medication Order 09/04/2021 09/05/2021 09/06/2021 acetaminophen (TYLENOL) tablet 650 mg (COMPLETED) 650 mg, Oral, ONCE, 1 dose, On Sat09/05/21 at 0745, Maximum dose of acetaminophen is 4000 mg from all sources in 24 hours., Pre-op (day of surgery) 0814 (Given - Provider: Elena Clayton, RAEANN) acetaminophen (TYLENOL) tablet 650 mg 650 mg, Oral, EVERY 6 HOURS SCHEDULED (4 times per day), First dose on Sat09/05/21 at 1800, Until Discontinued, Maximum dose of acetaminophen is 4000 mg from all sources in 24 hours., Post-op 1707 (Given - Provider: Luz Marina Kerr RN)2346 (Given - Provider: Colin Younger, RAEANN) 0519 (Given - Provider: Raisa Fried RN)1144 (Given - Provider: Claudia Dasilva RN)1800 (Due) amitriptyline (ELAVIL) tablet 50 mg 50 mg, Oral, DAILY, First dose on Sat09/05/21 at 1500, Until Discontinued 1407 (Given - Provider: Luz Marina Kerr RN) 0810 (Given - Provider: Claudia Dasilva RN) ascorbic acid (VITAMIN C) tablet 500 mg 500 mg, Oral, DAILY, First dose on Sat09/06/21 at 0900, Until Discontinued 0810 (Given - Provid er: Claudia Dasilva RN) aspirin EC tablet 325 mg 325 mg, Oral, DAILY, First dose on Sat09/06/21 at 0900, Until Discontinued, Do not crush or break. 0810 (Given - Provid er: Claudia Dasilva RN) ceFAZolin (ANCEF) 2000 mg in dextrose 5 % 100 mL IVPB (COMPLETED) 2,000 mg, IntraVENous, ONCE, 1 dose, On Sat09/05/21 at 0900, Antimicrobial Indications: Surgical Prophylaxis, Pre-op (day of surgery) 0848 (New Bag - Provider: Gem Parker RN)0918 (Stopped - Provider: Claudia Dasilva RN) ceFAZolin (ANCEF) 2000 mg in dextrose 5 % 100 mL IVPB (COMPLETED) 2,000 mg, IntraVENous, EVERY 8 HOURS, 2 doses, First dose on Sat09/05/21 at 1700, Last dose on Sat09/06/21 at 0100, Antimicrobial Indications: Surgical Prophylaxis, Post-op 1624 (New Bag - Provider: Luz Marina Kerr RN)1655 (Stopped - Provider: Luz Marina Kerr RN) 0042 (New Bag - Provider: Colin Younger RN)0115 (Stopped - Provider: Colin Younger RN) dimenhyDRINATE (DRAMAMINE) tablet 50 mg (COMPLETED) 50 mg, Oral, ONCE, 1 dose, On Sat09/05/21 at 0745, Pre-op (day of surgery) 0814 (Given - Provider: Elena Clayton RN) docusate sodium (COLACE) capsule 100 mg 100 mg, Oral, 2 TIMES DAILY, First dose on Sat09/05/21 at 2100, Until Discontinued 2118 (Given - Provider: Colin Younger RN) 0810 (Given - Provider: Claudia Dasilva RN)2100 (Due) DULoxetine (CYMBALTA) extended release capsule 60 mg 60 mg, Oral, DAILY, First dose on Sat09/05/21 at 1500, Until Discontinued, Do not crush or break. May add contents of capsule to apple juice or apple sauce, but not chocolate. 1408 (Given - Provider: Luz Marina Kerr RN) 08 (Given - Provider: Claudia Dasilva RN) ferrous sulfate (IRON 325) tablet 325 mg 325 mg, Oral, DAILY WITH BREAKFAST, First dose on Sat09/06/21 at 0800, Until Discontinued 809 (Given - Provid er: Claudia Dasilva RN) flecainide (TAMBOCOR) tablet 100 mg 100 mg, Oral, 2 TIMES DAILY, First dose on Sat09/05/21 at 2100, Until Discontinued 2118 (Given - Provider: Colin Younger RN) 809 (Given - Provider: Claudia Dasilva RN)2099 (Due) folic acid (FOLVITE) tablet 1 mg 1 mg, Oral, DAILY, First dose on Sat09/06/21 at 0900, Until Discontinued 809 (Given - Provid er: Claudia Dasilva RN) furosemide (LASIX) tablet 40 mg 40 mg, Oral, DAILY, First dose on Sat09/05/21 at 1500, Until Discontinued 1407 (Given - Provider: Luz Marina Kerr RN) 809 (Given - Provider: Claudia Dasilva RN) gabapentin (NEURONTIN) capsule 100 mg (COMPLETED) 100 mg, Oral, ONCE, 1 dose, On Sat09/05/21 at 0745, Pre-op (day of surgery) 0814 (Given - Provider: Elena Clayton RN) gabapentin (NEURONTIN) capsule 300 mg 300 mg, Oral, DAILY, First dose (after last modification) on Sat09/06/21 at 0900, Until Discontinued 809 (Given - Provid er: Claudia Dasilva RN) insulin glargine (LANTUS) injection vial 10 Units 10 Units, SubCUTAneous, NIGHTLY, First dose on Sat09/05/21 at 2100, Until Discontinued 2118 (Given - Provider: Colin Younger RN) 2099 (Due) insulin lispro (HUMALOG) injection vial 0-3 Units 0-3 Units, SubCUTAneous, NIGHTLY, First dose on Sat09/05/21 at 2100, Until Discontinued, If continuous tube feedings/TPN/NPO, give correction dose based on result, no reduction in dose. If eating or bolus tube feeding: Low Dose Bedtime Correction Algorithm Glucose: Dose: 70-139 No Insulin 140-249 1 Unit 250-349 2 Units 350 and above 3 Units 2120 (Not Given - Provider: Colin Younger RN - Reason: Patient/family refused - Comment: [phone]) 2099 (Due) insulin lispro (HUMALOG) injection vial 0-6 Units 0-6 Units, SubCUTAneous, 3 TIMES DAILY WITH MEALS, First dose on Sat09/05/21 at 1715, Until Discontinued, Low Dose Correction Algorithm Glucose: Dose: 70-139 No Insulin 140-199 1 Unit 200-249 2 Units 250-299 3 Units 300-349 4 Units 350-399 5 Units 400 and above 6 Units 1706 (Given - Provider: Luz Marina Kerr RN - Comment: fsbs [phone]) 0809 (Given - Provider: Claudia Dasilva RN - Comment: [phone] (Given - Provider: Claudia Dasilva RN)1700 (Due) lisinopril (PRINIVIL;ZESTRIL) tablet 10 mg 10 mg, Oral, DAILY, First dose on Sat09/05/21 at 1500, Until Discontinued 1407 (Given - Provider: Luz Marina Kerr RN) 0810 (Given - Provider: Claudia Dasilva RN) melatonin tablet 5 mg 5 mg, Oral, NIGHTLY, First dose on Sat09/05/21 at 2100, Until Discontinued 2118 (Given - Provider: Colin Younger RN) 2099 (Due) metoprolol succinate (TOPROL XL) extended release tablet 50 mg (COMPLETED) 50 mg, Oral, NOW, 1 dose, On Sat09/05/21 at 0830, Do not crush or chew. 0824 (Given - Provider: Elena Clayton RN) metoprolol succinate (TOPROL XL) extended release tablet 50 mg 50 mg, Oral, DAILY, First dose (after last modification) on Sat09/06/21 at 0900, Until Discontinued, Do not crush or chew. 0810 (Given - Provid er: Claudia Dasilva RN) pantoprazole (PROTONIX) tablet 40 mg 40 mg, Oral, DAILY BEFORE BREAKFAST, First dose on Sat09/06/21 at 0700, Until Discontinued, Do not crush or break. Substituted for Omeprazole (PRILOSEC). 0650 (Given - Provid er: Claudia Dasilva RN) sertraline (ZOLOFT) tablet 100 mg 100 mg, Oral, 2 TIMES DAILY, First dose on Sat09/05/21 at 2100, Until Discontinued 2118 (Given - Provider: Colin Younger RN) 0810 (Given - Provider: Claudia Dasilva RN)2099 (Due) sodium chloride flush 0.9 % injection 10 mL 10 mL, IntraVENous, EVERY 12 HOURS SCHEDULED (2 times per day), First dose on Sat09/05/21 at 2100, Until Discontinued, Post-op 2119 (Not Given - Provider: Colin Younger RN - Reason: IV Fluid Infusing) 0757 (Not Given - Provider: Claudia Dasilva RN - Reason: IV Fluid Infusing)2099 (Due) sulfaSALAzine (AZULFIDINE) tablet 1,000 mg 1,000 mg, Oral, 2 TIMES DAILY, First dose on Sat09/05/21 at 2100, Until Discontinued 2118 (Given - Provider: Colin Younger RN) 0810 (Given - Provider: Claudia Dasilva RN)2099 (Due) thiamine mononitrate tablet 100 mg 100 mg, Oral, DAILY, First dose on Sat09/06/21 at 0900, Until Discontinued 08 (Given - Provid er: Claudia Dasilva RN) Continuous Medication Order 09/04/2021 09/05/2021 09/06/2021 0.9 % sodium chloride infusion IntraVENous, at 100 mL/hr, CONTINUOUS, Starting on Sat09/05/21 at 1400, Post-op 1406 (New Bag - Provider: Luz Marina eKrr RN) 0041 (New Bag - Provider: Colin Younger RN)1144 (Stopped - Provider: Claudia Dasilva RN) lactated ringers infusion (CANCELED) IntraVENous, at 100 mL/hr, CONTINUOUS, Starting on Sat09/05/21 at 0745, Pre-op (day of surgery) 0813 (New Bag - Provider: Elena Clayton RN)0851 (NoRateChange - Provider: IRAIS Regalado CRNA)1055 (Paused - Provider: IRAIS Regalado CRNA - Comment: Switch to gravity)1056 (Restarted - Provider: IRAIS Regalado CRNA)1100 (Stopped - Provider: IRAIS Regalado CRNA)1127 (New Bag - Provider: Pamella Singh, RN)1230 (Stopped - Provider: Claudia Dasilva, RAEANN) PRN Medication Order 09/04/2021 09/05/2021 09/06/2021 0.9 % sodium chloride infusion 25 mL, IntraVENous, at 100 mL/hr, PRN, If patient receiving piggyback infusions without ordered maintenance IV fluids or with frequent/long duration piggyback infusions, Starting on Sat09/05/21 at 1340, Administer at the same rate as the piggyback being infused., Post-op ceFAZolin (ANCEF) 2,000 mg in sodium chloride 0.9 % 3,000 mL (CANCELED) PRN, Starting on Sat09/05/21 at 0945, Intra-op 0945 (Given - Provider: Zenia Molina MD - Comment: 80 mg gent added to ancef and saline) dextrose 5 % solution 100 mL/hr, IntraVENous, PRN, Low blood sugar, Starting on Sat09/05/21 at 1340, Start infusion following administration of dextrose 50% or glucagon. dextrose 5 % solution 100 mL/hr, IntraVENous, PRN, Low blood sugar, Starting on Sat09/05/21 at 1651, Start infusion following administration of dextrose 50% or glucagon. dextrose 50 % IV solution 12.5 g, IntraVENous, PRN, Starting on Sat09/05/21 at 1651, Until Discontinued, Low blood sugar, Blood glucose less than 70 mg/dL and patient NOT ALERT or NPO., If patient does not respond within 5 minutes, repeat dose x1. Start D5W at 100 mL/hour until ordering provider can be reached. Repeat blood glucose in 15 minutes. If blood glucose is less than 70 mg/dL, repeat treatment and recheck blood glucose in 15 minutes x2. If using Glucostabilizer, dose as instructed per system. dextrose bolus (hypoglycemia) 10% 125 mL(Linked Group 1) 125 mL, IntraVENous, at 937.5 mL/hr, Administer over 8 Minutes, PRN, Other, Hypoglycemia, Starting on Sat09/05/21 at 1352, If patient NPO, unconscious or unable to swallow AND If Blood Glucose between 40 and 69 mg/dL: Give 125 mL (12.5 g) D10% IV over 8 minutes. If Blood Glucose is less than 40 mg/dL: Give 250 mL (25 g) D10% IV over 16 minutes. Repeat Blood Glucose in 15 minutes. If blood glucose is less than 70 mg/dL, repeat treatment and recheck blood glucose in 15 minutes x 2 and notify provider. When Dextrose 10% is given for hypoglycemia start D5W at 100 mL/hour until Provider can be reached. dextrose bolus (hypoglycemia) 10% 250 mL(Linked Group 1) 250 mL, IntraVENous, at 937.5 mL/hr, Administer over 16 Minutes, PRN, Other, Hypoglycemia, Starting on Sat09/05/21 at 1352, If patient NPO, unconscious or unable to swallow AND If Blood Glucose between 40 and 69 mg/dL: Give 125 mL (12.5 g) D10% IV over 8 minutes. If Blood Glucose is less than 40 mg/dL: Give 250 mL (25 g) D10% IV over 16 minutes. Repeat Blood Glucose in 15 minutes. If blood glucose is less than 70 mg/dL, repeat treatment and recheck blood glucose in 15 minutes x 2 and notify provider. When Dextrose 10% is given for hypoglycemia start D5W at 100 mL/hour until Provider can be reached. fentaNYL (SUBLIMAZE) injection 25 mcg (COMPLETED) 25 mcg, IntraVENous, EVERY 5 MIN PRN, 2 doses, Starting on Sat09/05/21 at 1019, Until Discontinued, Pain Moderate (4-6), For Phase I. If Phase II oral narcotics have been administered in the last 60 minutes, do not administer IV narcotics unless specifically approved by provider., PACU only 1135 (Given - Provider: Pamella Sinhg RN)1140 (Given - Provider: Pamella Singh RN) gentamicin (GARAMYCIN) injection (CANCELED) PRN, Starting on Sat09/05/21 at 0945, Until Sat09/05/21 at 1318, Intra-op 0945 (Given - Provider: Zenia Molina MD) glucagon (rDNA) injection 1 mg 1 mg, IntraMUSCular, PRN, Starting on Sat09/05/21 at 1651, Until Discontinued, Low blood sugar, Blood glucose less than 70 mg/dL and patient NOT ALERT or NPO and does not have IV access., After administration, attempt intravenous access and start D5W at 100 mL/hr. Repeat blood glucose in 15 minutes x2 and notify provider. glucose (GLUTOSE) 40 % oral gel 15 g 15 g, Oral, PRN, Starting on Sat09/05/21 at 1651, Until Discontinued, Low blood sugar, If blood glucose less than 50 mg/dL and patient ALERT and TOLERATING PO, give 2 tubes glucose gel. If blood glucose less than 70 mg/dL and patient ALERT and TOLERATING PO, give 1 tube glucose gel. Repeat blood glucose in 15 minutes. If blood glucose is less than 70 mg/dL, repeat treatment and recheck blood glucose in 15 minutes x2 and notify provider. morphine (PF) injection 2 mg(Linked Group 2) 2 mg, IntraVENous, EVERY 2 HOURS PRN, Starting on Sat09/05/21 at 1340, Until Discontinued, Pain Moderate (4-6), If oral and IV narcotics ordered, use oral first and only use IV if oral is ineffective or cannot take oral. Do Not give oral and IV within 1 hour of each other unless specifically ordered., Post-op 1408 (Given - Provider: Luz Marina Kerr RN)162 (See Alternative - Provider: Luz Marina Kerr RN)1943 (See Alternative - Provider: Colin Younger RN) 134 (See Alternative - Provider: Colin Younger RN) morphine injection 4 mg(Linked Group 2) 4 mg, IntraVENous, EVERY 2 HOURS PRN, Starting on Sat09/05/21 at 1340, Until Discontinued, Pain Severe (7-10), If oral and IV narcotics ordered, use oral first and only use IV if oral is ineffective or cannot take oral. Do Not give oral and IV within 1 hour of each other unless specifically ordered., Post-op 1408 (See Alternative - Provider: Luz Marina Kerr RN)162 (Given - Provider: Luz Marina Kerr RN)1943 (Given - Provider: Colin Younger RN) 134 (Given - Provider: Colin Younger RN) ondansetron (ZOFRAN) injection 4 mg(Linked Group 3) 4 mg, IntraVENous, EVERY 6 HOURS PRN, Starting on Sat09/05/21 at 1340, Until Discontinued, Nausea, Vomiting, Administer if oral route cannot be used., Post-op ondansetron (ZOFRAN-ODT) disintegrating tablet 4 mg(Linked Group 3) 4 mg, Oral, EVERY 8 HOURS PRN, Starting on Sat09/05/21 at 1340, Until Discontinued, Nausea, Vomiting, Post-op oxyCODONE (ROXICODONE) immediate release tablet 5 mg 5 mg, Oral, EVERY 4 HOURS PRN, Starting on Sat09/05/21 at 1340, Until Discontinued, Pain Moderate (4-6), Pain Severe (7-10), Post-op 0651 (Given - Provid er: Claudia Dasilva, RN)1145 (Given - Provider: Claudia Dasilva, RN) sodium chloride flush 0.9 % injection 10 mL 10 mL, IntraVENous, PRN, Starting on Sat09/05/21 at 1340, Until Discontinued, Line Care, After every IV line use, Post-op Linked Groups Order Group 1: dextrose bolus (hypoglycemia) 10% 125 mLJump to med 125 mL, IntraVENous, at 937.5 mL/hr, Administer over 8 Minutes, PRN, Other, Hypoglycemia, Starting on Sat09/05/21 at 1352
If patient NPO, unconscious or unable to swallow AND If Blood Glucose between 40 and 69 mg/dL: Give 125 mL (12.5 g) D10% IV over 8 minutes. If Blood Glucose is less than 40 mg/dL: Give 250 mL (25 g) D10% IV over 16 minutes. Repeat Blood Glucose in 15 minutes. If blood glucose is less than 70 mg/dL, repeat treatment and recheck blood glucose in 15 minutes x 2 and notify provider. When Dextrose 10% is given for hypoglycemia start D5W at 100 mL/hour until Provider can be reached.
Or dextrose bolus (hypoglycemia) 10% 250 mLJump to med 250 mL, IntraVENous, at 937.5 mL/hr, Administer over 16 Minutes, PRN, Other, Hypoglycemia, Starting on Sat09/05/21 at 1352
If patient NPO, unconscious or unable to swallow AND If Blood Glucose between 40 and 69 mg/dL: Give 125 mL (12.5 g) D10% IV over 8 minutes. If Blood Glucose is less than 40 mg/dL: Give 250 mL (25 g) D10% IV over 16 minutes. Repeat Blood Glucose in 15 minutes. If blood glucose is less than 70 mg/dL, repeat treatment and recheck blood glucose in 15 minutes x 2 and notify provider. When Dextrose 10% is given for hypoglycemia start D5W at 100 mL/hour until Provider can be reached.
Group 2: morphine (PF) injection 2 mgJump to med 2 mg, IntraVENous, EVERY 2 HOURS PRN, Starting on Sat09/05/21 at 1340, Until Discontinued, Pain Moderate (4-6)
If oral and IV narcotics ordered, use oral first and only use IV if oral is ineffective or cannot take oral. Do Not give oral and IV within 1 hour of each other unless specifically ordered.
Post-op Or morphine injection 4 mgJump to med 4 mg, IntraVENous, EVERY 2 HOURS PRN, Starting on Sat09/05/21 at 1340, Until Discontinued, Pain Severe (7-10)
If oral and IV narcotics ordered, use oral first and only use IV if oral is ineffective or cannot take oral. Do Not give oral and IV within 1 hour of each other unless specifically ordered.
Post-op Group 3: ondansetron (ZOFRAN-ODT) disintegrating tablet 4 mgJump to med 4 mg, Oral, EVERY 8 HOURS PRN, Starting on Sat09/05/21 at 1340, Until Discontinued, Nausea, Vomiting, Post-op Or ondansetron (ZOFRAN) injection 4 mgJump to med 4 mg, IntraVENous, EVERY 6 HOURS PRN, Starting on Sat09/05/21 at 1340, Until Discontinued, Nausea, Vomiting
Administer if oral route cannot be used.
Post-op Scheduled Medication Order 12/04/2021 12/05/2021 12/06/2021 HYDROcodone-acetaminophen (NORCO) 5-325 MG per tablet 2 tablet (COMPLETED) 2 tablet, Oral, ONCE, 1 dose, On Sat12/06/21 at 1400, Maximum dose of acetaminophen is 4000 mg from all sources in 24 hours. 1355 (Given - Provid er: Clyde Richard RN) ketorolac (TORADOL) injection 15 mg (COMPLETED) Ketorolac is contraindicated in patients with advanced renal impairment and in patients at risk of renal failure due to volume depletion. For 65 years of age and older OR weight less than 50 kg, use 15 mg IV every 6 hours; MAX dose: 60 mg/day. Dose greater than 30 mg must be administered via intramuscular route. Do not administer for more than 5 days., 15 mg, IntraVENous, ONCE, 1 dose, On Sat12/06/21 at 1545, Do not administer for more than 5 days. 1538 (Given - Provid er: Clyde Richard RN) Care Teams (unrecognized sec tion and content) Voltage Inspector Relationship Specialty Start Date End Date Mike Yuan MD PCP - General Family Medicine 12/25/18 Voltage Inspector Relationship Specialty Start Date End Date Mike Yuan MD PCP - General Family Medicine 12/25/18 Voltage Inspector Relationship Specialty Start Date End Date Mike Yuan MD PCP - General Family Medicine 12/25/18 Voltage Inspector Relationship Specialty Start Date End Date Mike Yuan MD PCP - General Family Medicine 12/25/18 Team Status: Active Member Role Status Dates Berta Hernandez APRN CLEANING MACHINE OPERATOR-C Primary Care Provider Ed wong Team Status: Inactive Member Role Status Dates Berta Hernandez APRN CLEANING MACHINE OPERATOR-C Primary Care Provider, Attmarvin boggsing Provider Active Mike Yuan MD Other Provider Active Goals (unrecognized section and content) Goals may be documented in a n alternate section FOR RECORDS PERTAINING TO PATIENTS WHO ARE OR HAVE BEEN ENROLLED IN A CHEMICAL DEPENDENCY/SUBSTANCEABUSE PROGRAM, SOME INFORMATION MAY BE OMITTED. This clinical summary was aggregated from multiple sources. Caution should be exercised in using it in the provision of clinical care. This summary normalizes information from multiple sources, and as a consequence, information in this document may materially change the coding, format and clinical context of patient data. In addition, data may be omitted in some cases. CLINICAL DECISIONS SHOULD BE BASED ON THE PRIMARY CLINICAL RECORDS. [facility]. provides no warranty or guarantee of the accuracy or completeness of information in this document.
--- NOTE | 2023-06-13 10:53 | PM.CN ---
Consult Note: HPI Data of Consult Patient: known to practice within the last 3 years Requesting Physician: Luz Marina Viera NP Primary Care Provider: Niru Flynn MD Consult Narrative Reason for consult: f/u Narrative: Billy landers pleasant 67 year old male presents to office for evaluation of chronic low back, bilateral legs, bilateral shoulders. Currently on amitriptyline 25mg qd, gabapentin 300mg TID, [facility] We prescribe norco 5-325mg BID with mild relief. Today rating pain 7-8/10, recently underwent bilateral L4-5 TFESI and bilateral L5-S1 TFESI with 0% improvement. Patient previously failed to benefit from bilateral L2,3,4 facet medial branch blocks. cc:: CC: Luz Marina Viera NP Review of Systems ROS Status of ROS 10 or more systems reviewed and unremarkable except as noted in history and below Musculoskeletal Reports: back pain, extremity pain and joint pain Meds Home Medications and Allergies Home Medications Medication Instructions Recorded Confirmed Type adalimumab 40 mg/0.4 mL 40 mg subcut QWEEK 11/02/22 06/03/23 History subcutaneous syringe kit (Humira(CF)) amitriptyline 25 mg tablet 25 mg PO DAILY 11/02/22 06/03/23 History ascorbic acid (vitamin C) 500 mg 500 mg PO DAILY 11/02/22 06/03/23 History tablet baclofen 10 mg tablet 10 mg PO DAILY 11/02/22 06/03/23 History diclofenac sodium 75 mg 75 mg PO BID 11/02/22 06/03/23 History tablet,delayed release duloxetine 60 mg capsule,delayed 60 mg PO DAILY 11/02/22 06/03/23 History release ferrous sulfate 325 mg (65 mg 325 mg PO BID 11/02/22 06/03/23 History iron) tablet,delayed release flecainide 100 mg tablet 100 mg PO Q12H 11/02/22 06/03/23 History furosemide 40 mg tablet 40 mg PO DAILY 11/02/22 06/03/23 History lidocaine 5 % topical patch 1 patch topical DAILY 11/02/22 06/03/23 History lisinopril 10 mg tablet 10 mg PO DAILY 11/02/22 06/03/23 History melatonin 5 mg capsule mg 11/02/22 History metoprolol tartrate 50 mg tablet 50 mg PO DAILY 11/02/22 06/03/23 History multivitamin (Multiple Vitamins 1 tab PO DAILY 11/02/22 06/03/23 History tablet) omeprazole 40 mg capsule,delayed 40 mg PO DAILY 11/02/22 06/03/23 History release pregabalin 100 mg capsule (Lyrica) 100 mg PO BID 11/02/22 06/03/23 History simvastatin 40 mg tablet 40 mg PO DAILY 11/02/22 06/03/23 History sulfasalazine 500 mg tablet 1 g PO DAILY 11/02/22 06/03/23 History thiamine HCl (vitamin B1) 100 mg 100 mg PO DAILY 11/02/22 06/03/23 History tablet hydrocodone 5 mg-acetaminophen 325 1 tab PO BID PRN pain #60 tabs 03/07/23 06/03/23 Rx mg tablet alendronate 70 mg tablet 70 mg PO QWEEK 06/13/23 06/13/23 History atorvastatin 20 mg tablet 20 mg PO DAILY 06/13/23 06/13/23 History folic acid 1 mg tablet 1 mg PO DAILY 06/13/23 06/13/23 History gabapentin 300 mg capsule 300 mg PO Q8H 06/13/23 06/13/23 History lidocaine 5 % topical patch 1 patch topical DAILY 06/13/23 06/13/23 History mirtazapine 15 mg tablet 15 mg PO DAILY 06/13/23 06/13/23 History prazosin 1 mg capsule 3 mg PO DAILY 06/13/23 06/13/23 History Allergies Allergy/AdvReac Type Severity Reaction Status Date / Time No Known Drug Allergies Allergy Verified 06/03/23 10:24 Exam Narrative Exam Narrative: chronic whole body OA pain Constitutional Documenting provider has reviewed patient's vital signs: yes Common normals: no apparent distress, oriented x3, healthy appearing, alert and well nourished General appearance: cooperative [facility] Common normals: normocephalic, hearing grossly normal bilaterally and moist oral mucous membranes Head and scalp: normocephalic Eye Common normals: PERRL Pupil: PERRL Neck & C-Spine Common normals: full ROM General: normal visual inspection Chest Common normals: inspection of chest normal Respiratory Common normals: normal respiratory effort, no retractions and no use of accessory muscles Back & Pelvis Lumbar spine/lower back: ROM limited, pain with ROM, straight leg raise positive right and straight leg raise positive left Sacroiliac joints: SI joint(s) abnormal SI joint details: tender to palpation and pain elicited by compression of iliac crest maneuver Other: pain with flexion, extension, rotation. Worsened with standing. No radiculopathy or altered sensation on exam where previously there was radiculopathy and altered sensation to BLE. Extremity Common normals: normal to inspection Neuro Common normals: oriented x3, CN's II-XII intact bilaterally, moves all extremities, no focal motor deficits, no sensory deficits noted and deep tendon reflexes 2+ bilaterally Sensorium/orientation: alert Gait (neuro): antalgic and assistive device used cane Motor exam: no movement abnormalities noted and strength abnormal (4/ BUE BLE) Psych Common normals: mental status grossly normal, thought process normal, cooperative, affect normal, speech normal and activity/motor behavior normal Speech: normal speech Thought process: normal thought process Assessment and Plan Assessment and Plan (1) Lumbar spondylosis: (2) Lumbar radiculopathy: (3) Osteoarthritis: (4) Chronic, continuous use of opioids: Assessment and Plan: I feel these medications are improving the patient's quality of life and allow them to tolerate activities of daily living as well as participate in recreational activity.? The patient does not report intolerable side effects. The patient is NOT opioid naive and non-pharmacologic and non-opioid treatment has failed to significantly relieve the patient's pain and improve functionality. The patient has a diagnosis that is related to a somatic or visceral pain etiology. ? ?? I reviewed with the patient the potential risks and side effects with the use of? opioid medications including but not limited to respiratory depression,? sedation, and even . I verified the patient has access to naloxone should? these effects occur. I advised the patient to avoid the use of any other? sedation substances including alcohol, THC, and benzodiazepines while? taking opioid medications due to the risk of compounding side effects and? detrimental outcomes. I reviewed the PUBLIC RELATIONS DIRECTOR, pain treatment agreement, urine? drug screen, and opioid start talking forms. The patient was advised to let? their family know they had Naloxone in case they would need to administer? the medication.? ?? A drug screen was completed within the last year, and no aberrancies were noted regarding their use of controlled substances. The patient understands they are subject to the terms and conditions of the pain contract that they have signed. ? ?? I have checked an [place] report on this patient today and there are no aberrancies noted in the prescribing history.? Plan discussed previous UTOX which showed gabapentin, patient reports he is being [facility] and other medications. Patient is unsure of what medications and dosing, [place] does not show anything. Repeat UTOX today, patient instructed to call with updated medication list including name of medication, dose, frequency, and ordering provider. Patient was able to find [facility] which shows gabap[facility] 300mg TID and lidocaine 5% patches, in addition to lyrica 100mg BID. MRI of lumbar spine without contrast to evaluate chronic low back pain unresponsive to conservative measures, PT/HEP, and injection therapy. f/u after MRI
== END 2023-06-13 10:18 | disposition home or self-care (01) ==
LOC: PM 10:17
PROVIDERS: PCP Family Medicine; Visit Provider Nurse Practitioner
DX: M47.816 Spondylosis without myelopathy or radiculopathy, lumbar region (principal); M54.16 Radiculopathy, lumbar region; M19.90 Unspecified osteoarthritis, unspecified site; Z79.891 Long term (current) use of opiate analgesic
CPT/HCPCS: G0463

== ENCOUNTER 2023-07-25 14:54 | Outpatient (OUT) | payer MEDICARE, OTHER, SELFPAY ==
--- NOTE | 2023-07-25 15:00 | CA_ITS ---
Patient Name: DEONDRE MELTON MR#: [id number] : 1955 Exam Date: 07/25/2023 Ordering Doctor: RAVEN PRADO CNP ECHOCARDIOGRAM REPORTs PROCEDURE: CA ECHO DOPPLER COMPLETE INDICATIONS: Hypertensive heart disease COMPARISON: None. DESCRIPTION: COMPLETE ECHOCARDIOGRAM Real-time transthoracic echocardiography with 2D, M-mode, spectral and color flow Doppler performed. QUALITY: Technical quality was good. LEFT VENTRICLE: Normal chamber size. Normal left ventricular wall thickness. LV EF: Global left ventricular systolic function is normal. Calculated left ventricular ejection fraction is 64% DIASTOLIC: Normal diastolic function. ATRIAL SEPTUM: Inadequately seen. LEFT ATRIUM: Mild dilatation. RIGHT ATRIUM: Mild dilatation. RIGHT VENTRICLE: Normal chamber size. Normal right ventricular systolic function. TRICUSPID VALVE: Normal mobility and thickness. No stenosis with trivial regurgitation. No evidence of pulmonary hypertension. RVSP 22mmHg MITRAL VALVE: Normal mobility and thickness. No evidence of mitral valve stenosis. There is no mitral annular calcification. Trivial mitral regurgitation. AORTIC VALVE: Normal trileaflet appearance. No visible sclerosis. Normal leaflet mobility. No evidence of aortic valve stenosis. Trivial aortic regurgitation. AORTIC ROOT: Normal diameter and appearance. PULMONIC VALVE: Normal thickness and mobility. No stenosis. Trivial regurgitation. PERICARDIUM: No evidence of pericardial effusion. IVC: Collapses with inspirations. Normal size. CONCLUSION: 1. Global left ventricular systolic function is normal; visually estimated ejection fraction is 60 to 65% 2. Normal right ventricular size and systolic function 3. Normal diastolic function 4. Biatrial enlargement 5. No significant valvular abnormalities Adult Echocardiography Procedure Report Left Ventricle LVEDD (3.7 - 5.6 cm): 4.13 cm LVESD (2.2 - 4.0 cm): 2.87 cm LVIVS thickness (0.6 - 1.2 cm): 1.01 cm LVPW thickness (0.5 - 1.0 cm): 0.93 cm e': 0.12 m/s E - e': 6.27 LVOT Max Gradient: 4.23 mm[Hg] LVOT Area (cm2): 1.03 m/s Peak Velocity (LVOT): 1.03 m/s Mean Velocity (LVOT): 0.69 m/s LVOT Diameter 2.25 cm Left Ventricular Ejection Fraction: 64.07 % Left Atrium LA Volume Index (2D A2C): 43.13 ml/m2 Left Atrium Systolic Dimension: 3.99 cm Mitral Valve MV E to A Ratio: 0.98 Mitral Valve A-Wave Peak Velocity: 0.76 m/s Mitral Valve E-Wave Peak Velocity: 0.74 m/s Right Ventricle RV Internal Diastolic Dimension: 3.03 cm Aorta AO Root Diam: 3.36 cm Ascending Ao Diam: 2.88 cm Aortic Valve AoV Area (Peak Will): 3.29 cm2, 3.29 cm2 AoV Area (VTI): 3.08 cm2, 3.08 cm2 Peak Velocity(Antegrade Flow): 1.24 m/s Peak Gradient(Antegrade Flow): 6.18 mm[Hg] Mean Velocity(Antegrade Flow): 0.84 m/s Mean Gradient(Antegrade Flow): 3.26 mm[Hg] Velocity Time Integral: 28.05 cm Tricuspid Valve Peak Velocity (Regurgitant Flow): 2.16 m/s, 1.84 m/s, 2.16 m/s Pulmonic Valve Mean Gradient: 2.48 mm[Hg], 3.25 mm[Hg] Mean Velocity: 0.73 m/s, 0.84 m/s Peak Velocity: 1.25 m/s Peak Gradient: 5.49 mm[Hg], 7.03 mm[Hg] Right Atrium Right Atrium Systolic Pressure: 33.70 ml, 33.70 ml Dictated by: Cydney Redmond M.D. on 07/26/2023 at 11:20 Approved by: Cydney Redmond M.D. on 07/26/2023 at 11:29
== END 2023-07-25 14:55 | disposition home or self-care (01) ==
LOC: CARD 14:55
PROVIDERS: PCP Family Medicine; Visit Provider Nurse Practitioner Family
DX: I51.7 Cardiomegaly (principal)
CPT/HCPCS: 93306

== ENCOUNTER 2023-10-19 12:40 | Inpatient (IN) | payer MEDICARE, OTHER, SELFPAY ==
[2023-10-19] VITALS (38 sets, daily range): BP systolic 105–135; BP diastolic 50–75; PULSE 50–107; TEMP 36.8–37.3; O2SAT 77–96; BMI 28.1
--- OUTSIDE RECORDS SUMMARY | 2023-10-19 12:49 | XMS_ITS ---
Patient Summarization (C-CDA 2.1 CCD) Created on: October 19, 2023 DEONDRE LR : 1955 Sex: Male Author Organization Sample organization Care Team Providers Care Entry Level Accountant Name Role Phone Mike Yuan MD Primary Care Provider MIKE YUAN Primary Care Unavailable GUY, HERNANDEZ H. Admitting Unavailable GUY, HERNANDEZ H. Attending Unavailable BELINDA MONROE Referring Unavailable MIKE YUAN Primary Care Unavailable MIKE YUAN Primary Care Unavailable GUY, HERNANDEZ H. Attending Unavailable GUY, HERNANDEZ H. Referring Unavailable Mike Yuan MD Primary Care Provider [phone] Mike Yuan MD Primary Care Provider GABRIELLA, ZENIA Referring Unavailable MIKE YUAN Primary Care Unavailable MIKE YUAN Primary Care Unavailable SKYE GARCIA Attending Unavailable GABRIELLA, ZENIA Admitting Unavailable GABRIELLA, ZENIA Attending Unavailable MIKE YUAN Primary Care Unavailable GABRIELLA, ZENIA Admitting Unavailable GABRIELLA, ZENIA Attending Unavailable MIKE YUAN Primary Care Unavailable DEBBY JENKINS Consulting Unavailable GABRIELLA, ZENIA Referring Unavailable MIKE YUAN Primary Care Unavailable LAKSHMIPATHY ., BALDOATH Attending Pia vailable LAKSHMIPATHY ., BALDOATH Admitting Pia vailable DR JENNIFER RAGSDALE Primary Care Unavailable DR MIKE YUAN Primary Care Unavailable FLORES ., DR LOUISE Ewing Attending Unavailable TANNER ., DR LOUISE Ewing Admitting Unavailable TANNER ., DR LOUISE Ewing Consulting Unavailable AUTUMN RIOS Consulting Unavailable SONA .DEVAN Consulting Unavailable KWABENA, DR MIKE Wong Primary Care Unavailable TANNER ., DR LOUISE Ewing Attending Unavailable TANNER ., DR LOUISE Ewing Admitting Unavailable LAKSHMIPATHY ., NARELIAS Attending Pia vailable LAKSHMIPATHY ., NARJUAN JOSEATH Admitting Pia vailable DR JENNIFER RAGSDALE Primary Care Unavailable FLORES ., DR LOUISE Ewing Attending Unavailable DR MIKE YUAN Primary Care Unavailable TANNER ., DR LOUISE [...] Unavailable BALL, DR RODRIGUEZ Primary Care Unavailable ZIEBER, DR REILLY Mattson Consulting Unavailable LAKSHMIPATHY ., NARENDRANATH Admitting Pia vailable LAKSHMIPATHY ., NARENDALYSSAATH Attending Pia vailable ZIEBER, DR REILLY Mattson Consulting Unavailable YUAN, DR MIKE Wong Primary Care Unavailable LAKSHMIPATHY ., STEPHANIE Consulting Pia vailable FAWWAD, APARICIO H Admitting Unavailable YUAN, DR MIKE Wong Primary Care Unavailable FAWFANNY, APARICIO H Attending Unavailable RIO [place], DR RAMONA Carmichael Consulting Unavailable JOSE [facility] ., MELINDA QUINTANILLA Consulting [facility] ALICIA, APARICIO H Consulting Unavailable SISTER, ADAM Consulting Unavailable [facility], PANDA Consulting Unavailable MAGALLANES ., DEVAN Consulting [...] ., DR LOUISE Ewing Admitting Unavailable MAGALLANES ., DEVAN Consulting Unavailable YUAN, DR MIKE Wong Primary Care Unavailable TANNER ., DR LOUISE Ewing Admitting Unavailable TANNER ., DR LOUISE Ewing Consulting Unavailable FLORES ., DR LOUISE Ewing Attending Unavailable BELINDA HOLLINGSWORTH Consulting Unavailable REILLY BEATTY Consulting Unavailable Mike Yuan Unavailable IRAIS Hernandez Primary Care Provider IRAIS Hernandez Attending Provider MD Mike Yuan Other Provider Berta Hernandez Attending Unavailable Berta Hernandez Primary Care Unavailable Berta Hernandez Admitting Unavailable Mike Yuan Consulting Unavailable Jc NIETO, Lesley Altamirano Attending Unavailable Jc NIETO, Lesley Altamirano Attending Unavailable RAVEN PRADO Attending Unavailable Encounters Encounter Date Encounter Type Care Provider Facility Start: 07-18-2023 End: 07-18-2023 ambulatory RAVEN [facility] Start: 06-25-2023 End: 06-25-2023 ambulatory Mike Yuan Other [employer] Other Start: 06-25-2023 Telephone encounter Mike Yuan [facility] Start: 06-03-2023 End: 06-04-2023 [facility]ulatory [facility] Start: 03-25-2023 End: 03-26-2023 ambulatory Lesley Greene MD Facility: [facility] Start: 02-04-2023 End: 02-04-2023 ambulatory Mike Yuan Other [employer] Other Start: 02-04-2023 Patient encounter procedure Mike Yuan [facility] Start: 12-12-2022 End: 12-12-2022 ambulatory Berta Hernandez Facility:[facility] Start: 12-12-2022 End: 12-12-2022 ambulatory IRAIS Hernandez Work Phone: [facility] Work Phone: Start: 12-12-2022 End: 12-12-2022 Patient encounter procedure IRAIS Hernandez Work Phone: [facility] [place] Work Phone: Start: 11-02-2022 End: 11-02-2022 ambulatory Mike Yuan Other [facility] [employer] Other Start: 11-02-2022 Office outpatient vi sit 25 minutes Mike Yuan [facility] Start: 10-17-2022 End: 10-19-2022 Evaluation and management of inpatient SHAIKH Sade VARGAS Facility:[facility] Start: 10-09-2022 ambulatory NARENDRANATH LAKSHMIPATHY . Facility:[facility] Start: 09-24-2022 End: 09-25-2022 ambulatory NARENDRANATH LAKSHMIPATHY . Facility:[facility] Start: 09-18-2022 End: 09-19-2022 ambulatory NARENDRANATH LAKSHMIPATHY . Facility:[facility] Start: 07-31-2022 ambulatory NARENDRANATH LAKSHMIPATHY . Facility:[facility] Start: 07-09-2022 Encounter for other preprocedural examination DR CYDNEY REDMOND [facility] Start: 07-05-2022 End: 07-06-[address] CYDNEY REDMOND Facility:[facility] Start: 07-05-2022 End: 07-06-2022 Encounter for other preprocedural examination DR CYDNEY REDMOND Facility:[facility] Start: 06-26-2022 Encounter for preprocedural cardiovascular examination DR DOCTOR DE LA CRUZ [facility] Start: 06-26-2022 Encounter for preprocedural laboratory examination DR DOCTOR DE LA CRUZ [facility] Start: 06-22-2022 End: 06-23-[address] DOCTOR [...] 12-06-2021 End: 12-06-2021 Emergency department patient visit MIKE [facility] Start: 12-06-2021 End: 12-06-2021 Emergency department patient visit Skye Garcia MD Work Phone: [facility] ED Comment on above: Closed fracture of s haft of left humerus, unspecified fracture morphology, initial encounter (Primary Dx) Start: 11-23-2021 End: 11-24-[address] MIKE YUAN Facility:[facility] Start: 11-07-2021 End: 11-07-[address] MIKE YUAN Facility:[facility] Start: 09-05-2021 End: 09-06-2021 ambulatory [facility] Start: 09-05-2021 End: 09-06-2021 Subsequent hospital visit by physician Zenia Molina MD Work Phone: [facility] Comment on above: Post-op pain (Primar y Dx) Start: 08-22-2021 End: [facility] Start: 08-22-2021 End: 08-22-2021 Subsequent hospital visit by physician Zenia Molina MD Work Phone: [facility] Start: 08-02-2021 End: 08-07-2021 ambulatory [facility] Start: 08-02-2021 End: 08-04-2021 Subsequent hospital visit by physician Janae Ko 2 [facility] Comment on above: Arrived Start: 12-06-2020 End: 12-08-2020 Evaluation and management of inpatient MIKE YUAN [facility] Start: 12-06-2020 End: 12-09-2020 ambulatory MIKE YUAN [facility] Start: 12-06-2020 End: 12-08-2020 Evaluation and management of inpatient Hernandez Tovar MD Work Phone: [facility] Comment on above: Post-op pain (Primar y Dx); Muscle spasm Start: 12-06-2020 End: 12-08-2020 Subsequent hospital visit by physician Hernandez Tovar MD Work Phone: [facility] Comment on above: Pain Start: 11-25-2020 End: 11-28-2020 ambulatory BELINDA MONROE [facility] Start: 11-25-2020 End: 11-27-2020 Preprocedural examination done Jewett 8 [facility] Start: 11-25-2020 End: 11-27-2020 Subsequent hospital visit by physician Jewett Xray Room 8 [facility] Comment on above: Radiculopathy, unspe cified spinal region; Pseudoarthrosis of lumbar spine; Pre-op examination Start: 06-04-2019 End: 06-08-2019 Evaluation and management of inpatient Hernandez Tovar MD Work Phone: [facility] Comment on above: Post-op pain (Primar y Dx); Lumbar degenerative disc disease Medical Equipment Procedure Code Equipment Code Equipment Original Text Equipment Identifier Dates Graft Canc Chip [id number] 15cc - [id number] Start: 06-04-2019 Apollo-Cellular Bon e Matrix 5cc - [id number] Start: 06-04-2019 Screw Polyaxial Reline-O 2s 6.5x55mm [id number] Start: 06-04-2019 Screw Lk Reline Opn Tulip 5.5mm [id number] Start: 06-04-2019 Impl Cage Spine Mas 28 Mm Posterior [id number] Start: 06-04-2019 Impl Spine Jose Armando R volodymyr-O 5.5x75mm [id number] Start: 06-04-2019 Sys Fix Reline 0 x Conn 40 50mm 5.5lp Adj [id number] Start: 06-04-2019 Screw O Reline 99x12mu [id number] St art: 12-06-2020 Kit Bne Grft M R hbmp-2 4.2mg Inj 5ml Contain Ndl 20ga [id number] Start: 12-06-2020 Cage Spnl Lordtc 74w12c55 Mm Crv Coalesce [id number] Start: 12-06-2020 Graft Bne Sub 30 cc 1.7-10mm Canc Chip Morselized Frz Dry - [id number] Start: 12-06-2020 Screw Spnl L55mm Dia6.5mm Post Thoracolumbosacral Polyax 2s [id number] Start: 12-06-2020 Screw Spnl Dia5. 5mm Opn Tulip Sg Reline [id number] Start: 12-06-2020 Jose Armando Spnl Lordtc 5.5x90 Mm Ti Reline-O [id number] Start: 12-06-2020 Connector Spnl C rss Lo Prof Adj Reline-O 5.5 X 45-65 Mm [id number] Start: 12-06-2020 Graft Bne Sub 30 cc 1.7-10mm Canc Chip Morselized Frz Dry - [id number] Start: 12-06-2020 Baseplate Duc D ia25mm +3mm Lat Offset Augmented Aequalis - [id number] Start: 09-05-2021 Screw Bone L35mm Dia6.5mm Ti St Full Thrd Ctrl For Duc - [id number] Start: 09-05-2021 Screw Bone L30mm Dia5mm Ti St Full Thrd Periph For Duc - [id number] Start: 09-05-2021 Screw Bne Periph 5x38 Mm Shldr Reversed Ns Aequalis Perform - [id number] Start: 09-05-2021 Sphere Duc Dia3 9mm +3mm Lat Offset Reversed Aequalis - [id number] Start: 09-05-2021 Insert Shldr C D ia39mm Thk+6mm 7.5deg Reversed Aequalis - [id number] Start: 09-05-2021 Tray Hum Thk+0mm 0mm Offset Cntr Reversed Aequalis Ascend - [id number]_[facility] Start: 09-05-2021 Insert Shldr C D ia39mm Thk+6mm 7.5deg Reversed Aequalis - [id number] Start: 09-05-2021 Stem Hum L74mm D ia3b 132.5deg Std Shldr Ptc Aequalis Ascend - [id number]_[facility] Start: 09-05-2021 Immunizations Immunization Date Immunization Notes Care Provider Fa cility 11-14-2020 COVID-19, Pfizer, PF , 30mcg/0.3mL Hernandez Tovar MD Work Phone: [facility] Work Phone: 10-27-2020 COVID-19, Pfizer, PF , 30mcg/0.3mL Hernandez Tovar MD Work Phone: [facility] Medications Current Medications Medication Drug Class(es) Dates [...] Start: 12-06-2020 take 1 tablet by evangelist every four hours as needed for pain [...] 4 HOURS PRN, Pain Moderate (4-6), Starting Sat06/04/19 at 1536 Maximum dose of acetaminophen is [...] mg docusate sodium 50 mg / sennosides, skilled nursing 8.6 mg oral tablet (3 sources) Start: 12-06-2020 End: 12-18-2020 take 1 tablet by mouth twice daily sennosides-docusate sodium (SENOKOT-S) 8.6-50 MG tablet Take 1 tablet by mouth 2 times daily for 10 days 20 tablet 0 12/08/2020 12/18/2020 Active DULoxetine 60 mg delayed release oral capsule (14 sources) Serotonin and Norepinephrine Reuptake Inhibitor Start: [...] or glucagon. Start: 12-06-2020 15 g, Oral, IL N, Low blood sugar, Starting on Sat12/06/20 [...] TIMES DAILY WITH MEALS, First dose on Shalonda 06/04/19 at 1700 Medium Dose Corrective Algorithm Glucose: [...] chloride 4.5 mg/ml injection (1 source) Start: 100 mL/hr, Intravenous, at 100 mL/hr, CONTINUOUS, Starting on Sat12/06/20 at 1530, Post-op prednisoLONE 3 mg/ml oral solution (9 sources) Corticosteroid Start: take 5 mg by mouth once daily [...] mg amitriptyline hydrochloride 25 mg oral tablet (14 sources) Tricyclic Antidepressant Start: 09-05-2021 take 50 mg by mouth once daily 50 mg, Oral, DAILY, First dose on Sat09/05/21 at 1500, Until Discontinued Start: 06-04-2019 take 50 mg by mouth once daily 50 mg, Oral, DAILY, First dose on Sat06/04/19 at 1600 Start: 05-07-2019 take 1 tablet by evangelist once daily amitriptyline (ELAVIL) 50 MG tablet [...] at 2100 take 1 tablet by evangelist twice daily flecainide (TAMBOCOR) 100 MG tablet [...] 10 Units, Subcutaneous, NIGHTLY, First dose on Shalonda 06/04/19 at 2100 insulin glargine (LANTUS) 100 UNIT/ML [...] Omeprazole (PRILOSEC). sertraline 100 mg oral tablet (15 sources) Serotonin Reuptake Inhibitor Start: 05-05-2019 take [...] dose on Sat09/06/21 at 0900, Until Discontinued Payers Date Payer Category Payer Self-pay 2022 [employer] ( and others) 2022 Medicare 2018 Medicare MEDICARE MEDICAR E PART A AND B xxxxxxxxxxx 2018-Present [phone] [place] [address] xxxxxxxxxxx [id number] 2017 [employer] ( and others) [facility] xxxxxxxxx 2017-Present xxxxxxxxx [id number] .[id number] 1959 [employer] ( and others) [id number] 1.2.840.022986.1.13.239.2 .7.3.961088.315 1959 Medicare [id number] 1.2.840.707342.1.13.239.2 .7.3.295581.315 1959 Medicare [id number] 1955 Unknown [id number] 2.16.840.1.937762.3.579.2 .182 1955 Unknown [id number] 2.16.840.1.709076.3.579.2 .182 1955 Unknown [id number] 2.16.840.1.863435.3.579.2 .182 1955 Unknown [id number] 2.16.840.1.738265.3.579.2 .173 1955 Unknown [id number] 2.16.840.1.634067.3.579.2 .173 1955 Unknown [id number] 2.16.840.1.190596.3.579.2 .173 1955 Unknown [id number] 2.16.840.1.969391.3.579.2 .173 1955 Unknown [id number] 2.16.840.1.795543.3.579.2 .173 1955 Unknown [id number] 2.16.840.1.524208.3.579.2 .593 1955 Unknown [id number] 2.16.840.1.020990.3.579.2 .593 1955 Unknown [id number] 2.16.840.1.738412.3.579.2 .593 1955 Unknown [id number] 2.16.840.1.886129.3.579.2 .593 1955 Unknown [id number] 2.16.840.1.263333.3.579.2 .593 1955 Unknown [id number] 2.16.840.1.158802.3.579.2 .593 1955 Unknown [id number] 2.16.840.1.415127.3.579.2 .593 1955 Unknown [id number] 2.16.840.1.375075.3.579.2 .593 1955 Unknown [id number] 2.16.840.1.587770.3.579.2 .593 1955 Unknown [id number] 2.16.840.1.408995.3.579.2 .593 1955 Unknown [id number] 2.16.840.1.474335.3.579.2 .593 1955 Unknown [id number] 2.16.840.1.861041.3.579.2 .593 1955 Unknown [id number] 2.16.840.1.154026.3.579.2 .593 1955 Unknown [id number] 2.16.840.1.532812.3.579.2 .593 1955 Unknown [id number] 2.16.840.1.037009.3.579.2 .593 1955 Unknown [id number] 2.16.840.1.554130.3.579.2 .593 1955 Unknown [id number] 2.16.840.1.428684.3.579.2 .196 1955 Unknown [id number] 2.16.840.1.851036.3.579.2 .196 [employer] ( and others) [id number] 2.16.840.1.367446.19 Medicare Medicare [id number] Unknown [id number] 2.16.840.1.599320.3.579.2 .531 Plan of Treatment Date Care Activity Detail Author Start: 03-09-2024 Pneumococcal 65+ years Vaccine (2 of 2 - PPSV23) Pneumococcal 65+ years Vaccine (2 of 2 - PPSV23) [facility] Start: 03-09-2024 Pneumococcal 65+ years Vaccine (3 - PPSV23 or PCV20) Pneumococcal 65+ years Vaccine (3 - PPSV23 or PCV20) [facility] Start: 09-06-2022 Creatinine measurement Creatinine monitoring [facility] Start: 09-06-2022 Potassium monitoring Potassium monitoring [facility] Start: 08-02-2022 Creatinine measurement Creatinine monitoring [facility] Start: 08-02-2022 Hemoglobin A1c measurement A1C test (Diabetic or Prediabetic) [facility] Start: 08-02-2022 Potassium monitoring Potassium monitoring [facility] Start: 01-25-2022 Influenza vaccination Flu vaccine (#1) ALEYDA ERICKSON OANDA Start: 12-07-2021 Creatinine measurement Creatinine monitoring [employer] Phone: Start: 12-07-2021 Potassium monitoring Potassium monitoring [employer] Phone: Start: 11-25-2021 Creatinine measurement Creatinine monitoring [employer] Phone: Start: 11-25-2021 Depression Screen Depression Screen [facility] Start: 11-25-2021 Potassium monitoring Potassium monitoring [employer] Phone: Start: 09-05-2021 End: 09-05-2021 Admission to same day surgery center 09/05/2021 Surgery IP Unit Zenia Molina MD [address] [place] [address] SHOULDER TOTAL ARTHROPLASTY REVERSE [facility] Comment on above: SHOULDER TOTAL ARTHROPLASTY REVERSE Start: 09-05-2021 End: 09-05-2021 Arthroplasty glenohumeral joint total shoulder SHOULDER TOTAL ARTHROPLASTY REVERSE ROTATOR CUFF ARTHROPATHY, LEFT SHOULDER 09/05/2021 9:25 AM EDT [facility] Start: 09-05-2021 Subsequent hospital visit by physician 09/05/2021 Hospital Encounter IP Unit Zenia Molina MD [address] [place] [address] [facility] Start: 08-22-2021 End: 08-22-2021 Admission to same day surgery center 08/22/2021 Surgery IP Unit Zenia Molina MD [address] [place] [address] SHOULDER TOTAL ARTHROPLASTY REVERSE [facility] Comment on above: SHOULDER TOTAL ARTHROPLASTY REVERSE Start: 08-22-2021 End: 08-22-2021 Arthroplasty glenohumeral joint total shoulder SHOULDER TOTAL ARTHROPLASTY REVERSE ROTATOR CUFF REPAIR 08/22/2021 11:30 AM [facility] Start: 08-22-2021 Subsequent hospital visit by physician 08/22/2021 Hospital Encounter IP Unit Zenia Molina MD [address] [place] [address] [facility] Start: 04-16-2021 COVID-19 Vaccine (3 - Booster for Pfizer series) COVID-19 Vaccine (3 - Booster for Pfizer series) [facility] Start: 01-25-2021 Influenza vaccination Flu vaccine (#1) [facility] Work Phone: Start: 12-23-2020 End: 12-23-2020 Patient encounter procedure 12/23/2020 Office Visit Neurosurgery Hernandez Tovar MD [address] [id number] [phone] [facility] Start: 12-16-2020 End: 12-16-2020 Patient encounter procedure 12/16/2020 Office Visit Neurosurgery Hernandez Tovar MD [address] [address] [phone] [facility] Neurosurgery Start: 12-01-2020 End: 12-01-2020 Admission to same day surgery center 12/01/2020 Surgery IP Unit Hernandez Tovar MD [address] [address] [phone] L 4-5 PLIF (POSTERIOR LUMBAR INTERBODY FUSION) [...] Hospital Encounter IP Unit Hernandez Tovar MD [address] [address] [phone] [facility] Start: 11-20-2020 Annual Wellness Visit (AWV) Annual Wellness Visit (AWV) [employer] Phone: Start: 06-05-2020 Creatinine monitoring Creatinine monitoring [employer] Phone: Start: 06-05-2020 Potassium monitoring Potassium monitoring [employer] Phone: Start: 02-19-2020 Abdominal aortic aneurysm screening AAA screen [facility] Start: 02-19-2020 Pneumococcal 65+ years Vaccine (1 of 1 - PPSV23) Pneumococcal 65+ years Vaccine (1 of 1 - PPSV23) [employer] Phone: Start: 02-19-2020 Pneumococcal 65+ years Vaccine (2 of 2 - PPSV23) Pneumococcal 65+ years Vaccine (2 of 2 - PPSV23) [employer] Phone: Start: 06-19-2019 End: 06-19-2019 Patient encounter procedure 06/19/2019 Office Visit Neurosurgery Hernandez Tovar MD [address] [facility], [address] [place] [id number] [employer] Start: 01-25-2019 Influenza vaccination Flu vaccine (#1) [employer] Phone: Start: 04-23-2016 Shingles Vaccine (2 of 3) Shingles Vaccine (2 of 3) [facility] Start: 2005 Colon cancer screen colonoscopy Colon cancer screen colonoscopy [employer] Phone: Start: 2005 Screening for malignant neoplasm of colon Colon cancer screen colonoscopy [employer] Phone: Start: 2005 Shingles Vaccine (1 of 2) Shingles Vaccine (1 of 2) [employer] Phone: Start: 02-19-2000 Screening for malignant neoplasm of colon [facility] Start: 1995 Diabetes screen Diabetes screen [employer] Phone: Start: 1995 Lipid screen Lipid screen [employer] Phone: Start: 1995 Prostate specific antigen measurement Prostate Specific Antigen (PSA) Screening or Monitoring [facility] Start: 1974 DTaP/Tdap/Td vaccine (1 - Tdap) DTaP/Tdap/Td vaccine (1 - Tdap) [facility] Start: 1973 Diabetic microalbuminuria test Diabetic microalbuminuria test [employer] Phone: Start: 1973 Diabetic retinal exam Diabetic retinal exam [facility] Start: 1973 Hepatitis C screening Hepatitis C screen [facility] Start: 1973 Urine screening for protein Diabetic microalbuminuria test [facility] Start: 1970 HIV screen HIV screen [employer] Phone: Start: 1970 HIV screening HIV screen [employer] Phone: Start: 1967 COVID-19 Vaccine (1) COVID-19 Vaccine (1) [employer] Phone: Start: 1966 DTaP/Tdap/Td vaccine (1 - Tdap) DTaP/Tdap/Td vaccine (1 - Tdap) [employer] Phone: Start: 1965 Diabetic foot examination Diabetic foot exam [facility] Start: 1965 Diabetic retinal exam Diabetic retinal exam [employer] Phone: Start: 1965 Hemoglobin A1c measurement A1C test (Diabetic or Prediabetic) [employer] Phone: Start: 1965 Lipid panel [facility] Start: 1955 Annual Wellness Visit (AWV) Annual Wellness Visit (AWV) [facility] Start: 1955 Hepatitis C screen Hepatitis C screen [employer] Phone: Start: 1955 Hepatitis C screening Hepatitis C screen [facility] Continuous pulse oximetry Pulse oximetry, continuous Respiratory Care Routine Every 4hr until discontinued starting 12/06/2020 [employer] Phone: Comment on above: Every 4hr until discontinued starting Glucose [Mass/volume ] in Serum or Plasma [employer] Phone: Comment on above: 4X Daily (AC & HS) until discontinued st arting 12/06/2020 As Needed until disc ontinued starting 12/06/2020 End: 08-22-2021 Glucose [Mass/volume] in Serum or Plasma POCT Glucose Point of Care Testing STAT One Time for 1 Occurrences starting 08/22/2021 until 08/22/2021 [facility] Comment on above: One Time for 1 Occurrences starting 07/26 until 08/22/2021 Glucose [Mass/volume ] in Serum or Plasma POCT Glucose Point of Care Testing STAT As Needed until discontinued starting 09/05/2021 [employer] Phone: Comment on above: As Needed until discontinued starting Glucose [Mass/volume ] in Serum or Plasma [employer] Phone: Comment on above: 4X Daily (AC & HS) until discontinued st arting 09/05/2021 As Needed until disc ontinued starting 09/05/2021 Incentive spirometry Incentive s pirometry Respiratory Care Routine Every 2hr while awake until discontinued starting 06/04/2019 [employer] Phone: Comment on above: Every 2hr while awake until discontinued starting 06/04/2019 Initiate Oxygen Ther apy Protocol Initiate Oxygen Therapy Protocol Respiratory Care Routine Daily until discontinued starting 06/04/2019 [employer] Phone: Comment on above: Daily until discontinued starting 2019 Oxygen therapy [Mini mum Data Set] Initiate Oxygen Therapy Protocol Respiratory Care Routine Daily until discontinued starting 12/06/2020 [employer] Phone: Comment on above: Daily until discontinued starting 2020 Oxygen therapy [Mini mum Data Set] Initiate Oxygen Therapy Protocol Respiratory Care Routine Daily until discontinued starting 09/05/2021 [employer] Phone: Comment on above: Daily until discontinued starting 2021 Pulse oximetry, continuous Pulse oximetry, continuous Respiratory Care Routine Every 4hr until discontinued starting 06/04/2019 [employer] Phone: Comment on above: Every 4hr until discontinued starting Spirometry panel Incentive janiya metry Respiratory Care Routine Every 2hr while awake until discontinued starting 12/06/2020 [employer] Phone: Comment on above: Every 2hr while awake until discontinued starting 12/06/2020 Surgical Pathology [employer] [facility] Work Phone: Comment on above: Release Upon Ordering for 1 Occurrences starting 12/06/2020 ONE TIME for 1 Occur rences starting 06/04/2019 Problems Active Problems Problem Classification Problem Date Documented Da te Episodic/Chronic Abdominal pain (3 sources) Abdominal pain; Translations: [Unspecified abdominal pain] Episodic Acute and unspecified renal failure (1 source) Acute kidney failure, unspecified; Translations: [ACUTE KIDNEY FAILURE UNSPECIFIED] Onset: 10-23-2022 Episodic Cardiac dysrhythmias (9 sources) Atrial fibrillation; Translations: [Unspecified atrial fibrillation] Onset: 10-28-2013 11-25-2020 Chronic Chronic kidney disease (3 sources) Chronic kidney disease stage 4; Translations: [Chronic kidney disease, stage 4 (severe)] Chronic Conditions associated with dizziness or vertigo (2 sources) Dizziness and giddiness; Translations: [Dizziness and giddiness] Onset: 07-18-2023 Episodic Congestive heart failure; nonhypertensive (1 source) Heart failure, unspecified; Translations: [HEART FAILURE UNSPECIFIED] Onset: 10-23-2022 Chronic Coronary atherosclerosis and other heart disease (2 sources) Atherosclerotic heart disease of [place] coronary artery without angina pectoris; Translations: [Coronary atherosclerosis due to calcified coronary lesion] Onset: 07-09-2022 Chronic Deficiency and other anemia (3 sources) Iron deficiency anemia; Translations: [Iron deficiency anemia, unspecified] Episodic Deficiency and other anemia (3 sources) Deficiency anemias; Translations: [Nutritional anemia, unspecified] Episodic Diabetes mellitus with complications (6 sources) Type 2 diabetes mellitus with diabetic [...] WITHOUT ESOPHAGITIS] Onset: 10-23-2022 Chronic Essential hypertension (12 sources) Essential hypertension; Translations: [Essential (primary) hypertension] [...] 1-4/UNS CKD] Onset: 10-23-2022 Chronic Mood disorders (3 sources) Recurrent major depression; Translations: [Major depressive disorder, recurrent, unspecified] Chronic Mood disorders (1 source) Mood disorders; Translations: [DEPRESSION UNSPECIFIED] Onset: 10-23-2022 Other aftercare (1 source) Other fpc (current) drug therapy; Translations: [OTH [facility] CURRENT DRUG THERAPY] Onset: 10-23-2022 Episodic Other aftercare (1 source) 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-steroidal anti-inflammatories (NSAID); Translations: [TIMBER CRUISER USE NSAID] Onset: 10-23-2022 Episodic Other aftercare (1 source) correction (current) use of aspirin; Translations: [TIMBER CRUISER CURRENT USE OF ASPIRIN] Onset: 10-23-2022 Episodic Other and ill-defined heart disease (2 sources) Cardiomegaly; Translations: [Cardiomegaly] Onset: 07-18-2023 Chronic Other circulatory disease (1 source) Orthostatic hypotension; [...] Onset: 12-12-2022 Episodic Other nervous system disorders (2 sources) Impairment of balance; Translations: [Other abnormalities of [...] subsequent encounter for fracture with nonunion] Onset: 07-02-2021 Episodic Other lower respiratory disease (1 source) [...] Translations: [LOW BACK PAIN, UNSPECIFIED] Onset: 09-18-2022 Procedures Date Procedure Procedure Detail Performing Clinician Start: 12-12-2022 CT of head without contrast IRAIS Hernandez Work Phone: Start: 12-06-2021 End: 12-06-2021 Radex ribs uni w/posteroant ch minimum 3 views Skye Garcia MD Work Phone: Start: 09-06-2021 GLUCOSE, WHOLE BLOOD Niranjan Molina MD Work Phone: Start: 09-06-2021 Dup-scan xtr veins unilateral/limited study Shmuel Joaquin Wyatt CARE DIRECTOR RN - MILITARY EXCHANGE WIRELESS MANAGER Work Phone: Start: 09-06-2021 GLUCOSE, WHOLE BLOOD Niranjan Molina MD Work Phone: Start: 09-06-2021 Basic metabolic pane l calcium total Zenia Molina MD Work Phone: Start: 09-05-2021 GLUCOSE, WHOLE BLOOD Niranjan Molina MD Work Phone: Start: 09-05-2021 GLUCOSE, WHOLE BLOOD Niranjan Molina MD Work Phone: Start: 09-05-2021 Radex shoulder 1 view D tigre Molina MD Work Phone: Start: 09-05-2021 GLUCOSE, WHOLE BLOOD Niranjan Molina MD Work Phone: Start: 08-22-2021 GLUCOSE, [...] 12-08-2020 Blood count complete automated Adjondi Brigid Morillo CARE DIRECTOR RN - MILITARY EXCHANGE WIRELESS MANAGER Work Phone: Start: 12-08-2020 Gluc bld gluc [...] sac spi w/skull 2/3 vw Belinda Pittak CARE DIRECTOR RN - MILITARY EXCHANGE WIRELESS MANAGER Work Phone: Start: 06-08-2019 Gluc bld gluc [...] Start: 06-04-2019 Blood typing serologic abo Susie Shultz Rosa CARE DIRECTOR RN - MILITARY EXCHANGE WIRELESS MANAGER Work Phone: Start: 06-04-2019 End: 06-04-2019 Basic metabolic panel calcium total Susie Moorebes CARE DIRECTOR RN - MILITARY EXCHANGE WIRELESS MANAGER Work Phone: Results Test Name Value Interpretation Reference Range Facility 36on 07-29-2023 36 Please let him know his ECHO looked good, normal function, no changes. We haven't seen where he is on any form of anticoagulation for his history of a.fib. Can we check to see if his PCP has any documentation of contraindication for anticoagulation? Can we also see if she has any documentation of his a.fib like a prior EKG or monitor? If there is no contraindication to anticoagulation, I would recommend switching aspirin to Eliquis 5mg BID with a follow-up CBC in 1 month. We can also make an appt to further discuss options for a.fib management with either blood thinners or LAAO device with his hx of falls. Thanks! Normal [facility] Telephoneon 07-29-2023 Telephone [id number] Deondre Lr Franci 1955 [facility] Provider Department Center 07/29/[address] No family history on file Normal [facility] Office Visiton 07-18-2023 Follow-up visit [id number] Deondre Lr Frnaci 1955 [facility] Department Center 07/18/2023 RAVEN CARVAJAL [facility] No family history on file Level of Service:[address]843 [place] OFFICE/OUTPATIENT ESTABLISHED MOD MDM 30 MIN Normal [facility] CT head/brain wo conon 12-12 CT head/brain wo con [facility] [place] [address] CT Scan Report Signed Patient: Deondre Lr MR#: [id number] 7 : 1955 Acct:[id number] Age/Sex: 67 / M ADM Date: 12/12/22 Loc: CT Room: Type: [facility] Attending Dr: Berta Hernandez APRN BRIM PLATER-C Copies to: Berta Hernandez APRN, CNP Ordering [...] Debby Ray M.D.12/12/2022 3:54 PM Dictation Location: [place] [address] Transcribed By: [facility] 12/12/22 1554 Dictated By: Debby Ray II, MD 12/12/22 1551 Signed By: 12/12/22 1554 [facility] CULTURE URINEon 10-21-2022 CULTURE URINE Isolate [...] S F Levofloxacin 0.25 S F Normal [facility] Comment on above: Performed By: #### U RCX ####[facility] [address] [place], [place] [address]Dr. Olga So CBC AUTO DIFFon 10-19-2022 BASO # 0.0 103/ul Normal 0.0-0.1 [facility] Comment on above: Performed By: #### C MP, HSTROPN, TSH #### [facility] [address] [place] [address] Dr. Olga So Basophils/100 WBC (Bld) 0.6 % Normal 0.2-2.0 [facility] Comment on above: Performed By: #### C MP, HSTROPN, TSH #### [facility] [address] [place] [address] Dr. Olga So EO # 0.2 103/ul Normal 0.0-0.7 [facility] Comment on above: Performed By: #### C MP, HSTROPN, TSH #### [facility] [address] [place] [address] Dr. Olga So Eosinophils/100 WBC (Bld) 3.7 % Normal 0.9-7.0 [facility] Comment on above: Performed By: #### C MP, HSTROPN, TSH #### [facility] [address] [place] [address] Dr. Olga So Erythrocyte distribution width (RBC) [Ratio] 13.0 % Normal 11.0-15.0 [facility] Comment on above: Performed By: #### C MP, HSTROPN, TSH #### [facility] [address] [place] [address] Dr. Olga So Hematocrit (Bld) [Volume fraction] 28.8 % Critically low 42.0-54.0 [facility] Comment on above: Performed By: #### C MP, HSTROPN, TSH #### [facility] [address] [place] [address] Dr. Olga So Hemoglobin (Bld) [Mass/Vol] 9.3 g/dL Critically low 14.0-18.0 [facility] Comment on above: Performed By: #### C MP, HSTROPN, TSH #### [facility] [address] [place] [address] Dr. Olga So IG # 0.02 10e3/ul Normal 0.00-0.03 [facility] Comment on above: Performed By: #### C HYUN HSTROPN, TSH #### [facility] [address] [place] [address] Dr. Olga So IG % 0.3 % Normal 0.0-0.5 [facility] Comment on above: Performed By: #### C HYUN, HSTROPN, TSH #### [facility] [address] [place] [address] Dr. Olga So LYMPH # 2.2 103/ul Normal 1.2-3.8 [facility] Comment on above: Performed By: #### C HYUN HSTROPN, TSH #### [facility] [address] [place] [address] Dr. Olga So Lymphocytes/100 WBC (Bld) 33.8 % Normal 20.5-60.0 [facility] Comment on above: Performed By: #### C HYUN, HSTROPN, TSH #### [facility] [address] [place] [address] Dr. Olga So MANUAL DIFF REQ NO Normal [facility] Comment on above: Performed By: #### C HYUN HSTROPN, TSH #### [facility] [address] [place] [address] Dr. Olga So MCH (RBC) [Entitic mass] 30.4 pg Normal 25.9-34.0 [facility] Comment on above: Performed By: #### C HYUN, HSTROPN, TSH #### [facility] [address] [place] [address] Dr. Olga So MCHC (RBC) [Mass/Vol] 32.3 g/dL Normal 29.9-35.2 [facility] Comment on above: Performed By: #### C HYUN, HSTROPN, TSH #### [facility] [address] [place] [address] Dr. Olga So MCV (RBC) [Entitic vol] 94.1 fL Critically high 80.0-94.0 [facility] Comment on above: Performed By: #### C MP, HSTROPN, TSH #### [facility] [address] [address] [address] Olga So MONO # 0.5 103/ul Normal 0.3-0.8 [facility] Comment on above: Performed By: #### C MP, HSTROPN, TSH #### [facility] [address] [place] [address] Dr. Olga So Monocytes/100 WBC (Bld) 7.1 % Normal 1.7-12.0 [facility] Comment on above: Performed By: #### C MP, HSTROPN, TSH #### [facility] [address] [place] [address] Dr. Olga So NEUT # 3.5 103/ul Normal 1.4-6.5 [facility] Comment on above: Performed By: #### C MP, HSTROPN, TSH #### [facility] [address] [place] [address] Dr. Olga So Neutrophils/100 WBC (Bld) 54.5 % Normal 43.0-75.0 [facility] Comment on above: Performed By: #### C MP, HSTROPN, TSH #### [facility] [address] [place] [address] Dr. Olga So Platelet mean volume (Bld) [Entitic vol] 9.3 fL Critically low 9.5-13.5 [facility] Comment on above: Performed By: #### C MP, HSTROPN, TSH #### [facility] [address] [place] [address] Dr. Olga So PLT 276 103/ul Normal 150-450 [facility] Comment on above: Performed By: #### C MP, HSTROPN, TSH #### [facility] [address] [place] [address] Dr. Olga So RBC 3.06 106/ul Critically low 4.70-6.10 The [facility] Comment on above: Performed By: #### C MP, HSTROPN, TSH #### [facility] [address] [address] [address] Olga So WBC 6.5 103/ul Normal 4.0-11.0 [facility] Comment on above: Performed By: #### C MP, HSTROPN, TSH #### [facility] [address] [address] [address] Olga So POINT OF CARE GLUCOSEon 09-25 Glucose [Mass/Vol] 156 mg/dL Critically high 74-106 [facility] Comment on above: Performed By: #### P OCGLUC #### [facility] [address] [address] [address] Olga So Glucose [Mass/Vol] 143 mg/dL Critically high 74-106 [facility] Comment on above: Performed By: #### P OCGLUC #### [facility] [address] [place] [address] Dr. Olga So PROF 14(COMP METB)on 023 Albumin [Mass/Vol] 2.9 g/dL Critically low 3.4-5.0 [facility] Comment on above: Performed By: #### P OCGLUC #### [facility] [address] [place] [address] Dr. Olga So Albumin/Globulin [Mass ratio] 0.6 {ratio} Normal [facility] Comment on above: Performed By: #### P OCGLUC #### [facility] [address] [address] [address] Olga So ALP [Catalytic activity/Vol] 155 U/L Critically high 46-116 [facility] Comment on above: Performed By: #### P OCGLUC #### [facility] [address] [address] [address] Olga So ALT [Catalytic activity/Vol] 23 U/L Normal 16-63 [facility] Comment on above: Performed By: #### P OCGLUC #### [facility] [address] [place] [address] Dr. Olga So Anion gap [Moles/Vol] 12.4 mmol/L Normal [facility] Comment on above: Performed By: #### P OCGLUC #### [facility] [address] [address] [address] Olga So AST [Catalytic activity/Vol] 19 U/L Normal 15-37 [facility] Comment on above: Performed By: #### P OCGLUC #### [facility] [address] [address] [address] Olga So Calcium [Mass/Vol] 8.5 mg/dL Normal 8.5-10.1 [facility] Comment on above: Performed By: #### P OCGLUC #### [facility] [address] [address] [address] Olga So Chloride [Moles/Vol] 104 mmol/L Normal 98-107 [facility] Comment on above: Performed By: #### P OCGLUC #### [facility] [address] [address] [address] Olga So CO2 [Moles/Vol] 27.3 mmol/L Normal 21.0-32.0 [facility] Comment on above: Performed By: #### P OCGLUC #### [facility] [address] [address] [address] Olga So Creatinine [Mass/Vol] 1.13 mg/dL Normal 0.70-1.30 [facility] Comment on above: Performed By: #### P OCGLUC #### [facility] [address] [address] [address] Olga So EGFR-AF ETHIOPIAN >60 Normal >=60 [facility] Comment on above: Performed By: #### P OCGLUC #### [facility] [address] [address] [address] Olga So EGFR-NON AF ETHIOPIAN >60 Normal >=60 [facility] Comment on above: Performed By: #### P OCGLUC #### [facility] [address] [address] [address] Olga So Globulin (S) [Mass/Vol] 4.7 g/dL Normal [facility] Comment on above: Performed By: #### P OCGLUC #### [facility] [address] [address] [address] Olga So Glucose [Mass/Vol] 147 mg/dL Critically high 74-106 [facility] Comment on above: Performed By: #### P OCGLUC #### [facility] [address] [address] [address] Olga So Potassium [Moles/Vol] 4.7 mmol/L Normal 3.5-5.1 [facility] Comment on above: Performed By: #### P OCGLUC #### [facility] [address] [address] [address] Olga So Protein [Mass/Vol] 7.6 g/dL Normal 6.4-8.2 [facility] Comment on above: Performed By: #### P OCGLUC #### [facility] [address] [address] [address] Olga So Sodium [Moles/Vol] 139 mmol/L Normal 136-145 [facility] Comment on above: Performed By: #### P OCGLUC #### [facility] [address] [address] [address] Olga So TBIL <0.1 Critically low 0.2-1.0 [facility] Comment on above: Performed By: #### P OCGLUC #### [facility] [address] [address] [address] Olga So Urea nitrogen [Mass/Vol] 16.0 mg/dL Normal 7.0-18.0 [facility] Comment on above: Performed By: #### P OCGLUC #### [facility] [address] [address] [address] Olga So Urea nitrogen/Creatinine [Mass ratio] 14.2 mg/mg Normal [facility] Comment on above: Performed By: #### P OCGLUC #### [facility] [address] [address] [address] Olga So ECHOCARDIO M/2D COMPLETEon 0 10-18-2022 ECHOCARDIO M/2D COMPLETE Patient: DEONDRE LRNickolas Exam Date: 10/18/2022 : 1955 Gender:M Ordering : SHAIKH Uyen VARGAS . Admission #: [id number] Family : DR MIKE YUAN M.D. Order #: [id number] CLICK HERE TO VIEW EXAM ECHOCARDIOGRAM REPORT [...] Left Atrium LA Volume Index (2D A2C): 24820 mm3 Left Atrium Systolic Dimension: 4.30 cm [...] [place] M.D. on 10/19/2022 at 10:43 Normal [facility] POINT OF CARE GLUCOSEon - Glucose [Mass/Vol] 187 mg/dL Critically high [facility]106 [facility] Comment on above: Performed By: #### P OCGLUC #### [facility] [address] [address] [address] Olga So Glucose [Mass/Vol] 109 mg/dL Critically high [address] [place] [address] Comment on above: Performed By: #### P OCGLUC #### [facility] [address] [address] [address] Olga So Glucose [Mass/Vol] 162 mg/dL Critically high [address] [place] [address] Comment on above: Performed By: #### C MP, HSTROPN, TSH #### [facility] [address] [address] [address] Olga So Glucose [Mass/Vol] 117 mg/dL Critically high [address] [place] [address] Comment on above: Performed By: #### P OCGLUC #### [facility] [address] [address] [address] Olga So Glucose [Mass/Vol] 169 mg/dL Critically high [address] [place] [address] Comment on above: Performed By: #### P OCGLUC #### [facility] [address] [address] [address] Olga So US CAROTID ART BILon -25-2 023 US CAROTID ART NOHELIA EXAMINATION: US [...] by: RAMONA WAGGONER Date: 2022-10-18 16:24 Normal [facility] XR LSPINE 2_3 VIEWSon 2022 XR LSPINE [...] by: RAMONA WAGGONER Date: 2022-10-18 14:35 Normal [facility] XR SHOULDER NOHELIA 2V or >on [...] RAMONA WAGGONER Date: 2022-10-18 12:15 Normal [facility] CBC AUTO DIFFon 10-17-2022 BASO # 0.1 103/ul Normal 0.0-0.1 [facility] Comment on above: Performed By: #### P OCGLUC #### [facility] [address] [address] [address] Olga So Basophils/100 WBC (Bld) 0.5 % Normal 0.2-2.0 [facility] Comment on above: Performed By: #### P OCGLUC #### [facility] [address] [place] [address] Dr. Olga So EO # 0.3 103/ul Normal 0.0-0.7 [facility] Comment on above: Performed By: #### P OCGLUC #### [facility] [address] [address] [address] Olga So Eosinophils/100 WBC (Bld) 3.0 % Normal 0.9-7.0 [facility] Comment on above: Performed By: #### P OCGLUC #### [facility] [address] [place] [address] Dr. Olga So Erythrocyte distribution width (RBC) [Ratio] 13.3 % Normal 11.0-15.0 [facility] Comment on above: Performed By: #### P OCGLUC #### [facility] [address] [place] [address] Dr. Olga oS Hematocrit (Bld) [Volume fraction] 32.6 % Critically low 42.0-54.0 [facility] Comment on above: Performed By: #### P OCGLUC #### [facility] [address] [place] [address] Dr. Olga So Hemoglobin (Bld) [Mass/Vol] 10.1 g/dL Critically low 14.0-18.0 [facility] Comment on above: Performed By: #### P OCGLUC #### [facility] [address] [address] [address] Olga So IG # 0.04 10e3/ul Critically high 0.00-0.03 [facility] Comment on above: Performed By: #### P OCGLUC #### [facility] [address] [address] [address] Olga So IG % 0.4 % Normal 0.0-0.5 [facility] Comment on above: Performed By: #### P OCGLUC #### [facility] [address] [address] [address] Olga So LYMPH # 2.5 103/ul Normal 1.2-3.8 [facility] Comment on above: Performed By: #### P OCGLUC #### [facility] [address] [address] [address] Olga So Lymphocytes/100 WBC (Bld) 24.3 % Normal 20.5-60.0 [facility] Comment on above: Performed By: #### P OCGLUC #### [facility] [address] [address] [address] Olga So MANUAL DIFF REQ NO Normal [facility] Comment on above: Performed By: #### P OCGLUC #### [facility] [address] [address] [address] Olga So MCH (RBC) [Entitic mass] 30.2 pg Normal 25.9-34.0 [facility] Comment on above: Performed By: #### P OCGLUC #### [facility] [address] [address] [address] Olga So MCHC (RBC) [Mass/Vol] 31.0 g/dL Normal 29.9-35.2 [facility] Comment on above: Performed By: #### P OCGLUC #### [facility] [address] [address] [address] Olga So MCV (RBC) [Entitic vol] 97.6 fL Critically high 80.0-94.0 [facility] Comment on above: Performed By: #### P OCGLUC #### [facility] [address] [address] [address] Olga So MONO # 0.8 103/ul Normal 0.3-0.8 [facility] Comment on above: Performed By: #### P OCGLUC #### [facility] [address] [address] [address] Olga So Monocytes/100 WBC (Bld) 7.3 % Normal 1.7-12.0 [facility] Comment on above: Performed By: #### P OCGLUC #### [facility] [address] [address] [address] Olga So NEUT # 6.7 103/ul Critically high 1.4-6.5 The [facility] Comment on above: Performed By: #### P OCGLUC #### [facility] [address] [place] [address] Dr. Olga So Neutrophils/100 WBC (Bld) 64.5 % Normal 43.0-75.0 [facility] Comment on above: Performed By: #### P OCGLUC #### [facility] [address] [place] [address] Dr. Olga So Platelet mean volume (Bld) [Entitic vol] 9.7 fL Normal 9.5-13.5 [facility] Comment on above: Performed By: #### P OCGLUC #### [facility] [address] [place] [address] Dr. Olga So PLT 402 103/ul Normal 150-450 [facility] Comment on above: Performed By: #### P OCGLUC #### [facility] [address] [place] [address] Dr. Olga So RBC 3.34 106/ul Critically low 4.70-6.10 The [facility] Comment on above: Performed By: #### P OCGLUC #### [facility] [address] [place] [address] Dr. Olga So WBC 10.4 103/ul Normal 4.0-11.0 [facility] Comment on above: Performed By: #### P OCGLUC #### [facility] [address] [place] [address] HEAD WO CONon [...] by: PANDA GURROLA Date: 2022-10-17 19:22 Normal [facility] CULTURE BLOODon 10-17-2022 Microscopic examination of blood, culture Culture Observations: NO GROWTH AT 5 DAYS. Normal [facility] Comment on above: Performed By: #### B LDCX2 ####[facility] [address] [address] Olga So Performed By: #### B LDCX1 ####[facility] [address] [place] [address]Dr[address] Olga So ER URINE PROFILEon 3 Bilirubin Ql (U) Negative Normal NEGATIVE [facility] Comment on above: Performed By: #### U MICRO, ERUR #### [facility] [address] [place] [address] Dr. Olga So Clarity (U) CLEAR Normal CLEAR [facility] Comment on above: Performed By: #### U MICRO, ERUR #### [facility] [address] [address] [address] Olga So Color (U) LT. YELLOW Normal YELLOW [facility] Comment on above: Performed By: #### U MICRO, ERUR #### [facility] [address] [place] [address] Dr. Olga So ERUAHD A micrscopic examination will be performed if indicated. Normal [facility] Comment on above: Performed By: #### U MICRO, ERUR #### [facility] [address] [address] [address] Olga So Glucose Ql (U) Negative Normal NEGATIVE [facility] Comment on above: Performed By: #### U MICRO, ERUR #### [facility] [address] [address] [address] Olga So Hemoglobin Ql (U) Negative Normal NEGATIVE [facility] Comment on above: Performed By: #### U MICRO, ERUR #### [facility] [address] [address] [address] Olga So Ketones Ql (U) Negative Normal NEGATIVE [facility] Comment on above: Performed By: #### U MICRO, ERUR #### [facility] [address] [place] [address] Dr. Olga So LEUKOCYTES SMALL Abnormal NEGATIVE [facility] Comment on above: Performed By: #### U MICRO, ERUR #### [facility] [address] [place] [address] Dr. Olga So Nitrite Ql (U) Positive Abnormal NEGATIVE [facility] Comment on above: Performed By: #### U MICRO, ERUR #### [facility] [address] [address] [address] Olga So pH (U) 5.5 [pH] Normal 5-9 [facility] Comment on above: Performed By: #### U MICRO, ERUR #### [facility] [address] [address] [address] Olga So SPEC GRAVITY 1.020 Normal 1.005-<=1.[address] [place] [address] Comment on above: Performed By: #### U MICRO, ERUR #### [facility] [address] [address] [address] Olga So UA PROTEIN Negative Normal NEGATIVE/ TRACE [facility] Comment on above: Performed By: #### U MICRO, ERUR #### [facility] [address] [address] [address] Olga So UR MICRO IND INDICATED Normal [facility] Comment on above: Performed By: #### U MICRO, ERUR #### [facility] [address] [address] [address] Olga So Urobilinogen Qn (U) 0.2 {Judson'U}/dL Normal 0.2 - 1. 0 [facility] Comment on above: Performed By: #### U MICRO, ERUR #### [facility] [address] [address] [address] Olga So LACTATE/LACTIC ACIDon 2022 Lactate [Moles/Vol] 0.8 mmol/L Normal 0.4-2.0 [facility] Comment on above: Performed By: #### L ACT ####[facility] [address] [address]Dr. lOga So PROF 14(COMP METB)on 023 Albumin [Mass/Vol] 3.7 g/dL Normal 3.4-5.0 [facility] Comment on above: Performed By: #### C MP, HSTROPN, TSH #### [facility] [address] [address] [address] Olga So Albumin/Globulin [Mass ratio] 0.7 {ratio} Normal [facility] Comment on above: Performed By: #### C MP, HSTROPN, TSH #### [facility] [address] [address] [address] Olga So ALP [Catalytic activity/Vol] 160 U/L Critically high 46-116 [facility] Comment on above: Performed By: #### C MP, HSTROPN, TSH #### [facility] [address] [address] [address] Olga So ALT [Catalytic activity/Vol] 18 U/L Normal 16-63 [facility] Comment on above: Performed By: #### C MP, HSTROPN, TSH #### [facility] [address] [address] [address] Olga So Anion gap [Moles/Vol] 13.2 mmol/L Normal [facility] Comment on above: Performed By: #### C MP, HSTROPN, TSH #### [facility] [address] [address] [address] Olga So AST [Catalytic activity/Vol] 17 U/L Normal 15-37 [facility] Comment on above: Performed By: #### C MP, HSTROPN, TSH #### [facility] [address] [address] [address] Olga So Bilirubin [Mass/Vol] 0.2 mg/dL Normal 0.2-1.0 [facility] Comment on above: Performed By: #### C MP, HSTROPN, TSH #### [facility] [address] [address] [address] Olga So Calcium [Mass/Vol] 8.2 mg/dL Critically low 8.5-10.1 Th [facility] Comment on above: Performed By: #### C MP, HSTROPN, TSH #### [facility] [address] [place] [address] Dr. Olga So Chloride [Moles/Vol] 106 mmol/L Normal 98-107 [facility] Comment on above: Performed By: #### C MP, HSTROPN, TSH #### [facility] [address] [address] [address] Olga So CO2 [Moles/Vol] 26.3 mmol/L Normal 21.0-32.0 [facility] Comment on above: Performed By: #### C MP, HSTROPN, TSH #### [facility] [address] [address] [address] Olga So Creatinine [Mass/Vol] 2.30 mg/dL Critically high 0.70-1.30 [facility] Comment on above: Performed By: #### C MP, HSTROPN, TSH #### [facility] [address] [place] [address] Dr. Olga So EGFR-AF ETHIOPIAN 35 mL/min/1.73m2 Critically low >=60 [facility] Comment on above: Performed By: #### C MP, HSTROPN, TSH #### [facility] [address] [place] [address] Dr. Olga So EGFR-NON AF ETHIOPIAN 29 mL/min/1.73m2 Critically low >=60 [facility] Comment on above: Performed By: #### C HYUN HSTROPN, TSH #### [facility] [address] [address] [address] Olga So Globulin (S) [Mass/Vol] 5.2 g/dL Normal [facility] Comment on above: Performed By: #### C HYUN, HSTROPN, TSH #### [facility] [address] [address] [address] Olga So Glucose [Mass/Vol] 124 mg/dL Critically high 74-106 [facility] Comment on above: Performed By: #### C HYUN HSTROPN, TSH #### [facility] [address] [place] [address] Dr. Olga So Potassium [Moles/Vol] 4.5 mmol/L Normal 3.5-5.1 [facility] Comment on above: Performed By: #### C HYUN, HSTROPN, TSH #### [facility] [address] [address] [address] Olga So Protein [Mass/Vol] 8.9 g/dL Critically high 6.4-8.2 [facility] Comment on above: Performed By: #### C HYUN, HSTROPN, TSH #### [facility] [address] [address] [address] Olga So Sodium [Moles/Vol] 141 mmol/L Normal 136-145 [facility] Comment on above: Performed By: #### C MP, HSTROPN, TSH #### [facility] [address] [place] [address] Dr. Olga So Urea nitrogen [Mass/Vol] 52.0 mg/dL Critically high 7.0-18.0 [facility] Comment on above: Performed By: #### C HYUN, HSTROPN, TSH #### [facility] [address] [address] [address] Olga So Urea nitrogen/Creatinine [Mass ratio] 22.6 mg/mg Normal [facility] Comment on above: Performed By: #### C MP, HSTROPN, TSH #### [facility] [address] [address] [address] Olga So PROTIMEon 10-17-2022 INR Coag (PPP) [Relative time] 0.95 {INR} Normal [facility] Comment on above: Performed By: #### P TT, PT ####[facility] [address] [address]Dr. Olga So INR GUIDELINES SEE BELOW Normal [facility] Comment on above: Result Comment: DEBBIE RED INR: 2.0 - 3.0 CONDITIONS NOT LISTED BELOW 2.5 - 3.5 FOR PROSTHETIC HEART VALVE REPLACEMENT 2.5 - 3.5 RECURRENT THROMBOSIS Performed By: #### P TT, PT ####[facility] [address] [address]Dr. Olga So PT Coag (PPP) [Time] 10.1 s Normal 9.0-11.6 [facility] Comment on above: Performed By: #### P TT, PT ####[facility] [address] [address]Dr. Olga So PTTon 10-17-2022 aPTT Coag (Bld) [Time] 29.3 s Normal 22.3-36.2 Th [facility] Comment on above: Performed By: #### P TT, PT #### [facility] [address] [address] [address] Olga So TROPONIN, HIGH SENSITIVITYon 10-17-2022 HSTROP 5.5 pg/mL Normal 4.0-76.1 [facility] Comment on above: Result Comment: CUT- OFF POINTS HAVE BEEN ESTABLISHED BASED ON THE FOURTH UNIVERSAL DEFINITIONS OF MYOCARDIAL INFARCTION. THE UPPER REFERENCE LIMIT (URL) OF TROPONIN, DEFINED THE 99TH PERCENTILE OF cTnI DISTRIBUTION IN A REFERENCE POPULATION, HAS BEEN CONFIRMED THE DECISION THRESHOLD FOR AK DIAGNOSIS. Performed By: #### C MP, HSTROPN, TSH #### [facility] [address] [address] [address] Olga So TSHon 10-17-2022 TSH 0.980 uIU/mL Normal 0.358-3.740 [facility] Comment on above: Performed By: #### C MP, HSTROPN, TSH #### [facility] [address] [place] [address] Dr. Olga So URINE MICROSCOPIC ONLYon BACTERIA SMALL Abnormal NONE SEEN [facility] Comment on above: Performed By: #### U MICRO, ERUR #### [facility] [address] [place] [address] Dr. Olga So Bacteria identified Cx Nom (U) INDICATED Normal [facility] Comment on above: Performed By: #### U MICRO, ERUR #### [facility] [address] [place] [address] Dr. Olga So CAST NONE SEEN Normal NONE SEEN [facility] Comment on above: Performed By: #### U MICRO, ERUR #### [facility] [address] [place] [address] Dr. Olga So Crystals LM Nom (Urine sed) NONE SEEN Normal NONE SEEN [facility] Comment on above: Performed By: #### U MICRO, ERUR #### [facility] [address] [place] [address] Dr. Olga So Epithelial cells LM Ql (Urine sed) FEW Abnormal NONE SEEN /RARE [facility] Comment on above: Performed By: #### U MICRO, ERUR #### [facility] [address] [place] [address] Dr. Olga So MUCOUS NONE SEEN Normal NONE SEEN [facility] Comment on above: Performed By: #### U MICRO, ERUR #### [facility] [address] [place] [address] Dr. Olga So RBC 2-5 Abnormal 0-2 [facility] Comment on above: Performed By: #### U MICRO, ERUR #### [facility] [address] [place] [address] Dr. Olga So WBC 50-75 Abnormal NONE SEEN [facility] Comment on above: Performed By: #### U MICRO, ERUR #### [facility] [address] [place] [address] Dr. Olga So XR CHEST 1 Von [...] by: PANDA GURROLA Date: 2022-10-17 19:24 Normal [facility] XR HIPS NOHELIA 3_4V WO PELVISon [...] by: REILLY MARIA Date: 2022-09-24 16:17 Normal [facility] NM STRESS/REST MULTIon 07-05 NM STRESS/REST MULTI Patient: DEONDRE LR Exam Date: 07/05/2022 : 1955 Gender:M Ordering : DR CYDNEY REDMOND M.D. Admission #: [id number] Family : DR MIKE YUAN M.D. Order #: [id number] CLICK HERE TO VIEW EXAM RADIOLOGY REPORT [...] Maria M.D. on 07/05/2022 at 15:05 Normal [facility] CBC AUTO DIFFon 06-22-2022 BASO # 0.1 103/ul Normal 0.0-0.1 [facility] Comment on above: Performed By: #### C LORRAINE PURVIS, TSH #### [facility] [address] [address] [address] Olga So Basophils/100 WBC (Bld) 0.6 % Normal 0.2-2.0 [facility] Comment on above: Performed By: #### C ANDREA PURVISTRGEMMA, TSH #### [facility] [address] [address] [address] Olga So EO # 0.1 103/ul Normal 0.0-0.7 [facility] Comment on above: Performed By: #### C HYUN HSTRKRISHANN, TSH #### [facility] [address] [address] [address] Olga So Eosinophils/100 WBC (Bld) 1.6 % Normal 0.9-7.0 [facility] Comment on above: Performed By: #### C ANDREA PURVISTRKRISHANN, TSH #### [facility] [address] [address] [address] Olga So Erythrocyte distribution width (RBC) [Ratio] 12.3 % Normal 11.0-15.0 [facility] Comment on above: Performed By: #### C MP, HSTROPN, TSH #### [facility] [address] [place] [address] Dr. Olga So Hematocrit (Bld) [Volume fraction] 33.2 % Critically low 42.0-54.0 [facility] Comment on above: Performed By: #### C MP, HSTROPN, TSH #### [facility] [address] [place] [address] Dr. Olga So Hemoglobin (Bld) [Mass/Vol] 11.9 g/dL Critically low 14.0-18.0 [facility] Comment on above: Performed By: #### C MP, HSTROPN, TSH #### [facility] [address] [place] [address] Dr. Olga So IG # 0.03 10e3/ul Normal 0.00-0.03 [facility] Comment on above: Performed By: #### C HYUN, HSTROPN, TSH #### [facility] [address] [place] [address] Dr. Olga So IG % 0.4 % Normal 0.0-0.5 [facility] Comment on above: Performed By: #### C HYUN HSTROPN, TSH #### [facility] [address] [place] [address] Dr. Olga So LYMPH # 2.1 103/ul Normal 1.2-3.8 [facility] Comment on above: Performed By: #### C HYUN, HSTROPN, TSH #### [facility] [address] [place] [address] Dr. Olga So Lymphocytes/100 WBC (Bld) 26.4 % Normal 20.5-60.0 [facility] Comment on above: Performed By: #### C HYUN, HSTROPN, TSH #### [facility] [address] [place] [address] Dr. Olga So MANUAL DIFF REQ NO Normal [facility] Comment on above: Performed By: #### C MP, HSTROPN, TSH #### [facility] [address] [place] [address] Dr. Olga So MCH (RBC) [Entitic mass] 32.2 pg Normal 25.9-34.0 [facility] Comment on above: Performed By: #### C MP, HSTROPN, TSH #### [facility] [address] [place] [address] Dr. Olga So MCHC (RBC) [Mass/Vol] 35.8 g/dL Critically high 29.9-35.2 [facility] Comment on above: Performed By: #### C MP, HSTROPN, TSH #### [facility] [address] [place] [address] Dr. Olga So MCV (RBC) [Entitic vol] 90.0 fL Normal 80.0-94.0 [facility] Comment on above: Performed By: #### C MP, HSTROPN, TSH #### [facility] [address] [place] [address] Dr. Olga So MONO # 0.7 103/ul Normal 0.3-0.8 [facility] Comment on above: Performed By: #### C MP, HSTROPN, TSH #### [facility] [address] [place] [address] Dr. Olga So Monocytes/100 WBC (Bld) 8.0 % Normal 1.7-12.0 [facility] Comment on above: Performed By: #### C MP, HSTROPN, TSH #### [facility] [address] [place] [address] Dr. Olga So NEUT # 5.1 103/ul Normal 1.4-6.5 [facility] Comment on above: Performed By: #### C MP, HSTROPN, TSH #### [facility] [address] [place] [address] Dr. Olga So Neutrophils/100 WBC (Bld) 63.0 % Normal 43.0-75.0 [facility] Comment on above: Performed By: #### C MP, HSTROPN, TSH #### [facility] [address] [place] [address] Dr. Olga So Platelet mean volume (Bld) [Entitic vol] 9.6 fL Normal 9.5-13.5 [facility] Comment on above: Performed By: #### C LORRAINE PURVIS, TSH #### [facility] [address] [address] [address] Olga So PLT 229 103/ul Normal 150-450 [facility] Comment on above: Performed By: #### C LORRAINE PURVIS, TSH #### [facility] [address] [address] [address] Olga So RBC 3.69 106/ul Critically low 4.70-6.10 [facility] Comment on above: Performed By: #### C LORRAINE PURVIS, TSH #### [facility] [address] [address] [address] Olga So WBC 8.1 103/ul Normal 4.0-11.0 [facility] Comment on above: Performed By: #### C LORRAINE PURVIS, TSH #### [facility] [address] [address] [address] Olga So GLYCOHEMOGLOBIN A1Con 2022 ADA RECOMMENDATION SEE BELOW Normal [facility] Comment on above: Result Comment: ADA RECOMMENDED LIMIT 4.0 - 6.0 ADA THERAPEUTIC TARGET < 7.0 ACTION SUGGESTED > 7.0 Performed By: #### A 1C ####[facility] [address] [address]DrNickolas So Glucose [Mass/Vol] 131 mg/dL Normal [facility] Comment on above: Performed By: #### A 1C ####[facility] [address] [address]. Olga So HbA1c (Bld) [Mass fraction] 6.2 % Normal 4.5-6.2 [facility] Comment on above: Performed By: #### A 1C ####[facility] [address] [address]. Olga So MRSA NARES #1on 06-22-2022 MRSA NARES #1 Culture Observations: No growth of MRSA at 48 hours. Normal [facility] Comment on above: Performed By: #### M RSAN1 ####[facility] [address] [address] Olga So PROF 14(COMP METB)on 023 Albumin [Mass/Vol] 4.0 g/dL Normal 3.4-5.0 [facility] Comment on above: Performed By: #### P OCGLUC #### [facility] [address] [address] [address] Olga So Albumin/Globulin [Mass ratio] 1.0 {ratio} Normal [facility] Comment on above: Performed By: #### P OCGLUC #### [facility] [address] [address] [address] Olga So ALP [Catalytic activity/Vol] 166 U/L Critically high 46-116 [facility] Comment on above: Performed By: #### P OCGLUC #### [facility] [address] [address] [address] Olga So ALT [Catalytic activity/Vol] 24 U/L Normal 16-63 [facility] Comment on above: Performed By: #### P OCGLUC #### [facility] [address] [address] [address] Olga So Anion gap [Moles/Vol] 13.2 mmol/L Normal [facility] Comment on above: Performed By: #### P OCGLUC #### [facility] [address] [address] [address] Olga So AST [Catalytic activity/Vol] 17 U/L Normal 15-37 [facility] Comment on above: Performed By: #### P OCGLUC #### [facility] [address] [address] [address] Olga So Bilirubin [Mass/Vol] 0.3 mg/dL Normal 0.2-1.0 [facility] Comment on above: Performed By: #### P OCGLUC #### [facility] [address] [address] [address] Olga So Calcium [Mass/Vol] 9.0 mg/dL Normal 8.5-10.1 [facility] Comment on above: Performed By: #### P OCGLUC #### [facility] [address] [address] [address] Olga So Chloride [Moles/Vol] 102 mmol/L Normal 98-107 [facility] Comment on above: Performed By: #### P OCGLUC #### [facility] [address] [address] [address] Olga So CO2 [Moles/Vol] 29.0 mmol/L Normal 21.0-32.0 [facility] Comment on above: Performed By: #### P OCGLUC #### [facility] [address] [address] [address] Olga So Creatinine [Mass/Vol] 1.39 mg/dL Critically high 0.70-1.30 [facility] Comment on above: Performed By: #### P OCGLUC #### [facility] [address] [address] [address] Olga So EGFR-AF ETHIOPIAN >60 Normal >=60 [facility] Comment on above: Performed By: #### P OCGLUC #### [facility] [address] [address] [address] Olga So EGFR-NON AF ETHIOPIAN 51 mL/min/1.73m2 Critically low >=60 [facility] Comment on above: Performed By: #### P OCGLUC #### [facility] [address] [address] [address] Olga So Globulin (S) [Mass/Vol] 4.0 g/dL Normal [facility] Comment on above: Performed By: #### P OCGLUC #### [facility] [address] [address] [address] Olga So Glucose [Mass/Vol] 136 mg/dL Critically high 74-106 [facility] Comment on above: Performed By: #### P OCGLUC #### [facility] [address] [address] [address] Olga So Potassium [Moles/Vol] 4.2 mmol/L Normal 3.5-5.1 [facility] Comment on above: Performed By: #### P OCGLUC #### [facility] [address] [address] [address] Olga So Protein [Mass/Vol] 8.0 g/dL Normal 6.4-8.2 [facility] Comment on above: Performed By: #### P OCGLUC #### [facility] [address] [address] [address] Olga So Sodium [Moles/Vol] 140 mmol/L Normal 136-145 [facility] Comment on above: Performed By: #### P OCGLUC #### [facility] [address] [address] [address] Olga So Urea nitrogen [Mass/Vol] 30.0 mg/dL Critically high 7.0-18.0 [facility] Comment on above: Performed By: #### P OCGLUC #### [facility] [address] [address] [address] Olga So Urea nitrogen/Creatinine [Mass ratio] 21.6 mg/mg Normal [facility] Comment on above: Performed By: #### P OCGLUC #### [facility] [address] [address] [address] Olga So POINT OF CARE GLUCOSEon 0 Glucose [Mass/Vol] 114 mg/dL Critically high 74-106 [facility] Comment on above: Performed By: #### P OCGLUC #### [facility] [address] [place] [address] SHOULDER LT WO CONon -2 CT SHOULDER LT WO CON EXAMINATION: CT [...] by: REILLY MARIA Date: 2022-04-23 19:53 Normal [facility] MRI SHOULDER RT WO CONon MRI SHOULDER [...] by: REILLY MARIA Date: 2022-04-23 20:10 Normal [facility] POINT OF CARE GLUCOSEon 09-2 Glucose [Mass/Vol] 129 mg/dL Critically high 74-106 [facility] Comment on above: Performed By: #### P OCGLUC ####[facility] [address] [place], [place] [address]Ga[address]. Olga So Covid-19 PCR (CVDTB)on 01-25 SARS-CoV-2 (COVID-19) RNA JULISSA+probe Ql (Unsp spec) Not detected Normal NOT DETECTED [facility] Comment on above: Result Comment: This test is not yet approved or cleared by the [place] FDA. When there are no FDA-approved or cleared tests available, and other criteria are met, FDA can make tests available under an emergency access mechanism called an Emergency Use Authorization (EUA). The EUA for this test is supported by the [place] of Health and Human Service's (HHS's) declaration [...] SARS-CoV-2. Performed By: #### P OCGLUC #### [facility] [address] [place], [place] [address] Dr. Olga So No Panel Informationon 12-06 Radiology Study observation (narrative) [facility] Work Phone: [facility] Work Phone: XR RIBS LEFT INCLUDE CHEST ( MIN [...] by: Bret Bae 12/06/21 Final result Normal [facility] Minimally displaced fracture of the proximal left humerus [facility] EXAMINATION: XRAY VIEWS OF [...] airspace infiltrate. No pneumothorax or pleural effusion. [facility] Bret Bae - 12/06/2021 [...] displaced fracture of the proximal left humerus ALEYDA [facility] Work Phone: XR SHOULDER LEFT (MIN 2 VIEW [...] by: Bret Bae 12/06/21 Final result Normal [facility] Minimally displaced fracture of the proximal humerus at the level of the distal portion of the humeral prosthesis. [facility] EXAMINATION: XRAY VIEWS OF THE LEFT SHOULDER 12/06/2021 2:13 pm COMPARISON: None. HISTORY: ORDERING SYSTEM PROVIDED HISTORY: pain TECHNOLOGIST PROVIDED HISTORY: pain FINDINGS: The patient has undergone left shoulder arthroplasty. There is a minimally displaced fracture of the proximal humerus at the level of the distal portion of the humerus prosthesis. Bret Smith P - 12/06/2021 EXAMINATION: XRAY VIEWS OF THE [...] the distal portion of the humeral prosthesis. [facility] Work Phone: POINT OF CARE GLUCOSEon 10-25 Glucose [Mass/Vol] 132 mg/dL Critically high 74-106 [facility] Comment on above: Performed By: #### P OCGLUC #### [facility] [address] [address] [address] Olga So Basic Metabolic Panelon 08-25 Anion gap [Moles/Vol] 12 mmol/L 9 - 17 mmol/L [facility] Calcium [Mass/Vol] 8.0 mg/dL Low 8.6 - 10. 4 mg/dL [facility] Chloride [Moles/Vol] 107 mmol/L 98 - 10 7 mmol/L [facility] CO2 [Moles/Vol] 22 mmol/L 20 - 31 mmol/L [facility] Creatinine [Mass/Vol] 1.16 mg/dL 0.70 - 1.20 mg/dL [facility] GFR >60 >60 mL/min [facility] GFR Non- >60 >60 mL/min [facility] Glucose [Mass/Vol] 171 mg/dL High 70 - 99 mg/dL [facility] Potassium [Moles/Vol] 4.0 mmol/L 3.7 - 5.3 mmol/L [facility] Sodium [Moles/Vol] 141 mmol/L 135 - 144 mmol/L [facility] Urea nitrogen (BldV) [Mass/Vol] 14 mg/dL 8 - 23 mg/dL [facility] Urea nitrogen/Creatinine (Bld) [Mass ratio] 12 [facility] Basic Metabolic Profon 09-06 (cont.) Normal [facility] Comment on above: Result Comment: Aver age GFR for 60-69 years old: 85 mL/min/1.73sq m Chronic Kidney Disease: <60 mL/min/1.73sq m Kidney failure: <15 mL/min/1.73sq m eGFR calculated using average adult body mass. Additional eGFR calculator available at: http://www.[employer]/multiple_crcl_2012.htm Performed By: #### B HYUN, HH #### [facility] [address] [place] [address] Vending Machine Refiller: Ramona Hurd MD Anion gap [Moles/Vol] 12 mmol/L Normal 9-17 [facility] Comment on above: Performed By: #### Renee PURVIS, HH #### [facility] [address] [place] [address] Vending Machine Refiller: Ramona Hurd MD BUN/CRE Ratio 12 Normal 9-20 [facility] Comment on above: Performed By: #### Renee PURVIS, HH #### [facility] [address] [place] [address] Vending Machine Refiller: Ramona Hurd MD Calcium [Mass/Vol] 8.0 mg/dL Low 8.6-10.4 [facility] Comment on above: Performed By: #### Renee PURVIS, HH #### [facility] [address] [place] [address] Vending Machine Refiller: Ramona Hurd MD Chloride [Moles/Vol] 107 mmol/L Normal 98-107 [facility] Comment on above: Performed By: #### Renee PURVIS, HH #### [facility] [address] [place] [address] Vending Machine Refiller: Ramona Hurd MD CO2 [Moles/Vol] 22 mmol/L Normal 20-31 [place] Comment on above: Performed By: #### B MP, HH #### [facility] [address] [place], [place] [id number] Vending Machine Refiller: Ramona Hurd MD Creatinine [Mass/Vol] 1.16 mg/dL Normal 0.70-1.20 [facility] Comment on above: Performed By: #### B MP, HH #### [facility] [address] [place], [place] [id number] [employer]ending Machine Refiller: Ramona Hurd MD GFR, Amer >60 Normal >60 [facility] Comment on above: Performed By: #### B MP, HH #### [facility] [address] [place], [place] [id number] [employer]ending Machine Refiller: Ramona Hurd MD GFR,non Amer >60 Normal >60 [facility] Comment on above: Performed By: #### B HYUN, HH #### [facility] [address] [place], [place] [id number] Vending Machine Refiller: Ramona Hurd MD Glucose [Mass/Vol] 171 mg/dL High 70-99 [facility] Comment on above: Performed By: #### B MP, HH #### [facility] [address] [place] [address] Vending Machine Refiller: Ramona Hurd MD Potassium [Moles/Vol] 4.0 mmol/L Normal 3.7-5.3 [facility] Comment on above: Performed By: #### B MP, HH #### [facility] [address] [place], [place] [phone] Vending Machine Refiller: Ramona Hurd MD Sodium [Moles/Vol] 141 mmol/L Normal 135-144 [facility] Comment on above: Performed By: #### B MP, HH #### [facility] [address] [place], [place] [phone] Vending Machine Refiller: Ramona Hurd MD Staging: Normal [facility] Comment on above: Result Comment: Stag e 1: Some kidney damage normal GFR Stage 2: Mild kidney damage GFR 60-89 Stage 3: Moderate kidney damage GFR 30-59 Stage 4: Severe kidney damage GFR 15-29 Stage 5: Severe kidney damage GFR <15 ESRD - chronic treatment by dialysis or transplant Performed By: #### B HYUN, KALIN #### [facility] [address] [place] [address] Vending Machine Refiller: Ramona Hurd MD Urea nitrogen [Mass/Vol] 14 mg/dL Normal 8-23 [facility] Comment on above: Performed By: #### B HYUN, KALIN #### [facility] [address] [place] [address] Vending Machine Refiller: Ramona Hurd MD Glucose, Whole Bloodon 09-06 Glucose [Mass/Vol] 156 mg/dL High 74 - 100 mg/dL [facility] Glucose [Mass/Vol] 172 mg/dL High 74 - 100 mg/dL [facility] Interpretation and review of laboratory results Abnormal [facility] Interpretation and review of laboratory results Abnormal [facility] Hemoglobin and Hematocriton 09-06-2021 Hematocrit (Bld) [Volume fraction] 27.9 % Low 40.7 - 50.3 % [facility] Hemoglobin.gastrointes tinal spec 1 Ql (Stl) 8.9 g/dL Low 13.0 - 17.0 g/dL [facility] Hgb/Hcton 09-06-2021 Hematocrit (Bld) [Volume fraction] 27.9 % Low 40.7-50.3 [facility] Comment on above: Performed By: #### B HYUN, HH #### [facility] [address] [place] [address] Vending Machine Refiller: Ramona Hurd MD Hemoglobin (Bld) [Mass/Vol] 8.9 g/dL Low 13.0-17.0 [facility] Comment on above: Performed By: #### B HYUN, #### [facility] [address] [place] [address] Vending Machine Refiller: Ramona Hurd MD Laboratory - Chemistry and C hemistry - challengeon 09-06-2021 GFR/1.73 sq M.predicted MDRD (S/P/Bld) [Vol rate/Area] [facility] Comment on above: Average GFR for 60-6 9 years old: 85 mL/min/1.73sq m Chronic Kidney Disease: <60 mL/min/1.73sq m Kidney failure: <15 mL/min/1.73sq m eGFR calculated using average adult body mass. Additional eGFR calculator available at: http://www.[employer]/multiple_crcl_2012.htm Stage 1: Some kidney damage normal GFR Stage 2: Mild kidney damage GFR 60-89 Stage 3: Moderate kidney damage GFR 30-59 Stage 4: Severe kidney damage GFR 15-29 Stage 5: Severe kidney damage GFR <15 ESRD - chronic treatment by dialysis or transplant No Panel Informationon 09-06 Interpretation and review of laboratory results Abnormal [facility] VL DUP LOWER EXTREMITY VENOU S RIGHTon 09-06-2021 Radiology Study observation (narrative) [facility] Work Phone: Tad Mack MD - 09/06/2021 [facility] Vascular Lower Extremities DVT Study Procedure Patient Name GERONIMO Koroma Date of Study 09/06/2021 Date of 1955 Gender Male Age 66 year(s) Race Room Number 0302 Corporate ID [id number] # Patient Acct [id number] # MR # [id number] Php Lamp Developer Zunilda Morales RVT Interpreting Physician Tad Mack Referring Shmuel Wyatt, Referring Physician Nurse CARE DIRECTOR RN-MILITARY EXCHANGE WIRELESS MANAGER Practitioner Additional Comments Results were faxed to [...] !Phasic! ! ! + --------+------+---- --+ + [employer] Phone: VL DUP LOWER EXTREMITY VENOU S RIGHTOrdered By: Tad Mack on 09-06-2021 [employer] Phone: Glucose, Whole Bloodon 09-05 Glucose [Mass/Vol] 127 mg/dL High 74 - 100 mg/dL [facility] Glucose [Mass/Vol] 204 mg/dL High 74 - 100 mg/dL [facility] Glucose [Mass/Vol] 199 mg/dL High 74 - 100 mg/dL [facility] Interpretation and review of laboratory results Abnormal [facility] Interpretation and review of laboratory results Abnormal [facility] Interpretation and review of laboratory results Abnormal [employer] XR SHOULDER LEFT 1 VWon 08-25 Radiology Study observation (narrative) [employer] Phone: XR SHOULDER LEFT 1 VW EXAMINATION: ONE [...] Luc Michele MD 09/05/21 Final result Normal [facility] 1. Postoperative changes related to recent reverse left shoulder arthroplasty hardware placement. 2. Left basilar airspace disease and small left-sided pleural effusion. [facility] EXAMINATION: ONE XRAY VIEW [...] airspace disease and small left-sided pleural effusion. [facility] Luc Michele MD - [...] airspace disease and small left-sided pleural effusion. [facility] Work Phone: XR SHOULDER LEFT 1 VWOrdered By: Luc Michele on 09-05-2021 [employer] Phone: Glucose, Whole Bloodon 08-22 Glucose [Mass/Vol] 109 mg/dL High 74 - 100 mg/dL [facility] Interpretation and review of laboratory results Abnormal [facility] Hemoglobin A1Con 08-03-2021 Glucose [Mass/Vol] 146 mg/dL Normal [facility] Comment on above: Result Comment: The ADA and AACC recommend providing the estimated average glucose result to permit better patient understanding of their HBA1c result. Performed By: #### G LYHGB #### [facility] [address] [place] [address] Vending Machine Refiller: David Ge MD #### CDP, CP #### [facility] [address] [place], [place] [phone] Vending Machine Refiller: Ramona Hurd MD HbA1c (Bld) [Mass fraction] 6.7 % High 4.0-6.0 [facility] Comment on above: Performed By: #### G LYHGB #### [facility] [address] [place] [address] Vending Machine Refiller: David Ge MD #### CDP, CP #### [facility] [address] [place] [address] [place] [address] Vending Machine Refiller: Ramona Hurd MD MRSA, DNA, Nasalon 2 MRSA, DNA, Nasal Negative Normal NEG [facility] Comment on above: Result Comment: NEGA TIVE: MRSA DNA not detected by nucleic acid amplification. Results should be used as an adjunct to nosocomial control efforts to identify patients needing enhanced precautions. The test is not intended to identify patients with staphylococcal infections. Results should not be used to guide or monitor treatment for MRSA infections. Performed By: #### M RSANO #### [facility] [address] [place] [address] Vending Machine Refiller: David Ge MD [facility] [address] [place] [address] [place] [address] Vending Machine Refiller: Ramona Hurd MD CBC with Diffon 08-02-2021 Abs. Basophil 0.05 k/uL Normal 0.00-0.20 [facility] Comment on above: Performed By: #### G LYHGB #### [address] [address] Vending Machine Refiller: David Ge MD #### CDP, CP #### [address] [place], [place] [phone] Vending Machine Refiller: Ramona Hurd MD Abs.Imm.Granulocyte 0.03 k/uL Normal 0.00-0.30 [facility] Comment on above: Performed By: #### G LYHGB #### [address] [address] Vending Machine Refiller: David Ge MD #### CDP, CP #### [address] [place] [phone] Vending Machine Refiller: Ramona Hurd MD Abs.Neutrophil (Seg) 4.11 k/uL Normal 1.50-8.10 [facility] Comment on above: Performed By: #### G LYHGB #### [address] [address] Vending Machine Refiller: David Ge MD #### CDP, CP #### [address] [place] [phone] Vending Machine Refiller: Ramona Hurd MD Basophils/100 WBC (Bld) 1 % Normal 0-2 [facility] Comment on above: Performed By: #### G LYHGB #### [address] [address] Vending Machine Refiller: David Ge MD #### CDP, CP #### [address] [place] [phone] Vending Machine Refiller: Ramona Hurd MD Eosinophils (Bld) [#/Vol] 0.36 10*3/uL Normal 0.00-0.44 [facility] Comment on above: Performed By: #### G LYHGB #### [address] [address] Vending Machine Refiller: David Ge MD #### CDP, CP #### [address] [place], [place] [phone] Vending Machine Refiller: Ramona Hurd MD Eosinophils/100 WBC (Bld) 5 % High 1-4 [facility] Comment on above: Performed By: #### G LYHGB #### [address] [address] Vending Machine Refiller: David Ge MD #### CDP, CP #### [address] [place] [address] Vending Machine Refiller: Ramona Hurd MD Erythrocyte distribution width (RBC) [Ratio] 12.6 % Normal 11.8-14.4 [facility] Comment on above: Performed By: #### G LYHGB #### [address] [address] Vending Machine Refiller: David Ge MD #### CDP, CP #### [address] [place] [address] Vending Machine Refiller: Ramona Hurd MD Hematocrit (Bld) [Volume fraction] 37.7 % Low 40.7-50.3 [facility] Comment on above: Performed By: #### G LYHGB #### [address] [address] Vending Machine Refiller: David Ge MD #### CDP, CP #### [address] [place] [address] Vending Machine Refiller: Ramona Hurd MD Hemoglobin (Bld) [Mass/Vol] 12.3 g/dL Low 13.0-17.0 [facility] Comment on above: Performed By: #### G LYHGB #### [address] [address] Vending Machine Refiller: David Ge MD #### CDP, CP #### [facility] [address] [place] [phone] Vending Machine Refiller: Ramona Hurd MD Immature granulocytes/100 WBC (Bld) 0 % Normal 0 [facility] Comment on above: Performed By: #### G LYHGB #### [address] [address] Vending Machine Refiller: David Ge MD #### CDP, CP #### [facility] [address] [place] [phone] Vending Machine Refiller: Ramona Hurd MD Lymphocytes (Bld) [#/Vol] 2.33 10*3/uL Normal 1.10-3.70 [facility] Comment on above: Performed By: #### G LYHGB #### [address] [address] Vending Machine Refiller: David Ge MD #### CDP, CP #### [facility] [address] [place] [address] [place] [address] Vending Machine Refiller: Ramona Hurd MD Lymphocytes/100 WBC (Bld) 31 % Normal 24-43 [facility] Comment on above: Performed By: #### G LYHGB #### [address] [address] Vending Machine Refiller: David Ge MD #### CDP, CP #### [facility] [address] [place] [phone] Vending Machine Refiller: Ramona Hurd MD MCH (RBC) [Entitic mass] 32.5 pg Normal 25.2-33.5 [facility] Comment on above: Performed By: #### G LYHGB #### [address] [address] Vending Machine Refiller: David Ge MD #### CDP, CP #### [facility] [address] [place], [place] [phone] Vending Machine Refiller: Ramona Hurd MD MCHC (RBC) [Mass/Vol] 32.6 g/dL Normal 28.4-34.8 [facility] Comment on above: Performed By: #### G LYHGB #### [address] [address] Vending Machine Refiller: David Ge MD #### CDP, CP #### [facility] [address] [place] [address] Vending Machine Refiller: Ramona Hurd MD MCV (RBC) [Entitic vol] 99.5 fL Normal 82.6-102.9 [facility] Comment on above: Performed By: #### G LYHGB #### [address] [address] Vending Machine Refiller: David Ge MD #### CDP, CP #### [facility] [address] [place] [address] Vending Machine Refiller: aRmona Hurd MD Monocytes (Bld) [#/Vol] 0.67 10*3/uL Normal 0.10-1.20 [facility] Comment on above: Performed By: #### G LYHGB #### [address] [address] Vending Machine Refiller: David Ge MD #### CDP, CP #### [facility] [address] [place] [address] Vending Machine Refiller: Ramona Hurd MD Monocytes/100 WBC (Bld) 9 % Normal 3-12 [facility] Comment on above: Performed By: #### G LYHGB #### [address] [address] Vending Machine Refiller: David Ge MD #### CDP, CP #### [address] [place], [place] [phone] Vending Machine Refiller: Ramona Hurd MD Neutrophil (Seg) 54 % Normal 36-65 [facility] Comment on above: Performed By: #### G LYHGB #### [address] [address] Vending Machine Refiller: David Ge MD #### CDP, CP #### [address] [place] [address] Vending Machine Refiller: Ramona Hurd MD NRBC Automated 0.0 per 100 WBC Normal 0.0 [facility] Comment on above: Performed By: #### G LYHGB #### [address] [address] Vending Machine Refiller: David Ge MD #### CDP, CP #### [address] [place] [address] Vending Machine Refiller: Ramona Hurd MD Platelet mean volume (Bld) [Entitic vol] 10.3 fL Normal 8.1-13.5 [facility] Comment on above: Performed By: #### G LYHGB #### [address] [address] Vending Machine Refiller: David Ge MD #### CDP, CP #### [address] [place] [address] Vending Machine Refiller: Ramona Hurd MD Platelets (Bld) [#/Vol] 220 10*3/uL Normal 138-453 [facility] Comment on above: Performed By: #### G LYHGB #### [address] [address] Vending Machine Refiller: David Ge MD #### CDP, CP #### [address] [place], [place] [phone] Vending Machine Refiller: Ramona Hurd MD RBC (Bld) [#/Vol] 3.79 10*6/uL Low 4.21-5.77 [facility] Comment on above: Performed By: #### G LYHGB #### [address] [place], [place] 9707[address] Vending Machine Refiller: David Ge MD #### CDP, CP #### [address] [place], [place] [phone] Vending Machine Refiller: Ramona Hurd MD WBC (Bld) [#/Vol] 7.6 10*3/uL Normal 3.5-11.3 [facility] Comment on above: Performed By: #### G LYHGB #### [address] [place], [place] [phone] Vending Machine Refiller: David Ge MD #### CDP, CP #### [address] [place] [address] Vending Machine Refiller: Ramona Hurd MD Comp Metabolic Profon 2021 (cont.) [facility] Comment on above: Result Comment: Aver age GFR for 60-69 years old: 85 mL/min/1.73sq m Chronic Kidney Disease: <60 mL/min/1.73sq m Kidney failure: <15 mL/min/1.73sq m eGFR calculated using average adult body mass. Additional eGFR calculator available at: http://www.[employer]/multiple_crcl_2012.htm Performed By: #### G LYHGB #### [address] [place], [place] [id number] Vending Machine Refiller: David Ge MD #### CDP, CP #### [address] [place] [address] Vending Machine Refiller: Ramona Hurd MD Albumin [Mass/Vol] 4.7 g/dL Normal 3.5-5.2 [facility] Comment on above: Performed By: #### G LYHGB #### [facility] [address] [place] [address] Vending Machine Refiller: David Ge MD #### CDP, CP #### [facility] [address] [place], [place] [phone] Vending Machine Refiller: Ramona Hurd MD Albumin/Glob Ratio 1.6 Normal 1.0-2.5 [facility] Comment on above: Performed By: #### G LYHGB #### [address] [address] Vending Machine Refiller: David Ge MD #### CDP, CP #### [facility] [address] [place], [place] [phone] Vending Machine Refiller: Ramona Hurd MD Alkaline Phos 154 U/L High 40-129 [facility] Comment on above: Performed By: #### G LYHGB #### [address] [address] Vending Machine Refiller: David Ge MD #### CDP, CP #### [facility] [address] [place] [address] [place], [place] [phone] Vending Machine Refiller: Ramona Hurd MD ALT [Catalytic activity/Vol] 24 U/L Normal 5-41 [facility] Comment on above: Performed By: #### G LYHGB #### [facility] [address] [place] [address] Vending Machine Refiller: David Ge MD #### CDP, CP #### [address] [place], [place] [phone] Vending Machine Refiller: Ramona Hurd MD Anion gap [Moles/Vol] 12 mmol/L Normal 9-17 [facility] Comment on above: Performed By: #### G LYHGB #### [address] [address] Vending Machine Refiller: David Ge MD #### CDP, CP #### [facility] [address] [place] [address] Vending Machine Refiller: Ramona Hurd MD AST [Catalytic activity/Vol] 20 U/L Normal <40 [facility] Comment on above: Performed By: #### G LYHGB #### [address] [address] Vending Machine Refiller: David Ge MD #### CDP, CP #### [facility] [address] [place] [address] [place] [address] Vending Machine Refiller: Ramona Hurd MD Bilirubin [Mass/Vol] 0.30 mg/dL Normal 0.3-1.2 [facility] Comment on above: Performed By: #### G LYHGB #### [address] [address] Vending Machine Refiller: David Ge MD #### CDP, CP #### [facility] [address] [place] [address] [place] [address] Vending Machine Refiller: Ramona Hurd MD BUN/CRE Ratio 22 High 9-20 [facility] Comment on above: Performed By: #### G LYHGB #### [address] [address] Vending Machine Refiller: David Ge MD #### CDP, CP #### [facility] [address] [place] [address] [place] [address] Vending Machine Refiller: Ramona Hurd MD Calcium [Mass/Vol] 9.6 mg/dL Normal 8.6-10.4 [facility] Comment on above: Performed By: #### G LYHGB #### [address] [address] Vending Machine Refiller: David Ge MD #### CDP, CP #### [facility] [address] [place], [place] 0500683 Vending Machine Refiller: Ramona Hurd MD Chloride [Moles/Vol] 103 mmol/L Normal 98-107 [facility] Comment on above: Performed By: #### G LYHGB #### [address] [address] Vending Machine Refiller: David Ge MD #### CDP, CP #### [address] [place], [place] [phone] Vending Machine Refiller: Ramona Hurd MD CO2 [Moles/Vol] 24 mmol/L Normal 20-31 [place] Comment on above: Performed By: #### G LYHGB #### [address] [address] Vending Machine Refiller: David Ge MD #### CDP, CP #### [address] [place], [place] 1026983 Vending Machine Refiller: Ramona Hurd MD Creatinine [Mass/Vol] 1.27 mg/dL High 0.70-1.20 [facility] Comment on above: Performed By: #### G LYHGB #### [address] [address] Vending Machine Refiller: David Ge MD #### CDP, CP #### [address] [place], [place] [phone] Vending Machine Refiller: Ramona Hurd MD GFR, Amer >60 Normal >60 [facility] Comment on above: Performed By: #### G LYHGB #### [address] [address] Vending Machine Refiller: David Ge MD #### CDP, CP #### [address] [place], [place] [phone] Vending Machine Refiller: Ramona Hurd MD GFR,non Amer 57 mL/min Low >60 [facility] Comment on above: Performed By: #### G LYHGB #### [address] [place] [address] Vending Machine Refiller: David Ge MD #### CDP, CP #### [facility] [address] [place], [place] [phone] Vending Machine Refiller: Ramona Hurd MD Glucose [Mass/Vol] 155 mg/dL High 70-99 [facility] Comment on above: Performed By: #### G LYHGB #### [address] [address] Vending Machine Refiller: David Ge MD #### CDP, CP #### [address] [place] [phone] Vending Machine Refiller: Ramona Hurd MD Potassium [Moles/Vol] 4.9 mmol/L Normal 3.7-5.3 [facility] Comment on above: Performed By: #### G LYHGB #### [address] [address] Vending Machine Refiller: David Ge MD #### CDP, CP #### [address] [place] [phone] Vending Machine Refiller: Ramona Hurd MD Protein [Mass/Vol] 7.6 g/dL Normal 6.4-8.3 [facility] Comment on above: Performed By: #### G LYHGB #### [address] [address] Vending Machine Refiller: David Ge MD #### CDP, CP #### [facility] [address] [place] [address] [place], [place] [phone] Vending Machine Refiller: Ramona Hurd MD Sodium [Moles/Vol] 139 mmol/L Normal 135-144 [facility] Comment on above: Performed By: #### G LYHGB #### [facility] [address] [place] [address] Vending Machine Refiller: David Ge MD #### CDP, CP #### [address] [place], [place] [phone] Vending Machine Refiller: Ramona Hurd MD Staging: Normal [facility] Comment on above: Result Comment: Stag e 1: Some kidney damage normal GFR Stage 2: Mild kidney damage GFR 60-89 Stage 3: Moderate kidney damage GFR 30-59 Stage 4: Severe kidney damage GFR 15-29 Stage 5: Severe kidney damage GFR <15 ESRD - chronic treatment by dialysis or transplant Performed By: #### G LYHGB #### [address] [address] Vending Machine Refiller: David Ge MD #### CDP, CP #### [address] [place], [place] [phone] Vending Machine Refiller: Ramona Hurd MD Urea nitrogen [Mass/Vol] 28 mg/dL High 8-23 [facility] Comment on above: Performed By: #### G LYHGB #### [facility] [address] [place] [address] Vending Machine Refiller: David Ge MD #### CDP, CP #### [address] [place], [place] [phone] Vending Machine Refiller: Ramona Hurd MD MRSA, DNA, Nasalon Specimen Description .NASAL SWAB Normal [facility] Comment on above: Performed By: #### M RSANO #### [address] [address] Vending Machine Refiller: David Ge MD [address] [place], [place] [phone] Vending Machine Refiller: Ramona Hurd MD XR CHEST (2 VW)on 08-02-2021 Radiology Study observation (narrative) [employer] Phone: XR CHEST (2 VW) EXAMINATION: TWO XRAY [...] by: Bret Bae 08/02/21 Final result Normal [facility] No acute cardiopulmonary findings. [facility] EXAMINATION: TWO XRAY VIEWS OF THE CHEST 08/02/2021 1:05 pm COMPARISON: None. HISTORY: ORDERING SYSTEM PROVIDED HISTORY: pre-op TECHNOLOGIST PROVIDED HISTORY: pre-op FINDINGS: No acute airspace infiltrate. No pneumothorax or pleural effusion. The cardiomediastinal silhouette is within normal limits. Vertebroplasty changes in the thoracic spine. [facility] Bret Bae - 08/02/2021 EXAMINATION: TWO XRAY VIEWS OF THE CHEST 08/02/2021 1:05 pm COMPARISON: None. HISTORY: ORDERING SYSTEM PROVIDED HISTORY: pre-op TECHNOLOGIST PROVIDED HISTORY: pre-op FINDINGS: No acute airspace infiltrate. No pneumothorax or pleural effusion. The cardiomediastinal silhouette is within normal limits. Vertebroplasty changes in the thoracic spine. IMPRESSION: No acute cardiopulmonary findings. [employer] Phone: XR CHEST (2 VW)Ordered By: Marvin Bae on 08-02-2021 [employer] Phone: CBCOrdered By: Adjondi Born on 12-08-2020 Hematocrit (Bld) [Volume fraction] 27.4 % Low 42.0 - 52.0 % [employer] Phone: Hemoglobin.gastrointes tinal spec 1 Ql (Stl) 9.1 g/dL Low 14.0 - 18.0 g/dL [employer] Phone: MCH (RBC) [Entitic mass] 32.7 pg High 27.0 - 31.3 pg [employer] Phone: MCHC (RBC) [Mass/Vol] 33.2 % 33.0 - 37.0 % [employer] Phone: MCV (RBC) [Entitic vol] 98.3 fL 80.0 - 100.0 fL [employer] Phone: Platelet distribution width (Bld) [Ratio] 13.2 % 11.5 - 14.5 % [employer] Phone: Platelets (Bld) [#/Vol] 173 10*3/uL 130 - 400 K/uL [employer] Phone: RBC (Bld) [#/Vol] 2.78 10*6/uL Low [employer] Phone: WBC (Bld) [#/Vol] 12.7 10*3/uL High 4.8 - 10.8 K/uL [facility] Phone: CBC With Platelet No Differe ntialon 12-08-2020 Erythrocyte distribution width (RBC) [Ratio] 13.2 % Normal 11.5-14.5 [facility] Comment on above: Performed By: #### P GLU #### [facility] [address] [place] [address] Hematocrit (Bld) [Volume fraction] 27.4 % Low 42.0-52.0 [facility] Comment on above: Performed By: #### P GLU #### [facility] [address] [place] [address] Hemoglobin (Bld) [Mass/Vol] 9.1 g/dL Low 14.0-18.0 [facility] Comment on above: Performed By: #### P GLU #### [facility] [address] [place] [address] MCH (RBC) [Entitic mass] 32.7 pg Critically high 27.0-31.3 [facility] Comment on above: Performed By: #### P GLU #### [facility] [address] [place] [address] MCHC 33.2 % Normal 33.0-37.0 [facility] Comment on above: Performed By: #### P GLU #### [facility] [address] [place] [address] MCV (RBC) [Entitic vol] 98.3 fL Normal 80.0-100.0 [facility] Comment on above: Performed By: #### P GLU #### [facility] [address] [place] [address] Platelets (Bld) [#/Vol] 173 10*3/uL Normal 130-400 [facility] Comment on above: Performed By: #### P GLU #### [facility] [address] [place] [address] RBC (Bld) [#/Vol] 2.78 10*6/uL Low 4.70-6.10 [facility] Comment on above: Performed By: #### P GLU #### [facility] [address] [place] [address] WBC (Bld) [#/Vol] 12.7 10*3/uL Critically high 4.8-10.8 [facility] Comment on above: Performed By: #### P GLU #### [facility] [address] [place] [address] No Panel InformationOrdered By: Unknown Result on 12-08-2020 Interpretation and review of laboratory results Abnormal [employer] Phone: [employer] Phone: POCT GlucoseOrdered By: Unkn own Result on 12-08-2020 Glucose [Mass/Vol] 150 mg/dL High 60 - 115 mg/dl [employer] Phone: Glucose [Mass/Vol] 119 mg/dL High 60 - 115 mg/dl [facility] Phone: Glucose [Mass/Vol] 145 mg/dL High 60 - 115 mg/dl [employer] Phone: Interpretation and review of laboratory results Abnormal [employer] Phone: Interpretation and review of laboratory results Abnormal [employer] Phone: Performed on ACCU-CHEK [employer] Phone: Performed on ACCU-CHEK [employer] Phone: Comment on above: Notified RN or MD Performed on ACCU-CHEK [employer] Phone: Comment on above: Notified RN or MD [employer] Phone: [employer] Phone: POCT Glucoseon 12-08-2020 Glucose [Mass/Vol] 150 mg/dL Critically high 60-115 M [facility] Comment on above: Performed By: #### P GLU #### [facility] [address] [place] [address] Glucose [Mass/Vol] 119 mg/dL Critically high 60-115 M [facility] Comment on above: Performed By: #### P GLU #### [facility] [address] [place] [address] Glucose [Mass/Vol] 145 mg/dL Critically high 60-115 M [facility] Comment on above: Performed By: #### P GLU #### [facility] [address] [place] [address] POC Performed on ACCU-CHEK Normal [facility] Comment on above: Performed By: #### P GLU #### [facility] [address] [place] [address] POC Performed on ACCU-CHEK Normal [facility] Comment on above: Result Comment: Noti denice RN or Performed By: #### P GLU #### [facility] [address] [place] [address] POC Performed on ACCU-CHEK Normal [facility] Comment on above: Result Comment: Trev galdamez RN or MD Performed By: #### P GLU #### [facility] [address] [place] [id number] Surgical PathologyOrdered By : Hernandez Tovar on 12-08-2020 [facility] [address], [place] [id number] FINAL SURGICAL PATHOLOGY REPORT Patient Name: DEONDRE LR Accession No: [id number] Age Sex: 1955 Location: [place] [id number] Account No: [id number] Collected: 12/06/2020 [facility] Rec No: [id number] Received: 12/06/2020 Attend Phys: HERNANDEZ TOVAR Completed: [...] in two cassettes following decalcification. NORA CPT: 84478 X1 04877 X1 MAIA DUGAN M.D. 12/08/2020 Electronically signed out by Page 1 of 1 [facility] Work Phone: Basic Metabolic Panel Reflex Mgon 12-07-2020 Anion gap [Moles/Vol] 11 mmol/L Normal 9-15 [facility] Comment on above: Performed By: #### B MPX #### [facility] [address] [place] [id number] Calcium [Mass/Vol] 8.6 mg/dL Normal 8.5-9.9 [facility] Comment on above: Performed By: #### B MPX #### [facility] [address] [place] [address] Chloride [Moles/Vol] 102 mmol/L Normal 95-107 [facility] Comment on above: Performed By: #### B MPX #### [facility] [address] [place] [address] CO2 [Moles/Vol] 25 mmol/L Normal 20-31 [facility] Comment on above: Performed By: #### B MPX #### [facility] [address] [place] [address] Creatinine [Mass/Vol] 1.15 mg/dL Normal 0.70-1.20 [facility] Comment on above: Performed By: #### B MPX #### [facility] [address] [place] [address] GFR >60.0 Normal >60 [facility] Comment on above: Result Comment: >60 mL/min/1.73m2 EGFR, calc. for ages 18 and older using the MDRD formula (not corrected for weight), is valid for stable renal function. Performed By: #### B MPX #### [facility] [address] [place] [address] GFR/1.73 sq M.predicted among blacks MDRD (S/P/Bld) [Vol rate/Area] mL/min/{1.73_m2} Normal >60 [facility] Comment on above: Result Comment: >60 mL/min/1.73m2 EGFR, calc. for ages 18 and older using the MDRD formula (not corrected for weight), is valid for stable renal function. Performed By: #### B MPX #### [facility] [address] [place] [address] Glucose [Mass/Vol] 160 mg/dL Critically high 70-99 M [facility] Comment on above: Performed By: #### B MPX #### [facility] [address] [place] [address] Magnesium [Moles/Vol] 4.8 mmol/L Normal 3.4-4.9 [facility] Comment on above: Performed By: #### B MPX #### [facility] [address] [place] [address] Sodium [Moles/Vol] 138 mmol/L Normal 135-144 [facility] Comment on above: Performed By: #### B MPX #### [facility] [address] [place] [address] Urea nitrogen [Mass/Vol] 18 mg/dL Normal 8-23 [facility] Comment on above: Performed By: #### B MPX #### [facility] [address] [place] [address] Basic Metabolic Panel w/ Ref rock to MGOrdered By: Hernandez Tovar on 12-07-2020 Anion gap [Moles/Vol] 11 mmol/L [facility] [employer] Work Phone: Calcium [Mass/Vol] 8.6 mg/dL 8.5 - 9.9 mg/dL [employer] Work Phone: Chloride [Moles/Vol] 102 mmol/L [facility] [employer] Work Phone: CO2 [Moles/Vol] 25 mmol/L [facility] Work Phone: Creatinine [Mass/Vol] 1.15 mg/dL 0.70 - 1.20 mg/dL [employer] Phone: GFR >60.0 >60 [employer] Work Phone: Comment on above: >60 mL/min/1.73m2 EG FR, calc. for ages 18 and older using the MDRD formula (not corrected for weight), is valid for stable renal function. GFR Non- >60.0 >60 [employer] Work Phone: Comment on above: >60 mL/min/1.73m2 EG FR, calc. for ages 18 and older using the MDRD formula (not corrected for weight), is valid for stable renal function. Glucose [Mass/Vol] 160 mg/dL High 70 - 99 mg/dL [facility] Work Phone: Potassium reflex Magnesium 4.8 [facility] [employer] Phone: Sodium [Moles/Vol] 138 mmol/L [facility] Phone: Urea nitrogen (BldV) [Mass/Vol] 18 mg/dL 8 - 23 mg/dL [facility] [employer] Phone: CBC With Platelet and Differ entialon 12-07-2020 Basophils (Bld) [#/Vol] 0.0 10*3/uL Normal 0.0-0.2 [facility] Comment on above: Performed By: #### C BCWD #### [facility] [address] [place] [address] Basophils/100 WBC (Bld) 0.1 % Normal [facility] Comment on above: Performed By: #### C BCWD #### [facility] [address] [place] [address] Eosinophils (Bld) [#/Vol] 0.0 10*3/uL Normal 0.0-0.7 [facility] Comment on above: Performed By: #### C BCWD #### [facility] [address] [place] [address] Eosinophils/100 WBC (Bld) 0.0 % Normal [facility] Comment on above: Performed By: #### C BCWD #### [facility] [address] [place] [address] Erythrocyte distribution width (RBC) [Ratio] 12.9 % Normal 11.5-14.5 [facility] Comment on above: Performed By: #### C BCWD #### [facility] [address] [place] [address] Hematocrit (Bld) [Volume fraction] 27.8 % Low 42.0-52.0 [facility] Comment on above: Performed By: #### C BCWD #### [facility] [address] [place] [address] Hemoglobin (Bld) [Mass/Vol] 9.3 g/dL Low 14.0-18.0 [facility] Comment on above: Performed By: #### C BCWD #### [facility] [address] [place] [address] Lymphocytes (Bld) [#/Vol] 1.1 10*3/uL Normal 1.0-4.8 [facility] Comment on above: Performed By: #### C BCWD #### [facility] [address] [place] [address] Lymphocytes/100 WBC (Bld) 7.7 % Normal [facility] Comment on above: Performed By: #### C BCWD #### [facility] [address] [place] [address] MCH (RBC) [Entitic mass] 32.6 pg Critically high 27.0-31.3 [facility] Comment on above: Performed By: #### C BCWD #### [facility] [address] [place] [address] MCHC 33.3 % Normal 33.0-37.0 [facility] Comment on above: Performed By: #### C BCWD #### [facility] [address] [place] [address] MCV (RBC) [Entitic vol] 97.8 fL Normal 80.0-100.0 [facility] Comment on above: Performed By: #### C BCWD #### [facility] [address] [place] [address] Monocytes (Bld) [#/Vol] 1.5 10*3/uL Critically high 0.2-0.8 [facility] Comment on above: Performed By: #### C BCWD #### [facility] [address] [place] [address] Monocytes/100 WBC (Bld) 10.1 % Normal [facility] Comment on above: Performed By: #### C BCWD #### [facility] [address] [place] [address] Neutrophils (Bld) [#/Vol] 11.8 10*3/uL Critically high 1.4-6.5 [facility] Comment on above: Performed By: #### C BCWD #### [facility] [address] [place] [address] Neutrophils/100 WBC (Bld) 82.1 % Normal [facility] Comment on above: Performed By: #### C BCWD #### [facility] [address] [place] [address] Platelets (Bld) [#/Vol] 183 10*3/uL Normal 130-400 [facility] Comment on above: Performed By: #### C BCWD #### [facility] [address] [place] [address] RBC (Bld) [#/Vol] 2.84 10*6/uL Low 4.70-6.10 [facility] Comment on above: Performed By: #### C BCWD #### [facility] [address] [place] [address] WBC (Bld) [#/Vol] 14.3 10*3/uL Critically high 4.8-10.8 [facility] Comment on above: Performed By: #### C BCWD #### [facility] [address] [place] [address] CBC auto differentialOrdered By: Hernandez Tovar on 12-07-2020 Basophils (Bld) [#/Vol] 0.0 10*3/uL 0.0 - 0.2 K/uL [employer] Work Phone: Basophils/100 WBC (Bld) 0.1 % [employer] Phone: Eosinophils (Bld) [#/Vol] 0.0 10*3/uL 0.0 - 0.7 K/uL [employer] Phone: Eosinophils/100 WBC (Bld) 0 % [employer] Phone: Hematocrit (Bld) [Volume fraction] 27.8 % Low 42.0 - 52.0 % [employer] Phone: Hemoglobin.gastrointes tinal spec 1 Ql (Stl) 9.3 g/dL Low 14.0 - 18.0 g/dL [employer] Phone: Lymphocytes (Bld) [#/Vol] 1.1 10*3/uL 1.0 - 4.8 K/uL [employer] Phone: Lymphocytes/100 WBC (Bld) 7.7 % [employer] Phone: MCH (RBC) [Entitic mass] 32.6 pg High 27.0 - 31.3 pg [employer] Phone: MCHC (RBC) [Mass/Vol] 33.3 % 33.0 - 37.0 % [employer] Phone: MCV (RBC) [Entitic vol] 97.8 fL 80.0 - 100.0 fL [employer] Phone: Monocytes (Bld) [#/Vol] 1.5 10*3/uL High 0.2 - 0.8 K/uL [employer] Phone: Monocytes/100 WBC (Bld) 10.1 % [employer] Phone: Neutrophils Absolute 11.8 K/uL High 1.4 - 6 .5 K/uL [employer] Phone: Neutrophils/100 WBC (Bld) 82.1 % [employer] Phone: Platelet distribution width (Bld) [Ratio] 12.9 % 11.5 - 14.5 % [employer] Phone: Platelets (Bld) [#/Vol] 183 10*3/uL 130 - 400 K/uL [employer] Phone: RBC (Bld) [#/Vol] 2.84 10*6/uL Low [employer] Phone: WBC (Bld) [#/Vol] 14.3 10*3/uL High 4.8 - 10.8 K/uL [employer] Phone: FLUORO FOR SURGICAL PROCEDUR ESOrdered By: Hernandez Tovar on 12-07-2020 Moses, Chpo Incoming Radiant Results From [employer] - 12/07/2020 1:12 PM EDT FLUORO FOR SURGICAL PROCEDURES : 12/06/2020 10:30 AM CLINICAL HISTORY: R52 Pain ICD10. COMPARISON: None available. Intraoperative fluoroscopy was provided for Dr. Tovar procedure. A total of 71.7 seconds of fluoroscopy was used, with 4 fluoroscopic stills saved. No diagnostic images were obtained. Please see Dr. Tovar surgical notes for completeness. [employer] Phone: [employer] Phone: No Panel InformationOrdered By: Hernandez Tovar on 12-07-2020 Interpretation and review of laboratory results Abnormal [employer] Phone: [employer] Phone: POCT GlucoseOrdered By: Unkn own Result on 12-07-2020 Glucose [Mass/Vol] 178 mg/dL High 60 - 115 mg/dl [employer] Phone: Glucose [Mass/Vol] 272 mg/dL High 60 - 115 mg/dl [employer] Phone: Glucose [Mass/Vol] 152 mg/dL High 60 - 115 mg/dl [employer] Phone: Glucose [Mass/Vol] 143 mg/dL High 60 - 115 mg/dl [employer] Phone: Interpretation and review of laboratory results Abnormal [employer] Phone: Interpretation and review of laboratory results Abnormal [employer] Phone: Interpretation and review of laboratory results Abnormal [employer] Phone: Performed on ACCU-CHEK [employer] Phone: Performed on ACCU-CHEK [employer] Phone: Performed on ACCU-CHEK [employer] Phone: Performed on ACCU-CHEK [employer] Phone: [employer] Phone: [employer] Phone: [employer] Phone: POCT Glucoseon 12-07-2020 Glucose [Mass/Vol] 178 mg/dL Critically high 60-115 [facility] Comment on above: Performed By: #### P GLU #### [facility] [address] [place] [address] Glucose [Mass/Vol] 272 mg/dL Critically high 60-115 [facility] Comment on above: Performed By: #### P GLU #### [facility] [address] [place] [address] Glucose [Mass/Vol] 152 mg/dL Critically high 60-115 [facility] Comment on above: Performed By: #### P GLU #### [facility] [address] [place] [address] Glucose [Mass/Vol] 143 mg/dL Critically high 60-115 [facility] Comment on above: Performed By: #### P GLU #### [facility] [address] [place] [address] POC Performed on ACCU-CHEK Normal [facility] Comment on above: Performed By: #### P GLU #### [facility] [address] [place] [address] POC Performed on ACCU-CHEK Normal [facility] Comment on above: Performed By: #### P GLU #### [facility] [address] [place] [address] POC Performed on ACCU-CHEK Normal [facility] Comment on above: Performed By: #### P GLU #### [facility] [address] [place] [address] POC Performed on ACCU-CHEK Normal [facility] Comment on above: Performed By: #### P GLU #### [facility] [address] [place] [address] XR LUMBAR SPINE (2-3 VIEWS)o n 12-07-2020 [...] Liban Solis MD 12/07/20 Final result Normal [facility] XR LUMBAR SPINE (2-3 VIEWS)O rdered By: Hernandez Tovar on 12-07-2020 Interval postoperative changes of L3-L4 posterior laminectomy and stable L4-S1 posterior fusion, with intact hardware. [employer] Work Phone: TECHNIQUE: AP AND LATERAL VIEWS OF [...] imaged femoral joints. SI joints are unremarkable. [employer] Phone: Geetha Lopes Incoming Radiant Results From [employer] - 12/07/2020 11:21 AM EDT TECHNIQUE: AP [...] stable L4-S1 posterior fusion, with intact hardware. [employer] Phone: [employer] Phone: Basic Metabolic Panel Reflex Mgon 12-06-2020 Anion gap [Moles/Vol] 10 mmol/L Normal 9-15 [facility] Comment on above: Performed By: #### B MPX #### [facility] [address] [place] [address] Calcium [Mass/Vol] 8.2 mg/dL Low 8.5-9.9 [facility] Comment on above: Performed By: #### B MPX #### [facility] [address] [place] [address] Chloride [Moles/Vol] 102 mmol/L Normal 95-107 [facility] Comment on above: Performed By: #### B MPX #### [facility] [address] [place] [address] CO2 [Moles/Vol] 25 mmol/L Normal 20-31 [facility] Comment on above: Performed By: #### B MPX #### [facility] [address] [place] [address] Creatinine [Mass/Vol] 1.18 mg/dL Normal 0.70-1.20 [facility] Comment on above: Performed By: #### B MPX #### [facility] [address] [place] [address] GFR >60.0 Normal >60 [facility] Comment on above: Result Comment: >60 mL/min/1.73m2 EGFR, calc. for ages 18 and older using the MDRD formula (not corrected for weight), is valid for stable renal function. Performed By: #### B MPX #### [facility] [address] [place] [address] GFR/1.73 sq M.predicted among blacks MDRD (S/P/Bld) [Vol rate/Area] mL/min/{1.73_m2} Normal >60 [facility] Comment on above: Result Comment: >60 mL/min/1.73m2 EGFR, calc. for ages 18 and older using the MDRD formula (not corrected for weight), is valid for stable renal function. Performed By: #### B MPX #### [facility] [address] [place] [address] Glucose [Mass/Vol] 197 mg/dL Critically high 70-99 M [facility] Comment on above: Performed By: #### B MPX #### [facility] [address] [place] [address] Magnesium [Moles/Vol] 4.1 mmol/L Normal 3.4-4.9 [facility] Comment on above: Performed By: #### B MPX #### [facility] [address] [place] [address] Sodium [Moles/Vol] 137 mmol/L Normal 135-144 [facility] Comment on above: Performed By: #### B MPX #### [facility] [address] [place] [address] Urea nitrogen [Mass/Vol] 19 mg/dL Normal 8-23 [facility] Comment on above: Performed By: #### B MPX #### [facility] [address] [place] [address] Basic Metabolic Panel w/ Ref rock to MGOrdered By: Hernandez Tovar on 12-06-2020 Anion gap [Moles/Vol] 10 mmol/L [facility] [employer] Work Phone: Calcium [Mass/Vol] 8.2 mg/dL Low 8.5 - 9.9 mg/dL [facility] [employer] Work Phone: Chloride [Moles/Vol] 102 mmol/L [facility] [employer] Work Phone: CO2 [Moles/Vol] 25 mmol/L [facility] Work Phone: Creatinine [Mass/Vol] 1.18 mg/dL 0.70 - 1.20 mg/dL [facility] [employer] Work Phone: GFR >60.0 >60 [facility] [employer] Work Phone: Comment on above: >60 mL/min/1.73m2 EG FR, calc. for ages 18 and older using the MDRD formula (not corrected for weight), is valid for stable renal function. GFR Non- >60.0 >60 [employer] Phone: Comment on above: >60 mL/min/1.73m2 EG FR, calc. for ages 18 and older using the MDRD formula (not corrected for weight), is valid for stable renal function. Glucose [Mass/Vol] 197 mg/dL High 70 - 99 mg/dL [employer] Phone: Potassium reflex Magnesium 4.1 [employer] Phone: Sodium [Moles/Vol] 137 mmol/L [employer] Phone: Urea nitrogen (BldV) [Mass/Vol] 19 mg/dL 8 - 23 mg/dL [employer] Phone: CBC With Platelet No Differe ntialon 12-06-2020 Erythrocyte distribution width (RBC) [Ratio] 13.1 % Normal 11.5-14.5 [facility] Comment on above: Performed By: #### C BCND #### [facility] [address] [place] [address] Hematocrit (Bld) [Volume fraction] 30.4 % Low 42.0-52.0 [facility] Comment on above: Performed By: #### C BCND #### [facility] [address] [place] [address] Hemoglobin (Bld) [Mass/Vol] 10.0 g/dL Low 14.0-18.0 [facility] Comment on above: Performed By: #### C BCND #### [facility] [address] [place] [address] MCH (RBC) [Entitic mass] 32.6 pg Critically high 27.0-31.3 [facility] Comment on above: Performed By: #### C BCND #### [facility] [address] [place] [address] MCHC 32.9 % Low 33.0-37.0 [facility] Comment on above: Performed By: #### C BCND #### [facility] [address] [place] [address] MCV (RBC) [Entitic vol] 99.0 fL Normal 80.0-100.0 [facility] Comment on above: Performed By: #### C BCND #### [facility] [address] [place] [address] Platelets (Bld) [#/Vol] 161 10*3/uL Normal 130-400 [facility] Comment on above: Performed By: #### C BCND #### [facility] [address] [place] [address] RBC (Bld) [#/Vol] 3.07 10*6/uL Low 4.70-6.10 [facility] Comment on above: Performed By: #### C BCND #### [facility] [address] [place] [address] WBC (Bld) [#/Vol] 8.4 10*3/uL Normal 4.8-10.8 [facility] Comment on above: Performed By: #### C BCND #### [facility] [address] [place] [address] CBC without DiffOrdered By: Hernandez Tovar on 12-06-2020 Hematocrit (Bld) [Volume fraction] 30.4 % Low 42.0 - 52.0 % [facility] Work Phone: Hemoglobin.gastrointes tinal spec 1 Ql (Stl) 10.0 g/dL Low 14.0 - 18.0 g/dL [employer] Phone: MCH (RBC) [Entitic mass] 32.6 pg High 27.0 - 31.3 pg [employer] Phone: MCHC (RBC) [Mass/Vol] 32.9 % Low 33.0 - 37.0 % [employer] Phone: MCV (RBC) [Entitic vol] 99.0 fL 80.0 - 100.0 fL [employer] Phone: Platelet distribution width (Bld) [Ratio] 13.1 % 11.5 - 14.5 % [employer] Phone: Platelets (Bld) [#/Vol] 161 10*3/uL 130 - 400 K/uL [employer] Phone: RBC (Bld) [#/Vol] 3.07 10*6/uL Low [employer] Phone: WBC (Bld) [#/Vol] 8.4 10*3/uL 4.8 - 10.8 K/uL [employer] Phone: No Panel InformationOrdered By: Hernandez Tovar on 12-06-2020 Interpretation and review of laboratory results Abnormal [employer] Phone: [employer] Phone: No Panel InformationOrdered By: Unknown Result on 12-06-2020 Performed on ACCU-CHEK [employer] Phone: POCT GlucoseOrdered By: Unkn own Result on 12-06-2020 Glucose [Mass/Vol] 171 mg/dL Critically high 60-115 [facility] Phone: Comment on above: Performed By: #### P GLU #### [facility] [address] [place] [address] Glucose [Mass/Vol] 189 mg/dL High 60 - 115 mg/dl [employer] Phone: Glucose [Mass/Vol] 210 mg/dL High 60 - 115 mg/dl [employer] Phone: Glucose [Mass/Vol] 198 mg/dL High 60 - 115 mg/dl [employer] Phone: Interpretation and review of laboratory results Abnormal [employer] Phone: Interpretation and review of laboratory results Abnormal [employer] Phone: Performed on ACCU-CHEK [employer] Phone: Performed on ACCU-CHEK [employer] Work Phone: [employer] Phone: [facility] Phone: POCT Glucoseon 12-06-2020 Glucose [Mass/Vol] 189 mg/dL Critically high 60-[address] [place] [address] Comment on above: Performed By: #### P GLU #### [facility] [address] [place] [address] Glucose [Mass/Vol] 210 mg/dL Critically high -[address] [place] [address] Comment on above: Performed By: #### P GLU #### [facility] [address] [place] [address] Glucose [Mass/Vol] 198 mg/dL Critically high -[address] [place] [address] Comment on above: Performed By: #### P GLU #### [facility] [address] [place] [address] POC Performed on ACCU-CHEK Normal [facility] Comment on above: Performed By: #### P GLU #### [facility] [address] [place] [address] POC Performed on ACCU-CHEK Normal [facility] Comment on above: Performed By: #### P GLU #### [facility] [address] [place] [address] POC Performed on ACCU-CHEK Normal [facility] Comment on above: Performed By: #### P GLU #### [facility] [address] [place] [address] POC Performed on ACCU-CHEK Normal [facility] Comment on above: Performed By: #### P GLU #### [facility] [address] [place] [address] Surgical Specimenon 12-07-19 21 Surgical Specimen [facility] [address] [place], [place] [id number] FINAL SURGICAL PATHOLOGY REPORT Patient Name: DEONDRE LR Accession No: [id number] Age Sex: 1955 Location: [facility] [id number] Account No: [id number] Collected: 12/06/2020 [facility] Rec No: [id number] Received: 12/06/2020 Attend Phys: HERNANDEZ GUY Completed: 12/08/2020 Perform Phys: HERNANDEZ GUY FINAL DIAGNOSIS: DISC: DEGENERATING INTERVERTEBRAL DISC MATERIAL. [...] in two cassettes following decalcification. NORA CPT: 25049 X1 11089 X1 MAIA DUGAN M.D. 12/08/2020 Electronically signed out by Page 1 of 1 Invalid Interpretation Code [facility] Comment on above: Performed By: #### P GLU #### [facility] [address] [facility] [place] [address] Basic Metabolic Panelon 07-0 Anion gap [Moles/Vol] 10 mmol/L Normal 9-15 [facility] Comment on above: Performed By: #### B MP #### [facility] [address] [facility] [place] [address] Calcium [Mass/Vol] 9.3 mg/dL Normal 8.5-9.9 [facility] Comment on above: Performed By: #### B MP #### [facility] [address] [facility] [place] [address] Chloride [Moles/Vol] 108 mmol/L Critically high 95-107 [facility] Comment on above: Performed By: #### B MP #### [facility] [address] [place] [address] CO2 [Moles/Vol] 26 mmol/L Normal 20-31 [facility] Comment on above: Performed By: #### B MP #### [facility] [address] [place] [address] Creatinine [Mass/Vol] 1.03 mg/dL Normal 0.70-1.20 [facility] Comment on above: Performed By: #### B MP #### [facility] [address] [place] [address] GFR >60.0 Normal >60 [facility] Comment on above: Result Comment: >60 mL/min/1.73m2 EGFR, calc. for ages 18 and older using the MDRD formula (not corrected for weight), is valid for stable renal function. Performed By: #### B MP #### [facility] [address] [place] [address] GFR/1.73 sq M.predicted among blacks MDRD (S/P/Bld) [Vol rate/Area] mL/min/{1.73_m2} Normal >60 [facility] Comment on above: Result Comment: >60 mL/min/1.73m2 EGFR, calc. for ages 18 and older using the MDRD formula (not corrected for weight), is valid for stable renal function. Performed By: #### B MP #### [facility] [address] [place] [address] Glucose [Mass/Vol] 104 mg/dL Critically high 70-99 M [facility] Comment on above: Performed By: #### B MP #### [facility] [address] [place] [address] Potassium [Moles/Vol] 4.3 mmol/L Normal 3.4-4.9 [facility] Comment on above: Performed By: #### B MP #### [facility] [address] [place] [address] Sodium [Moles/Vol] 144 mmol/L Normal 135-144 [facility] Comment on above: Performed By: #### B MP #### [facility] [address] [place] [address] Urea nitrogen [Mass/Vol] 14 mg/dL Normal 8-23 [facility] Comment on above: Performed By: #### B MP #### [facility] [address] [place] [address] CBC With Platelet No Differe ntialon 11-25-2020 Erythrocyte distribution width (RBC) [Ratio] 13.2 % Normal 11.5-14.5 [facility] Comment on above: Performed By: #### C BCND #### [facility] [address] [place] [address] Hematocrit (Bld) [Volume fraction] 32.3 % Low 42.0-52.0 [facility] Comment on above: Performed By: #### C BCND #### [facility] [address] [place] [address] Hemoglobin (Bld) [Mass/Vol] 11.1 g/dL Low 14.0-18.0 [facility] Comment on above: Performed By: #### C BCND #### [facility] [address] [place] [address] MCH (RBC) [Entitic mass] 33.8 pg Critically high 27.0-31.3 [facility] Comment on above: Performed By: #### C BCND #### [facility] [address] [place] [address] MCHC 34.4 % Normal 33.0-37.0 [facility] Comment on above: Performed By: #### C BCND #### [facility] [address] [place] [address] MCV (RBC) [Entitic vol] 98.3 fL Normal 80.0-100.0 [facility] Comment on above: Performed By: #### C BCND #### [facility] [address] [place] [address] Platelets (Bld) [#/Vol] 212 10*3/uL Normal 130-400 [facility] Comment on above: Performed By: #### C BCND #### [facility] [address] [place] [address] RBC (Bld) [#/Vol] 3.29 10*6/uL Low 4.70-6.10 [facility] Comment on above: Performed By: #### C BCND #### [facility] [address] [place] [address] WBC (Bld) [#/Vol] 7.5 10*3/uL Normal 4.8-10.8 [facility] Comment on above: Performed By: #### C BCND #### [facility] [address] [place] [address] Partial Thromboplastin Timeo n 11-25-2020 aPTT Coag (Bld) [Time] 33.3 s Normal 24.4-36.8 [facility] Comment on above: Result Comment: Effe ctive 03/30/2020: Heparin Therapeutic Range: 64.0 ? 98.0 seconds. Performed By: #### P TT #### [facility] [address] [place] [address] Prothrombin Timeon INR Coag (PPP) [Relative time] 1.0 {INR} Normal [facility] Comment on above: Performed By: #### P T #### [facility] [address] [place] [address] PT Coag (PPP) [Time] 13.0 s Normal 12.3-14.9 [facility] Comment on above: Performed By: #### P T #### [facility] [address] [facility] [place] [address] Type and Screen Capture 3 sc rn cellon 11-25-2020 Type and Screen Capture 3 scrn cell PATIENT: GERONIMO Koroma LOC: [facility] BILL# : [id number] : 1955 SEX: M ORDERED BY: GLORIA ORDAZ ORDERED : 11/25/2020 13:32 COLLECTED: 11/25/2020 13:34 ORDER : [id number] RECEIVED : 11/25/2020 16:04 TEST NAME RESULT UNITS RANGES ABN FL ST ABORH Capture O POS F Antibody 3 Cell Scrn Captu NEG F Normal [facility] Comment on above: Performed By: #### T S3C #### [facility] [address] [place] [id number] XR SPINE ENTIRE (2-3 VIEWS)o n 11-25-2020 [...] Les Delgado MD 11/25/20 Final result Normal [facility] XR SPINE ENTIRE (2-3 VIEWS)O rdered By: [...] osseous changes. There is no significant scoliosis. [facility] [employer] Work Phone: [place], [facility] Incoming Radiant Results From Retrophin/[employer]iaoSheng[employer]fms - 11/25/2020 4:28 PM EDT CLINICAL HISTORY:M54.10 [...] osseous changes. There is no significant scoliosis. [employer] Phone: [employer] Phone: POCT GlucoseOrdered By: Unkn own Result on 06-08-2019 Glucose [Mass/Vol] 125 mg/dL [employer] Phone: Glucose [Mass/Vol] 127 mg/dL High 60 - 115 mg/dl [employer] Phone: Interpretation and review of laboratory results Abnormal [employer] Phone: Performed on ACCU-CHEK [employer] Phone: Performed on ACCU-Ziva SoftwareK [employer] Phone: POCT GlucoseOrdered By: Unkn own Result on 06-07-2019 Glucose [Mass/Vol] 110 mg/dL [employer] Phone: Glucose [Mass/Vol] 131 mg/dL [employer] Phone: Glucose [Mass/Vol] 123 mg/dL [employer] Phone: Glucose [Mass/Vol] 112 mg/dL [employer] Phone: Performed on ACCU-CHEK [employer] Phone: Performed on ACCU-CHEK [employer] Phone: Performed on ACCU-CHEK [employer] Phone: Performed on ACCU-[employer]iva [employer] Phone: POCT GlucoseOrdered By: Unkn own Result on 06-06-2019 Glucose [Mass/Vol] 124 mg/dL [employer] Phone: Glucose [Mass/Vol] 138 mg/dL [employer] Phone: Glucose [Mass/Vol] 125 mg/dL [employer] Phone: Glucose [Mass/Vol] 126 mg/dL [employer] Phone: Glucose [Mass/Vol] 117 mg/dL [facility] [employer] Work Phone: Performed on ACCU-CHEK [facility] [employer] Work Phone: Performed on ACCU-CHEK [facility] [employer] Work Phone: Performed on ACCU-CHEK [facility] [employer] Work Phone: Performed on ACCU-CHEK [facility] [employer] Work Phone: Performed on ACCU-CHEK [facility] [employer] Work Phone: Basic Metabolic Panel w/ Ref rock to MGOrdered By: Hernandez Tovar on 06-05-2019 Anion gap [Moles/Vol] 14 mmol/L [facility] [employer] Work Phone: Calcium [Mass/Vol] 8.5 mg/dL 8.5 - 9.9 mg/dL [facility] [employer] Work Phone: Chloride [Moles/Vol] 98 mmol/L [facility] [employer] Work Phone: CO2 [Moles/Vol] 25 mmol/L [facility] Work Phone: Creatinine [Mass/Vol] 0.94 mg/dL 0.7 - 1.2 mg/dL [facility] [employer] Work Phone: GFR >60.0 >60 [facility] [employer] Work Phone: Comment on above: >60 mL/min/1.73m2 EG FR, calc. for ages 18 and older using the MDRD formula (not corrected for weight), is valid for stable renal function. GFR Non- >60.0 >60 [facility] [employer] Work Phone: Comment on above: >60 mL/min/1.73m2 EG FR, calc. for ages 18 and older using the MDRD formula (not corrected for weight), is valid for stable renal function. Glucose [Mass/Vol] 180 mg/dL High 70 - 99 mg/dL [employer] Phone: Interpretation and review of laboratory results Abnormal [employer] Phone: Potassium reflex Magnesium 3.6 [employer] Phone: Sodium [Moles/Vol] 137 mmol/L [employer] Phone: Urea nitrogen [Mass/Vol] 14 mg/dL 8 - 23 mg/dL [employer] Phone: CBC auto differentialOrdered By: Hernandez Tovar on 06-05-2019 Bands Relative 1 % [employer] Work Phone: Basophils (Bld) [#/Vol] 0.0 10*3/uL 0 - 0.2 K/uL [employer] Phone: Basophils/100 WBC (Bld) 0.4 % [employer] Phone: Eosinophils (Bld) [#/Vol] 0.0 10*3/uL 0 - 0.7 K/uL [employer] Phone: Eosinophils/100 WBC (Bld) 0.1 % [employer] Phone: Erythrocyte distribution width (RBC) [Ratio] 13.4 % 11.5 - 14.5 % [employer] Phone: Hematocrit (Bld) [Volume fraction] 32.2 % Low 42 - 52 % [employer] Phone: Hemoglobin (Bld) [Mass/Vol] 10.6 g/dL Low 14 - 18 g/dL [employer] Phone: Interpretation and review of laboratory results Abnormal [employer] Phone: Lymphocytes (Bld) [#/Vol] 1.1 10*3/uL 1 - 4.8 K/uL [employer] Phone: Lymphocytes/100 WBC (Bld) 7.0 % [employer] Phone: Macrocytes Ql (Bld) 1+ [employer] Phone: MCH (RBC) [Entitic mass] 33.3 pg High 27 - 31.3 pg [employer] Phone: MCHC 33.0 % 33 - 37 % [employer] Phone: MCV (RBC) [Entitic vol] 101.1 fL High 80 - 100 fL [employer] Phone: Monocytes (Bld) [#/Vol] 0.8 10*3/uL 0.2 - 0.8 K/uL [employer] Phone: Monocytes/100 WBC (Bld) 4.7 % [employer] Phone: Neutrophils Absolute 13.4 K/uL High 1.4 - 6 .5 K/uL [employer] Phone: Neutrophils/100 WBC (Bld) 88.0 % [employer] Phone: PLATELET SLIDE REVIEW Normal [employer] Phone: Platelets (Bld) [#/Vol] 223 10*3/uL 130 - 400 K/uL [employer] Phone: RBC (Bld) [#/Vol] 3.19 10*6/uL Low [employer] Phone: SLIDE REVIEW see below [employer] Phone: Comment on above: Slide review agrees with reported results WBC (Bld) [#/Vol] 15.1 10*3/uL High 4.8 - 10.8 K/uL [employer] Phone: POCT GlucoseOrdered By: Unkn own Result on 06-05-2019 Glucose [Mass/Vol] 160 mg/dL High 60 - 115 mg/dl [employer] Phone: Glucose [Mass/Vol] 166 mg/dL [employer] Phone: Glucose [Mass/Vol] 166 mg/dL [employer] Phone: Glucose [Mass/Vol] 134 mg/dL [employer] Phone: Interpretation and review of laboratory results Abnormal [employer] Phone: Performed on ACCU-CHEK [employer] Phone: Performed on ACCU-CHEK [facility] Work Phone: Performed on ACCU-CHEK [facility] Work Phone: Performed on ACCU-CHEK [facility] Work Phone: Surgical PathologyOrdered By : Hernandez Tovar on 06-05-2019 [facility] [place] [facility] [address] [place], [place] [address] FINAL SURGICAL PATHOLOGY REPORT Patient Name: DEONDRE LR Accession No: [id number] Age Sex: 1955 Location: [facility] [id number] Account No: [id number] Collected: 06/04/2019 Med Rec No: [id number] Received: 06/04/2019 Attend Phys: HERNANDEZ TOVAR Completed: 06/05/2019 Perform Phys: HERNANDEZ TOVAR FINAL DIAGNOSIS: DISC- INTERVERTEBRAL DISC MATERIAL WITH DEGENERATIVE CHANGES. WADE/WADE CLINICAL INFORMATION: Spondylosis. Stenosis. Facet arthropathy. Radiculopathy. SPECIMEN: Disc GROSS DESCRIPTION: Specimen received in formalin in a container labeled with patient's name and designated as spine . Specimen consists of multiple pinkish-howell soft to firm tissue fragments measuring in aggregate 3.5 x 3.2 x 0.5 cm. Sections representatives are submitted in two cassettes labeled A1 and A2 for brief decalcification. WADE/TOBIN CPT: 50806 X1 ALDA ELLER M.D. 06/05/2019 Electronically signed out by Page 1 of 1 [employer] Phone: XR LUMBAR SPINE (2-3 VIEWS)O rdered By: Hernandez Tovar on 06-05-2019 Impression: 1. Postoperative changes as described above without unexpected postoperative complicating features. 2. Mild bilateral osteoarthritis of the hips. [employer] Phone: Patient : 1955 Age: 64 years [...] gas pattern. Mild degenerative changes bilateral hips. [employer] Phone: Moses, [facility] Incoming Radiant Results From Retrophin/[employer]yn - 06/05/2019 11:52 AM EST Patient : [...] 2. Mild bilateral osteoarthritis of the hips. [employer] Phone: APTTOrdered By: Susie laura on 06-04-2019 aPTT Coag (Bld) [Time] 32.3 s [facility] Phone: Comment on above: Effective 12/11/2018: Please note methodology and/or reference ranges have changed. aPTT - Heparin Therapeutic Range: 74.0 - 106 seconds Basic Metabolic PanelOrdered By: Susie Lee on 06-04-2019 Anion gap [Moles/Vol] 11 mmol/L [facility] [employer] Phone: Calcium [Mass/Vol] 9.0 mg/dL 8.5 - 9.9 mg/dL [employer] Phone: Chloride [Moles/Vol] 106 mmol/L [employer] Work Phone: CO2 [Moles/Vol] 26 mmol/L [facility] Work Phone: Creatinine [Mass/Vol] 0.93 mg/dL 0.7 - 1.2 mg/dL [facility] Work Phone: GFR >60.0 >60 [facility] [employer] Work Phone: Comment on above: >60 mL/min/1.73m2 EG FR, calc. for ages 18 and older using the MDRD formula (not corrected for weight), is valid for stable renal function. GFR Non- >60.0 >60 [facility] Work Phone: Comment on above: >60 mL/min/1.73m2 EG FR, calc. for ages 18 and older using the MDRD formula (not corrected for weight), is valid for stable renal function. Glucose [Mass/Vol] 134 mg/dL High 70 - 99 mg/dL [facility] Work Phone: Potassium [Moles/Vol] 4.3 mmol/L [employer] Work Phone: Sodium [Moles/Vol] 143 mmol/L [facility] Work Phone: Urea nitrogen [Mass/Vol] 19 mg/dL 8 - 23 mg/dL [facility] Phone: Basic Metabolic Panel w/ Ref rock to MGOrdered By: Hernandez Tovar on 06-04-2019 Anion gap [Moles/Vol] 13 mmol/L [employer] Work Phone: Calcium [Mass/Vol] 8.3 mg/dL Low 8.5 - 9.9 mg/dL [facility] Phone: Chloride [Moles/Vol] 104 mmol/L [facility] [employer] Work Phone: CO2 [Moles/Vol] 23 mmol/L [facility] Work Phone: Creatinine [Mass/Vol] 0.91 mg/dL 0.7 - 1.2 mg/dL [employer] Phone: GFR >60.0 >60 [employer] Phone: Comment on above: >60 mL/min/1.73m2 EG FR, calc. for ages 18 and older using the MDRD formula (not corrected for weight), is valid for stable renal function. GFR Non- >60.0 >60 [employer] Phone: Comment on above: >60 mL/min/1.73m2 EG FR, calc. for ages 18 and older using the MDRD formula (not corrected for weight), is valid for stable renal function. Glucose [Mass/Vol] 177 mg/dL High 70 - 99 mg/dL [employer] Phone: Potassium reflex Magnesium 4.2 [employer] Phone: Sodium [Moles/Vol] 140 mmol/L [employer] Phone: Urea nitrogen [Mass/Vol] 18 mg/dL 8 - 23 mg/dL [employer] Phone: CBCOrdered By: Susie ewing on 06-04-2019 Erythrocyte distribution width (RBC) [Ratio] 13.7 % 11.5 - 14.5 % [employer] Phone: Hematocrit (Bld) [Volume fraction] 35.1 % Low 42 - 52 % [employer] Phone: Hemoglobin (Bld) [Mass/Vol] 11.7 g/dL Low 14 - 18 g/dL [employer] Phone: MCH (RBC) [Entitic mass] 33.6 pg High 27 - 31.3 pg [employer] Phone: MCHC 33.4 % 33 - 37 % [employer] Phone: MCV (RBC) [Entitic vol] 100.7 fL High 80 - 100 fL [employer] Phone: Platelets (Bld) [#/Vol] 206 10*3/uL 130 - 400 K/uL [employer] Phone: RBC (Bld) [#/Vol] 3.48 10*6/uL Low [employer] Phone: WBC (Bld) [#/Vol] 7.6 10*3/uL 4.8 - 10.8 K/uL [employer] Phone: CBC without DiffOrdered By: Hernandez Tovar on 06-04-2019 Erythrocyte distribution width (RBC) [Ratio] 13.7 % 11.5 - 14.5 % [employer] Phone: Hematocrit (Bld) [Volume fraction] 32.9 % Low 42 - 52 % [employer] Phone: Hemoglobin (Bld) [Mass/Vol] 10.7 g/dL Low 14 - 18 g/dL [employer] Phone: MCH (RBC) [Entitic mass] 33.4 pg High 27 - 31.3 pg [employer] Phone: MCHC 32.6 % Low 33 - 37 % [employer] Phone: MCV (RBC) [Entitic vol] 102.4 fL High 80 - 100 fL [employer] Phone: Platelets (Bld) [#/Vol] 177 10*3/uL 130 - 400 K/uL [employer] Phone: RBC (Bld) [#/Vol] 3.22 10*6/uL Low [employer] Phone: WBC (Bld) [#/Vol] 9.0 10*3/uL 4.8 - 10.8 K/uL [employer] Phone: No Panel InformationOrdered By: Susie Lee on 06-04-2019 Interpretation and review of laboratory results Abnormal [employer] Phone: No Panel InformationOrdered By: Hernandez Tovar on 06-04-2019 Interpretation and review of laboratory results Abnormal [employer] Phone: POCT GlucoseOrdered By: Unkn own Result on 06-04-2019 Glucose [Mass/Vol] 140 mg/dL High 60 - 115 mg/dl [employer] Phone: Glucose [Mass/Vol] 187 mg/dL High 60 - 115 mg/dl [employer] Phone: Glucose [Mass/Vol] 181 mg/dL High 60 - 115 mg/dl [employer] Phone: Interpretation and review of laboratory results Abnormal [employer] Phone: Interpretation and review of laboratory results Abnormal [employer] Phone: Performed on [employer] Phone: Performed on [employer] Phone: Performed on ACCU-Ziva SoftwareK [employer] Phone: Protime-INROrdered By: Alejandro Lee on 06-04-2019 INR Coag (PPP) [Relative time] 1.0 {INR} [employer] Phone: Comment on above: Warfarin Therapy INR Therapeutic: 2.0-3.0 With Mechanical Valve: >2.5 Low-intensity Therapeutic Range: 1.5-2.0 Mod-intensity Therapeutic Range: 2.0-3.0 High-intensity Therapeutic Range: 2.5-3.5 High-intensity Therapeutic Range: 3.0-4.0 Common Critical/Alarm Value: 5.0 Common Upper Limit Reported: 10.0 Effective 12/04/2018: Please note methodology and/or reference ranges have changed. PT Coag (PPP) [Time] 13.1 s [employer] Phone: Comment on above: Effective 12/04/18 Please note methodology and/or reference ranges have changed. TYPE AND SCREENOrdered By: Camelia Lee on 06-04-2019 ABO/Rh Positive [employer] Phone: Social History Date Type Detail Facility Start: 08-12-2021 End: 12-06-2021 Exposure to SARS-CoV-2 (event) Not sure [facility] Start: 02-16-2021 Tobacco smoking stat us [facility] Never smoked tobacco [facility] Start: 11-25-2020 End: 08-22-2021 Tobacco smoking status RIIS Former smoker [facility] Start: 11-25-2020 End: 08-22-2021 Tobacco use and exposure Never used [facility] Start: 11-25-2020 End: 12-06-2021 Alcohol intake Ex-drinker (finding) [employer] Phone: Start: 11-25-2020 History SDOH Financial 5 [employer] Phone: Start: 11-25-2020 History SDOH Food Worry 1 [employer] Phone: Start: 1955 Sex Assigned At Not on file M [facility] Phone: Start: 1955 Sex Assigned At Male F [facility] End: 05-27-1984 History of tobacco use Current smoker [facility] Sex Assigned At Sex Assigned At Bir th [employer] Other Vital Signs Date Time Vital Sign Value Performing Clinician Facility 02-04-2023 15:30-0400 Body height 165.1 cm Mike Yuan Other [employer] Other 02-04-2023 15:30-0400 Body mass index (BMI) [Ratio] 28.05 kg/m2 Mike Yuan Other [employer] Other 02-04-2023 15:30-0400 Body weight 76.48 kg Mike Yuan Other [employer] Other 02-04-2023 15:30-0400 Diastolic blood pressure 58 mm[Hg] Mike Yuan Other [employer] Other 02-04-2023 15:30-0400 Respiratory rate 12 /min Mike Yuan Other [employer] Other 02-04-2023 15:30-0400 Systolic blood pressure 93 mm[Hg] Mike Yuan Other [employer] Other 11-02-2022 14:45-0400 Body height 165.1 cm Mike Yuan Other [employer] Other 11-02-2022 14:45-0400 Body mass index (BMI) [Ratio] 28.95 kg/m2 Mike Yuan Other [employer] Other 11-02-2022 14:45-0400 Body weight 78.93 kg Mike Yaun Other [employer] Other 11-02-2022 14:45-0400 Diastolic blood pressure 63 mm[Hg] Mike Yuan Other [employer] Other 11-02-2022 14:45-0400 Systolic blood pressure 97 mm[Hg] Mike Yuan Other [employer] Other 12-06-2021 13:34-0400 SaO2% (BldA) [Mass fraction] 95 % Skye Garcia MD Work Phone: [employer] 12-06-2021 13:00-0400 Diastolic blood pressure 71 mm[Hg] Skye Garcia MD Work Phone: [employer] 12-06-2021 13:00-0400 Systolic blood pressure 95 mm[Hg] Skye Garcia MD Work Phone: [employer] 12-06-2021 12:51-0400 Body height 165.1 cm Sky[facility] 12-06-2021 12:51-0400 Body mass index (BMI) [Ratio] 29.95 kg/m2 Skye Garcia MD [facility] 12-06-2021 12:51-0400 Body weight 81.65 kg Skye Garcia MD [facility] 12-06-2021 12:51-0400 Heart rate 70 /min Skye Garcia MD [facility] 12-06-2021 12:51-0400 Respiratory rate 18 /min Skye Garcia MD [facility] 09-06-2021 08:21-0400 Body height 165.1 cm Zenia Molina MD Work Phone: [facility] 09-06-2021 06:42-0400 Body temperature 98.01 [degF] Zenia Molina MD Work Phone: [facility] 09-06-2021 06:42-0400 Diastolic blood pressure 60 mm[Hg] Zenia Molina MD Work Phone: [facility] 09-06-2021 06:42-0400 Heart rate 71 /min Zenia Molina MD Work Phone: [facility] 09-06-2021 06:42-0400 Respiratory rate 16 /min Zenia Molina MD Work Phone: [facility] 09-06-2021 06:42-0400 SaO2% (BldA) [Mass fraction] 93 % Zenia Molina MD Work Phone: [facility] 09-06-2021 06:42-0400 Systolic blood pressure 99 mm[Hg] Zenia Molina MD Work Phone: [facility] 09-05-2021 07:45-0400 Body mass index (BMI) [Ratio] 29.29 kg/m2 Zenia Molina MD Work Phone: [facility] 09-05-2021 07:45-0400 Body weight 79.83 kg Zenia Molina MD Work Phone: [facility] 08-22-2021 10:36-0400 Body height 165.1 cm Zenia Molina MD Work Phone: [facility] 08-22-2021 10:36-0400 Body temperature 97.9 [degF] Zenia Molina MD Work Phone: [facility] 08-22-2021 10:36-0400 Diastolic blood pressure 78 mm[Hg] Zenia Molina MD Work Phone: [facility] 08-22-2021 10:36-0400 Heart rate 87 /min Zenia Molina MD Work Phone: [facility] 08-22-2021 10:36-0400 Respiratory rate 18 /min Zenia Molina MD Work Phone: [facility] 08-22-2021 10:36-0400 SaO2% (BldA) [Mass fraction] 98 % Zenia Molina MD Work Phone: [facility] 08-22-2021 10:36-0400 Systolic blood pressure 141 mm[Hg] Zenia Molina MD Work Phone: [facility] 08-22-2021 10:18-0400 Body mass index (BMI) [Ratio] 29.45 kg/m2 Zenia Molina MD Work Phone: [facility] 08-22-2021 10:18-0400 Body weight 80.29 kg Zenia Molina MD Work Phone: [facility] 12-08-2020 15:01-0400 Body temperature 98.2 [degF] Hernandez Tovar MD Work Phone: [facility] Work Phone: 12-08-2020 15:01-0400 Diastolic blood pressure 61 mm[Hg] Hernandez Tovar MD Work Phone: [facility] Work Phone: 12-08-2020 15:01-0400 Heart rate 89 /min Hernandez Tovar MD Work Phone: [facility] Work Phone: 12-08-2020 15:01-0400 Respiratory rate 20 /min Hernandez Tovar MD Work Phone: [facility] Work Phone: 12-08-2020 15:01-0400 SaO2% (BldA) [Mass fraction] 98 % Hernandez Tovar MD Work Phone: [facility] Work Phone: 12-08-2020 15:01-0400 Systolic blood pressure 122 mm[Hg] Hernandez Tovar MD Work Phone: [facility] Work Phone: 12-06-2020 23:35-0400 Body height 165.1 cm Hernandez Tovar MD Work Phone: [facility] Work Phone: 12-06-2020 23:35-0400 Body mass index (BMI) [Ratio] 30.25 kg/m2 Hernandez Tovar MD Work Phone: [facility] Work Phone: 12-06-2020 23:35-0400 Body weight 82.46 kg Hernandez Tovar MD Work Phone: [facility] Work Phone: 06-08-2019 07:22-0500 Body temperature 98.2 [degF] Hernandez Tovar MD Work Phone: [facility] Work Phone: 06-08-2019 07:22-0500 Diastolic blood pressure 42 mm[Hg] Hernandez Tovar MD Work Phone: [facility] Work Phone: 06-08-2019 07:22-0500 Heart rate 80 /min Hernandez Tovar MD Work Phone: [facility] Work Phone: 06-08-2019 07:22-0500 Respiratory rate 16 /min Hernandez Tovar MD Work Phone: [facility] Work Phone: 06-08-2019 07:22-0500 SaO2% (BldA) [Mass fraction] 96 % Hernandez Tovar MD Work Phone: [facility] Work Phone: 06-08-2019 07:22-0500 Systolic blood pressure 105 mm[Hg] Hernandez Tovar MD Work Phone: [facility] Work Phone: 06-04-2019 06:15-0500 Body height 162.6 cm Hernandez Tovar MD Work Phone: [facility] Work Phone: 06-04-2019 06:15-0500 Body mass index (BMI) [Ratio] 30.04 kg/m2 Hernandez Tovar MD Work Phone: [facility] Work Phone: 06-04-2019 06:15-0500 Body weight 79.38 kg Hernandez Tovar MD Work Phone: [facility] Work Phone: Clinical Notes 06-04-2019 to 07-18-2023 Note Date & Type Note Facility 07-18-2023 Note [facility] Cardiology Clinic Note Chief Complaint: pt complains of dizziness and dyspnea on exertion HPI: Deondre Lr is a 68 y.o. male with a history of coronary artery disease, hypertension, dyslipidemia here for routine follow-up. PMHx: CAD (noted as mild per 2014 cardiology consult note), PAF (not on AC d/t?), IRBBB, HTN, former smoker, DM Patient here for 1 year follow up CAD, RBBB, and hypertension. Had shoulder surgery after last apt. Says he has chest discomfort and SOB w/ stairs, but this is no different than his usual. He was admitted to [facility] back in September 2022 for falls/orthostatic syncope. Had echo and carotid duplex. He was admitted back in Sep, 2022 for c/o falls. He was found to have orthostatic syncope. He drinks 2 bottles of water a day and 3-4 bottles of pop a day. He often gets dizzy during the day. He has a hx of a.fib. He is not sure if he is taking a blood thinner besides aspirin. Cardiology ROS:ROS Cardiovascular: Positive for chest pain ( discomort with stairs ) and dyspnea on exertion. Musculoskeletal: Positive for arthritis, back pain, falls, joint pain and muscle weakness. Neurological: Positive for dizziness, light-headedness, loss of balance and weakness. All other systems reviewed and are negative. Past Medical History He has a past medical history of Atrial fibrillation (CMS/HCC) (10/28/2013), Coronary atherosclerosis (10/28/2013), and Essential hypertension (10/28/2013). Surgical History He has no past surgical [...] weeks by subcutaneous route., Disp: , Rfl: alendronate (Fosamax) 70 mg tablet, 70 mg., Disp: , Rfl: amitriptyline (Elavil) 50 mg tablet, Take 1 tablet by mouth at bedtime., Disp: , Rfl: aspirin 81 mg EC tablet, Take 1 tablet every day by oral route., Disp: , Rfl: atorvastatin (Lipitor) 20 mg tablet, Take 1 tablet by mouth at bedtime., Disp: , Rfl: diclofenac (Voltaren) 50 mg [...] 100 mg tablet, Take 100 mg by mouth in the morning and at bedtime., Disp: , Rfl: folic acid (Folvite) 1 mg tablet, Take 1 mg by mouth., Disp: , Rfl: furosemide (Lasix) 40 mg tablet, Take 40 mg by mouth in the morning., Disp: , Rfl: gabapentin (Neurontin) 300 mg capsule, Take 1 capsule by mouth in the morning, afternoon, and at bedtime., Disp: , Rfl: HYDROcodone-acetaminophen ([place]) 5-325 mg tablet, take 1 tablet by mouth twice a day if needed for INFLAMMATION OF SACROILIAC JOINT, Disp: , Rfl: lisinopril 10 mg tablet, Take 10 mg by mouth in the morning., Disp: , Rfl: metoprolol succinate XL (Toprol-XL) 50 mg 24 hr tablet, Take 50 mg by mouth in the morning., Disp: , Rfl: omeprazole (PriLOSEC) [address] capsule, Take 20 mg by mouth., Disp: , Rfl: sertraline (Zoloft) 100 mg tablet, Take 100 mg by mouth., Disp: , Rfl: sulfaSALAzine (Azulfidine) 500 mg tablet, Take 1,000 mg by mouth., Disp: , Rfl: insulin aspart (NovoLOG) 100 unit/mL (3 mL) injection pen, Inject by subcutaneous route., Disp: , Rfl: Last Recorded Vitals No data found. Physical Examination: GENERAL: alert and oriented x3, [...] extremities. PSYCH: appropriate mood, affect, and judgement. TESTING: ECHO 10/18/2022 -Global LVEF is normal, LVEF 55-60%, no RWMA -Mild LVH -RV is normal in size, systolic function appears decreased -Mild TR NM stress test 07/05/2022: normal nuclear medicine myocardial perfusion scan ECHO 08/15/21: 1. Normal ventricular function, EF 65% 2. There is hypertrophy of the basal ventricular septum with no evidence of outflow tract obstruction 3. No significant valvular dysfunction 4. Normal right sided pressures 5. No pericardial effusion CXR (08/02/21) FINDINGS: No acute airspace infiltrate. No pneumothorax or pleural effusion. The cardiomediastina (more content not included)... [facility] 07-18-2023 Note Patient here for 1 y ear follow up CAD, RBBB, and hypertension. Had shoulder surgery after last apt. Says he has chest discomfort and SOB w/ stairs, but this is no different than his usual. He was admitted to [facility] back in September 2022 for falls/orthostatic syncope. Had echo and carotid duplex. Review of Systems Cardiovascular: Positive for chest pain ( discomort with stairs ) and dyspnea on exertion. Musculoskeletal: Positive for arthritis, back pain, falls, joint pain and muscle weakness. Neurological: Positive for dizziness, light-headedness, loss of balance and weakness. All other systems reviewed and are negative. [facility] 02-04-2023 Evaluation note Encounter Date Diagnosis Assessment [...] and electrolytes. Pt agrees to neurology referral. [employer] Other 06-09-2023 Evaluation note* Encounter Date Diagnosis [...] and call next week w home readings. [employer] Other 04-25-2023 NoteCONSULTATION CONSULTATION DATE: 09/18/2022 TO: [...] our patients to inform us about any siux-nqb-zyotlzp medications or herbal remedies/nutritional supplements/alternative remedies. 2. [...] treatment options with their primary care provider.[id number] CONSULTATION CONSULTATION DATE: 03/01/2022 This is [...] 75 mg b.i.d., Lyrica 100 mg t.i.d., [place] 5/325 b.i.d. The patient is also under the care of an orthopedic physician in [place] and received a right shoulder injection today. [...] decrease his Lyrica to b.i.d. due to BRACE MAKER somnolence. He is encouraged to take his vitamins and to continue with daily exercises. The patient agreed to move forward with the procedure and will be followed in the clinic thereafter.[id number] NoteCONSULTATION CONSULTATION DATE: 01/25/2022 HISTORY OF PRESENT [...] in a sling and is awaiting the [place] to send a referral to physical therapy. He does complain of diffuse lower back pain today that is no-radiating in nature. His most recent imaging does show bilateral foraminal narrowing as well as multilevel disc arthropathy. The patient reports all activity aggravates his pain. He is 8/10 today. Medications include [place] 5/325 b.i.d., Lyrica 100 mg t.i.d., duloxetine 60 mg daily, amitriptyline 25 mg daily, diclofenac 50 mg b.i.d. The patient states he has been out of his Lyrica for multiple weeks and was taking an unknown nerve pill [facility] as [facility] until he could be seen [...] discuss with the patient regarding seeing a liner roll changer, and he states he believes he has seen a liner roll changer at the [place] in the past. In regards to his back, I explained the benefits of the rhizotomy series and which the patient agrees to try. We will move forward with the #1 bilateral MBB to L1, L2 and L3, L4 which is above the level of his fusion. Patient will be brought to the clinic post procedure and agrees to move forward.[facility] Discharge instructions* Instructions* Skye Garcia MD - 12/06/2021 Remain in splint. Tylenol as needed for pain. [place] in place Tylenol for pain not controlled with Tylenol. With orthopedics tomorrow. Return immediately if you develop any worsening redness pain swelling numbness or tingling of your left forearm hands or fingers or any other acute concerns * Attachments The following attachments cannot be sent through Care Everywhere. * Arm Fracture (Zimbabwean) documented in [facility] [employer] Work Phone: 1([phone]) 493-853306-30-2022 NoteCONSULTATION CONSULTATION DATE: 11/23/2021 This is a [...] Current medications include Diclofenac 50 mg b.i.d., [place] 5/325 b.i.d., Lyrica 100 mg t.i.d., amitriptyline [...] of care and all questions were answered. [facility] Signed and Approved by: DEVAN MAGALLANES . 11/30/2021 16:28:00[facility]04-13-2022 History of Present illness Narrative* Claudia Dasilva RN - 09/06/2021 2:01 PM EDT Reviewed discharge instructions with patient. All questions answered at this time. Patient waiting for ride, then will leave via private auto at discharge. * Brigid Lanza, PRO SHOP ATTENDANT - 09/06/2021 1:25 PM EDT Physical Therapy Facility/Department: [facility] Daily Treatment Note NAME: Deondre [...] has a past medical history of A-fib ([facility]), CAD (coronary artery disease), Chronic back pain, Chronic headaches, Diabetes ([facility]), Hypertension, Restless leg syndrome, Rheumatoid arthritis ([facility]), S/P reverse total shoulder arthroplasty, left, and [...] Minutes 17 Brigid Lanza PTA * Kristy Louis OT - 09/06/2021 1:21 PM EDT Occupational Therapy Facility/Department: [facility] Daily Treatment Note NAME: Deondre [...] has a past medical history of A-fib (HCC), CAD (coronary artery disease), Chronic back pain, [...] forearm, wrist and digit AROM and light molding manager strengthening. Therapy Time Individual Concurrent Group Co-treatment Time In 1250 Time Out 1317 Minutes 27 Kristy Louis OT * Kristy Louis OT - 09/06/2021 10:42 AM EDT [facility] Inpatient/Observation/Outpatient Rehabilitation Date: 09/06/2021 Patient Name: Deondre Lr [] Inpatient Acute/Observation [] Outpatient : 1955 [] Pt no showed for scheduled appointment [x] Pt refused/declined therapy at this time due to: Not wanting to get out of bed, requested to come back after lunch for dressing before discharge. [] Pt cancelled due to: [] No Reason Given [] Sick/ill [] Other: Therapist/Submarine Element Coordinator will attempt to see this patient, at our earliest opportunity. 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 Reports eating once daily. Weight [...] No discharge needs at this time Contact: [phone] * Shmuel Wyatt, CARE DIRECTOR RN - MILITARY EXCHANGE WIRELESS MANAGER - 09/06/2021 7:26 AM EDT Department of [...] Physical therapy. Has outpatient PT scheduled at [facility] 5: D/C Plan: Home 6: Continue Pain Control. [place] 5-325, 1-2 tabs every 4 hours prn [...] plan is home with out-patient therapy at [facility]. This was set up prior to surgery. He does not have advance directives but his would make decisions if he could not. GREEN CHAIN WORKER to monitor andassist with any needs or [...] 09/05/2021 1:05 PM EDT [facility] and report given to Luz [...] EDT Patient with left droopy eyelid and Mariza & Abisai aware; d/t block. May last up to [...] and shown to . documented in this [facility] [employer] Work Phone: 1([phone]) 785-805304-13-2022 Note [facility] Vascular Lower Extremities DVT Study Procedure Patient Name GERONIMO Koroma Date of Study 09/06/2021 Date of 1955 Gender Male Age 66 year(s) Race Room Number 0302 Corporate ID [id number] # Patient Acct [id number] # MR # [id number] Php Lamp Developer Zunilda Morales Veronica Interpreting Physician Tad Mack Referring Shmuel Wyatt, Referring Physician Nurse CARE DIRECTOR RN-MILITARY EXCHANGE WIRELESS MANAGER Practitioner Additional Comments Results were faxed to [...] !Phasic! ! ! + (more content not included)...[facility] T [id number] Hospital Discharge instructions* Discharge Instr - Activity* [...] most local grocery stores, pharmacies, and chain [employer]-stores. If you have any questions about your [...] call Dr. Molina on his cell phone, [phone]. 10. Follow-up with your surgeon and physical [...] daily for 4 weeks. documented in this [facility] [employer] Work Phone: [phone]) 183-624203-29-2022 History of Present illness Narrative* Elena Clayton [...] EST Call received from RAEANN Cheung at [facility] in [place]. Requesting results of chest x- ray done 08/02/21 to complete medical clearance. Skye states she gave the patient the contact information for clock and watch assembler and also states she has notified Julieta at Dr. Molina's office of these events. * Marta Ray RN - 08/03/2021 12:23 PM EST Patient instructed to contact [place] regarding follow up with a clock and watch assembler. Patient states he has thenumber and will reach out today. * Marta Ray RN - 08/03/2021 10:59 AM EST Attempted to contact patient regarding cardiology follow up needed prior to surgery on 08/22/21. Left message for patient to return call to [facility]. documented in this [facility] [employer] Phone: [phone]) 803-158403-29-2022 Hospital Discharge instructions* Instructions* Zunilda Cool RN [...] activities for 24 hours. documented in this [facility] [employer] Work Phone: [phone]) 669-976407-15-2021 Hospital Discharge instructions* Discharge Instr - Activity* [...] at most local grocery stores, pharmacies, and [employer]-stores. If you have any questions about your diet or nutrition, call the hospital and ask for the dietitian. Diabetic Diet * Additional Instructions* Grover Morillo APRN - LAURA - 12/08/2020 dication given may have significant [...] your physician 11) Call your doctor at [phone] for an appointment (or follow up as [...] call OFFICE. The 24- hour phone is [phone] 13) If you are unable to contact [...] Care Everywhere. * Lumbar Spinal Fusion: Post-op (Zimbabwean) * cephalexin (Zimbabwean) * fentanyl transdermal (skin patch) (Zimbabwean) * acetaminophen and hydrocodone (Zimbabwean) * diazepam (oral) (Zimbabwean) * senna (Zimbabwean) documented in this [facility] [employer] Phone: [phone]) 100-496407-15-2021 History of Present illness Narrative* Grover Morillo CARE DIRECTOR RN - MILITARY EXCHANGE WIRELESS MANAGER - 12/08/2020 8:42 AM EDT Progress Note Date:12/08/2020 Room:[place] [address] Patient Name:Deondre Lr Date of :1955 Age:65 [...] PLT 161 183 173 CHEMISTRIES: Recent Labs 12/06/20 1417 12/07/20 0542 NA 137 138 K 4.1 4.8 [...] he sees a pain management doctor in [place], [place]. Patient notes that his pain management [...] but can gently cleanse in shower. * Anastacia Tate OTR/Jaclyn - 12/07/2020 10:10 AM EDT NATALEE BAINS OCCUPATIONAL THERAPY EVALUATION - ACUTE NAME: Deondre Lr : 1955 (65 y.o.) CODE STATUS: Full Code Room: N222/N222-01 Date of Service: 12/07/2020 Patient Diagnosis(es): Pseudoarthrosis [...] L5-S1 PLIF performed by Hernandez Tovar MDat [facility] OR LUMBAR FUSION N/A 12/06/2020 L3-4, L4-5 POSTERIOR LUMBAR INTERBODY FUSION performed by Hernandez Tovar MD at [facility] OR SHOULDER SURGERY SPINE SURGERY Restrictions Restrictions/Precautions: [...] Assistance: Independent (cane) Transfer Assistance: Independent Active Top Cager: Yes Occupation: Retired Type of occupation: multiple [...] old man from home who presents to [facility] with the above deficits s/p planned [...] How much help for eating meals?: None [facility] Inpatient Daily Activity Raw Score: 18 [facility] Inpatient ADL T-Scale Score : 38.66 ADL [...] minutes Eval: 14 minutes Electronically signed by: LISA Drummond, NALINIR/Jaclyn 12/07/2020, 10:10 AM * Enma Townsend, PT - 12/07/2020 10:07 AM EDT Physical Therapy Med Surg Initial Assessment Facility/Department: [address] NEURO Room: [place] [address] NAME: Deondre Lr : 1955 (65 y.o.) [...] 10/28/2013 Past Medical History: Diagnosis Date A-fib ([facility]) CAD (coronary artery disease) Chronic back pain Chronic headaches Diabetes ([facility]) Hypertension Restless leg syndrome Rheumatoid arthritis ([facility]) Sleep apnea Past Surgical History: Procedure Laterality Date LUMBAR FUSION N/A 06/04/2019 L 4-5, L5-S1 DECOMPRESSION L 4-5, L5-S1 POSTEROLATERAL FUSION L5-S1 PLIF performed by Hernandez Tovar MDat [facility] OR LUMBAR FUSION N/A 12/06/2020 L3-4, L4-5 POSTERIOR LUMBAR INTERBODY FUSION performed by Hernandez Tovar MD at [facility] OR SHOULDER SURGERY SPINE SURGERY Chart Reviewed: [...] Assistance: Independent (cane) Transfer Assistance: Independent Active Top Cager: Yes Occupation: Retired Type of occupation: multiple [...] 1: Pt to complete HEP with indep equipment operator intermodal yard goals equipment operator intermodal yard goal 1: Pt to complete bed mobility with indep correction goal 2: Pt to complete transfers with indep correction goal 3: Pt to ambulate 50-150ft with LRD and indep equipment operator intermodal yard goal 4: Pt to manage 3 steps with HR and indep AMPA (6 CLICK) BASIC MOBILITY AM-PAC Inpatient Mobility Raw Score : 18 Therapy Time: Individual Time In 08 Time Out 0902 Minutes 24 Timed Code Treatment Minutes: 8 Minutes (transfers 6min; therex 2min) Enma Townsend PT, 12/07/20 at 10:07 AM Definitions for [...] to accomplish the task * Zan Arrieta RPH - 12/06/2020 3:52 PM EDT PHARMACY NOTE Deondre Lr was ordered adalimumab. Per the [facility] Formulary Committee Policy, this medication is non-formulary and not stocked by pharmacy. The medication can be reordered at discharge. Zan Arrieta, PharmD, BCPS, MHA Staff Pharmacist 12/06/2020 3:52 PM documented in this [facility] [employer] Phone: [phone]) 434-525407-14-2021 NoteFLUORO FOR SURGICAL PROCEDURES : 12/06/2020 10:30 AM CLINICAL HISTORY: R52 Pain ICD10. COMPARISON: None available. Intraoperative fluoroscopy was provided for Dr. Guy melendez. A total of 71.7 seconds of fluoroscopy was used, with 4 fluoroscopic stills saved. No diagnostic images were obtained. Please see Dr. Tovar surgical notes for completeness.[employer] Phone: 1(300) 456-558807-13-2021 NoteFLUORO FOR SURGICAL PROCEDURES : 12/06/2020 10:30 AM CLINICAL HISTORY: R52 Pain ICD10. COMPARISON: None available. Intraoperative fluoroscopy was provided for Dr. Guy procedure. A total of 71.7 seconds of fluoroscopy was used, with 4 fluoroscopic stills saved. No diagnostic images were obtained. Please see Dr. Tovar surgical notes for completeness. Interpreted by: Cirilo Moreland MD Signed by: Cirilo Moreland MD 12/07/20 [facility] History of Present illness Narrative* Nathan Tavares, PRO SHOP ATTENDANT - 06/06/2019 11:53 AM EST Physical Therapy Med Surg Daily Treatment Note Facility/Department: [address] [facility] Room: [facility]/N222-01 NAME: Deondre Lr : 1955 (64 y.o.) [...] FUSION L5-S1 PLIF performed by Fanny Barone [facility] OR SHOULDER SURGERY SPINE SURGERY Restrictions Restrictions/Precautions: [...] Sit to Supine: Stand by assistance Comment: demos good log roll technique without cueing. Transfers [...] benefit from continued therapy after discharge Goals correction goals correction goal 1: pt to be indep with bed mobility utilizing log roll equipment operator intermodal yard goal 2: pt to be indep with transfers correction goal 3: pt to ambulate >100 ft with WW vs cane mod indep correction goal 4: pt to navigate 4 steps with 1 HR, cane supervision assist Patient Goals Patient goals : to go home PLAN Safety Devices Type of devices: All fall risk precautions in place;Bed alarm in place;Call light within reach;Leftin bed;Nurse notified [facility] (6 CLICK) BASIC MOBILITY AM-PAC Inpatient Mobility Raw Score : 18 Therapy Time Individual Time In 1102 Time Out 1116 Minutes 14 Gait: 11 BM/Trsf: 3 Nathan Tavares PTA, 06/06/19 at 11:53 AM * Hernandez Tovar MD - 06/06/2019 9:02 AM EST Patient: Deondre Lr Unit/Bed: N222/N222-01 Date of : 1955 Acct: [id number] Admitting Diagnosis: Lumbar degenerative disc disease [M51.36] [...] Continuous Infusions: sodium chloride 100 mL/hr at 06/06/19 021 PRN Meds:.HYDROcodone 5 mg - acetaminophen, sodium chloride flush, morphine OR morphine, ondansetron, diazepam . sodium chloride 100 mL/hr at 06/06/19 021 Recent Labs 06/04/19 0646 06/04/19 1237 06/05/19 [...] AM EST Physical Therapy Missed Treatment Facility/Department: [facility] MED SURG N222/N222-01 NAME: Deondre Lr : 1955 (64 y.o.) Account: [id number] Gender: male Chart reviewed, attempted PT at [...] treatment again at earliest convenience. * Anastacia Tate, OTR/L - 06/05/2019 9:11 AM EST NATALEE BAINS OCCUPATIONAL THERAPY EVALUATION - ACUTE NAME: Deondre Lr : 1955 (64 y.o.) CODE STATUS: Full Code Room: N222/N222-01 Date of Service: 06/05/2019 Patient Diagnosis(es): Lumbar [...] POSTEROLATERAL FUSION L5-S1 PLIF performed by Fanny BaroneOZ OR SHOULDER SURGERY SPINE SURGERY Restrictions Restrictions/Precautions: [...] and on stairs) Transfer Assistance: Independent Active Top Cager: Yes OBJECTIVE: Orientation Status: Orientation Overall Orientation [...] from home with spouse who presents to [facility] with the above deficits which impact [...] How much help for eating meals?: None [facility] In[facility] Daily Activity Raw Score: 20 [facility] Inpatient ADL T-Scale Score : 42.03 ADL [...] Therapy Time: OT Individual Minutes Time In: 834 Time Out: 0855 Minutes: 20 Eval: 20 minutes Electronically signed by: FE Drummond/Jaclyn 06/05/2019, 9:11 AM * Lamont Kelly, PT - 06/05/2019 9:10 AM EST Physical Therapy Med Surg Initial Assessment Facility/Department: [address] [facility] Room: [place] [address] NAME: Deondre Lr : 1955 (64 y.o.) [...] FUSION L5-S1 PLIF performed by Fanny Barone [facility] OR SHOULDER SURGERY SPINE SURGERY Chart Reviewed: [...] and on stairs) Transfer Assistance: Independent Active Top Cager: Yes OBJECTIVE: Vision: Within Functional Limits Hearing: [...] Goals: Patient goals : to go home equipment operator intermodal yard goals correction goal 1: pt to be indep with bed mobility utilizing log roll equipment operator intermodal yard goal 2: pt to be indep with transfers equipment operator intermodal yard goal 3: pt to ambulate >100 ft with WW vs cane mod indep correction goal 4: pt to navigate 4 steps with 1 HR, cane supervision assist [facility] (6 CLICK) BASIC MOBILITY AM-PAC Inpatient Mobility Raw Score : 18 Therapy Time: Individual Time In 0835 Time Out 0855 Minutes 20 Kelly Miguel, PT, 06/05/19 at 9:11 AM * Venus Jackson RN - 06/05/2019 8:11 AM EST 0811 handoff complete at 0700. This RN assumed care for this pt. Pt is currently sitting in bed eatwith c/o pain 8/10. Medicated per JUL. Neuro check complete. 1025 pt up to chair with PT this morning. PT still has c/o pain /10. Medicated with morphine. 1129 assessment complete. Pt A&OX4. Lungs are clear bilaterally. S1, S2 noted. Abdomen soft, noguarding. Bowel sounds active x4. Neuro check unchanged. Pt is very stiff with ambulation and stillrates pain 8/10. Pt Now off floor to x-ray via cart. 164 pain remains uncontrolled. 165 Dr. Tovar called to check on pt. Changed fentanyl patch to 50mcg 1748 fentanyl patch placed on the upper left back * Marium Marley RN - 06/04/2019 3:31 PM EST Report to [address] [place] [address] RN, pt currently on his cell phone and calm. Call placed to his son Luis to inform him of his dad's room and ph.number. Transport at bedside. * Marium Marley RN - 06/04/2019 12:45 PM EST Lab at bedside for lab draw. * Skye Perkins RN - 06/04/2019 7:36 AM EST vocational technical education director here in preop to draw confirmation lab tube for surgery. documented in this [facility] [employer] Work Phone: 1(639) 939-953301-11-2020 Hospital course Narrative* Hernandez Tovar MD - [...] osteoarthritis of the hips. documented in this [facility] [employer] Work Phone: 1(704) 623-377201-11-2020 Hospital Discharge instructions* Discharge Instr - HODAN* [...] Fanny Barone OR SHOULDER SURGERY SPINE SURGERY Immunization History: [...] MENTAL STATUS:} IV Access: { HODAN IV ACCESS:903884097} Nursing Mobility/ADLs: Walking {CHP DME ADLs:109722470} Transfer {CHP DME ADLs:678704811} Bathing {CHP DME ADLs:819794015} Dressing {CHP DME ADLs:991349925} Toileting {CHP DME ADLs:501769849} Feeding {CHP DME ADLs:877229045} Customer Care Representative {P DME ADLs:485871672} Med Delivery { HODAN MED Delivery:417565327} Wound Care Documentation and Therapy: Elimination: Continence: Bowel: {YES / NO:} Bladder: {YES / NO:} Urinary Catheter: {Urinary Catheter:128529023} Colostomy/Ileostomy/Ileal Conduit: {YES / NO:} Date of Last BM: Intake/Output Summary (Last 24 hours) at 06/06/2019 0911 Last data filed at 06/06/2019 0902 Gross per 24 hour Intake 2280 ml Output 695 ml Net 1585 ml I/O last 3 completed shifts: In: 3520 [P.O.:1520; I.V.:2000] Out: 1325 [Urine:900; Drains:425] Safety Concerns: { HODAN Safety Concerns:737191718} Impairments/Disabilities: { HODAN Impairments/Disabilities:114596050} Nutrition Therapy: Current Nutrition Therapy: { HODAN Diet List:799975931} Routes of Feeding: {[facility] Other Feedings:170130794} Liquids: {[facility] liquid thickness:75272} Daily Fluid Restriction: {[facility] DME Yes amt example:780146215} Last Modified Barium Swallow with Video (Video Swallowing Test): {Done Not Done Date:} Treatments at the Time of Hospital Discharge: Respiratory Treatments: Oxygen Therapy: {Therapy; copd oxygen:33253} Ventilator: { CC Vent List:684771302} Rehab Therapies: {THERAPEUTIC INTERVENTION:6433845741} Weight Bearing Status/Restrictions: {[facility] Weight Bearin} Other Medical Equipment (for information only, NOT a DME order): {EQUIPMENT:416197344} Other Treatments: Patient's personal belongings (please select all that are sent with patient): {[facility] DME Belongings:284119747} RN SIGNATURE: {Esignature:653792695} CASE MANAGEMENT/SOCIAL WORK SECTION Inpatient Status Date: Readmission Risk Assessment Score: Readmission Risk Risk of Unplanned Readmission: 12 Discharging to Facility/ Agency Name: Address: Phone: Fax: Dialysis Facility (if applicable) Name: Address: Dialysis Schedule: Phone: Fax: [employer] signature: {Esignature:774460035} PHYSICIAN SECTION Prognosis: {Prognosis:2329499744} Condition at Discharge: { Patient Condition:233018122} Rehab Potential (if transferring to Rehab): {Prognosis:5749193611} Recommended Labs or Other Treatments After Discharge: Physician Certification: I certify the above information and transfer of Deondre Lr is necessaryfor the continuing treatment of the diagnosis listed and that he requires {Admit to Appropriate Level of Care:14957} for {GREATER/LESS:047383860} 30 days. Update Admission H&P: {CHP DME Changes in HandP:813007972} PHYSICIAN SIGNATURE: * Additional Instructions* Hellen Lopez Camelia - 06/06/2019 medication given may have significant [...] your physician 11) Call your doctor at [phone] for an appointment (or follow up as [...] call OFFICE. The 24- hour phone is [phone] 13) If you are unable to contact your surgeon, in an emergency situation, go to the nearest hospital emergency room. 14) shower on Saturday 15) no driving [facility] WILL FOLLOW FOR PT/OT . THEIR PHONE NUMBER IS [phone] documented in this [employer] [employer] Phone: 1(839) 677-344101-09-2020 NoteFLUORO FOR SURGICAL PROCEDURES : 06/04/2019 6:30 AM CLINICAL HISTORY: Lumbar Fusion . COMPARISON: None available. Intraoperative fluoroscopy was provided for Dr. Tovar procedure. A total of 49.8 seconds of fluoroscopy was used, with 6 fluoroscopic stills saved. No diagnostic images were obtained. Please see Dr. Tovar surgical notes for completeness.[employer] Phone: 1(151) 714-408701-09-2020 Geetha Cooper Incoming Radiant Results From Retrophin/Pacs - 06/04/2019 10:53 AM EST FLUORO FOR SURGICAL PROCEDURES : 06/04/2019 6:30 AM CLINICAL HISTORY: Lumbar Fusion . COMPARISON: None available. Intraoperative fluoroscopy was provided for Dr. Tovar procedure. A total of 49.8 seconds of fluoroscopy was used, with 6 fluoroscopic stills saved. No diagnostic images were obtained. Please see Dr. Tovar surgical notes for completeness. 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 documented in this encounter [employer] Phone: evalkhrhab note* Diagnosis Pain Generalized pain documented in this encounter [employer] Phone: [email or web address] note* Diagnosis Post-op pain- Primary Other acute postoperative pain Lumbar degenerative disc disease Degeneration of lumbar or lumbosacral intervertebral disc documented in this encounter [employer] Phone: evaljhairb note* Diagnosis Left rotator cuff tear arthropathy- Primary Post-op pain Other acute postoperative pain Atrial fibrillation (HCC) Atrial fibrillation Essential hypertension Unspecified essential hypertension Type 2 diabetes mellitus without complication (HCC) S/P reverse total shoulder arthroplasty, left documented in this encounter [employer] Phone: evallvetoq note* Diagnosis Closed fracture of shaft of left humerus, unspecified fracture morphology, initial encounter- Primary documented in this encounter [employer]LEY[facility] Phone: [email or web address] noteNo assessment information available [facility] Work Phone: Evaluation noteNo InformationNort [employer] Other History general Narrative - Reported* Type Description [...] COMPRESSION 2019 Hospitalization History SEE SURGICAL HX [employer] Other Reason for visit Narrative* Auth/Cert Specialty Diagnoses / Procedures Referred By Contac t Referred To Contact Diagnoses S/P rotator cuff repair ROTATOR CUFF REPAIR Procedures IL RECONSTR TOTAL SHOULDER IMPLANT SHOULDER TOTAL ARTHROPLASTY REVERSE Zenia Molina MD [address] [place] [address] [employer] [address] [place] [address] Referral ID Status Reason Start Date Expiration Date Visits Re quested Visits Authorized [id number] 1 1 [employer] Phone: reason for visit Narrative* Auth/Cert Specialty Diagnoses / Procedures Referred By Florecita t Referred To Contact Diagnoses Rotator cuff arthropathy of both shoulders ROTATOR CUFF ARTHROPATHY, LEFT SHOULDER Procedures IL RECONSTR TOTAL SHOULDER IMPLANT SHOULDER TOTAL ARTHROPLASTY REVERSE Zenia Molina MD [address] [place] [address] [employer] [address] [place] [address] Referral ID Status Reason Start Date Expiration Date Visits Re quested Visits Authorized 1 1 [employer] Phone: Summary Purpose Family History No Family History Records FoundNo Family History Records FoundNo Family History Records FoundNo Family History Records FoundNo Family History Records FoundNo Family History Records FoundNo Family History Records Found Advance Directives No Advanced Directives Records FoundDocuments on File Type Date Recorded Patient Power Plant Superintendent Expl anation ACP-Advance Directive ACP-Power of Metal [employer] Latest Code Status on File Code Status Date Activated Date Inactivated Comments Full Code 06/04/2019 3:37 PM 06/08/2019 4:48 PM Documents on File Type Date Recorded Patient Power Plant Superintendent Expl anation ACP-Advance Directive ACP-Power of [employer] Latest Code Status on File Code Status [...] Documents on File Type Date Recorded Patient Power Plant Superintendent Expl anation Advance Directives and Living Will Power of Metal [employer] Latest Code Status on File Code Status Date Activated Date Inactivated Comments Full Code 06/04/2019 3:37 PM Latest Code Status on File Code Status Date Activated Date Inactivated Comments Full Code 09/05/2021 1:40 PM Full Code 12/06/2020 3:10 PM 12/08/2020 6:34 PM Healthcare Agents on File Name Relationship Healthcare Agent Rachellehi p Communication Marlene Lr Spouse Primary Decision Maker Latest Code Status on File Code Status Date Activated Date Inactivated Comments Full Code 09/05/2021 1:40 PM 09/06/2021 4:31 PM Full Code 12/06/2020 3:10 PM 12/08/2020 6:34 PM Healthcare Agents on File Name Relationship Healthcare Agent Rachellehi p Communication Marlene Lr Spouse Primary Decision Maker Advance Directive Response Recorded Date/ Time Advance Directives No December 06 2:13pm Reason for Referral Status Reason Specialty Diagnoses / Procedures Referre d By Contact Referred To Contact Closed Radiology Diagnoses Pain Procedures Fluoro For Surgical Procedures Hernandez Tovar MD [address] [place] [address] Status Reason Specialty Diagnoses / Procedures Referred By Contact Referred To Contact Open Specialty Services Required Home Health Services Diagnoses Lumbar degenerative disc disease Hernandez Tovar MD [address] [place] [address] Reason *FU 02/12 [facility] - balance issues, falls. Normal CT in ER September - labs earlier this summer. thanks Diagnosis 1 Balance disorder (R2 6.89) Referral Organization [facility] walter Referring Provider First Name Mike Referring Provider Last Name Kwabena Referring Provider Specialty [facility] Referred Organization [facility] Referred Provider Reilly Howard Referred Address [address] [place] [phone] Referred Provider Specialty Neurology Referral Priority Routine [...] section and content) DATE CREATED AUTHOR 11/27/2020 [facility] DATE CREATED AUTHOR AUTHOR'S ORGANIZ ATION 12/09/2020 [facility] DATE CREATED AUTHOR AUTHOR'S ORGANIZ ATION 12/13/2021 [facility] DATE CREATED AUTHOR AUTHOR'S ORGANIZ ATION 11/02/2022 [facility] DATE CREATED AUTHOR AUTHOR'S ORGANIZ ATION 12/24/2022 [facility] DATE CREATED AUTHOR AUTHOR'S ORGANIZ ATION 06/18/2023 [facility] DATE CREATED AUTHOR AUTHOR'S ORGANIZ ATION 07/30/2023 [facility] Reason for Visit (unrecogniz ed section and content) Status Reason Specialty Diagnoses / Procedures Referre d By Contact Referred To Contact Diagnoses RADICULOPATHY; PSEUDOARTHROSIS; SPONDYLOSIS; FACET ARTHROPATHY Procedures IL LUMBAR SPINE FUSN,POST INTRBDY L 4-5 PLIF (POSTERIOR LUMBAR INTERBODY FUSION) INFUSE 2 HOURS/ 1 C-ARM/ MAX TABLE/ SSEP/ CELL SAVERS/ NUVASIVE ([facility]) DR. TOVAR TO START AT 9:00 AM Hernandez Tovar MD [address] [place] [id number] [facility] Status Reason Specialty Diagnoses / Procedures Referre d By Contact Referred To Contact Diagnoses Spondylosis SPONDYLOSIS, STENOSIS, FACET ARTHROPATHY, RADICULOPATHY Procedures IL LUMBAR SPINE FUSN,POST INTRBDY L 4-5 DECOMPRESSION, L5-S1 PLIF (POSTERIOR LUMBAR INTERBODY FUSION), 2 HOURS/ 1 C-ARM/ NUVASIVE/ SSEP/ CELL SAVERS/ MAX TABLE, OUTSIDE PAT AT [place] Hernandez Tovar MD [address] [place] [address] [facility] Reason Comments Fall fell off bed this [...] 0839 (Given - Provider: Adelaide Villela RN) ascorbic acid (VITAMIN C) tablet 500 mg 500 mg, Oral, DAILY, First dose on Sat12/06/20 at 1530 1614 (Given - Provider: Brielle Tompkins RN) 0743 (Given - Provider: Adelaide Villela RN) 0839 (Given - Provider: Adelaide Villela, RAEANN) aspirin chewable tablet 81 mg 81 mg, [...] Last dose on Sat12/06/20 at 2330, Post-op 2130 (Due - Provider: Brielle Tompkins RN)2328 (New Bag - Provider: Sasha Garcia RN)2358 (Stopped - Provider: Sasha Garcia RN) cephALEXin (KEFLEX) capsule 500 mg 500 mg, Oral, EVERY 8 HOURS SCHEDULED (3 times per day), First dose on Sat12/07/20 at 0600, For 20 doses 0602 (Given - Provider: Sasha Garcia RN)1331 (Given - Provider: Adelaide Villela RN)2124 (Given - Provider: Blanca Reyes RN) 0533 (Given - Provider: Blanca Reyes RN)1457 (Given - Provider: Adelaide Villela RN)2200 (Due) docusate sodium (COLACE) capsule 100 mg 100 mg, Oral, 2 TIMES DAILY, First dose on Sat12/06/20 at 2099 2039 (Given - Provider: Sasha Garcia RN) 0743 (Given - Provider: Adelaide Villela RN)2123 (Given - Provider: Blanca Reyes, RN) 0839 (Given - Provider: Adelaide Villela RN)2099 (Due) DULoxetine (CYMBALTA) extended release capsule 60 [...] 0839 (Given - Provider: Adelaide Villela RN) flecainide (TAMBOCOR) tablet 100 mg 100 mg, Oral, 2 TIMES DAILY, First dose on Sat12/06/20 at 2099 2039 (Given - Provider: Sasha Garcia RN) 0742 (Given - Provider: Adelaide Villela RN)2123 (Given - Provider: Blanca Reyes, RAEANN) 0839 (Given - Provider: Adelaide Villela RN)2099 (Due) folic acid (FOLVITE) tablet 1 mg 1 mg, Oral, DAILY, First dose on Sat12/06/20 at 1530 1623 (Given - Provider: Brielle Tompkins RN) 0744 (Given - Provider: Adelaide Villela RN) 0839 (Given - Provider: Adelaide Villela, RAEANN) furosemide (LASIX) tablet 40 mg 40 mg, [...] 0839 (Given - Provider: Adelaide Villela RN) insulin glargine (LANTUS) injection vial 10 Units 10 Units, Subcutaneous, NIGHTLY, First dose on Sat12/06/20 at 2100 2221 (Given - Provider: Sasha Garcia RN) 2127 (Given - Provider: Blanca Reyes RN) 2100 (Due) insulin lispro (HUMALOG) injection [...] Tompkins RN) 0750 (Given - Provider: Adelaide Villela RN)1215 (Given - Provider: Adelaide Villela, RAEANN)1733 (Given - Provider: Adelaide Villela, RAEANN) 0842 (Given - Provider: Adelaide Villela, RAEANN)1205 (Not Given - Provider: Adelaide Villela RN - Reason: Order parameters not met)1700 (Due) [...] 2220 (Given - Provider: Sasha Garcia RN) 2130 (Given - Provider: Blanca Reyes, RN) 2099 (Due) lisinopril (PRINIVIL;ZESTRIL) tablet 10 mg 10 mg, Oral, DAILY, First dose on Sat12/06/20 at 1530 1520 (Held - Provider: Brielle Tompkins RN - Reason: Contraindicated) 0743 (Given - Provider: Adelaide Villela RN) 0807 (Not Given - Provider: Adelaide Villela RN - Reason: Other - Comment: BP <100) melatonin disintegrating tablet 5 mg 5 mg, Oral, NIGHTLY, First dose on Sat12/06/20 at 2100 2040 (Given - Provider: Sasha Garcia RN) 2123 (Given - Provider: Blanca Reyes, RAEANN) 2099 (Due) metoprolol succinate (TOPROL XL) extended release tablet 50 mg (COMPLETED) 50 mg, Oral, INDEPENDENT LIVING ADVISOR TO O.R., On Sat12/06/20 at 0800, For 1 dose, Do not crush or chew. 0807 (Given - Provider: Deborah Ray RN) metoprolol succinate (TOPROL XL) extended release tablet 50 mg 50 mg, Oral, DAILY, First dose on Sat12/06/20 at 1530, Do not crush or chew. 1521 (Held - Provider: Brielle Tompkins RN - Reason: Contraindicated) 0742 (Given - Provider: Adelaide Villela, RAEANN) 0807 [...] refused) 0743 (Given - Provider: Adelaide Villela RN)2123 (Given - Provider: Blanca Reyes RN) 0839 (Given - Provider: Adelaide Villela RN)2099 (Due) sertraline (ZOLOFT) tablet 100 mg 100 mg, Oral, 2 TIMES DAILY, First dose on Sat12/06/20 at 2099 2039 (Given - Provider: Sasha Garcia RN) 0743 (Given - Provider: Adelaide Villela RN)2123 (Given - Provider: Blanca Reyes, RAEANN) 0839 (Given - Provider: Adelaide Villela, RAEANN)2099 (Due) sodium chloride flush 0.9 % injection 10 mL 10 mL, Intravenous, EVERY 12 HOURS SCHEDULED (2 times per day), First dose on Sat12/06/20 at 2100, Post-op 2044 (Not Given - Provider: Sasha Garcia RN - Reason: IV Fluid Infusing) 0744 (Given - Provider: Adelaide Villela RN)194 (Given - Provider: Blanca Reyes RN) 0849 (Given - Provider: Adelaide Villela RN)2099 (Due) sulfaSALAzine (AZULFIDINE) tablet 1,000 mg 1,000 mg, Oral, 2 TIMES DAILY, First dose on Sat12/06/20 at 2100 2219 (Given - Provider: Sasha Garcia RN - Comment: sent from pharmacy) 0742 (Given - Provider: Adelaide Villela, RAEANN)2124 (Given - Provider: Blanca Reyes RN) 0839 (Given - Provider: Adelaide Villela RN)2100 (Due) thiamine tablet 100 mg 100 mg, [...] Villela, RAEANN)2124 (Given - Provider: Blanca Reyes, RN) 0533 (Given - Provider: Blanca Reyes, RN) dextrose 5 % solution 100 mL/hr, Intravenous, [...] PACU only 1424 (Given - Provider: Maribell Heath RN)1436 (Given - Provider: Maribell Heath RN) gelatin adsorbable (GELFOAM) sponge (CANCELED) PRN, Starting [...] in 24 hours. 1614 (Given - Provider: rBielle Tompkins RN)2039 (Given - Provider: Sasha Garcia RN) 0340 (Given - Provider: Sasha Garcia RN)0923 (Given - Provider: Adelaide Villela, RAEANN)1331 (Given - Provider: Adelaide Villela, RAEANN)1733 (Given - Provider: Adelaide Villela RN)2124 (Given - Provider: Blanca Reyes, RAEANN) 0348 (Given - Provider: Blanca Reyes, RAEANN)0839 (Given - Provider: Adelaide Villela, RAEANN)1243 (Given - Provider: Adelaide Villela RN) HYDROmorphone (DILAUDID) injection 0.5 mg (CANCELED) 0.5 [...] Garcia RN) 0742 (Given - Provider: Adelaide Villela, RAEANN)1552 (Given - Provider: Adelaide Villela RN)1945 (Given - Provider: Blanca Reyes, RN)2319 (Given - Provider: Blanca Reyes, RN) ondansetron (ZOFRAN) injection 4 mg(Linked Group 1) [...] 0814 (Given - Provider: Elena Clayton RN) acetaminophen (TYLENOL) tablet 650 mg 650 mg, Oral, EVERY 6 HOURS SCHEDULED (4 times per day), First dose on Sat09/05/21 at 1800, Until Discontinued, Maximum dose of acetaminophen is 4000 mg from all sources in 24 hours., Post-op 1707 (Given - Provider: Luz Marina Kerr RN)2346 (Given - Provider: Colin Younger RN) 0519 (Given - Provider: Raisa Fried RN)1144 [...] 2118 (Given - Provider: Colin Younger RN) 08 (Given - Provider: Claudia Dasilva RN)2099 (Due) DULoxetine (CYMBALTA) extended release capsule 60 [...] 2118 (Given - Provider: Colin Younger RN) 08 (Given - Provider: Claudia Dasilva RN)2099 (Due) folic acid (FOLVITE) tablet 1 mg 1 mg, Oral, DAILY, First dose on Sat09/06/21 at 0900, Until Discontinued 809 (Given - Provid er: Claudia Dasilva RN) furosemide (LASIX) tablet 40 mg 40 mg, Oral, DAILY, First dose on Sat09/05/21 at 1500, Until Discontinued 1408 (Given - Provider: Luz Marina Kerr RN) 0810 (Given - Provider: Claudia Dasilva RN) gabapentin (NEURONTIN) capsule 100 mg (COMPLETED) 100 mg, Oral, ONCE, 1 dose, On Sat09/05/21 at 0745, Pre-op (day of surgery) 0814 (Given - Provider: Elena Clayton, RAEANN) gabapentin (NEURONTIN) capsule 300 mg 300 mg, [...] 2 Units 350 and above 3 Units 0 (Not Given - Provider: Colin Younger RN [...] - Comment: 156)1145 (Given - Provider: Claudia Dasilva, RN)1700 (Due) lisinopril (PRINIVIL;ZESTRIL) tablet 10 mg 10 mg, Oral, DAILY, First dose on Sat09/05/21 at 1500, Until Discontinued 1406 (Given - Provider: Luz Marina Kerr RN) [...] at 0830, Do not crush or chew. 08 (Given - Provider: Elena Clayton RN) metoprolol [...] 2118 (Given - Provider: Colin Younger RN) 08 (Given - Provider: Claudia Dasilva RN)2099 (Due) sodium chloride flush 0.9 % injection 10 mL 10 mL, IntraVENous, EVERY 12 HOURS SCHEDULED (2 times per day), First dose on Sat09/05/21 at 2100, Until Discontinued, Post-op 2119 (Not Given - Provider: Colin Younger RN - Reason: IV Fluid Infusing) 756 (Not Given - Provider: Claudia Dasilva RN - Reason: IV Fluid Infusing)2099 (Due) sulfaSALAzine (AZULFIDINE) tablet 1,000 mg 1,000 mg, Oral, 2 TIMES DAILY, First dose on Sat09/05/21 at 2100, Until Discontinued 2118 (Given - Provider: Colin Younger RN) 0810 (Given - Provider: Claudia Dasilva RN)2100 (Due) thiamine mononitrate tablet 100 mg 100 mg, Oral, DAILY, First dose on Sat09/06/21 at 0900, Until Discontinued 0810 (Given - Provid er: Claudia Dasilva RN) Continuous Medication Order 09/04/2021 09/05/2021 09/06/2021 0.9 % sodium chloride infusion IntraVENous, at 100 mL/hr, CONTINUOUS, Starting on Sat09/05/21 at 1400, Post-op 1406 (New Bag - Provider: Luz Marina Kerr RN) 0041 (New Bag - Provider: Colin [...] Regalado CRNA)1127 (New Bag - Provider: Pamella Singh RN)1230 (Stopped - Provider: Claudia Dasilva RN) PRN Medication Order 09/04/2021 09/05/2021 09/06/2021 0.9 [...] PACU only 1135 (Given - Provider: Pamella Singh, RN)1140 (Given - Provider: Pamella Singh RN) [...] (See Alternative - Provider: Colin Younger RN) 013 (See Alternative - Provider: Colin Younger RN) [...] (See Alternative - Provider: Luz Marina Kerr RN)1621 (Given - Provider: Luz Marina Kerr RN)1943 (Given - Provider: Colin Younger RN) 013 (Given - Provider: Colin Younger RN) ondansetron [...] Post-op 0651 (Given - Provid er: Claudia Dasilva RN)1145 (Given - Provider: Claudia Dasilva RN) sodium chloride flush 0.9 % injection [...] Care Teams (unrecognized sec tion and content) Entry Level Accountant Relationship Specialty Start Date End Date Mike Yuan MD PCP - General Family Medicine 12/25/18 Entry Level Accountant Relationship Specialty Start Date End Date Mike Yuan MD PCP - General Family Medicine 12/25/18 Entry Level Accountant Relationship Specialty Start Date End Date Mike Yuan MD PCP - General Family Medicine 12/25/18 Entry Level Accountant Relationship Specialty Start Date End Date Mike Yuan MD PCP - General Family Medicine 12/25/18 Team Status: Active Member Role Status Dates Berta Hernandez APRN BRIM [employer]C Primary Care Provider Activ marvin Team Status: Inactive Member Role Status Dates Berta Hernandez APRN [employer] Primary Care Provider, Atte nding Provider Active Mike Yuan MD Other Provider [...] BE BASED ON THE PRIMARY CLINICAL RECORDS. [employer] [facility]. provides no warranty or guarantee of the accuracy or completeness of information in this document.
--- NOTE | 2023-10-19 13:08 | CT_ITS ---
The [address] [address] Patient Name: DEONDRE MELTON MRN: [id number] date: 1955 Sex: M Assigned Patient Location: ER Current Patient Location: ER Accession/Order Number: [id number] Exam Date: 10/19/2023 14:18 Report Date: 10/19/2023 15:25 At the request of: SAMANTA GOINS Procedure: CT abdomen pelvis wo con EXAM: CT abdomen pelvis wo con HISTORY: abd pain COMPARISON: None. TECHNIQUE: Multiple axial images of the abdomen and pelvis were obtained without the use of IV contrast material. Coronal and sagittal reformatted sequences are submitted for review. FINDINGS: Mild bibasilar atelectasis is seen. The heart size is normal. Coronary arterial calcification is seen. Patient is post cholecystectomy. Surgical clips are seen in the gallbladder fossa. The liver, spleen, pancreas and bilateral adrenal glands appear unremarkable on this noncontrast examination. Patient is post left nephrectomy. Postsurgical changes are seen in the left renal fossa. No abnormal mass is seen in the left renal fossa. The right kidney has an unremarkable noncontrast appearance. There is no evidence for nephrolithiasis or hydronephrosis of the right kidney. No right calculus is seen. The prostate gland measures approximately 3.7 cm in 4 cm in AP and transverse diameter, respectively. Mild irregular appearance of the posterior urinary bladder base is seen, which is likely related to mass effect underlying mild enlarged prostate gland. However, clinical correlation for intrinsic urinary bladder disease may be considered. The urinary bladder is otherwise unremarkable. Nonobstructive bowel pattern is seen. Normal-appearing appendix is visualized. Scattered sigmoid diverticula are seen without significant associated inflammatory changes. No significant bowel seen. Focal dilatation of the right femoral vein is seen in the right inguinal region, best seen on image 45 of coronal series 5. If there is clinical suspicion for deep venous thrombosis, duplex ultrasound examination would be of value for better evaluation. Please note this examination is limited for evaluation of vascular structures due to lack of IV contrast administration. Mild aortic and iliac arterial calcification is seen without aneurysmal dilatation. Mild asymmetric enlargement of the right seminal vesicle is seen with questionable mild adjacent mesenteric fat stranding. Clinical correlation for right seminal vesiculitis may be considered. No significant free fluid or abnormal fluid collection is seen in the pelvis. Small fat-containing bilateral inguinal hernia is seen. Posterior fusion of L3-S1 is seen. Prior kyphoplasty of lower thoracic vertebral bodies is also seen. CT/CT abdomen pelvis wo con IMPRESSION: Focal dilatation of the right femoral vein is seen in the right inguinal region. If there is clinical suspicion for deep venous thrombosis, duplex ultrasound examination would be of value for better evaluation. Please note this examination is limited for evaluation of vascular structures due to lack of IV contrast administration. Mild asymmetric enlargement of the right seminal vesicle is seen with questionable mild adjacent mesenteric fat stranding. Clinical correlation for right seminal vesiculitis may be considered. Sigmoid diverticulosis without CT evidence for diverticulitis. Electronically authenticated by: STAN WARD Date: 10/19/2023 15:25
--- NOTE | 2023-10-19 13:08 | ECG_ITS ---
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
--- NOTE | 2023-10-19 13:08 | XR_ITS ---
The [address] [address] Patient Name: DEONDRE MELTON MRN: [id number] date: 1955 Sex: M Assigned Patient Location: ER Current Patient Location: ER Accession/Order Number: [id number] Exam Date: 10/19/2023 13:40 Report Date: 10/19/2023 14:28 At the request of: SAMANTA GOINS Procedure: XR chest 1V EXAM: XR chest 1V HISTORY: ams COMPARISON: None. TECHNIQUE: Chest X-ray AP, 1 view FINDINGS: Support devices: None. Lungs/pleura: No consolidation, effusion, or pneumothorax. Heart and mediastinum: Normal contours. Bones: No acute abnormality identified. XR/XR chest 1V Impression: No radiographic evidence of acute cardiopulmonary process. Electronically authenticated by: BRIDGET CONWAY Date: 10/19/2023 14:28
[2023-10-19 13:24] LABS: Basophils Percent Auto 0.3 % (0.2-2.0); Eosinophils Absolute Auto 0.1 10^3/uL (0.0-0.7); Eosinophils Percent Auto 1.2 % (0.9-7.0); Hematocrit 34.5 % (42.0-54.0); Hemoglobin 11.1 g/dL (14.0-18.0); Immature Granulocytes Abs Auto 0.02 10^3/uL (0.00-0.03); Immature Granulocytes Pct Auto 0.2 % (0.0-0.5); Lymphocytes Absolute Auto 1.2 10^3/uL (1.2-3.8); Mean Corpuscular HGB Conc 32.2 g/dL (29.9-35.2); Mean Corpuscular Hemoglobin 30.7 pg (25.9-34.0); Mean Corpuscular Volume 95.3 fL (80.0-94.0); Mean Platelet Volume 10.1 fL (9.5-13.5); Monocytes Absolute Auto 0.9 10^3/uL (0.3-0.8); Monocytes Percent Auto 7.3 % (1.7-12.0); Neutrophils Absolute Auto 9.7 10^3/uL (1.4-6.5); Platelet Count 200 10^3/uL (150-450); Red Blood Count 3.62 10^6/uL (4.70-6.10); Red Cell Distribution Width 12.2 % (11.0-15.0)
[2023-10-19] MEDS: 0.9 % SODIUM CHLORIDE 1,000 ML 1000 ML IV (13:29)
[2023-10-19] MEDS: ONDANSETRON PF 4 MG/2 ML VIAL IV ×2 (13:29→20:49)
[2023-10-19] MEDS: FAMOTIDINE/PF 20 MG/2 ML VIAL IV (13:29)
--- NOTE | 2023-10-19 13:36 | US_ITS ---
The [address] [address] Patient Name: DEONDRE MELTON MRN: [id number] date: 1955 Sex: M Assigned Patient Location: ER Current Patient Location: ER Accession/Order Number: [id number] Exam Date: 10/19/2023 13:45 Report Date: 10/19/2023 14:57 At the request of: SAMANTA GOINS Procedure: US scrotum doppler EXAM: US scrotum doppler HISTORY: swelling an pain on right COMPARISON: None. TECHNIQUE: Scrotal ultrasound was performed, utilizing grayscale, color, and spectral Doppler. FINDINGS: RIGHT: Testis size: 3.9 x 3 x 2.3 cm. Testis morphology: Homogeneous appearance. No mass. Testis flow: Normal testicular color and spectral Doppler. Flow is symmetric with the contralateral testis. Epididymis: Heterogeneous. Epididymis flow: Increased epididymal flow compared to contralateral epididymis. Scrotal sac: Mild to moderate hydrocele. Varicocele: None. LEFT: Testis size: 4 x 2.4 x 2.2 cm. Testis morphology: Homogeneous appearance. No mass. Testis flow: Normal testicular color and spectral Doppler. Flow is symmetric with the contralateral testis. Epididymis: Normal size and morphology. Epididymis flow: Normal epididymal flow. Symmetric flow compared to contralateral epididymis. Scrotal sac: No hydrocele. Varicocele: None. Additional findings: None. US/US scrotum doppler IMPRESSION: Evidence of right acute epididymitis and small to moderate hydrocele. Electronically authenticated by: BRIDGET CONWAY Date: 10/19/2023 14:57
[2023-10-19 14:05] LABS: Ethanol <3 mg/dL; Magnesium 1.8 mg/dL (1.8-2.4)
[2023-10-19 14:09] LABS: INR 0.97; Prothrombin Time 10.3 sec (9.0-11.6)
[2023-10-19 14:12] LABS: Lactate/Lactic Acid 1.5 mmol/L (0.4-2.0)
[2023-10-19 14:19] LABS: Alanine Aminotransferase 24 U/L (16-63); Albumin Globulin Ratio 0.8; Albumin Level 3.8 g/dL (3.4-5.0); Alkaline Phosphatase 120 U/L (46-116); Anion Gap 15.7; Aspartate Amino Transferase 18 U/L (15-37); BUN Creatinine Ratio 13.9; Bilirubin Total 0.4 mg/dL (0.2-1.0); Calcium 8.7 mg/dL (8.5-10.1); Chloride 102 mmol/L (98-107); Estimated GFR (African America >60 (>=60); Estimated GFR (Non-African Ame 59 (>=60); Globulin 4.7 g/dL; Glucose 151 mg/dL (74-106); Potassium 4.7 mmol/L (3.5-5.1); Sodium 137 mmol/L (136-145); Total Protein 8.5 g/dL (6.4-8.2); Troponin I High Sensitivity 6.3 pg/mL (4.0-76.1)
[2023-10-19 16:12] LABS: Bilirubin Urine NEGATIVE (NEGATIVE); Blood Urine LARGE (NEGATIVE); Clarity Urine CLEAR (CLEAR); Color Urine LT. YELLOW (YELLOW); Glucose Urine UA NEGATIVE (NEGATIVE); Ketones Urine NEGATIVE (NEGATIVE); Leukocyte Esterase Urine LARGE (NEGATIVE); Nitrite Urine NEGATIVE (NEGATIVE); Protein Urine TRACE mg/dL (NEG/TRACE); Urobilinogen Urine 0.2 EU/dL (0.2-1.0)
[2023-10-19 16:15] LABS: Urine Microscopic Indicated YES
[2023-10-19 16:22] LABS: Bacteria Urine SMALL #/HPF (NONE SEEN); Mucus Urine NONE SEEN (NONE SEEN); RBC Urine 0-2 #/HPF (0-2); WBC Urine 20-50 #/HPF (NONE SEEN)
[2023-10-19 16:23] LABS: Cast Seen? NONE SEEN #/LPF (NONE SEEN); Crystals Seen? None Seen #/HPF (None Seen); Squamous Epithelial Cell Urine NONE SEEN #/LPF (NONE/RARE); Urine Culture Indicated YES
--- NOTE | 2023-10-19 16:39 | US_ITS ---
[address] [address] Patient Name: DEONDRE MELTON MRN: [id number] date: 1955 Sex: M Assigned Patient Location: MS Current Patient Location: MS Accession/Order Number: [id number] Exam Date: 10/19/2023 07:30 Report Date: 10/19/2023 22:02 At the request of: SAMANTA GOINS Procedure: US venous doppler LE RT EXAM: US venous doppler LE RT HISTORY: dvt on ct COMPARISON: None. TECHNIQUE: Ultrasound examination of the right lower extremity for venous evaluation. Standard protocol. FINDINGS: Negative for deep venous thrombosis. No deep venous thrombosis of the common femoral, femoral, popliteal or below-knee veins. Normal waveforms. Veins are compressible. US/US venous doppler LE RT IMPRESSION: No deep venous thrombosis of the right lower extremity.. Electronically authenticated by: ROMIE CAMPUZANO Date: 10/19/2023 22:02
--- NOTE | 2023-10-19 16:40 | ED_ITS ---
HPI HPI - General Adult General Chief complaint: Urogenital-Male Stated complaint: TESTICULAR LUMP Time Seen by Provider: 10/19/23 13:05 Mode of arrival: Wheelchair History of Present Illness HPI narrative: The patient dropped to us by his grandkid, the patient initially was only complaining of right groin pain and mentioned that the pain has been going on for a while at least 2 to 3 months but got worse over the last few days, the pat ient denies any other complaints no nausea no vomiting no fever no change in bowel movements, the patient does have history of dementia and his grandson left him initially without any relative at the bedside, when calling the grandson he mentioned that his grandfather have some dementia, they did have a trip to [place] together and he started complaining of inguinal pain after that Related Data Home Medications ?Medication ?Instructions ?Recorded ?Confirmed adalimumab 40 mg/0.4 mL 40 mg subcut QWEEK 11/02/22 10/19/23 subcutaneous syringe kit (Lacho(CF)) amitriptyline 25 mg tablet 25 mg PO DAILY 11/02/22 10/19/23 ascorbic acid (vitamin C) 500 mg 500 mg PO DAILY 11/02/22 10/19/23 tablet baclofen 10 mg tablet 10 mg PO DAILY 11/02/22 10/19/23 diclofenac sodium 75 mg 75 mg PO BID 11/02/22 10/19/23 tablet,delayed release duloxetine 60 mg capsule,delayed 60 mg PO DAILY 11/02/22 10/19/23 release ferrous sulfate 325 mg (65 mg 325 mg PO BID 11/02/22 10/19/23 iron) tablet,delayed release flecainide 100 mg tablet 100 mg PO Q12H 11/02/22 10/19/23 furosemide 40 mg tablet 40 mg PO DAILY 11/02/22 10/19/23 lidocaine 5 % topical patch 1 patch topical DAILY 11/02/22 10/19/23 lisinopril 10 mg tablet 10 mg PO DAILY 11/02/22 10/19/23 melatonin 5 mg capsule mg 11/02/22 metoprolol tartrate 50 mg tablet 50 mg PO DAILY 11/02/22 06/03/23 multivitamin (Multiple Vitamins 1 tab PO DAILY 11/02/22 10/19/23 tablet) omeprazole 40 mg capsule,delayed 40 mg PO DAILY 11/02/22 10/19/23 release pregabalin 100 mg capsule (Lyrica) 100 mg PO BID 11/02/22 06/03/23 simvastatin 40 mg tablet 40 mg PO DAILY 11/02/22 10/19/23 sulfasalazine 500 mg tablet 1 g PO DAILY 11/02/22 06/03/23 thiamine HCl (vitamin B1) 100 mg 100 mg PO DAILY 11/02/22 10/19/23 tablet alendronate 70 mg tablet 70 mg PO QWEEK 06/13/23 10/19/23 atorvastatin 20 mg tablet 20 mg PO DAILY 06/13/23 10/19/23 folic acid 1 mg tablet 1 mg PO DAILY 06/13/23 10/19/23 gabapentin 300 mg capsule 300 mg PO Q8H 06/13/23 10/19/23 lidocaine 5 % topical patch 1 patch topical DAILY 06/13/23 10/19/23 mirtazapine 15 mg tablet 15 mg PO DAILY 06/13/23 10/19/23 prazosin 1 mg capsule 3 mg PO DAILY 06/13/23 10/19/23 Previous Rx's ?Medication ?Instructions ?Recorded hydrocodone 5 mg-acetaminophen 325 1 tab PO BID PRN pain #60 tabs 03/07/23 mg tablet Allergies Allergy/AdvReac Type Severity Reaction Status Date / Time No Known Drug Allergies Allergy Verified 06/03/23 10:24 Opioid HPI Opioid Management Most Recent Opioid Data: Last Pain Scale 6 06/03/23 10:27 Last ED Pain Assessment 10/19/23 13:10 Last ORT Total Score 0 10/19/23 17:52 Last ORT Risk Category Low Risk 10/19/23 17:52 Review of Systems ROS Status of ROS 10 or more systems reviewed and unremark able except as noted in history and below [facility] Social History Highest level of school completed/degree received: 10th grade Exam Narrative Exam Narrative: Nurses notes and vital signs reviewed and patient is not hypoxic. General: Well-appearing and in no apparent distress. Skin: Warm, dry, no pallor noted. No rash. Head: Normocephalic, atraumatic. Neck: Supple, non-tender. Eye: Pupils are equal, round and EOMI. No scleral icterus. Ears, Nose, Mouth, and Throat: TM are clear, no nasal mucosal hypertrophy. Oral mucosa is moist, no posterior oropharynx erythema, uvula is mid-line Cardiovascular: Regular Rate and Rhythm without murmur, gallop or rub. Respiratory: No accessory muscle use or respiratory distress. Lungs are clear to auscultation, no wheezing, rales or rhonchi Chest Wall: no tenderness Back: No midline thoracic or lumbar vertebral tenderness. No CVA tenderness Musculoskeletal: normal ROM, no calf or popliteal tenderness, no lower extremity edema/swelling GI: Abdomen is soft, non-distended. Normal bowel sounds. No masses appreciated. No tenderness to palpation. No rebound, guarding, or rigidity noted. There is tenderness upon palpation of the right testicles and there is no redness or hotness of the scrotum or any changes that is identified Neurological: A&O x4. No cranial nerve dysfunction observed. No truncal atax ia. Moves all extremities. Sensation intact. Psychiatric: Cooperative and interactive. Normal mood and affect. Constitutional Vital Signs, click to edit/add: Last Vital Signs Temp 98.2 F 10/19/23 13:15 Pulse 93 H 10/19/23 17:40 Resp 26 H 10/19/23 17:40 BP 108/66 10/19/23 17:01 Pulse Ox 94 L 10/19/23 17:10 O2 Del Method Room Air 10/19/23 13:10 Course Vital Signs Vital signs: Vital Signs Temperature 98.5 F 10/19/23 12:52 Pulse Rate 50 L 10/19/23 12:52 Respiratory Rate 17 10/19/23 12:52 Blood Pressure 135/61 10/19/23 12:52 Pulse Oximetry 94 L 10/19/23 12:52 Temperature 98.2 F 10/19/23 13:15 Pulse Rate 93 H 10/19/23 17:40 Respiratory Rate 26 H 10/19/23 17:40 Blood Pressure 108/66 10/19/23 17:01 Pulse Oximetry 94 L 10/19/23 17:10 Oxygen Delivery Method Room Air 10/19/23 13:10 Medical Decision Making [facility] Narrative Medical decision making narrative: The patient CBC shows mild leukocytosis chemistry was within normal Urinalysis positive for UTI And the patient ultrasound shows possible epididymitis Patient was started on ceftriaxone and doxycycline as treatment CAT scan of the abdomen shows a concern for DVT in the right femoral area Right now the patient will be provided with 1 dose of Lovenox and the Doppler venous can be done as inpatient Lactic acid is 1.5 Dr. Loya called and case discussed with her she agreed with above-mentioned plan Lab Data Labs: Lab Results 10/19/23 10/19/23 Range/Units 13:15 16:04 WBC 12.0 H (4.0-11.0) 10^3/uL RBC 3.62 L (4.70-6.10) 10^6/uL Hgb 11.1 L (14.0-18.0) g/dL Hct 34.5 L (42.0-54.0) % MCV 95.3 H (80.0-94.0) fL MCH 30.7 (25.9-34.0) pg MCHC 32.2 (29.9-35.2) g/dL RDW 12.2 (11.0-15.0) % Plt Count 200 (150-450) 10^3/uL MPV 10.1 (9.5-13.5) fL Neut % (Auto) 81.0 H (43.0-75.0) % Lymph % (Auto) 10.0 L (20.5-60.0) % [place] % (Auto) 7.3 (1.7-12.0) % Eos % (Auto) 1.2 (0.9-7.0) % Baso % (Auto) 0.3 (0.2-2.0) % Neut # (Auto) 9.7 H (1.4-6.5) 10^3/uL Lymph # (Auto) 1.2 (1.2-3.8) 10^3/uL [place] # (Auto) 0.9 H (0.3-0.8) 10^3/uL Eos # (Auto) 0.1 (0.0-0.7) 10^3/uL Baso # (Auto) 0.0 (0.0-0.1) 10^3/uL Abs Immat Gran (auto) 0.02 (0.00-0.03) 10^3/uL Imm/Tot Granulo (auto) 0.2 (0.0-0.5) % PT 10.3 (9.0-11.6) sec INR 0.97 Sodium 137 (136-145) mmol/L Potassium 4.7 (3.5-5.1) mmol/L Chloride 102 (98-107) mmol/L Carbon Dioxide 24.0 (21.0-32.0) mmol/L Anion Gap 15.7 BUN 17.0 (7.0-18.0) mg/dL Creatinine 1.22 (0.70-1.30) mg/dL Est GFR ( Amer) >60 (>=60) Est GFR (Non-Af Amer) 59 L (>=60) BUN/Creatinine Ratio 13.9 Glucose 151 H (74-106) mg/dL Lactate 1.5 (0.4-2.0) mmol/L Calcium 8.7 (8.5-10.1) mg/dL Magnesium 1.8 (1.8-2.4) mg/dL Total Bilirubin 0.4 (0.2-1.0) mg/dL AST 18 (15-37) U/L ALT 24 (16-63) U/L Alkaline Phosphatase 120 H (46-116) U/L Troponin I High Sens 6.3 (4.0-76.1) pg/mL Total Protein 8.5 H (6.4-8.2) g/dL Albumin 3.8 (3.4-5.0) g/dL Globulin 4.7 g/dL Albumin/Globulin Ratio 0.8 Lipase 45.0 (16.0-77.0) U/L Urine Color Lt. yellow (YELLOW) Urine Clarity Clear (CLEAR) Urine pH 6.0 (5.0-9.0) Ur Specific [place]irt 1.020 (1.005-1.025) Urine Protein Trace (NEG/TRACE) mg/dL Urine Glucose (UA) Negative (NEGATIVE) mg/dL Urine Ketones Negative (NEGATIVE) mg/dL Urine Occult Blood Large A (NEGATIVE) Urine Nitrite Negative (NEGATIVE) Urine Bilirubin Negative (NEGATIVE) Urine Urobilinogen 0.2 (0.2-1.0) EU/dL Ur Leukocyte Esterase Large A (NEGATIVE) Urine RBC 0-2 (0-2) #/HPF Urine WBC 20-50 A (NONE SEEN) #/HPF Ur Squamous Epith Cells None seen (NONE/RARE) #/LPF Urine Crystals None seen (None Seen) #/HPF Urine Bacteria Small A (NONE SEEN) #/HPF Urine Casts None seen (NONE SEEN) #/LPF Urine Mucus None seen (NONE SEEN) Ur Culture Indicated? Yes Ethanol Quant <3 mg/dL Discharge Plan Discharge Chief Complaint: Urogenital-Male Clinical Impression: Epididymitis, Acute UTI DVT (deep venous thrombosis) Qualifiers: DVT location: lower extremity Affected thrombotic vein of extremity: femoral Chronicity: acute Laterality: right Qualified Code(s): I82.411 - Acute embolism and thrombosis of right femoral vein Patient Disposition: Admitted As Inpatient Discharge Date/Time: 10/19/23 17:31
[2023-10-19] MEDS: DOXYCYCLINE MONOHYDRATE 100 MG CAPSULE PO (17:00)
[2023-10-19] MEDS: CEFTRIAXONE 1,000 MG in 0.9 % SODIUM CHLORIDE 50 ML 100 MG IV (17:00)
[2023-10-19] MEDS: ENOXAPARIN SODIUM 80 MG/0.8 ML SYRINGE SUBQ (17:00)
--- OUTSIDE RECORDS SUMMARY | 2023-10-19 17:40 | XMS_ITS | CCD ---
Author Organization [facility] Care Team Providers Care Solar Project Engineer Name Role Phone Mike Yuan MD Primary Care Provider MIKE YUAN Primary Care Unavailable GUY, HERNANDEZ H. Admitting Unavailable GUY, HERNANDEZ H. Attending Unavailable BELINDA MONROE Referring Unavailable MIKE YUAN Primary Care Unavailable MIKE YUAN Primary Care Unavailable GUY, HERNANDEZ HNickolas Attending Unavailable GUY, HERNANDEZ H. Referring Unavailable Mike Yuan MD Primary Care Provider Mike Yuan MD Primary Care Provider GABRIELLA, [...] Unavailable LAKSHMIPATHY ., BALDOATH Attending Pia vailable ALESSANDRAMIPATHY ., BALDOATH Admitting Pia vailable DR JENNIFER [...] DR LOUISE Ewing Admitting Unavailable LAKSHMIPATHY ., STEPHANIE Attending Pia vailable ALESSANDRAMIPATHAlexandro ., STEPHANIE Admitting Pia vailable DR JENNIFER RAGSDALE Primary Care Unavailable FLORES ., DR LOUISE Ewing Attending Unavailable YUAN, [...] Unavailable BALL, DR RODRIGUEZ Primary Care Unavailable [facility], DR BLANKENSHIP Consulting Unavailable ZIEBER, DR REILLY Mattson Consulting Unavailable MISC, DR LAN Attending Unavailable MISC, DR LAN Admitting Unavailable YUAN, DR MIKE Wong Primary Care Unavailable MISC, DR LAN Consulting Unavailable MISC, DR LAN Attending Unavailable MISC, DR LAN Admitting Unavailable MISC, DR LAN Consulting Unavailable BALL, DR RORDIGUEZ Primary Care Unavailable ZIEBER, DR REILLY Mattson Consulting Unavailable LAKSHMIPATHY ., NARENDRANATH Admitting Pia vailable LAKSHMIPATHY ., NARENDRANATH Attending Pia vailable ZIEBER, DR REILLY Mattson Consulting Unavailable YUAN, DR MIKE Wong Primary Care Unavailable LAKSHMIPATHY ., NARENDRANATH Consulting Pia vailable FAWWAD, APARICOI H Admitting Unavailable YUAN, DR MIKE Wong Primary Care Unavailable FAWWAD, APARICIO H Attending Unavailable [place], DR RAMONA Carmichael Consulting Unavailable JANIS ., MELINDA QUINTANILLA Consulting [facility] FAWWAD, APARICIO H Consulting Unavailable SISTER, ADAM Consulting Unavailable [facility], PANDA Consulting Unavailable MAGALLANES ., DEVAN [...] Altamirano Attending Unavailable RAVEN PRADO Attending Unavailable Medications Current Medications Medication Drug [...] mg docusate sodium 50 mg / sennosides, care home 8.6 mg oral tablet (3 sources) Start: [...] or glucagon. Start: 12-06-2020 15 g, Oral, [place] N, Low blood sugar, Starting on Sat12/06/20 [...] disease (2 sources) Atherosclerotic heart disease of [place] coronary artery without angina pectoris; Translations: [Coronary [...] Onset: 10-23-2022 Other aftercare (1 source) Other halfway (current) drug therapy; Translations: [OTH STRATIGRAPHER CURRENT DRUG THERAPY] Onset: 10-23-2022 Episodic Other aftercare (1 source) metal polisher (current) use of non-steroidal anti-inflammatories (NSAID); Translations: [ALF USE NSAID] Onset: 10-23-2022 Episodic Other aftercare (1 source) shelter (current) use of aspirin; Translations: [STRATIGRAPHER CURRENT USE OF ASPIRIN] Onset: 10-23-2022 Episodic [...] with his hx of falls. Thanks! Normal [facility] Telephoneon 07-29-2023 Telephone [id number] Deondre Lr Franci 1955 [facility] Provider Department Center 07/29/[address] No family history on file Normal [facility] Office Visiton 07-18-2023 Follow-up visit [id number] Shaheed Lrdevora Koroma 1955 [facility] Provider Department Center 07/18/2023 RAVEN CARVAJAL Hos No family history on file Level of Service:20555 [place] OFFICE/OUTPATIENT ESTABLISHED MOD MDM 30 MIN Normal [facility] CT head/brain wo conon 12-12 CT head/brain wo con [facility] [place] [address] CT Scan Report Signed Patient: Deondre Lr MR#: [id number] 7 : 1955 Acct:[id number] Age/Sex: 67 / M ADM Date: 12/12/22 Loc: CT Room: Type: [facility] Attending Dr: Berta Hernandez APRN, NETWORK INFRASTRUCTURE ARCHITECT-C Copies to: Berta Hernandez APRN, CNP Ordering [...] Debby Ray M.D.12/12/2022 3:54 PM Dictation Location: [place] [address] Transcribed By: [facility] 12/12/22 1554 Dictated By: Debby Ray II, MD 12/12/22 1551 Signed By: 12/12/22 1554 [facility] CULTURE URINEon 10-21-2022 CULTURE URINE [...] F Levofloxacin 0.25 S F Normal [facility] Comment on above: Performed By: #### U RCX ####[facility] [id number] [place] [address]Dr. Olga So CBC AUTO DIFFon 10-19-2022 BASO # 0.0 103/ul Normal 0.0-0.1 [facility] Comment on above: Performed By: #### C HYUN HSTROPN, TSH #### [facility] [address] [place] [address] [address] Olga So Basophils/100 WBC (Bld) 0.6 % Normal 0.2-2.0 [facility] Comment on above: Performed By: #### C HYUN HSTROPN, TSH #### [facility] [address] [place] [address] Dr. Olga So EO # 0.2 103/ul Normal 0.0-0.7 [facility] Comment on above: Performed By: #### C HYUN HSTROPDago, TSH #### [facility] [address] [place] [address] Dr. Olga So Eosinophils/100 WBC (Bld) 3.7 % Normal 0.9-7.0 [facility] Comment on above: Performed By: #### C HYUN HSTROPN, TSH #### [facility] [address] [place] [address] Dr. Olga So Erythrocyte distribution width (RBC) [Ratio] 13.0 % Normal 11.0-15.0 [facility] Comment on above: Performed By: #### C HYUN HSTROPN, TSH #### [facility] [address] [place] [address] Dr. Olga So Hematocrit (Bld) [Volume fraction] 28.8 % Critically low 42.0-54.0 [facility] Comment on above: Performed By: #### C HYUN HSTROPN, TSH #### [facility] [address] [place] [address] [address] Olga So Hemoglobin (Bld) [Mass/Vol] 9.3 g/dL Critically low 14.0-18.0 [facility] Comment on above: Performed By: #### C MP, HSTROPN, TSH #### [facility] [address] [place] [address] Dr. Olga So IG # 0.02 10e3/ul Normal 0.00-0.03 [facility] Comment on above: Performed By: #### C MP, HSTROPN, TSH #### [facility] [address] [place] [address] Dr. Olga So IG % 0.3 % Normal 0.0-0.5 [facility] Comment on above: Performed By: #### C MP, HSTROPN, TSH #### [facility] [address] [place] [address] Dr. Olga So LYMPH # 2.2 103/ul Normal 1.2-3.8 [facility] Comment on above: Performed By: #### C MP, HSTROPN, TSH #### [facility] [address] [place] [address] Dr. Olga So Lymphocytes/100 WBC (Bld) 33.8 % Normal 20.5-60.0 [facility] Comment on above: Performed By: #### C MP, HSTROPN, TSH #### [facility] [address] [place] [address] Dr. Olga So MANUAL DIFF REQ NO Normal [facility] Comment on above: Performed By: #### C MP, HSTROPN, TSH #### [facility] [address] [place] [address] Dr. Olga So MCH (RBC) [Entitic mass] 30.4 pg Normal 25.9-34.0 [facility] Comment on above: Performed By: #### C MP, HSTROPN, TSH #### [facility] [address] [place] [address] Dr. Olga So MCHC (RBC) [Mass/Vol] 32.3 g/dL Normal 29.9-35.2 [facility] Comment on above: Performed By: #### C MP, HSTROPN, TSH #### [facility] [address] [place] [address] Dr. Olga So MCV (RBC) [Entitic vol] 94.1 fL Critically high 80.0-94.0 [facility] Comment on above: Performed By: #### C MP, HSTROPN, TSH #### [facility] [address] [place] [address] Dr. Olga So MONO # 0.5 103/ul Normal 0.3-0.8 [facility] Comment on above: Performed By: #### C MP, HSTROPN, TSH #### [facility] [address] [place] [address] Dr. Olga So Monocytes/100 WBC (Bld) 7.1 % Normal 1.7-12.0 [facility] Comment on above: Performed By: #### C MP, HSTROPN, TSH #### [facility] [address] [place] [address] Dr. Olga So NEUT # 3.5 103/ul Normal 1.4-6.5 [facility] Comment on above: Performed By: #### C MP, HSTROPN, TSH #### [facility] [address] [place] [address] Dr. Olga So Neutrophils/100 WBC (Bld) 54.5 % Normal 43.0-75.0 [facility] Comment on above: Performed By: #### C MP, HSTROPN, TSH #### [facility] [address] [place] [address] Dr. Olga So Platelet mean volume (Bld) [Entitic vol] 9.3 fL Critically low 9.5-13.5 [facility] Comment on above: Performed By: #### C MP, HSTROPN, TSH #### [facility] [address] [place] [address] Dr. Olga So PLT 276 103/ul Normal 150-450 [facility] Comment on above: Performed By: #### C MP, HSTROPN, TSH #### [facility] [address] [place] [address] [address] Olga So RBC 3.06 106/ul Critically low 4.70-6.10 [facility] Comment on above: Performed By: #### C MP, HSTROPN, TSH #### [facility] [address] [place] [address] [address] Olga So WBC 6.5 103/ul Normal 4.0-11.0 [facility] Comment on above: Performed By: #### C MP, HSTROPN, TSH #### [facility] [address] [address] [address] Olga So POINT OF CARE GLUCOSEon 09-25 Glucose [Mass/Vol] 143 mg/dL Critically high 74-106 [facility] Comment on above: Performed By: #### P OCGLUC #### [facility] [address] [address] [address] Olga So Glucose [Mass/Vol] 156 mg/dL Critically high 74-106 [facility] Comment on above: Performed By: #### P OCGLUC #### [facility] [address] [place] [address] Dr. Olga So PROF 14(COMP METB)on 023 Albumin [Mass/Vol] 2.9 g/dL Critically low 3.4-5.0 [facility] Comment on above: Performed By: #### P OCGLUC #### [facility] [address] [place] [address] Dr. Olga So Albumin/Globulin [Mass ratio] 0.6 {ratio} Normal [facility] Comment on above: Performed By: #### P OCGLUC #### [facility] [address] [place] [address] Dr. Olga So ALP [Catalytic activity/Vol] 155 U/L Critically high 46-116 [facility] Comment on above: Performed By: #### P OCGLUC #### [facility] [address] [place] [address] Dr. Olga So ALT [Catalytic activity/Vol] 23 U/L Normal 16-63 [facility] Comment on above: Performed By: #### P OCGLUC #### [facility] [address] [address] [address] Olga So Anion gap [Moles/Vol] 12.4 mmol/L Normal [facility] Comment on above: Performed By: #### P OCGLUC #### [facility] [address] [address] [address] Olga So AST [Catalytic activity/Vol] 19 U/L Normal 15-37 [facility] Comment on above: Performed By: #### P OCGLUC #### [facility] [address] [address] [address] Olga So Calcium [Mass/Vol] 8.5 mg/dL Normal 8.5-10.1 [facility] [place] Comment on above: Performed By: #### P OCGLUC #### [facility] [address] [address] [address] Olga So Chloride [Moles/Vol] 104 mmol/L Normal 98-107 [facility] Comment on above: Performed By: #### P OCGLUC #### [facility] [address] [address] [address] Olga So CO2 [Moles/Vol] 27.3 mmol/L Normal 21.0-32.0 [facility] Comment on above: Performed By: #### P OCGLUC #### [facility] [address] [address] [address] Olga So Creatinine [Mass/Vol] 1.13 mg/dL Normal 0.70-1.30 [facility] Comment on above: Performed By: #### P OCGLUC #### [facility] [address] [address] [address] Olga So EGFR-AF PARAGUAYAN >60 Normal >=60 [facility] Comment on above: Performed By: #### P OCGLUC #### [facility] [address] [address] [address] Olga So EGFR-NON AF PARAGUAYAN >60 Normal >=60 [facility] Comment on above: Performed By: #### P OCGLUC #### [facility] [address] [address] [address] Olga So Globulin (S) [Mass/Vol] 4.7 g/dL Normal [facility] Comment on above: Performed By: #### P OCGLUC #### [facility] [address] [address] [address] Olga So Glucose [Mass/Vol] 147 mg/dL Critically high 74-106 [facility] Comment on above: Performed By: #### P OCGLUC #### [facility] [address] [address] [address] Olga oS Potassium [Moles/Vol] 4.7 mmol/L Normal 3.5-5.1 [facility] Comment on above: Performed By: #### P OCGLUC #### [facility] [address] [address] [address] Olga So Protein [Mass/Vol] 7.6 g/dL Normal 6.4-8.2 [facility] [place] Comment on above: Performed By: #### P OCGLUC #### [facility] [address] [address] [address] Olga So Sodium [Moles/Vol] 139 mmol/L Normal 136-145 [facility] [place] Comment on above: Performed By: #### P OCGLUC #### [facility] [address] [address] [address] Olga So TBIL <0.1 Critically low 0.2-1.0 [facility] Comment on above: Performed By: #### P OCGLUC #### [facility] [address] [address] [address] Olga So Urea nitrogen [Mass/Vol] 16.0 mg/dL Normal 7.0-18.0 [facility] Comment on above: Performed By: #### P OCGLUC #### [facility] [address] [address] [address] Olga So Urea nitrogen/Creatinine [Mass ratio] 14.2 mg/mg Normal [facility] Comment on above: Performed By: #### P OCGLUC #### [facility] [address] [address] [address] Olga So ECHOCARDIO M/2D COMPLETEon 0 10-18-2022 ECHOCARDIO M/2D COMPLETE Patient: DEONDRE LR Exam Date: 10/18/2022 : 1955 Gender:M Ordering : SHAIKH Uyen VARGAS . Admission #: [id number] Family : DR MIKE YUAN M.D. Order #: [id number] CLICK HERE TO VIEW EXAM ECHOCARDIOGRAM REPORT [...] Left Atrium LA Volume Index (2D A2C): 12760 mm3 Left Atrium Systolic Dimension: 4.30 cm [...] Redmond M.D. on 10/19/2022 at 10:43 Normal [facility] POINT OF CARE GLUCOSEon 09-25 Glucose [Mass/Vol] 169 mg/dL Critically high [address] [place] [address] Comment on above: Performed By: #### P OCGLUC #### [facility] [address] [address] [address] Olga So Glucose [Mass/Vol] 117 mg/dL Critically high -106 [facility] Comment on above: Performed By: #### P OCGLUC #### [facility] [address] [address] [address] Olga So Glucose [Mass/Vol] 162 mg/dL Critically high -106 [facility] Comment on above: Performed By: #### C MP, HSTROPN, TSH #### [facility] [address] [address] [address] Olga oS Glucose [Mass/Vol] 109 mg/dL Critically high -106 [facility] Comment on above: Performed By: #### P OCGLUC #### [facility] [address] [place], [place] [address] Dr. Olga So Glucose [Mass/Vol] 187 mg/dL Critically high 74-106 [facility] Comment on above: Performed By: #### P OCGLUC #### [facility] [address] [place], [place] [address] Dr. Olga So US CAROTID ART BILon 023 US CAROTID ART NOHELIA EXAMINATION: US [...] RAMONA WAGGONER Date: 2022-10-18 16:24 Normal [facility] XR LSPINE 2_3 VIEWSon 2022 XR LSPINE [...] RAMONA WAGGONER Date: 2022-10-18 14:35 Normal [facility] XR SHOULDER NOHELIA 2V or >on XR [...] RAMONA WAGGONER Date: 2022-10-18 12:15 Normal [facility] CBC AUTO DIFFon 10-17-2022 BASO # 0.1 103/ul Normal 0.0-0.1 [facility] Comment on above: Performed By: #### P OCGLUC #### [facility] [address] [place] [address] Dr. Olga So Basophils/100 WBC (Bld) 0.5 % Normal 0.2-2.0 [facility] Comment on above: Performed By: #### P OCGLUC #### [facility] [address] [address] [address] Olga So EO # 0.3 103/ul Normal 0.0-0.7 [facility] Comment on above: Performed By: #### P OCGLUC #### [facility] [address] [address] [address] Olga So Eosinophils/100 WBC (Bld) 3.0 % Normal 0.9-7.0 [facility] Comment on above: Performed By: #### P OCGLUC #### [facility] [address] [address] [address] Olga So Erythrocyte distribution width (RBC) [Ratio] 13.3 % Normal 11.0-15.0 [facility] Comment on above: Performed By: #### P OCGLUC #### [facility] [address] [place] [address] Dr. Olga So Hematocrit (Bld) [Volume fraction] 32.6 % Critically low 42.0-54.0 [facility] Comment on above: Performed By: #### P OCGLUC #### [facility] [address] [address] [address] Olga So Hemoglobin (Bld) [Mass/Vol] 10.1 g/dL Critically low 14.0-18.0 [facility] Comment on above: Performed By: #### P OCGLUC #### [facility] [address] [address] [address] Olga So IG # 0.04 10e3/ul Critically high 0.00-0.03 [facility] Comment on above: Performed By: #### P OCGLUC #### [facility] [address] [address] [address] Olga So IG % 0.4 % Normal 0.0-0.5 [facility] Comment on above: Performed By: #### P OCGLUC #### [facility] [address] [address] [address] Olga So LYMPH # 2.5 103/ul Normal 1.2-3.8 [facility] Comment on above: Performed By: #### P OCGLUC #### [facility] [address] [address] [address] Olga So Lymphocytes/100 WBC (Bld) 24.3 % Normal 20.5-60.0 [facility] Comment on above: Performed By: #### P OCGLUC #### [facility] [address] [address] [address] Olga So MANUAL DIFF REQ NO Normal [facility] Comment on above: Performed By: #### P OCGLUC #### [facility] [address] [address] [address] Olga So MCH (RBC) [Entitic mass] 30.2 pg Normal 25.9-34.0 [facility] Comment on above: Performed By: #### P OCGLUC #### [facility] [address] [address] [address] Olga So MCHC (RBC) [Mass/Vol] 31.0 g/dL Normal 29.9-35.2 [facility] Comment on above: Performed By: #### P OCGLUC #### [facility] [address] [address] [address] Olga So MCV (RBC) [Entitic vol] 97.6 fL Critically high 80.0-94.0 [facility] Comment on above: Performed By: #### P OCGLUC #### [facility] [address] [address] [address] Olga So MONO # 0.8 103/ul Normal 0.3-0.8 [facility] Comment on above: Performed By: #### P OCGLUC #### [facility] [address] [address] [address] Olga So Monocytes/100 WBC (Bld) 7.3 % Normal 1.7-12.0 [facility] Comment on above: Performed By: #### P OCGLUC #### [facility] [address] [address] [address] Olga So NEUT # 6.7 103/ul Critically high 1.4-6.5 [facility] Comment on above: Performed By: #### P OCGLUC #### [facility] [address] [address] [address] Olga So Neutrophils/100 WBC (Bld) 64.5 % Normal 43.0-75.0 [facility] Comment on above: Performed By: #### P OCGLUC #### [facility] [address] [address] [address] Olga So Platelet mean volume (Bld) [Entitic vol] 9.7 fL Normal 9.5-13.5 [facility] Comment on above: Performed By: #### P OCGLUC #### [facility] [address] [address] [address] Olga So PLT 402 103/ul Normal 150-450 [facility] Comment on above: Performed By: #### P OCGLUC #### [facility] [address] [address] [address] Olga So RBC 3.34 106/ul Critically low 4.70-6.10 [facility] Comment on above: Performed By: #### P OCGLUC #### [facility] [address] [address] [address] Olga So WBC 10.4 103/ul Normal 4.0-11.0 [facility] Comment on above: Performed By: #### P OCGLUC #### [facility] [address] [address] HEAD WO CONon [...] PANDA GURROLA Date: 2022-10-17 19:22 Normal [facility] CULTURE BLOODon 10-17-2022 Microscopic examination of blood, culture Culture Observations: NO GROWTH AT 5 DAYS. Normal [facility] Comment on above: Performed By: #### B LDCX2 ####[facility] [id number] [place] [address]Dr. Olga So Microscopic examination of blood, culture Culture Observations: NO GROWTH AT 5 DAYS. Normal [facility] Comment on above: Performed By: #### B LDCX1 ####[facility] [id number] [place] [address]Dr. Olga So ER URINE PROFILEon 3 Bilirubin Ql (U) Negative Normal NEGATIVE [facility] Comment on above: Performed By: #### U MICRO, ERUR #### [facility] [address] [address] [address] Olga So Clarity (U) CLEAR Normal CLEAR [facility] Comment on above: Performed By: #### U MICRO, ERUR #### [facility] [address] [address] [address] Olga So Color (U) LT. YELLOW Normal YELLOW [facility] Comment on above: Performed By: #### U MICRO, ERUR #### [facility] [address] [place] [address] Dr. Olga ARAGON A micrscopic examination will be performed if indicated. Normal [facility] Comment on above: Performed By: #### U MICRO, ERUR #### [facility] [address] [address] [address] Olga So Glucose Ql (U) Negative Normal NEGATIVE [facility] Comment on above: Performed By: #### U MICRO, ERUR #### [facility] [address] [place] [address] Dr. Olga So Hemoglobin Ql (U) Negative Normal NEGATIVE [facility] Comment on above: Performed By: #### U MICRO, ERUR #### [facility] [address] [place] [address] Dr. Olga So Ketones Ql (U) Negative Normal NEGATIVE [facility] Comment on above: Performed By: #### U MICRO, ERUR #### [facility] [address] [place] [address] Dr. Olga So LEUKOCYTES SMALL Abnormal NEGATIVE [facility] Comment on above: Performed By: #### U MICRO, ERUR #### [facility] [address] [place] [address] Dr. Olga So Nitrite Ql (U) Positive Abnormal NEGATIVE [facility] Comment on above: Performed By: #### U MICRO, ERUR #### [facility] [address] [place] [address] Dr. Olga So pH (U) 5.5 [pH] Normal 5-9 [facility] Comment on above: Performed By: #### U MICRO, ERUR #### [facility] [address] [place] [address] Dr. Olga So SPEC GRAVITY 1.020 Normal 1.005-<=1.[address] [place] [address] Comment on above: Performed By: #### U MICRO, ERUR #### [facility] [address] [address] [address] Olga So UA PROTEIN Negative Normal NEGATIVE/ TRACE [facility] Comment on above: Performed By: #### U MICRO, ERUR #### [facility] [address] [address] [address] Olga So UR MICRO IND INDICATED Normal [facility] Comment on above: Performed By: #### U MICRO, ERUR #### [facility] [address] [address] [address] Olga So Urobilinogen Qn (U) 0.2 {Judson'U}/dL Normal 0.2 - 1. 0 [facility] Comment on above: Performed By: #### U MICRO, ERUR #### [facility] [address] [address] [address] Olga So LACTATE/LACTIC ACIDon 2022 Lactate [Moles/Vol] 0.8 mmol/L Normal 0.4-2.0 [facility] Comment on above: Performed By: #### L ACT ####[facility] [address] [address]. Olga So PROF 14(COMP METB)on 023 Albumin [Mass/Vol] 3.7 g/dL Normal 3.4-5.0 [facility] [place] Comment on above: Performed By: #### C MP, HSTROPN, TSH #### [facility] [address] [place] [address] Dr. Olga So Albumin/Globulin [Mass ratio] 0.7 {ratio} Normal [facility] Comment on above: Performed By: #### C MP, HSTROPN, TSH #### [facility] [address] [address] [address] Olga So ALP [Catalytic activity/Vol] 160 U/L Critically high 46-116 [facility] Comment on above: Performed By: #### C MP, HSTROPN, TSH #### [facility] [address] [address] [address] Olga So ALT [Catalytic activity/Vol] 18 U/L Normal 16-63 [facility] Comment on above: Performed By: #### C HYUN HSTROPN, TSH #### [facility] [address] [place] [address] Dr. Olga So Anion gap [Moles/Vol] 13.2 mmol/L Normal [facility] Comment on above: Performed By: #### C HYUN HSTROPN, TSH #### [facility] [address] [address] [address] Olga So AST [Catalytic activity/Vol] 17 U/L Normal 15-37 [facility] Comment on above: Performed By: #### C HYUN HSTROPN, TSH #### [facility] [address] [place] [address] Dr. Olga So Bilirubin [Mass/Vol] 0.2 mg/dL Normal 0.2-1.0 [facility] Comment on above: Performed By: #### C HYUN HSTROPN, TSH #### [facility] [address] [place] [address] Dr. Olga So Calcium [Mass/Vol] 8.2 mg/dL Critically low 8.5-10.1 [facility] Comment on above: Performed By: #### C HYUN HSTROPN, TSH #### [facility] [address] [place] [address] Dr. Olga So Chloride [Moles/Vol] 106 mmol/L Normal 98-107 [facility] Comment on above: Performed By: #### C HYUN, HSTROPN, TSH #### [facility] [address] [place] [address] Dr. Olga So CO2 [Moles/Vol] 26.3 mmol/L Normal 21.0-32.0 [facility] Comment on above: Performed By: #### C HYUN, HSTROPN, TSH #### [facility] [address] [place] [address] Dr. Olga So Creatinine [Mass/Vol] 2.30 mg/dL Critically high 0.70-1.30 [facility] Comment on above: Performed By: #### C MP, HSTROPN, TSH #### [facility] [address] [address] [address] Olga So EGFR-AF PARAGUAYAN 35 mL/min/1.73m2 Critically low >=60 [facility] Comment on above: Performed By: #### C MP, HSTROPN, TSH #### [facility] [address] [address] [address] Olga So EGFR-NON AF PARAGUAYAN 29 mL/min/1.73m2 Critically low >=60 [facility] Comment on above: Performed By: #### C MP, HSTROPN, TSH #### [facility] [address] [place] [address] Dr. Olga So Globulin (S) [Mass/Vol] 5.2 g/dL Normal [facility] Comment on above: Performed By: #### C MP, HSTROPN, TSH #### [facility] [address] [place] [address] Dr. Olga So Glucose [Mass/Vol] 124 mg/dL Critically high 74-106 [facility] Comment on above: Performed By: #### C MP, HSTROPN, TSH #### [facility] [address] [place] [address] Dr. Olga So Potassium [Moles/Vol] 4.5 mmol/L Normal 3.5-5.1 [facility] Comment on above: Performed By: #### C MP, HSTROPN, TSH #### [facility] [address] [place] [address] Dr. Olga So Protein [Mass/Vol] 8.9 g/dL Critically high 6.4-8.2 [facility] Comment on above: Performed By: #### C MP, HSTROPN, TSH #### [facility] [address] [place] [address] Dr. Olga So Sodium [Moles/Vol] 141 mmol/L Normal 136-145 [facility] [place] Comment on above: Performed By: #### C MP, HSTROPN, TSH #### [facility] [address] [address] [address] Olga So Urea nitrogen [Mass/Vol] 52.0 mg/dL Critically high 7.0-18.0 [facility] Comment on above: Performed By: #### C MP, HSTROPN, TSH #### [facility] [address] [address] [address] Olga So Urea nitrogen/Creatinine [Mass ratio] 22.6 mg/mg Normal [facility] Comment on above: Performed By: #### C MP, HSTROPN, TSH #### [facility] [address] [address] [address] Olga So PROTIMEon 10-17-2022 INR Coag (PPP) [Relative time] 0.95 {INR} Normal [facility] Comment on above: Performed By: #### P TT, PT ####[facility] [address] [address]DrNickolas So INR GUIDELINES SEE BELOW Normal [facility] Comment on above: Result Comment: DEBBIE RED INR: 2.0 - 3.0 CONDITIONS NOT LISTED BELOW 2.5 - 3.5 FOR PROSTHETIC HEART VALVE REPLACEMENT 2.5 - 3.5 RECURRENT THROMBOSIS Performed By: #### P TT, PT ####[facility] [address] [address]DrNickolas So PT Coag (PPP) [Time] 10.1 s Normal 9.0-11.6 [facility] Comment on above: Performed By: #### P TT, PT ####[facility] [address] [address]Dr. Olga So PTTon 10-17-2022 aPTT Coag (Bld) [Time] 29.3 s Normal 22.3-36.2 [facility] Comment on above: Performed By: #### P TT, PT #### [facility] [address] [address] [address] Olga So TROPONIN, HIGH SENSITIVITYon 10-17-2022 HSTROP 5.5 pg/mL Normal 4.0-76.1 [facility] Comment on above: Result Comment: CUT- OFF POINTS HAVE BEEN ESTABLISHED BASED ON THE FOURTH UNIVERSAL DEFINITIONS OF MYOCARDIAL INFARCTION. THE UPPER REFERENCE LIMIT (URL) OF TROPONIN, DEFINED THE 99TH PERCENTILE OF cTnI DISTRIBUTION IN A REFERENCE POPULATION, HAS BEEN CONFIRMED THE DECISION THRESHOLD FOR [place] DIAGNOSIS. Performed By: #### C MP, HSTROPN, TSH #### [facility] [address] [place] [address] Dr. Olga So TSHon 10-17-2022 TSH 0.980 uIU/mL Normal 0.358-3.740 [facility] Comment on above: Performed By: #### C MP, HSTROPN, TSH #### [facility] [address] [place] [address] Dr. Olga So URINE MICROSCOPIC ONLYon BACTERIA SMALL Abnormal NONE SEEN The [facility] Comment on above: Performed By: #### U MICRO, ERUR #### [facility] [address] [place] [address] Dr. Olga So Bacteria identified Cx Nom (U) INDICATED Normal [facility] Comment on above: Performed By: #### U MICRO, ERUR #### [facility] [address] [place] [address] Dr. Olga So CAST NONE SEEN Normal NONE SEEN [facility] Comment on above: Performed By: #### U MICRO, ERUR #### [facility] [address] [place] [address] Dr. Olga So Crystals LM Nom (Urine sed) NONE SEEN Normal NONE SEEN [facility] Comment on above: Performed By: #### U MICRO, ERUR #### [facility] [address] [place] [address] Dr. Olga So Epithelial cells LM Ql (Urine sed) FEW Abnormal NONE SEEN /RARE [facility] Comment on above: Performed By: #### U MICRO, ERUR #### [facility] [address] [place] [address] Dr. Olga So MUCOUS NONE SEEN Normal NONE SEEN [facility] Comment on above: Performed By: #### U MICRO, ERUR #### [facility] [address] [place] [address] Dr. Olga So RBC 2-5 Abnormal 0-2 [facility] Comment on above: Performed By: #### U MICRO, ERUR #### [facility] [address] [address] [address] Olga So WBC 50-75 Abnormal NONE SEEN The [facility] Comment on above: Performed By: #### U MICRO, ERUR #### [facility] [address] [address] [address] Olga So XR CHEST 1 Von [...] by: PANDA GURROLA Date: 2022-10-17 19:24 Normal [facility] XR HIPS NOHELIA 3_4V WO PELVISon [...] by: REILLY MARIA Date: 2022-09-24 16:17 Normal [facility] NM STRESS/REST MULTIon 07-05 NM STRESS/REST MULTI Patient: DEONDRE LR Exam Date: 07/05/2022 : 1955 Gender:M Ordering : DR CYDNEY REDMOND M.D. Admission #: [id number] Family : DR MIKE YUAN M.D. Order #: [id number] CLICK HERE TO VIEW EXAM RADIOLOGY REPORT [...] M.D. on 07/05/2022 at 15:05 Normal [facility] CBC AUTO DIFFon 06-22-2022 BASO # 0.1 103/ul Normal 0.0-0.1 [facility] Comment on above: Performed By: #### C HYUN HSTROPN, TSH #### [facility] [address] [address] [address] Olga So Basophils/100 WBC (Bld) 0.6 % Normal 0.2-2.0 [facility] Comment on above: Performed By: #### C HYUN HSTRKRISHANN, TSH #### [facility] [address] [address] [address] Olga So EO # 0.1 103/ul Normal 0.0-0.7 [facility] Comment on above: Performed By: #### C HYUN HSTROPN, TSH #### [facility] [address] [place] [address] Dr. Olga So Eosinophils/100 WBC (Bld) 1.6 % Normal 0.9-7.0 [facility] Comment on above: Performed By: #### C MP, HSTROPN, TSH #### [facility] [address] [place] [address] Dr. Olga So Erythrocyte distribution width (RBC) [Ratio] 12.3 % Normal 11.0-15.0 [facility] Comment on above: Performed By: #### C MP, HSTROPN, TSH #### [facility] [address] [place] [address] Dr. Olga So Hematocrit (Bld) [Volume fraction] 33.2 % Critically low 42.0-54.0 [facility] Comment on above: Performed By: #### C MP, HSTROPN, TSH #### [facility] [address] [place] [address] Dr. Olga So Hemoglobin (Bld) [Mass/Vol] 11.9 g/dL Critically low 14.0-18.0 [facility] Comment on above: Performed By: #### C MP, HSTROPN, TSH #### [facility] [address] [place] [address] Dr. Olga So IG # 0.03 10e3/ul Normal 0.00-0.03 [facility] Comment on above: Performed By: #### C MP, HSTROPN, TSH #### [facility] [address] [place] [address] Dr. Olga So IG % 0.4 % Normal 0.0-0.5 [facility] Comment on above: Performed By: #### C MP, HSTROPN, TSH #### [facility] [address] [place] [address] Dr. Olga So LYMPH # 2.1 103/ul Normal 1.2-3.8 [facility] Comment on above: Performed By: #### C MP, HSTROPN, TSH #### [facility] [address] [place] [address] Dr. Olga So Lymphocytes/100 WBC (Bld) 26.4 % Normal 20.5-60.0 [facility] Comment on above: Performed By: #### C MP, HSTROPN, TSH #### [facility] [address] [place] [address] Dr. Olga So MANUAL DIFF REQ NO Normal [facility] Comment on above: Performed By: #### C MP, HSTROPN, TSH #### [facility] [address] [place] [address] Dr. Olga So MCH (RBC) [Entitic mass] 32.2 pg Normal 25.9-34.0 [facility] Comment on above: Performed By: #### C MP, HSTROPN, TSH #### [facility] [address] [place] [address] Dr. Olga So MCHC (RBC) [Mass/Vol] 35.8 g/dL Critically high 29.9-35.2 [facility] Comment on above: Performed By: #### C MP, HSTROPN, TSH #### [facility] [address] [place] [address] Dr. Olga So MCV (RBC) [Entitic vol] 90.0 fL Normal 80.0-94.0 [facility] Comment on above: Performed By: #### C MP, HSTROPN, TSH #### [facility] [address] [place] [address] Dr. Olga So MONO # 0.7 103/ul Normal 0.3-0.8 [facility] Comment on above: Performed By: #### C MP, HSTROPN, TSH #### [facility] [address] [place] [address] Dr. Olga So Monocytes/100 WBC (Bld) 8.0 % Normal 1.7-12.0 [facility] Comment on above: Performed By: #### C MP, HSTROPN, TSH #### [facility] [address] [place] [address] Dr. Olga So NEUT # 5.1 103/ul Normal 1.4-6.5 [facility] Comment on above: Performed By: #### C MP, HSTROPN, TSH #### [facility] [address] [address] [address] Olga So Neutrophils/100 WBC (Bld) 63.0 % Normal 43.0-75.0 [facility] Comment on above: Performed By: #### C HYUN, HSTROPN, TSH #### [facility] [address] [address] [address] Olga So Platelet mean volume (Bld) [Entitic vol] 9.6 fL Normal 9.5-13.5 [facility] Comment on above: Performed By: #### C HYUN HSTROPN, TSH #### [facility] [address] [address] [address] Olga So PLT 229 103/ul Normal 150-450 [facility] Comment on above: Performed By: #### C HYUN HSTROPN, TSH #### [facility] [address] [address] [address] Olga So RBC 3.69 106/ul Critically low 4.70-6.10 [facility] Comment on above: Performed By: #### C HYUN HSTROPN, TSH #### [facility] [address] [address] [address] Olga So WBC 8.1 103/ul Normal 4.0-11.0 [facility] Comment on above: Performed By: #### C HYUN, HSTROPN, TSH #### [facility] [address] [address] [address] Olga So GLYCOHEMOGLOBIN A1Con 2022 ADA RECOMMENDATION SEE BELOW Normal [facility] Comment on above: Result Comment: ADA RECOMMENDED LIMIT 4.0 - 6.0 ADA THERAPEUTIC TARGET < 7.0 ACTION SUGGESTED > 7.0 Performed By: #### A 1C ####[facility] [address] [address]Dr. Olga So Glucose [Mass/Vol] 131 mg/dL Normal [facility] Comment on above: Performed By: #### A 1C ####[facility] [address] [address]Dr. Olga So HbA1c (Bld) [Mass fraction] 6.2 % Normal 4.5-6.2 [facility] Comment on above: Performed By: #### A 1C ####[facility] [address] [address]Dr. Olga So MRSA NARES #1on 06-22-2022 MRSA NARES #1 Culture Observations: No growth of MRSA at 48 hours. Normal [facility] Comment on above: Performed By: #### M RSAN1 ####[facility] [address] [address]Dr. Olga So PROF 14(COMP METB)on 023 Albumin [Mass/Vol] 4.0 g/dL Normal 3.4-5.0 [facility] [place] Comment on above: Performed By: #### P OCGLUC #### [facility] [address] [address] [address] Olga So Albumin/Globulin [Mass ratio] 1.0 {ratio} Normal [facility] Comment on above: Performed By: #### P OCGLUC #### [facility] [address] [address] [address] Olga So ALP [Catalytic activity/Vol] 166 U/L Critically high 46-116 [facility] Comment on above: Performed By: #### P OCGLUC #### [facility] [address] [address] [address] Olga So ALT [Catalytic activity/Vol] 24 U/L Normal 16-63 [facility] Comment on above: Performed By: #### P OCGLUC #### [facility] [address] [address] [address] Olga So Anion gap [Moles/Vol] 13.2 mmol/L Normal [facility] Comment on above: Performed By: #### P OCGLUC #### [facility] [address] [address] [address] Olga So AST [Catalytic activity/Vol] 17 U/L Normal 15-37 [facility] Comment on above: Performed By: #### P OCGLUC #### [facility] [address] [address] [address] Olga So Bilirubin [Mass/Vol] 0.3 mg/dL Normal 0.2-1.0 [facility] Comment on above: Performed By: #### P OCGLUC #### [facility] [address] [address] [address] Olga So Calcium [Mass/Vol] 9.0 mg/dL Normal 8.5-10.1 [facility] [place] Comment on above: Performed By: #### P OCGLUC #### [facility] [address] [address] [address] Olga So Chloride [Moles/Vol] 102 mmol/L Normal 98-107 [facility] Comment on above: Performed By: #### P OCGLUC #### [facility] [address] [address] [address] Olga So CO2 [Moles/Vol] 29.0 mmol/L Normal 21.0-32.0 [facility] Comment on above: Performed By: #### P OCGLUC #### [facility] [address] [address] [address] Olga So Creatinine [Mass/Vol] 1.39 mg/dL Critically high 0.70-1.30 [facility] Comment on above: Performed By: #### P OCGLUC #### [facility] [address] [address] [address] Olga So EGFR-AF PARAGUAYAN >60 Normal >=60 [facility] Comment on above: Performed By: #### P OCGLUC #### [facility] [address] [address] [address] Olga So EGFR-NON AF PARAGUAYAN 51 mL/min/1.73m2 Critically low >=60 [facility] Comment on above: Performed By: #### P OCGLUC #### [facility] [address] [address] [address] Olga So Globulin (S) [Mass/Vol] 4.0 g/dL Normal [facility] Comment on above: Performed By: #### P OCGLUC #### [facility] [address] [address] [address] Olga So Glucose [Mass/Vol] 136 mg/dL Critically high 74-106 [facility] Comment on above: Performed By: #### P OCGLUC #### [facility] [address] [address] [address] Olga So Potassium [Moles/Vol] 4.2 mmol/L Normal 3.5-5.1 [facility] Comment on above: Performed By: #### P OCGLUC #### [facility] [address] [address] [address] Olga So Protein [Mass/Vol] 8.0 g/dL Normal 6.4-8.2 [facility] [place] Comment on above: Performed By: #### P OCGLUC #### [facility] [address] [address] [address] Olga So Sodium [Moles/Vol] 140 mmol/L Normal 136-145 [facility] [place] Comment on above: Performed By: #### P OCGLUC #### [facility] [address] [address] [address] Olga So Urea nitrogen [Mass/Vol] 30.0 mg/dL Critically high 7.0-18.0 [facility] Comment on above: Performed By: #### P OCGLUC #### [facility] [address] [address] [address] Olga So Urea nitrogen/Creatinine [Mass ratio] 21.6 mg/mg Normal [facility] Comment on above: Performed By: #### P OCGLUC #### [facility] [address] [address] [address] Olga So POINT OF CARE GLUCOSEon 0 Glucose [Mass/Vol] 114 mg/dL Critically high 74-106 [facility] Comment on above: Performed By: #### P OCGLUC #### [facility] [address] [address] [address] SHOULDER LT WO CONon 11-2 CT SHOULDER LT WO CON EXAMINATION: CT [...] by: REILLY MARIA Date: 2022-04-23 19:53 Normal [facility] MRI SHOULDER RT WO CONon MRI [...] REILLY MARIA Date: 2022-04-23 20:10 Normal [facility] POINT OF CARE GLUCOSEon 01-26 Glucose [Mass/Vol] 129 mg/dL Critically high 74-106 T he [facility] Comment on above: Performed By: #### P OCGLUC ####[facility] [address] [place], [place] [address]TzDr. Olga So Covid-19 PCR ([facility])on 01-25 SARS-CoV-2 (COVID-19) RNA JULISSA+probe Ql (Unsp spec) Not detected Normal NOT DETECTED [facility] Comment on above: Result Comment: This test is not yet approved or cleared by the [place] FDA. When there are no FDA-approved or cleared tests available, and other criteria are met, FDA can make tests available under an emergency access mechanism called an Emergency Use Authorization (EUA). The EUA for this test is supported by the [place] of Health and Human Service's (HHS's) declaration [...] SARS-CoV-2. Performed By: #### P OCGLUC #### [facility] [address] [place], [place] [address] Dr. Olga So XR RIBS LEFT INCLUDE [...] by: Bret Bae 12/06/21 Final result Normal [facility] Minimally displaced fracture of the proximal left humerus [facility] EXAMINATION: XRAY VIEWS OF [...] airspace infiltrate. No pneumothorax or pleural effusion. [facility] Bret Bae - 12/06/2021 [...] displaced fracture of the proximal left humerus [facility] [employer] Phone: Radiology Study observation (narrative) [employer] Phone: XR SHOULDER LEFT (MIN 2 VIEW [...] by: Bret Bae 12/06/21 Final result Normal [facility] Minimally displaced fracture of the proximal humerus at the level of the distal portion of the humeral prosthesis. [facility] EXAMINATION: XRAY VIEWS OF THE LEFT SHOULDER 12/06/2021 2:13 pm COMPARISON: None. HISTORY: ORDERING SYSTEM PROVIDED HISTORY: pain TECHNOLOGIST PROVIDED HISTORY: pain FINDINGS: The patient has undergone left shoulder arthroplasty. There is a minimally displaced fracture of the proximal humerus at the level of the distal portion of the humerus prosthesis. [facility] Bret Bae - 12/06/2021 [...] the distal portion of the humeral prosthesis. [facility] Phone: Radiology Study observation (narrative) [facility] Phone: XR SHOULDER LEFT (MIN 2 VIEW S)Ordered By: Bret Bae on 12-06-2021 [facility] [employer] Phone: POINT OF CARE GLUCOSEon 10-25 Glucose [Mass/Vol] 132 mg/dL Critically high 74-106 [facility] Comment on above: Performed By: #### P OCGLUC #### [facility] [address] [place] [address] Dr. Olga So Basic Metabolic Panelon 08-25 Anion gap [Moles/Vol] 12 mmol/L 9 - 17 mmol/L [facility] Calcium [Mass/Vol] 8.0 mg/dL Low 8.6 - 10. 4 mg/dL [facility] Chloride [Moles/Vol] 107 mmol/L 98 - 10 7 mmol/L [facility] CO2 [Moles/Vol] 22 mmol/L 20 - 31 mmol/L [facility] Creatinine [Mass/Vol] 1.16 mg/dL 0.70 - 1.20 mg/dL [facility] GFR >60 >60 mL/min [facility] GFR Non- >60 >60 mL/min [facility] Glucose [Mass/Vol] 171 mg/dL High 70 - 99 mg/dL [facility] Interpretation and review of laboratory results Abnormal [facility] Potassium [Moles/Vol] 4.0 mmol/L 3.7 - 5.3 mmol/L [facility] Sodium [Moles/Vol] 141 mmol/L 135 - 144 mmol/L [facility] Urea nitrogen (BldV) [Mass/Vol] 14 mg/dL 8 - 23 mg/dL [facility] Urea nitrogen/Creatinine (Bld) [Mass ratio] 12 [facility] Basic Metabolic Profon 09-06 (cont.) Normal [facility] Comment on above: Result Comment: Aver age GFR for 60-69 years old: 85 mL/min/1.73sq m Chronic Kidney Disease: <60 mL/min/1.73sq m Kidney failure: <15 mL/min/1.73sq m eGFR calculated using average adult body mass. Additional eGFR calculator available at: http://www.[employer]/multiple_crcl_2012.htm Performed By: #### B HYUN, #### [facility] [address] [place] [address] Family Practice Medical Doctor: Ramona Hurd MD Anion gap [Moles/Vol] 12 mmol/L Normal - [facility] Comment on above: Performed By: #### B HYUN, #### [facility] [facility] [address] [place] [address] Family Practice Medical Doctor: Ramona Hurd MD BUN/CRE Ratio 12 Normal 02-13 [facility] Comment on above: Performed By: #### B HYUN, #### [facility] [address] [place] [address] Family Practice Medical Doctor: Ramona Hurd MD Calcium [Mass/Vol] 8.0 mg/dL Low 8.6-10.4 [facility] Comment on above: Performed By: #### B HYUN, HH #### [facility] [address] [place], [place] [id number] Family Practice Medical Doctor: Ramona Hurd MD Chloride [Moles/Vol] 107 mmol/L Normal 98-107 [facility] Comment on above: Performed By: #### B HYUN, HH #### [facility] [address] [place], [place] [id number] Family Practice Medical Doctor: Ramona Hurd MD CO2 [Moles/Vol] 22 mmol/L Normal 20-31 [facility] Comment on above: Performed By: #### B HYUN, HH #### [facility] [address] [place], [place] [id number] Family Practice Medical Doctor: Ramona Hurd MD Creatinine [Mass/Vol] 1.16 mg/dL Normal 0.70-1.20 [facility] Comment on above: Performed By: #### B HYUN, HH #### [facility] [address] [place], [place] [id number] Family Practice Medical Doctor: Ramona Hurd MD GFR, Amer >60 Normal >60 [facility] Comment on above: Performed By: #### B HYUN, HH #### [facility] [address] [place], [place] [id number] Family Practice Medical Doctor: Ramona Hurd MD GFR,non Amer >60 Normal >60 [facility] Comment on above: Performed By: #### B HYUN, HH #### [facility] [address] [place], [place] [id number] Family Practice Medical Doctor: Ramona Hurd MD Glucose [Mass/Vol] 171 mg/dL High 70-99 [facility] Comment on above: Performed By: #### B HYUN, HH #### [facility] [address] [place], [place] [id number] Family Practice Medical Doctor: Ramona Hurd MD Potassium [Moles/Vol] 4.0 mmol/L Normal 3.7-5.3 [facility] Comment on above: Performed By: #### B HYUN, HH #### [facility] [address] [place] [address] Family Practice Medical Doctor: Ramona Hurd MD Sodium [Moles/Vol] 141 mmol/L Normal 135-144 [facility] Comment on above: Performed By: #### B HYUN, HH #### [facility] [address] [place] [address] Family Practice Medical Doctor: Ramona Hurd MD Staging: Normal [facility] Comment on above: Result Comment: Stag e 1: Some kidney damage normal GFR Stage 2: Mild kidney damage GFR 60-89 Stage 3: Moderate kidney damage GFR 30-59 Stage 4: Severe kidney damage GFR 15-29 Stage 5: Severe kidney damage GFR <15 ESRD - chronic treatment by dialysis or transplant Performed By: #### B HYUN, HH #### [address] [place] [address] Family Practice Medical Doctor: Ramona Hurd MD Urea nitrogen [Mass/Vol] 14 mg/dL Normal 8-23 [facility] Comment on above: Performed By: #### B HYUN, #### [address] [place] [address] Family Practice Medical Doctor: Ramona Hurd MD Glucose, Whole Bloodon 09-06 Glucose [Mass/Vol] 172 mg/dL High 74 - 100 mg/dL [facility] Interpretation and review of laboratory results Abnormal [facility] Glucose [Mass/Vol] 156 mg/dL High 74 - 100 mg/dL [facility] Interpretation and review of laboratory results Abnormal [facility] Hemoglobin and Hematocriton 09-06-2021 Hematocrit (Bld) [Volume fraction] 27.9 % Low 40.7 - 50.3 % [facility] Hemoglobin.gastrointes tinal spec 1 Ql (Stl) 8.9 g/dL Low 13.0 - 17.0 g/dL [facility] Interpretation and review of laboratory results Abnormal [facility] Hgb/Hcton 09-06-2021 Hematocrit (Bld) [Volume fraction] 27.9 % Low 40.7-50.3 [facility] Comment on above: Performed By: #### B KALIN PURVIS #### [facility] [address] [place] [address] Family Practice Medical Doctor: Ramona Hurd MD Hemoglobin (Bld) [Mass/Vol] 8.9 g/dL Low 13.0-17.0 [facility] Comment on above: Performed By: #### B KALIN PURVIS #### [facility] [address] [place] [address] Family Practice Medical Doctor: Ramona Hurd MD Laboratory - Chemistry and C hemistry - challengeon 09-06-2021 GFR/1.73 sq M.predicted MDRD (S/P/Bld) [Vol rate/Area] [facility] Comment on above: Average GFR for 60-6 9 years old: 85 mL/min/1.73sq m Chronic Kidney Disease: <60 mL/min/1.73sq m Kidney failure: <15 mL/min/1.73sq m eGFR calculated using average adult body mass. Additional eGFR calculator available at: http://www.[employer].Shopnation/multiple_crcl_2012.htm Stage 1: Some kidney damage normal GFR Stage 2: Mild kidney damage GFR 60-89 Stage 3: Moderate kidney damage GFR 30-59 Stage 4: Severe kidney damage GFR 15-29 Stage 5: Severe kidney damage GFR <15 ESRD - chronic treatment by dialysis or transplant VL DUP LOWER EXTREMITY VENOU S RIGHTon 09-06-2021 Tad Mack MD - 09/06/2021 [facility] Vascular Lower Extremities DVT Study Procedure Patient Name GERONIMO Koroma Date of Study 09/06/2021 Date of 1955 Gender Male Age 66 year(s) Race Room Number 0302 Corporate ID [id number] # Patient Acct [id number] # MR # [id number] [employer] Zunilda Morales RVT Interpreting Physician Tad Mack Referring Shmuel Wyatt, Referring Physician Nurse AFIA Practitioner Additional Comments Results were faxed to the [facility] 09/06/2021 @ 1433. Procedure Type of Study: Veins: Lower Extremities DVT Study, Venous Scan Lower Right. Indications for Study:Calf tenderness. Patient Status:In Patient. Technical Quality:Adequate visualization. Comments:[facility] s real time imaging utilizing B-Mode, color [...] !Phasic! ! ! + --------+------+---- --+ + [facility] Phone: Radiology Study observation (narrative) [facility] Phone: VL DUP LOWER EXTREMITY VENOU S RIGHTOrdered By: Tad Mack on 09-06-2021 [facility] Phone: Glucose, Whole Bloodon 09-05 Glucose [Mass/Vol] 199 mg/dL High 74 - 100 mg/dL [facility] Interpretation and review of laboratory results Abnormal [facility] Glucose [Mass/Vol] 204 mg/dL High 74 - 100 mg/dL [facility] Interpretation and review of laboratory results Abnormal [facility] Glucose [Mass/Vol] 127 mg/dL High 74 - 100 mg/dL [facility] Interpretation and review of laboratory results Abnormal [facility] XR SHOULDER LEFT 1 VWon 04-1 XR SHOULDER LEFT 1 VW EXAMINATION: ONE [...] Luc Michele MD 09/05/21 Final result Normal [facility] 1. Postoperative changes related to recent reverse left shoulder arthroplasty hardware placement. 2. Left basilar airspace disease and small left-sided pleural effusion. [facility]SOL[facility] EXAMINATION: ONE XRAY VIEW OF THE [...] airspace disease and small left-sided pleural effusion. [facility] Luc Michele MD - 09/05/2021 EXAMINATION: [...] airspace disease and small left-sided pleural effusion. [facility]: Radiology Study observation (narrative) [facility] Phone: XR SHOULDER LEFT 1 VWOrdered By: Luc Michele on 09-05-2021 [facility] Work Phone: Glucose, Whole Bloodon 08-22 Glucose [Mass/Vol] 109 mg/dL High 74 - 100 mg/dL [facility] Interpretation and review of laboratory results Abnormal [facility] Hemoglobin A1Con 08-03-2021 Glucose [Mass/Vol] 146 mg/dL Normal [facility] Comment on above: Result Comment: The ADA and AACC recommend providing the estimated average glucose result to permit better patient understanding of their HBA1c result. Performed By: #### G LYHGB #### [address] [id number] Family Practice Medical Doctor: David Ge MD #### CDP, CP #### [address] [place] [address] Family Practice Medical Doctor: Ramona Hurd MD HbA1c (Bld) [Mass fraction] 6.7 % High 4.0-6.0 [facility] Comment on above: Performed By: #### G LYHGB #### [address] [place] [place] [address] Family Practice Medical Doctor: David Ge MD #### CDP, CP #### [facility] [address] [place] [address] [place] [address] Family Practice Medical Doctor: Ramona Hurd MD MRSA, DNA, Nasalon MRSA, DNA, Nasal Negative Normal NEG [facility] Comment on above: Result Comment: NEGA TIVE: MRSA DNA not detected by nucleic acid amplification. Results should be used as an adjunct to nosocomial control efforts to identify patients needing enhanced precautions. The test is not intended to identify patients with staphylococcal infections. Results should not be used to guide or monitor treatment for MRSA infections. Performed By: #### M RSANO #### [address] [address] Family Practice Medical Doctor: aDvid Ge MD [address] [place] [address] Family Practice Medical Doctor: Ramona Hurd MD CBC with Diffon 08-02-2021 Abs. Basophil 0.05 k/uL Normal 0.00-0.20 [facility] Comment on above: Performed By: #### G LYHGB #### [address] [address] Family Practice Medical Doctor: David Ge MD #### CDP, CP #### [address] [place] [id number] Family Practice Medical Doctor: Ramona Hurd MD Abs.Imm.Granulocyte 0.03 k/uL Normal 0.00-0.30 [facility] Comment on above: Performed By: #### Libert[place] LYHGB #### [address] [address] Family Practice Medical Doctor: David Ge MD #### CDP, CP #### [address] [place] [id number] Family Practice Medical Doctor: Ramona Hurd MD Abs.Neutrophil (Seg) 4.11 k/uL Normal 1.50-8.10 [facility] Comment on above: Performed By: #### G LYHGB #### [address] [address] Family Practice Medical Doctor: David Ge MD #### CDP, CP #### [address] [place] [address] Family Practice Medical Doctor: Ramona Hurd MD Basophils/100 WBC (Bld) 1 % Normal 0-2 [facility] Comment on above: Performed By: #### G LYHGB #### [address] [id number] Family Practice Medical Doctor: David Ge MD #### CDP, CP #### [facility] [address] [place] [address] [address] [place] [id number] Family Practice Medical Doctor: Ramona Hurd MD Eosinophils (Bld) [#/Vol] 0.36 10*3/uL Normal 0.00-0.44 [facility] Comment on above: Performed By: #### G LYHGB #### [place] [address] Family Practice Medical Doctor: David eG MD #### CDP, CP #### [address] [place] [id number] ( Family Practice Medical Doctor: Rmaona Hurd MD Eosinophils/100 WBC (Bld) 5 % High 1-4 [facility] Comment on above: Performed By: #### G LYHGB #### [place] [address] Family Practice Medical Doctor: David Ge MD #### CDP, CP #### [address] [place] [id number] ( Family Practice Medical Doctor: Ramona Hurd MD Erythrocyte distribution width (RBC) [Ratio] 12.6 % Normal 11.8-14.4 [facility] Comment on above: Performed By: #### G LYHGB #### [place] [address] Family Practice Medical Doctor: David Ge MD #### CDP, CP #### [address] [place] [id number] ( Family Practice Medical Doctor: Ramona Hurd MD Hematocrit (Bld) [Volume fraction] 37.7 % Low 40.7-50.3 [facility] Comment on above: Performed By: #### G LYHGB #### [facility] [address] [place] [address] Family Practice Medical Doctor: David Ge MD #### CDP, CP #### [facility] [address] [place], [place] [id number] Family Practice Medical Doctor: Ramona Hurd MD Hemoglobin (Bld) [Mass/Vol] 12.3 g/dL Low 13.0-17.0 [facility] Comment on above: Performed By: #### G LYHGB #### [address] [address] Family Practice Medical Doctor: David Ge MD #### CDP, CP #### [facility] [address] [place] [address] [address]. [place] [id number] Family Practice Medical Doctor: Ramona Hurd MD Immature granulocytes/100 WBC (Bld) 0 % Normal 0 [facility] Comment on above: Performed By: #### G LYHGB #### [address] [address] Family Practice Medical Doctor: David Ge MD #### CDP, CP #### [facility] [address] [place] [id number] Family Practice Medical Doctor: Ramona Hurd MD Lymphocytes (Bld) [#/Vol] 2.33 10*3/uL Normal 1.10-3.70 [facility] Comment on above: Performed By: #### G LYHGB #### [address] [address] Family Practice Medical Doctor: David Ge MD #### CDP, CP #### [facility] [address] [place], [place] [id number] Family Practice Medical Doctor: Ramona Hurd MD Lymphocytes/100 WBC (Bld) 31 % Normal 24-43 [facility] Comment on above: Performed By: #### G LYHGB #### [address] [place] [address] Family Practice Medical Doctor: David Ge MD #### CDP, CP #### [facility] [address] [place] [address] Dr. [place], [place] [id number] Family Practice Medical Doctor: Ramona Hurd MD MCH (RBC) [Entitic mass] 32.5 pg Normal 25.2-33.5 [facility] Comment on above: Performed By: #### G LYHGB #### [address] [address] Family Practice Medical Doctor: David Ge MD #### CDP, CP #### [facility] [address] [place] [address] [place]. [place] [id number] Family Practice Medical Doctor: Ramona Hurd MD MCHC (RBC) [Mass/Vol] 32.6 g/dL Normal 28.4-34.8 [facility] Comment on above: Performed By: #### G LYHGB #### [address] [address] Family Practice Medical Doctor: David Ge MD #### CDP, CP #### [facility] [address] [place] [address] Dr. [place] [id number] Family Practice Medical Doctor: Ramona Hurd MD MCV (RBC) [Entitic vol] 99.5 fL Normal 82.6-102.9 [facility] Comment on above: Performed By: #### G LYHGB #### [address] [place] [address] Family Practice Medical Doctor: David Ge MD #### CDP, CP #### [address] [place] [address] Family Practice Medical Doctor: Ramona Hurd MD Monocytes (Bld) [#/Vol] 0.67 10*3/uL Normal 0.10-1.20 [facility] Comment on above: Performed By: #### G LYHGB #### [address] [address] Family Practice Medical Doctor: David Ge MD #### CDP, CP #### [facility] [address] [place], [place] [id number] Family Practice Medical Doctor: Ramona Hurd MD Monocytes/100 WBC (Bld) 9 % Normal 3-12 [facility] Comment on above: Performed By: #### G LYHGB #### [address] [address] Family Practice Medical Doctor: David Ge MD #### CDP, CP #### [facility] [address] [place], [place] 0473783 Family Practice Medical Doctor: Ramona Hurd MD Neutrophil (Seg) 54 % Normal 36-65 [facility] Comment on above: Performed By: #### G LYHGB #### [address] [address] Family Practice Medical Doctor: David Ge MD #### CDP, CP #### [facility] [address] [place], [place] [id number] Family Practice Medical Doctor: Ramona Hurd MD NRBC Automated 0.0 per 100 WBC Normal 0.0 [facility] Comment on above: Performed By: #### G LYHGB #### [address] [address] Family Practice Medical Doctor: David Ge MD #### CDP, CP #### [facility] [address] [place] [address] Family Practice Medical Doctor: Ramona Hurd MD Platelet mean volume (Bld) [Entitic vol] 10.3 fL Normal 8.1-13.5 [facility] Comment on above: Performed By: #### G LYHGB #### [address] [address] Family Practice Medical Doctor: David Ge MD #### CDP, CP #### [facility] [address] [place] [address] Family Practice Medical Doctor: Ramona Hurd MD Platelets (Bld) [#/Vol] 220 10*3/uL Normal 138-453 [facility] Comment on above: Performed By: #### G LYHGB #### [address] [place] [address] Family Practice Medical Doctor: David Ge MD #### CDP, CP #### [facility] [address] [place] [address] Family Practice Medical Doctor: Ramona Hurd MD RBC (Bld) [#/Vol] 3.79 10*6/uL Low 4.21-5.77 [facility] Comment on above: Performed By: #### G LYHGB #### [address] [place] [address] Family Practice Medical Doctor: David Ge MD #### CDP, CP #### [facility] [address] [place] [address] Family Practice Medical Doctor: Ramona Hurd MD WBC (Bld) [#/Vol] 7.6 10*3/uL Normal 3.5-11.3 [facility] Comment on above: Performed By: #### G LYHGB #### [address] [place] [address] Family Practice Medical Doctor: David Ge MD #### CDP, CP #### [facility] [address] [place] [address] Family Practice Medical Doctor: Ramona Hurd MD Comp Metabolic Profon 2021 (cont.) Normal [facility] Comment on above: Result Comment: Aver age GFR for 60-69 years old: 85 mL/min/1.73sq m Chronic Kidney Disease: <60 mL/min/1.73sq m Kidney failure: <15 mL/min/1.73sq m eGFR calculated using average adult body mass. Additional eGFR calculator available at: http://www.[employer]/multiple_crcl_2012.htm Performed By: #### G LYHGB #### [address] [place] [address] Family Practice Medical Doctor: David Ge MD #### CDP, CP #### [address] [place], [place] [id number] Family Practice Medical Doctor: Ramona Hurd MD Albumin [Mass/Vol] 4.7 g/dL Normal 3.5-5.2 [facility] Comment on above: Performed By: #### G LYHGB #### [address] [address] Family Practice Medical Doctor: David Ge MD #### CDP, CP #### [address] [place] [address] Family Practice Medical Doctor: Ramona Hurd MD Albumin/Glob Ratio 1.6 Normal 1.0-2.5 [facility] Comment on above: Performed By: #### G LYHGB #### [address] [address] Family Practice Medical Doctor: David Ge MD #### CDP, CP #### [address] [place], [place] 1680283 Family Practice Medical Doctor: Ramona Hurd MD Alkaline Phos 154 U/L High 40-129 [facility] Comment on above: Performed By: #### G LYHGB #### [address] [address] Family Practice Medical Doctor: David Ge MD #### CDP, CP #### [address] [place] [address] Family Practice Medical Doctor: Ramona Hurd MD ALT [Catalytic activity/Vol] 24 U/L Normal 5-41 [facility] Comment on above: Performed By: #### G LYHGB #### [facility] [address] [place] [address] Family Practice Medical Doctor: David Ge MD #### CDP, CP #### [facility] [address] [place], [place] [id number] Family Practice Medical Doctor: Ramona Hurd MD Anion gap [Moles/Vol] 12 mmol/L Normal 9-17 [facility] Comment on above: Performed By: #### G LYHGB #### [address] [address] Family Practice Medical Doctor: David Ge MD #### CDP, CP #### [facility] [address] [place] [id number] Family Practice Medical Doctor: Ramona Hurd MD AST [Catalytic activity/Vol] 20 U/L Normal <40 [facility] Comment on above: Performed By: #### G LYHGB #### [address] [address] Family Practice Medical Doctor: David Ge MD #### CDP, CP #### [facility] [address] [place], [place] [id number] Family Practice Medical Doctor: Ramona Hurd MD Bilirubin [Mass/Vol] 0.30 mg/dL Normal 0.3-1.2 [facility] Comment on above: Performed By: #### G LYHGB #### [address] [address] Family Practice Medical Doctor: David Ge MD #### CDP, CP #### [facility] [address] [place], [place] 0996883 Family Practice Medical Doctor: Ramona Hurd MD BUN/CRE Ratio 22 High 9-20 [facility] Comment on above: Performed By: #### G LYHGB #### [address] [address] Family Practice Medical Doctor: David Ge MD #### CDP, CP #### [facility] [address] [place] [address] [place]. [place], [place] 4483483 Family Practice Medical Doctor: Ramona Hurd MD Calcium [Mass/Vol] 9.6 mg/dL Normal 8.6-10.4 [facility] Comment on above: Performed By: #### G LYHGB #### [address] [address] Family Practice Medical Doctor: David Ge MD #### CDP, CP #### [address] [place], [place] 3583583 Family Practice Medical Doctor: Ramona Hurd MD Chloride [Moles/Vol] 103 mmol/L Normal 98-107 [facility] Comment on above: Performed By: #### G LYHGB #### [address] [address] Family Practice Medical Doctor: David Ge MD #### CDP, CP #### [address] [place], [place] [id number] Family Practice Medical Doctor: Ramona Hurd MD CO2 [Moles/Vol] 24 mmol/L Normal 20-31 [facility] Comment on above: Performed By: #### G LYHGB #### [address] [address] Family Practice Medical Doctor: David Ge MD #### CDP, CP #### [address] [place], [place] 6844383 Family Practice Medical Doctor: Ramona Hurd MD Creatinine [Mass/Vol] 1.27 mg/dL High 0.70-1.20 [facility] Comment on above: Performed By: #### G LYHGB #### [address] [address] Family Practice Medical Doctor: David Ge MD #### CDP, CP #### [facility] [address] [place], [place] [id number] Family Practice Medical Doctor: Ramona Hurd MD GFR, Amer >60 Normal >60 [facility] Comment on above: Performed By: #### G LYHGB #### [address] [address] Family Practice Medical Doctor: David Ge MD #### CDP, CP #### [facility] [address] [place], [place] [id number] Family Practice Medical Doctor: Ramona Hurd MD GFR,non Amer 57 mL/min Low >60 [facility] Comment on above: Performed By: #### G LYHGB #### [address] [address] Family Practice Medical Doctor: David Ge MD #### CDP, CP #### [facility] [address] [place] [address] [place] [place] [id number] Family Practice Medical Doctor: Ramona Hurd MD Glucose [Mass/Vol] 155 mg/dL High 70-99 [facility] Comment on above: Performed By: #### G LYHGB #### [address] [address] Family Practice Medical Doctor: David Ge MD #### CDP, CP #### [facility] [address] [place], [place] 2929383 Family Practice Medical Doctor: Ramona Hurd MD Potassium [Moles/Vol] 4.9 mmol/L Normal 3.7-5.3 [facility] Comment on above: Performed By: #### G LYHGB #### [address] [address] Family Practice Medical Doctor: David Ge MD #### CDP, CP #### [address] [place], [place] [address]2083 Family Practice Medical Doctor: Ramona Hurd MD Protein [Mass/Vol] 7.6 g/dL Normal 6.4-8.3 [facility] Comment on above: Performed By: #### G LYHGB #### [address] [address] Family Practice Medical Doctor: David Ge MD #### CDP, CP #### [address] [place], [place] 6445183 Family Practice Medical Doctor: Ramona Hurd MD Sodium [Moles/Vol] 139 mmol/L Normal 135-144 [facility] Comment on above: Performed By: #### G LYHGB #### [address] [address] Family Practice Medical Doctor: David Ge MD #### CDP, CP #### [address] [place] [address] Family Practice Medical Doctor: Ramona Hurd MD Staging: Normal [facility] Comment on above: Result Comment: Stag e 1: Some kidney damage normal GFR Stage 2: Mild kidney damage GFR 60-89 Stage 3: Moderate kidney damage GFR 30-59 Stage 4: Severe kidney damage GFR 15-29 Stage 5: Severe kidney damage GFR <15 ESRD - chronic treatment by dialysis or transplant Performed By: #### G LYHGB #### [address] [address] Family Practice Medical Doctor: David Ge MD #### CDP, CP #### [address] [place] [address] Family Practice Medical Doctor: Ramona Hurd MD Urea nitrogen [Mass/Vol] 28 mg/dL High 8-23 [facility] Comment on above: Performed By: #### G LYHGB #### [address] [address] Family Practice Medical Doctor: David Ge MD #### CDP, CP #### [facility] [address] [place] [address] Family Practice Medical Doctor: Ramnoa Hurd MD MRSA, DNA, Nasalon Specimen Description .NASAL SWAB Normal [facility] Comment on above: Performed By: #### M RSANO #### [facility] [address] [place] [address] Family Practice Medical Doctor: David Ge MD [facility] [address] [place] [address] Family Practice Medical Doctor: Ramona Hurd MD XR CHEST (2 VW)on [...] by: Bret Bae 08/02/21 Final result Normal [facility] No acute cardiopulmonary findings. [facility] EXAMINATION: TWO XRAY VIEWS OF THE CHEST 08/02/2021 1:05 pm COMPARISON: None. HISTORY: ORDERING SYSTEM PROVIDED HISTORY: pre-op TECHNOLOGIST PROVIDED HISTORY: pre-op FINDINGS: No acute airspace infiltrate. No pneumothorax or pleural effusion. The cardiomediastinal silhouette is within normal limits. Vertebroplasty changes in the thoracic spine. [facility] Bret Bae - 08/02/2021 EXAMINATION: TWO XRAY VIEWS OF THE CHEST 08/02/2021 1:05 pm COMPARISON: None. HISTORY: ORDERING SYSTEM PROVIDED HISTORY: pre-op TECHNOLOGIST PROVIDED HISTORY: pre-op FINDINGS: No acute airspace infiltrate. No pneumothorax or pleural effusion. The cardiomediastinal silhouette is within normal limits. Vertebroplasty changes in the thoracic spine. IMPRESSION: No acute cardiopulmonary findings. [facility] Phone: Radiology Study observation (narrative) [facility] Phone: XR CHEST (2 VW)Ordered By: Marvin Bae on 08-02-2021 [facility] Phone: CBCOrdered By: Adjmegi Born on 12-08-2020 Hematocrit (Bld) [Volume fraction] 27.4 % Low 42.0 - 52.0 % [facility] Phone: Hemoglobin.gastrointes tinal spec 1 Ql (Stl) 9.1 g/dL Low 14.0 - 18.0 g/dL [facility] Phone: Interpretation and review of laboratory results Abnormal [facility] Phone: MCH (RBC) [Entitic mass] 32.7 pg High 27.0 - 31.3 pg [facility] Phone: MCHC (RBC) [Mass/Vol] 33.2 % 33.0 - 37.0 % [facility] Phone: MCV (RBC) [Entitic vol] 98.3 fL 80.0 - 100.0 fL [facility] Phone: Platelet distribution width (Bld) [Ratio] 13.2 % 11.5 - 14.5 % [facility] Phone: Platelets (Bld) [#/Vol] 173 10*3/uL 130 - 400 K/uL [facility] Phone: RBC (Bld) [#/Vol] 2.78 10*6/uL Low [facility] Phone: WBC (Bld) [#/Vol] 12.7 10*3/uL High 4.8 - 10.8 K/uL [facility] Phone: CBC With Platelet No Differe ntialon 12-08-2020 Erythrocyte distribution width (RBC) [Ratio] 13.2 % Normal 11.5-14.5 [facility] Comment on above: Performed By: #### P GLU #### [facility] [address] [place] [address] Hematocrit (Bld) [Volume fraction] 27.4 % Low 42.0-52.0 [facility] Comment on above: Performed By: #### P GLU #### [facility] [address] [place] [address] Hemoglobin (Bld) [Mass/Vol] 9.1 g/dL Low 14.0-18.0 [facility] Comment on above: Performed By: #### P GLU #### [facility] [address] [place] [address] MCH (RBC) [Entitic mass] 32.7 pg Critically high 27.0-31.3 [facility] Comment on above: Performed By: #### P GLU #### [facility] [address] [place] [address] MCHC 33.2 % Normal 33.0-37.0 [facility] Comment on above: Performed By: #### P GLU #### [facility] [address] [place] [address] MCV (RBC) [Entitic vol] 98.3 fL Normal 80.0-100.0 [facility] Comment on above: Performed By: #### P GLU #### [facility] [address] [place] [address] Platelets (Bld) [#/Vol] 173 10*3/uL Normal 130-400 [facility] Comment on above: Performed By: #### P GLU #### [facility] [address] [place] [address] RBC (Bld) [#/Vol] 2.78 10*6/uL Low 4.70-6.10 [facility] Comment on above: Performed By: #### P GLU #### [facility] [address] [place] [address] WBC (Bld) [#/Vol] 12.7 10*3/uL Critically high 4.8-10.8 [facility] Comment on above: Performed By: #### P GLU #### [facility] [address] [place] [address] No Panel InformationOrdered By: Hernandez Tovar on 12-08-2020 [facility] Phone: POCT Glucoseon 12-08-2020 Glucose [Mass/Vol] 145 mg/dL Critically high 60-115 [facility] Comment on above: Performed By: #### P GLU #### [facility] [address] [place] [address] POC Performed on ACCU-CHEK Normal [facility] Comment on above: Result Comment: Trev galdamez RN or MD Performed By: #### P GLU #### [facility] [address] [place] [address] Glucose [Mass/Vol] 119 mg/dL Critically high 60-115 M [facility] Comment on above: Performed By: #### P GLU #### [facility] [address] [place] [address] POC Performed on ACCU-CHEK Normal [facility] Comment on above: Result Comment: Trev galdamez RN or MD Performed By: #### P GLU #### [facility] [address] [place] [address] Glucose [Mass/Vol] 150 mg/dL Critically high 60-115 [facility] Comment on above: Performed By: #### P GLU #### [facility] [address] [place] [address] POC Performed on ACCU-CHEK Normal [facility] Comment on above: Performed By: #### P GLU #### [facility] [address] [place] [address] POCT GlucoseOrdered By: Unkn own Result on 12-08-2020 Glucose [Mass/Vol] 145 mg/dL High 60 - 115 mg/dl [facility] Phone: Interpretation and review of laboratory results Abnormal [facility] Phone: Performed on ACCU-CHEK [facility] Phone: Comment on above: Notified RN or MD [facility] Phone: Glucose [Mass/Vol] 119 mg/dL High 60 - 115 mg/dl [facility] Phone: Interpretation and review of laboratory results Abnormal [facility] Phone: Performed on ACCU-CHEK [facility] Phone: Comment on above: Notified RN or MD [facility] Phone: Glucose [Mass/Vol] 150 mg/dL High 60 - 115 mg/dl [facility] Phone: Interpretation and review of laboratory results Abnormal [facility] Phone: Performed on ACCU-CHEK [facility] Phone: [facility] Phone: Surgical PathologyOrdered By : Hernandez Tovar on 12-08-2020 [facility] [address] [place] [address] FINAL SURGICAL PATHOLOGY REPORT Patient Name: DEONDRE LR Accession No: [id number] Age Sex: 1955 Location: [facility] [id number] Account No: [id number] Collected: 12/06/2020 Med Rec No: [id number] Received: 12/06/2020 Attend Phys: HERNANDEZ TOVAR Completed: [...] in two cassettes following decalcification. NORA CPT: 22950 X1 31632 X1 MAIA DUGAN M.D. 12/08/2020 Electronically signed out by Page 1 of 1 [facility] Work Phone: Basic Metabolic Panel Reflex Mgon 12-07-2020 Anion gap [Moles/Vol] 11 mmol/L Normal 9-15 [facility] Comment on above: Performed By: #### B MPX #### [facility] [address] [place] [address] Calcium [Mass/Vol] 8.6 mg/dL Normal 8.5-9.9 [facility] Comment on above: Performed By: #### B MPX #### [facility] [address] [place] [address] Chloride [Moles/Vol] 102 mmol/L Normal 95-107 [facility] Comment on above: Performed By: #### B MPX #### [facility] [address] [place] [address] CO2 [Moles/Vol] 25 mmol/L Normal 20-31 [facility] Comment on above: Performed By: #### B MPX #### [facility] [address] [place] [address] Creatinine [Mass/Vol] 1.15 mg/dL Normal 0.70-1.20 [facility] Comment on above: Performed By: #### B MPX #### [facility] [address] [place] [address] GFR >60.0 Normal >60 [facility] Comment on above: Result Comment: >60 mL/min/1.73m2 EGFR, calc. for ages 18 and older using the MDRD formula (not corrected for weight), is valid for stable renal function. Performed By: #### B MPX #### [facility] [address] [place] [address] GFR/1.73 sq M.predicted among blacks MDRD (S/P/Bld) [Vol rate/Area] mL/min/{1.73_m2} Normal >60 [facility] Comment on above: Result Comment: >60 mL/min/1.73m2 EGFR, calc. for ages 18 and older using the MDRD formula (not corrected for weight), is valid for stable renal function. Performed By: #### B MPX #### [facility] [address] [place] [address] Glucose [Mass/Vol] 160 mg/dL Critically high 70-99 [facility] Comment on above: Performed By: #### B MPX #### [facility] [address] [place] [address] Magnesium [Moles/Vol] 4.8 mmol/L Normal 3.4-4.9 [facility] Comment on above: Performed By: #### B MPX #### [facility] [address] [place] [address] Sodium [Moles/Vol] 138 mmol/L Normal 135-144 [facility] Comment on above: Performed By: #### B MPX #### [facility] [address] [place] [address] Urea nitrogen [Mass/Vol] 18 mg/dL Normal 8-23 [facility] Comment on above: Performed By: #### B MPX #### [facility] [address] [place] [address] Basic Metabolic Panel w/ Ref rock to MGOrdered By: Hernandez Tovar on 12-07-2020 Anion gap [Moles/Vol] 11 mmol/L [facility] Work Phone: Calcium [Mass/Vol] 8.6 mg/dL 8.5 - 9.9 mg/dL [facility] Work Phone: Chloride [Moles/Vol] 102 mmol/L [facility] Work Phone: CO2 [Moles/Vol] 25 mmol/L [facility] Work Phone: Creatinine [Mass/Vol] 1.15 mg/dL 0.70 - 1.20 mg/dL [facility] Phone: GFR >60.0 >60 [employer] Phone: Comment on above: >60 mL/min/1.73m2 EG FR, calc. for ages 18 and older using the MDRD formula (not corrected for weight), is valid for stable renal function. GFR Non- >60.0 >60 [employer] Work Phone: Comment on above: >60 mL/min/1.73m2 EG FR, calc. for ages 18 and older using the MDRD formula (not corrected for weight), is valid for stable renal function. Glucose [Mass/Vol] 160 mg/dL High 70 - 99 mg/dL [facility] Phone: Interpretation and review of laboratory results Abnormal [facility] Phone: Potassium reflex Magnesium 4.8 [facility] Phone: Sodium [Moles/Vol] 138 mmol/L [facility] Phone: Urea nitrogen (BldV) [Mass/Vol] 18 mg/dL 8 - 23 mg/dL [facility] Phone: [facility] Phone: CBC With Platelet and Differ entialon 12-07-2020 Basophils (Bld) [#/Vol] 0.0 10*3/uL Normal 0.0-0.2 [facility] Comment on above: Performed By: #### C BCWD #### [facility] [address] [place] [address] Basophils/100 WBC (Bld) 0.1 % Normal [facility] Comment on above: Performed By: #### C BCWD #### [facility] [address] [place] [address] Eosinophils (Bld) [#/Vol] 0.0 10*3/uL Normal 0.0-0.7 [facility] Comment on above: Performed By: #### C BCWD #### [facility] [address] [place] [address] Eosinophils/100 WBC (Bld) 0.0 % Normal [facility] Comment on above: Performed By: #### C BCWD #### [facility] [address] [place] [address] Erythrocyte distribution width (RBC) [Ratio] 12.9 % Normal 11.5-14.5 [facility] Comment on above: Performed By: #### C BCWD #### [facility] [address] [place] [address] Hematocrit (Bld) [Volume fraction] 27.8 % Low 42.0-52.0 [facility] Comment on above: Performed By: #### C BCWD #### [facility] [address] [place] [address] Hemoglobin (Bld) [Mass/Vol] 9.3 g/dL Low 14.0-18.0 [facility] Comment on above: Performed By: #### C BCWD #### [facility] [address] [place] [address] Lymphocytes (Bld) [#/Vol] 1.1 10*3/uL Normal 1.0-4.8 [facility] Comment on above: Performed By: #### C BCWD #### [facility] [address] [place] [address] Lymphocytes/100 WBC (Bld) 7.7 % Normal [facility] Comment on above: Performed By: #### C BCWD #### [facility] [address] [place] [address] MCH (RBC) [Entitic mass] 32.6 pg Critically high 27.0-31.3 [facility] Comment on above: Performed By: #### C BCWD #### [facility] [address] [place] [address] MCHC 33.3 % Normal 33.0-37.0 [facility] Comment on above: Performed By: #### C BCWD #### [facility] [address] [place] [address] MCV (RBC) [Entitic vol] 97.8 fL Normal 80.0-100.0 [facility] Comment on above: Performed By: #### C BCWD #### [facility] [address] [place] [address] Monocytes (Bld) [#/Vol] 1.5 10*3/uL Critically high 0.2-0.8 [facility] Comment on above: Performed By: #### C BCWD #### [facility] [address] [place] [address] Monocytes/100 WBC (Bld) 10.1 % Normal [facility] Comment on above: Performed By: #### C BCWD #### [facility] [address] [place] [address] Neutrophils (Bld) [#/Vol] 11.8 10*3/uL Critically high 1.4-6.5 [facility] Comment on above: Performed By: #### C BCWD #### [facility] [address] [place] [address] Neutrophils/100 WBC (Bld) 82.1 % Normal [facility] Comment on above: Performed By: #### C BCWD #### [facility] [address] [place] [address] Platelets (Bld) [#/Vol] 183 10*3/uL Normal 130-400 [facility] Comment on above: Performed By: #### C BCWD #### [facility] [address] [place] [address] RBC (Bld) [#/Vol] 2.84 10*6/uL Low 4.70-6.10 [facility] Comment on above: Performed By: #### C BCWD #### [facility] [address] [place] [address] WBC (Bld) [#/Vol] 14.3 10*3/uL Critically high 4.8-10.8 [facility] Comment on above: Performed By: #### C BCWD #### [facility] [address] [place] [address] CBC auto differentialOrdered By: Hernandez Tovar on 12-07-2020 Basophils (Bld) [#/Vol] 0.0 10*3/uL 0.0 - 0.2 K/uL [facility] Phone: Basophils/100 WBC (Bld) 0.1 % [facility] Phone: Eosinophils (Bld) [#/Vol] 0.0 10*3/uL 0.0 - 0.7 K/uL [facility] Phone: Eosinophils/100 WBC (Bld) 0 % [facility] Phone: Hematocrit (Bld) [Volume fraction] 27.8 % Low 42.0 - 52.0 % [facility] Phone: Hemoglobin.gastrointes tinal spec 1 Ql (Stl) 9.3 g/dL Low 14.0 - 18.0 g/dL [facility] Phone: Interpretation and review of laboratory results Abnormal [facility] Phone: Lymphocytes (Bld) [#/Vol] 1.1 10*3/uL 1.0 - 4.8 K/uL [facility] Phone: Lymphocytes/100 WBC (Bld) 7.7 % [facility] Phone: MCH (RBC) [Entitic mass] 32.6 pg High 27.0 - 31.3 pg [facility] Phone: MCHC (RBC) [Mass/Vol] 33.3 % 33.0 - 37.0 % [facility] Phone: MCV (RBC) [Entitic vol] 97.8 fL 80.0 - 100.0 fL [facility] Phone: Monocytes (Bld) [#/Vol] 1.5 10*3/uL High 0.2 - 0.8 K/uL [facility] Phone: Monocytes/100 WBC (Bld) 10.1 % [facility] Phone: Neutrophils Absolute 11.8 K/uL High 1.4 - 6 .5 K/uL [facility] Phone: Neutrophils/100 WBC (Bld) 82.1 % [facility] Phone: Platelet distribution width (Bld) [Ratio] 12.9 % 11.5 - 14.5 % [facility] Phone: Platelets (Bld) [#/Vol] 183 10*3/uL 130 - 400 K/uL [facility] Phone: RBC (Bld) [#/Vol] 2.84 10*6/uL Low [facility] Phone: WBC (Bld) [#/Vol] 14.3 10*3/uL High 4.8 - 10.8 K/uL [facility] Phone: [facility] Phone: FLUORO FOR SURGICAL PROCEDUR ESOrdered By: Hernandez Tovar on 12-07-2020 [place], po Incoming Radiant Results From [employer] - 12/07/2020 1:12 PM EDT FLUORO FOR SURGICAL PROCEDURES : 12/06/2020 10:30 AM CLINICAL HISTORY: R52 Pain ICD10. COMPARISON: None available. Intraoperative fluoroscopy was provided for Dr. Tovar procedure. A total of 71.7 seconds of fluoroscopy was used, with 4 fluoroscopic stills saved. No diagnostic images were obtained. Please see Dr. Tovar surgical notes for completeness. [facility] Phone: [facility] Work Phone: POCT Glucoseon 12-07-2020 Glucose [Mass/Vol] 143 mg/dL Critically high 60-115 [facility] Comment on above: Performed By: #### P GLU #### [facility] [address] [place] [address] POC Performed on ACCU-CHEK Normal [facility] Comment on above: Performed By: #### P GLU #### [facility] [address] [place] [address] Glucose [Mass/Vol] 152 mg/dL Critically high 60-115 [facility] Comment on above: Performed By: #### P GLU #### [facility] [address] [place] [address] POC Performed on ACCU-CHEK Normal [facility] Comment on above: Performed By: #### P GLU #### [facility] [address] [place] [address] Glucose [Mass/Vol] 272 mg/dL Critically high -[address] [place] [address] Comment on above: Performed By: #### P GLU #### [facility] [address] [place] [address] POC Performed on ACCU-CHEK Normal [facility] Comment on above: Performed By: #### P GLU #### [facility] [address] [place] [address] Glucose [Mass/Vol] 178 mg/dL Critically high 60-115 [facility] Comment on above: Performed By: #### P GLU #### [facility] [address] [place] [address] POC Performed on ACCU-CHEK Normal [facility] Comment on above: Performed By: #### P GLU #### [facility] [address] [place] [address] POCT GlucoseOrdered By: Unkn own Result on 12-07-2020 Glucose [Mass/Vol] 143 mg/dL High 60 - 115 mg/dl [facility] Phone: Interpretation and review of laboratory results Abnormal [facility] Phone: Performed on ACCU-CHEK [facility] Phone: [facility] Phone: Glucose [Mass/Vol] 152 mg/dL High 60 - 115 mg/dl [facility] Phone: Interpretation and review of laboratory results Abnormal [facility] Phone: Performed on ACCU-CHEK [facility] Phone: [facility] Phone: Glucose [Mass/Vol] 272 mg/dL High 60 - 115 mg/dl [facility] Phone: Interpretation and review of laboratory results Abnormal [facility] Phone: Performed on ACCU-CHEK [facility] Phone: [facility] Phone: Glucose [Mass/Vol] 178 mg/dL High 60 - 115 mg/dl [facility] Phone: Interpretation and review of laboratory results Abnormal [facility] Phone: Performed on ACCU-[employer] [facility] Phone: [facility] Phone: XR LUMBAR SPINE (2-3 VIEWS)o n [...] Liban Solis MD 12/07/20 Final result Normal [facility] XR LUMBAR SPINE (2-3 VIEWS)O rdered By: Hernandez Tovar on 12-07-2020 Interval postoperative changes of L3-L4 posterior laminectomy and stable L4-S1 posterior fusion, with intact hardware. [facility] Phone: TECHNIQUE: AP AND LATERAL VIEWS OF [...] imaged femoral joints. SI joints are unremarkable. [facility] Phone: [place], po Incoming Radiant Results From [employer] - 12/07/2020 11:21 AM EDT TECHNIQUE: AP [...] stable L4-S1 posterior fusion, with intact hardware. [facility] Work Phone: [facility] Phone: Basic Metabolic Panel Reflex Mgon 12-06-2020 Anion gap [Moles/Vol] 10 mmol/L Normal 9-15 [facility] Comment on above: Performed By: #### B MPX #### [facility] [address] [place] [address] Calcium [Mass/Vol] 8.2 mg/dL Low 8.5-9.9 [facility] Comment on above: Performed By: #### B MPX #### [facility] [address] [place] [address] Chloride [Moles/Vol] 102 mmol/L Normal 95-107 [facility] Comment on above: Performed By: #### B MPX #### [facility] [address] [place] [address] CO2 [Moles/Vol] 25 mmol/L Normal 20-31 [facility] Comment on above: Performed By: #### B MPX #### [facility] [address] [place] [address] Creatinine [Mass/Vol] 1.18 mg/dL Normal 0.70-1.20 [facility] Comment on above: Performed By: #### B MPX #### [facility] [address] [place] [address] GFR >60.0 Normal >60 [facility] Comment on above: Result Comment: >60 mL/min/1.73m2 EGFR, calc. for ages 18 and older using the MDRD formula (not corrected for weight), is valid for stable renal function. Performed By: #### B MPX #### [facility] [address] [place] [address] GFR/1.73 sq M.predicted among blacks MDRD (S/P/Bld) [Vol rate/Area] mL/min/{1.73_m2} Normal >60 [facility] Comment on above: Result Comment: >60 mL/min/1.73m2 EGFR, calc. for ages 18 and older using the MDRD formula (not corrected for weight), is valid for stable renal function. Performed By: #### B MPX #### [facility] [address] [place] [address] Glucose [Mass/Vol] 197 mg/dL Critically high 70-99 [facility] Comment on above: Performed By: #### B MPX #### [facility] [address] [place] [address] Magnesium [Moles/Vol] 4.1 mmol/L Normal 3.4-4.9 [facility] Comment on above: Performed By: #### B MPX #### [facility] [address] [place] [address] Sodium [Moles/Vol] 137 mmol/L Normal 135-144 [facility] Comment on above: Performed By: #### B MPX #### [facility] [address] [place] [address] Urea nitrogen [Mass/Vol] 19 mg/dL Normal 8-23 [facility] Comment on above: Performed By: #### B MPX #### [facility] [address] [place] [address] Basic Metabolic Panel w/ Ref rock to MGOrdered By: Hernandez Tovar on 12-06-2020 Anion gap [Moles/Vol] 10 mmol/L [facility] Work Phone: Calcium [Mass/Vol] 8.2 mg/dL Low 8.5 - 9.9 mg/dL [facility] Work Phone: Chloride [Moles/Vol] 102 mmol/L [facility] [employer] Work Phone: CO2 [Moles/Vol] 25 mmol/L [facility] Work Phone: Creatinine [Mass/Vol] 1.18 mg/dL 0.70 - 1.20 mg/dL [facility] Phone: GFR >60.0 >60 [facility] [employer] Work Phone: Comment on above: >60 mL/min/1.73m2 EG FR, calc. for ages 18 and older using the MDRD formula (not corrected for weight), is valid for stable renal function. GFR Non- >60.0 >60 [facility] Phone: Comment on above: >60 mL/min/1.73m2 EG FR, calc. for ages 18 and older using the MDRD formula (not corrected for weight), is valid for stable renal function. Glucose [Mass/Vol] 197 mg/dL High 70 - 99 mg/dL [facility] Phone: Interpretation and review of laboratory results Abnormal [facility] Phone: Potassium reflex Magnesium 4.1 [facility] Phone: Sodium [Moles/Vol] 137 mmol/L [facility] Phone: Urea nitrogen (BldV) [Mass/Vol] 19 mg/dL 8 - 23 mg/dL [facility] Work Phone: [facility] Work Phone: CBC With Platelet No Differe ntialon 12-06-2020 Erythrocyte distribution width (RBC) [Ratio] 13.1 % Normal 11.5-14.5 [facility] Comment on above: Performed By: #### C BCND #### [facility] [address] [place] [address] Hematocrit (Bld) [Volume fraction] 30.4 % Low 42.0-52.0 [facility] Comment on above: Performed By: #### C BCND #### [facility] [address] [place] [address] Hemoglobin (Bld) [Mass/Vol] 10.0 g/dL Low 14.0-18.0 [facility] Comment on above: Performed By: #### C BCND #### [facility] [address] [place] [address] MCH (RBC) [Entitic mass] 32.6 pg Critically high 27.0-31.3 [facility] Comment on above: Performed By: #### C BCND #### [facility] [address] [place] [address] MCHC 32.9 % Low 33.0-37.0 [facility] Comment on above: Performed By: #### C BCND #### [facility] [address] [place] [address] MCV (RBC) [Entitic vol] 99.0 fL Normal 80.0-100.0 [facility] Comment on above: Performed By: #### C BCND #### [facility] [address] [place] [address] Platelets (Bld) [#/Vol] 161 10*3/uL Normal 130-400 [facility] Comment on above: Performed By: #### C BCND #### [facility] [address] [place] [address] RBC (Bld) [#/Vol] 3.07 10*6/uL Low 4.70-6.10 [facility] Comment on above: Performed By: #### C BCND #### [facility] [address] [place] [address] WBC (Bld) [#/Vol] 8.4 10*3/uL Normal 4.8-10.8 [facility] Comment on above: Performed By: #### C BCND #### [facility] [address] [place] [address] CBC without DiffOrdered By: Hernandez Tovar on 12-06-2020 Hematocrit (Bld) [Volume fraction] 30.4 % Low 42.0 - 52.0 % [facility] Phone: Hemoglobin.gastrointes tinal spec 1 Ql (Stl) 10.0 g/dL Low 14.0 - 18.0 g/dL [facility] Phone: Interpretation and review of laboratory results Abnormal [facility] Phone: MCH (RBC) [Entitic mass] 32.6 pg High 27.0 - 31.3 pg [facility] Phone: MCHC (RBC) [Mass/Vol] 32.9 % Low 33.0 - 37.0 % [facility] Phone: MCV (RBC) [Entitic vol] 99.0 fL 80.0 - 100.0 fL [facility] Phone: Platelet distribution width (Bld) [Ratio] 13.1 % 11.5 - 14.5 % [facility] Phone: Platelets (Bld) [#/Vol] 161 10*3/uL 130 - 400 K/uL [facility] Phone: RBC (Bld) [#/Vol] 3.07 10*6/uL Low [facility] Phone: WBC (Bld) [#/Vol] 8.4 10*3/uL 4.8 - 10.8 K/uL [facility] Phone: [facility] Phone: No Panel InformationOrdered By: Unknown Result on 12-06-2020 Interpretation and review of laboratory results Abnormal [facility] Phone: Performed on ACCU-CHEK [facility] Phone: [facility] Phone: POCT Glucoseon 12-06-2020 Glucose [Mass/Vol] 198 mg/dL Critically high 60-115 [facility] Comment on above: Performed By: #### P GLU #### [facility] [address] [place] [address] POC Performed on ACCU-CHEK Normal [facility] Comment on above: Performed By: #### P GLU #### [facility] [address] [place] [address] Glucose [Mass/Vol] 210 mg/dL Critically high 60-[address] [place] [address] Comment on above: Performed By: #### P GLU #### [facility] [address] [place] [address] POC Performed on ACCU-CHEK Normal [facility] Comment on above: Performed By: #### P GLU #### [facility] [address] [place] [address] Glucose [Mass/Vol] 189 mg/dL Critically high 60-115 [facility] Comment on above: Performed By: #### P GLU #### [facility] [address] [place] [address] POC Performed on ACCU-CHEK Normal [facility] Comment on above: Performed By: #### P GLU #### [facility] [address] [place] [address] POC Performed on ACCU-CHEK Normal [facility] Comment on above: Performed By: #### P GLU #### [facility] [address] [facility] [address] POCT GlucoseOrdered By: Unkn own Result on 12-06-2020 Glucose [Mass/Vol] 198 mg/dL High 60 - 115 mg/dl [facility] Phone: Interpretation and review of laboratory results Abnormal [facility] Phone: Performed on ACCU-CHEK [facility] Phone: [facility] Phone: Glucose [Mass/Vol] 210 mg/dL High 60 - 115 mg/dl [facility] Phone: Interpretation and review of laboratory results Abnormal [facility] Phone: Performed on ACCU-CHEK [facility] Phone: [facility] Phone: Glucose [Mass/Vol] 189 mg/dL High 60 - 115 mg/dl [facility] Phone: Glucose [Mass/Vol] 171 mg/dL Critically high 60-115 [facility]: Comment on above: Performed By: #### P GLU #### [facility] [address] [place] [address] [id number] Surgical Specimenon 12-07-19 21 Surgical Specimen [facility] [address] [place], [place] [id number] FINAL SURGICAL PATHOLOGY REPORT Patient Name: DEONDRE LR Accession No: [id number] Age Sex: 1955 Location: [facility] [id number] Account No: [id number] Collected: 12/06/2020 [facility] Rec No: [id number] Received: 12/06/2020 Attend Phys: HERNANDEZ TOVAR Completed: [...] in two cassettes following decalcification. NORA CPT: 23459 X1 53429 X1 MAIA DUGAN M.D. 12/08/2020 Electronically signed out by Page 1 of 1 Invalid Interpretation Code [facility] Comment on above: Performed By: #### P GLU #### [facility] [address] [place] [address] Basic Metabolic Panelon Anion gap [Moles/Vol] 10 mmol/L Normal 9-15 [facility] Comment on above: Performed By: #### B MP #### [facility] [address] [place] [address] Calcium [Mass/Vol] 9.3 mg/dL Normal 8.5-9.9 [facility] Comment on above: Performed By: #### B MP #### [facility] [address] [place] [address] Chloride [Moles/Vol] 108 mmol/L Critically high 95-107 [facility] Comment on above: Performed By: #### B MP #### [facility] [address] [place] [address] CO2 [Moles/Vol] 26 mmol/L Normal 20-31 [facility] Comment on above: Performed By: #### B MP #### [facility] [address] [place] [address] Creatinine [Mass/Vol] 1.03 mg/dL Normal 0.70-1.20 [facility] Comment on above: Performed By: #### B MP #### [facility] [address] [place] [address] GFR >60.0 Normal >60 [facility] Comment on above: Result Comment: >60 mL/min/1.73m2 EGFR, calc. for ages 18 and older using the MDRD formula (not corrected for weight), is valid for stable renal function. Performed By: #### B MP #### [facility] [address] [place] [address] GFR/1.73 sq M.predicted among blacks MDRD (S/P/Bld) [Vol rate/Area] mL/min/{1.73_m2} Normal >60 [facility] Comment on above: Result Comment: >60 mL/min/1.73m2 EGFR, calc. for ages 18 and older using the MDRD formula (not corrected for weight), is valid for stable renal function. Performed By: #### B MP #### [facility] [address] [place] [address] Glucose [Mass/Vol] 104 mg/dL Critically high 70-99 M [facility] Comment on above: Performed By: #### B MP #### [facility] [address] [place] [address] Potassium [Moles/Vol] 4.3 mmol/L Normal 3.4-4.9 [facility] Comment on above: Performed By: #### B MP #### [facility] [address] [place] [address] Sodium [Moles/Vol] 144 mmol/L Normal 135-144 [facility] Comment on above: Performed By: #### B MP #### [facility] [address] [place] [address] Urea nitrogen [Mass/Vol] 14 mg/dL Normal 8-23 [facility] Comment on above: Performed By: #### B MP #### [facility] [address] [place] [address] CBC With Platelet No Differe ntialon 11-25-2020 Erythrocyte distribution width (RBC) [Ratio] 13.2 % Normal 11.5-14.5 [facility] Comment on above: Performed By: #### C BCND #### [facility] [address] [place] [address] Hematocrit (Bld) [Volume fraction] 32.3 % Low 42.0-52.0 [facility] Comment on above: Performed By: #### C BCND #### [facility] [address] [place] [address] Hemoglobin (Bld) [Mass/Vol] 11.1 g/dL Low 14.0-18.0 [facility] Comment on above: Performed By: #### C BCND #### [facility] [address] [place] [address] MCH (RBC) [Entitic mass] 33.8 pg Critically high 27.0-31.3 [facility] Comment on above: Performed By: #### C BCND #### [facility] [address] [place] [address] MCHC 34.4 % Normal 33.0-37.0 [facility] Comment on above: Performed By: #### C BCND #### [facility] [address] [place] [address] MCV (RBC) [Entitic vol] 98.3 fL Normal 80.0-100.0 [facility] Comment on above: Performed By: #### C BCND #### [facility] [address] [place] [address] Platelets (Bld) [#/Vol] 212 10*3/uL Normal 130-400 [facility] Comment on above: Performed By: #### C BCND #### [facility] [address] [place] [address] RBC (Bld) [#/Vol] 3.29 10*6/uL Low 4.70-6.10 [facility] Comment on above: Performed By: #### C BCND #### [facility] [address] [place] [address] WBC (Bld) [#/Vol] 7.5 10*3/uL Normal 4.8-10.8 [facility] Comment on above: Performed By: #### C BCND #### [facility] [address] [place] [address] Partial Thromboplastin Timeo n 11-25-2020 aPTT Coag (Bld) [Time] 33.3 s Normal 24.4-36.8 [facility] Comment on above: Result Comment: Effe ctive 03/30/2020: Heparin Therapeutic Range: 64.0 ? 98.0 seconds. Performed By: #### P TT #### [facility] [address] [place] [address] Prothrombin Timeon INR Coag (PPP) [Relative time] 1.0 {INR} Normal [facility] Comment on above: Performed By: #### P T #### [facility] [address] [place] [address] PT Coag (PPP) [Time] 13.0 s Normal 12.3-14.9 [facility] Comment on above: Performed By: #### P T #### [facility] [address] [place] [address] Type and Screen Capture 3 sc rn cellon 11-25-2020 Type and Screen Capture 3 scrn cell PATIENT: GERONIMO Koroma LOC: [facility] BILL# : [id number] : 1955 SEX: M ORDERED BY: GLORIA ORDAZ ORDERED : 11/25/2020 13:32 COLLECTED: 11/25/2020 13:34 ORDER : [id number] RECEIVED : 11/25/2020 16:04 TEST NAME RESULT UNITS RANGES ABN FL ST ABORH Capture O POS F Antibody 3 Cell Scrn Captu NEG F Normal [facility] Comment on above: Performed By: #### T S3C #### [facility] [address] [place] [address] XR SPINE ENTIRE (2-3 VIEWS)O rdered By: [...] osseous changes. There is no significant scoliosis. [facility] Work Phone: [place], [facility] Incoming Radiant Results From [facility] - 11/25/2020 4:28 PM EDT CLINICAL HISTORY:M54.10 [...] osseous changes. There is no significant scoliosis. [facility] Phone: [facility] Phone: XR SPINE ENTIRE (2-3 VIEWS)o n [...] Les Delgado MD 11/25/20 Final result Normal [facility] POCT GlucoseOrdered By: Unkn own Result on 06-08-2019 Glucose [Mass/Vol] 127 mg/dL High 60 - 115 mg/dl [facility] Phone: Interpretation and review of laboratory results Abnormal [facility] Phone: Performed on ACCU-CHEK [facility] Phone: Glucose [Mass/Vol] 125 mg/dL [facility] Phone: Performed on [employer] Phone: POCT GlucoseOrdered By: Unkn own Result on 06-07-2019 Glucose [Mass/Vol] 112 mg/dL [facility] Phone: Performed on [employer] Phone: Glucose [Mass/Vol] 123 mg/dL [facility] Phone: Performed on [employer] Work Phone: Glucose [Mass/Vol] 131 mg/dL [facility] Phone: Performed on [employer] Phone: Glucose [Mass/Vol] 110 mg/dL [facility] Phone: Performed on [employer] Phone: POCT GlucoseOrdered By: Unkn own Result on 06-06-2019 Glucose [Mass/Vol] 117 mg/dL [facility] Phone: Performed on [employer] Phone: Glucose [Mass/Vol] 126 mg/dL [facility] Phone: Performed on [employer] Phone: Glucose [Mass/Vol] 125 mg/dL [facility] Phone: Performed on [employer] Phone: Glucose [Mass/Vol] 138 mg/dL [facility] Phone: Performed on [employer] Phone: Glucose [Mass/Vol] 124 mg/dL [facility] Phone: Performed on [employer] Phone: Basic Metabolic Panel w/ Ref rock to MGOrdered By: Hernandez Tovar on 06-05-2019 Anion gap [Moles/Vol] 14 mmol/L [facility] Work Phone: Calcium [Mass/Vol] 8.5 mg/dL 8.5 - 9.9 mg/dL [facility] Work Phone: Chloride [Moles/Vol] 98 mmol/L [facility] Work Phone: CO2 [Moles/Vol] 25 mmol/L [facility] Work Phone: Creatinine [Mass/Vol] 0.94 mg/dL 0.7 - 1.2 mg/dL [facility] Work Phone: GFR >60.0 >60 [facility] Work Phone: Comment on above: >60 mL/min/1.73m2 EG FR, calc. for ages 18 and older using the MDRD formula (not corrected for weight), is valid for stable renal function. GFR Non- >60.0 >60 [facility] Work Phone: Comment on above: >60 mL/min/1.73m2 EG FR, calc. for ages 18 and older using the MDRD formula (not corrected for weight), is valid for stable renal function. Glucose [Mass/Vol] 180 mg/dL High 70 - 99 mg/dL [facility] Phone: Interpretation and review of laboratory results Abnormal [facility] Work Phone: Potassium reflex Magnesium 3.6 [facility] Work Phone: Sodium [Moles/Vol] 137 mmol/L [facility] [employer] Phone: Urea nitrogen [Mass/Vol] 14 mg/dL 8 - 23 mg/dL [facility] Work Phone: CBC auto differentialOrdered By: Hernandez Tovar on 06-05-2019 Bands Relative 1 % [facility] Work Phone: Basophils (Bld) [#/Vol] 0.0 10*3/uL 0 - 0.2 K/uL [facility] Phone: Basophils/100 WBC (Bld) 0.4 % [facility] Phone: Eosinophils (Bld) [#/Vol] 0.0 10*3/uL 0 - 0.7 K/uL [facility] Phone: Eosinophils/100 WBC (Bld) 0.1 % [facility] Phone: Erythrocyte distribution width (RBC) [Ratio] 13.4 % 11.5 - 14.5 % [facility] Phone: Hematocrit (Bld) [Volume fraction] 32.2 % Low 42 - 52 % [facility] Phone: Hemoglobin (Bld) [Mass/Vol] 10.6 g/dL Low 14 - 18 g/dL [facility] Phone: Interpretation and review of laboratory results Abnormal [facility] Phone: Lymphocytes (Bld) [#/Vol] 1.1 10*3/uL 1 - 4.8 K/uL [facility] Phone: Lymphocytes/100 WBC (Bld) 7.0 % [facility] Phone: Macrocytes Ql (Bld) 1+ [facility] Phone: MCH (RBC) [Entitic mass] 33.3 pg High 27 - 31.3 pg [facility] Phone: MCHC 33.0 % 33 - 37 % [facility] Phone: MCV (RBC) [Entitic vol] 101.1 fL High 80 - 100 fL [facility] Phone: Monocytes (Bld) [#/Vol] 0.8 10*3/uL 0.2 - 0.8 K/uL [facility] Phone: Monocytes/100 WBC (Bld) 4.7 % [facility] Phone: Neutrophils Absolute 13.4 K/uL High 1.4 - 6 .5 K/uL [facility] Phone: Neutrophils/100 WBC (Bld) 88.0 % [facility] Phone: PLATELET SLIDE REVIEW Normal [facility] [email or web address] Phone: Platelets (Bld) [#/Vol] 223 10*3/uL 130 - 400 K/uL [facility] Phone: RBC (Bld) [#/Vol] 3.19 10*6/uL Low [facility] Phone: SLIDE REVIEW see below [facility] Phone: Comment on above: Slide review agrees with reported results WBC (Bld) [#/Vol] 15.1 10*3/uL High 4.8 - 10.8 K/uL [facility] Phone: POCT GlucoseOrdered By: Unkn own Result on 06-05-2019 Glucose [Mass/Vol] 134 mg/dL [facility] Phone: Performed on [employer]Pinger Phone: Glucose [Mass/Vol] 166 mg/dL [facility] Phone: Performed on ACCU-CHEK [facility] Phone: Glucose [Mass/Vol] 166 mg/dL [facility] Phone: Performed on ACCU-CHEK [facility] Phone: Glucose [Mass/Vol] 160 mg/dL High 60 - 115 mg/dl [facility] Phone: Interpretation and review of laboratory results Abnormal [facility] Phone: Performed on ACCU-CHEK [facility] Phone: Surgical PathologyOrdered By : Hernandez Tovar on 06-05-2019 [facility] [address] [place] [address] FINAL SURGICAL PATHOLOGY REPORT Patient Name: DEONDRE LR Accession No: [id number] Age Sex: 1955 Location: [facility] [id number] Account No: [id number] Collected: 06/04/2019 Med Rec No: [id number] Received: 06/04/2019 Attend Phys: HERNANDEZ TOVAR Completed: [...] and A2 for brief decalcification. WADE/TOBIN CPT: 08969 X1 ALDA ELLER M.D. 06/05/2019 Electronically signed out by Page 1 of 1 [facility] Phone: XR LUMBAR SPINE (2-3 VIEWS)O rdered By: Hernandez Tovar on 06-05-2019 Impression: 1. Postoperative changes as described above without unexpected postoperative complicating features. 2. Mild bilateral osteoarthritis of the hips. [facility] Phone: Patient : 1955 Age: 64 years [...] gas pattern. Mild degenerative changes bilateral hips. [facility] Phone: [place], [facility] Incoming Radiant Results From [employer] - 06/05/2019 11:52 AM EST Patient : [...] 2. Mild bilateral osteoarthritis of the hips. [facility] Phone: APTTOrdered By: Susie laura on 06-04-2019 aPTT Coag (Bld) [Time] 32.3 s [facility] Work Phone: Comment on above: Effective 12/11/2018: Please note methodology and/or reference ranges have changed. aPTT - Heparin Therapeutic Range: 74.0 - 106 seconds Basic Metabolic PanelOrdered By: Susie Lee on 06-04-2019 Anion gap [Moles/Vol] 11 mmol/L [facility] Work Phone: Calcium [Mass/Vol] 9.0 mg/dL 8.5 - 9.9 mg/dL [facility] Phone: Chloride [Moles/Vol] 106 mmol/L [facility] [employer] Work Phone: CO2 [Moles/Vol] 26 mmol/L [facility] Work Phone: Creatinine [Mass/Vol] 0.93 mg/dL 0.7 - 1.2 mg/dL [facility] Phone: GFR >60.0 >60 [facility] Phone: Comment on above: >60 mL/min/1.73m2 EG FR, calc. for ages 18 and older using the MDRD formula (not corrected for weight), is valid for stable renal function. GFR Non- >60.0 >60 [facility] Phone: Comment on above: >60 mL/min/1.73m2 EG FR, calc. for ages 18 and older using the MDRD formula (not corrected for weight), is valid for stable renal function. Glucose [Mass/Vol] 134 mg/dL High 70 - 99 mg/dL [facility] Phone: Interpretation and review of laboratory results Abnormal [facility] Phone: Potassium [Moles/Vol] 4.3 mmol/L [employer] Work Phone: Sodium [Moles/Vol] 143 mmol/L [facility] Phone: Urea nitrogen [Mass/Vol] 19 mg/dL 8 - 23 mg/dL [facility] Phone: Basic Metabolic Panel w/ Ref rock to MGOrdered By: Hernandez Tovar on 06-04-2019 Anion gap [Moles/Vol] 13 mmol/L [facility] [employer] Work Phone: Calcium [Mass/Vol] 8.3 mg/dL Low 8.5 - 9.9 mg/dL [facility] Phone: Chloride [Moles/Vol] 104 mmol/L [employer] Work Phone: CO2 [Moles/Vol] 23 mmol/L [facility] Work Phone: Creatinine [Mass/Vol] 0.91 mg/dL 0.7 - 1.2 mg/dL [facility] Phone: GFR >60.0 >60 [facility] Phone: Comment on above: >60 mL/min/1.73m2 EG FR, calc. for ages 18 and older using the MDRD formula (not corrected for weight), is valid for stable renal function. GFR Non- >60.0 >60 [facility] Phone: Comment on above: >60 mL/min/1.73m2 EG FR, calc. for ages 18 and older using the MDRD formula (not corrected for weight), is valid for stable renal function. Glucose [Mass/Vol] 177 mg/dL High 70 - 99 mg/dL [facility] Phone: Interpretation and review of laboratory results Abnormal [facility] Phone: Potassium reflex Magnesium 4.2 [facility] Phone: Sodium [Moles/Vol] 140 mmol/L [facility] Phone: Urea nitrogen [Mass/Vol] 18 mg/dL 8 - 23 mg/dL [facility] Phone: CBCOrdered By: Susie ewing on 06-04-2019 Erythrocyte distribution width (RBC) [Ratio] 13.7 % 11.5 - 14.5 % [facility] Phone: Hematocrit (Bld) [Volume fraction] 35.1 % Low 42 - 52 % [facility] Phone: Hemoglobin (Bld) [Mass/Vol] 11.7 g/dL Low 14 - 18 g/dL [facility] Phone: Interpretation and review of laboratory results Abnormal [facility] Phone: MCH (RBC) [Entitic mass] 33.6 pg High 27 - 31.3 pg [facility] Phone: MCHC 33.4 % 33 - 37 % [facility] Phone: MCV (RBC) [Entitic vol] 100.7 fL High 80 - 100 fL [facility] Phone: Platelets (Bld) [#/Vol] 206 10*3/uL 130 - 400 K/uL [facility] Phone: RBC (Bld) [#/Vol] 3.48 10*6/uL Low [facility] Phone: WBC (Bld) [#/Vol] 7.6 10*3/uL 4.8 - 10.8 K/uL [facility] Phone: CBC without DiffOrdered By: Hernandez Tovar on 06-04-2019 Erythrocyte distribution width (RBC) [Ratio] 13.7 % 11.5 - 14.5 % [facility] Phone: Hematocrit (Bld) [Volume fraction] 32.9 % Low 42 - 52 % [facility] Phone: Hemoglobin (Bld) [Mass/Vol] 10.7 g/dL Low 14 - 18 g/dL [facility] Phone: Interpretation and review of laboratory results Abnormal [facility] Phone: MCH (RBC) [Entitic mass] 33.4 pg High 27 - 31.3 pg [facility] Phone: MCHC 32.6 % Low 33 - 37 % [facility] Phone: MCV (RBC) [Entitic vol] 102.4 fL High 80 - 100 fL [facility] Phone: Platelets (Bld) [#/Vol] 177 10*3/uL 130 - 400 K/uL [facility] Phone: RBC (Bld) [#/Vol] 3.22 10*6/uL Low [facility] Phone: WBC (Bld) [#/Vol] 9.0 10*3/uL 4.8 - 10.8 K/uL [facility] Phone: POCT GlucoseOrdered By: Unkn own Result on 06-04-2019 Glucose [Mass/Vol] 181 mg/dL High 60 - 115 mg/dl [facility] Phone: Interpretation and review of laboratory results Abnormal [facility] Phone: Performed on ACCU-CHEK [facility] Phone: Glucose [Mass/Vol] 187 mg/dL High 60 - 115 mg/dl [facility] Phone: Interpretation and review of laboratory results Abnormal [facility] Phone: Performed on ACCU-CHEK [facility] Phone: Glucose [Mass/Vol] 140 mg/dL High 60 - 115 mg/dl [facility] Phone: Interpretation and review of laboratory results Abnormal [facility] Phone: Performed on ACCU-CHEK [facility] Phone: Protime-INROrdered By: Alejandro Lee on 06-04-2019 INR Coag (PPP) [Relative time] 1.0 {INR} [facility] Phone: Comment on above: Warfarin Therapy INR Therapeutic: 2.0-3.0 With Mechanical Valve: >2.5 Low-intensity Therapeutic Range: 1.5-2.0 Mod-intensity Therapeutic Range: 2.0-3.0 High-intensity Therapeutic Range: 2.5-3.5 High-intensity Therapeutic Range: 3.0-4.0 Common Critical/Alarm Value: 5.0 Common Upper Limit Reported: 10.0 Effective 12/04/2018: Please note methodology and/or reference ranges have changed. PT Coag (PPP) [Time] 13.1 s [facility] Phone: Comment on above: Effective 12/04/18 Please note methodology and/or reference ranges have changed. TYPE AND SCREENOrdered By: Camelia Lee on 06-04-2019 ABO/Rh Positive [facility] Phone: Vital Signs Date Time Vital Sign Value Performing Clinician Facility 02-04-2023 15:30-0400 Body height 165.1 cm Mike Yuan Other [facility] Other 02-04-2023 15:30-0400 Body mass index (BMI) [Ratio] 28.05 kg/m2 Mike Yuan Other [facility] Other 02-04-2023 15:30-0400 Body weight 76.48 kg Mike Yuan Other [facility] Other 02-04-2023 15:30-0400 Diastolic blood pressure 58 mm[Hg] Mike Yuan Other [facility] Other 02-04-2023 15:30-0400 Respiratory rate 12 /min Mike Yuan Other [facility] Other 02-04-2023 15:30-0400 Systolic blood pressure 93 mm[Hg] Mike Yuan Other [facility] Other 11-02-2022 14:45-0400 Body height 165.1 cm Mike Yuan Other [facility] Other 11-02-2022 14:45-0400 Body mass index (BMI) [Ratio] 28.95 kg/m2 Mike Yuan Other [facility] Other 11-02-2022 14:45-0400 Body weight 78.93 kg Mike Yuan Other [facility] Other 11-02-2022 14:45-0400 Diastolic blood pressure 63 mm[Hg] Mike Yuan Other [facility] Other 11-02-2022 14:45-0400 Systolic blood pressure 97 mm[Hg] Mike Yuan Other [facility] Other 12-06-2021 13:34-0400 SaO2% (BldA) [Mass fraction] 95 % Skye Garcia MD Work Phone: [facility] 12-06-2021 13:00-0400 Diastolic blood pressure 71 mm[Hg] Skye Garcia MD Work Phone: [facility] [employer] 12-06-2021 13:00-0400 Systolic blood pressure 95 mm[Hg] Skye Garcia MD Work Phone: [facility] [employer] 12-06-2021 12:51-0400 Body height 165.1 cm Skye Garcia MD Work Phone: [facility] [employer] 12-06-2021 12:51-0400 Body mass index (BMI) [Ratio] 29.95 kg/m2 Skye Garcia MD Work Phone: [facility] [employer] 12-06-2021 12:51-0400 Body weight 81.65 kg Skye Garcia MD Work Phone: [facility] [employer] 12-06-2021 12:51-0400 Heart rate 70 /min Skye Garcia MD Work Phone: [facility] [employer] 12-06-2021 12:51-0400 Respiratory rate 18 /min Skye Garcia MD Work Phone: [facility] [employer] 09-06-2021 08:21-0400 Body height 165.1 cm Zenia Molina MD Work Phone: [employer] 09-06-2021 06:42-0400 Body temperature 98.01 [degF] Zenia Molina MD Work Phone: [employer] 09-06-2021 06:42-0400 Diastolic blood pressure 60 mm[Hg] Zenia Molina MD Work Phone: [employer] 09-06-2021 06:42-0400 Heart rate 71 /min Zenia Molina MD Work Phone: [employer] 09-06-2021 06:42-0400 Respiratory rate 16 /min Zenia Molina MD Work Phone: [employer] 09-06-2021 06:42-0400 SaO2% (BldA) [Mass fraction] 93 % Zenia Molina MD Work Phone: [employer] 09-06-2021 06:42-0400 Systolic blood pressure 99 mm[Hg] Zenia Molina MD Work Phone: [employer] 09-05-2021 07:45-0400 Body mass index (BMI) [Ratio] 29.29 kg/m2 Zenia Molina MD Work Phone: [employer] 09-05-2021 07:45-0400 Body weight 79.83 kg Zenai Molina MD Work Phone: [employer] 08-22-2021 10:36-0400 Body height 165.1 cm Zenia Molina MD Work Phone: [employer] 08-22-2021 10:36-0400 Body temperature 97.9 [degF] Zenia Molina MD Work Phone: [employer] 08-22-2021 10:36-0400 Diastolic blood pressure 78 mm[Hg] Zenia Molina MD Work Phone: [employer] 08-22-2021 10:36-0400 Heart rate 87 /min Zenia Molina MD Work Phone: [employer] 08-22-2021 10:36-0400 Respiratory rate 18 /min Zenia Molina MD Work Phone: [employer] 08-22-2021 10:36-0400 SaO2% (BldA) [Mass fraction] 98 % Zenia Molina MD Work Phone: [employer] 08-22-2021 10:36-0400 Systolic blood pressure 141 mm[Hg] Zenia Molina MD Work Phone: [employer] 08-22-2021 10:18-0400 Body mass index (BMI) [Ratio] 29.45 kg/m2 Zenia Molina MD Work Phone: [employer] 08-22-2021 10:18-0400 Body weight 80.29 kg Zenia Molina MD Work Phone: [employer] 12-08-2020 15:01-0400 Body temperature 98.2 [degF] Hernandez oTvar MD Work Phone: [employer] Work Phone: 12-08-2020 15:01-0400 Diastolic blood pressure 61 mm[Hg] Hernandez Tovar MD Work Phone: [employer] Work Phone: 12-08-2020 15:01-0400 Heart rate 89 /min Hernandez Tovar MD Work Phone: [employer] Work Phone: 12-08-2020 15:01-0400 Respiratory rate 20 /min Hernandez Tovar MD Work Phone: [employer] Work Phone: 12-08-2020 15:01-0400 SaO2% (BldA) [Mass fraction] 98 % Hernandez Tovar MD Work Phone: [employer] Work Phone: 12-08-2020 15:01-0400 Systolic blood pressure 122 mm[Hg] Hernandez Tovar MD Work Phone: [employer] Work Phone: 12-06-2020 23:35-0400 Body height 165.1 cm Hernandez Tovar MD Work Phone: [employer] Work Phone: 12-06-2020 23:35-0400 Body mass index (BMI) [Ratio] 30.25 kg/m2 Hernandez Tovar MD Work Phone: [employer] Work Phone: 12-06-2020 23:35-0400 Body weight 82.46 kg Hernandez Tovar MD Work Phone: [employer] Work Phone: 06-08-2019 07:22-0500 Body temperature 98.2 [degF] Hernandez Tovar MD Work Phone: [employer] Work Phone: 06-08-2019 07:22-0500 Diastolic blood pressure 42 mm[Hg] Hernandez Tovar MD Work Phone: [employer] Work Phone: 06-08-2019 07:22-0500 Heart rate 80 /min Hernandez Tovar MD Work Phone: [employer] Work Phone: 06-08-2019 07:22-0500 Respiratory rate 16 /min Hernandez Tovar MD Work Phone: [employer] Work Phone: 06-08-2019 07:22-0500 SaO2% (BldA) [Mass fraction] 96 % Hernandez Tovar MD Work Phone: [employer] Work Phone: 06-08-2019 07:22-0500 Systolic blood pressure 105 mm[Hg] Hernandez Tovar MD Work Phone: [employer] Work Phone: 06-04-2019 06:15-0500 Body height 162.6 cm Hernandez Tovar MD Work Phone: [employer] Work Phone: 06-04-2019 06:15-0500 Body mass index (BMI) [Ratio] 30.04 kg/m2 Hernandez Tovar MD Work Phone: [employer] Work Phone: 06-04-2019 06:15-0500 Body weight 79.38 kg Hernandez Tovar MD Work Phone: [employer] Work Phone: Encounters Encounter Date Encounter Type Care Provider Facility Start: 07-18-2023 End: 07[facility]18[facility] Start: 06-25-2023 End: 06-25-2023 ambulatory Mike Yuan Other [facility] Other Start: 06-25-2023 Telephone encounter Mike Yuan [facility] Start: 06-03-2023 End: 06-04-2023 ambulatory Lesley Greene MD Facility:[facility] Start: 03-25-2023 End: 03-26-2023 ambulatory Lesley Greene MD Facility:[facility] Start: 02-04-2023 End: 02-04-2023 ambulatory Mike Yuan Other [facility] Other Start: 02-04-2023 Patient encounter procedure Mike Yuan [facility] Start: 12-12-2022 End: 12-12-2022 ambulatory Berta Hernandez Facility:[facility] Start: 12-12-2022 End: 12-12-2022 ambulatory PRODUCT SUPPORT SPECIALIST Berta Hernandez Work Phone: [facility] Work Phone: Start: 12-12-2022 End: 12-12-2022 Patient encounter procedure PRODUCT SUPPORT SPECIALISTDago Hernandez Work Phone: [facility] Work Phone: Start: 11-02-2022 End: 11-02-2022 ambulatory Mike Yuan Other [facility] Other Start: 11-02-2022 Office outpatient vi sit 25 minutes Mike Yuan [facility] Start: 10-17-2022 End: 10-19-2022 Evaluation and management of inpatient SHAIKH Sade KINGFANNY Facility:[facility] Start: 10-09-2022 ambulatory NARENDRANATH LAKSHMIPATHY . Facility:[facility] Start: 09-24-2022 End: 09-25-2022 ambulatory NARENDRANATH LAKSHMIPATHY . Facility:[facility] Start: 09-18-2022 End: 09-19-2022 ambulatory NARENDRANATH LAKSHMIPATHY . Facility:[facility] Start: 07-31-2022 ambulatory NARENDRANATH LAKSHMIPATHY . Facility:[facility] Start: 07-09-2022 Encounter for other preprocedural examination DR CYDNEY REDMOND [facility] Start: 07-05-2022 End: 07-06-[address] CYDNEY REDMOND Facility:[facility] Start: 07-05-2022 End: 07-06-2022 Encounter for other preprocedural examination DR CYDNEY REDMOND Facility:[facility] Start: 06-26-2022 Encounter for preprocedural cardiovascular examination DR DOCTOR DE LA CRUZ [facility] Start: 06-26-2022 Encounter for preprocedural laboratory examination DR DOCTOR DE LA CRUZ [facility] Start: 06-22-2022 End: 06-23-[address] [...] End: 12-06-2021 Emergency department patient visit MIKE YUAN [facility] Start: 12-06-2021 End: 12-06-2021 Emergency department patient visit Skye Garcia MD Work Phone: [facility] ED Comment on above: Closed fracture of s haft of left humerus, unspecified fracture morphology, initial encounter (Primary Dx) Start: 11-23-2021 End: 11-24-[address] MIKE YUAN Facility:[facility] Start: 11-07-2021 End: 11-07-[address] MIKE YUAN Facility:[facility] Start: 09-05-2021 End: 09-06-2021 ambulatory [facility] Start: 09-05-2021 End: 09-06-2021 Subsequent hospital visit by physician Zenia Molina MD Work Phone: [facility] Comment on above: Post-op pain (Primar y Dx) Start: 08-22-2021 End: 08-22-2021 ambulatory [facility] Start: 08-22-2021 End: 08-22-2021 Subsequent hospital visit by physician Zenia Molina MD Work Phone: [facility] Start: 08-02-2021 End: 08-07-2021 ambulatory [facility] Start: 08-02-2021 End: 08-04-2021 Subsequent hospital visit by physician Janae Barnhart Dr Room 2 [facility] Radiology Comment on above: Arrived Start: 12-06-2020 End: 12-08-2020 Evaluation and management of inpatient [facility] Start: 12-06-2020 End: 12-09-2020 ambulatory [facility] Start: 12-06-2020 End: 12-08-2020 Evaluation and management of inpatient Hernandez Tovar MD Work Phone: [address] Neuro Comment on above: Post-op pain (Primar y Dx); Muscle spasm Start: 12-06-2020 End: 12-08-2020 Subsequent hospital visit by physician Hernandez Tovar MD Work Phone: [facility] Radiology Comment on above: Pain Start: 11-25-2020 End: 11-28-2020 [facility] Start: 11-25-2020 End: 11-27-2020 Preprocedural examination done [place] 8 [facility] Radiology Start: 11-25-2020 End: 11-27-2020 Subsequent hospital visit by physician Roc Xray Room 8 [facility] Radiology Comment on above: Radiculopathy, unspe cified spinal region; Pseudoarthrosis of lumbar spine; Pre-op examination Start: 06-04-2019 End: 06-08-2019 Evaluation and management of inpatient Hernandez Uyen Tovar MD Work Phone: [facility] Comment on above: Post-op pain (Primar y Dx); Lumbar degenerative disc disease Procedures Date Procedure Procedure Detail Performing Clinician Start: 12-12-2022 CT of head without contrast IRAIS Merchant[employer]brown Hernandez Work Phone: Start: 12-06-2021 End: 12-06-2021 Radex ribs uni w/posteroant ch minimum 3 views Skye Garcia MD Work Phone: Start: 09-06-2021 GLUCOSE, WHOLE BLOOD Niranjan Molina MD Work Phone: Start: 09-06-2021 Dup-scan xtr veins unilateral/limited study Shmuel Wyatt PRODUCT SUPPORT SPECIALIST - DESK REPORTER Work Phone: Start: 09-06-2021 GLUCOSE, WHOLE BLOOD [...] Result Start: 12-08-2020 Blood count complete automated rGover Morillo PRODUCT SUPPORT SPECIALIST - DESK REPORTER Work Phone: Start: 12-08-2020 Gluc bld gluc [...] crv sac spi w/skull 2/3 vw Belinda Monroe PRODUCT SUPPORT SPECIALIST - DESK REPORTER Work Phone: Start: 06-08-2019 Gluc bld gluc [...] MD Work Phone: Start: 06-04-2019 Antibody screen Hernadnez Tovar MD Work Phone: Start: 06-04-2019 End: 06-04-2019 Arthrodesis posterior interbody lumbar Hernandez Tovar MD Work Phone: Start: 06-04-2019 Blood typing serologic abo Susie Lee PRODUCT SUPPORT SPECIALIST - DESK REPORTER Work Phone: Start: 06-04-2019 End: 06-04-2019 Basic metabolic panel calcium total Susie Lee PRODUCT SUPPORT SPECIALIST - DESK REPORTER Work Phone: Plan of Treatment Date Care Activity Detail Author Start: 03-09-2024 Pneumococcal 65+ years Vaccine (2 of 2 - PPSV23) Pneumococcal 65+ years Vaccine (2 of 2 - PPSV23) [facility] Start: 03-09-2024 Pneumococcal 65+ years Vaccine (3 - PPSV23 or PCV20) Pneumococcal 65+ years Vaccine (3 - PPSV23 or PCV20) [employer] Start: 09-06-2022 [facility]inine [facility] Start: 09-06-2022 Potassium monitoring [facility] Start: 08-02-2022 Creatinine measurement Creatinine monitoring [facility] Start: 08-02-2022 Hemoglobin A1c measurement A1C test (Diabetic or Prediabetic) [employer] Start: 08-02-2022 Potassium [facility] Start: 01-25-2022 Influenza vaccination Flu vaccine (#1) [facility] Start: 12-07-2021 Creatinine measurement Creatinine monitoring [employer] Work Phone: Start: 12-07-2021 Potassium monitoring Potassium monitoring [facility] Phone: Start: 11-25-2021 Creatinine measurement Creatinine monitoring [facility] Phone: Start: 11-25-2021 Depression Screen [facility] Start: 11-25-2021 Potassium monitoring Potassium monitoring [facility] Phone: Start: 09-05-2021 End: 09-05-2021 Admission to same day surgery center 09/05/2021 Surgery IP Unit Zenia Molina MD [address] [facility] SHOULDER TOTAL ARTHROPLASTY REVERSE [facility] Comment on above: SHOULDER TOTAL ARTHROPLASTY REVERSE Start: 09-05-2021 End: 09-05-2021 Arthroplasty glenohumeral joint total shoulder SHOULDER TOTAL ARTHROPLASTY REVERSE ROTATOR CUFF ARTHROPATHY, LEFT SHOULDER 09/05[facility]21 [facility] Start: 09-05-2021 Subsequent hospital visit by physician 09/05/2021 Hospital Encounter IP Unit Zenia Molina MD [address] [place] [address] [facility] Start: 08-22-2021 End: 08-22-2021 Admission to same day surgery center 08/22/2021 Surgery IP Unit Zenia Molina MD [address] [place] [address] SHOULDER TOTAL ARTHROPLASTY REVERSE [facility] Comment on above: SHOULDER TOTAL ARTHROPLASTY REVERSE Start: 08-22-2021 End: 08-22-2021 Arthroplasty glenohumeral joint total shoulder SHOULDER TOTAL ARTHROPLASTY REVERSE ROTATOR CUFF REPAIR 08/22/2021 11:30 AM [facility] Start: 08-22-2021 Subsequent hospital visit by physician 08/22/2021 Hospital Encounter IP Unit Zenia Molina MD [address] [place] [address] [facility] Start: 04-16-2021 COVID-19 Vaccine (3 - Booster for Pfizer series) COVID-19 Vaccine (3 - Booster for Pfizer series) [facility] Start: 01-25-2021 Influenza vaccination Flu vaccine (#1) [facility] Work Phone: Start: 12-23-2020 End: 12-23-2020 Patient encounter procedure 12/23/2020 Office Visit Neurosurgery Hernandez Tovar MD [address] [address] [phone] [facility] Neurosurgery Start: 12-16-2020 End: 12-16-2020 Patient encounter procedure 12/16/2020 Office Visit Neurosurgery Hernandez Tovar MD [address] [address] [phone] [facility] Neurosurgery Start: 12-01-2020 End: 12-01-2020 Admission to same day surgery center 12/01/2020 Surgery IP Unit Hernandez Tovar MD [address] [address] [phone] L 4-5 PLIF (POSTERIOR LUMBAR INTERBODY FUSION) [...] Hospital Encounter IP Unit Hernandez Tovar MD [address] [address] [phone] [facility] Start: 11-20-2020 Annual Wellness Visit (AWV) Annual Wellness Visit (AWV) [facility] Phone: Start: 06-05-2020 Creatinine monitoring Creatinine monitoring [facility] Phone: Start: 06-05-2020 Potassium monitoring Potassium monitoring [facility] Phone: Start: 02-19-2020 Abdominal aortic aneurysm screening AAA screen [facility] Start: 02-19-2020 Pneumococcal 65+ years Vaccine (1 of 1 - PPSV23) Pneumococcal 65+ years Vaccine (1 of 1 - PPSV23) [facility] Phone: Start: 02-19-2020 Pneumococcal 65+ years Vaccine (2 of 2 - PPSV23) Pneumococcal 65+ years Vaccine (2 of 2 - PPSV23) [facility] Phone: Start: 06-19-2019 End: 06-19-2019 Patient encounter procedure 06/19/2019 Office Visit Neurosurgery Hernandez Tovar MD [address] [facility], [address] [place], [place] [id number] [facility] Start: 01-25-2019 Influenza vaccination Flu vaccine (#1) [facility] Phone: Start: 04-23-2016 Shingles Vaccine (2 of 3) Shingles Vaccine (2 of 3) [facility] Start: 2005 Colon cancer screen colonoscopy Colon cancer screen colonoscopy [facility] Phone: Start: 2005 Screening for malignant neoplasm of colon Colon cancer screen colonoscopy [facility] Phone: Start: 2005 Shingles Vaccine (1 of 2) Shingles Vaccine (1 of 2) [facility] Phone: Start: 02-19-2000 Screening for malignant neoplasm of colon [facility] Start: 1995 Diabetes screen Diabetes screen [facility] Phone: Start: 1995 Lipid screen Lipid screen [facility] Phone: Start: 1995 Prostate specific antigen measurement Prostate Specific Antigen (PSA) Screening or Monitoring [facility] Start: 1974 DTaP/Tdap/Td vaccine (1 - Tdap) DTaP/Tdap/Td vaccine (1 - Tdap) [facility] Start: 1973 Diabetic microalbuminuria test Diabetic microalbuminuria test [facility] Phone: Start: 1973 Diabetic retinal exam Diabetic retinal exam [facility] Start: 1973 Hepatitis C screening Hepatitis C screen [facility] Start: 1973 Urine screening for protein Diabetic microalbuminuria test [facility] Start: 1970 HIV screen HIV screen [facility] Phone: Start: 1970 HIV screening HIV screen [facility] Phone: Start: 1967 COVID-19 Vaccine (1) COVID-19 Vaccine (1) [facility] Phone: Start: 1966 DTaP/Tdap/Td vaccine (1 - Tdap) DTaP/Tdap/Td vaccine (1 - Tdap) [facility] Phone: Start: 1965 Diabetic foot examination Diabetic foot exam [facility] Start: 1965 Diabetic retinal exam Diabetic retinal exam [facility] Phone: Start: 1965 Hemoglobin A1c measurement A1C test (Diabetic or Prediabetic) [facility] Phone: Start: 1965 Lipid panel [employer] Start: 1955 Annual Wellness Visit (AWV) Annual Wellness Visit (AWV) [facility] Start: 1955 Hepatitis C screen Hepatitis C screen [facility] Phone: Start: 1955 Hepatitis C screening Hepatitis C screen [facility] Continuous pulse oximetry Pulse oximetry, continuous Respiratory Care Routine Every 4hr until discontinued starting 12/06/2020 [facility] Phone: Comment on above: Every 4hr until discontinued starting Glucose [Mass/volume ] in Serum or Plasma [facility] Phone: Comment on above: 4X Daily (AC & HS) until discontinued st arting 12/06/2020 As Needed until disc ontinued starting 12/06/2020 End: 08-22-2021 Glucose [Mass/volume] in Serum or Plasma POCT Glucose Point of Care Testing STAT One Time for 1 Occurrences starting 08/22/2021 until 08/22/2021 [facility] Comment on above: One Time for 1 Occurrences starting 07/26 until 08/22/2021 Glucose [Mass/volume ] in Serum or Plasma POCT Glucose Point of Care Testing STAT As Needed until discontinued starting 09/05/2021 [facility] Phone: Comment on above: As Needed until discontinued starting Glucose [Mass/volume ] in Serum or Plasma [facility] Phone: Comment on above: 4X Daily (AC & HS) until discontinued st arting 09/05/2021 As Needed until disc ontinued starting 09/05/2021 Incentive spirometry Incentive s pirometry Respiratory Care Routine Every 2hr while awake until discontinued starting 06/04/2019 [facility] Phone: Comment on above: Every 2hr while awake until discontinued starting 06/04/2019 Initiate Oxygen Ther apy Protocol Initiate Oxygen Therapy Protocol Respiratory Care Routine Daily until discontinued starting 06/04/2019 [facility] Phone: Comment on above: Daily until discontinued starting 2019 Oxygen therapy [Mini mum Data Set] Initiate Oxygen Therapy Protocol Respiratory Care Routine Daily until discontinued starting 12/06/2020 [facility] Phone: Comment on above: Daily until discontinued starting 2020 Oxygen therapy [Mini mum Data Set] Initiate Oxygen Therapy Protocol Respiratory Care Routine Daily until discontinued starting 09/05/2021 [facility] Phone: Comment on above: Daily until discontinued starting 2021 Pulse oximetry, continuous Pulse oximetry, continuous Respiratory Care Routine Every 4hr until discontinued starting 06/04/2019 [employer] Work Phone: Comment on above: Every 4hr until discontinued starting Spirometry panel Incentive janiya metry Respiratory Care Routine Every 2hr while awake until discontinued starting 12/06/[address] [facility] Work Phone: Comment on above: Every 2hr while awake until discontinued starting 12/06/2020 Surgical Pathology [facility] Work Phone: Comment on above: Release Upon Ordering for 1 Occurrences starting 12/06/2020 ONE TIME for 1 Occur rences starting 06/04/2019 Immunizations Immunization Date Immunization Notes Care Provider Fa cility 11-14-2020 COVID-19, Pfizer, PF , 30mcg/0.3mL Hernandez Tovar MD Work Phone: [employer] Work Phone: 10-27-2020 COVID-19, Pfizer, PF , 30mcg/0.3mL Hernandez Tovar MD Work Phone: [facility] Quality Payers Date Payer Category Payer Self-pay 2022 [employer] ( and others) 2022 Medicare 2018 Medicare MEDICARE MEDICAR E PART A AND B xxxxxxxxxxx 2018-Present [phone] [place] [address] xxxxxxxxxxx [id number] 2017 [employer] ( and others) [facility] xxxxxxxxx 2017-Present xxxxxxxxx [id number] 1959 [employer] ( and others) [id number] .7.3.492867.315 1959 Medicare [id number] [id number] .7.3.689067.315 1959 Medicare [id number] 1955 Unknown [id number] 2.16.840.1.393801.3.579.2 .182 1955 Unknown [id number] 2.16.840.1.918121.3.579.2 .182 1955 Unknown [id number] 2.16.840.1.827447.3.579.2 .182 1955 Unknown [id number] 2.16.840.1.696781.3.579.2 .173 1955 Unknown [id number] 2.16.840.1.040120.3.579.2 .173 1955 Unknown [id number] 2.16.840.1.411862.3.579.2 .173 1955 Unknown [id number] 2.16.840.1.798665.3.579.2 .173 1955 Unknown [id number] 2.16.840.1.780858.3.579.2 .173 1955 Unknown [id number] 2.16.840.1.729138.3.579.2 .593 1955 Unknown [id number] 2.16.840.1.616178.3.579.2 .593 1955 Unknown [id number] 2.16.840.1.204560.3.579.2 .593 1955 Unknown [id number] 2.16.840.1.571976.3.579.2 .593 1955 Unknown [id number] 2.16.840.1.800446.3.579.2 .593 1955 Unknown [id number] 2.16.840.1.276543.3.579.2 .593 1955 Unknown [id number] 2.16.840.1.365026.3.579.2 .593 1955 Unknown [id number] 2.16.840.1.805998.3.579.2 .593 1955 Unknown [id number] 2.16.840.1.307789.3.579.2 .593 1955 Unknown [id number] 2.16.840.1.374180.3.579.2 .593 1955 Unknown [id number] 2.16.840.1.949928.3.579.2 .593 1955 Unknown [id number] 2.16.840.1.388845.3.579.2 .593 1955 Unknown [id number] 2.16.840.1.366196.3.579.2 .593 1955 Unknown [id number] 2.16.840.1.273716.3.579.2 .593 1955 Unknown [id number] 2.16.840.1.986989.3.579.2 .593 1955 Unknown [id number] 2.16.840.1.936404.3.579.2 .593 1955 Unknown [id number] 2.16.840.1.893776.3.579.2 .196 1955 Unknown [id number] 2.16.840.1.702851.3.579.2 .196 [facility] ( and others) [id number] 2.16.840.1.844613.19 Medicare Medicare [id number] Unknown [id number] 2.16.840.1.372940.3.579.2 .531 Social History Date Type Detail Facility Start: 11-25-2020 End: 08-22-2021 Tobacco smoking status NHIS Former smoker [facility] End: 05-27-1984 History of tobacco use Current smoker [facility] Start: 11-25-2020 End: 08-22-2021 Tobacco use and exposure Never used [facility] Start: 11-25-2020 End: 12-06-2021 Alcohol intake Ex-drinker (finding) [facility] Work Phone: Start: 11-25-2020 History 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 Financial 5 [facility] Work Phone: Start: 11-25-2020 History SDOH Food Worry 1 [facility] Phone: Start: 1955 Sex Assigned At Not on file M [employer] Work Phone: Start: 08-12-2021 End: 12-06-2021 Exposure to SARS-CoV-2 (event) Not sure [facility] Start: 02-16-2021 Tobacco smoking stat us [facility] Never smoked tobacco [facility] Sex Assigned At Sex Assigned At Bir [facility] Other Start: 1955 Sex Assigned At Male F [facility] Medical Equipment Procedure Code Equipment Code Equipment Original Text Equipment Identifier Dates Graft Canc Chip [id number] 15cc - [id number] Start: 06-04-2019 Apollo-Cellular Bon e Matrix 5cc - [id number] Start: 06-04-2019 Screw Polyaxial Reline-O 2s 6.5x55mm [id number] Start: 06-04-2019 Screw Lk Reline Opn Tulip 5.5mm [id number] Start: 06-04-2019 Impl Cage Spine Mas 28 Mm Posterior [id number] Start: 06-04-2019 Impl Spine Jose Armando R volodymyr-O 5.5x75mm [id number] Start: 06-04-2019 Sys Fix Reline 0 x Conn 40 50mm 5.5lp Adj [id number] Start: 06-04-2019 Screw O Reline 21f90ov [id number] St art: 12-06-2020 Kit Bne Grft M R hbmp-2 4.2mg Inj 5ml Contain Ndl 20ga [id number] Start: 12-06-2020 Cage Spnl Lordtc 80x90u42 Mm Crv Coalesce [id number] Start: 12-06-2020 Graft Bne Sub 30 cc 1.7-10mm Canc Chip Morselized Frz Dry - [id number] Start: 12-06-2020 Screw Spnl L55mm Dia6.5mm Post Thoracolumbosacral Polyax 2s [id number] Start: 12-06-2020 Screw Spnl Dia5. 5mm Opn Tulip Sg Reline [id number] Start: 12-06-2020 Jose Armando Spnl Lordtc 5.5x90 Mm Ti Reline-O [id number] Start: 12-06-2020 Connector Spnl C rss Lo Prof Adj Reline-O 5.5 X 45-65 Mm [id number] Start: 12-06-2020 Graft Bne Sub 30 cc 1.7-10mm Canc Chip Morselized Frz Dry - [id number] Start: 12-06-2020 Baseplate Duc D ia25mm +3mm Lat Offset Augmented Aequalis - [id number] Start: 09-05-2021 Screw Bone L35mm Dia6.5mm Ti St Full Thrd Ctrl For Duc - [id number] Start: 09-05-2021 Screw Bone L30mm Dia5mm Ti St Full Thrd Periph For Duc - [id number] Start: 09-05-2021 Screw Bne Periph 5x38 Mm Shldr Reversed Ns Aequalis Perform - [id number] Start: 09-05-2021 Sphere Duc Dia3 9mm +3mm Lat Offset Reversed Aequalis - [id number] Start: 09-05-2021 Insert Shldr C D ia39mm Thk+6mm 7.5deg Reversed Aequalis - [id number] Start: 09-05-2021 Tray Hum Thk+0mm 0mm Offset Cntr Reversed Aequalis Ascend - [id number] Start: 09-05-2021 Insert Shldr C D ia39mm Thk+6mm 7.5deg Reversed Aequalis - [id number] Start: 09-05-2021 Stem Hum L74mm D ia3b 132.5deg Std Shldr Ptc Aequalis Ascend - [id number] Start: 09-05-2021 Clinical Notes 06-04-2019 to 07-18-2023 Note Date & Type Note Facility 07-18-2023 Note [facility] Cardiology Clinic Note Chief Complaint: [...] than his usual. He was admitted to [facility] back in September 2022 for falls/orthostatic syncope. [...] and at bedtime., Disp: , Rfl: HYDROcodone-acetaminophen (Evergreen) 5-325 mg tablet, take 1 tablet by [...] effusion. The cardiomediastina (more content not included)... [facility] 07-18-2023 Note Patient here for 1 y ear follow up CAD, RBBB, and hypertension. Had shoulder surgery after last apt. Says he has chest discomfort and SOB w/ stairs, but this is no different than his usual. He was admitted to [facility] back in September 2022 for falls/orthostatic syncope. Had echo and carotid duplex. Review of Systems Cardiovascular: Positive for chest pain ( discomort with stairs ) and dyspnea on exertion. Musculoskeletal: Positive for arthritis, back pain, falls, joint pain and muscle weakness. Neurological: Positive for dizziness, light-headedness, loss of balance and weakness. All other systems reviewed and are negative. [facility] 02-04-2023 Evaluation note Encounter Date Diagnosis Assessment [...] and electrolytes. Pt agrees to neurology referral. [facility] Other 06-09-2023 Evaluation note* Encounter Date Diagnosis [...] and call next week w home readings. [facility] Other 04-25-2023 NoteCONSULTATION CONSULTATION DATE: 09/18/2022 TO: [...] our patients to inform us about any xpzh-nvz-nceuvmc medications or herbal remedies/nutritional supplements/alternative remedies. 2. [...] treatment options with their primary care provider.[id number] Note CONSULTATION CONSULTATION DATE: 03/01/2022 This is [...] 75 mg b.i.d., Lyrica 100 mg t.i.d., Evergreen 5/325 b.i.d. The patient is also under the care of an orthopedic physician in [place] and received a right shoulder injection today. [...] decrease his Lyrica to b.i.d. 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 He is encouraged to take his vitamins and to continue with daily exercises. The patient agreed to move forward with the procedure and will be followed in the clinic thereafter.[facility] [id number] NoteCONSULTATION CONSULTATION DATE: 01/25/2022 HISTORY OF PRESENT [...] in a sling and is awaiting the CO to send a referral to physical therapy. He does complain of diffuse lower back pain today that is no-radiating in nature. His most recent imaging does show bilateral foraminal narrowing as well as multilevel disc arthropathy. The patient reports all activity aggravates his pain. He is 8/10 today. Medications include Evergreen 5/325 b.i.d., Lyrica 100 mg t.i.d., duloxetine [...] discuss with the patient regarding seeing a lpn home health, and he states he [facility]. In regards to his back, I explained the benefits of the rhizotomy series and which the patient agrees to try. We will move forward with the #1 bilateral MBB to L1, L2 and L3, L4 which is above the level of his fusion. Patient will be brought to the clinic post procedure and agrees to move forward.[id number] Hospital Discharge instructions* Instructions* Skye Garcia MD - 12/06/2021 Remain in splint. Tylenol as needed for pain. Evergreen in place Tylenol for pain not controlled with Tylenol. With orthopedics tomorrow. Return immediately if you develop any worsening redness pain swelling numbness or tingling of your left forearm hands or fingers or any other acute concerns * Attachments The following attachments cannot be sent through Care Everywhere. * Arm Fracture (Central African) documented [facility] [employer] Work Phone: 1(266) 828-555606-30-2022 NoteCONSULTATION CONSULTATION DATE: 11/23/2021 This is a [...] Current medications include Diclofenac 50 mg b.i.d., Evergreen 5/325 b.i.d., Lyrica 100 mg t.i.d., amitriptyline [...] of care and all questions were answered. [facility] Signed and Approved by: DEVAN MAGALLANES . 11/30/2021 16:28:00[facility]04-13-2022 History of Present illness Narrative* Claudia Dasilva RN - 09/06/2021 2:01 PM EDT Reviewed discharge instructions with patient. All questions answered at this time. Patient waiting for ride, then will leave via private auto at discharge. * Brigid Lanza PTA - 09/06/2021 1:25 PM EDT Physical Therapy Facility/Department: [facility] Daily Treatment Note [...] 09/06/2021 1:21 PM EDT Occupational Therapy Facility/Department: [facility] Daily Treatment Note [...] has a past medical history of A-fib ([facility]), CAD (coronary artery disease), Chronic back pain, Chronic headaches, Diabetes ([facility]), Hypertension, Restless leg syndrome, Rheumatoid arthritis (HCC), [...] forearm, wrist and digit AROM and light lead data architect strengthening. Therapy Time Individual Concurrent Group Co-treatment Time In 1250 Time Out 1317 Minutes 27 Kristy Louis OT * Kristy Louis OT - 09/06/2021 10:42 AM EDT [facility] Inpatient/Observation/Outpatient Rehabilitation Date: 09/06/2021 Patient Name: Deondre Lr [] Inpatient Acute/Observation [] Outpatient : 1955 [] Pt no showed for scheduled appointment [x] Pt refused/declined therapy at this time due to: Not wanting to get out of bed, requested to come back after lunch for dressing before discharge. [] Pt cancelled due to: [] No Reason Given [] Sick/ill [] Other: Therapist/Kiln Tester will attempt to see this patient, at our earliest opportunity. Kristy Louis OT Date: 09/06/2021 * Brigid Lanza PTA - 09/06/2021 10:18 AM EDT Physical Therapy Facility/Department: 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 Reports eating once daily. [...] No discharge needs at this time Contact: [phone] * Shmuel Wyatt, PRODUCT SUPPORT SPECIALIST - DESK REPORTER - 09/06/2021 7:26 AM EDT Department of [...] Physical therapy. Has outpatient PT scheduled at [facility] 5: D/C Plan: Home 6: Continue Pain Control. Evergreen 5-325, 1-2 tabs every 4 hours prn [...] plan is home with out-patient therapy at [facility]. This was set up prior to surgery. He does not have advance directives but his would make decisions if he could not. AGRICULTURE WORKER to monitor andassist with any needs [...] 09/05/2021 1:05 PM EDT [facility] and report given to [...] and shown to . documented in this [facility] Phone: [phone]) 541-650904-13-2022 Note [facility] Vascular Lower Extremities DVT Study Procedure Patient Name GERONIMO Koroma Date of Study 09/06/2021 Date of 1955 Gender Male Age 66 year(s) Race Room Number 0302 Corporate ID [id number] # Patient Acct [id number] # MR # [id number] Grey Goods Marker Zunilda Morales RVT Interpreting Physician Tad Mack Referring Shmuel Wyatt, Referring Physician Nurse IRAIS-DESK REPORTER Practitioner Additional Comments Results were faxed to the floor 09/06/2021 @ 3044. Procedure Type of Study: Veins: Lower Extremities [...] !Phasic! ! ! + (more content not included)...[facility] [id number] Hospital Discharge instructions* Discharge Instr - Activity* [...] at most local grocery stores, pharmacies, and [employer]. If you have any questions about your [...] call Dr. Molina on his cell phone, [phone]. 10. Follow-up with your surgeon and physical [...] daily for 4 weeks. documented in this [facility] Work Phone: 1(840) 810-119803-29-2022 History of Present illness Narrative* Elena Clayton [...] EST Call received from RAEANN Cheung at [facility] in [place]. Requesting results of chest x- ray done 08/02/21 to complete medical clearance. Skye states she gave the patient the contact information for silk top hat body maker and also states she has notified Julieta at Dr. Molina's office of these events. * Marta Ray RN - 08/03/2021 12:23 PM EST Patient instructed to contact [facility] regarding follow up with a silk top hat body maker. Patient states he has thenumber and will reach out today. * Marta Ray RN - 08/03/2021 10:59 AM EST Attempted to contact patient regarding cardiology follow up needed prior to surgery on 08/22/21. Left message for patient to return call to [facility]. documented in this encounterMascoma Phone: [phone] Hospital Discharge instructions* Instructions* Zunilda Cool RN [...] activities for 24 hours. documented in this encounterMascoma Phone: [phone]) 472-411707-15-2021 Hospital Discharge instructions* Discharge Instr - Activity* [...] Diabetic Diet * Additional Instructions* Grover Morillo, PRODUCT SUPPORT SPECIALIST - DESK REPORTER - 12/08/2020 dication given may have significant [...] your physician 11) Call your doctor at [phone] for an appointment (or follow up as [...] call OFFICE. The 24- hour phone is [phone] 13) If you are unable to contact [...] Care Everywhere. * Lumbar Spinal Fusion: Post-op (Central African) * cephalexin (Central African) * fentanyl transdermal (skin patch) (Central African) * acetaminophen and hydrocodone ([place] African) * diazepam (oral) (Central African) * senna (Central African) documented in this [facility] Work Phone: 1(784) 969-924607-15-2021 History of Present illness Narrative* Grover Morillo, IRAIS - DESK REPORTER - 12/08/2020 8:42 AM EDT Progress Note Date:12/08/2020 Room:[place] [address] Patient Name:Deondre Lr Date of :1955 Age:65 [...] he sees a pain management doctor in [place], [place]. Patient notes that his pain management [...] can gently cleanse in shower. * Anastacia Tate, OTR/L - 12/07/2020 10:10 AM EDT NATALEE BAINS OCCUPATIONAL THERAPY EVALUATION - ACUTE NAME: Deondre Lr : 1955 (65 y.o.) CODE STATUS: Full Code Room: [place] [address] Date of Service: 12/07/2020 Patient Diagnosis(es): Pseudoarthrosis [...] 10/28/2013 Past Medical History: Diagnosis Date A-fib ([facility]) CAD (coronary artery disease) Chronic back pain Chronic headaches Diabetes (HCC) Hypertension Restless leg syndrome Rheumatoid arthritis (HCC) Sleep apnea Past Surgical History: Procedure Laterality Date LUMBAR FUSION N/A 06/04/2019 L 4-5, L5-S1 DECOMPRESSION L 4-5, L5-S1 POSTEROLATERAL FUSION L5-S1 PLIF [facility] [place] LUMBAR FUSION N/A 12/06/2020 L3-4, L4-5 POSTERIOR LUMBAR INTERBODY FUSION performed by Hernandez Tovar MD at [facility] [place] SHOULDER SURGERY SPINE SURGERY Restrictions Restrictions/Precautions: [...] Assistance: Independent (cane) Transfer Assistance: Independent Active Stna: Yes Occupation: Retired Type of occupation: multiple [...] old man from home who presents to [facility] with the above deficits s/p planned spinal [...] Physical Therapy Med Surg Initial Assessment Facility/Department: [address] NEURO Room: N222/N222-01 NAME: Deondre Lr [...] 10/28/2013 Type 2 diabetes mellitus without complication ([facility]) 10/28/2013 Past Medical History: Diagnosis Date A-fib ([facility]) CAD (coronary artery disease) Chronic back pain Chronic headaches Diabetes ([facility]) Hypertension Restless leg syndrome Rheumatoid arthritis ([facility]) Sleep apnea Past Surgical History: Procedure Laterality Date LUMBAR FUSION N/A 06/04/2019 L 4-5, L5-S1 DECOMPRESSION L 4-5, L5-S1 POSTEROLATERAL FUSION L5-S1 PLIF [facility] [place] LUMBAR FUSION N/A 12/06/2020 L3-4, L4-5 POSTERIOR LUMBAR INTERBODY FUSION performed by Hernandez Tovar MD at [facility] [place] SHOULDER SURGERY SPINE SURGERY Chart Reviewed: [...] Assistance: Independent (cane) Transfer Assistance: Independent Active Stna: Yes Occupation: Retired Type of occupation: multiple [...] 1: Pt to complete HEP with indep metal polisher goals metal polisher goal 1: Pt to complete bed mobility with indep metal polisher goal 2: Pt to complete transfers with indep metal polisher goal 3: Pt to ambulate 50-150ft with LRD and indep metal polisher goal 4: Pt to manage 3 steps with HR and indep [facility] (6 CLICK) BASIC MOBILITY AM-PAC Inpatient Mobility [...] to accomplish the task * Zan Arrieta [facility] - 12/06/2020 3:52 PM EDT PHARMACY NOTE Deondre Lr was ordered adalimumab. Per the [facility] Formulary Committee Policy, this medication is non-formulary and not stocked by pharmacy. The medication can be reordered at discharge. Zan Arrieta, PharmD, BCPS, A Staff Pharmacist 12/06/2020 3:52 PM documented in this encounterMercy Health [email or web address] [email or web address] Phone: [phone]) 443-892207-14-2021 NoteFLUORO FOR SURGICAL PROCEDURES : 12/06/2020 10:30 AM CLINICAL HISTORY: R52 Pain ICD10. COMPARISON: None available. Intraoperative fluoroscopy was provided for Dr. Guy melendez. A total of 71.7 seconds of fluoroscopy was used, with 4 fluoroscopic stills saved. No diagnostic images were obtained. Please see Dr. Tovar surgical notes for completeness.[facility] Phone: 1(628) 382-925507-13-2021 NoteFLUORO FOR SURGICAL PROCEDURES : 12/06/2020 10:30 AM CLINICAL HISTORY: R52 Pain ICD10. COMPARISON: None available. Intraoperative fluoroscopy was provided for Dr. Guy melendez. A total of 71.7 seconds of fluoroscopy was used, with 4 fluoroscopic stills saved. No diagnostic images were obtained. Please see Dr. Tovar surgical notes for completeness. Interpreted by: Cirilo Moreland MD Signed by: Cirilo Moreland MD 12/07/20 Final resultAnimas Surgical Hospital01-11-2020 History of Present illness Narrative* Nathan Tavares, BUILD ENGINEER - 06/06/2019 11:53 AM EST Physical Therapy Med Surg Daily Treatment Note Facility/Department: [address] NEURO Room: N222/N222-01 NAME: Deondre Lr [...] L5-S1 PLIF performed by Hernandez Tovar, Fanny [facility] [place]OULDER SURGERY SPINE SURGERY Restrictions Restrictions/Precautions: [...] Sit to Supine: Stand by assistance Comment: rodolfoos good log roll technique without cueing. Transfers [...] benefit from continued therapy after discharge Goals shelter goals shelter goal 1: pt to be indep with bed mobility utilizing log roll metal polisher goal 2: pt to be indep with transfers shelter goal 3: pt to ambulate >100 ft with WW vs cane mod indep shelter goal 4: pt to navigate 4 steps with 1 HR, cane supervision assist Patient Goals Patient goals : to go home PLAN Safety Devices Type of devices: All fall risk precautions in place;Bed alarm in place;Call light within reach;Leftin bed;Nurse notified [facility] (6 CLICK) BASIC MOBILITY AM-PAC Inpatient Mobility Raw Score : 18 Therapy Time Individual Time In 1102 Time Out 1116 Minutes 14 Gait: 11 BM/Trsf: 3 Nathan Tavares, BUILD ENGINEER, 06/06/19 at 11:53 AM * Hernandez Tovar MD - 06/06/2019 9:02 AM EST Patient: Deondre Lr Unit/Bed: N222/N222-01 Date of : 1955 Acct: [id number] Admitting Diagnosis: Lumbar degenerative disc disease [M51.36] [...] AM EST Physical Therapy Missed Treatment Facility/Department: [facility] NAME: Deondre Lr : 1955 (64 y.o.) Account: [id number] Gender: male Chart reviewed, attempted PT at [...] (64 y.o.) CODE STATUS: Full Code Room: [place] [address] Date of Service: 06/05/2019 Patient Diagnosis(es): Lumbar [...] and on stairs) Transfer Assistance: Independent Active Stna: Yes OBJECTIVE: Orientation Status: Orientation Overall Orientation [...] from home with spouse who presents to [facility] with the above deficits which impact his [...] Physical Therapy Med Surg Initial Assessment Facility/Department: [address] NEURO Room: N222/N222-01 NAME: Deondre Lr [...] and on stairs) Transfer Assistance: Independent Active Stna: Yes OBJECTIVE: Vision: Within Functional Limits Hearing: [...] Goals: Patient goals : to go home metal polisher goals shelter goal 1: pt to be indep with bed mobility utilizing log roll metal polisher goal 2: pt to be indep with transfers shelter goal 3: pt to ambulate >100 ft with WW vs cane mod indep metal polisher goal 4: pt to navigate 4 steps with 1 HR, cane supervision assist [facility] (6 CLICK) BASIC MOBILITY AM-PAC Inpatient Mobility [...] - 06/04/2019 3:31 PM EST Report to [address] [place] [address] RN, pt currently on his cell phone and calm. Call placed to his son Luis to inform him of his dad's room and ph.number. Transport at bedside. * Marium Marley RN - 06/04/2019 12:45 PM EST Lab at bedside for lab draw. * Skye Perkins RN - 06/04/2019 7:36 AM EST senior technical support analyst here in preop to draw confirmation lab tube for surgery. documented in this [facility] Work Phone: [phone]) 809-354201-11-2020 Hospital course Narrative* Hernandez Tovar MD - [...] osteoarthritis of the hips. documented in this [email or web address] Phone: 1(635) [phone] Hospital Discharge instructions* Discharge Instr - HODAN* [...] FUSION L5-S1 PLIF performed by Fanny Barone [facility] [place]ER SURGERY SPINE SURGERY Immunization History: [...] MENTAL STATUS:} IV Access: { HODAN IV ACCESS:338977060} Nursing Mobility/ADLs: Walking {CHP DME ADLs:620658918} Transfer {CHP DME ADLs:844505358} Bathing {CHP DME ADLs:495291489} Dressing {CHP DME ADLs:251845458} Toileting {CHP DME ADLs:312435380} Feeding {CHP DME ADLs:747829920} Calculating Machine Operator {P DME ADLs:903389760} Med Delivery { HODAN MED Delivery:687607786} Wound Care Documentation and Therapy: Elimination: Continence: Bowel: {YES / NO:} Bladder: {YES / NO:} Urinary Catheter: {Urinary Catheter:032702386} Colostomy/Ileostomy/Ileal Conduit: {YES / NO:} Date of Last BM: Intake/Output Summary (Last 24 hours) at 06/06/2019 09 Last data filed at 06/06/2019 0902 Gross per 24 hour Intake 2280 ml Output 695 ml Net 1585 ml I/O last 3 completed shifts: In: 3520 [P.O.:1520; I.V.:1999] Out: 1325 [Urine:900; Drains:425] Safety Concerns: { HODAN Safety Concerns:563601812} Impairments/Disabilities: { HODAN Impairments/Disabilities:214728195} Nutrition Therapy: Current Nutrition Therapy: { HODAN Diet List:804250504} Routes of Feeding: {CHP DME Other Feedings:006774286} Liquids: {Insert Molding Operator liquid thickness:56563} Daily Fluid Restriction: {CHP DME Yes amt example:705787263} Last Modified Barium Swallow with Video (Video Swallowing Test): {Done Not Done Date:} Treatments at the Time of Hospital Discharge: Respiratory Treatments: Oxygen Therapy: {Therapy; copd oxygen:21511} Ventilator: {[facility] Vent List:120859169} Rehab Therapies: {THERAPEUTIC INTERVENTION:5571658690} Weight Bearing Status/Restrictions: { CC Weight Bearin} Other Medical Equipment (for information only, NOT a DME order): {EQUIPMENT:749594161} Other Treatments: Patient's personal belongings (please select all that are sent with patient): {[facility] DME Belongings:088020039} RN SIGNATURE: {Esignature:816527256} CASE MANAGEMENT/SOCIAL WORK SECTION Inpatient Status Date: Readmission Risk Assessment Score: Readmission Risk Risk of Unplanned Readmission: 12 Discharging to Facility/ Agency Name: Address: Phone: Fax: Dialysis Facility (if applicable) Name: Address: Dialysis Schedule: Phone: Fax: Rating Officer/Guard Lieutenant signature: {Esignature:757426641} PHYSICIAN SECTION Prognosis: {Prognosis:6298475787} Condition at Discharge: { Patient Condition:634631996} Rehab Potential (if transferring to Rehab): {Prognosis:7363158966} Recommended Labs or Other Treatments After Discharge: Physician Certification: I certify the above information and transfer of Deondre Lr is necessaryfor the continuing treatment of the diagnosis listed and that he requires {Admit to Appropriate Level of Care:88685} for {GREATER/LESS:869181341} 30 days. Update Admission H&P: {[facility] DME Changes in HandP:739993495} PHYSICIAN SIGNATURE: * Additional Instructions* Hellen Lopez [...] your physician 11) Call your doctor at [phone] for an appointment (or follow up as [...] call OFFICE. The 24- hour phone is [phone] 13) If you are unable to contact your surgeon, in an emergency situation, go to the nearest hospital emergency room. 14) shower on Saturday 15) no driving [facility] WILL FOLLOW FOR PT/OT . THEIR PHONE NUMBER IS [phone] documented in this [email or web address] Phone: 1(247) 627-652501-09-2020 NoteFLUORO FOR SURGICAL PROCEDURES : 06/04/2019 6:30 AM CLINICAL HISTORY: Lumbar Fusion . COMPARISON: None available. Intraoperative fluoroscopy was provided for Dr. Guy melendez. A total of 49.8 seconds of fluoroscopy was used, with 6 fluoroscopic stills saved. No diagnostic images were obtained. Please see Dr. Tovar surgical notes for completeness.[facility] Phone: [phone]) 605-178701-09-2020 Geetha Cooper Incoming Radiant Results From [employer] - 06/04/2019 10:53 AM EST FLUORO FOR SURGICAL PROCEDURES : 06/04/2019 6:30 AM CLINICAL HISTORY: Lumbar Fusion . COMPARISON: None available. Intraoperative fluoroscopy was provided for Dr. Guy melendez. A total of 49.8 seconds of fluoroscopy was used, with 6 fluoroscopic stills saved. No diagnostic images were obtained. Please see Dr. Tovar surgical notes for completeness. 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 documented in this encounter [facility] Phone: evalfynktn note* Diagnosis Pain Generalized pain documented in this encounter [facility] Phone: evalobrwti note* Diagnosis Post-op pain- Primary Other acute postoperative pain Lumbar degenerative disc disease Degeneration of lumbar or lumbosacral intervertebral disc documented in this encounter [facility] Phone: evalgqiavv note* Diagnosis Left rotator cuff tear arthropathy- Primary Post-op pain Other acute postoperative pain Atrial fibrillation (HCC) Atrial fibrillation Essential hypertension Unspecified essential hypertension Type 2 diabetes mellitus without complication (HCC) S/P reverse total shoulder arthroplasty, left documented in this encounter [facility] Phone: evalnkmymx note* Diagnosis Closed fracture of shaft of left humerus, unspecified fracture morphology, initial encounter- Primary documented in this encounter ALEYDA ERICKSON [employer] Phone: evaluation noteNo assessment information available [facility] Work Phone: Evaluation noteNo InformationNortHorsham Clinic [employer] Other History general Narrative - Reported* Type [...] COMPRESSION 2019 Hospitalization History SEE SURGICAL HX [facility] [employer] Other Reason for visit Narrative* Auth/Cert Specialty Diagnoses / Procedures Referred By Florecita lopez Referred To Contact Diagnoses S/P rotator cuff repair ROTATOR CUFF REPAIR Procedures W[place] RECONSTR TOTAL SHOULDER IMPLANT SHOULDER TOTAL ARTHROPLASTY REVERSE Zenia Molina MD [address] [place] [id number] [employer] [phone] [place] [address] Referral ID Status Reason Start Date Expiration Date Visits Re quested Visits Authorized 1 1 [facility] Phone: reason for visit Narrative* Auth/Cert Specialty Diagnoses / Procedures Referred By [facility] lopez Referred To Contact Diagnoses Rotator cuff arthropathy of both shoulders ROTATOR CUFF ARTHROPATHY, LEFT SHOULDER Procedures [place] RECONSTR TOTAL SHOULDER IMPLANT SHOULDER TOTAL ARTHROPLASTY REVERSE Zenia Molina MD [address] [place] [address] [employer] [phone] [place] [address] Referral ID Status Reason Start Date Expiration Date Visits Re quested Visits Authorized 1 1 [facility] Phone: Summary Purpose Family History No Family History Records FoundNo Family History Records FoundNo Family History Records FoundNo Family History Records FoundNo Family History Records FoundNo Family History Records FoundNo Family History Records Found Advance Directives No Advanced Directives Records FoundDocuments on File Type Date Recorded Patient Roof Bolter Expl anation ACP-Advance Directive ACP-Power of Manager Change Latest Code Status on File Code Status Date Activated Date Inactivated Comments Full Code 06/04/2019 3:37 PM 06/08/2019 4:48 PM Documents on File Type Date Recorded Patient Roof Bolter Expl anation ACP-Advance Directive ACP-Power of Manager Change Latest Code Status on File Code Status [...] Documents on File Type Date Recorded Patient Roof Bolter Expl anation Advance Directives and Living Will Power of Manager Change Latest Code Status on File Code Status [...] Fluoro For Surgical Procedures Hernandez Tovar MD [address] [place] [address] Status Reason Specialty Diagnoses / Procedures Referred By Contact Referred To Contact [facility] Specialty Services Required Home Health Services Diagnoses Lumbar degenerative disc disease Hernandez Tovar MD [address] [facility], [address] [place] [address] Reason *FU 02/12 [facility] - balance issues, falls. Normal CT in ER May - labs earlier this summer. thanks Diagnosis 1 Balance disorder (R2 6.89) Referral Organization [facility] Referring Provider First Name Mike Referring Provider Last Name Kwabena Referring Provider Specialty Family [facility] cine Referred Organization [facility] Referred Provider Reilly Howard Referred Address [address],[place], [place],[address] Referred Provider Specialty Neurology Referral Priority Routine General Notes Madisonrey Elaine 11:54:53 AM >received today, attachments made, notes locked, referral faxed Chief Complaint and Reason for Visit Chief Complaint unsteady gait Additional Source Comments (unrecognized sect ion and content) No Status Records FoundNo Status Records FoundNo Status Records FoundNo Status Records FoundNo Status Records FoundNo Status Records FoundNo Status Records Found INFORMATION SOURCE (unrecogn ized section and content) DATE CREATED AUTHOR 11/27/2020 [facility] DATE CREATED AUTHOR AUTHOR'S ORGANIZ ATION 12/09/2020 [facility] DATE CREATED AUTHOR AUTHOR'S ORGANIZ ATION 12/13/2021 [facility] DATE CREATED AUTHOR AUTHOR'S ORGANIZ ATION 11/02/2022 [facility] DATE CREATED AUTHOR AUTHOR'S ORGANIZ ATION 12/24/2022 [facility] DATE CREATED AUTHOR AUTHOR'S ORGANIZ ATION 06/18/2023 [facility] DATE CREATED AUTHOR AUTHOR'S ORGANIZ ATION 07/30/2023 [facility] Reason for Visit (unrecogniz ed section and content) Status Reason Specialty Diagnoses / Procedures Referre d By Contact Referred To Contact Diagnoses RADICULOPATHY; PSEUDOARTHROSIS; SPONDYLOSIS; FACET ARTHROPATHY Procedures [place] LUMBAR SPINE FUSN,POST INTRBDY L 4-5 PLIF (POSTERIOR LUMBAR INTERBODY FUSION) INFUSE 2 HOURS/ 1 C-ARM/ MAX TABLE/ SSEP/ CELL SAVERS/ NUVASIVE (PAT [facility]) DR. TOVAR TO START AT 9:00 AM Hernandez Tovar MD [id number] [place] [id number] [employer] Status Reason Specialty Diagnoses / Procedures Referre d By Contact Referred To Contact Diagnoses Spondylosis SPONDYLOSIS, STENOSIS, FACET ARTHROPATHY, RADICULOPATHY Procedures [place] LUMBAR SPINE FUSN,POST INTRBDY L 4-5 DECOMPRESSION, L5-S1 PLIF (POSTERIOR LUMBAR INTERBODY FUSION), 2 HOURS/ 1 C-ARM/ NUVASIVE/ SSEP/ CELL SAVERS/ MAX TABLE, OUTSIDE PAT AT [place] Hernandez Tovar MD [id number], [address] [place] [address] [employer] Reason Comments Fall fell off bed this [...] DAILY, First dose on Sat12/06/20 at 1530 203 (Not Given - Provider: Sasha Garcia RN - Reason: Other - Comment: given today) 0742 (Given - Provider: Adelaide Villela RN) 0838 (Given - Provider: Adelaide Villela, RAEANN) ceFAZolin (ANCEF) 2000 mg in dextrose 5 [...] RAEANN) 0533 (Given - Provider: Blanca Reyes, RN)1457 (Given - Provider: Adelaide Villela, RAEANN)2200 (Due) docusate sodium (COLACE) capsule 100 mg 100 mg, Oral, 2 TIMES DAILY, First dose on Sat12/06/20 at 2100 2040 (Given - Provider: Sasha Garcia RN) 0743 (Given - Provider: Adelaide Villela RN)2124 (Given - Provider: Blanca Reyes, RAEANN) 0839 (Given - Provider: Adelaide Villela, RAEANN)2100 (Due) DULoxetine (CYMBALTA) extended release capsule 60 [...] Villela RN) 0806 (Held - Provider: Adelaide iVllela RN - Reason: Other - Comment: BP [...] 2221 (Given - Provider: Sasha Garcia RN) 2126 (Given - Provider: Blanca Reyes, RN) 2099 (Due) insulin lispro (HUMALOG) injection vial 0-12 [...] Villela, RAEANN)1215 (Given - Provider: Adelaide Villela, RAEANN)1733 (Given [...] RN) 2130 (Given - Provider: Blanca Reyes, RAEANN) 2099 (Due) lisinopril (PRINIVIL;ZESTRIL) tablet 10 mg [...] Garcia RN) 2123 (Given - Provider: Blanca Reyes RN) 2099 (Due) metoprolol succinate (TOPROL XL) extended release tablet 50 mg (COMPLETED) 50 mg, Oral, ENTHONE SOLDER STRIPPER TO O.R., On Sat12/06/20 at 0800, For [...] DAILY, First dose on Sat12/06/20 at 2100 204 (Given - Provider: Sasha Garcia RN) 0743 [...] DAILY, First dose on Sat12/06/20 at 2100 221 (Given - Provider: Sasha Garcia RN - [...] RN) 0255 (New Bag - Provider: Sasha Garcia, RAEANN) lactated ringers infusion (CANCELED) Intravenous, at 100 mL/hr, CONTINUOUS, Starting on Sat12/06/20 at 0800, Pre-op (day of surgery) 0750 (New Bag - Provider: Deborah Ray, RAEANN) PRN Medication Order 12/06/2020 12/07/2020 12/08/2020 0.9 [...] Tompkins RN) 0602 (Given - Provider: Sasha Garcia, RAEANN)1331 (Given - Provider: Adelaide Villela, RAEANN)2124 (Given - Provider: Blanca Reyes, RAEANN) 0533 (Given - Provider: Blanca Reyes, RAEANN) dextrose 5 % solution 100 mL/hr, [...] 0814 0838 (Given - Provider: Adelaide Villela, RN)1457 (Given - Provider: Adelaide Villela, RN) fentaNYL (SUBLIMAZE) injection 50 mcg (CANCELED) 50 mcg, Intravenous, EVERY 10 MIN PRN, Pain Moderate (4-6), Starting on Sat12/06/20 at 0800, For 4 doses, Phase I - Initial therapy for moderate pain., PACU only 1424 (Given - Provider: Maribell Heath, RAEANN)1436 (Given - Provider: Maribell Heath RN) gelatin [...] Brielle Tompkins RN)2038 (Given - Provider: Sasha Garcia, RAEANN) 0340 (Given - Provider: Sasha Garcia RN)0923 (Given - Provider: Adelaide Villela, RAEANN)1331 (Given - Provider: Adelaide Villela, RAEANN)1733 (Given - Provider: Adelaide Villela, RN)2124 (Given - Provider: Blanca Reyes, RAEANN) 0348 (Given - Provider: Blanca Ryees, RAEANN)0839 (Given - Provider: Adelaide Villela, RAEANN)1243 [...] Adelaide Villela, RAEANN)1552 (Given - Provider: Adelaide Villela, RAEANN)1945 (Given [...] dose on Sat09/05/21 at 2100, Until Discontinued 211 (Given - Provider: Colin Younger RN) 0810 [...] dose on Sat09/05/21 at 1500, Until Discontinued 140 (Given - Provider: Luz Marina Kerr RN) 08 (Given - Provider: Claudia Dasilva RN) gabapentin [...] Younger RN - Reason: IV Fluid Infusing) 075 (Not Given - Provider: Claudia Dasilva RN [...] CRNA)1127 (New Bag - Provider: Pamella Singh, RAEANN)1230 (Stopped - Provider: Claudia Dasilva RN) PRN [...] only 1135 (Given - Provider: Pamella Singh, RAEANN)1140 (Given - Provider: Pamella Singh, RAEANN) gentamicin (GARAMYCIN) injection (CANCELED) PRN, Starting on [...] RN)1943 (Given - Provider: Colin Younger RN) 0135 (Given - Provider: Colin Younger RN) ondansetron [...] Care Teams (unrecognized sec tion and content) Solar Project Engineer Relationship Specialty Start Date End Date Mike Yuan MD PCP - General Family Medicine 12/25/18 Solar Project Engineer Relationship Specialty Start Date End Date Mike Yuan MD PCP - General Family Medicine 12/25/18 Solar Project Engineer Relationship Specialty Start Date End Date Mike Yuan MD PCP - General Family Medicine 12/25/18 Solar Project Engineer Relationship Specialty Start Date End Date Mike Yuan MD PCP - General Family Medicine 12/25/18 Team Status: Active Member Role Status Dates Berta Hernandez APRN NETWORK INFRASTRUCTURE ARCHITECT-C Primary Care Provider Ed wong Team Status: Inactive Member Role Status Dates Berta Hernandez APRN NETWORK INFRASTRUCTURE ARCHITECT-C Primary Care Provider, Attmarvin boggsing Provider Active [...] BE BASED ON THE PRIMARY CLINICAL RECORDS. [facility] [employer] [facility]. provides no warranty or guarantee of the accuracy or completeness of information in this document.
[2023-10-19] MEDS: FLECAINIDE ACETATE 50 MG TABLET 100 MG PO (18:07)
[2023-10-19] MEDS: GABAPENTIN 300 MG CAPSULE PO (18:07)
[2023-10-19] MEDS: HYDROCODONE/ACET 5-325 MG TABLET 1 TAB PO (18:07)
[2023-10-19] MEDS: FERROUS SULFATE 325 MG TABLET PO (20:49)
[2023-10-19] MEDS: KETOROLAC TROMETHAMINE 30 MG/ML VIAL IVP (20:49)
[2023-10-20] VITALS (19 sets, daily range): BP systolic 96–117; BP diastolic 60–76; PULSE 70–105; TEMP 36.3–36.8; O2SAT 87–97
[2023-10-20] MEDS: ENOXAPARIN SODIUM 80 MG/0.8 ML SYRINGE SUBQ (00:06)
[2023-10-20] MEDS: DOXYCYCLINE MONOHYDRATE 100 MG CAPSULE PO ×3 (00:07→21:23)
[2023-10-20] MEDS: GABAPENTIN 300 MG CAPSULE PO ×2 (02:22→09:13)
[2023-10-20] MEDS: 0.9 % SODIUM CHLORIDE 500 ML IV (02:22)
[2023-10-20 04:41] LABS: Basophils Absolute Auto 0.1 10^3/uL (0.0-0.1); Basophils Percent Auto 0.4 % (0.2-2.0); Eosinophils Absolute Auto 0.1 10^3/uL (0.0-0.7); Eosinophils Percent Auto 0.8 % (0.9-7.0); Hematocrit 31.4 % (42.0-54.0); Hemoglobin 9.9 g/dL (14.0-18.0); Immature Granulocytes Abs Auto 0.04 10^3/uL (0.00-0.03); Immature Granulocytes Pct Auto 0.3 % (0.0-0.5); Lymphocytes Absolute Auto 1.6 10^3/uL (1.2-3.8); Lymphocytes Percent Auto 13.8 % (20.5-60.0); Mean Corpuscular HGB Conc 31.5 g/dL (29.9-35.2); Mean Corpuscular Hemoglobin 30.5 pg (25.9-34.0); Mean Corpuscular Volume 96.6 fL (80.0-94.0); Mean Platelet Volume 10.3 fL (9.5-13.5); Monocytes Absolute Auto 1.3 10^3/uL (0.3-0.8); Monocytes Percent Auto 11.1 % (1.7-12.0); Neutrophils Absolute Auto 8.8 10^3/uL (1.4-6.5); Neutrophils Percent Auto 73.6 % (43.0-75.0); Platelet Count 155 10^3/uL (150-450); Red Blood Count 3.25 10^6/uL (4.70-6.10); Red Cell Distribution Width 12.3 % (11.0-15.0); White Blood Count 11.9 10^3/uL (4.0-11.0)
[2023-10-20 04:59] LABS: Alanine Aminotransferase 17 U/L (16-63); Albumin Globulin Ratio 0.7; Albumin Level 2.9 g/dL (3.4-5.0); Alkaline Phosphatase 98 U/L (46-116); Anion Gap 15.7; Aspartate Amino Transferase 14 U/L (15-37); BUN Creatinine Ratio 16.2; Bilirubin Total 0.3 mg/dL (0.2-1.0); Carbon Dioxide 22.2 mmol/L (21.0-32.0); Chloride 106 mmol/L (98-107); Estimated GFR (African America >60 (>=60); Estimated GFR (Non-African Ame >60 (>=60); Globulin 4.1 g/dL; Glucose 127 mg/dL (74-106); Potassium 3.9 mmol/L (3.5-5.1); Sodium 140 mmol/L (136-145)
[2023-10-20] MEDS: HYDROCODONE/ACET 5-325 MG TABLET 1 TAB PO ×3 (05:53→18:23)
[2023-10-20] MEDS: FLECAINIDE ACETATE 50 MG TABLET 100 MG PO (05:54)
--- NOTE | 2023-10-20 07:51 | P.HP_ITS ---
HPI H&P: HPI History of Present Illness Chief complaint: UTI/EPIDIDYMITIS/DVT Narrative: Patient is a 68 year old white male with past medical history of noninsulin dependent type 2 diabetes, chronic lumbar back pain (previously followed with pain management), GERD, HLD, Afib, and who presented to the ER last evening with increased pain and swelling of the right testicle. Patient reports that about a week ago he had left testicular swelling which resolved on it's own, This swelling started about 2 days ago. He has also felt weak. Denies fevers or chills, n/v/ or diarrhea. [facility] for missing too many appointments. He follows with Dr. Flynn for his PCP. He also had a consumer loan specialist at [facility] that he sees for his Afib history. He denies any blood clot history, denies any lung issues. 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 He has had previous back surgeries was taking opioids for pain control. This morning he notes pain in his right groin, radiating into his right testicle, along with pain/swelling of the right testicle. He is and denies any chance for STI's. He does note that he takes a pill for diabetes. Denies any urinary issues with urgency, frequency or burning. Denies any testi cular trauma. ER findings showed UA positive for UTI, WBC's elevation of 12, Urine culture sent. Patient had CT of abd/pelvis that showed enlarged prostate gland, sigmoid diverticula, possible dilation of the right femoral vein, right seminal vesiculitis, and small bilateral inguinal hernias, posterior fusion L3-S1 with prior kyphoplasty. CXR negative, Scrotal ultrasound showed right acute epid idymitis and moderate hydrocele. Venous Doppler study of the right lower extremity was negative for DVT. Opioid HPI Opioid Management Most Recent Opioid Data: Last Pain Scale 9 10/20/23 09:00 Last Pain Assessment 10/20/23 09:00 Last ED Pain Assessment 10/19/23 13:10 Last MAR Pain Assessment 10/20/23 05:53 Last ORT Total Score 0 10/19/23 17:52 Last ORT Risk Category Low Risk 10/19/23 17:52 Review of Systems ROS Narrative ROS: a complete review of systems were reviewed with patient and are positive as below or listed in History of Chief Complaint. General: no fever, chills, night sweats Head: no headache, trauma, visual changes, nausea or vomiting Skin: no reported rashes, itching or sores Eyes: no blurriness of vision Ears: no reported hearing loss, vertigo, earache, or tinnitus Throat: no sore throat, hoarseness, swelling of neck, or tongue pain Heart: no chest pain Lungs: no shortness of breath or cough GI: no diarrhea or vomiting/nausea Urinary: no urinary urgency, frequency but right testicular pain and swelling Neuro: no numbness or tingling HEM: no bleeding issues or bruising ENDO: no thyroid problems Psych: no anxiety or depression PFSH PFS Medical History (Updated 10/20/23 @ 10:05 by Patricia Loya DO) Rheumatoid arthritis ?M06.9 - Rheumatoid arthritis, unspecified (ICD-10) Non-insulin dependent type 2 diabetes mellitus ?E11.9 - Type 2 diabetes mellitus without complications (ICD-10) Afib ?I48.91 - Unspecified atrial fibrillation (ICD-10) Hypertension ?I10 - Essential (primary) hypertension (ICD-10) Combined hyperlipidemia ?E78.2 - Mixed hyperlipidemia (ICD-10) Encounter for monitoring opioid maintenance therapy ?Z51.81 - Encounter for therapeutic drug level monitoring (ICD-10) ?Z79.891 - halfway (current) use of opiate analgesic (ICD-10) Chronic, continuous use of opioids ?F11.90 - Opioid use, unspecified, uncomplicated (ICD-10) Osteoarthritis ?M19.90 - Unspecified osteoarthritis, unspecified site (ICD-10) Lumbar radiculopathy ?M54.16 - Radiculopathy, lumbar region (ICD-10) Lumbar spondylosis ?M47.816 - Spondylosis without myelopathy or radiculopathy, lumbar region (ICD-10) Surgical History (Updated 10/20/23 @ 10:04 by Patricia Loya DO) History of lumbar fusion ?Z98.1 - Arthrodesis status (ICD-10) H/O left nephrectomy ?Z90.5 - Acquired absence of kidney (ICD-10) Social History Highest level of school completed/degree received: 10th grade Meds Home Medications and Allergies Home Medications ?Medication ?Instructions ?Recorded ?Confirmed ?Type adalimumab 40 mg/0.4 mL 40 mg subcut QWEEK 11/02/22 10/19/23 History subcutaneous syringe kit ([facility]()) amitriptyline 25 mg tablet 25 mg PO DAILY 11/02/22 10/19/23 History ascorbic acid (vitamin C) 500 mg 500 mg PO DAILY 11/02/22 10/19/23 History tablet baclofen 10 mg tablet 10 mg PO DAILY 11/02/22 10/19/23 History diclofenac sodium 75 mg 75 mg PO BID 11/02/22 10/19/23 History tablet,delayed release duloxetine 60 mg capsule,delayed 60 mg PO DAILY 11/02/22 10/19/23 History release ferrous sulfate 325 mg (65 mg 325 mg PO BID 11/02/22 10/19/23 History iron) tablet,delayed release flecainide 100 mg tablet 100 mg PO Q12H 11/02/22 10/19/23 History furosemide 40 mg tablet 40 mg PO DAILY 11/02/22 10/19/23 History lisinopril 10 mg tablet 10 mg PO DAILY 11/02/22 10/19/23 History melatonin 5 mg capsule 5 mg PO .QHS 11/02/22 10/20/23 History metoprolol tartrate 50 mg tablet 50 mg PO DAILY 11/02/22 10/20/23 History multivitamin (Multiple Vitamins 1 tab PO DAILY 11/02/22 10/19/23 History tablet) omeprazole 40 mg capsule,delayed 40 mg PO DAILY 11/02/22 10/19/23 History release pregabalin 100 mg capsule (Lyrica) 100 mg PO BID 11/02/22 10/20/23 History simvastatin 40 mg tablet 40 mg PO DAILY 11/02/22 10/19/23 History sulfasalazine 500 mg tablet 1 g PO DAILY 11/02/22 10/20/23 History thiamine HCl (vitamin B1) 100 mg 100 mg PO DAILY 11/02/22 10/19/23 History tablet hydrocodone 5 mg-acetaminophen 325 1 tab PO BID PRN pain #60 tabs 03/07/23 10/19/23 Rx mg tablet alendronate 70 mg tablet 70 mg PO QWEEK 06/13/23 10/19/23 History atorvastatin 20 mg tablet 20 mg PO QPM 06/13/23 10/20/23 History folic acid 1 mg tablet 1 mg PO DAILY 06/13/23 10/19/23 History gabapentin 300 mg capsule 300 mg PO Q8H 06/13/23 10/19/23 History lidocaine 5 % topical patch 1 patch topical DAILY 06/13/23 10/19/23 History mirtazapine 15 mg tablet 15 mg PO QPM 06/13/23 10/20/23 History prazosin 1 mg capsule 3 mg PO DAILY 06/13/23 10/19/23 History Allergies Allergy/AdvReac Type Severity Reaction Status Date / Time No Known Drug Allergies Allergy Verified 06/03/23 10:24 Exam Narrative Exam Narrative: General: Patient is alert, and oriented to person, place and time with normal affect, proper hygiene Skin: no visible rashes, or ulcers Head: atraumatic, acephalic Eyes: PERRLA, no nystagmus present, conjunctiva clear, no scleral icterus Ears: normal gross auditory acuity Nose: symmetric, no discharge, no maxillary or frontal sinus tenderness Heart: Normal rate and rhythm, no murmurs/rubs/gallops Lungs: no audible wheezes, crackles and normal breath sounds all lung [place] Abdomen: Normal audible bowel sounds, no distension, no rebound/guarding/ or rigidity Musculoskeletal: no swelling bilateral lower extremities : erythema of the right inguinal fold, erythema, tenderness/pain with palpation of the right testicle, right testicle is swollen, firm and is about double the size of the left testicle. I cannot appreciate any inguinal hernia with palpation of the right inguinal canal. Neuro: CN II-X grossly intact Constitutional Vital Signs, click to edit/add: Last Vital Signs Temp 98.2 F 10/20/23 00:15 Pulse 81 10/20/23 07:41 Resp 18 10/20/23 00:15 BP 96/60 10/20/23 00:15 Pulse Ox 94 L 10/19/23 19:41 O2 Del Method Room Air 10/19/23 19:41 Results Labs Labs: Short CBC 10/19/23 10/20/23 Range/Units 13:15 04:25 WBC 12.0 H 11.9 H (4.0-11.0) 10^3/uL Hgb 11.1 L 9.9 L (14.0-18.0) g/dL Hct 34.5 L 31.4 L (42.0-54.0) % Plt Count 200 155 (150-450) 10^3/uL BMP 10/19/23 10/20/23 13:15 04:25 Sodium 137 140 Potassium 4.7 3.9 Chloride 102 106 Carbon Dioxide 24.0 22.2 BUN 17.0 19.0 H Creatinine 1.22 1.17 Glucose 151 H 127 H Calcium 8.7 8.0 L Liver Function 10/19/23 10/20/23 Range/Units 13:15 04:25 Total Bilirubin 0.4 0.3 (0.2-1.0) mg/dL AST 18 14 L (15-37) U/L ALT 24 17 (16-63) U/L Alkaline Phosphatase 120 H 98 (46-116) U/L Albumin 3.8 2.9 L (3.4-5.0) g/dL Urine 10/19/23 Range/Units 16:04 Urine Color Lt. yellow (YELLOW) Urine Clarity Clear (CLEAR) Urine pH 6.0 (5.0-9.0) Ur Specific [place] 1.020 (1.005-1.025) Urine Protein Trace (NEG/TRACE) mg/dL Urine Glucose (UA) Negative (NEGATIVE) mg/dL Assessment and Plan Assessment and Plan (1) Acute UTI: Assessment and Plan: patient with elevated WBC's of 12, placed on Rocephin, UA positive for infection, urine culture pending. (2) Epididymitis: Assessment and Plan: as seen on exam, CT and U/S: placed on doxycycline, recommended scrotal elevation. (3) Seminal vesiculitis: Assessment and Plan: check for Chlamydia/GC, placed on doxy, Urology consultation to see if they have any additional recommendations. (4) Combined hyperlipidemia: Assessment and Plan: continue lipitor (5) Hypertension: Assessment and Plan: held metoprolol today for hypotension. Qualifiers: Hypertension type: primary hypertension Qualified Code(s): I10 - Essential (primary) hypertension (6) Afib: Assessment and Plan: takes aspirin daily, patient reports ablation in the past, recheck Echo by [facility] cards on the chart. continue flecainide, aspirin, lisinopril, lasix Qualifiers: Atrial fibrillation type: unspecified chronic Qualified Code(s): I48.20 - Chronic atrial fibrillation, unspecified (7) Non-insulin dependent type 2 diabetes mellitus: Assessment and Plan: recheck ha1c today. no record of medication for this. (8) Rheumatoid arthritis: Assessment and Plan: takes humira, and sulfasalazine for RA. Qualifiers: Rheumatoid arthritis location: multiple sites Rheumatoid factor presence: unspecified presence Qualified Code(s): M06.9 - Rheumatoid arthritis, unspecified (9) Lumbar spondylosis: Assessment and Plan: takes lyrica and neurotin, was taking [place], recent [facility], [facility] Also takes Cymbalta and amitriptyline. Plan patient is a full code patient is inpatient status and is expected to cross 2 midnights for necessary medical care Lovenox for DVT prophylaxis, Therapeutic Lovenox started but since DVT ruled out was stopped. Urology consult today for any additional recommendations.
[2023-10-20] MEDS: CEFTRIAXONE 1,000 MG in 0.9 % SODIUM CHLORIDE 50 ML 100 MG IV (09:10)
[2023-10-20] MEDS: OMEPRAZOLE 40 MG CAPSULE.DR PO (09:10)
[2023-10-20] MEDS: 0.9 % SODIUM CHLORIDE 250 ML 10 ML IV (09:10)
[2023-10-20] MEDS: MIRTAZAPINE 15 MG TABLET PO (09:11)
[2023-10-20] MEDS: ENOXAPARIN SODIUM 40 MG/0.4 ML SYRINGE SUBQ (09:11)
[2023-10-20] MEDS: THIAMINE MONONITRATE (VIT B1) 100 MG TABLET PO (09:11)
[2023-10-20] MEDS: DULOXETINE HCL 60 MG CAPSULE.DR PO (09:11)
[2023-10-20] MEDS: AMITRIPTYLINE HCL 25 MG TABLET PO ×2 (09:11→21:24)
[2023-10-20] MEDS: BACLOFEN 10 MG TABLET PO (09:11)
[2023-10-20] MEDS: LISINOPRIL 10 MG TABLET PO (09:11)
[2023-10-20] MEDS: FOLIC ACID 1 MG TABLET PO (09:11)
[2023-10-20] MEDS: LIDOCAINE 5% PATCH 1 PATCH TOPICAL (09:11)
[2023-10-20] MEDS: ATORVASTATIN CALCIUM 20 MG TABLET PO ×2 (09:11→21:25)
[2023-10-20] MEDS: FERROUS SULFATE 325 MG TABLET PO (09:11)
[2023-10-20] MEDS: ASCORBIC ACID 500 MG TABLET PO (09:11)
[2023-10-20] MEDS: FUROSEMIDE 40 MG TABLET PO (09:11)
[2023-10-20 10:06] LABS: Estimated Average Glucose 123 mg/dL; Glycohemoglobin A1C 5.9 % (4.5-6.2)
[2023-10-20] MEDS: KETOROLAC TROMETHAMINE 30 MG/ML VIAL IVP (10:11)
[2023-10-20] MEDS: GENTAMICIN SULFATE 120 MG in 0.9 % SODIUM CHLORIDE 100 ML 206 MG IV ×2 (12:20→21:23)
--- NOTE | 2023-10-20 18:32 | PC.NURSE ---
patients PVR now 256ml, rn informed him that he will require a urbina catheter, patient states he does not tolerate urbina catheters well. Dr. Flanagan here now
--- NOTE | 2023-10-20 18:50 | P.CN_ITS ---
Consult Note: HPI Data of Consult Patient: new to practice Consult date: 10/20/23 Requesting Physician: Patricia Loya DO Primary Care Provider: Niru Flynn MD Consult Narrative Reason for consult: Epididymitis Narrative: This gentleman began experiencing right testicular pain about 4 to 5 days ago. He did not have any urination changes such as dysuria and penile discharge. He also denies fevers at home but he had shaking chills prior to admission. Of note is that just a few weeks prior, he had contralateral side testicular pain that came and went. Upon admission to the hospital he had a white count of 12,000. He was started on Rocephin. He just gave a urine sample so we do not have a UA or culture as of yet. His postvoid residuals were greater than 150 cc twice but the patient refuses [place] catheter placement. Upon questioning him further he states that his stream is decent and he feels like he empties. He denies any prior urinary tract infections. He does take an alpha 1 ayana for blood pressure i.e. prazosin and this helps with his urination somewhat. cc:: CC: Patricia Loya DO Review of Systems ROS Status of ROS 10 or more systems reviewed and unremark able except as noted in history and below [facility] Medical History (Updated 10/20/23 @ 18:57 by Chet Flanagan MD) Rheumatoid arthritis ?M06.9 - Rheumatoid arthritis, unspecified (ICD-10) Non-insulin dependent type 2 diabetes mellitus ?E11.9 - Type 2 diabetes mellitus without complications (ICD-10) Afib ?I48.91 - Unspecified atrial fibrillation (ICD-10) Hypertension ?I10 - Essential (primary) hypertension (ICD-10) Combined hyperlipidemia ?E78.2 - Mixed hyperlipidemia (ICD-10) Encounter for monitoring opioid maintenance therapy ?Z51.81 - Encounter for therapeutic drug level monitoring (ICD-10) ?Z79.891 - longterm (current) use of opiate analgesic (ICD-10) Chronic, continuous use of opioids ?F11.90 - Opioid use, unspecified, uncomplicated (ICD-10) Osteoarthritis ?M19.90 - Unspecified osteoarthritis, unspecified site (ICD-10) Lumbar radiculopathy ?M54.16 - Radiculopathy, lumbar region (ICD-10) Lumbar spondylosis ?M47.816 - Spondylosis without myelopathy or radiculopathy, lumbar region (ICD-10) Surgical History History of lumbar fusion ?Z98.1 - Arthrodesis status (ICD-10) H/O left nephrectomy ?Z90.5 - Acquired absence of kidney (ICD-10) Social History Highest level of school completed/degree received: 10th grade Meds Home Medications and Allergies Home Medications ?Medication ?Instructions ?Recorded ?Confirmed ?Type adalimumab 40 mg/0.4 mL 40 mg subcut QWEEK 11/02/22 10/19/23 History subcutaneous syringe kit ([facility])) amitriptyline 25 mg tablet 25 mg PO BEDTIME 11/02/22 10/20/23 History duloxetine 60 mg capsule,delayed 60 mg PO DAILY 11/02/22 10/19/23 History release furosemide 40 mg tablet 40 mg PO DAILY 11/02/22 10/19/23 History lisinopril 10 mg tablet 10 mg PO DAILY 11/02/22 10/19/23 History metoprolol tartrate 50 mg tablet 50 mg PO BID 11/02/22 10/20/23 History multivitamin (Multiple Vitamins 1 tab PO DAILY 11/02/22 10/19/23 History tablet) omeprazole 40 mg capsule,delayed 40 mg PO DAILY 11/02/22 10/19/23 History release hydrocodone 5 mg-acetaminophen 325 1 tab PO BID PRN pain #60 tabs 03/07/23 10/19/23 Rx mg tablet alendronate 70 mg tablet 70 mg PO QWEEK 06/13/23 10/19/23 History atorvastatin 20 mg tablet 20 mg PO BEDTIME 06/13/23 10/20/23 History folic acid 1 mg tablet 1 mg PO DAILY 06/13/23 10/19/23 History gabapentin 300 mg capsule 300 mg PO Q8H 06/13/23 10/19/23 History lidocaine 5 % topical patch 1 patch topical DAILY 06/13/23 10/19/23 History mirtazapine 15 mg tablet 15 mg PO QPM PRN sleep 06/13/23 10/20/23 History prazosin 1 mg capsule 4 mg PO BEDTIME 06/13/23 10/20/23 History calcium citrate 200 mg (950 mg) 200 mg PO BID 10/20/23 10/20/23 History tablet doxycycline hyclate 100 mg capsule 100 mg PO BID 60 days #120 [facility] 10/20/23 Rx dutasteride 0.5 mg capsule 0.5 mg PO DAILY #90 [facility] 10/20/23 Rx sertraline 100 mg tablet 150 mg PO DAILY 10/20/23 10/20/23 History Allergies Allergy/AdvReac Type Severity Reaction Status Date / Time No Known Drug Allergies Allergy Verified 06/03/23 10:24 Exam Narrative Exam Narrative: He is afebrile and his vital signs are stable. He is resting comfortably and in no acute distress. Abdomen is benign. Penis is uncircumcised. Scrotum reveals normal left testicle. Right hemiscrotum is mildly erythematous. There is no evidence of skin breakdown or necrotic areas. The right hemiscrotum is enlarged and firm and tender. Constitutional Vital Signs, click to edit/add: Last Vital Signs Temp 97.8 F 10/20/23 16:00 Pulse 89 10/20/23 17:25 Resp 18 10/20/23 16:00 BP 106/65 10/20/23 16:00 Pulse Ox 93 L 10/20/23 16:00 O2 Del Method Room Air 10/20/23 16:00 Results Labs Labs: Short CBC 10/20/23 Range/Units 04:25 WBC 11.9 H (4.0-11.0) 10^3/uL Hgb 9.9 L (14.0-18.0) g/dL Hct 31.4 L (42.0-54.0) % Plt Count 155 (150-450) 10^3/uL BMP 10/20/23 04:25 Sodium 140 Potassium 3.9 Chloride 106 Carbon Dioxide 22.2 BUN 19.0 H Creatinine 1.17 Glucose 127 H Calcium 8.0 L Liver Function 10/20/23 Range/Units 04:25 Total Bilirubin 0.3 (0.2-1.0) mg/dL AST 14 L (15-37) U/L ALT 17 (16-63) U/L Alkaline Phosphatase 98 (46-116) U/L Albumin 2.9 L (3.4-5.0) g/dL Assessment and Plan Assessment and Plan (1) Acute UTI: Assessment and Plan: This gentleman probably has chronic prostatitis that waxes and wanes. Currently, he is most likely infected ENT: Does not have much sensation within his urinary tract from his diabetes. He is on Rocephin but that is not solving the problem. Gentamicin was added. He will get another dose of gent tonight. Tomorrow's white count will be evaluated. (2) Epididymitis: Assessment and Plan: This gentleman seems to have right-sided epididymitis. Likely, that is what he has. Ultrasonically, it is corroborated. He has a reactive mild hydrocele from it. I believe the origin of this is lackluster urination despite alpha-1 blockade. While in the hospital the Rocephin and gent should be continued. As an outpatient, he will need doxycycline 100 mg twice daily for 2 months. Follow-up with me will be in 1 month for reevaluation. (3) BPH w urinary obs/LUTS: Assessment and Plan: This gentleman does have bladder outlet obstructive symptoms despite his lack of recognition of this. He has significant incomplete emptying. He probably has a weak stream but does not realize it. He is taking alpha-1 blockade. I have sent a prescription for dutasteride 0.5 mg daily with refills. Over time he s hould gain some benefit with urination from this medication. Follow-up will be in 1 month and then 3 to 4 months thereafter. Over 30 minutes of clinical time was spent talking with the nursing staff, reviewing the patient's chart and scrotal ultrasound along with his CAT scan. Thank you for letting me take part in his care.
[2023-10-20] MEDS: MORPHINE SULFATE 2 MG/ML SYRINGE IV (21:24)
[2023-10-21] VITALS (18 sets, daily range): BP systolic 117–123; BP diastolic 72–83; PULSE 81–139; TEMP 36.3–37.2; O2SAT 93–94
[2023-10-21] MEDS: KETOROLAC TROMETHAMINE 30 MG/ML VIAL 15 MG IVP ×2 (02:02→22:46)
[2023-10-21] MEDS: GABAPENTIN 300 MG CAPSULE PO ×3 (02:02→18:51)
[2023-10-21 05:42] LABS: Basophils Percent Auto 0.2 % (0.2-2.0); Eosinophils Absolute Auto 0.2 10^3/uL (0.0-0.7); Eosinophils Percent Auto 2.5 % (0.9-7.0); Hematocrit 28.5 % (42.0-54.0); Hemoglobin 9.1 g/dL (14.0-18.0); Immature Granulocytes Abs Auto 0.03 10^3/uL (0.00-0.03); Immature Granulocytes Pct Auto 0.4 % (0.0-0.5); Lymphocytes Absolute Auto 1.6 10^3/uL (1.2-3.8); Lymphocytes Percent Auto 19.8 % (20.5-60.0); Mean Corpuscular HGB Conc 31.9 g/dL (29.9-35.2); Mean Corpuscular Volume 96.9 fL (80.0-94.0); Mean Platelet Volume 10.5 fL (9.5-13.5); Monocytes Absolute Auto 0.9 10^3/uL (0.3-0.8); Neutrophils Absolute Auto 5.5 10^3/uL (1.4-6.5); Neutrophils Percent Auto 66.1 % (43.0-75.0); Platelet Count 149 10^3/uL (150-450); Red Blood Count 2.94 10^6/uL (4.70-6.10); Red Cell Distribution Width 12.2 % (11.0-15.0); White Blood Count 8.3 10^3/uL (4.0-11.0)
[2023-10-21 05:58] LABS: Alanine Aminotransferase 15 U/L (16-63); Albumin Globulin Ratio 0.6; Albumin Level 2.6 g/dL (3.4-5.0); Alkaline Phosphatase 102 U/L (46-116); Anion Gap 12.7; Aspartate Amino Transferase 12 U/L (15-37); Bilirubin Total 0.3 mg/dL (0.2-1.0); Calcium 7.9 mg/dL (8.5-10.1); Chloride 107 mmol/L (98-107); Estimated GFR (African America >60 (>=60); Estimated GFR (Non-African Ame >60 (>=60); Globulin 4.3 g/dL; Glucose 124 mg/dL (74-106); Potassium 3.7 mmol/L (3.5-5.1); Sodium 138 mmol/L (136-145); Total Protein 6.9 g/dL (6.4-8.2)
[2023-10-21] MEDS: OMEPRAZOLE 20 MG CAPSULE.DR 40 MG PO (06:34)
--- NOTE | 2023-10-21 08:48 | P.PN_ITS ---
Progress Note: Subjective Subjective Interval history: Patient did well overnight. Pain is best managed by Toradol. Urology consult yesterday and recs on the chart. No new symptoms. no fever or chills. Just notes pain in right testicle/groin. Exam Narrative Exam Narrative: General: Patient is alert, and oriented to person, place and time with normal affect, proper hygiene Skin: no visible rashes, or ulcers Head: atraumatic, acephalic Eyes: PERRLA, no nystagmus present, conjunctiva clear, no scleral icterus Ears: normal gross auditory acuity Nose: symmetric, no discharge, no maxillary or frontal sinus tenderness Heart: Normal rate and rhythm, no murmurs/rubs/gallops Lungs: no audible wheezes, crackles and normal breath sounds all lung [place] Abdomen: Normal audible bowel sounds, no distension, no rebound/guarding/ or rigidity Musculoskeletal: no swelling bilateral lower extremities : erythema of the right inguinal fold appears to have resolved, erythema, tenderness/pain with palpation of the right testicle, right testicle is swollen, firm and is about double the size of the left testicle. Neuro: CN II-X grossly intact Constitutional Vital Signs, click to edit/add: Last Vital Signs Temp 97.4 F L 10/21/23 07:41 Pulse 81 10/21/23 08:00 Resp 20 10/21/23 07:41 BP 123/72 10/21/23 07:41 Pulse Ox 94 L 10/21/23 07:41 O2 Del Method Room Air 10/21/23 07:41 O2 Flow Rate 2 10/20/23 22:03 Progress Note: Objective Labs Labs: Short CBC 10/21/23 Range/Units 05:08 WBC 8.3 (4.0-11.0) 10^3/uL Hgb 9.1 L (14.0-18.0) g/dL Hct 28.5 L (42.0-54.0) % Plt Count 149 L (150-450) 10^3/uL BMP 10/21/23 05:08 Sodium 138 Potassium 3.7 Chloride 107 Carbon Dioxide 22.0 BUN 18.0 Creatinine 1.06 Glucose 124 H Calcium 7.9 L Liver Function 10/21/23 Range/Units 05:08 Total Bilirubin 0.3 (0.2-1.0) mg/dL AST 12 L (15-37) U/L ALT 15 L (16-63) U/L Alkaline Phosphatase 102 (46-116) U/L Albumin 2.6 L (3.4-5.0) g/dL Progress Note: A&P Assessment and Plan (1) Acute UTI: Assessment and Plan: patient with elevated WBC's of 12 down to 8.3, placed on Rocephin, UA positive for infection, urine culture pending. (2) Epididymitis: Assessment and Plan: as seen on exam, CT and U/S: placed on doxycycline, Urology came and evaluated patient, addition of gentomycin, recommended scrotal elevation and also doxycycline 100 BID x 2 months with 1 month follow up. Will keep patient on IV antibiotics another day and probable discharge tomorrow. (3) BPH w urinary obs/LUTS: Assessment and Plan: continue home med (4) Hypertension: Assessment and Plan: continue home meds Qualifiers: Hypertension type: primary hypertension Qualified Code(s): I10 - Essential (primary) hypertension (5) Afib: Assessment and Plan: takes aspirin daily, patient reports ablation in the past, recheck Echo by [facility] cards on the chart. continue home meds Qualifiers: Atrial fibrillation type: unspecified chronic Qualified Code(s): I48.20 - Chronic atrial fibrillation, unspecified (6) Non-insulin dependent type 2 diabetes mellitus: Assessment and Plan: ha1c 5.9. no record of medication for this. (7) Rheumatoid arthritis: Assessment and Plan: takes humira Qualifiers: Rheumatoid arthritis location: multiple sites Rheumatoid factor presence: unspecified presence Qualified Code(s): M06.9 - Rheumatoid arthritis, unspecified (8) Lumbar spondylosis: Assessment and Plan: takes lyrica and neurotin, was taking [place], recent [facility] Also takes Cymbalta and amitriptyline. Plan patient is a full code Lovenox for DVT prophylaxis continue IV antibiotics, hopeful discharge tomorrow.
[2023-10-21] MEDS: CEFTRIAXONE 1,000 MG in 0.9 % SODIUM CHLORIDE 50 ML 100 MG IV (09:10)
[2023-10-21] MEDS: ENOXAPARIN SODIUM 40 MG/0.4 ML SYRINGE SUBQ (09:15)
[2023-10-21] MEDS: DULOXETINE HCL 60 MG CAPSULE.DR PO (09:16)
[2023-10-21] MEDS: LIDOCAINE 5% PATCH 1 PATCH TOPICAL (09:16)
[2023-10-21] MEDS: SERTRALINE HCL 100 MG TABLET 150 MG PO (09:16)
[2023-10-21] MEDS: DOXYCYCLINE MONOHYDRATE 100 MG CAPSULE PO ×2 (09:16→22:46)
[2023-10-21] MEDS: FUROSEMIDE 40 MG TABLET PO (09:17)
[2023-10-21] MEDS: FOLIC ACID 1 MG TABLET PO (09:17)
[2023-10-21] MEDS: LISINOPRIL 10 MG TABLET PO (09:17)
[2023-10-21] MEDS: GENTAMICIN SULFATE 120 MG in 0.9 % SODIUM CHLORIDE 100 ML 206 MG IV (09:52)
[2023-10-21] MEDS: 0.9 % SODIUM CHLORIDE 250 ML 10 ML IV (09:56)
--- NOTE | 2023-10-21 10:04 | PT.DAILY ---
Physical Therapy Daily Note PT Daily Note/Assess Start: 10/21/23 10:01 Freq: Status: Active Protocol: Document 10/21/23 10:01 SHERIE (Rec: 10/21/23 10:04 SHERIE [id number]) Physical Therapy Daily Note/Assessment Time In/Time Out Time In 08:50 Time Out 09:10 Pain In Pain N/A Pain Out Pain N/A Subjective Subjective Pt supine upon arrival. Agreeable to PT. Denies pain at rest. Therapeutic Exercise Time Therapeutic Exercise Minutes (minutes) 5 Therapeutic Exercise Units 0 Therapeutic Exercise Treatment Therapeutic Exercise Treatment Seated bilat LE strengthening ex complete while sitting at EOB unsupported 10x ea. Ex complete to improve mobility prior to gait. Therapeutic Activity Time Therapeutic Activity Minutes (minutes) 8 Therapeutic Activity Units 1 Therapeutic Activity Treatment Bed Mobility Ability Standby Assistance Chair Transfer Ability Contact Guard Assist Therapeutic Activity Comments Supine>sit SBA with increased time needed. Pt able to andrae his own socks while sitting unsupported at EOB without any LOB. Pt completes seated ex at EOB without LOB. Sit>stand to RW CGA with elevated bed. Pt amb 40' with RW, CGA. Seems to be more steady on this date with RW vs IE yesterday. Pt reports min R LE pain with amb - describes it as a cramping pain. Pt is returned to room. Sitting EOB with nursing present and left under her care. Total Physical Therapy Time Total Therapy Minutes 13 Total Physical Therapy Units 1 Summary Daily Note Summary Improved transfer ability and gait endurance. Min pain in R LE with amb.
[2023-10-21] MEDS: KETOROLAC TROMETHAMINE 30 MG/ML VIAL IVP (10:59)
[2023-10-21] MEDS: HYDROCODONE/ACET 5-325 MG TABLET 1 TAB PO (20:09)
--- NOTE | 2023-10-21 20:30 | PC.NURSE ---
Telemonitor notified RN of tachycardia. HR staying in 140's. Patient was c/o pain 8/10 at this time. No cardiac symptoms at this time. BP 122/83 .Physician notified
[2023-10-21] MEDS: PRAZOSIN 2 MG 4 EACH PO (22:46)
[2023-10-21] MEDS: ATORVASTATIN CALCIUM 20 MG TABLET PO (22:46)
[2023-10-21] MEDS: AMITRIPTYLINE HCL 25 MG TABLET PO (22:46)
[2023-10-21] MEDS: METOPROLOL TARTRATE 50 MG TABLET PO (23:15)
[2023-10-22] VITALS (9 sets, daily range): BP systolic 99–119; BP diastolic 57–78; PULSE 66–71; TEMP 36.8; O2SAT 92–94
[2023-10-22] MEDS: GABAPENTIN 300 MG CAPSULE PO ×2 (01:57→09:34)
[2023-10-22 05:18] LABS: Basophils Percent Auto 0.5 % (0.2-2.0); Eosinophils Absolute Auto 0.3 10^3/uL (0.0-0.7); Eosinophils Percent Auto 3.9 % (0.9-7.0); Hematocrit 33.7 % (42.0-54.0); Hemoglobin 10.8 g/dL (14.0-18.0); Immature Granulocytes Abs Auto 0.02 10^3/uL (0.00-0.03); Immature Granulocytes Pct Auto 0.3 % (0.0-0.5); Lymphocytes Absolute Auto 1.4 10^3/uL (1.2-3.8); Lymphocytes Percent Auto 22.5 % (20.5-60.0); Mean Corpuscular Hemoglobin 30.5 pg (25.9-34.0); Mean Corpuscular Volume 95.2 fL (80.0-94.0); Mean Platelet Volume 10.6 fL (9.5-13.5); Monocytes Absolute Auto 0.7 10^3/uL (0.3-0.8); Monocytes Percent Auto 10.6 % (1.7-12.0); Neutrophils Percent Auto 62.2 % (43.0-75.0); Platelet Count 176 10^3/uL (150-450); Red Blood Count 3.54 10^6/uL (4.70-6.10); Red Cell Distribution Width 12.1 % (11.0-15.0); White Blood Count 6.4 10^3/uL (4.0-11.0)
[2023-10-22 05:38] LABS: Alanine Aminotransferase 18 U/L (16-63); Albumin Globulin Ratio 0.6; Albumin Level 2.9 g/dL (3.4-5.0); Alkaline Phosphatase 118 U/L (46-116); Aspartate Amino Transferase 20 U/L (15-37); BUN Creatinine Ratio 16.5; Bilirubin Total 0.3 mg/dL (0.2-1.0); Calcium 8.2 mg/dL (8.5-10.1); Carbon Dioxide 24.8 mmol/L (21.0-32.0); Chloride 104 mmol/L (98-107); Estimated GFR (African America >60 (>=60); Estimated GFR (Non-African Ame >60 (>=60); Globulin 4.8 g/dL; Glucose 159 mg/dL (74-106); Potassium 3.8 mmol/L (3.5-5.1); Sodium 138 mmol/L (136-145); Total Protein 7.7 g/dL (6.4-8.2)
[2023-10-22] MEDS: OMEPRAZOLE 20 MG CAPSULE.DR 40 MG PO (06:28)
--- NOTE | 2023-10-22 07:56 | CM.NOTE ---
Important Message From Medicare discussed with pt, pt verbalizes understanding and signs paper. Original given to pt and copy placed in pt's chart.
--- NOTE | 2023-10-22 08:00 | PC.NURSE ---
Service Vehicle Operator contacted [facility] in Infection control. Patient is not required to be on any type of Precautions d/t the e coli in his urine not being drug restistant.
[2023-10-22] MEDS: FUROSEMIDE 40 MG TABLET PO (08:19)
[2023-10-22] MEDS: SERTRALINE HCL 100 MG TABLET 150 MG PO (08:19)
[2023-10-22] MEDS: DOXYCYCLINE MONOHYDRATE 100 MG CAPSULE PO (08:19)
[2023-10-22] MEDS: DULOXETINE HCL 60 MG CAPSULE.DR PO (08:20)
[2023-10-22] MEDS: LISINOPRIL 10 MG TABLET PO (08:20)
[2023-10-22] MEDS: FOLIC ACID 1 MG TABLET PO (08:20)
[2023-10-22] MEDS: METOPROLOL TARTRATE 50 MG TABLET PO (08:20)
[2023-10-22] MEDS: ENOXAPARIN SODIUM 40 MG/0.4 ML SYRINGE SUBQ (08:21)
[2023-10-22] MEDS: CEFTRIAXONE 1,000 MG in 0.9 % SODIUM CHLORIDE 50 ML 100 MG IV (08:21)
[2023-10-22] MEDS: LIDOCAINE 5% PATCH 1 PATCH TOPICAL (08:27)
[2023-10-22] MEDS: HYDROCODONE/ACET 5-325 MG TABLET 1 TAB PO (08:32)
--- NOTE | 2023-10-22 09:07 | P.DS_ITS ---
DS: Providers Provider Date of admission: 10/19/23 17:32 Primary care physician: Niru Flynn MD Admitting clinician: Patricia Loya Consults: 10/19/23 17:06 Occupational Therapy Eval and Treat Routine Reason for consultation: weakness Has provider been notified: No Physical Therapy Eval and Treat Routine Reason for consultation: weakness Has provider been notified: No 10/20/23 09:41 Consult to Urology Routine Consulting Provider: Chet Flanagan Reason for consultation: testicular pain/swelling/epididimytitis/seminal vesciculitis Has provider been notified: No Discharging clinician: Patricia Loya DS: Diagnosis Discharge Diagnosis (1) Acute UTI: (2) Epididymitis: (3) BPH w urinary obs/LUTS: (4) Hypertension: Qualifiers: Hypertension type: primary hypertension Qualified Code(s): I10 - Essential (primary) hypertension (5) Afib: Qualifiers: Atrial fibrillation type: unspecified chronic Qualified Code(s): I48.20 - Chronic atrial fibrillation, unspecified (6) Non-insulin dependent type 2 diabetes mellitus: (7) Rheumatoid arthritis: Qualifiers: Rheumatoid arthritis location: multiple sites Rheumatoid factor presence: unspecified presence Qualified Code(s): M06.9 - Rheumatoid arthritis, unspecified (8) Lumbar spondylosis: DS: Summary Hospital Course Hospital Course: Patient is a 68 year old white male with past medical history of noninsulin dependent type 2 diabetes, chronic lumbar back pain (previously followed with pain management), GERD, HLD, Afib, and who presented to the ER 10/20/23 with increased pain and swelling of the right testicle. Patient reports that about a week ago he had left testicular swelling which resolved on it's own, This swelling started about 2 days ago. He has also felt weak. Denies fevers or chills, n/v/ or diarrhea. [facility] for missing too many appointments. He follows with Dr. Flynn for his PCP. He also had a family court registrar at [facility] that he sees for his Afib history. He denies any blood clot history, denies any lung issues. 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 He has had previous back surgeries was taking opioids for pain control. Findings showed UA positive for UTI, WBC's elevation of 12, Urine culture sent which grew E.coli, was on rocephin but will place on keflex 500mg BID x 7 days as outpatient. Patient had CT of abd/pelvis that showed enlarged prostate gland, sigmoid diverticula, possible dilation of the right femoral vein, right seminal vesiculitis, and small bilateral inguinal hernias, posterior fusion L3-S1 with prior kyphoplasty. CXR negative, Scrotal ultrasound showed right acute epididymitis and moderate hydrocele; Urology consulted, recommended Gentamycin and at discharge doxycycline 100mg BID x 2 months. Venous Doppler study of the right lower extremity was negative for DVT. At the time of discharge, WBC's are normal, renal function is normal. I have also placed on Mobic for pain as Toradol seemed to help best. He is to have close follow up with Urology and PCP. Exam finds below but right testicle has improved in size and also less redness. He is to return to the ER with any worsening signs or symptoms. Status at Discharge Functional status at discharge: uses cane/walker Overall status at discharge: patient is progressing back to baseline Time Spent with Patient Time attestation: Total time spent providing and/or coordinating discharge services: Time spent: greater than 30 minutes Exam Narrative Exam Narrative: General: Patient is alert, and oriented to person, place and time with normal affect, proper hygiene Head: atraumatic, acephalic Eyes: PERRLA, no nystagmus present, conjunctiva clear, no scleral icterus Ears: normal gross auditory acuity Nose: symmetric, no discharge, no maxillary or frontal sinus tenderness Heart: Normal rate and rhythm, no murmurs/rubs/gallops Lungs: no audible wheezes, crackles and normal breath sounds all lung [place] Abdomen: Normal audible bowel sounds, no distension, no rebound/guarding/ or rigidity Musculoskeletal: no swelling bilateral lower extremities : tenderness/pain with palpation of the right testicle but has decreased in size from previous exam, also less erythema noted Neuro: CN II-X grossly intact Constitutional Vital Signs, click to edit/add: Last Vital Signs Temp 98.2 F 10/22/23 04:00 Pulse 68 10/22/23 05:51 Resp 16 10/22/23 08:00 BP 119/78 10/22/23 08:20 Pulse Ox 93 L 10/22/23 04:00 O2 Del Method Room Air 10/22/23 04:00 O2 Flow Rate 2 10/20/23 22:03 DS: Data Data Completed and Pending Labs on day of discharge: Labs from last 24 hours 10/22/23 04:38 WBC 6.4 RBC 3.54 L Hgb 10.8 L Hct 33.7 L MCV 95.2 H MCH 30.5 MCHC 32.0 RDW 12.1 Plt Count 176 MPV 10.6 Neut % (Auto) 62.2 Lymph % (Auto) 22.5 [place] % (Auto) 10.6 Eos % (Auto) 3.9 Baso % (Auto) 0.5 Neut # (Auto) 4.0 Lymph # (Auto) 1.4 [place] # (Auto) 0.7 Eos # (Auto) 0.3 Baso # (Auto) 0.0 Abs Immat Gran (auto) 0.02 Imm/Tot Granulo (auto) 0.3 Sodium 138 Potassium 3.8 Chloride 104 Carbon Dioxide 24.8 Anion Gap 13.0 BUN 18.0 Creatinine 1.09 Est GFR ( Amer) >60 Est GFR (Non-Af Amer) >60 BUN/Creatinine Ratio 16.5 Glucose 159 H Calcium 8.2 L Total Bilirubin 0.3 AST 20 ALT 18 Alkaline Phosphatase 118 H Total Protein 7.7 Albumin 2.9 L Globulin 4.8 Albumin/Globulin Ratio 0.6 Preliminary micro results at discharge 10/19/23 16:57 - Preliminary Blood NO GROWTH AT 36-48 HOURS. FINAL TO FOLLOW. 10/19/23 16:50 Blood Culture Result 1 - Preliminary Blood NO GROWTH AT 36-48 HOURS. FINAL TO FOLLOW. Discharge Plan Discharge Disposition: Home, Self-Care Discharge Medications: New dutasteride 0.5 mg capsule 0.5 mg PO DAILY Qty: 90 3RF doxycycline hyclate 100 mg capsule 100 mg PO BID 60 Days Qty: 120 0RF meloxicam 7.5 mg tablet 7.5 mg PO DAILY Qty: 10 0RF cephalexin 500 mg capsule 500 mg PO BID 7 Days Qty: 14 0RF Continued amitriptyline 25 mg tablet 25 mg PO BEDTIME duloxetine 60 mg capsule,delayed release(DR/EC) 60 mg PO DAILY furosemide 40 mg tablet 40 mg PO DAILY Humira(CF) 40 mg/0.4 mL syringe kit 40 mg subcut QWEEK lisinopril 10 mg tablet 10 mg PO DAILY multivitamin [Multiple Vitamins] Tablet 1 tab PO DAILY metoprolol tartrate 50 mg tablet 50 mg PO BID omeprazole 40 mg capsule,delayed release(DR/EC) 40 mg PO DAILY hydrocodone-acetaminophen 5-325 mg tablet 1 tab PO BID PRN (Reason: pain) Qty: 60 0RF gabapentin 300 mg capsule 300 mg PO Q8H prazosin 1 mg capsule 4 mg PO BEDTIME mirtazapine 15 mg tablet 15 mg PO QPM PRN (Reason: sleep) atorvastatin 20 mg tablet 20 mg PO BEDTIME folic acid 1 mg tablet 1 mg PO DAILY alendronate 70 mg tablet 70 mg PO QWEEK Patient Comments: TAKE EVERY SATURDAY lidocaine 5 % adhesive patch,medicated 1 patch topical DAILY Rx Instructions: leave on most painful area for up to 12 hrs sertraline 100 mg tablet 150 mg PO DAILY calcium citrate 200 mg (950 mg) tablet 200 mg PO BID Activity: ambulate only with your walker and increase activity as tolerated Diet: advance to your usual diet Print Language: [place] Citizen Patient Instructions: Cephalexin (By mouth), Doxycycline (By mouth), Meloxicam (By mouth), Dutasteride (By mouth), Epididymitis (ED), Urinary Tract Infection in Older Adults (DC) Forms: Portal Instructions Follow Up Appointments: October 27 @ 10am with Dr. Flynn [phone] . November 18 @ 8am with Dr Flanagan [facility], [address] , [facility], [place] [phone] Discharge location: Home
--- NOTE | 2023-10-22 10:20 | SWNOTE1 ---
SW met with pt to discuss dc needs. Pt lives at home with his . Pt still drives and tries to stay active. Pt has a cane at home that he normally uses. Therapy does recommend a wheeled walker and home health at discharge. SW did ask pt if he has a walker at home, he stated he has one with a seat. Pt has a rollator. SW and pt discussed the benefits of having home health therapy come in for a short time. SW did explain home health to patient. Pt voiced he does not want home health at this time. SW encouraged pt to continue to do exercises at home. SW again asked if pt is sure he does not want HH for his safety at home. Pt refuses HH at this time. JAMIR updated case management.
--- NOTE | 2023-10-22 11:06 | REH.PTDLY ---
Physical Therapy Daily Note PT Daily Note/Assess Start: 10/21/23 10:01 Freq: Status: Active Protocol: Document 10/22/23 10:55 JACQUES (Rec: 10/22/23 11:06 JACQUES Laptop) Physical Therapy Daily Note/Assessment Time In 09:45 Time Out 09:56 Pain Level 8 Pain Level 8 Subjective Pt reports pain seems to be all over, does not specify specific area. Therapeutic Exercise Minutes (minutes) 7 Therapeutic Exercise Units 1 Therapeutic Exercise Treatment Instructed in B LE seated exs 10x ea with AP, LAQ, marching, and hip abd for improved mobility and strength. Pt completed standing marching 12x ea and then needs to sit due to fatigue. Therapeutic Activity Minutes (minutes) 4 Therapeutic Activity Units 1 Therapeutic Activity Comments Cues with initial sit to stand as pt grabs middle of RW to try and pull himself up, pt requires Min A with standing. Gait training with RW CGA as R LE seems to buckle at times for 50 feet. Pt reports increased pressure and discomfort in thigh. Pt returns to chair and furthered education with sit to stands having pt perform 3 in a row pushing off from chair with B UEs. Weakness is noted and pt struggles at first. Total Therapy Minutes 11 Total Physical Therapy Units 2 Daily Note Summary Progressed gait distance today with increased discomfort in R LE and weakness noted. Education and practice needed with sit to stands for safety. Fatigue noted post rx.
--- NOTE | 2023-10-22 11:31 | CM.NOTE ---
Rounds made with Dr. Loya, pt will discharge to home today and f/u with Dr. Melendez's in 1 month. No other discharge needs identified.
[2023-10-22] MEDS: KETOROLAC TROMETHAMINE 30 MG/ML VIAL IVP (12:06)
--- NOTE | 2023-10-23 14:44 | CM.DCFOLLOWU ---
10/21- 1st attempt. No answer
[2023-10-23 20:08] LABS: Neisseria gonorrhoeae, NAA Negative (Negative)
--- NOTE | 2023-10-24 14:48 | CM.DCFOLLOWU ---
2nd attempt 10/24/23, no answer
== END 2023-10-22 12:40 | disposition home or self-care (01) | DRG 690 ==
LOC: ER 13:17 → MS 17:37
PROVIDERS: Admitting Provider Family Medicine; Emergency Provider Emergency Medicine; PCP Family Medicine; Visit Provider Family Medicine
DX: N39.0 Urinary tract infection, site not specified (principal); I48.20 Chronic atrial fibrillation, unspecified; N45.1 Epididymitis; N40.1 Benign prostatic hyperplasia with lower urinary tract symptoms; I10 Essential (primary) hypertension; E11.9 Type 2 diabetes mellitus without complications; M06.9 Rheumatoid arthritis, unspecified; E78.2 Mixed hyperlipidemia; M47.816 Spondylosis without myelopathy or radiculopathy, lumbar region; R33.9 Retention of urine, unspecified; R39.12 Poor urinary stream; K57.30 Diverticulosis of large intestine without perforation or abscess without bleeding; I77.6 Arteritis, unspecified; K21.9 Gastro-esophageal reflux disease without esophagitis; M19.90 Unspecified osteoarthritis, unspecified site; M47.26 Other spondylosis with radiculopathy, lumbar region; Z98.1 Arthrodesis status; Z90.5 Acquired absence of kidney; Z79.82 Long term (current) use of aspirin; Z79.899 Other long term (current) drug therapy; B96.20 Unspecified Escherichia coli [E. coli] as the cause of diseases classified elsewhere
CPT/HCPCS: 36415; 51798; 71045; 74176; 76870; 80053; 80320; 81001; 83036; 83605; 83690; 83735; 84484; 85025; 85610; 87040; 87086; 87150; 87186; 87491; 87591; 93005; 93971; 93976; 94761; 96365; 96366; 96367; 96372; 96375; 96376; 97110; 97162; 97165; 97530; 99285

== ENCOUNTER 2024-01-29 08:38 | Outpatient (OUT) | payer MEDICARE, OTHER, SELFPAY ==
--- OUTSIDE RECORDS SUMMARY | 2024-01-29 09:02 | XMS_ITS | CCD ---
Author Organization [facility] Care Team Providers Care Manager Business Information Name Role Phone Mike Yuan MD Primary [...] TANNER ., DR LOUISE Ewing Consulting Unavailable RIOSAUTUMN BLANC Consulting Unavailable MAGALLANES . DEVAN Consulting Unavailable DR MIKE YUAN Primary Care Unavailable TANNER ., DR LOUISE Ewing Attending Unavailable TANNER ., DR LOUISE Ewing Admitting Unavailable LAKSHMIPATHY ., NARENDALYSSAATH Attending Pia vailable LAKSHMIPATHY ., NARJUAN JOSEATH Admitting Pia vailable DR JENNIFER RAGSDALE Primary Care Unavailable FLORES ., DR LOUISE Ewing Attending Unavailable DR MIKE YUAN Primary Care Unavailable FLORES ., DR LOUISE Ewing Admitting Unavailable LAKSHMIPATHY ., NARJUAN JOSEATH Consulting Pia vailable LAKSHMIPATHY ., NARENDRANATH Attending Pia vailable LAKSHMIPATHY ., NARENDRANATH Admitting Pia vailable BALL, DR RODRIGUEZ Primary Care Unavailable TANNER ., DR LOUISE Ewing Attending Unavailable YUAN, DR MIKE Wong Primary Care Unavailable TANNER ., DR LOUISE Ewing Admitting Unavailable TANNER ., DR LOUISE Ewing Consulting Unavailable [facility] DR BLANKENSHIP Attending Unavailable ELTAHAWY, DR BLANKENSHIP Admitting Unavailable BALL, DR RODRIGUEZ Primary Care Unavailable [facility], DR BLANKENSHIP Consulting Unavailable ZIEBER, DR REILLY [...] ., NARENDRANATH Admitting Pia vailable LAKSHMIPATHY ., BALDOATH Attending Pia vailable ZIEBER, DR REILLY Mattson Consulting Unavailable YUAN, DR MIKE Wong Primary Care Unavailable LAKSHMIPATHY ., JACQUELYNENDRANATH Consulting Pia vailable FAWWAD, APARICIO H Admitting Unavailable YUAN, DR MIKE Wong Primary Care Unavailable FAWWAD, APARICIO H Attending Unavailable VIENNA, DR RAMONA Carmichael Consulting Unavailable JOSE GFARHAD ., MELINDA QUINTANILLA Consulting [facility] FANENA, APARICIO H Consulting Unavailable SISTER, ADAM Consulting Unavailable [facility], PANDA Consulting Unavailable MAGALLANES ., DEVAN Consulting [...] TANNER ., DR LOUISE Ewing Consulting Unavailable TANNER ., DR LOUISE Ewing Attending Unavailable BELINDA HOLLINGSWORTH Consulting Unavailable REILLY BETATY Consulting Unavailable Mike Yuan Unavailable IRAIS Hernandez Primary Care Provider [phone] IRAIS Hernandez Attending Provider [phone] MD Mike Yuan Other Provider [phone] Berta Hernandez Attending Unavailable Berta Hernandez Primary Care Unavailable Berta Hernandez Admitting Unavailable Mike Yuan Consulting Unavailable Jc NIETO, Lesley Altamirano Attending Unavailable Jc NIETO, Lesley Altamirano Attending Unavailable RAVEN PRADO Attending Unavailable MIKE YUAN Primary Care Physician Usha Benoit Attending Unavailable Usha Benoit Attending Unavailable Chet SHELL Attending Unavailable Chet SHELL Referring Unavailable Usha Benoit Attending Unavailable Usha Benoit Attending Unavailable Allergies Allergy Classification Reported Allergen(s) Allergy Type Date of Onset Reaction(s) Facility (1 source) No Known Medication Allergies; Translations: [No Known Medication Allergies] Propensity to adverse reactions (disorder) [facility] Medications Current Medications Medication Drug Class(es) Dates Sig (Normalized) Sig (Original) aspirin 325 mg delayed release oral tablet [...] mg docusate sodium 50 mg / sennosides, custodial 8.6 mg oral tablet (3 sources) Start: 12-06-2020 End: 12-18-2020 take 1 tablet by mouth twice daily sennosides-docusate sodium (SENOKOT-S) 8.6-50 MG tablet Take 1 tablet by mouth 2 times daily for 10 days 20 tablet 0 12/08/2020 12/18/2020 Active finasteride 5 mg oral tablet (2 sources) 5-alpha Reductase Inhibitor Start: 11-21-2023 take 1 tablet by mouth once daily finasteride 5 mg Tab 5 mg = 1 tab(s), Oral, Daily, # 30 tab(s), Refills(s) 11, Pharmacy: [facility] #[id number], 165, cm, 11/21/23 15:37:00 EDT, Height/Length Dosing, 77, kg, 11/21/23 15:37:00 EDT, Weight Dosing Start Date: 11/21/23 Status: Ordered glucagon (rdna) 1 mg injection (2 sources) Antihypoglycemic Agent Start: 09-05-2021 glucagon (rDNA) injection 1 mg Start: 12-06-2020 take [...] or glucagon. Start: 12-06-2020 15 g, Oral, NJ N, Low blood sugar, Starting on Sat12/06/20 [...] Units, Subcutaneous, NIG HTLY, First dose on Sat06/04/19 at 2100 If continuous tube feedings/TPN/NPO, give [...] 350-400 10 Units Above 400 12 Units lidocaine 0.05 mg/mg medicated patch (3 sources) Antiarrhythmic, Amide Local Anesthetic Start: 09-02-2023 lidocaine Top 5% hannah m Patch Refill(s) 0, TRANSDERMAL, 0 Refill(s) Start Date: 09/02/23 Status: Ordered mirtazapine 15 mg oral tablet (3 sources) Start: 12-25-2022 morphine (PF) injection 2 mg (2 sources) Start: 09-05-2021 morphine (PF) injection 2 mg Start: 06-04-2019 morphine (PF) injection 2 mg omeprazole 20 mg delayed rel ease oral capsule (11 sources) Proton Pump Inhibitor Start: 09-02-2023 take 1 capsule by mouth once satya ly omeprazole (PRILOSEC) 20 MG delayed release capsule Take 20 mg by mouth daily 0 Active 2 ml ondansetron 2 mg/ml injection (1 source) Serotonin-3 Receptor Antagonist Start: 06-04-2019 4 mg, Intravenous, EVERY 6 HOURS PRN, Nausea, Vomiting, Starting Sat06/04/19 at 1536, Post-op ondansetron (ZOFRAN-ODT) disintegrating tablet 4 mg (1 source) Start: 09-05-2021 ondansetron (ZOFRAN-ODT) disintegrating tablet 4 mg 1000 ml potassium chloride 0.02 meq/ml / sodium chloride 4.5 mg/ml injection (1 source) Start: 12-06-2020 100 mL/hr, Intravenous, at 100 mL/hr, CONTINUOUS, Starting on Sat12/06/20 at 1530, Post-op prazosin 1 mg oral capsule (3 sources) alpha-Adrenergic Ayana Start: 06-27-2023 prednisoLONE 3 mg/ml oral solution (9 sources) Corticosteroid Start: 12-06-2020 take 5 mg by mouth [...] Promethazine (1 source) Phenothiazine Start: 12-06-2020 promethazine (PHENERGAN) tablet 12.5 mg sulfamethoxazole 800 mg / trimethoprim 160 mg oral tablet (1 source) Dihydrofolate Reductase Inhibitor Antibacterial, Sulfonamide Antimicrobial Start: 11-21-2023 End: 01-02-2024 take 1 tablet by mouth twice daily Bactrim D.S. 800 mg-160 mg Tab 1 tab(s), Oral, BID for 6 week(s), 84 sponge(s), Refill(s) 0, [facility] #[id number], 165, cm, 11/21/23 15:37:00 EDT, Height/Length Dosing, 77, kg, 11/21/23 15:37:00 EDT, Weight Dosing Start Date: 11/21/23 Stop Date: 01/02/24 Status: Ordered Completed/Discontinued Medications Medication Drug Class(es) Dates Sig [...] 08-22-2021 acetaminophen (TYLENOL) tabl et 650 mg acetaminophen 325 mg / HYDROcodone bitartrate 5 mg oral tablet (18 sources) Opioid Agonist Start: 11-14-2023 acetaminophen- hydrocodone 325 mg-5 mg oral tablet Refill(s) 0, 60 EA, 0 Refill(s), take 1 tablet by mouth twice a day NEEDED FOR PAIN Start Date: 11/14/23 Status: Ordered Start: 12-06-2021 End: 12-09-2021 HYDROcodone-acetaminophen (N ORCO) 5-325 MG per tablet Indications: Closed fracture [...] 3 times daily. 0 06/06/2019 Discontinued (REORDER) adalimumab (11 sources) Tumor Necrosis Factor Ayana Start: 09-26-2022 Start: 06-04-2019 40 mg, Subcuta neous, EVERY 14 DAYS, First dose on Shalonda 06/04/19 at 1600 Non-Formulary with no TI: Adalimumab (Humira) End: 09-06-2021 Adalimumab 20 MG/0.4ML PSKT Inject 40 mg into the skin every 7 days 0 09/06/2021 Discontinued (Stop Taking at Discharge) Adalimumab 20 MG /0.4ML PSKT Inject 40 mg into the skin every 14 days 0 Active alendronic acid 70 mg oral tablet (3 sources) Bisphosphonate Start: 04-11-2023 amitriptyline hydrochloride 50 mg oral tablet (17 sources) Tricyclic Antidepressant Start: 11-14-2023 amitriptyline 50 mg Tab 30 EA, 0 Refill(s), take 1 tablet by mouth at bedtime, Refills(s) 0 Start Date: 11/14/23 Status: Ordered Start: 09-05-2021 take 50 mg by mouth once daily 50 mg, Oral, DAILY, First dose on Sat09/05/21 at 1500, Until Discontinued Start: 06-04-2019 take 50 mg by mouth once daily 50 mg, Oral, DAILY, First dose on Sat06/04/19 at 1600 Start: 05-07-2019 take 1 tablet by evangelist th once daily amitriptyline (ELAVIL) 50 MG tablet Take 50 mg by mouth daily 0 05/07/2019 Active ascorbic acid 500 mg oral tablet (11 sources) Vitamin C Start: 06-04-2019 take 500 mg by mouth once daily 500 mg, Oral, DAILY, First dose on Sat09/06/21 at 0900, Until Discontinued atorvastatin 20 mg oral tablet (3 sources) HMG-CoA Reductase Inhibitor Start: 09-02-2023 calcium chloride 0.0014 meq/ml / potassium chloride 0.004 meq/ml / sodium chloride 0.103 meq/ml / sodium lactate 0.028 meq/ml injectable solution (5 sources) Start: 09-05-2021 End: 09-05-2021 lactated ringers infusion Start: 08-22-2021 lactated ringe rs infusion Start: 12-06-2020 End: 12-06-2020 lactated ringers infusion Start: 06-04-2019 End: 06-04-2019 lactated ringers infusion calcium citrate 950 mg oral tablet (3 sources) Start: 04-16-2023 ceFAZolin (2 sources) Cephalosporin Antibacterial Start: 09-05-2021 [...] dose on Sat09/05/21 at 2100, Until Discontinued doxycycline hyclate 100 mg oral capsule (3 sources) Tetracycline-class Drug Start: 11-14-2023 doxycycline hyclate 100 mg Cap 120 EA, 0 Refill(s), take 1 capsule by mouth twice a day, Refills(s) 0 Start Date: 11/14/23 Status: Ordered DULoxetine 60 mg delayed release oral capsule (17 sources) Serotonin and Norepinephrine Reuptake Inhibitor Start: 11-14-2023 duloxetine 60 mg oral delayed release capsule 90 EA, 0 Refill(s), take 1 capsule by mouth once daily, Refills(s) 0 Start Date: 11/14/23 Status: Ordered Start: 05-27-2019 take 1 capsule by [facility] once daily DULoxetine (CYMBALTA) 60 MG extended release capsule Take 60 mg by mouth daily 0 05/27/2019 Active 2 ml fentaNYL 0.05 mg/ml injection (8 [...] Active folic acid 1 mg oral tablet (14 sources) Start: 04-09-2023 Start: 06-04-2019 take 1 mg by mouth once daily 1 mg, Oral, DAILY, First dose on Sat09/06/21 at 0900, Until Discontinued furosemide 40 mg oral tablet (14 sources) Loop Diuretic Start: 04-09-2023 Start: 06-04-2019 take 40 mg by mouth once daily 40 mg, Oral, DAILY, First dose on Sat09/05/21 at 1500, Until Discontinued gabapentin 300 mg oral capsu le (12 sources) Anti-epileptic Agent Start: 04-22-2023 Start: 09-06-2021 gabapentin (NE URONTIN) capsule 300 mg Start: 09-05-2021 gabapentin (NE [...] by mouth daily. 0 06/06/2019 Discontinued (REORDER) 1 ml HYDROmorphone hydrochloride 1 mg/ml cartridge [...] 15 mg lisinopril 10 mg oral tablet (14 sources) Angiotensin Converting Enzyme Inhibitor Start: 09-02-2023 Start: 06-04-2019 take 10 mg by mouth [...] NIGHTLY, First dose on Sat12/06/20 at 2100 metoprolol tartrate 50 mg or al tablet (17 sources) beta-Adrenergic Ayana Start: 09-02-2023 Start: 06-04-2019 metoprolol suc cinate (TOPROL XL) extended release tablet 50 mg Multiple Vitamins-Minerals (MULTIVITAMIN ADULT PO) (1 source) End: 06-06-2019 take 1 tablet by mouth once daily Multiple Vitamins-Minerals (MULTIVITAMIN ADULT PO) Take 1 tablet by mouth daily 0 06/06/2019 Discontinued (Stop Taking at Discharge) Multivitamin preparation (3 sources) Start: 11-14-2023 oxyCODONE hydrochloride 5 mg oral tablet (1 [...] Omeprazole (PRILOSEC). sertraline 100 mg oral tablet (18 sources) Serotonin Reuptake Inhibitor Start: 11-14-2023 sertraline 100 mg Ta b 135 EA, 0 Refill(s), take 1 AND 1/2 tablets by mouth once daily, Refills(s) 0 Start Date: 11/14/23 Status: Ordered Start: 05-05-2019 take 100 mg by mouth twice daily 100 mg, Oral, 2 TIMES DAILY, First dose on Sat09/05/21 at 2100, Until Discontinued take 1 tablet by evangelist th once daily Sertraline HCl 100 MG take 1 AND [...] FAILURE UNSPECIFIED] Onset: 10-23-2022 Episodic Cardiac dysrhythmias (12 sources) Atrial fibrillation; Translations: [Unspecified atrial fibrillation] [...] disease (2 sources) Atherosclerotic heart disease of [place] coronary artery without angina pectoris; Translations: [Coronary [...] Onset: 10-23-2022 Chronic Diabetes mellitus without complication (12 sources) Type 2 diabetes mellitus without complication; Translations: [Type 2 diabetes mellitus without complications] Onset: 10-28-2013 11-25-2020 Chronic Disorders of lipid metabolism (3 sources) Hyperlipidemia Onset: 07-18-2023 11-14-2023 Chronic E Codes: Fall (1 source) Unspecified fall, initial encounter; Translations: [UNSPECIFIED FALL INITIAL ENCOUNTER] Onset: 10-23-2022 Episodic Esophageal disorders (1 source) Gastro-esophageal reflux disease without esophagitis; Translations: [GERD WITHOUT ESOPHAGITIS] Onset: 10-23-2022 Chronic Essential hypertension (15 sources) Essential hypertension; Translations: [Essential (primary) hypertension] Onset: 10-28-2013 11-25-2020 Chronic Fluid and electrolyte disorders (1 source) Dehydration; Translations: [DEHYDRATION] Onset: 10-23-2022 Episodic Fracture of upper limb (1 source) Closed fracture of shaft of left humerus; Translations: [Unspecified fracture of shaft of humerus, left arm, initial encounter for closed fracture] Episodic Gastrointestinal hemorrhage (1 source) Rectal hemorrhage; Translations: [Rectal Bleeding] Episodic Genitourinary symptoms and ill-defined conditions (3 sources) Retention of urine; Translations: [Retention of urine, unspecified] Onset: 11-21-2023 Episodic Headache; including migraine (2 sources) Headache 11-21-2023 Episodic Hyperplasia of prostate (3 sources) Benign prostatic hypertrophy without outflow obstruction; Translations: [Benign prostatic hyperplasia without lower urinary tract symptoms] Onset: 11-21-2023 Chronic Hypertension with complications and secondary hypertension (1 source) Hypertensive heart and chronic kidney disease with heart failure and stage 1 through stage 4 chronic kidney disease, or unspecified chronic kidney disease; Translations: [HTN HRT CKD W/HF STAGE 1-4/UNS CKD] Onset: 10-23-2022 Chronic Inflammatory conditions of male genital organs (3 sources) Epididymitis; Translations: [Epididymitis] Onset: 11-21-2023 Episodic Mood disorders (3 sources) Recurrent major depression; Translations: [Major depressive disorder, recurrent, unspecified] Chronic Mood disorders (1 source) Mood disorders; Translations: [DEPRESSION UNSPECIFIED] Onset: 10-23-2022 Osteoarthritis (2 sources) Arthritis 11-21-2023 Chronic Other aftercare (1 source) Other chcf (current) drug therapy; Translations: [OTH USP CURRENT DRUG THERAPY] Onset: 10-23-2022 Episodic Other aftercare (1 source) 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) use of non-steroidal anti-inflammatories (NSAID); Translations: [RELIEF SALESPERSON USE NSAID] Onset: 10-23-2022 Episodic Other aftercare (1 source) 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) use of aspirin; Translations: [RELIEF SALESPERSON CURRENT USE OF ASPIRIN] Onset: 10-23-2022 Episodic [...] [HISTORY OF FALLING] Onset: 10-23-2022 Episodic Other liver diseases (2 sources) Inflammatory disease of liver 11-21-2023 Chronic Other male genital disorders (2 sources) Hydrocele of testis; Translations: [Hydrocele, unspecified] Onset: 11-21-2023 Episodic Other male genital disorders (1 source) Disorder of male genital organ 01-14-2024 Episodic Other nervous system disorders (2 sources) Other chronic pain; Translations: [OTHER CHRONIC PAIN] Onset: 04-29-2023 Chronic Other nervous system disorders (1 source) [...] [PAIN IN LEFT HIP] Onset: 09-22-2022 Episodic Other screening for suspected conditions (not mental disorders or infectious disease) (1 source) Encounter for screening for malignant neoplasm of prostate; Translations: [Screening for malignant neoplasm done] Onset: 01-14-2024 Episodic Pathological fracture (1 source) Pathological fracture, [...] [OTH SPECIFIED POSTPROCEDURAL STATES] Onset: 10-23-2022 Episodic Rheumatoid arthritis and related disease (3 sources) Rheumatoid arthritis Onset: 07-18-2023 11-14-2023 Chronic Screening and history of mental health and [...] Test Name Value Interpretation Reference Range Facility Ambulatory Visit Summaryon 0 01-14-2024 Ambulatory Visit Summary Ambulatory Visit Summary DEONDRE LR :1955 Visit Date:01/14/2024 Ambulatory Visit Instructions Your Diagnosis BPH (benign prostatic hyperplasia) Incomplete emptying of bladder Screening for prostate cancer Epididymitis Hydrocele Your Care Team Attending Physician - JERONIMO Benoit APRN, Usha Bolton Primary Care Physician - MIKE YUAN MD This Is Your Medications List Contact prescribing physician if questions or concerns acetaminophen-hydroc odone (acetaminophen-hydro codone 325 mg-5 mg oral tablet) adalimumab (adalimumab 20 mg/0.4 mL subcutaneous kit) alendronate (alendronate 70 mg Tab) amitriptyline (amitriptyline 50 mg Tab) atorvastatin (atorvastatin 20 mg Tab) calcium citrate (calcium (as calcium citrate) 200 mg oral tablet) doxycycline (doxycycline hyclate 100 mg Cap) duloxetine (duloxetine 60 mg oral delayed release capsule) finasteride (finasteride 5 mg Tab) folic acid (folic acid 1 mg Tab) furosemide (furosemide 40 mg Tab) gabapentin (gabapentin 300 mg Cap) lidocaine topical (lidocaine Top 5% film Patch) lisinopril (lisinopril 10 mg Tab) metoprolol (Metoprolol tartrate 50 mg Tab) mirtazapine (mirtazapine 15 mg Tab) multivitamin omeprazole (omeprazole 20 mg Cap-DR) prazosin (prazosin 1 mg Cap) sertraline (sertraline 100 mg Tab) Procedures Performed History of lumbar fusion, Left nephrectomy. Discharge Vitals Height 165 cm Height 65 in Weight 77 kg Weight 169.4 lb BMI 28.28 What to do next Scheduled Follow-Up Appointments Saturday 11:00 AM EST With: JEORNIMO Benoit APRN, Usha Bolton Where: [facility] [address] [place] [address]- You Need to Schedule the Following Appointments Follow Up with Kaycee BRAXTON, JERONIMO, Usha Bolton, FAM, URL When: Comments: F/up in 4-6 mos with PSA Where: Medications What How Much When Why Instructions Unchanged acetaminophen-hydroc odone (acetaminophen-hydro codone 325 mg-5 mg oral tablet) 60 EA, 0 Refill(s), take 1 tablet by mouth twice a day NEEDED FOR PAIN Contact prescribing physician if questions or concerns Unchanged adalimumab (adalimumab 20 mg/ 0.4 mL subcutaneous kit) 40 Unknown, subcutaneous, 0 Refill(s), Inject 0.8 mL (40 mg total) under the skin once a week. DO NOT RESUME UNTIL OCTOBER 14 Contact prescribing physician if questions or concerns Unchanged alendronate (alendronate 70 mg Tab) 70 Unknown, ORAL, 2 Refill(s) Contact prescribing physician if questions or concerns Unchanged amitriptyline (amitriptyline 50 mg Tab) 30 EA, 0 Refill(s), take 1 tablet by mouth at bedtime Contact prescribing physician if questions or concerns Unchanged atorvastatin (atorvastatin 20 mg Tab) 20 Unknown, ORAL, 0 Refill(s) Contact prescribing physician if questions or concerns Unchanged calcium citrate (calcium (as calcium citrate) 200 mg oral tablet) 200 Unknown, ORAL, 0 Refill(s) Contact prescribing physician if questions or concerns Unchanged doxycycline (doxycycline hyclate 100 mg Cap) 120 EA, 0 Refill(s), take 1 capsule by mouth twice a day Contact prescribing physician if questions or concerns Unchanged duloxetine (duloxetine 60 mg oral delayed release capsule) 90 EA, 0 Refill(s), take 1 capsule by mouth once daily Contact prescribing physician if questions or concerns Unchanged finasteride (finasteride 5 mg Tab) 1 Tablets By Mouth Every day BPH (benign prostatic hyperplasia) Contact prescribing physician if questions or concerns Unchanged folic acid (folic acid 1 mg Tab) 1 Unknown, ORAL, 0 Refill(s) Contact prescribing physician if questions or concerns Unchanged furosemide (furosemide 40 mg Tab) 40 Unknown, ORAL, 0 Refill(s) Contact prescribing physician if questions or concerns Unchanged gabapentin (gabapentin 300 mg Cap) 300 Unknown, ORAL, 0 Refill(s) Contact prescribing physician if questions or concerns Unchanged lidocaine topical (lidocaine Top 5% film Patch) TRANSDERMAL, 0 Refill(s) Contact prescribing physician if questions or concerns Unchanged lisinopril (lisinopril 10 mg Tab) 10 Unknown, ORAL, 0 Refill(s) Contact prescribing physician if questions or concerns Unchanged metoprolol (Metoprolol tartrate 50 mg Tab) 50 Unknown, ORAL, 0 Refill(s) Contact prescribing physician if questions or concerns Unchanged mirtazapine (mirtazapine 15 mg Tab) 15 Unknown, ORAL, 2 Refill(s) Contact prescribing physician if questions or concerns Unchanged multivitamin 1 Unknown, oral, 0 Refill(s), Take 1 tablet by mouth in the morning. Contact prescribing physician if questions or concerns Unchanged omeprazole (omeprazole 20 mg Cap-DR) 40 Unknown, ORAL, 0 Refill(s) Contact prescribing physician if questions or concerns Unchanged prazosin (prazosin 1 mg Cap) 3 Unknown, ORAL, 1 Refill(s) Contact prescribing physician if questions or concerns Unchanged sertraline (sertraline 100 mg Tab) 135 EA, 0 Refill(s), take (more content not included)... Normal [facility] Urology Office/Clinic Noteon 01-14-2024 Urology Office/Clinic Note Urology Office/Clinic Note Chief Complaint 8 week with PVR HPI Staff 8 week f/u with PVR Dx: epididymitis, BPH, incomplete emptying of bladder and hydrocele. Finasteride 5mg qd Dysuria: no Incomplete bladder emptying: no, PVR 34mL Hematuria: no Frequency: 2-3 hours or longer Urgency: no Nocturia: every 2-4 hours Stream: good stream Post void dripping: no Wearing pads/ Depends: no Urge incontinence: no Stress incontinence: no Incontinence without Sensory Awareness: no Abdominal pain:mild Flank pain: no Sexual complaints: _ History of Present Illness Tests reviewed: reviewed UA I have reviewed the previous health record information and history for this patient from Usha Benoit NP. I have reviewed and verified the staff HPI to be accurate for this encounter. Review of Systems PHQ Score Initial Depression Screen Score: 0 SCORE ROS - Provider Constitutional: denies weight loss, denies hot flashes. Eyes: denies eye problems. Gastrointestinal: denies nausea, denies vomiting. Cardiovascular: denies chest pain or angina. Integumentary: no dryness Musculoskeletal: denies musculoskeletal symptoms. ENMT: denies otolaryngeal symptoms. Respiratory: no shortness of breath. Heme/Lymph: denies easy bleeding tendency, denies easy bruising tendency. Psychiatric: no confusion, no anxiety. Genitourinary: See HPI. Physical Exam Vitals & Measurements HT: 65 in HT: 165 cm WT: 77 kg WT: 169.4 lb BMI: 28.28 General: Well developed, well nourished, in no acute distress. Genitourinary: normal scrotum, normal testes, normal urethra, normal epididymis, normal vas deferens/spermatic cord. Penis: normal shaft, normal glans. Assessment/Plan 1. BPH (benign prostatic hyperplasia) (N40.0: Benign prostatic hyperplasia without lower urinary tract symptoms) Pt is on prazosin 4 mg QD managed by his PCP. Patient states that he does not know what this medication is for, denies any side effects, states he has never been off of it for a period of time to know whether his urinary symptoms are worse without it. Started in finasteride at time of prior OV. Reiterated that this will take up to 6 mos to reach full effect. IPSS 27. Denies gross hematuria and dysuria. No urinary complaints. States he is overall satisfied with his urinary habits. Does not wish to proceed w/ cysto at this time/ -Cont prazosin & finasteride wo changes, call for refills. -F/up 4-6 mos to reassess urinary sxs w/ full effect of finasteride 2. Incomplete emptying of bladder (R33.9: Retention of urine, unspecified) PVR (cc): - 150 (pt refused catheter at the time) 01/14/24 - 34 UA today negative for blood and infection. Emptying improved at this time. Continue to monitor. 3. Screening for prostate cancer (Z12.5: Encounter for screening for malignant neoplasm of prostate) Pt does not believe he has ever had PSA checked. [place] [facility] [place] [facility]. -PSA order given to pt to get labs drawn @ [facility] for baseline, will call w/ results 4. Epididymitis (N45.1: Epididymitis) Seen in consult by PRW at [facility] on 10/20/2023 due to right testicular pain. Treated with IV Rocephin and discharged home with doxycycline 100 mg twice daily x 2 months. Scrotal ultrasound 10/19/2023 with right acute epididymitis and small to moderate hydrocele Most recent creatinine 1.17, creatinine clearance calculated at 58 Pt states he feels the swelling has improved with abx. Is now comfortable enough to sit down. Improved swelling and no discomfort to palpation on exam today. -Cont sxs monitoring 5. Hydrocele (N43.3: Hydrocele, unspecified) Scrotal ultrasound on 10/19/2023 with a small to moderate hydrocele Discussed use of scrotal support to reduce swelling, discomfort. -See #4 Follow-up With When Contact Information JERONIMO Benoit APRN, Usha Bolton, FAM, URL Patient Education Epididymitis Benign Prostatic Hyperplasia Prostate Cancer Screening I, Pati Gustafson, personally scribed for JERONIMO Rincon on 01/14/2024 11:12:27. . Documentation recorded by the giovana Gustafson accurately reflects the services(s) I performed and decisions made by me. Authenticated by Usha Benoit APRN, FNP-C on 01/14/2024 11:21:09. Problem List/Past Medical History Ongoing Arthritis Atrial fibrillation BPH (benign prostatic hyperplasia) Epididymitis Head ache Hepatitis Hydrocele Hyperlipidemia Hypertensive disorder Incomplete emptying of bladder Rheumatoid arthritis Spondylosis Type 2 diabetes mellitus Historical No qualifying data Procedure/Surgical History History of lumbar fusion, Left nephrectomy. Medications acetaminophen-hydroc odone 325 mg-5 mg oral tablet adalimumab 20 mg/0.4 mL subcutaneous kit alendronate 70 mg Tab amitriptyline 50 mg Tab atorvastatin 20 mg Tab calcium (as calcium citrate) 200 mg oral tablet doxycycline hycl (more content not included)... Normal [facility] Comment on above: Result Comment: Elec tronically Signed By: JERONIMO Benoit APRN, [place] X\.br\Date and Time Signed: 01/14/24 11:21 EDT\.br\Electronically Co-Signed By: Pati Gustafson\.br\Date and Time Co-Signed: 01/14/24 11:12 EDT Urology Office/Clinic Noteon 11-21-2023 Urology Office/Clinic Note Urology Office/Clinic Note Chief Complaint Follow up to [facility] consult on 10/20/23 HPI Staff f/u to Hospital Consult done 10/20/23 by PRW due to testicular pain. Pt has not been seen in our office before (Verified on DA) DX: Acute UTI, Epididymitis & BPH PVR >150ml while @ [facility]. Pt refused catheter. +C&S 10/19/23 >100k E Coli Tx'd w/IV abx. DC'd home w/ Doxy 100mg BID x2m. CT ap wo 10/19/23 Scrotal US 10/19/23 *Rt acute epididymitis & small to moderate hydrocele. Also started on Dutasteride 0.5mg qd at that time. (Denial from insurance is scanned into chart) Hx of DM. Last A1C 10/20/23 5.9 Last PSA (& only on Clinisync) 01/18/21 3.56. Pt unable to give urine sample today. Dysuria: denies pain and burning Incomplete bladder emptying: denies Hematuria: denies visible blood Frequency: denies Urgency: denies Nocturia: denies Stream: denies hesitancy Leaking: denies Post void dripping: denies Wearing pads/ Depends: denies Urge incontinence: denies Stress incontinence: denies Incontinence without Sensory Awareness: denies Abdominal pain: denies Flank pain: denies Sexual complaints: _ History of Present Illness I have reviewed and verified the staff HPI to be accurate for this encounter. Portions of this record may have been created with voice recognition artificial intelligence software, specifically [employer], [employer] and or [employer]. Substitutions may have occurred due to the inherent limitations of voice recognition and artificial intelligence software. Review of Systems PHQ Score Initial Depression Screen Score: 0 SCORE Physical Exam Vitals & Measurements T: 36 ?C(Temporal Artery) HR: 64(Peripheral) RR: 18 BP: 130/68 HT: 65 in HT: 165 cm WT: 77 kg WT: 169.4 lb BMI: 28.28 General: Well developed, well nourished, in no acute distress. In office today with his Genitourinary: mild right sided scrotal swelling noted, firm and tender right epididymis. No perineal pain to palpation. Flank Pain: none. Bladder: nonpalpable. Penis: normal shaft, normal glans Assessment/Plan Completed review of external ER note, imaging, labs 1. Epididymitis (N45.1: Epididymitis) Seen in consult by PRW at [facility] on 10/20/2023 due to right testicular pain. Treated with IV Rocephin and discharged home with doxycycline 100 mg twice daily x 2 months. Scrotal ultrasound 10/19/2023 with right acute epididymitis and small to moderate hydrocele At this point, patient has been on doxycycline x 1 month, which she is tolerating well without side effects. However, his right-sided scrotal pain has worsened and become more consistent than previously. Given worsening of symptoms, will discontinue use of doxycycline. Start Bactrim DS twice daily x 6 weeks for treatment of epididymitis/underly ing prostatitis. Most recent creatinine 1.17, creatinine clearance calculated at 58 We discussed side effects. Recommend use of probiotic, eating yogurt during antibiotic course. We discussed use of anti-inflammatory agents such as ibuprofen at least twice daily for the next 2 weeks to decrease inflammation. Scrotal support. ER for any associated fever, severe pain or nausea vomiting. -Follow-up in 8 weeks for reevaluation Ordered: sulfamethoxazole-tri methoprim, 1 tab(s), Oral, BID for 6 week(s), 84 sponge(s), Refill(s) 0, [id number], 165, cm, 11/21/23 15:37:00 EDT, Height/Length Dosing, 77, kg, 11/21/23 15:37:00 EDT, Weight Dosing 2. BPH (benign prostatic hyperplasia) (N40.0: Benign prostatic hyperplasia without lower urinary tract symptoms) Patient declined to fill out IPSS today. However, he denies frequency, urgency, any type of stream symptoms. Pt is on prazosin 4 mg QD managed by his PCP. Patient states that he does not know what this medication is for, denies any side effects, states he has never been off of it for a period of time to know whether his urinary symptoms are worse without it. We discussed male urologic anatomy including the prostate and how this is likely contributing to his urinary symptoms/prostatitis /epididymitis. We discussed how potential prostate obstruction affects long-term bladder health and compliance. We discussed alpha-ayana medications to help with urinary symptoms, possible side effects. I did advise patient that these medications do not protect the bladder while alleviating some urinary symptoms. In order to assess degree of bladder outlet obstruction and bladder health, discussed further evaluation with cystoscopy. Pt declines at this time. At the time of his ER visit, PRW started him on dutasteride. However, this was denied by insurance company. Will send finasteride 5 mg daily today. Discussed side effects. -Cont prazosin, start finasteride. -f/u 6 mos for reeval. Ordered: finasteride, 5 mg = 1 tab(s), Oral, Daily, # 30 tab(s), Refills(s) 11, Pharmacy: [facility] #[id number], 165, cm, 11/21/23 15:37:00 EDT, Height/Length Dosing, 77, kg, 11/21/23 15:37:00 EDT, (more content not included)... [facility] Comment on above: Result Comment: Elec tronically Signed By: JERONIMO Benoit APRN, Usha Bolton\.br\Date and Time Signed: 11/21/23 16:24 EDT Insurance Correspondence Off iceon 10-29-2023 Insurance Correspondence Office [id number]# 1.00TIFF [facility] Consultation Noteon 10-28-19 Consultation Note [id number]# 1.00TIFF [facility] Lab Reportson 10-28-2023 Lab Reports [id number] #1.00TIFF [facility] Lab Reports [id number] #1.00TIFF [facility] Pre-Certification Formon Pre-Certification Form [id number]# 1.00TIFF [facility] 36on 07-29-2023 36 Please let him know [...] with his hx of falls. Thanks! Normal [facility] Telephoneon 07-29-2023 Telephone [id number] Deondre Lr Franci 1955 [facility] Provider Department Center 07/29/[address] No family history on file Normal [facility] Office Visiton 07-18-2023 Follow-up visit [id number] Deondre Lr Franci 1955 [facility] Provider Department Center 07/18/2023 [facility] No family history on file Level of Service:70187 [place] OFFICE/OUTPATIENT ESTABLISHED MOD MDM 30 MIN Normal [facility] CT head/brain wo [facility] 12-12 CT head/brain [place] [facility] [place] [address] CT Scan Report Signed Patient: Deondre Lr MR#: [id number] 7 : 1955 Acct:[id number] Age/Sex: 67 / M ADM Date: 12/12/22 Loc: CT Room: Type: [facility] Attending Dr: Berta Hernandez APRN, [facility] Copies to: Berta Hernandez APRN, LAURA Ordering Provider: Berta Hernandez APRN, CNP Date [...] Debby Ray M.D.12/12/2022 3:54 PM Dictation Location: [place] [address] Transcribed By: [facility] 12/12/22 1554 Dictated By: Debby Ray II, MD 12/12/22 1551 Signed By: 12/12/22 1554 [facility] CULTURE URINEon 10-21-2022 CULTURE URINE Isolate 1 [...] F Levofloxacin 0.25 S F Normal [facility] Comment on above: Performed By: #### U RCX ####[facility] [id number] [place] [address]Dr. Olga So CBC AUTO DIFFon 10-19-2022 BASO # 0.0 103/ul Normal 0.0-0.1 [facility] Comment on above: Performed By: #### C LORRAINE PURVIS, TSH #### [facility] [address] [place] [address] Dr. Olga So Basophils/100 WBC (Bld) 0.6 % Normal 0.2-2.0 [facility] Comment on above: Performed By: #### C ANDREA PURVISTRGEMMA, TSH #### [facility] [address] [address] [address] Olga So EO # 0.2 103/ul Normal 0.0-0.7 [facility] Comment on above: Performed By: #### C ANDREA PURVISTRGEMMA, TSH #### [facility] [address] [address] [address] Olga So Eosinophils/100 WBC (Bld) 3.7 % Normal 0.9-7.0 [facility] Comment on above: Performed By: #### C HYUN HSTROPN, TSH #### [facility] [address] [address] [address] Olga So Erythrocyte distribution width (RBC) [Ratio] 13.0 % Normal 11.0-15.0 [facility] Comment on above: Performed By: #### C HYUN HSTROPN, TSH #### [facility] [address] [place] [address] Dr. Olga So Hematocrit (Bld) [Volume fraction] 28.8 % Critically low 42.0-54.0 [facility] Comment on above: Performed By: #### C HYUN HSTROPN, TSH #### [facility] [address] [place] [address] Dr. Olga So Hemoglobin (Bld) [Mass/Vol] 9.3 g/dL Critically low 14.0-18.0 [facility] Comment on above: Performed By: #### C HYUN HSTROPN, TSH #### [facility] [address] [place] [address] Dr. Olga So IG # 0.02 10e3/ul Normal 0.00-0.03 [facility] Comment on above: Performed By: #### C HYUN HSTROPN, TSH #### [facility] [address] [place] [address] Dr. Olga So IG % 0.3 % Normal 0.0-0.5 [facility] Comment on above: Performed By: #### C HYUN HSTROPN, TSH #### [facility] [address] [place] [address] Dr. Olga So LYMPH # 2.2 103/ul Normal 1.2-3.8 [facility] Comment on above: Performed By: #### C HYUN HSTROPN, TSH #### [facility] [address] [place] [address] Dr. Olga So Lymphocytes/100 WBC (Bld) 33.8 % Normal 20.5-60.0 [facility] Comment on above: Performed By: #### C HYUN HSTROPN, TSH #### [facility] [address] [place] [address] Dr. Olga So MANUAL DIFF REQ NO Normal [facility] Comment on above: Performed By: #### C HYUN HSTROPN, TSH #### [facility] [address] [place] [address] Dr. Olga So MCH (RBC) [Entitic mass] 30.4 pg Normal 25.9-34.0 [facility] Comment on above: Performed By: #### C HYUN, HSTROPN, TSH #### [facility] [address] [place] [address] Dr. Olga So MCHC (RBC) [Mass/Vol] 32.3 g/dL Normal 29.9-35.2 [facility] Comment on above: Performed By: #### C MP, HSTROPN, TSH #### [facility] [address] [place] [address] Dr. Olga So MCV (RBC) [Entitic vol] 94.1 fL Critically high 80.0-94.0 [facility] Comment on above: Performed By: #### C MP, HSTROPN, TSH #### [facility] [address] [place] [address] Dr. Olga So MONO # 0.5 103/ul Normal 0.3-0.8 [facility] Comment on above: Performed By: #### C MP, HSTROPN, TSH #### [facility] [address] [place] [address] Dr. Olga So Monocytes/100 WBC (Bld) 7.1 % Normal 1.7-12.0 [facility] Comment on above: Performed By: #### C MP, HSTROPN, TSH #### [facility] [address] [place] [address] Dr. Olga So NEUT # 3.5 103/ul Normal 1.4-6.5 [facility] Comment on above: Performed By: #### C MP, HSTROPN, TSH #### [facility] [address] [place] [address] Dr. Olga So Neutrophils/100 WBC (Bld) 54.5 % Normal 43.0-75.0 [facility] Comment on above: Performed By: #### C MP, HSTROPN, TSH #### [facility] [address] [place] [address] Dr. Olga So Platelet mean volume (Bld) [Entitic vol] 9.3 fL Critically low 9.5-13.5 [facility] Comment on above: Performed By: #### C MP, HSTROPN, TSH #### [facility] [address] [place], [place] [id number] Dr. Olga So PLT 276 103/ul Normal 150-450 [facility] Comment on above: Performed By: #### C LORRAINE PURVIS, TSH #### [facility] [address] [address] [address] Olga So RBC 3.06 106/ul Critically low 4.70-6.10 [facility] Comment on above: Performed By: #### C LORRAINE PURVIS, TSH #### [facility] [address] [address] [address] Olga So WBC 6.5 103/ul Normal 4.0-11.0 [facility] Comment on above: Performed By: #### C LORRAINE PURVIS, TSH #### [facility] [address] [place] [address] Dr. Olga So POINT OF CARE GLUCOSEon 09-25 Glucose [Mass/Vol] 143 mg/dL Critically high 74-106 [facility] Comment on above: Performed By: #### P OCGLUC #### [facility] [address] [place] [address] Dr. Olga So Glucose [Mass/Vol] 156 mg/dL Critically high 74-106 [facility] Comment on above: Performed By: #### P OCGLUC #### [facility] [address] [place] [address] Dr. Olga So PROF 14(COMP METB)on 023 Albumin [Mass/Vol] 2.9 g/dL Critically low 3.4-5.0 [facility] Comment on above: Performed By: #### P OCGLUC #### [facility] [address] [place] [address] Dr. Olga So Albumin/Globulin [Mass ratio] 0.6 {ratio} Normal [facility] Comment on above: Performed By: #### P OCGLUC #### [facility] [address] [place] [address] Dr. Olga oS ALP [Catalytic activity/Vol] 155 U/L Critically high 46-116 [facility] Comment on above: Performed By: #### P OCGLUC #### [facility] [address] [address] [address] Olga So ALT [Catalytic activity/Vol] 23 U/L Normal 16-63 [facility] Comment on above: Performed By: #### P OCGLUC #### [facility] [address] [address] [address] Olga So Anion gap [Moles/Vol] 12.4 mmol/L Normal [facility] Comment on above: Performed By: #### P OCGLUC #### [facility] [address] [address] [address] Olga So AST [Catalytic activity/Vol] 19 U/L Normal 15-37 [facility] Comment on above: Performed By: #### P OCGLUC #### [facility] [address] [address] [address] Olga So Calcium [Mass/Vol] 8.5 mg/dL Normal 8.5-10.1 [facility] Comment on above: Performed By: #### P OCGLUC #### [facility] [address] [address] [address] Olga So Chloride [Moles/Vol] 104 mmol/L Normal 98-107 [facility] Comment on above: Performed By: #### P OCGLUC #### [facility] [address] [address] [address] Olga So CO2 [Moles/Vol] 27.3 mmol/L Normal 21.0-32.0 [facility] Comment on above: Performed By: #### P OCGLUC #### [facility] [address] [address] [address] Olga So Creatinine [Mass/Vol] 1.13 mg/dL Normal 0.70-1.30 [facility] Comment on above: Performed By: #### P OCGLUC #### [facility] [address] [address] [address] Olga So EGFR-AF TAIWANESE >60 Normal >=60 [facility] Comment on above: Performed By: #### P OCGLUC #### [facility] [address] [address] [address] Olga So EGFR-NON AF TAIWANESE >60 Normal >=60 [facility] Comment on above: Performed By: #### P OCGLUC #### [facility] [address] [address] [address] Olga So Globulin (S) [Mass/Vol] 4.7 g/dL Normal [facility] Comment on above: Performed By: #### P OCGLUC #### [facility] [address] [address] [address] Olga So Glucose [Mass/Vol] 147 mg/dL Critically high 74-106 [facility] Comment on above: Performed By: #### P OCGLUC #### [facility] [address] [address] [address] Olga So Potassium [Moles/Vol] 4.7 mmol/L Normal 3.5-5.1 [facility] Comment on above: Performed By: #### P OCGLUC #### [facility] [address] [place] [address] Dr. Olga So Protein [Mass/Vol] 7.6 g/dL Normal 6.4-8.2 [facility] Comment on above: Performed By: #### P OCGLUC #### [facility] [address] [place] [address] Dr. Olga So Sodium [Moles/Vol] 139 mmol/L Normal 136-145 [facility] Comment on above: Performed By: #### P OCGLUC #### [facility] [address] [address] [address] Olga So TBIL <0.1 Critically low 0.2-1.0 [facility] Comment on above: Performed By: #### P OCGLUC #### [facility] [address] [address] [address] Olga So Urea nitrogen [Mass/Vol] 16.0 mg/dL Normal 7.0-18.0 [facility] Comment on above: Performed By: #### P OCGLUC #### [facility] [address] [address] [address] Olga So Urea nitrogen/Creatinine [Mass ratio] 14.2 mg/mg Normal [facility] Comment on above: Performed By: #### P OCGLUC #### [facility] [id number] Olga So ECHOCARDIO M/2D COMPLETEon 0 10-18-2022 ECHOCARDIO M/2D COMPLETE Patient: DEONDRE LR Exam Date: 10/18/2022 : 1955 Gender:M Ordering : SHAIKH Uyen VARGAS . Admission #: [id number] Family : DR MIKE YUAN M.D. Order #: [id number] CLICK HERE TO VIEW EXAM ECHOCARDIOGRAM REPORT [...] Left Atrium LA Volume Index (2D A2C): 54451 mm3 Left Atrium Systolic Dimension: 4.30 cm [...] M.D. on 10/19/2022 at 10:43 Normal [facility] POINT OF CARE GLUCOSEon 09-25 Glucose [Mass/Vol] 169 mg/dL Critically high 74-106 [facility] Comment on above: Performed By: #### P OCGLUC #### [facility] [address] [address] [address] Olga So Glucose [Mass/Vol] 117 mg/dL Critically high 74-106 [facility] Comment on above: Performed By: #### P OCGLUC #### [facility] [address] [address] [address] Olga So Glucose [Mass/Vol] 162 mg/dL Critically high -106 [facility] Comment on above: Performed By: #### C MP, HSTROPN, TSH #### [facility] [address] [address] [address] Olga So Glucose [Mass/Vol] 109 mg/dL Critically high 74-106 [facility] Comment on above: Performed By: #### P OCGLUC #### [facility] [address] [address] [address] Olga So Glucose [Mass/Vol] 187 mg/dL Critically high 74-106 [facility] Comment on above: Performed By: #### P OCGLUC #### [facility] [address] [address] [address] Olga So US CAROTID ART BILon [...] by: RAMONA WAGGONER Date: 2022-10-18 16:24 Normal [facility] XR LSPINE 2_3 VIEWSon 2022 XR [...] RAMONA WAGGONER Date: 2022-10-18 14:35 Normal [facility] XR SHOULDER NOHELIA 2V or >on [...] RAMONA WAGGONER Date: 2022-10-18 12:15 Normal [facility] CBC AUTO DIFFon 10-17-2022 BASO # 0.1 103/ul Normal 0.0-0.1 [facility] Comment on above: Performed By: #### P OCGLUC #### [facility] [address] [place] [address] Dr. Olga So Basophils/100 WBC (Bld) 0.5 % Normal 0.2-2.0 [facility] Comment on above: Performed By: #### P OCGLUC #### [facility] [address] [place] [address] Dr. Olga So EO # 0.3 103/ul Normal 0.0-0.7 [facility] Comment on above: Performed By: #### P OCGLUC #### [facility] [address] [place] [address] Dr. Olga So Eosinophils/100 WBC (Bld) 3.0 % Normal 0.9-7.0 [facility] Comment on above: Performed By: #### P OCGLUC #### [facility] [address] [place] [address] Dr. Olga So Erythrocyte distribution width (RBC) [Ratio] 13.3 % Normal 11.0-15.0 [facility] Comment on above: Performed By: #### P OCGLUC #### [facility] [address] [place] [address] Dr. Olga So Hematocrit (Bld) [Volume fraction] 32.6 % Critically low 42.0-54.0 [facility] Comment on above: Performed By: #### P OCGLUC #### [facility] [address] [address] [address] Olga So Hemoglobin (Bld) [Mass/Vol] 10.1 g/dL Critically low 14.0-18.0 [facility] Comment on above: Performed By: #### P OCGLUC #### [facility] [address] [place] [address] Dr. Olga So IG # 0.04 10e3/ul Critically high 0.00-0.03 [facility] Comment on above: Performed By: #### P OCGLUC #### [facility] [address] [place] [address] Dr. Olga So IG % 0.4 % Normal 0.0-0.5 [facility] Comment on above: Performed By: #### P OCGLUC #### [facility] [address] [place] [address] Dr. Olga So LYMPH # 2.5 103/ul Normal 1.2-3.8 [facility] Comment on above: Performed By: #### P OCGLUC #### [facility] [facility] [address] [place] [address] Dr. Olga So Lymphocytes/100 WBC (Bld) 24.3 % Normal 20.5-60.0 [facility] Comment on above: Performed By: #### P OCGLUC #### [facility] [address] [place] [address] Dr. Olga So MANUAL DIFF REQ NO Normal [facility] Comment on above: Performed By: #### P OCGLUC #### [facility] [address] [place] [address] Dr. Olga So MCH (RBC) [Entitic mass] 30.2 pg Normal 25.9-34.0 [facility] Comment on above: Performed By: #### P OCGLUC #### [facility] [address] [place] [address] Dr. Olga So MCHC (RBC) [Mass/Vol] 31.0 g/dL Normal 29.9-35.2 [facility] Comment on above: Performed By: #### P OCGLUC #### [facility] [address] [address] [address] Olga So MCV (RBC) [Entitic vol] 97.6 fL Critically high 80.0-94.0 [facility] Comment on above: Performed By: #### P OCGLUC #### [facility] [address] [address] [address] Olga So MONO # 0.8 103/ul Normal 0.3-0.8 [facility] Comment on above: Performed By: #### P OCGLUC #### [facility] [address] [place] [address] Dr. Olga So Monocytes/100 WBC (Bld) 7.3 % Normal 1.7-12.0 [facility] Comment on above: Performed By: #### P OCGLUC #### [facility] [address] [place] [address] Dr. Olga So NEUT # 6.7 103/ul Critically high 1.4-6.5 [facility] Comment on above: Performed By: #### P OCGLUC #### [facility] [address] [place] [address] Dr. Olga So Neutrophils/100 WBC (Bld) 64.5 % Normal 43.0-75.0 [facility] Comment on above: Performed By: #### P OCGLUC #### [facility] [address] [place] [address] Dr. Olga So Platelet mean volume (Bld) [Entitic vol] 9.7 fL Normal 9.5-13.5 [facility] Comment on above: Performed By: #### P OCGLUC #### [facility] [address] [place] [address] Dr. Olga So PLT 402 103/ul Normal 150-450 [facility] Comment on above: Performed By: #### P OCGLUC #### [facility] [address] [place] [address] Dr. Olga So RBC 3.34 106/ul Critically low 4.70-6.10 [facility] Comment on above: Performed By: #### P OCGLUC #### [facility] [address] [address] [address] Olga So WBC 10.4 103/ul Normal 4.0-11.0 [facility] Comment on above: Performed By: #### P OCGLUC #### [facility] [address] [address] [address] HEAD WO CONon [...] PANDA GURROLA Date: 2022-10-17 19:22 Normal [facility] CULTURE BLOODon 10-17-2022 Microscopic examination of blood, culture Culture Observations: NO GROWTH AT 5 DAYS. Normal [facility] Comment on above: Performed By: #### B LDCX2 ####[facility] [id number] [address]Dr. Olga So Microscopic examination of blood, culture Culture Observations: NO GROWTH AT 5 DAYS. Normal [facility] Comment on above: Performed By: #### B LDCX1 ####[facility] [id number] [id number]. Olga So ER URINE PROFILEon 3 Bilirubin Ql (U) Negative Normal NEGATIVE [facility] Comment on above: Performed By: #### U MICRO, ERUR #### [facility] [address] [address] [address] Olga So Clarity (U) CLEAR Normal CLEAR [facility] Comment on above: Performed By: #### U MICRO, ERUR #### [facility] [address] [address] [address] Olga So Color (U) LT. YELLOW Normal YELLOW [facility] Comment on above: Performed By: #### U MICRO, ERUR #### [facility] [address] [address] [address] Olga MARRUFOAHD A micrscopic examination will be performed if indicated. Normal [facility] Comment on above: Performed By: #### U MICRO, ERUR #### [facility] [address] [address] [address] Olga So Glucose Ql (U) Negative Normal NEGATIVE The [facility] Comment on above: Performed By: #### U MICRO, ERUR #### [facility] [address] [place] [address] Dr. Olga So Hemoglobin Ql (U) Negative Normal NEGATIVE The [facility] Comment on above: Performed By: #### U MICRO, ERUR #### [facility] [address] [address] [address] Olga So Ketones Ql (U) Negative Normal NEGATIVE The [facility] Comment on above: Performed By: #### U MICRO, ERUR #### [facility] [address] [place] [address] Dr. Olga So LEUKOCYTES SMALL Abnormal NEGATIVE [facility] Comment on above: Performed By: #### U MICRO, ERUR #### [facility] [address] [address] [address] Olga So Nitrite Ql (U) Positive Abnormal NEGATIVE The [facility] Comment on above: Performed By: #### U MICRO, ERUR #### [facility] [address] [address] [address] Olga So pH (U) 5.5 [pH] Normal 5-9 [facility] Comment on above: Performed By: #### U MICRO, ERUR #### [facility] [address] [place] [address] Dr. Olga So SPEC GRAVITY 1.020 Normal 1.005-<=1.02 5 [facility] Comment on above: Performed By: #### U MICRO, ERUR #### [facility] [address] [address] [address] Olga So UA PROTEIN Negative Normal NEGATIVE/ TRACE [facility] Comment on above: Performed By: #### U MICRO, ERUR #### [facility] [address] [address] [address] Olga So UR MICRO IND INDICATED Normal [facility] Comment on above: Performed By: #### U MICRO, ERUR #### [facility] [address] [address] [address] Olga So Urobilinogen Qn (U) 0.2 {Judson'U}/dL Normal 0.2 - 1. 0 [facility] Comment on above: Performed By: #### U MICRO, ERUR #### [facility] [address] [place] [address] Dr. Olga So LACTATE/LACTIC ACIDon 2022 Lactate [Moles/Vol] 0.8 mmol/L Normal 0.4-2.0 [facility] Comment on above: Performed By: #### L ACT ####[facility] [id number] [address]Dr. Olga So PROF 14(COMP METB)on 023 Albumin [Mass/Vol] 3.7 g/dL Normal 3.4-5.0 [facility] Comment on above: Performed By: #### C MP HSTROPN, TSH #### [facility] [address] [address] [address] Olga So Albumin/Globulin [Mass ratio] 0.7 {ratio} Normal [facility] Comment on above: Performed By: #### C HYUN HSTROPN, TSH #### [facility] [address] [address] [address] Olga So ALP [Catalytic activity/Vol] 160 U/L Critically high 46-116 [facility] Comment on above: Performed By: #### C HYUN, HSTROPN, TSH #### [facility] [address] [address] [address] Olga So ALT [Catalytic activity/Vol] 18 U/L Normal 16-63 [facility] Comment on above: Performed By: #### C MP, HSTROPN, TSH #### [facility] [address] [address] [address] Olga So Anion gap [Moles/Vol] 13.2 mmol/L Normal [facility] Comment on above: Performed By: #### C MP, HSTROPN, TSH #### [facility] [address] [place] [address] Dr. Olga So AST [Catalytic activity/Vol] 17 U/L Normal 15-37 [facility] Comment on above: Performed By: #### C MP, HSTROPN, TSH #### [facility] [address] [place] [address] Dr. Olga So Bilirubin [Mass/Vol] 0.2 mg/dL Normal 0.2-1.0 [facility] Comment on above: Performed By: #### C MP, HSTROPN, TSH #### [facility] [address] [address] [address] Olga So Calcium [Mass/Vol] 8.2 mg/dL Critically low 8.5-10.1 [facility] Comment on above: Performed By: #### C MP, HSTROPN, TSH #### [facility] [address] [place] [address] Dr. Olga So Chloride [Moles/Vol] 106 mmol/L Normal 98-107 [facility] Comment on above: Performed By: #### C MP, HSTROPN, TSH #### [facility] [address] [place] [address] Dr. Olga So CO2 [Moles/Vol] 26.3 mmol/L Normal 21.0-32.0 [facility] Comment on above: Performed By: #### C MP, HSTROPN, TSH #### [facility] [address] [place] [address] Dr. Olga So Creatinine [Mass/Vol] 2.30 mg/dL Critically high 0.70-1.30 [facility] Comment on above: Performed By: #### C MP, HSTROPN, TSH #### [facility] [address] [address] [address] Olga So EGFR-AF TAIWANESE 35 mL/min/1.73m2 Critically low >=60 [facility] Comment on above: Performed By: #### C MP, HSTROPN, TSH #### [facility] [address] [address] [address] Olga So EGFR-NON AF TAIWANESE 29 mL/min/1.73m2 Critically low >=60 [facility] Comment on above: Performed By: #### C MP, HSTROPN, TSH #### [facility] [address] [place] [address] Dr. Olga So Globulin (S) [Mass/Vol] 5.2 g/dL Normal [facility] Comment on above: Performed By: #### C MP, HSTROPN, TSH #### [facility] [address] [address] [address] Olga So Glucose [Mass/Vol] 124 mg/dL Critically high 74-106 [facility] Comment on above: Performed By: #### C MP, HSTROPN, TSH #### [facility] [address] [place] [address] Dr. Olga So Potassium [Moles/Vol] 4.5 mmol/L Normal 3.5-5.1 [facility] Comment on above: Performed By: #### C MP, HSTROPN, TSH #### [facility] [address] [address] [address] Olga So Protein [Mass/Vol] 8.9 g/dL Critically high 6.4-8.2 [facility] Comment on above: Performed By: #### C MP, HSTROPN, TSH #### [facility] [address] [address] [address] Olga So Sodium [Moles/Vol] 141 mmol/L Normal 136-145 [facility] Comment on above: Performed By: #### C MP, HSTROPN, TSH #### [facility] [address] [address] [address] Olga So Urea nitrogen [Mass/Vol] 52.0 mg/dL Critically high 7.0-18.0 [facility] Comment on above: Performed By: #### C MP, HSTROPN, TSH #### [facility] [address] [address] [address] Olga So Urea nitrogen/Creatinine [Mass ratio] 22.6 mg/mg Normal [facility] Comment on above: Performed By: #### C MP, HSTROPN, TSH #### [facility] [address] [place] [address] Dr. Olga So PROTIMEon 10-17-2022 INR Coag (PPP) [Relative time] 0.95 {INR} Normal [facility] Comment on above: Performed By: #### P TT, PT ####[facility] [id number] [address]Dr. Olga So INR GUIDELINES SEE BELOW Normal [facility] Comment on above: Result Comment: DEBBIE RED INR: 2.0 - 3.0 CONDITIONS NOT LISTED BELOW 2.5 - 3.5 FOR PROSTHETIC HEART VALVE REPLACEMENT 2.5 - 3.5 RECURRENT THROMBOSIS Performed By: #### P TT, PT ####[facility] [id number] [address]Dr. Olga So PT Coag (PPP) [Time] 10.1 s Normal 9.0-11.6 [facility] Comment on above: Performed By: #### P TT, PT ####[facility] [address] [address]Dr. Olga So PTTon 10-17-2022 aPTT Coag (Bld) [Time] 29.3 s Normal 22.3-36.2 Th [facility] Comment on above: Performed By: #### P TT, PT #### [facility] [address] [address] [address] Olga So TROPONIN, HIGH SENSITIVITYon 10-17-2022 HSTROP 5.5 pg/mL Normal 4.0-76.1 [facility] Comment on above: Result Comment: CUT- OFF POINTS HAVE BEEN ESTABLISHED BASED ON THE FOURTH UNIVERSAL DEFINITIONS OF MYOCARDIAL INFARCTION. THE UPPER REFERENCE LIMIT (URL) OF TROPONIN, DEFINED THE 99TH PERCENTILE OF cTnI DISTRIBUTION IN A REFERENCE POPULATION, HAS BEEN CONFIRMED THE DECISION THRESHOLD FOR IN DIAGNOSIS. Performed By: #### C MP, HSTROPN, TSH #### [facility] [address] [place] [address] Dr. Olga So TSHon 10-17-2022 TSH 0.980 uIU/mL Normal 0.358-3.740 [facility] Comment on above: Performed By: #### C MP, HSTROPN, TSH #### [facility] [address] [place] [address] Dr. Olga So URINE MICROSCOPIC ONLYon BACTERIA SMALL Abnormal NONE SEEN [facility] Comment on above: Performed By: #### U MICRO, ERUR #### [facility] [address] [place] [address] Dr. Olga So Bacteria identified Cx Nom (U) INDICATED Normal [facility] Comment on above: Performed By: #### U MICRO, ERUR #### [facility] [address] [place] [address] Dr. Olga So CAST NONE SEEN Normal NONE SEEN [facility] Comment on above: Performed By: #### U MICRO, ERUR #### [facility] [address] [place] [address] Dr. Olga So Crystals LM Nom (Urine sed) NONE SEEN Normal NONE SEEN [facility] Comment on above: Performed By: #### U MICRO, ERUR #### [facility] [address] [place] [address] Dr. Olga So Epithelial cells LM Ql (Urine sed) FEW Abnormal NONE SEEN /RARE [facility] Comment on above: Performed By: #### U MICRO, ERUR #### [facility] [address] [place] [address] Dr. Olga So MUCOUS NONE SEEN Normal NONE SEEN [facility] Comment on above: Performed By: #### U MICRO, ERUR #### [facility] [address] [address] [address] Olga So RBC 2-5 Abnormal 0-2 [facility] Comment on above: Performed By: #### U MICRO, ERUR #### [facility] [address] [address] [address] Olga So WBC 50-75 Abnormal NONE SEEN [facility] Comment on above: Performed By: #### U MICRO, ERUR #### [facility] [address] [address] [address] Olga So XR CHEST 1 Von [...] by: PANDA GURROLA Date: 2022-10-17 19:24 Normal [facility] XR HIPS NOHELIA 3_4V WO PELVISon [...] by: REILLY MARIA Date: 2022-09-24 16:17 Normal [facility] NM STRESS/REST MULTIon 07-05 NM STRESS/REST MULTI Patient: DEONDRE LR Exam Date: 07/05/2022 : 1955 Gender:M Ordering : DR CYDNEY REDMOND M.D. Admission #: [id number] Family : DR MIKE YUAN M.D. Order #: [id number] CLICK HERE TO VIEW EXAM RADIOLOGY REPORT [...] M.D. on 07/05/2022 at 15:05 Normal [facility] CBC AUTO DIFFon 06-22-2022 BASO # 0.1 103/ul Normal 0.0-0.1 [facility] Comment on above: Performed By: #### C HYUN HSTRGEMMA, TSH #### [facility] [address] [address] [address] Olga So Basophils/100 WBC (Bld) 0.6 % Normal 0.2-2.0 [facility] Comment on above: Performed By: #### C HYUN HSATULN, TSH #### [facility] [address] [address] [address] Olga So EO # 0.1 103/ul Normal 0.0-0.7 [facility] Comment on above: Performed By: #### C MP, HSTROPN, TSH #### [facility] [address] [place] [address] Dr. Olga So Eosinophils/100 WBC (Bld) 1.6 % Normal 0.9-7.0 [facility] Comment on above: Performed By: #### C MP, HSTROPN, TSH #### [facility] [address] [place] [address] Dr. Olga So Erythrocyte distribution width (RBC) [Ratio] 12.3 % Normal 11.0-15.0 [facility] Comment on above: Performed By: #### C HYUN, HSTROPN, TSH #### [facility] [address] [place] [address] Dr. Olga So Hematocrit (Bld) [Volume fraction] 33.2 % Critically low 42.0-54.0 [facility] Comment on above: Performed By: #### C HYUN HSTROPN, TSH #### [facility] [address] [place] [address] Dr. Olga So Hemoglobin (Bld) [Mass/Vol] 11.9 g/dL Critically low 14.0-18.0 [facility] Comment on above: Performed By: #### C HYUN HSTROPN, TSH #### [facility] [address] [place] [address] Dr. Olga So IG # 0.03 10e3/ul Normal 0.00-0.03 [facility] Comment on above: Performed By: #### C MP, HSTROPN, TSH #### [facility] [address] [place] [address] Dr. Olga So IG % 0.4 % Normal 0.0-0.5 [facility] Comment on above: Performed By: #### C MP, HSTROPN, TSH #### [facility] [address] [place] [address] Dr. Olga So LYMPH # 2.1 103/ul Normal 1.2-3.8 [facility] Comment on above: Performed By: #### C MP, HSTROPN, TSH #### [facility] [address] [place] [address] Dr. Olga So Lymphocytes/100 WBC (Bld) 26.4 % Normal 20.5-60.0 [facility] Comment on above: Performed By: #### C MP, HSTROPN, TSH #### [facility] [address] [place] [address] Dr. Olga So MANUAL DIFF REQ NO Normal [facility] Comment on above: Performed By: #### C MP, HSTROPN, TSH #### [facility] [address] [place] [address] Dr. Olga So MCH (RBC) [Entitic mass] 32.2 pg Normal 25.9-34.0 [facility] Comment on above: Performed By: #### C MP, HSTROPN, TSH #### [facility] [address] [place] [address] Dr. Olga So MCHC (RBC) [Mass/Vol] 35.8 g/dL Critically high 29.9-35.2 [facility] Comment on above: Performed By: #### C MP, HSTROPN, TSH #### [facility] [address] [place] [address] Dr. Olga So MCV (RBC) [Entitic vol] 90.0 fL Normal 80.0-94.0 [facility] Comment on above: Performed By: #### C MP, HSTROPN, TSH #### [facility] [address] [place] [address] Dr. Olga So MONO # 0.7 103/ul Normal 0.3-0.8 [facility] Comment on above: Performed By: #### C MP, HSTROPN, TSH #### [facility] [address] [place] [address] Dr. Olga So Monocytes/100 WBC (Bld) 8.0 % Normal 1.7-12.0 [facility] Comment on above: Performed By: #### C MP, HSTROPN, TSH #### [facility] [address] [place] [address] Dr. Olga So NEUT # 5.1 103/ul Normal 1.4-6.5 [facility] Comment on above: Performed By: #### C ANDREA PURVISTRGEMMA, TSH #### [facility] [address] [address] [address] Olga So Neutrophils/100 WBC (Bld) 63.0 % Normal 43.0-75.0 [facility] Comment on above: Performed By: #### C HYUN HSTROPN, TSH #### [facility] [address] [address] [address] Olga So Platelet mean volume (Bld) [Entitic vol] 9.6 fL Normal 9.5-13.5 [facility] Comment on above: Performed By: #### C HYUN HSTROPDago, TSH #### [facility] [address] [address] [address] Olga So PLT 229 103/ul Normal 150-450 [facility] Comment on above: Performed By: #### C HYUN HSTROPN, TSH #### [facility] [address] [address] [address] Olga So RBC 3.69 106/ul Critically low 4.70-6.10 [facility] Comment on above: Performed By: #### C HYUN HSTROPN, TSH #### [facility] [address] [address] [address] Olga So WBC 8.1 103/ul Normal 4.0-11.0 [facility] Comment on above: Performed By: #### C HYUN, HSTROPN, TSH #### [facility] [address] [address] [address] Olga So GLYCOHEMOGLOBIN A1Con 2022 ADA RECOMMENDATION SEE BELOW Normal [facility] Comment on above: Result Comment: ADA RECOMMENDED LIMIT 4.0 - 6.0 ADA THERAPEUTIC TARGET < 7.0 ACTION SUGGESTED > 7.0 Performed By: #### A 1C ####[facility] [address] [address]Dr. Olga So Glucose [Mass/Vol] 131 mg/dL Normal [facility] Comment on above: Performed By: #### A 1C ####[facility] [address] [address]Dr. Olga So HbA1c (Bld) [Mass fraction] 6.2 % Normal 4.5-6.2 [facility] Comment on above: Performed By: #### A 1C ####[facility] [address] [address]Dr. Olga So MRSA NARES #1on 06-22-2022 MRSA NARES #1 Culture Observations: No growth of MRSA at 48 hours. Normal [facility] Comment on above: Performed By: #### M RSAN1 ####[facility] [address] [address]Dr. Olga So PROF 14(COMP METB)on 023 Albumin [Mass/Vol] 4.0 g/dL Normal 3.4-5.0 [facility] Comment on above: Performed By: #### P OCGLUC #### [facility] [address] [place] [address] Dr. Olga So Albumin/Globulin [Mass ratio] 1.0 {ratio} Normal [facility] Comment on above: Performed By: #### P OCGLUC #### [facility] [address] [place] [address] Dr. Olga So ALP [Catalytic activity/Vol] 166 U/L Critically high 46-116 [facility] Comment on above: Performed By: #### P OCGLUC #### [facility] [address] [place] [address] Dr. Olga So ALT [Catalytic activity/Vol] 24 U/L Normal 16-63 [facility] Comment on above: Performed By: #### P OCGLUC #### [facility] [address] [place] [address] Dr. Olga So Anion gap [Moles/Vol] 13.2 mmol/L Normal [facility] Comment on above: Performed By: #### P OCGLUC #### [facility] [address] [place] [address] Dr. Olga So AST [Catalytic activity/Vol] 17 U/L Normal 15-37 [facility] Comment on above: Performed By: #### P OCGLUC #### [facility] [address] [address] [address] Olga So Bilirubin [Mass/Vol] 0.3 mg/dL Normal 0.2-1.0 [facility] Comment on above: Performed By: #### P OCGLUC #### [facility] [address] [address] [address] Olga So Calcium [Mass/Vol] 9.0 mg/dL Normal 8.5-10.1 [facility] Comment on above: Performed By: #### P OCGLUC #### [facility] [address] [place] [address] Dr. Olga So Chloride [Moles/Vol] 102 mmol/L Normal 98-107 [facility] Comment on above: Performed By: #### P OCGLUC #### [facility] [address] [address] [address] Olga So CO2 [Moles/Vol] 29.0 mmol/L Normal 21.0-32.0 [facility] Comment on above: Performed By: #### P OCGLUC #### [facility] [address] [place] [address] Dr. Olga So Creatinine [Mass/Vol] 1.39 mg/dL Critically high 0.70-1.30 [facility] Comment on above: Performed By: #### P OCGLUC #### [facility] [address] [place] [address] Dr. Olga So EGFR-AF TAIWANESE >60 Normal >=60 [facility] Comment on above: Performed By: #### P OCGLUC #### [facility] [address] [place] [address] Dr. Olga So EGFR-NON AF TAIWANESE 51 mL/min/1.73m2 Critically low >=60 [facility] Comment on above: Performed By: #### P OCGLUC #### [facility] [address] [place] [address] Dr. Olga So Globulin (S) [Mass/Vol] 4.0 g/dL Normal [facility] Comment on above: Performed By: #### P OCGLUC #### [facility] [address] [address] [address] Olga So Glucose [Mass/Vol] 136 mg/dL Critically high 74-106 [facility] Comment on above: Performed By: #### P OCGLUC #### [facility] [address] [address] [address] Olga So Potassium [Moles/Vol] 4.2 mmol/L Normal 3.5-5.1 [facility] Comment on above: Performed By: #### P OCGLUC #### [facility] [address] [place] [address] Dr. Olga So Protein [Mass/Vol] 8.0 g/dL Normal 6.4-8.2 [facility] Comment on above: Performed By: #### P OCGLUC #### [facility] [address] [address] [address] Olga So Sodium [Moles/Vol] 140 mmol/L Normal 136-145 [facility] Comment on above: Performed By: #### P OCGLUC #### [facility] [address] [place] [address] Dr. Olga So Urea nitrogen [Mass/Vol] 30.0 mg/dL Critically high 7.0-18.0 [facility] Comment on above: Performed By: #### P OCGLUC #### [facility] [address] [place] [address] Dr. Olga So Urea nitrogen/Creatinine [Mass ratio] 21.6 mg/mg Normal [facility] Comment on above: Performed By: #### P OCGLUC #### [facility] [address] [place] [address] Dr. Olga So POINT OF CARE GLUCOSEon Glucose [Mass/Vol] 114 mg/dL Critically high 74-106 [facility] Comment on above: Performed By: #### P OCGLUC #### [facility] [address] [place] [address] SHOULDER LT WO [...] by: REILLY MARIA Date: 2022-04-23 19:53 Normal [facility] MRI SHOULDER RT WO CONon MRI [...] REILLY MARIA Date: 2022-04-23 20:10 Normal [facility] POINT OF CARE GLUCOSEon 01-26 Glucose [Mass/Vol] 129 mg/dL Critically high 74-106 T [facility] Comment on above: Performed By: #### P OCGLUC ####[facility] [address] [place], [place] [address]AuDr. Olga So Covid-19 PCR ([facility])on 01-25 SARS-CoV-2 (COVID-19) RNA JULISSA+probe Ql (Unsp spec) Not detected Normal NOT DETECTED [facility] Comment on above: Result Comment: This test is not yet approved or cleared by the [place] FDA. When there are no FDA-approved or cleared tests available, and other criteria are met, FDA can make tests available under an emergency access mechanism called an Emergency Use Authorization (EUA). The EUA for this test is supported by the [place] of Health and Human Service's (HHS's) declaration [...] SARS-CoV-2. Performed By: #### P OCGLUC #### [facility] [address] [place], [place] [address] Dr. Olga So XR RIBS LEFT INCLUDE [...] by: Bret Bae 12/06/21 Final result Normal [facility] Minimally displaced fracture of the proximal left humerus [facility] EXAMINATION: XRAY VIEWS OF [...] airspace infiltrate. No pneumothorax or pleural effusion. [facility] Bret Bae - 12/06/2021 [...] displaced fracture of the proximal left humerus [employer] Phone: [employer] Phone: Radiology Study observation (narrative) [employer] Phone: XR SHOULDER LEFT (MIN 2 VIEW [...] by: Bret Bae 12/06/21 Final result Normal [facility] Minimally displaced fracture of the proximal humerus at the level of the distal portion of the humeral prosthesis. [facility] EXAMINATION: XRAY VIEWS OF THE LEFT SHOULDER 12/06/2021 2:13 pm COMPARISON: None. HISTORY: ORDERING SYSTEM PROVIDED HISTORY: pain TECHNOLOGIST PROVIDED HISTORY: pain FINDINGS: The patient has undergone left shoulder arthroplasty. There is a minimally displaced fracture of the proximal humerus at the level of the distal portion of the humerus prosthesis. [facility] Bret Bae - 12/06/2021 [...] the distal portion of the humeral prosthesis. [facility] Phone: Radiology Study observation (narrative) [facility] Phone: XR SHOULDER LEFT (MIN 2 VIEW S)Ordered By: Bret Bae on 12-06-2021 [facility] Phone: POINT OF CARE GLUCOSEon 10-25 Glucose [Mass/Vol] 132 mg/dL Critically high 74-106 [facility] Comment on above: Performed By: #### P OCGLUC #### [facility] [address] [address] [address] Olga So Basic Metabolic Panelon - Anion gap [Moles/Vol] 12 mmol/L 9 - 17 mmol/L [facility] Calcium [Mass/Vol] 8.0 mg/dL Low 8.6 - 10. 4 mg/dL [facility] Chloride [Moles/Vol] 107 mmol/L 98 - 10 7 mmol/L [facility] CO2 [Moles/Vol] 22 mmol/L 20 - 31 mmol/L [facility] Creatinine [Mass/Vol] 1.16 mg/dL 0.70 - 1.20 mg/dL [facility] GFR >60 >60 mL/min [facility] GFR Non- >60 >60 mL/min [facility] Glucose [Mass/Vol] 171 mg/dL High 70 - 99 mg/dL [facility] Interpretation and review of laboratory results Abnormal [facility] Potassium [Moles/Vol] 4.0 mmol/L 3.7 - 5.3 mmol/L [facility] Sodium [Moles/Vol] 141 mmol/L 135 - 144 mmol/L [facility] Urea nitrogen (BldV) [Mass/Vol] 14 mg/dL 8 - 23 mg/dL [facility] Urea nitrogen/Creatinine (Bld) [Mass ratio] 12 [facility] Basic Metabolic Profon 09-06 (cont.) Normal [facility] Comment on above: Result Comment: Aver age GFR for 60-69 years old: 85 mL/min/1.73sq m Chronic Kidney Disease: <60 mL/min/1.73sq m Kidney failure: <15 mL/min/1.73sq m eGFR calculated using average adult body mass. Additional eGFR calculator available at: http://www.[employer]/multiple_crcl_2012.htm Performed By: #### Renee PURVIS, KALIN #### [facility] [address] [place] [address] Manager Generation: Ramona Hurd MD Anion gap [Moles/Vol] 12 mmol/L Normal - [facility] Comment on above: Performed By: #### Renee PURVIS, KALIN #### [facility] [address] [place] [address] Manager Generation: Ramona Hurd MD BUN/CRE Ratio 12 Normal - [facility] Comment on above: Performed By: #### B HYUN, HH #### [facility] [address] [place], [place] [id number] Manager Generation: Ramona Hurd MD Calcium [Mass/Vol] 8.0 mg/dL Low 8.6-10.4 [facility] Comment on above: Performed By: #### B MP, HH #### [facility] [address] [place], [place] [phone] Manager Generation: Ramona Hurd MD Chloride [Moles/Vol] 107 mmol/L Normal 98-107 [facility] Comment on above: Performed By: #### B HYUN, HH #### [facility] [address] [place], [place] [phone] Manager Generation: Ramona Hurd MD CO2 [Moles/Vol] 22 mmol/L Normal 20-31 [facility] Comment on above: Performed By: #### B HYUN, HH #### [facility] [address] [place], [place] [phone] Manager Generation: Ramona Hurd MD Creatinine [Mass/Vol] 1.16 mg/dL Normal 0.70-1.20 [facility] Comment on above: Performed By: #### B HYUN, HH #### [facility] [address] [place], [place] [phone] Manager Generation: Ramona Hurd MD GFR, Amer >60 Normal >60 [facility] Comment on above: Performed By: #### B MP, HH #### [facility] [address] [place], [place] [phone] Manager Generation: Ramona Hurd MD GFR,non Amer >60 Normal >60 [facility] Comment on above: Performed By: #### B MP, HH #### [facility] [address] [place], [place] [phone] Manager Generation: Ramona Hurd MD Glucose [Mass/Vol] 171 mg/dL High 70-99 [facility] Comment on above: Performed By: #### B HYUN, HH #### [facility] [address] [place] [address] Manager Generation: Ramona Hurd MD Potassium [Moles/Vol] 4.0 mmol/L Normal 3.7-5.3 [facility] Comment on above: Performed By: #### B HYUN, HH #### [facility] [address] [place] [address] Manager Generation: Ramona Hurd MD Sodium [Moles/Vol] 141 mmol/L Normal 135-144 [facility] Comment on above: Performed By: #### B HYUN, HH #### [address] [place] [address] Manager Generation: Ramona Hurd MD Staging: Normal [facility] Comment on above: Result Comment: Stag e 1: Some kidney damage normal GFR Stage 2: Mild kidney damage GFR 60-89 Stage 3: Moderate kidney damage GFR 30-59 Stage 4: Severe kidney damage GFR 15-29 Stage 5: Severe kidney damage GFR <15 ESRD - chronic treatment by dialysis or transplant Performed By: #### B HYUN, HH #### [address] [place] [address] Manager Generation: Ramona Hurd MD Urea nitrogen [Mass/Vol] 14 mg/dL Normal 8-23 [facility] Comment on above: Performed By: #### B HYUN, HH #### [address] [place] [address] Manager Generation: Ramona Hurd MD Glucose, Whole Bloodon 09-06 Glucose [Mass/Vol] 172 mg/dL High 74 - 100 mg/dL [facility] Interpretation and review of laboratory results Abnormal [facility] Glucose [Mass/Vol] 156 mg/dL High 74 - 100 mg/dL [facility] Interpretation and review of laboratory results Abnormal [facility] Hemoglobin and Hematocriton 09-06-2021 Hematocrit (Bld) [Volume fraction] 27.9 % Low 40.7 - 50.3 % [facility] Hemoglobin.gastrointes tinal spec 1 Ql (Stl) 8.9 g/dL Low 13.0 - 17.0 g/dL [facility] Interpretation and review of laboratory results Abnormal [facility] Hgb/Hcton 09-06-2021 Hematocrit (Bld) [Volume fraction] 27.9 % Low 40.7-50.3 [facility] Comment on above: Performed By: #### B HYUN, #### [facility] [address] [place] [address] Manager Generation: Ramona Hurd MD Hemoglobin (Bld) [Mass/Vol] 8.9 g/dL Low 13.0-17.0 [facility] Comment on above: Performed By: #### B HYUN, #### [facility] [address] [place] [address] Manager Generation: Ramona Hurd MD Laboratory - Chemistry and C hemistry - challengeon 09-06-2021 GFR/1.73 sq M.predicted MDRD (S/P/Bld) [Vol rate/Area] [facility] Comment on above: Average GFR for 60-6 9 years old: 85 mL/min/1.73sq m Chronic Kidney Disease: <60 mL/min/1.73sq m Kidney failure: <15 mL/min/1.73sq m eGFR calculated using average adult body mass. Additional eGFR calculator available at: http://www.[employer]/multiple_crcl_2012.htm Stage 1: Some kidney damage normal GFR Stage 2: Mild kidney damage GFR 60-89 Stage 3: Moderate kidney damage GFR 30-59 Stage 4: Severe kidney damage GFR 15-29 Stage 5: Severe kidney damage GFR <15 ESRD - chronic treatment by dialysis or transplant VL DUP LOWER EXTREMITY VENOU S RIGHTon 09-06-2021 Tad Mack MD - 09/06/2021 [facility] Vascular Lower Extremities DVT Study Procedure Patient Name GERONIMO Koroma Date of Study 09/06/2021 Date of 1955 Gender Male Age 66 year(s) Race Room Number 0302 Corporate ID [id number] # Patient Acct [id number] # MR # [id number] Health Informatics Instructor Zunilda Morales RVT Interpreting Physician Tad Mack Referring Shmuel Wyatt, Referring Physician Nurse IRAIS-LAURA Practitioner Additional Comments Results were faxed to the floor 09/06/2021 @ 7337. Procedure Type of Study: Veins: Lower Extremities [...] !Phasic! ! ! + --------+------+---- --+ + [employer] Phone: Radiology Study observation (narrative) [employer] Phone: VL DUP LOWER EXTREMITY VENOU S RIGHTOrdered By: Tad Mack on 09-06-2021 [employer] Phone: Glucose, Whole Bloodon 09-05 Glucose [Mass/Vol] 199 mg/dL High 74 - 100 mg/dL [employer] Interpretation and review of laboratory results Abnormal [facility] Glucose [Mass/Vol] 204 mg/dL High 74 - 100 mg/dL [employer] Interpretation and review of laboratory results Abnormal [employer] [facility] Glucose [Mass/Vol] 127 mg/dL High 74 - 100 mg/dL [facility] Interpretation and review of laboratory results Abnormal [facility] XR SHOULDER LEFT 1 VWon 04- XR SHOULDER LEFT 1 VW EXAMINATION: ONE [...] Luc Michele MD 09/05/21 Final result Normal [facility] 1. Postoperative changes related to recent reverse left shoulder arthroplasty hardware placement. 2. Left basilar airspace disease and small left-sided pleural effusion. [facility] CONSOL[facility] EXAMINATION: ONE XRAY VIEW OF [...] airspace disease and small left-sided pleural effusion. [facility] Luc Michele MD - 09/05/2021 [...] airspace disease and small left-sided pleural effusion. [employer] Work Phone: Radiology Study observation (narrative) [employer] Phone: XR SHOULDER LEFT 1 VWOrdered By: Luc Michele on 09-05-2021 [employer] Phone: Glucose, Whole Bloodon 08-22 Glucose [Mass/Vol] 109 mg/dL High 74 - 100 mg/dL [facility] Interpretation and review of laboratory results Abnormal [facility] Hemoglobin A1Con 08-03-2021 Glucose [Mass/Vol] 146 mg/dL Normal [facility] Comment on above: Result Comment: The ADA and AACC recommend providing the estimated average glucose result to permit better patient understanding of their HBA1c result. Performed By: #### G LYHGB #### [address] [place], [place] [phone] Manager Generation: David Ge MD #### CDP, CP #### [facility] [address] [place] [address] [place] [address] Manager Generation: Ramona Hurd MD HbA1c (Bld) [Mass fraction] 6.7 % High 4.0-6.0 [facility] Comment on above: Performed By: #### G LYHGB #### [facility] [address] [place] [address] Manager Generation: David Ge MD #### CDP, CP #### [facility] [address] [place] [address] [place] [address] Manager Generation: Ramona Hurd MD MRSA, DNA, Nasalon 2 MRSA, DNA, Nasal Negative Normal NEG [facility] Comment on above: Result Comment: NEGA TIVE: MRSA DNA not detected by nucleic acid amplification. Results should be used as an adjunct to nosocomial control efforts to identify patients needing enhanced precautions. The test is not intended to identify patients with staphylococcal infections. Results should not be used to guide or monitor treatment for MRSA infections. Performed By: #### M RSANO #### [address] [address] Manager Generation: David Ge MD [facility] [address] [place], [place] [address] [address] Manager Generation: Ramona Hurd MD CBC with Diffon 08-02-2021 Abs. Basophil 0.05 k/uL Normal 0.00-0.20 [facility] Comment on above: Performed By: #### G LYHGB #### [address] [address] Manager Generation: David Ge MD #### CDP, CP #### [facility] [address] [place], [place] [address] [place] [phone] Manager Generation: Ramona Hurd MD Abs.Imm.Granulocyte 0.03 k/uL Normal 0.00-0.30 [facility] Comment on above: Performed By: #### G LYHGB #### [address] [address] Manager Generation: David Ge MD #### CDP, CP #### [facility] [address] [place], [place] [address] [address] Manager Generation: Ramona Hurd MD Abs.Neutrophil (Seg) 4.11 k/uL Normal 1.50-8.10 [facility] Comment on above: Performed By: #### G LYHGB #### [address] [address] Manager Generation: David Ge MD #### CDP, CP #### [address] [place], [place] [phone] Manager Generation: Ramona Hurd MD Basophils/100 WBC (Bld) 1 % Normal 0-2 [facility] Comment on above: Performed By: #### G LYHGB #### [address] [address] Manager Generation: David Ge MD #### CDP, CP #### [address] [place], [place] [phone] Manager Generation: Ramona Hurd MD Eosinophils (Bld) [#/Vol] 0.36 10*3/uL Normal 0.00-0.44 [facility] Comment on above: Performed By: #### G LYHGB #### [address] [address] Manager Generation: David Ge MD #### CDP, CP #### [address] [place], [place] [phone] Manager Generation: Ramona Hurd MD Eosinophils/100 WBC (Bld) 5 % High 1-4 [facility] Comment on above: Performed By: #### G LYHGB #### [address] [address] Manager Generation: David Ge MD #### CDP, CP #### [address] [place] [phone] Manager Generation: Ramona Hurd MD Erythrocyte distribution width (RBC) [Ratio] 12.6 % Normal 11.8-14.4 [facility] Comment on above: Performed By: #### G LYHGB #### [address] [address] Manager Generation: David Ge MD #### CDP, CP #### [address] [place] [address] Manager Generation: Ramona Hurd MD Hematocrit (Bld) [Volume fraction] 37.7 % Low 40.7-50.3 [facility] Comment on above: Performed By: #### G LYHGB #### [address] [place] [address] Manager Generation: David Ge MD #### CDP, CP #### [address] [place], [place] [phone] Manager Generation: Ramona Hurd MD Hemoglobin (Bld) [Mass/Vol] 12.3 g/dL Low 13.0-17.0 [facility] Comment on above: Performed By: #### G LYHGB #### [address] [address] Manager Generation: David Ge MD #### CDP, CP #### [address] [place] [phone] Manager Generation: Ramona Hurd MD Immature granulocytes/100 WBC (Bld) 0 % Normal 0 [facility] Comment on above: Performed By: #### G LYHGB #### [address] [address] Manager Generation: David Ge MD #### CDP, CP #### [address] [place] [phone] Manager Generation: Ramona Hurd MD Lymphocytes (Bld) [#/Vol] 2.33 10*3/uL Normal 1.10-3.70 [facility] Comment on above: Performed By: #### G LYHGB #### [address] [address] Manager Generation: David Ge MD #### CDP, CP #### [address] [place] [phone] Manager Generation: Ramona Hurd MD Lymphocytes/100 WBC (Bld) 31 % Normal 24-43 [facility] Comment on above: Performed By: #### G LYHGB #### [address] [phone] Manager Generation: David Ge MD #### CDP, CP #### [address] [place] [phone] Manager Generation: Ramona Hurd MD MCH (RBC) [Entitic mass] 32.5 pg Normal 25.2-33.5 [facility] Comment on above: Performed By: #### G LYHGB #### [address] [address] Manager Generation: David Ge MD #### CDP, CP #### [address] [place] [phone] Manager Generation: Ramona Hurd MD MCHC (RBC) [Mass/Vol] 32.6 g/dL Normal 28.4-34.8 [facility] Comment on above: Performed By: #### G LYHGB #### [address] [address] Manager Generation: David Ge MD #### CDP, CP #### [address] [place] [phone] Manager Generation: Ramona Hurd MD MCV (RBC) [Entitic vol] 99.5 fL Normal 82.6-102.9 [facility] Comment on above: Performed By: #### G LYHGB #### [address] [phone] Manager Generation: David Ge MD #### CDP, CP #### [address] [place] [phone] Manager Generation: Ramona Hurd MD Monocytes (Bld) [#/Vol] 0.67 10*3/uL Normal 0.10-1.20 [facility] Comment on above: Performed By: #### G LYHGB #### [address] [place] [address] Manager Generation: David Ge MD #### CDP, CP #### [facility] [address] [place] [address] Dr. [place] [phone] Manager Generation: Ramona Hurd MD Monocytes/100 WBC (Bld) 9 % Normal 3-12 [facility] Comment on above: Performed By: #### G LYHGB #### [address] [address] Manager Generation: David Ge MD #### CDP, CP #### [address] [place] [phone] Manager Generation: Ramona Hurd MD Neutrophil (Seg) 54 % Normal 36-65 [facility] Comment on above: Performed By: #### G LYHGB #### [address] [address] Manager Generation: David Ge MD #### CDP, CP #### [address] [place] [address] Manager Generation: Ramona Hurd MD NRBC Automated 0.0 per 100 WBC Normal 0.0 [facility] Comment on above: Performed By: #### G LYHGB #### [address] [address] Manager Generation: David Ge MD #### CDP, CP #### [facility] [address] [place] [address] Dr. [place] [phone] Manager Generation: Ramona Hurd MD Platelet mean volume (Bld) [Entitic vol] 10.3 fL Normal 8.1-13.5 [facility] Comment on above: Performed By: #### G LYHGB #### [facility] [address] [place] [address] Manager Generation: David Ge MD #### CDP, CP #### [facility] [address] [place], [place] [phone] Manager Generation: Ramona Hurd MD Platelets (Bld) [#/Vol] 220 10*3/uL Normal 138-453 [facility] Comment on above: Performed By: #### G LYHGB #### [facility] [address] [place] [address] Manager Generation: David Ge MD #### CDP, CP #### [facility] [address] [place] [address] Dr. [place], [place] [phone] Manager Generation: Ramona Hurd MD RBC (Bld) [#/Vol] 3.79 10*6/uL Low 4.21-5.77 [facility] Comment on above: Performed By: #### G LYHGB #### [facility] [address] [place] [address] Manager Generation: David Ge MD #### CDP, CP #### [facility] [address] [place] [address] Dr. [place], [place] [phone] Manager Generation: Ramona Hurd MD WBC (Bld) [#/Vol] 7.6 10*3/uL Normal 3.5-11.3 [facility] Comment on above: Performed By: #### G LYHGB #### [facility] [address] [place] [address] Manager Generation: David Ge MD #### CDP, CP #### [facility] [address] [place], [place] [phone] Manager Generation: Ramona Hurd MD Comp Metabolic Profon 2021 (cont.) Normal [facility] Comment on above: Result Comment: Aver age GFR for 60-69 years old: 85 mL/min/1.73sq m Chronic Kidney Disease: <60 mL/min/1.73sq m Kidney failure: <15 mL/min/1.73sq m eGFR calculated using average adult body mass. Additional eGFR calculator available at: http://www.[employer]/multiple_crcl_2012.htm Performed By: #### G LYHGB #### [address] [address] Manager Generation: David Ge MD #### CDP, CP #### [address] [place] [address] Manager Generation: Ramona Hurd MD Albumin [Mass/Vol] 4.7 g/dL Normal 3.5-5.2 [facility] Comment on above: Performed By: #### G LYHGB #### [address] [address] Manager Generation: David Ge MD #### CDP, CP #### [address] [place] [phone] Manager Generation: Ramona Hurd MD Albumin/Glob Ratio 1.6 Normal 1.0-2.5 [facility] Comment on above: Performed By: #### G LYHGB #### [address] [address] Manager Generation: David Ge MD #### CDP, CP #### [facility] [address] [place] [address] [place] [address] Manager Generation: Ramona Hurd MD Alkaline Phos 154 U/L High 40-129 [facility] Comment on above: Performed By: #### G LYHGB #### [address] [address] Manager Generation: David Ge MD #### CDP, CP #### [facility] [address] [place], [place] [phone] Manager Generation: Ramona Hurd MD ALT [Catalytic activity/Vol] 24 U/L Normal 5-41 [facility] Comment on above: Performed By: #### G LYHGB #### [facility] [address] [place] [address] Manager Generation: David Ge MD #### CDP, CP #### [facility] [address] [place], [place] [phone] Manager Generation: Ramona Hurd MD Anion gap [Moles/Vol] 12 mmol/L Normal 9-17 [facility] Comment on above: Performed By: #### G LYHGB #### [address] [address] Manager Generation: David Ge MD #### CDP, CP #### [address] [place], [place] [phone] Manager Generation: Ramona Hurd MD AST [Catalytic activity/Vol] 20 U/L Normal <40 [facility] Comment on above: Performed By: #### G LYHGB #### [address] [address] Manager Generation: David Ge MD #### CDP, CP #### [address] [place], [place] [phone] Manager Generation: Ramona Hurd MD Bilirubin [Mass/Vol] 0.30 mg/dL Normal 0.3-1.2 [facility] Comment on above: Performed By: #### G LYHGB #### [address] [address] Manager Generation: David Ge MD #### CDP, CP #### [address] [place], [place] [phone] Manager Generation: Ramona Hurd MD BUN/CRE Ratio 22 High 9-20 [facility] Comment on above: Performed By: #### G LYHGB #### [place] [address] [place] [address] Manager Generation: David Ge MD #### CDP, CP #### [facility] [address] [place], [place] [phone] Manager Generation: Ramona Hurd MD Calcium [Mass/Vol] 9.6 mg/dL Normal 8.6-10.4 [facility] Comment on above: Performed By: #### G LYHGB #### [address] [address] Manager Generation: David Ge MD #### CDP, CP #### [facility] [address] [place] [address] Dr. [place] [phone] Manager Generation: Ramona Hurd MD Chloride [Moles/Vol] 103 mmol/L Normal 98-107 [facility] Comment on above: Performed By: #### G LYHGB #### [address] [address] Manager Generation: David Ge MD #### CDP, CP #### [facility] [address] [place] [address] Dr. [place] [phone] Manager Generation: Ramona Hurd MD CO2 [Moles/Vol] 24 mmol/L Normal 20-31 [facility] Comment on above: Performed By: #### G LYHGB #### [address] [address] Manager Generation: David Ge MD #### CDP, CP #### [facility] [address] [place], [place] [phone] Manager Generation: Ramona Hurd MD Creatinine [Mass/Vol] 1.27 mg/dL High 0.70-1.20 [facility] Comment on above: Performed By: #### G LYHGB #### [address] [address] Manager Generation: David Ge MD #### CDP, CP #### [facility] [address] [place], [place] [phone] Manager Generation: Ramona Hurd MD GFR, Amer >60 Normal >60 [facility] Comment on above: Performed By: #### G LYHGB #### [address] [address] Manager Generation: David Ge MD #### CDP, CP #### [facility] [address] [place] [address] Dr. [place], [place] [phone] Manager Generation: Ramona Hurd MD GFR,non Amer 57 mL/min Low >60 [facility] Comment on above: Performed By: #### G LYHGB #### [address] [address] Manager Generation: David Ge MD #### CDP, CP #### [address] [place], [place] [phone] Manager Generation: Ramona Hurd MD Glucose [Mass/Vol] 155 mg/dL High 70-99 [facility] Comment on above: Performed By: #### G LYHGB #### [address] [address] Manager Generation: David Ge MD #### CDP, CP #### [facility] [address] [place] [address] Dr. [place], [place] [phone] Manager Generation: Ramona Hurd MD Potassium [Moles/Vol] 4.9 mmol/L Normal 3.7-5.3 [facility] Comment on above: Performed By: #### G LYHGB #### [address] [address] Manager Generation: David Ge MD #### CDP, CP #### [facility] [address] [place] [address] [place] [address] Manager Generation: Ramona Hurd MD Protein [Mass/Vol] 7.6 g/dL Normal 6.4-8.3 [facility] Comment on above: Performed By: #### G LYHGB #### [address] [address] Manager Generation: David Ge MD #### CDP, CP #### [address] [place] [phone] Manager Generation: Ramona Hurd MD Sodium [Moles/Vol] 139 mmol/L Normal 135-144 [facility] Comment on above: Performed By: #### G LYHGB #### [address] [address] Manager Generation: David Ge MD #### CDP, CP #### [address] [place] [address] Manager Generation: Ramona Hurd MD Staging: Normal [facility] Comment on above: Result Comment: Stag e 1: Some kidney damage normal GFR Stage 2: Mild kidney damage GFR 60-89 Stage 3: Moderate kidney damage GFR 30-59 Stage 4: Severe kidney damage GFR 15-29 Stage 5: Severe kidney damage GFR <15 ESRD - chronic treatment by dialysis or transplant Performed By: #### G LYHGB #### [place] [address] [place] [address] Manager Generation: David Ge MD #### CDP, CP #### [address] [place] [address] Manager Generation: Ramona Hurd MD Urea nitrogen [Mass/Vol] 28 mg/dL High 8-23 [facility] Comment on above: Performed By: #### G LYHGB #### [facility] [address] [place], [place] [phone] Manager Generation: David Ge MD #### CDP, CP #### [facility] [address] [place] [address] [place] [address] Manager Generation: Ramona Hurd MD MRSA, DNA, Nasalon Specimen Description .NASAL SWAB Normal [facility] Comment on above: Performed By: #### M RSANO #### [facility] [address] [place] [address] Manager Generation: David Ge MD [facility] [address] [place] [address] [place] [address] Manager Generation: Ramona Hurd MD XR CHEST (2 VW)on [...] by: Bret Bae 08/02/21 Final result Normal [facility] No acute cardiopulmonary findings. [facility] EXAMINATION: TWO XRAY VIEWS OF THE CHEST 08/02/2021 1:05 pm COMPARISON: None. HISTORY: ORDERING SYSTEM PROVIDED HISTORY: pre-op TECHNOLOGIST PROVIDED HISTORY: pre-op FINDINGS: No acute airspace infiltrate. No pneumothorax or pleural effusion. The cardiomediastinal silhouette is within normal limits. Vertebroplasty changes in the thoracic spine. [facility] Bret Dinh - 08/02/2021 EXAMINATION: TWO XRAY VIEWS OF THE CHEST 08/02/2021 1:05 pm COMPARISON: None. HISTORY: ORDERING SYSTEM PROVIDED HISTORY: pre-op TECHNOLOGIST PROVIDED HISTORY: pre-op FINDINGS: No acute airspace infiltrate. No pneumothorax or pleural effusion. The cardiomediastinal silhouette is within normal limits. Vertebroplasty changes in the thoracic spine. IMPRESSION: No acute cardiopulmonary findings. [facility] Phone: Radiology Study observation (narrative) [facility] Phone: XR CHEST (2 VW)Ordered By: Marvin Bae on 08-02-2021 [facility] Phone: CBCOrdered By: Grover Born on 12-08-2020 Hematocrit (Bld) [Volume fraction] 27.4 % Low 42.0 - 52.0 % [facility] Phone: Hemoglobin.gastrointes tinal spec 1 Ql (Stl) 9.1 g/dL Low 14.0 - 18.0 g/dL [facility] Phone: Interpretation and review of laboratory results Abnormal [facility] Phone: MCH (RBC) [Entitic mass] 32.7 pg High 27.0 - 31.3 pg [facility] Phone: MCHC (RBC) [Mass/Vol] 33.2 % 33.0 - 37.0 % [employer] Phone: MCV (RBC) [Entitic vol] 98.3 fL 80.0 - 100.0 fL [employer] Phone: Platelet distribution width (Bld) [Ratio] 13.2 % 11.5 - 14.5 % [employer] Phone: Platelets (Bld) [#/Vol] 173 10*3/uL 130 - 400 K/uL [employer] Phone: RBC (Bld) [#/Vol] 2.78 10*6/uL Low [employer] Phone: WBC (Bld) [#/Vol] 12.7 10*3/uL High 4.8 - 10.8 K/uL [employer] Phone: CBC With Platelet No Differe ntialon 12-08-2020 Erythrocyte distribution width (RBC) [Ratio] 13.2 % Normal 11.5-14.5 [facility] Comment on above: Performed By: #### P GLU #### [facility] [address] [place] [address] Hematocrit (Bld) [Volume fraction] 27.4 % Low 42.0-52.0 [facility] Comment on above: Performed By: #### P GLU #### [facility] [address] [place] [address] Hemoglobin (Bld) [Mass/Vol] 9.1 g/dL Low 14.0-18.0 [facility] Comment on above: Performed By: #### P GLU #### [facility] [address] [place] [address] MCH (RBC) [Entitic mass] 32.7 pg Critically high 27.0-31.3 [facility] Comment on above: Performed By: #### P GLU #### [facility] [address] [place] [address] MCHC 33.2 % Normal 33.0-37.0 [facility] Comment on above: Performed By: #### P GLU #### [facility] [address] [place] [address] MCV (RBC) [Entitic vol] 98.3 fL Normal 80.0-100.0 [facility] Comment on above: Performed By: #### P GLU #### [facility] [address] [place] [address] Platelets (Bld) [#/Vol] 173 10*3/uL Normal 130-400 [facility] Comment on above: Performed By: #### P GLU #### [facility] [address] [place] [address] RBC (Bld) [#/Vol] 2.78 10*6/uL Low 4.70-6.10 [facility] Comment on above: Performed By: #### P GLU #### [facility] [address] [place] [address] WBC (Bld) [#/Vol] 12.7 10*3/uL Critically high 4.8-10.8 [facility] Comment on above: Performed By: #### P GLU #### [facility] [address] [place] [address] No Panel InformationOrdered By: Hernandez Tovar on 12-08-2020 [facility] Work Phone: POCT Glucoseon 12-08-2020 Glucose [Mass/Vol] 145 mg/dL Critically high 60-115 M [facility] Comment on above: Performed By: #### P GLU #### [facility] [address] [place] [address] POC Performed on ACCU-CHEK Normal [facility] Comment on above: Result Comment: Trev galdamez RN or Performed By: #### P GLU #### [facility] [address] [place] [address] Glucose [Mass/Vol] 119 mg/dL Critically high 60-115 [facility] Comment on above: Performed By: #### P GLU #### [facility] [address] [place] [address] POC Performed on ACCU-CHEK Normal [facility] Comment on above: Result Comment: Trev galdamez RN or Performed By: #### P GLU #### [facility] [address] [place] [address] Glucose [Mass/Vol] 150 mg/dL Critically high 60-115 [facility] Comment on above: Performed By: #### P GLU #### [facility] [address] [place] [address] POC Performed on ACCU-CHEK Normal [facility] Comment on above: Performed By: #### P GLU #### [facility] [address] [place] [address] POCT GlucoseOrdered By: Unkn own Result on 12-08-2020 Glucose [Mass/Vol] 145 mg/dL High 60 - 115 mg/dl [facility] Phone: Interpretation and review of laboratory results Abnormal [facility] Phone: Performed on ACCU-CHEK [employer] Phone: Comment on above: Notified RN or MD [employer] Phone: Glucose [Mass/Vol] 119 mg/dL High 60 - 115 mg/dl [facility] Phone: Interpretation and review of laboratory results Abnormal [facility] Phone: Performed on ACCU-CHEK [employer] Phone: Comment on above: Notified RN or MD [employer] Phone: Glucose [Mass/Vol] 150 mg/dL High 60 - 115 mg/dl [facility] Phone: Interpretation and review of laboratory results Abnormal [facility] Phone: Performed on ACCU-CHEK [employer] Phone: [employer] Phone: Surgical PathologyOrdered By : Hernandez Tovar on 12-08-2020 [facility] [address] [place], [place] [id number] FINAL SURGICAL PATHOLOGY REPORT Patient Name: DEONDRE LR Accession No: [id number] Age Sex: 1955 Location: [facility] L08884 Account No: [id number] Collected: 12/06/2020 Med Rec No: [id number] Received: 12/06/2020 Attend Phys: HERNANDEZ TOVAR Completed: [...] in two cassettes following decalcification. NORA CPT: 93279 X1 01805 X1 MAIA DUGAN M.D. 12/08/2020 Electronically signed out by Page 1 of 1 [facility] Work Phone: Basic Metabolic Panel Reflex Mgon 12-07-2020 Anion gap [Moles/Vol] 11 mmol/L Normal 9-15 [facility] Comment on above: Performed By: #### B MPX #### [facility] [address] [place] [address] Calcium [Mass/Vol] 8.6 mg/dL Normal 8.5-9.9 [facility] Comment on above: Performed By: #### B MPX #### [facility] [address] [place] [address] Chloride [Moles/Vol] 102 mmol/L Normal 95-107 [facility] Comment on above: Performed By: #### B MPX #### [facility] [address] [place] [address] CO2 [Moles/Vol] 25 mmol/L Normal 20-31 [facility] Comment on above: Performed By: #### B MPX #### [facility] [address] [place] [address] Creatinine [Mass/Vol] 1.15 mg/dL Normal 0.70-1.20 [facility] Comment on above: Performed By: #### B MPX #### [facility] [address] [place] [address] GFR >60.0 Normal >60 [facility] Comment on above: Result Comment: >60 mL/min/1.73m2 EGFR, calc. for ages 18 and older using the MDRD formula (not corrected for weight), is valid for stable renal function. Performed By: #### B MPX #### [facility] [address] [place] [address] GFR/1.73 sq M.predicted among blacks MDRD (S/P/Bld) [Vol rate/Area] mL/min/{1.73_m2} Normal >60 [facility] Comment on above: Result Comment: >60 mL/min/1.73m2 EGFR, calc. for ages 18 and older using the MDRD formula (not corrected for weight), is valid for stable renal function. Performed By: #### B MPX #### [facility] [address] [place] [address] Glucose [Mass/Vol] 160 mg/dL Critically high 70-99 M [facility] Comment on above: Performed By: #### B MPX #### [facility] [address] [place] [address] Magnesium [Moles/Vol] 4.8 mmol/L Normal 3.4-4.9 [facility] Comment on above: Performed By: #### B MPX #### [facility] [address] [place] [address] Sodium [Moles/Vol] 138 mmol/L Normal 135-144 [facility] Comment on above: Performed By: #### B MPX #### [facility] [address] [place] [address] Urea nitrogen [Mass/Vol] 18 mg/dL Normal 8-23 [facility] Comment on above: Performed By: #### B MPX #### [facility] [address] [place] [address] Basic Metabolic Panel w/ Ref rock to MGOrdered By: Hernandez Tovar on 12-07-2020 Anion gap [Moles/Vol] 11 mmol/L [facility] Work Phone: Calcium [Mass/Vol] 8.6 mg/dL 8.5 - 9.9 mg/dL [facility] Work Phone: Chloride [Moles/Vol] 102 mmol/L [employer] Work Phone: CO2 [Moles/Vol] 25 mmol/L [facility] Work Phone: Creatinine [Mass/Vol] 1.15 mg/dL 0.70 - 1.20 mg/dL [facility] Phone: GFR >60.0 >60 [facility] Phone: Comment on above: >60 mL/min/1.73m2 EG FR, calc. for ages 18 and older using the MDRD formula (not corrected for weight), is valid for stable renal function. GFR Non- >60.0 >60 [facility] Phone: Comment on above: >60 mL/min/1.73m2 EG FR, calc. for ages 18 and older using the MDRD formula (not corrected for weight), is valid for stable renal function. Glucose [Mass/Vol] 160 mg/dL High 70 - 99 mg/dL [facility] Work Phone: Interpretation and review of laboratory results Abnormal [employer] Phone: Potassium reflex Magnesium 4.8 [facility] Phone: Sodium [Moles/Vol] 138 mmol/L [facility] Phone: Urea nitrogen (BldV) [Mass/Vol] 18 mg/dL 8 - 23 mg/dL [facility] Phone: [employer] Phone: CBC With Platelet and Differ entialon 12-07-2020 Basophils (Bld) [#/Vol] 0.0 10*3/uL Normal 0.0-0.2 [facility] Comment on above: Performed By: #### C BCWD #### [facility] [address] [place] [address] Basophils/100 WBC (Bld) 0.1 % Normal [facility] Comment on above: Performed By: #### C BCWD #### [facility] [address] [place] [address] Eosinophils (Bld) [#/Vol] 0.0 10*3/uL Normal 0.0-0.7 [facility] Comment on above: Performed By: #### C BCWD #### [facility] [address] [place] [address] Eosinophils/100 WBC (Bld) 0.0 % Normal [facility] Comment on above: Performed By: #### C BCWD #### [facility] [address] [place] [address] Erythrocyte distribution width (RBC) [Ratio] 12.9 % Normal 11.5-14.5 [facility] Comment on above: Performed By: #### C BCWD #### [facility] [address] [place] [address] Hematocrit (Bld) [Volume fraction] 27.8 % Low 42.0-52.0 [facility] Comment on above: Performed By: #### C BCWD #### [facility] [address] [place] [address] Hemoglobin (Bld) [Mass/Vol] 9.3 g/dL Low 14.0-18.0 [facility] Comment on above: Performed By: #### C BCWD #### [facility] [address] [place] [address] Lymphocytes (Bld) [#/Vol] 1.1 10*3/uL Normal 1.0-4.8 [facility] Comment on above: Performed By: #### C BCWD #### [facility] [address] [place] [address] Lymphocytes/100 WBC (Bld) 7.7 % Normal [facility] Comment on above: Performed By: #### C BCWD #### [facility] [address] [place] [address] MCH (RBC) [Entitic mass] 32.6 pg Critically high 27.0-31.3 [facility] Comment on above: Performed By: #### C BCWD #### [facility] [address] [place] [address] MCHC 33.3 % Normal 33.0-37.0 [facility] Comment on above: Performed By: #### C BCWD #### [facility] [address] [place] [address] MCV (RBC) [Entitic vol] 97.8 fL Normal 80.0-100.0 [facility] Comment on above: Performed By: #### C BCWD #### [facility] [address] [place] [address] Monocytes (Bld) [#/Vol] 1.5 10*3/uL Critically high 0.2-0.8 [facility] Comment on above: Performed By: #### C BCWD #### [facility] [address] [place] [address] Monocytes/100 WBC (Bld) 10.1 % Normal [facility] Comment on above: Performed By: #### C BCWD #### [facility] [address] [place] [address] Neutrophils (Bld) [#/Vol] 11.8 10*3/uL Critically high 1.4-6.5 [facility] Comment on above: Performed By: #### C BCWD #### [facility] [address] [place] [address] Neutrophils/100 WBC (Bld) 82.1 % Normal [facility] Comment on above: Performed By: #### C BCWD #### [facility] [address] [place] [address] Platelets (Bld) [#/Vol] 183 10*3/uL Normal 130-400 [facility] Comment on above: Performed By: #### C BCWD #### [facility] [address] [place] [address] RBC (Bld) [#/Vol] 2.84 10*6/uL Low 4.70-6.10 [facility] Comment on above: Performed By: #### C BCWD #### [facility] [address] [place] [address] WBC (Bld) [#/Vol] 14.3 10*3/uL Critically high 4.8-10.8 [facility] Comment on above: Performed By: #### C BCWD #### [facility] [address] [place] [address] CBC auto differentialOrdered By: Hernandez Tovar on 12-07-2020 Basophils (Bld) [#/Vol] 0.0 10*3/uL 0.0 - 0.2 K/uL [employer] Phone: Basophils/100 WBC (Bld) 0.1 % [employer] Phone: Eosinophils (Bld) [#/Vol] 0.0 10*3/uL 0.0 - 0.7 K/uL [employer] Phone: Eosinophils/100 WBC (Bld) 0 % [employer] Phone: Hematocrit (Bld) [Volume fraction] 27.8 % Low 42.0 - 52.0 % [employer] Phone: Hemoglobin.gastrointes tinal spec 1 Ql (Stl) 9.3 g/dL Low 14.0 - 18.0 g/dL [facility] Phone: Interpretation and review of laboratory results Abnormal [facility] Phone: Lymphocytes (Bld) [#/Vol] 1.1 10*3/uL 1.0 - 4.8 K/uL [employer] Phone: Lymphocytes/100 WBC (Bld) 7.7 % [employer] Phone: MCH (RBC) [Entitic mass] 32.6 pg High 27.0 - 31.3 pg [employer] Phone: MCHC (RBC) [Mass/Vol] 33.3 % 33.0 - 37.0 % [employer] Phone: MCV (RBC) [Entitic vol] 97.8 fL 80.0 - 100.0 fL [employer] Phone: Monocytes (Bld) [#/Vol] 1.5 10*3/uL High 0.2 - 0.8 K/uL [employer] Phone: Monocytes/100 WBC (Bld) 10.1 % [employer] Phone: Neutrophils Absolute 11.8 K/uL High 1.4 - 6 .5 K/uL [employer] Phone: Neutrophils/100 WBC (Bld) 82.1 % [employer] Phone: Platelet distribution width (Bld) [Ratio] 12.9 % 11.5 - 14.5 % [employer] Phone: Platelets (Bld) [#/Vol] 183 10*3/uL 130 - 400 K/uL [employer] Phone: RBC (Bld) [#/Vol] 2.84 10*6/uL Low [employer] Phone: WBC (Bld) [#/Vol] 14.3 10*3/uL High 4.8 - 10.8 K/uL [employer] Phone: [employer] Phone: FLUORO FOR SURGICAL PROCEDUR ESOrdered By: Hernandez Tovar on 12-07-2020 [place], Chpo Incoming Radiant Results From [employer] - 12/07/2020 1:12 PM EDT FLUORO FOR SURGICAL PROCEDURES : 12/06/2020 10:30 AM CLINICAL HISTORY: R52 Pain ICD10. COMPARISON: None available. Intraoperative fluoroscopy was provided for Dr. Tovar procedure. A total of 71.7 seconds of fluoroscopy was used, with 4 fluoroscopic stills saved. No diagnostic images were obtained. Please see Dr. Tovar surgical notes for completeness. [facility] Work Phone: [facility] Work Phone: POCT Glucoseon 12-07-2020 Glucose [Mass/Vol] 143 mg/dL Critically high 60-115 [facility] Comment on above: Performed By: #### P GLU #### [facility] [address] [place] [address] POC Performed on ACCU-CHEK Normal [facility] Comment on above: Performed By: #### P GLU #### [facility] [address] [place] [address] Glucose [Mass/Vol] 152 mg/dL Critically high -[address] [place] [address] Comment on above: Performed By: #### P GLU #### [facility] [address] [place] [address] POC Performed on ACCU-CHEK Normal [facility] Comment on above: Performed By: #### P GLU #### [facility] [address] [place] [address] Glucose [Mass/Vol] 272 mg/dL Critically high -[address] [place] [address] Comment on above: Performed By: #### P GLU #### [facility] [address] [place] [address] POC Performed on ACCU-CHEK Normal [facility] Comment on above: Performed By: #### P GLU #### [facility] [address] [place] [address] Glucose [Mass/Vol] 178 mg/dL Critically high [address] [place] [address] Comment on above: Performed By: #### P GLU #### [facility] [address] [place] [address] POC Performed on ACCU-CHEK Normal [facility] Comment on above: Performed By: #### P GLU #### [facility] [address] [place] [address] POCT GlucoseOrdered By: Unkn own Result on 12-07-2020 Glucose [Mass/Vol] 143 mg/dL High 60 - 115 mg/dl [employer] Phone: Interpretation and review of laboratory results Abnormal [employer] Phone: Performed on ACCU-CHEK [employer] Phone: [employer] Phone: Glucose [Mass/Vol] 152 mg/dL High 60 - 115 mg/dl [employer] Phone: Interpretation and review of laboratory results Abnormal [employer] Phone: Performed on ACCU-CHEK [employer] Phone: [employer] Phone: Glucose [Mass/Vol] 272 mg/dL High 60 - 115 mg/dl [employer] Phone: Interpretation and review of laboratory results Abnormal [employer] Phone: Performed on ACCU-CHEK [employer] Phone: [employer] Phone: Glucose [Mass/Vol] 178 mg/dL High 60 - 115 mg/dl [employer] Phone: Interpretation and review of laboratory results Abnormal [employer] Phone: Performed on ACCU-CHEK [employer] Phone: [employer] Phone: XR LUMBAR SPINE (2-3 VIEWS)o n [...] Liban Solis MD 12/07/20 Final result Normal [facility] XR LUMBAR SPINE (2-3 VIEWS)O rdered By: Hernandez Tovar on 12-07-2020 Interval postoperative changes of L3-L4 posterior laminectomy and stable L4-S1 posterior fusion, with intact hardware. [employer] Phone: TECHNIQUE: AP AND LATERAL VIEWS OF [...] imaged femoral joints. SI joints are unremarkable. [employer] Phone: [place], po Incoming Radiant Results From [employer] - 12/07/2020 11:21 AM EDT TECHNIQUE: AP [...] stable L4-S1 posterior fusion, with intact hardware. [facility] [employer] Work Phone: [facility] [employer] Work Phone: Basic Metabolic Panel Reflex Mgon 12-06-2020 Anion gap [Moles/Vol] 10 mmol/L Normal 9-15 [facility] Comment on above: Performed By: #### B MPX #### [facility] [address] [place] [address] Calcium [Mass/Vol] 8.2 mg/dL Low 8.5-9.9 [facility] Comment on above: Performed By: #### B MPX #### [facility] [address] [place] [address] Chloride [Moles/Vol] 102 mmol/L Normal 95-107 [facility] Comment on above: Performed By: #### B MPX #### [facility] [address] [place] [address] CO2 [Moles/Vol] 25 mmol/L Normal 20-31 [facility] Comment on above: Performed By: #### B MPX #### [facility] [address] [place] [address] Creatinine [Mass/Vol] 1.18 mg/dL Normal 0.70-1.20 [facility] Comment on above: Performed By: #### B MPX #### [facility] [address] [place] [address] GFR >60.0 Normal >60 [facility] Comment on above: Result Comment: >60 mL/min/1.73m2 EGFR, calc. for ages 18 and older using the MDRD formula (not corrected for weight), is valid for stable renal function. Performed By: #### B MPX #### [facility] [address] [place] [address] GFR/1.73 sq M.predicted among blacks MDRD (S/P/Bld) [Vol rate/Area] mL/min/{1.73_m2} Normal >60 [facility] Comment on above: Result Comment: >60 mL/min/1.73m2 EGFR, calc. for ages 18 and older using the MDRD formula (not corrected for weight), is valid for stable renal function. Performed By: #### B MPX #### [facility] [address] [place] [address] Glucose [Mass/Vol] 197 mg/dL Critically high 70-99 [facility] Comment on above: Performed By: #### B MPX #### [facility] [address] [place] [address] Magnesium [Moles/Vol] 4.1 mmol/L Normal 3.4-4.9 [facility] Comment on above: Performed By: #### B MPX #### [facility] [address] [place] [address] Sodium [Moles/Vol] 137 mmol/L Normal 135-144 [facility] Comment on above: Performed By: #### B MPX #### [facility] [address] [place] [address] Urea nitrogen [Mass/Vol] 19 mg/dL Normal 8-23 [facility] Comment on above: Performed By: #### B MPX #### [facility] [address] [place] [id number] Basic Metabolic Panel w/ Ref rock to MGOrdered By: Hernandez Tovar on 12-06-2020 Anion gap [Moles/Vol] 10 mmol/L [facility] [employer] Work Phone: Calcium [Mass/Vol] 8.2 mg/dL Low 8.5 - 9.9 mg/dL [facility] [employer] Work Phone: Chloride [Moles/Vol] 102 mmol/L [facility] [employer] Work Phone: CO2 [Moles/Vol] 25 mmol/L [facility] Work Phone: Creatinine [Mass/Vol] 1.18 mg/dL 0.70 - 1.20 mg/dL [facility] [employer] Work Phone: GFR >60.0 >60 [facility] [employer] Work Phone: Comment on above: >60 mL/min/1.73m2 EG FR, calc. for ages 18 and older using the MDRD formula (not corrected for weight), is valid for stable renal function. GFR Non- >60.0 >60 [facility] [employer] Phone: Comment on above: >60 mL/min/1.73m2 EG FR, calc. for ages 18 and older using the MDRD formula (not corrected for weight), is valid for stable renal function. Glucose [Mass/Vol] 197 mg/dL High 70 - 99 mg/dL [facility] [employer] Phone: Interpretation and review of laboratory results Abnormal [facility] Work Phone: Potassium reflex Magnesium 4.1 [facility] Phone: Sodium [Moles/Vol] 137 mmol/L [facility] Phone: Urea nitrogen (BldV) [Mass/Vol] 19 mg/dL 8 - 23 mg/dL [facility] [employer] Phone: [facility] [employer] Phone: CBC With Platelet No Differe ntialon 12-06-2020 Erythrocyte distribution width (RBC) [Ratio] 13.1 % Normal 11.5-14.5 [facility] Comment on above: Performed By: #### C BCND #### [facility] [address] [place] [address] Hematocrit (Bld) [Volume fraction] 30.4 % Low 42.0-52.0 [facility] Comment on above: Performed By: #### C BCND #### [facility] [address] [place] [address] Hemoglobin (Bld) [Mass/Vol] 10.0 g/dL Low 14.0-18.0 [facility] Comment on above: Performed By: #### C BCND #### [facility] [address] [place] [address] MCH (RBC) [Entitic mass] 32.6 pg Critically high 27.0-31.3 [facility] Comment on above: Performed By: #### C BCND #### [facility] [address] [place] [address] MCHC 32.9 % Low 33.0-37.0 [facility] Comment on above: Performed By: #### C BCND #### [facility] [address] [place] [address] MCV (RBC) [Entitic vol] 99.0 fL Normal 80.0-100.0 [facility] Comment on above: Performed By: #### C BCND #### [facility] [address] [place] [address] Platelets (Bld) [#/Vol] 161 10*3/uL Normal 130-400 [facility] Comment on above: Performed By: #### C BCND #### [facility] [address] [place] [address] RBC (Bld) [#/Vol] 3.07 10*6/uL Low 4.70-6.10 [facility] Comment on above: Performed By: #### C BCND #### [facility] [address] [place] [address] WBC (Bld) [#/Vol] 8.4 10*3/uL Normal 4.8-10.8 [facility] Comment on above: Performed By: #### C BCND #### [facility] [address] [place] [address] CBC without DiffOrdered By: Hernandez Tovar on 12-06-2020 Hematocrit (Bld) [Volume fraction] 30.4 % Low 42.0 - 52.0 % [employer] Phone: Hemoglobin.gastrointes tinal spec 1 Ql (Stl) 10.0 g/dL Low 14.0 - 18.0 g/dL [employer] Phone: Interpretation and review of laboratory results Abnormal [employer] Phone: MCH (RBC) [Entitic mass] 32.6 pg High 27.0 - 31.3 pg [employer] Phone: MCHC (RBC) [Mass/Vol] 32.9 % Low 33.0 - 37.0 % [employer] Phone: MCV (RBC) [Entitic vol] 99.0 fL 80.0 - 100.0 fL [employer] Phone: Platelet distribution width (Bld) [Ratio] 13.1 % 11.5 - 14.5 % [employer] Phone: Platelets (Bld) [#/Vol] 161 10*3/uL 130 - 400 K/uL [employer] Phone: RBC (Bld) [#/Vol] 3.07 10*6/uL Low [employer] Phone: WBC (Bld) [#/Vol] 8.4 10*3/uL 4.8 - 10.8 K/uL [facility] Phone: [employer] Phone: No Panel InformationOrdered By: Unknown Result on 12-06-2020 Interpretation and review of laboratory results Abnormal [employer] Phone: Performed on ACCU-CHEK [facility] Phone: [employer] Phone: POCT Glucoseon 12-06-2020 Glucose [Mass/Vol] 198 mg/dL Critically high 60-115 [facility] Comment on above: Performed By: #### P GLU #### [facility] [address] [place] [address] POC Performed on ACCU-CHEK Normal [facility] Comment on above: Performed By: #### P GLU #### [facility] [address] [place] [address] Glucose [Mass/Vol] 210 mg/dL Critically high 60-115 [facility] Comment on above: Performed By: #### P GLU #### [facility] [address] [place] [address] POC Performed on ACCU-CHEK Normal [facility] Comment on above: Performed By: #### P GLU #### [facility] [address] [place] [address] Glucose [Mass/Vol] 189 mg/dL Critically high 60-115 [facility] Comment on above: Performed By: #### P GLU #### [facility] [address] [place] [address] POC Performed on ACCU-CHEK Normal [facility] Comment on above: Performed By: #### P GLU #### [facility] [address] [place] [address] POC Performed on ACCU-CHEK Normal [facility] Comment on above: Performed By: #### P GLU #### [facility] [address] [facility] [place] [address] POCT GlucoseOrdered By: Unkn own Result on 12-06-2020 Glucose [Mass/Vol] 198 mg/dL High 60 - 115 mg/dl [employer] Phone: Interpretation and review of laboratory results Abnormal [employer] Phone: Performed on ACCU-CHEK [employer] Phone: [facility] Phone: Glucose [Mass/Vol] 210 mg/dL High 60 - 115 mg/dl [employer] Phone: Interpretation and review of laboratory results Abnormal [employer] Phone: Performed on ACCU-CHEK [employer] Phone: [employer] Phone: Glucose [Mass/Vol] 189 mg/dL High 60 - 115 mg/dl [employer] Phone: Glucose [Mass/Vol] 171 mg/dL Critically high 60-115 [facility] Phone: Comment on above: Performed By: #### P GLU #### [facility] [address] [place] [address] [id number] Surgical Specimenon 12-07-19 21 Surgical Specimen [facility] [address] [place], [place] [id number] FINAL SURGICAL PATHOLOGY REPORT Patient Name: DEONDRE LR Accession No: [id number] Age Sex: 1955 Location: [facility] [id number] Account No: [id number] Collected: 12/06/2020 Med Rec No: [id number] Received: 12/06/2020 Attend Phys: HERNANDEZ TOVAR Completed: [...] in two cassettes following decalcification. NORA CPT: 25432 X1 49633 X1 MAIA DUGAN M.D. 12/08/2020 Electronically signed out by Page 1 of 1 Invalid Interpretation Code [facility] Comment on above: Performed By: #### P GLU #### [facility] [address] [place] [address] Basic Metabolic Panelon 07-0 Anion gap [Moles/Vol] 10 mmol/L Normal 9-15 [facility] Comment on above: Performed By: #### B MP #### [facility] [address] [place] [address] Calcium [Mass/Vol] 9.3 mg/dL Normal 8.5-9.9 [facility] Comment on above: Performed By: #### B MP #### [facility] [address] [place] [address] Chloride [Moles/Vol] 108 mmol/L Critically high 95-107 [facility] Comment on above: Performed By: #### B MP #### [facility] [address] [place] [address] CO2 [Moles/Vol] 26 mmol/L Normal 20-31 [facility] Comment on above: Performed By: #### B MP #### [facility] [address] [place] [address] Creatinine [Mass/Vol] 1.03 mg/dL Normal 0.70-1.20 [facility] Comment on above: Performed By: #### B MP #### [facility] [address] [place] [address] GFR >60.0 Normal >60 [facility] Comment on above: Result Comment: >60 mL/min/1.73m2 EGFR, calc. for ages 18 and older using the MDRD formula (not corrected for weight), is valid for stable renal function. Performed By: #### B MP #### [facility] [address] [place] [address] GFR/1.73 sq M.predicted among blacks MDRD (S/P/Bld) [Vol rate/Area] mL/min/{1.73_m2} Normal >60 [facility] Comment on above: Result Comment: >60 mL/min/1.73m2 EGFR, calc. for ages 18 and older using the MDRD formula (not corrected for weight), is valid for stable renal function. Performed By: #### B MP #### [facility] [address] [place] [address] Glucose [Mass/Vol] 104 mg/dL Critically high 70-99 [facility] Comment on above: Performed By: #### B MP #### [facility] [address] [place] [address] Potassium [Moles/Vol] 4.3 mmol/L Normal 3.4-4.9 [facility] Comment on above: Performed By: #### B MP #### [facility] [address] [place] [address] Sodium [Moles/Vol] 144 mmol/L Normal 135-144 [facility] Comment on above: Performed By: #### B MP #### [facility] [address] [place] [address] Urea nitrogen [Mass/Vol] 14 mg/dL Normal 8-23 [facility] Comment on above: Performed By: #### B MP #### [facility] [address] [place] [address] CBC With Platelet No Differe ntialon 11-25-2020 Erythrocyte distribution width (RBC) [Ratio] 13.2 % Normal 11.5-14.5 [facility] Comment on above: Performed By: #### C BCND #### [facility] [address] [place] [address] Hematocrit (Bld) [Volume fraction] 32.3 % Low 42.0-52.0 [facility] Comment on above: Performed By: #### C BCND #### [facility] [address] [place] [address] Hemoglobin (Bld) [Mass/Vol] 11.1 g/dL Low 14.0-18.0 [facility] Comment on above: Performed By: #### C BCND #### [facility] [address] [place] [address] MCH (RBC) [Entitic mass] 33.8 pg Critically high 27.0-31.3 [facility] Comment on above: Performed By: #### C BCND #### [facility] [address] [place] [address] MCHC 34.4 % Normal 33.0-37.0 [facility] Comment on above: Performed By: #### C BCND #### [facility] [address] [place] [address] MCV (RBC) [Entitic vol] 98.3 fL Normal 80.0-100.0 [facility] Comment on above: Performed By: #### C BCND #### [facility] [address] [place] [address] Platelets (Bld) [#/Vol] 212 10*3/uL Normal 130-400 [facility] Comment on above: Performed By: #### C BCND #### [facility] [address] [place] [address] RBC (Bld) [#/Vol] 3.29 10*6/uL Low 4.70-6.10 [facility] Comment on above: Performed By: #### C BCND #### [facility] [address] [place] [address] WBC (Bld) [#/Vol] 7.5 10*3/uL Normal 4.8-10.8 [facility] Comment on above: Performed By: #### C BCND #### [facility] [address] [place] [address] Partial Thromboplastin Timeo n 11-25-2020 aPTT Coag (Bld) [Time] 33.3 s Normal 24.4-36.8 [facility] Comment on above: Result Comment: Effe ctive 03/30/2020: Heparin Therapeutic Range: 64.0 ? 98.0 seconds. Performed By: #### P TT #### [facility] [address] [place] [address] Prothrombin Timeon INR Coag (PPP) [Relative time] 1.0 {INR} Normal [facility] Comment on above: Performed By: #### P T #### [facility] [address] [place] [address] PT Coag (PPP) [Time] 13.0 s Normal 12.3-14.9 [facility] Comment on above: Performed By: #### P T #### [facility] [address] [place] [address] Type and Screen Capture 3 sc rn cellon 11-25-2020 Type and Screen Capture 3 scrn cell PATIENT: GERONIMO Koroma LOC: [facility] BILL# : [id number] : 1955 SEX: M ORDERED BY: GLORIA ORDAZ ORDERED : 11/25/2020 13:32 COLLECTED: 11/25/2020 13:34 ORDER : [id number] RECEIVED : 11/25/2020 16:04 TEST NAME RESULT UNITS RANGES ABN FL ST ABORH Capture O POS F Antibody 3 Cell Scrn Captu NEG F Normal [facility] Comment on above: Performed By: #### T S3C #### [facility] [address] [place] [address] XR SPINE ENTIRE (2-3 VIEWS)O rdered By: [...] osseous changes. There is no significant scoliosis. [employer] Work Phone: [place], [facility] Incoming Radiant Results From [employer] - 11/25/2020 4:28 PM EDT CLINICAL HISTORY:M54.10 [...] osseous changes. There is no significant scoliosis. [employer] Phone: [employer] Phone: XR SPINE ENTIRE (2-3 VIEWS)o n [...] Les Delgado MD 11/25/20 Final result Normal [facility] POCT GlucoseOrdered By: Unkn own Result on 06-08-2019 Glucose [Mass/Vol] 127 mg/dL High 60 - 115 mg/dl [employer] Phone: Interpretation and review of laboratory results Abnormal [employer] Phone: Performed on ACCU-CHEK [employer] Phone: Glucose [Mass/Vol] 125 mg/dL [employer] Phone: Performed on [employer] Pet Phone: POCT GlucoseOrdered By: Unkn own Result on 06-07-2019 Glucose [Mass/Vol] 112 mg/dL [employer] Phone: Performed on ACCU-[employer] Phone: Glucose [Mass/Vol] 123 mg/dL [employer] Phone: Performed on ACCU-[employer] Phone: Glucose [Mass/Vol] 131 mg/dL [employer] Phone: Performed on ACCU-[employer] Phone: Glucose [Mass/Vol] 110 mg/dL [employer] Phone: Performed on [employer] Pet Phone: POCT GlucoseOrdered By: Unkn own Result on 06-06-2019 Glucose [Mass/Vol] 117 mg/dL [employer] Phone: Performed on ACCU-[employer] Phone: Glucose [Mass/Vol] 126 mg/dL [employer] Phone: Performed on ACCU-[employer] Work Phone: Glucose [Mass/Vol] 125 mg/dL [employer] Phone: Performed on [employer] Pet Phone: Glucose [Mass/Vol] 138 mg/dL [employer] Phone: Performed on ACCU[employer] Phone: Glucose [Mass/Vol] 124 mg/dL [employer] Phone: Performed on ACCU-CHEK [facility] [employer] Work Phone: Basic Metabolic Panel w/ Ref rock to MGOrdered By: Hernandez Tovar on 06-05-2019 Anion gap [Moles/Vol] 14 mmol/L [facility] [employer] Work Phone: Calcium [Mass/Vol] 8.5 mg/dL 8.5 - 9.9 mg/dL [facility] [employer] Work Phone: Chloride [Moles/Vol] 98 mmol/L [facility] [employer] Work Phone: CO2 [Moles/Vol] 25 mmol/L [facility] Work Phone: Creatinine [Mass/Vol] 0.94 mg/dL 0.7 - 1.2 mg/dL [facility] [employer] Work Phone: GFR >60.0 >60 [facility] [employer] Work Phone: Comment on above: >60 mL/min/1.73m2 EG FR, calc. for ages 18 and older using the MDRD formula (not corrected for weight), is valid for stable renal function. GFR Non- >60.0 >60 [facility] [employer] Work Phone: Comment on above: >60 mL/min/1.73m2 EG FR, calc. for ages 18 and older using the MDRD formula (not corrected for weight), is valid for stable renal function. Glucose [Mass/Vol] 180 mg/dL High 70 - 99 mg/dL [facility] [employer] Work Phone: Interpretation and review of laboratory results Abnormal [facility] [employer] Work Phone: Potassium reflex Magnesium 3.6 [facility] [employer] Work Phone: Sodium [Moles/Vol] 137 mmol/L [facility] [employer] Work Phone: Urea nitrogen [Mass/Vol] 14 mg/dL 8 - 23 mg/dL [facility] [employer] Work Phone: CBC auto differentialOrdered By: Hernandez Tovar on 06-05-2019 Bands Relative 1 % [facility] Work Phone: Basophils (Bld) [#/Vol] 0.0 10*3/uL 0 - 0.2 K/uL [employer] Phone: Basophils/100 WBC (Bld) 0.4 % [employer] Phone: Eosinophils (Bld) [#/Vol] 0.0 10*3/uL 0 - 0.7 K/uL [employer] Phone: Eosinophils/100 WBC (Bld) 0.1 % [employer] Phone: Erythrocyte distribution width (RBC) [Ratio] 13.4 % 11.5 - 14.5 % [employer] Phone: Hematocrit (Bld) [Volume fraction] 32.2 % Low 42 - 52 % [employer] Phone: Hemoglobin (Bld) [Mass/Vol] 10.6 g/dL Low 14 - 18 g/dL [employer] Phone: Interpretation and review of laboratory results Abnormal [employer] Phone: Lymphocytes (Bld) [#/Vol] 1.1 10*3/uL 1 - 4.8 K/uL [employer] Phone: Lymphocytes/100 WBC (Bld) 7.0 % [employer] Phone: Macrocytes Ql (Bld) 1+ [employer] Phone: MCH (RBC) [Entitic mass] 33.3 pg High 27 - 31.3 pg [employer] Phone: MCHC 33.0 % 33 - 37 % [employer] Phone: MCV (RBC) [Entitic vol] 101.1 fL High 80 - 100 fL [employer] Phone: Monocytes (Bld) [#/Vol] 0.8 10*3/uL 0.2 - 0.8 K/uL [employer] Phone: Monocytes/100 WBC (Bld) 4.7 % [employer] Phone: Neutrophils Absolute 13.4 K/uL High 1.4 - 6 .5 K/uL [facility] Phone: Neutrophils/100 WBC (Bld) 88.0 % [employer] Phone: PLATELET SLIDE REVIEW Normal [facility] [employer] Phone: Platelets (Bld) [#/Vol] 223 10*3/uL 130 - 400 K/uL [facility] Phone: RBC (Bld) [#/Vol] 3.19 10*6/uL Low [facility] Phone: SLIDE REVIEW see below [employer] Phone: Comment on above: Slide review agrees with reported results WBC (Bld) [#/Vol] 15.1 10*3/uL High 4.8 - 10.8 K/uL [employer] Phone: POCT GlucoseOrdered By: Unkn own Result on 06-05-2019 Glucose [Mass/Vol] 134 mg/dL [employer] Phone: Performed on ACCU-CHEK [employer] Phone: Glucose [Mass/Vol] 166 mg/dL [employer] Phone: Performed on ACCU-CHEK [employer] Phone: Glucose [Mass/Vol] 166 mg/dL [employer] Phone: Performed on ACCU-CHEK [employer] Phone: Glucose [Mass/Vol] 160 mg/dL High 60 - 115 mg/dl [employer] Phone: Interpretation and review of laboratory results Abnormal [employer] Phone: Performed on ACCU-CHEK [employer] Work Phone: Surgical PathologyOrdered By : Hernandez Tovar on 06-05-2019 [employer] [facility] [address] [place], [place] [id number] FINAL SURGICAL PATHOLOGY REPORT Patient Name: DEONDRE LR Accession No: [id number] Age Sex: 1955 Location: [place] [id number] Account No: [id number] Collected: 06/04/2019 [facility] Rec No: [id number] Received: 06/04/2019 Attend Phys: HERNANDEZ TOVAR Completed: [...] and A2 for brief decalcification. WADE/TOBIN CPT: 32603 X1 ALDA ELLER M.D. 06/05/2019 Electronically signed out by Page 1 of 1 [employer] Phone: XR LUMBAR SPINE (2-3 VIEWS)O rdered By: Hernandez Tovar on 06-05-2019 Impression: 1. Postoperative changes as described above without unexpected postoperative complicating features. 2. Mild bilateral osteoarthritis of the hips. [employer] Phone: Patient : 1955 Age: 64 years [...] gas pattern. Mild degenerative changes bilateral hips. [employer] Phone: Moses, Chpo Incoming Radiant Results From [employer] - 06/05/2019 11:52 AM EST Patient : [...] 2. Mild bilateral osteoarthritis of the hips. [employer] Work Phone: APTTOrdered By: Susie laura on 06-04-2019 aPTT Coag (Bld) [Time] 32.3 s [facility] [employer] Work Phone: Comment on above: Effective 12/11/2018: Please note methodology and/or reference ranges have changed. aPTT - Heparin Therapeutic Range: 74.0 - 106 seconds Basic Metabolic PanelOrdered By: Susie Lee on 06-04-2019 Anion gap [Moles/Vol] 11 mmol/L [facility] [employer] Work Phone: Calcium [Mass/Vol] 9.0 mg/dL 8.5 - 9.9 mg/dL [facility] [employer] Phone: Chloride [Moles/Vol] 106 mmol/L [facility] [employer] Work Phone: CO2 [Moles/Vol] 26 mmol/L [facility] Work Phone: Creatinine [Mass/Vol] 0.93 mg/dL 0.7 - 1.2 mg/dL [facility] [employer] Work Phone: GFR >60.0 >60 [facility] [employer] Work Phone: Comment on above: >60 mL/min/1.73m2 EG FR, calc. for ages 18 and older using the MDRD formula (not corrected for weight), is valid for stable renal function. GFR Non- >60.0 >60 [employer] Phone: Comment on above: >60 mL/min/1.73m2 EG FR, calc. for ages 18 and older using the MDRD formula (not corrected for weight), is valid for stable renal function. Glucose [Mass/Vol] 134 mg/dL High 70 - 99 mg/dL [employer] Phone: Interpretation and review of laboratory results Abnormal [employer] Phone: Potassium [Moles/Vol] 4.3 mmol/L [employer] Work Phone: Sodium [Moles/Vol] 143 mmol/L [employer] Phone: Urea nitrogen [Mass/Vol] 19 mg/dL 8 - 23 mg/dL [employer] Phone: Basic Metabolic Panel w/ Ref rock to MGOrdered By: Hernandez Tovar on 06-04-2019 Anion gap [Moles/Vol] 13 mmol/L [facility] [employer] Work Phone: Calcium [Mass/Vol] 8.3 mg/dL Low 8.5 - 9.9 mg/dL [employer] Phone: Chloride [Moles/Vol] 104 mmol/L [employer] Work Phone: CO2 [Moles/Vol] 23 mmol/L [employer] [facility] Work Phone: Creatinine [Mass/Vol] 0.91 mg/dL 0.7 - 1.2 mg/dL [employer] Phone: GFR >60.0 >60 [employer] Phone: Comment on above: >60 mL/min/1.73m2 EG FR, calc. for ages 18 and older using the MDRD formula (not corrected for weight), is valid for stable renal function. GFR Non- >60.0 >60 [employer] Phone: Comment on above: >60 mL/min/1.73m2 EG FR, calc. for ages 18 and older using the MDRD formula (not corrected for weight), is valid for stable renal function. Glucose [Mass/Vol] 177 mg/dL High 70 - 99 mg/dL [employer] Phone: Interpretation and review of laboratory results Abnormal [employer] Phone: Potassium reflex Magnesium 4.2 [employer] Phone: Sodium [Moles/Vol] 140 mmol/L [employer] Phone: Urea nitrogen [Mass/Vol] 18 mg/dL 8 - 23 mg/dL [employer] Phone: CBCOrdered By: Susie ewing on 06-04-2019 Erythrocyte distribution width (RBC) [Ratio] 13.7 % 11.5 - 14.5 % [employer] Phone: Hematocrit (Bld) [Volume fraction] 35.1 % Low 42 - 52 % [employer] Phone: Hemoglobin (Bld) [Mass/Vol] 11.7 g/dL Low 14 - 18 g/dL [employer] Phone: Interpretation and review of laboratory results Abnormal [employer] Phone: MCH (RBC) [Entitic mass] 33.6 pg High 27 - 31.3 pg [employer] Phone: MCHC 33.4 % 33 - 37 % [employer] Phone: MCV (RBC) [Entitic vol] 100.7 fL High 80 - 100 fL [employer] Phone: Platelets (Bld) [#/Vol] 206 10*3/uL 130 - 400 K/uL [employer] Phone: RBC (Bld) [#/Vol] 3.48 10*6/uL Low [employer] Phone: WBC (Bld) [#/Vol] 7.6 10*3/uL 4.8 - 10.8 K/uL [employer] Phone: CBC without DiffOrdered By: Hernandez Tovar on 06-04-2019 Erythrocyte distribution width (RBC) [Ratio] 13.7 % 11.5 - 14.5 % [employer] Phone: Hematocrit (Bld) [Volume fraction] 32.9 % Low 42 - 52 % [employer] Phone: Hemoglobin (Bld) [Mass/Vol] 10.7 g/dL Low 14 - 18 g/dL [employer] Phone: Interpretation and review of laboratory results Abnormal [employer] Phone: MCH (RBC) [Entitic mass] 33.4 pg High 27 - 31.3 pg [employer] Phone: MCHC 32.6 % Low 33 - 37 % [employer] Phone: MCV (RBC) [Entitic vol] 102.4 fL High 80 - 100 fL [employer] Phone: Platelets (Bld) [#/Vol] 177 10*3/uL 130 - 400 K/uL [employer] Phone: RBC (Bld) [#/Vol] 3.22 10*6/uL Low [employer] Phone: WBC (Bld) [#/Vol] 9.0 10*3/uL 4.8 - 10.8 K/uL [employer] Phone: POCT GlucoseOrdered By: Unkn own Result on 06-04-2019 Glucose [Mass/Vol] 181 mg/dL High 60 - 115 mg/dl [employer] Phone: Interpretation and review of laboratory results Abnormal [employer] Phone: Performed on ACCU-CHEK [employer] Phone: Glucose [Mass/Vol] 187 mg/dL High 60 - 115 mg/dl [employer] Phone: Interpretation and review of laboratory results Abnormal [employer] Phone: Performed on ACCU-CHEK [employer] Phone: Glucose [Mass/Vol] 140 mg/dL High 60 - 115 mg/dl [employer] Phone: Interpretation and review of laboratory results Abnormal [employer] Work Phone: Performed on ACCU-CHEK [employer] Work Phone: Protime-INROrdered By: Alejandro Lee on 06-04-2019 INR Coag (PPP) [Relative time] 1.0 {INR} [employer] Phone: Comment on above: Warfarin Therapy INR Therapeutic: 2.0-3.0 With Mechanical Valve: >2.5 Low-intensity Therapeutic Range: 1.5-2.0 Mod-intensity Therapeutic Range: 2.0-3.0 High-intensity Therapeutic Range: 2.5-3.5 High-intensity Therapeutic Range: 3.0-4.0 Common Critical/Alarm Value: 5.0 Common Upper Limit Reported: 10.0 Effective 12/04/2018: Please note methodology and/or reference ranges have changed. PT Coag (PPP) [Time] 13.1 s [employer] Work Phone: Comment on above: Effective 12/04/18 Please note methodology and/or reference ranges have changed. TYPE AND SCREENOrdered By: Camelia Lee on 06-04-2019 ABO/Rh Positive [employer] Phone: Vital Signs Date Time Vital Sign Value Performing Clinician Facility 11-21-2023 15:23-0400 Blood Pressure Location [facility] 11-21-2023 15:23-0400 Body temperature 96.8 [degF] Usha Orzech [facility] 11-21-2023 15:23-0400 Diastolic blood pressure 68 mm[Hg] Usha Orzech [facility] 11-21-2023 15:23-0400 Heart rate 64 /min Usha Orzech [facility] 11-21-2023 15:23-0400 Respiratory rate 18 /min Usha Orzech [facility] 11-21-2023 15:23-0400 Systolic blood pressure 130 mm[Hg] Usha Orzech [facility] 02-04-2023 15:30-0400 Body height 165.1 cm Mike Yuan Other [employer] [facility] [employer] Other 02-04-2023 15:30-0400 Body mass index (BMI) [Ratio] 28.05 kg/m2 Mike Yuan Other [employer] Other 02-04-2023 15:30-0400 Body weight 76.48 kg Mike Yuan Other [employer] Other 02-04-2023 15:30-0400 Diastolic blood pressure 58 mm[Hg] Mike Yuan Other [employer] Other 02-04-2023 15:30-0400 Respiratory rate 12 /min Mike Yuan Other [employer] Other 02-04-2023 15:30-0400 Systolic blood pressure 93 mm[Hg] Mike Yuan Other [employer] Other 11-02-2022 14:45-0400 Body height 165.1 cm Mike Yuan Other [employer] Other 11-02-2022 14:45-0400 Body mass index (BMI) [Ratio] 28.95 kg/m2 Mike Yuan Other [employer] Other 11-02-2022 14:45-0400 Body weight 78.93 kg Mike Yuan Other [employer] Other 11-02-2022 14:45-0400 Diastolic blood pressure 63 mm[Hg] Mike Yuan Other [employer] Other 11-02-2022 14:45-0400 Systolic blood pressure 97 mm[Hg] Mike Yuan Other [employer] Other 12-06-2021 13:34-0400 SaO2% (BldA) [Mass fraction] 95 % Skye Garcia MD Work Phone: [facility] 12-06-2021 13:00-0400 Diastolic blood pressure 71 mm[Hg] Skye Garcia MD Work Phone: [facility] 12-06-2021 13:00-0400 Systolic blood pressure 95 mm[Hg] Skye Garcia MD Work Phone: [facility] 12-06-2021 12:51-0400 Body height 165.1 cm Skye Garcia MD Work Phone: [facility] 12-06-2021 12:51-0400 Body mass index (BMI) [Ratio] 29.95 kg/m2 Skye Garcia MD Work Phone: [facility] 12-06-2021 12:51-0400 Body weight 81.65 kg Skye Garcia MD Work Phone: [facility] 12-06-2021 12:51-0400 Heart rate 70 /min Skye Garcia MD Work Phone: [facility] [employer] 12-06-2021 12:51-0400 Respiratory rate 18 /min Skye Garcia MD Work Phone: [facility] [employer] 09-06-2021 08:21-0400 Body height 165.1 cm [facility] 09-06-2021 06:42-0400 Body temperature 98.01 [degF] Zenia Molina MD Work Phone: [employer] 09-06-2021 06:42-0400 Diastolic blood pressure 60 mm[Hg] Zenia Molina MD Work Phone: [employer] 09-06-2021 06:42-0400 Heart rate 71 /min Zenia Molina MD Work Phone: [employer] 09-06-2021 06:42-0400 Respiratory rate 16 /min Zenia Molina MD Work Phone: [employer] 09-06-2021 06:42-0400 SaO2% (BldA) [Mass fraction] 93 % Zenia Molina MD Work Phone: [employer] 09-06-2021 06:42-0400 Systolic blood pressure 99 mm[Hg] Zenia Molina MD Work Phone: [employer] 09-05-2021 07:45-0400 Body mass index (BMI) [Ratio] 29.29 kg/m2 Zenia Molina MD Work Phone: [employer] 09-05-2021 07:45-0400 Body weight 79.83 kg Zenia Molina MD Work Phone: [employer] 08-22-2021 10:36-0400 Body height 165.1 cm Zenia Molina MD Work Phone: [employer] 08-22-2021 10:36-0400 Body temperature 97.9 [degF] Zenia Molina MD Work Phone: [employer] 08-22-2021 10:36-0400 Diastolic blood pressure 78 mm[Hg] Zenia Molina MD Work Phone: [employer] 08-22-2021 10:36-0400 Heart rate 87 /min Zenia Molina MD Work Phone: [employer] 08-22-2021 10:36-0400 Respiratory rate 18 /min Zenia Molina MD Work Phone: [employer] 08-22-2021 10:36-0400 SaO2% (BldA) [Mass fraction] 98 % Zenia Molina MD Work Phone: [employer] 08-22-2021 10:36-0400 Systolic blood pressure 141 mm[Hg] Zenia Molina MD Work Phone: [employer] 08-22-2021 10:18-0400 Body mass index (BMI) [Ratio] 29.45 kg/m2 Zneia Molina MD Work Phone: [employer] 08-22-2021 10:18-0400 Body weight 80.29 kg Zenia Molina MD Work Phone: [employer] 12-08-2020 15:01-0400 Body temperature 98.2 [degF] Hernandez Tovar MD Work Phone: [employer] Work Phone: 12-08-2020 15:01-0400 Diastolic blood pressure 61 mm[Hg] Hernandez Tovar MD Work Phone: [employer] Work Phone: 12-08-2020 15:01-0400 Heart rate 89 /min Hernandez Tovar MD Work Phone: [employer] Work Phone: 12-08-2020 15:01-0400 Respiratory rate 20 /min Hernandez Tovar MD Work Phone: [employer] Work Phone: 12-08-2020 15:01-0400 SaO2% (BldA) [Mass fraction] 98 % Hernandez Tovar MD Work Phone: [employer] Work Phone: 12-08-2020 15:01-0400 Systolic blood pressure 122 mm[Hg] Hernandez Tovar MD Work Phone: [employer] Work Phone: 12-06-2020 23:35-0400 Body height 165.1 cm Hernandez Tovar MD Work Phone: [employer] Work Phone: 12-06-2020 23:35-0400 Body mass index (BMI) [Ratio] 30.25 kg/m2 Hernandez Tovar MD Work Phone: [employer] Work Phone: 12-06-2020 23:35-0400 Body weight 82.46 kg Hernandez Tovar MD Work Phone: [employer] Work Phone: 06-08-2019 07:22-0500 Body temperature 98.2 [degF] Hernandez Tovar MD Work Phone: [employer] Work Phone: 06-08-2019 07:22-0500 Diastolic blood pressure 42 mm[Hg] Hernandez Tovar MD Work Phone: [employer] Work Phone: 06-08-2019 07:22-0500 Heart rate 80 /min Hernandez Tovar MD Work Phone: [employer] Work Phone: 06-08-2019 07:22-0500 Respiratory rate 16 /min Hernandez Tovar MD Work Phone: [employer] Work Phone: 06-08-2019 07:22-0500 SaO2% (BldA) [Mass fraction] 96 % Hernandez Tovar MD Work Phone: [employer] Work Phone: 06-08-2019 07:22-0500 Systolic blood pressure 105 mm[Hg] Hernandez Tovar MD Work Phone: [employer] Work Phone: 06-04-2019 06:15-0500 Body height 162.6 cm Hernandez Tovar MD Work Phone: [employer] Work Phone: 06-04-2019 06:15-0500 Body mass index (BMI) [Ratio] 30.04 kg/m2 Hernandez Tovar MD Work Phone: [employer] Work Phone: 06-04-2019 06:15-0500 Body weight 79.38 kg Hernandez Tovar MD Work Phone: [employer] Work Phone: Encounters Encounter Date Encounter Type Care Provider Facility Start: 05-05-2024 ambulatory Usha X Orzech [place] Start: 01-14-2024 End: 01-14-2024 ambulatory Usha X Orzech Facility:[facility] Start: 01-14-2024 End: 01-14-2024 Patient encounter procedure [facility] Start: 11-21-2023 End: 11-21-2023 ambulatory Usha X Orzech [place] Start: 11-21-2023 End: 11-21-2023 Patient encounter procedure Usha X Orzech [facility] [place] Start: 11-19-2023 End: 11-19-2023 ambulatory Usha X Orzech Facility:[facility] [place] Start: 11-19-2023 End: 11-19-2023 Patient encounter procedure Usha X Orzech [facility] Start: 10-28-2023 ambulatory Usha Benoit Facility: [facility] Start: 10-20-2023 End: 10-20-2023 ambulatory Chet SHELL Facility:CD:[id number] Start: 07-18-2023 End: 07-18-2023 ambulatory [facility] Start: 06-25-2023 End: 06-25-2023 ambulatory Mike Yuan Other [employer] Other Start: 06-25-2023 Telephone encounter Mike Yuan [facility] Start: 06-03-2023 End: 06-04-2023 ambulatory Lesley Greene MD Facility: [facility] Start: 03-25-2023 End: 03-26-2023 [facility]ulatory [facility] Start: 02-04-2023 End: 02-04-2023 ambulatory Mike Yuan Other [employer] Other Start: 02-04-2023 Patient encounter procedure Mike Yuan [facility] Start: 12-12-2022 End: 12-12-2022 ambulatory Berta Hernandez Facility:[facility] Start: 12-12-2022 End: 12-12-2022 ambulatory IRAIS Hernandez Work Phone: [facility] Work Phone: Start: 12-12-2022 End: 12-12-2022 Patient encounter procedure COMMUNICATIONS DESIGNERDago Hernandez Work Phone: [facility] [place] Work Phone: Start: 11-02-2022 End: 11-02-2022 ambulatory Mike Yuan Other [employer] Other Start: 11-02-2022 Office outpatient vi sit 25 minutes Mike Yuan [facility] Start: 10-17-2022 End: 10-19-2022 Evaluation and management of inpatient SHAIKH Sade VARGAS Facility:[facility] Start: 10-09-2022 ambulatory NARENDRANATH LAKSHMIPATHY . Facility:[facility] Start: 09-24-2022 End: 09-25-2022 ambulatory NARENDRANATH LAKSHMIPATHY . Facility:[facility] Start: 09-18-2022 End: 09-19-2022 ambulatory NARENDRANATH LAKSHMIPATHY . Facility:[facility] Start: 07-31-2022 ambulatory NARENDRANATH LAKSHMIPATHY . Facility:[facility] Start: 07-09-2022 Encounter for other preprocedural examination DR CYDNEY REDMOND [facility] Start: 07-05-2022 End: 07-06-[address] CYDNEY REDMOND Facility:[facility] Start: 07-05-2022 End: 07-06-2022 Encounter for other preprocedural examination DR CYDNEY REDMOND Facility:[facility] Start: 06-26-2022 Encounter for preprocedural cardiovascular examination DR DOCTOR DE LA CRUZ [facility] Start: 06-26-2022 Encounter for preprocedural laboratory examination DR DOCTOR DE LA CRUZ [facility] Start: 06-22-2022 End: 06-23-[address] [...] 12-06-2021 End: 12-06-2021 Emergency department patient visit [facility] Start: 12-06-2021 End: 12-06-2021 Emergency department patient visit Skye Garcia MD Work Phone: [facility] ED Comment on above: Closed fracture of s haft of left humerus, unspecified fracture morphology, initial encounter (Primary Dx) Start: 11-23-2021 End: 11-24-[address] MIKE YUAN Facility:[facility] Start: 11-07-2021 End: 11-07-[address] MIKE YUAN Facility:[facility] Start: 09-05-2021 End: 09-06-2021 ambulatory [facility] Start: 09-05-2021 End: 09-06-2021 Subsequent hospital visit by physician Zenia Molina MD Work Phone: [email or web address] Comment on above: Post-op pain (Primar y Dx) Start: 08-22-2021 End: 08-22-2021 [facility] Start: 08-22-2021 End: 08-22-2021 Subsequent hospital visit by physician Zenia Molina MD Work Phone: [email or web address] Start: 08-02-2021 End: 08-07-2021 ambulatory ZENIA GABRIELLA [facility] Start: 08-02-2021 End: 08-04-2021 Subsequent hospital visit by physician Janae Barnhart Dr Room 2 [facility] Radiology Comment on above: Arrived Start: 12-06-2020 End: 12-08-2020 Evaluation and management of inpatient MIKE [facility] Start: 12-06-2020 End: 12-09-2020 ambulatory [facility] Start: 12-06-2020 End: 12-08-2020 Evaluation and management of inpatient Hernandez Tovar MD Work Phone: [facility] Comment on above: Post-op pain (Primar y Dx); Muscle spasm Start: 12-06-2020 End: 12-08-2020 Subsequent hospital visit by physician Hernandez Tovar MD Work Phone: [facility] Radiology Comment on above: Pain Start: 11-25-2020 End: 11-28-2020 ambulatory BELINDA MONROE [facility] Start: 11-25-2020 End: 11-27-2020 Preprocedural examination done [place] 8 [facility] Radiology Start: 11-25-2020 End: 11-27-2020 Subsequent hospital visit by physician Roc Xray Room 8 [facility] Radiology Comment on above: Radiculopathy, [...] Dup-scan xtr veins unilateral/limited study Shmuel Wyatt [employer] Work Phone: Start: 09-06-2021 GLUCOSE, WHOLE BLOOD [...] Result Start: 12-08-2020 Blood count complete automated Adjondlily Morillo [employer] Work Phone: Start: 12-08-2020 Gluc bld gluc [...] sac spi w/skull 2/3 vw Belinda Pittak [employer] Work Phone: Start: 06-08-2019 Gluc bld gluc [...] 06-04-2019 Blood typing serologic abo Susie Lee [employer] Work Phone: Start: 06-04-2019 End: 06-04-2019 Basic metabolic panel calcium total Susie Lee [employer] Work Phone: Excision of left kidney Auro ra Orzebrando History of lumbar fusion Aur ora Orzech Plan of Treatment Date Care Activity Detail Author Start: 10-14-2024 Pneumococcal 65+ years Vaccine (2 of 2 - PPSV23) Pneumococcal 65+ years Vaccine (2 of 2 - PPSV23) [employer] Start: 03-09-2024 Pneumococcal 65+ years Vaccine (3 - PPSV23 or PCV20) Pneumococcal 65+ years Vaccine (3 - PPSV23 or PCV20) [employer] Start: 09-06-2022 Creatinine measurement Creatinine monitoring [employer] Start: 09-06-2022 Potassium monitoring Potassium monitoring [employer] Start: 08-02-2022 Creatinine measurement Creatinine monitoring [employer] Start: 08-02-2022 Hemoglobin A1c measurement A1C test (Diabetic or Prediabetic) [employer] Start: 08-02-2022 Potassium monitoring Potassium monitoring [employer] Start: 01-25-2022 Influenza vaccination Flu vaccine (#1) BON DRE [employer] Start: 12-07-2021 Creatinine measurement Creatinine monitoring [employer] Work Phone: Start: 12-07-2021 Potassium monitoring Potassium monitoring [employer] Work Phone: Start: 11-25-2021 Creatinine measurement Creatinine monitoring [employer] Phone: Start: 11-25-2021 Depression Screen Depression Screen [employer] Start: 11-25-2021 Potassium monitoring Potassium monitoring [employer] Phone: Start: 09-05-2021 End: 09-05-2021 Admission to same day surgery center 09/05/2021 Surgery IP Unit Zenia Molina MD [address] [place] [address] SHOULDER TOTAL ARTHROPLASTY REVERSE [facility] OR Comment on above: SHOULDER TOTAL ARTHROPLASTY REVERSE Start: 09-05-2021 End: 09-05-2021 Arthroplasty glenohumeral joint total shoulder SHOULDER TOTAL ARTHROPLASTY REVERSE ROTATOR CUFF ARTHROPATHY, LEFT SHOULDER 09/05/2021 9:25 AM EDT [facility] [employer] [facility] Start: 09-05-2021 Subsequent hospital visit by physician 09/05/2021 Hospital Encounter IP Unit Zenia Molina MD [address] [place] [address] [facility] Start: 08-22-2021 End: 08-22-2021 Admission to same day surgery center 08/22/2021 Surgery IP Unit Zenia Molina MD [address] [place] [address] SHOULDER TOTAL ARTHROPLASTY REVERSE [facility] Comment on above: SHOULDER TOTAL ARTHROPLASTY REVERSE Start: 08-22-2021 End: 08-22-2021 Arthroplasty glenohumeral joint total shoulder SHOULDER TOTAL ARTHROPLASTY REVERSE ROTATOR CUFF REPAIR 08/22/2021 11:30 AM EDT [facility] Start: 08-22-2021 Subsequent hospital visit by physician 08/22/2021 Hospital Encounter IP Unit Zenia Molina MD [address] [place] [address] [facility] Start: 04-16-2021 COVID-19 Vaccine (3 - Booster for Pfizer series) COVID-19 Vaccine (3 - Booster for Pfizer series) [facility] Start: 01-25-2021 Influenza vaccination Flu vaccine (#1) [facility] Work Phone: Start: 12-23-2020 End: 12-23-2020 Patient encounter procedure 12/23/2020 Office Visit Neurosurgery Hernandez Tovar MD [address] [address] [phone] [facility] Neurosurgery Start: 12-16-2020 End: 12-16-2020 Patient encounter procedure 12/16/2020 Office Visit Neurosurgery Hernandez Tovar MD [address] [address] [phone] [facility] Neurosurgery Start: 12-01-2020 End: 12-01-2020 Admission to same day surgery center 12/01/2020 Surgery IP Unit Hernandez Tovar MD [address] [address] [phone] L 4-5 PLIF (POSTERIOR LUMBAR INTERBODY FUSION) [...] Hospital Encounter IP Unit Hernandez Tovar MD [address] [place] [id number] [facility] Start: 11-20-2020 Annual Wellness Visit (AWV) Annual Wellness Visit (AWV) [employer] Phone: Start: 06-05-2020 Creatinine monitoring Creatinine monitoring [employer] Phone: Start: 06-05-2020 Potassium monitoring Potassium monitoring [employer] Phone: Start: 02-19-2020 Abdominal aortic aneurysm screening AAA screen [employer] Start: 02-19-2020 Pneumococcal 65+ years Vaccine (1 of 1 - PPSV23) Pneumococcal 65+ years Vaccine (1 of 1 - PPSV23) [employer] Phone: Start: 02-19-2020 Pneumococcal 65+ years Vaccine (2 of 2 - PPSV23) Pneumococcal 65+ years Vaccine (2 of 2 - PPSV23) [employer] Phone: Start: 06-19-2019 End: 06-19-2019 Patient encounter procedure 06/19/2019 Office Visit Neurosurgery Hernandez Tovar MD [address] [place], [place] [id number] [employer] Start: 01-25-2019 Influenza vaccination Flu vaccine (#1) [employer] Phone: Start: 04-23-2016 Shingles Vaccine (2 of 3) Shingles Vaccine (2 of 3) [employer] Start: 2005 Colon cancer screen colonoscopy Colon cancer screen colonoscopy [employer] Phone: Start: 2005 Screening for malignant neoplasm of colon Colon cancer screen colonoscopy [employer] Phone: Start: 2005 Shingles Vaccine (1 of 2) Shingles Vaccine (1 of 2) [employer] Phone: Start: 02-19-2000 Screening for malignant neoplasm of colon [employer] Start: 1995 Diabetes screen Diabetes screen [employer] Phone: Start: 1995 Lipid screen Lipid screen [employer] Phone: Start: 1995 Prostate specific antigen measurement Prostate Specific Antigen (PSA) Screening or Monitoring [facility] Start: 1974 DTaP/Tdap/Td vaccine (1 - Tdap) DTaP/Tdap/Td vaccine (1 - Tdap) [employer] Start: 1973 Diabetic microalbuminuria test Diabetic microalbuminuria test [employer] Phone: Start: 1973 Diabetic retinal exam Diabetic retinal exam [employer] Start: 1973 Hepatitis C screening Hepatitis C screen [facility] Start: 1973 Urine screening for protein Diabetic microalbuminuria test [employer] Start: 1970 HIV screen HIV screen [employer] Phone: Start: 1970 HIV screening HIV screen [employer] Phone: Start: 1967 COVID-19 Vaccine (1) COVID-19 Vaccine (1) [employer] Phone: Start: 1966 DTaP/Tdap/Td vaccine (1 - Tdap) DTaP/Tdap/Td vaccine (1 - Tdap) [employer] Phone: Start: 1965 Diabetic foot examination Diabetic foot exam [employer] Start: 1965 Diabetic retinal exam Diabetic retinal exam [employer] Phone: Start: 1965 Hemoglobin A1c measurement A1C test (Diabetic or Prediabetic) [employer] Phone: Start: 1965 Lipid panel [employer] Start: 1955 Annual Wellness Visit (AWV) Annual Wellness Visit (AWV) ALEYDA ERICKSON [employer] Start: 1955 Hepatitis C screen Hepatitis C screen [employer] Phone: Start: 1955 Hepatitis C screening Hepatitis C screen [employer] Continuous pulse oximetry Pulse oximetry, continuous Respiratory Care Routine Every 4hr until discontinued starting 12/06/2020 [employer] Phone: Comment on above: Every 4hr until discontinued starting Glucose [Mass/volume ] in Serum or Plasma [employer] Phone: Comment on above: 4X Daily (AC & HS) until discontinued st arting 12/06/2020 As Needed until disc ontinued starting 12/06/2020 End: 08-22-2021 Glucose [Mass/volume] in Serum or Plasma POCT Glucose Point of Care Testing STAT One Time for 1 Occurrences starting 08/22/2021 until 08/22/2021 [employer] Comment on above: One Time for 1 Occurrences starting 07/26 until 08/22/2021 Glucose [Mass/volume ] in Serum or Plasma POCT Glucose Point of Care Testing STAT As Needed until discontinued starting 09/05/2021 [employer] Phone: Comment on above: As Needed until discontinued starting Glucose [Mass/volume ] in Serum or Plasma [employer] Phone: Comment on above: 4X Daily (AC & HS) until discontinued st arting 09/05/2021 As Needed until disc ontinued starting 09/05/2021 Incentive spirometry Incentive s pirometry Respiratory Care Routine Every 2hr while awake until discontinued starting 06/04/2019 [employer] Phone: Comment on above: Every 2hr while awake until discontinued starting 06/04/2019 Initiate Oxygen Ther apy Protocol Initiate Oxygen Therapy Protocol Respiratory Care Routine Daily until discontinued starting 06/04/2019 [employer] Phone: Comment on above: Daily until discontinued starting 2019 Oxygen therapy [Mini mum Data Set] Initiate Oxygen Therapy Protocol Respiratory Care Routine Daily until discontinued starting 12/06/2020 [employer] Phone: Comment on above: Daily until discontinued starting 2020 Oxygen therapy [Mini mum Data Set] Initiate Oxygen Therapy Protocol Respiratory Care Routine Daily until discontinued starting 09/05/2021 [employer] Phone: Comment on above: Daily until discontinued starting 2021 Pulse oximetry, continuous Pulse oximetry, continuous Respiratory Care Routine Every 4hr until discontinued starting 06/04/2019 [employer] Phone: Comment on above: Every 4hr until discontinued starting Spirometry panel Incentive ajniya metry Respiratory Care Routine Every 2hr while awake until discontinued starting 12/06/2020 [employer] Phone: Comment on above: Every 2hr while awake until discontinued starting 12/06/2020 [facility] Work Phone: Comment on above: Release Upon Ordering for 1 Occurrences starting 12/06/2020 ONE TIME for 1 Occur rences starting 06/04/2019 Immunizations Immunization Date Immunization Notes Care Provider Maria Ines [facility] 01-30-2023 influenza virus vacc ine, unspecified formulation Usha Orzech [facility] 03-17-2022 influenza virus vacc ine, unspecified formulation Usha Orzech [facility] 02-17-2021 influenza virus vacc ine, unspecified formulation Usha Orzech [facility] 11-14-2020 COVID-19, Pfizer, PF , 30mcg/0.3mL Hernandez Tovar MD Work Phone: [facility] Work Phone: 10-27-2020 COVID-19, Pfizer, PF , 30mcg/0.3mL Hernandez Tovar MD Work Phone: [facility] 02-10-2020 influenza virus vacc ine, unspecified formulation Usha Orzech [facility] 03-09-2019 influenza virus vacc ine, unspecified formulation Usha Orzech [facility] 03-09-2019 pneumococcal polysaccharide vaccine, 23 valent Usha Orzech [facility] 03-20-2017 influenza virus vacc ine, unspecified formulation Usha Orzech [facility] 03-20-2017 pneumococcal conjuga te vaccine, 13 valent Usha Orzech [facility] 02-27-2016 zoster vaccine, live Usha Orzech [facility] Payers Date Payer Category Payer [employer] ( and others) [id number] 11-09-2022 Self-pay 05-27-2022 [employer] ( and others) 05-27-2022 Medicare 05-27-2018 Medicare MEDICARE MEDICAR E PART A AND B xxxxxxxxxxx 2018-Present [phone] [place] [address] xxxxxxxxxxx [id number] 05-27-2017 [employer] ( and others) [facility] xxxxxxxxx 2017-Present xxxxxxxxx [id number] .[id number] 10-26-2011 Medicare [id number] 05-27-1959 Department of [facility] ([facility] and others) [id number] .[id number] 05-27-1959 Medicare [id number] [id number] .[id number] 05-27-1959 Medicare [id number] 1955 Unknown [id number] 2.16.840.1.971349.3.579.2 .182 1955 Unknown [id number] 2.16.840.1.117628.3.579.2 .182 1955 Unknown [id number] 2.16.840.1.530792.3.579.2 .182 1955 Unknown [id number] 2.16.840.1.505416.3.579.2 .173 1955 Unknown [id number] 2.16.840.1.046332.3.579.2 .173 1955 Unknown [id number] 2.16.840.1.901278.3.579.2 .173 1955 Unknown [id number] 2.16.840.1.833019.3.579.2 .173 1955 Unknown [id number] 2.16.840.1.614516.3.579.2 .173 1955 Unknown [id number] 2.16.840.1.794601.3.579.2 .593 1955 Unknown [id number] 2.16.840.1.465801.3.579.2 .593 1955 Unknown [id number] 2.16.840.1.217204.3.579.2 .593 1955 Unknown [id number] 2.16.840.1.648477.3.579.2 .593 1955 Unknown [id number] 2.16.840.1.183213.3.579.2 .593 1955 Unknown [id number] 2.16.840.1.543183.3.579.2 .593 1955 Unknown [id number] 2.16.840.1.820236.3.579.2 .593 1955 Unknown [id number] 2.16.840.1.800911.3.579.2 .593 1955 Unknown [id number] 2.16.840.1.067328.3.579.2 .593 1955 Unknown [id number] 2.16.840.1.238839.3.579.2 .593 1955 Unknown [id number] 2.16.840.1.940723.3.579.2 .593 1955 Unknown [id number] 2.16.840.1.302262.3.579.2 .593 1955 Unknown [id number] 2.16.840.1.181651.3.579.2 .593 1955 Unknown [id number] 2.16.840.1.274824.3.579.2 .593 1955 Unknown [id number] 2.16.840.1.472485.3.579.2 .593 1955 Unknown [id number] 2.16.840.1.724523.3.579.2 .593 1955 Unknown [id number] 2.16.840.1.690000.3.579.2 .196 1955 Unknown [id number] 2.16.840.1.376102.3.579.2 .196 1955 Unknown [id number] 2.16.840.1.951604.3.579.2 .727 1955 Unknown [id number] 2.16.840.1.158880.3.579.2 .727 1955 Unknown [id number] 2.16.840.1.846954.3.579.2 .727 1955 Unknown [id number] 2.840.1.975999.3.579.2 .727 [employer] ( and others) [id number] 2..840.1.552429.19 Medicare Medicare [id number] Unknown [id number] 2..840.1.680023.3.579.2 .531 Social History Date Type Detail Facility Start: 11-25-2020 End: 01-14-2024 Tobacco smoking status VTIS Former smoker [employer] End: 05-27-1984 History of tobacco use Current smoker [employer] Start: 11-25-2020 End: 08-22-2021 Tobacco use and exposure Never used [employer] Start: 11-25-2020 End: 12-06-2021 Alcohol intake Ex-drinker (finding) [employer] Phone: Start: 11-25-2020 History SDOH Financial 5 [employer] Phone: Start: 11-25-2020 History SDOH Food Worry 1 [employer] Phone: Start: 1955 Sex Assigned At Not on file [employer] Phone: Start: 08-12-2021 End: 12-06-2021 Exposure to SARS-CoV-2 (event) Not sure [employer] Start: 02-16-2021 Tobacco smoking stat [facility] Never smoked tobacco [employer] Sex Assigned At [facility] Start: 1955 Sex Assigned At Male F [facility] Tobacco smoking status No Smokin g Status Entered [facility] Equipment Procedure Code Equipment Code Equipment Original Text Equipment Identifier Dates Graft Canc Chip 1.0af58li 15cc - [id number] Start: 06-04-2019 Apollo-Cellular Bon e Matrix 5cc - [id number] Start: 06-04-2019 Screw Polyaxial Reline-O 2s 6.5x55mm [id number] Start: 06-04-2019 Screw Lk Reline Opn Tulip 5.5mm [id number] Start: 06-04-2019 Impl Cage Spine Mas 28 Mm Posterior [id number] Start: 06-04-2019 Impl Spine Jose Armando R volodymyr-O 5.5x75mm [id number] Start: 06-04-2019 Sys Fix Reline 0 x Conn 40 50mm 5.5lp Adj [id number] Start: 06-04-2019 Screw O Reline 60s23vl [id number] St art: 12-06-2020 Kit Bne Grft M R hbmp-2 4.2mg Inj 5ml Contain Ndl 20ga [id number] Start: 12-06-2020 Cage Spnl Lordtc 19w82l19 Mm Crv Coalesce [id number] Start: 12-06-2020 Graft Bne Sub 30 cc 1.7-10mm Canc Chip Morselized Frz Dry - [id number] Start: 12-06-2020 Screw Spnl L55mm Dia6.5mm Post Thoracolumbosacral Polyax 2s [id number] Start: 12-06-2020 Screw Spnl Dia5. 5mm Opn Tulip Sg Reline [id number] Start: 12-06-2020 Jose Armando Spnl Lordtc 5.5x90 Mm Ti Reline-O [id number] Start: 12-06-2020 Connector Spnl C rss Lo Prof Adj Reline-O 5.5 X 45-65 Mm [id number] Start: 12-06-2020 Graft Bne Sub 30 cc 1.7-10mm Canc Chip Morselized Frz Dry - [id number] Start: 12-06-2020 Baseplate Duc D ia25mm +3mm Lat Offset Augmented Aequalis - [id number] Start: 09-05-2021 Screw Bone L35mm Dia6.5mm Ti St Full Thrd Ctrl For Duc - [id number] Start: 09-05-2021 Screw Bone L30mm Dia5mm Ti St Full Thrd Periph For Duc - [id number] Start: 09-05-2021 Screw Bne Periph 5x38 Mm Shldr Reversed Ns Aequalis Perform - [id number] Start: 09-05-2021 Sphere Duc Dia3 9mm +3mm Lat Offset Reversed Aequalis - [id number] Start: 09-05-2021 Insert Shldr C D ia39mm Thk+6mm 7.5deg Reversed Aequalis - [id number] Start: 09-05-2021 Tray Hum Thk+0mm 0mm Offset Cntr Reversed Aequalis Ascend - [id number] Start: 09-05-2021 Insert Shldr C D ia39mm Thk+6mm 7.5deg Reversed Aequalis - [id number] Start: 09-05-2021 Stem Hum L74mm D ia3b 132.5deg Std Shldr Ptc Aequalis Ascend - [id number] Start: 09-05-2021 Functional Status Date Assessment Result Facility 01-14-2024 Functional Status N/A [facility] 11-21-2023 Functional Status N/A [facility] Clinical Notes 06-04-2019 to 01-14-2024 Note Date & Type Note Facility 01-14-2024 Hospital Discharge instructions Patient Education 01/14/2024 11:11:51 Epididymitis Epididymitis Epididymitis is inflammation or swelling of the epididymis. This is caused by an infection. The epididymis is a cord-like structure that is located along the top and back part of the testicle. It collects and stores sperm from the testicle. This condition can also cause pain and swelling of the testicle and scrotum. Symptoms usually start suddenly (acute epididymitis). Sometimes epididymitis starts gradually and lasts for a while (chronic epididymitis). Chronic epididymitis may be harder to treat. What are the causes? In men ages 20 40, this condition is usually caused by a bacterial infection or a sexually transmitted infection (STI), such as gonorrhea or chlamydia. In men 40 and older, this condition is usually caused by bacteria from a urinary blockage or from abnormalities in the urinary system. These can result from: Having a tube placed into the bladder (urinary catheter). Having an enlarged or inflamed prostate gland. Having recently had urinary tract surgery. Having a problem with a backward flow of urine (retrograde). In men who have a condition that weakens the body's defense system (immune system), such as human immunodeficiency virus (HIV), this condition can be caused by: Other bacteria, including tuberculosis and syphilis. Viruses. Fungi. Sometimes this condition occurs without infection. This may happen because of trauma or repetitive activities such as sports. What increases the risk? You are more likely to develop this condition if you have: Unprotected sex with more than one partner. Anal sex. Had recent surgery. A urinary catheter. Urinary problems. A suppressed immune system. What are the signs or symptoms? This condition usually begins suddenly with chills, fever, and pain behind the scrotum and in the testicle. Other symptoms include: Swelling of the scrotum, testicle, or both. Pain when ejaculating or urinating. Pain in the back or abdomen. Nausea. Itching and discharge from the penis. A frequent need to pass urine. Redness, increased warmth, and tenderness of the scrotum. How is this diagnosed? Your health care provider can diagnose this condition based on your symptoms and medical history. Your health care provider will also do a physical exam to check your scrotum and testicle for swelling, pain, and redness. You may also have other tests, including: Testing of discharge from the penis. Testing your urine for infections, such as STIs. Ultrasound to check for blood flow and inflammation. Your health care provider may test you for other STIs, including HIV. How is this treated? Treatment for this condition depends on the cause. If your condition is caused by a bacterial infection, oral antibiotic medicine may be prescribed. If the bacterial infection has spread to your blood, you may need to receive IV antibiotics. For both bacterial and nonbacterial epididymitis, you may be treated with: Rest. Elevation of the scrotum. Pain medicines. Anti-inflammatory medicines. Surgery may be needed if: You have pus buildup in the scrotum (abscess). You have epididymitis that has not responded to other treatments. Follow these instructions at home: Medicines Take saqe-gpe-kchmyux and prescription medicines only as told by your health care provider. If you were prescribed an antibiotic medicine, take it as told by your health care provider. Do not stop taking the antibiotic even if your condition improves. Sexual activity If your epididymitis was caused by an STI, avoid sexual activity until your treatment is complete. Inform your sexual partner or partners if you test positive for an STI. They may need to be treated. Do not engage in sexual activity with your partner or partners until their treatment is completed. Managing pain and swelling If directed, raise (elevate) your scrotum and apply ice. To do this: ?Put ice in a plastic bag. ?Place a small towel or pillow between your legs. ?Rest your scrotum on the pillow or towel. ?Place another towel between your skin and the plastic bag. ?Leave the ice on for 20 minutes, 2 3 times a day. ?Remove the ice if your skin turns bright red. This is very important. If you cannot feel pain, heat, or cold, you have a greater risk of damage to the area. Keep your scrotum elevated and supported while resting. Ask your health care provider if you should wear a scrotal support, such as a jockstrap. Wear it as told by your health care provider. Try taking a sitz bath to help with discomfort. This is a warm water bath that is taken while you are sitting down. The water should come up to your hips and should cover your buttocks. Do this 3 4 times per day or as told by your health care provider. General instructions Drink enough fluid to keep your urine pale yellow. Return to your normal activities as told by your health care provider. Ask your health care provider what activities are safe for you. Keep all follow-up visits. This is important. Contact a health care provider if: You have a fever. Your pain medicine is not helping. Your pain is getting worse. Your symptoms do not improve within 3 days. Summary Epididymitis is inflammation or swelling of the epididymis. This is caused by an infection. This condition can also cause pain and swelling of the testicle and scrotum. Treatment for this condition depends on the cause. If your condition is caused by a bacterial infection, oral antibiotic medicine may be prescribed. Inform your sexual partner or partners if you test positive for an STI. They may need to be treated. Do not engage in sexual activity with your partner or partners until their treatment is completed. Contact a health care provider if your symptoms do not improve within 3 days. This information is not intended to replace advice given to you by your health care provider. Make sure you discuss any questions you have with your health care provider. Document Revised: 12/20/2021 Document Reviewed: 12/20/2021 [employer] Patient Education 2022 [employer]. 01/14/2024 11:11:47 Benign Prostatic Hyperplasia Benign Prostatic Hyperplasia Benign prostatic hyperplasia (BPH) is an enlarged prostate gland that is caused by the normal aging process. The prostate may get bigger as a man gets older. The condition is not caused by cancer. The prostate is a walnut-sized gland that is involved in the production of semen. It is located in front of the rectum and below the bladder. The bladder stores urine. The urethra carries stored urine out of the body. An enlarged prostate can press on the urethra. This can make it harder to pass urine. The buildup of urine in the bladder can cause infection. Back pressure and infection may progress to bladder damage and kidney (renal) failure. What are the causes? This condition is part of the normal aging process. However, not all men develop problems from this condition. If the prostate enlarges away from the urethra, urine flow will not be blocked. If it enlarges toward the urethra and compresses it, there will be problems passing urine. What increases the risk? This condition is more likely to develop in men older than 50 years. What are the signs or symptoms? Symptoms of this condition include: Getting up often during the night to urinate. Needing to urinate frequently during the day. Difficulty starting urine flow. Decrease in size and strength of your urine stream. Leaking (dribbling) after urinating. Inability to pass urine. This needs immediate treatment. Inability to completely empty your bladder. Pain when you pass urine. This is more common if there is also an infection. Urinary tract infection (UTI). How is this diagnosed? This condition is diagnosed based on your medical history, a physical exam, and your symptoms. Tests will also be done, such as: A post-void bladder scan. This measures any amount of urine that may remain in your bladder after you finish urinating. A digital rectal exam. In a rectal exam, your health care provider checks your prostate by putting a lubricated, gloved finger into your rectum to feel the back of your prostate gland. This exam detects the size of your gland and any abnormal lumps or growths. An exam of your urine (urinalysis). A prostate specific antigen (PSA) screening. This is a blood test used to screen for prostate cancer. An ultrasound. This test uses sound waves to electronically produce a picture of your prostate gland. Your health care provider may refer you to a specialist in kidney and prostate diseases (urologist). How is this treated? Once symptoms begin, your health care provider will monitor your condition (active surveillance or watchful waiting). Treatment for this condition will depend on the severity of your condition. Treatment may include: Observation and yearly exams. This may be the only treatment needed if your condition and symptoms are mild. Medicines to relieve your symptoms, including: ?Medicines to shrink the prostate. ?Medicines to relax the muscle of the prostate. Surgery in severe cases. Surgery may include: ?Prostatectomy. In this procedure, the prostate tissue is removed completely through an open incision or with a laparoscope or robotics. ?Transurethral resection of the prostate (TURP). In this procedure, a tool is inserted through the opening at the tip of the penis (urethra). It is used to cut away tissue of the inner core of the prostate. The pieces are removed through the same opening of the penis. This removes the blockage. ?Transurethral incision (TUIP). In this procedure, small cuts are made in the prostate. This lessens the prostate's pressure on the urethra. ?Transurethral microwave thermotherapy (TUMT). This procedure uses microwaves to create heat. The heat destroys and removes a small amount of prostate tissue. ?Transurethral needle ablation (TUNA). This procedure uses radio frequencies to destroy and remove a small amount of prostate tissue. ?Interstitial laser coagulation (ILC). This procedure uses a laser to destroy and remove a small amount of prostate tissue. ?Transurethral electrovaporization (TUVP). This procedure uses electrodes to destroy and remove a small amount of prostate tissue. ?Prostatic urethral lift. This procedure inserts an implant to push the lobes of the prostate away from the urethra. Follow these instructions at home: Take cony-jjb-oosnqps and prescription medicines only as told by your health care provider. Monitor your symptoms for any changes. Contact your health care provider with any changes. Avoid drinking large amounts of liquid before going to bed or out in public. Avoid or reduce how much caffeine or alcohol you drink. Give yourself time when you urinate. Keep all follow-up visits. This is important. Contact a health care provider if: You have unexplained back pain. Your symptoms do not get better with treatment. You develop side effects from the medicine you are taking. Your urine becomes very dark or has a bad smell. Your lower abdomen becomes distended and you have trouble passing urine. Get help right away if: You have a fever or chills. You suddenly cannot urinate. You feel light-headed or very dizzy, or you faint. There are large amounts of blood or clots in your urine. Your urinary problems become hard to manage. You develop moderate to severe low back or flank pain. The flank is the side of your body between the ribs and the hip. These symptoms may be an emergency. Get help right away. Call 911. Do not wait to see if the symptoms will go away. Do not drive yourself to the hospital. Summary Benign prostatic hyperplasia (BPH) is an enlarged prostate that is caused by the normal aging process. It is not caused by cancer. An enlarged prostate can press on the urethra. This can make it hard to pass urine. This condition is more likely to develop in men older than 50 years. Get help right away if you suddenly cannot urinate. This information is not intended to replace advice given to you by your health care provider. Make sure you discuss any questions you have with your health care provider. Document Revised: 11/29/2021 Document Reviewed: 11/29/2021 [employer] Patient Education 2022 [employer]. 01/14/2024 11:11:46 Prostate Cancer Screening Prostate Cancer Screening Prostate cancer screening is testing that is done to check for the presence of prostate cancer in men. The prostate gland is a walnut-sized gland that is located below the bladder and in front of the rectum in males. The function of the prostate is to add fluid to semen during ejaculation. Prostate cancer is one of the most common types of cancer in men. Who should have prostate cancer screening? Screening recommendations vary based on age and other risk factors, as well as between the professional organizations who make the recommendations. In general, screening is recommended if: You are age 50 to 70 and have an average risk for prostate cancer. You should talk with your health care provider about your need for screening and how often screening should be done. Because most prostate cancers are slow growing and will not cause , screening in this age group is generally reserved for men who have a 10- to 15-year life expectancy. You are younger than age 50, and you have these risk factors: ?Having a father, brother, or uncle who has been diagnosed with prostate cancer. The risk is higher if your family member's cancer occurred at an early age or if you have multiple family members with prostate cancer at an early age. ?Being a male who is Black or is of [place] or sub-Saharan descent. In general, screening is not recommended if: You are younger than age 40. You are between the ages of 40 and 49 and you have no risk factors. You are 70 years of age or older. At this age, the risks that screening can cause are greater than the benefits that it may provide. If you are at high risk for prostate cancer, your health care provider may recommend that you have screenings more often or that you start screening at a younger age. How is screening for prostate cancer done? The recommended prostate cancer screening test is a blood test called the prostate-specific antigen (PSA) test. PSA is a protein that is made in the prostate. As you age, your prostate naturally produces more PSA. Abnormally high PSA levels may be caused by: Prostate cancer. An enlarged prostate that is not caused by cancer (benign prostatic hyperplasia, or BPH). This condition is very common in older men. A prostate gland infection (prostatitis) or urinary tract infection. Certain medicines such as male hormones (like testosterone) or other medicines that raise testosterone levels. A rectal exam may be done as part of prostate cancer screening to help provide information about the size of your prostate gland. When a rectal exam is performed, it should be done after the PSA level is drawn to avoid any effect on the results. Depending on the PSA results, you may need more tests, such as: A physical exam to check the size of your prostate gland, if not done as part of screening. Blood and imaging tests. A procedure to remove tissue samples from your prostate gland for testing (biopsy). This is the only way to know for certain if you have prostate cancer. What are the benefits of prostate cancer screening? Screening can help to identify cancer at an early stage, before symptoms start and when the cancer can be treated more easily. There is a small chance that screening may lower your risk of dying from prostate cancer. The chance is small because prostate cancer is a slow-growing cancer, and most men with prostate cancer from a different cause. What are the risks of prostate cancer screening? The main risk of prostate cancer screening is diagnosing and treating prostate cancer that would never have caused any symptoms or problems. This is called overdiagnosisand overtreatment. PSA screening cannot tell you if your PSA is high due to cancer or a different cause. A prostate biopsy is the only procedure to diagnose prostate cancer. Even the results of a biopsy may not tell you if your cancer needs to be treated. Slow-growing prostate cancer may not need any treatment other than monitoring, so diagnosing and treating it may cause unnecessary stress or other side effects. Questions to ask your health care provider When should I start prostate cancer screening? What is my risk for prostate cancer? How often do I need screening? What type of screening tests do I need? How do I get my test results? What do my results mean? Do I need treatment? Where to find more information The [place] [employer]: www.cancer.org [place] [employer]: www.auanet.org Contact a health care provider if: You have difficulty urinating. You have pain when you urinate or ejaculate. You have blood in your urine or semen. You have pain in your back or in the area of your prostate. Summary Prostate cancer is a common type of cancer in men. The prostate gland is located below the bladder and in front of the rectum. This gland adds fluid to semen during ejaculation. Prostate cancer screening may identify cancer at an early stage, when the cancer can be treated more easily and is less likely to have spread to other areas of the body. The prostate-specific antigen (PSA) test is the recommended screening test for prostate cancer, but it has associated risks. Discuss the risks and benefits of prostate cancer screening with your health care provider. If you are age 70 or older, the risks that screening can cause are greater than the benefits that it may provide. This information is not intended to replace advice given to you by your health care provider. Make sure you discuss any questions you have with your health care provider. Document Revised: 11/06/2021 Document Reviewed: 11/06/2021 [employer] Patient Education 2022 [employer]. Follow Up Care 11/21/2023 15:51:01 With:JERONIMO Benoit APRN, MARA Bustamante, URL Address: When: Unknown Comments:F/up in 4-6 mos with PSA [facility] 01-14-2024 Note Patient Education Oncology Prostate Cancer Screening Prostate cancer screening is testing that is done to check for the presence of prostate cancer in men. The prostate gland is a walnut-sized gland that is located below the bladder and in front of the rectum in males. The function of the prostate is to add fluid to semen during ejaculation. Prostate cancer is one of the most common types of cancer in men. Who should have prostate cancer screening? Screening recommendations vary based on age and other risk factors, as well as between the professional organizations who make the recommendations. In general, screening is recommended if: ? You are age 50 to 70 and have an average risk for prostate cancer. You should talk with your health care provider about your need for screening and how often screening should be done. Because most prostate cancers are slow growing and will not cause , screening in this age group is generally reserved for men who have a 10- to 15-year life expectancy. ? You are younger than age 50, and you have these risk factors: ? Having a father, brother, or uncle who has been diagnosed with prostate cancer. The risk is higher if your family member's cancer occurred at an early age or if you have multiple family members with prostate cancer at an early age. ? Being a male who is Black or is of [place] or sub-Saharan descent. In general, screening is not recommended if: ? You are younger than age 40. ? You are between the ages of 40 and 49 and you have no risk factors. ? You are 70 years of age or older. At this age, the risks that screening can cause are greater than the benefits that it may provide. If you are at high risk for prostate cancer, your health care provider may recommend that you have screenings more often or that you start screening at a younger age. How is screening for prostate cancer done? The recommended prostate cancer screening test is a blood test called the prostate-specific antigen (PSA) test. PSA is a protein that is made in the prostate. As you age, your prostate naturally produces more PSA. Abnormally high PSA levels may be caused by: ? Prostate cancer. ? An enlarged prostate that is not caused by cancer (benign prostatic hyperplasia, or BPH). This condition is very common in older men. ? A prostate gland infection (prostatitis) or urinary tract infection. ? Certain medicines such as male hormones (like testosterone) or other medicines that raise testosterone levels. A rectal exam may be done as part of prostate cancer screening to help provide information about the size of your prostate gland. When a rectal exam is performed, it should be done after the PSA level is drawn to avoid any effect on the results. Depending on the PSA results, you may need more tests, such as: ? A physical exam to check the size of your prostate gland, if not done as part of screening. ? Blood and imaging tests. ? A procedure to remove tissue samples from your prostate gland for testing (biopsy). This is the only way to know for certain if you have prostate cancer. What are the benefits of prostate cancer screening? ? Screening can help to identify cancer at an early stage, before symptoms start and when the cancer can be treated more easily. ? There is a small chance that screening may lower your risk of dying from prostate cancer. The chance is small because prostate cancer is a slow-growing cancer, and most men with prostate cancer from a different cause. What are the risks of prostate cancer screening? The main risk of prostate cancer screening is diagnosing and treating prostate cancer that would never have caused any symptoms or problems. This is called overdiagnosisand overtreatment. PSA screening cannot tell you if your PSA is high due to cancer or a different cause. A prostate biopsy is the only procedure to diagnose prostate cancer. Even the results of a biopsy may not tell you if your cancer needs to be treated. Slow-growing prostate cancer may not need any treatment other than monitoring, so diagnosing and treating it may cause unnecessary stress or other side effects. Questions to ask your health care provider ? When should I start prostate cancer screening? ? What is my risk for prostate cancer? ? How often do I need screening? ? What type of screening tests do I need? ? How do I get my test results? ? What do my results mean? ? Do I need treatment? Where to find more information ? The [place] [employer]: www.cancer.org ? [place] [employer]: www.auanet.org Contact a health care provider if: ? You have difficulty urinating. ? You have pain when you urinate or ejaculate. ? You have blood in your urine or semen. ? You have pain in your back or in the area of your prostate. Summary ? Prostate cancer is a common type of cancer in men. The prostate gland is located below the bladder and in front of the rectum. (more content not included)... [facility] 11-21-2023 Hospital Discharge instructions Patient Education 11/21/2023 16:24:10 Epididymitis Epididymitis Epididymitis is inflammation or swelling of the epididymis. This is caused by an infection. The epididymis is a cord-like structure that is located along the top and back part of the testicle. It collects and stores sperm from the testicle. This condition can also cause pain and swelling of the testicle and scrotum. Symptoms usually start suddenly (acute epididymitis). Sometimes epididymitis starts gradually and lasts for a while (chronic epididymitis). Chronic epididymitis may be harder to treat. What are the causes? In men ages 20 40, this condition is usually caused by a bacterial infection or a sexually transmitted infection (STI), such as gonorrhea or chlamydia. In men 40 and older, this condition is usually caused by bacteria from a urinary blockage or from abnormalities in the urinary system. These can result from: Having a tube placed into the bladder (urinary catheter). Having an enlarged or inflamed prostate gland. Having recently had urinary tract surgery. Having a problem with a backward flow of urine (retrograde). In men who have a condition that weakens the body's defense system (immune system), such as human immunodeficiency virus (HIV), this condition can be caused by: Other bacteria, including tuberculosis and syphilis. Viruses. Fungi. Sometimes this condition occurs without infection. This may happen because of trauma or repetitive activities such as sports. What increases the risk? You are more likely to develop this condition if you have: Unprotected sex with more than one partner. Anal sex. Had recent surgery. A urinary catheter. Urinary problems. A suppressed immune system. What are the signs or symptoms? This condition usually begins suddenly with chills, fever, and pain behind the scrotum and in the testicle. Other symptoms include: Swelling of the scrotum, testicle, or both. Pain when ejaculating or urinating. Pain in the back or abdomen. Nausea. Itching and discharge from the penis. A frequent need to pass urine. Redness, increased warmth, and tenderness of the scrotum. How is this diagnosed? Your health care provider can diagnose this condition based on your symptoms and medical history. Your health care provider will also do a physical exam to check your scrotum and testicle for swelling, pain, and redness. You may also have other tests, including: Testing of discharge from the penis. Testing your urine for infections, such as STIs. Ultrasound to check for blood flow and inflammation. Your health care provider may test you for other STIs, including HIV. How is this treated? Treatment for this condition depends on the cause. If your condition is caused by a bacterial infection, oral antibiotic medicine may be prescribed. If the bacterial infection has spread to your blood, you may need to receive IV antibiotics. For both bacterial and nonbacterial epididymitis, you may be treated with: Rest. Elevation of the scrotum. Pain medicines. Anti-inflammatory medicines. Surgery may be needed if: You have pus buildup in the scrotum (abscess). You have epididymitis that has not responded to other treatments. Follow these instructions at home: Medicines Take pdnw-thn-rnudjxy and prescription medicines only as told by your health care provider. If you were prescribed an antibiotic medicine, take it as told by your health care provider. Do not stop taking the antibiotic even if your condition improves. Sexual activity If your epididymitis was caused by an STI, avoid sexual activity until your treatment is complete. Inform your sexual partner or partners if you test positive for an STI. They may need to be treated. Do not engage in sexual activity with your partner or partners until their treatment is completed. Managing pain and swelling If directed, raise (elevate) your scrotum and apply ice. To do this: ?Put ice in a plastic bag. ?Place a small towel or pillow between your legs. ?Rest your scrotum on the pillow or towel. ?Place another towel between your skin and the plastic bag. ?Leave the ice on for 20 minutes, 2 3 times a day. ?Remove the ice if your skin turns bright red. This is very important. If you cannot feel pain, heat, or cold, you have a greater risk of damage to the area. Keep your scrotum elevated and supported while resting. Ask your health care provider if you should wear a scrotal support, such as a jockstrap. Wear it as told by your health care provider. Try taking a sitz bath to help with discomfort. This is a warm water bath that is taken while you are sitting down. The water should come up to your hips and should cover your buttocks. Do this 3 4 times per day or as told by your health care provider. General instructions Drink enough fluid to keep your urine pale yellow. Return to your normal activities as told by your health care provider. Ask your health care provider what activities are safe for you. Keep all follow-up visits. This is important. Contact a health care provider if: You have a fever. Your pain medicine is not helping. Your pain is getting worse. Your symptoms do not improve within 3 days. Summary Epididymitis is inflammation or swelling of the epididymis. This is caused by an infection. This condition can also cause pain and swelling of the testicle and scrotum. Treatment for this condition depends on the cause. If your condition is caused by a bacterial infection, oral antibiotic medicine may be prescribed. Inform your sexual partner or partners if you test positive for an STI. They may need to be treated. Do not engage in sexual activity with your partner or partners until their treatment is completed. Contact a health care provider if your symptoms do not improve within 3 days. This information is not intended to replace advice given to you by your health care provider. Make sure you discuss any questions you have with your health care provider. Document Revised: 12/20/2021 Document Reviewed: 12/20/2021 [employer] Patient Education 2022 [employer] 11/21/2023 16:24:08 Benign Prostatic Hyperplasia Benign Prostatic Hyperplasia Benign prostatic hyperplasia (BPH) is an enlarged prostate gland that is caused by the normal aging process. The prostate may get bigger as a man gets older. The condition is not caused by cancer. The prostate is a walnut-sized gland that is involved in the production of semen. It is located in front of the rectum and below the bladder. The bladder stores urine. The urethra carries stored urine out of the body. An enlarged prostate can press on the urethra. This can make it harder to pass urine. The buildup of urine in the bladder can cause infection. Back pressure and infection may progress to bladder damage and kidney (renal) failure. What are the causes? This condition is part of the normal aging process. However, not all men develop problems from this condition. If the prostate enlarges away from the urethra, urine flow will not be blocked. If it enlarges toward the urethra and compresses it, there will be problems passing urine. What increases the risk? This condition is more likely to develop in men older than 50 years. What are the signs or symptoms? Symptoms of this condition include: Getting up often during the night to urinate. Needing to urinate frequently during the day. Difficulty starting urine flow. Decrease in size and strength of your urine stream. Leaking (dribbling) after urinating. Inability to pass urine. This needs immediate treatment. Inability to completely empty your bladder. Pain when you pass urine. This is more common if there is also an infection. Urinary tract infection (UTI). How is this diagnosed? This condition is diagnosed based on your medical history, a physical exam, and your symptoms. Tests will also be done, such as: A post-void bladder scan. This measures any amount of urine that may remain in your bladder after you finish urinating. A digital rectal exam. In a rectal exam, your health care provider checks your prostate by putting a lubricated, gloved finger into your rectum to feel the back of your prostate gland. This exam detects the size of your gland and any abnormal lumps or growths. An exam of your urine (urinalysis). A prostate specific antigen (PSA) screening. This is a blood test used to screen for prostate cancer. An ultrasound. This test uses sound waves to electronically produce a picture of your prostate gland. Your health care provider may refer you to a specialist in kidney and prostate diseases (urologist). How is this treated? Once symptoms begin, your health care provider will monitor your condition (active surveillance or watchful waiting). Treatment for this condition will depend on the severity of your condition. Treatment may include: Observation and yearly exams. This may be the only treatment needed if your condition and symptoms are mild. Medicines to relieve your symptoms, including: ?Medicines to shrink the prostate. ?Medicines to relax the muscle of the prostate. Surgery in severe cases. Surgery may include: ?Prostatectomy. In this procedure, the prostate tissue is removed completely through an open incision or with a laparoscope or robotics. ?Transurethral resection of the prostate (TURP). In this procedure, a tool is inserted through the opening at the tip of the penis (urethra). It is used to cut away tissue of the inner core of the prostate. The pieces are removed through the same opening of the penis. This removes the blockage. ?Transurethral incision (TUIP). In this procedure, small cuts are made in the prostate. This lessens the prostate's pressure on the urethra. ?Transurethral microwave thermotherapy (TUMT). This procedure uses microwaves to create heat. The heat destroys and removes a small amount of prostate tissue. ?Transurethral needle ablation (TUNA). This procedure uses radio frequencies to destroy and remove a small amount of prostate tissue. ?Interstitial laser coagulation (ILC). This procedure uses a laser to destroy and remove a small amount of prostate tissue. ?Transurethral electrovaporization (TUVP). This procedure uses electrodes to destroy and remove a small amount of prostate tissue. ?Prostatic urethral lift. This procedure inserts an implant to push the lobes of the prostate away from the urethra. Follow these instructions at home: Take ywje-dps-sksoqse and prescription medicines only as told by your health care provider. Monitor your symptoms for any changes. Contact your health care provider with any changes. Avoid drinking large amounts of liquid before going to bed or out in public. Avoid or reduce how much caffeine or alcohol you drink. Give yourself time when you urinate. Keep all follow-up visits. This is important. Contact a health care provider if: You have unexplained back pain. Your symptoms do not get better with treatment. You develop side effects from the medicine you are taking. Your urine becomes very dark or has a bad smell. Your lower abdomen becomes distended and you have trouble passing urine. Get help right away if: You have a fever or chills. You suddenly cannot urinate. You feel light-headed or very dizzy, or you faint. There are large amounts of blood or clots in your urine. Your urinary problems become hard to manage. You develop moderate to severe low back or flank pain. The flank is the side of your body between the ribs and the hip. These symptoms may be an emergency. Get help right away. Call 911. Do not wait to see if the symptoms will go away. Do not drive yourself to the hospital. Summary Benign prostatic hyperplasia (BPH) is an enlarged prostate that is caused by the normal aging process. It is not caused by cancer. An enlarged prostate can press on the urethra. This can make it hard to pass urine. This condition is more likely to develop in men older than 50 years. Get help right away if you suddenly cannot urinate. This information is not intended to replace advice given to you by your health care provider. Make sure you discuss any questions you have with your health care provider. Document Revised: 11/29/2021 Document Reviewed: 11/29/2021 [employer] Patient Education 2022 [employer]. 11/21/2023 16:24:07 Acute Urinary Retention, Male Acute Urinary Retention, Male Acute urinary retention is a condition in which a person is unable to pass urine or can only pass a little urine. This condition can happen suddenly and last for a short time. If left untreated, it can become long-term (chronic) and result in kidney damage or other serious complications. What are the causes? This condition may be caused by: Obstruction or narrowing of the tube that drains the bladder (urethra). This may be caused by surgery, problems with nearby organs, or injury to the bladder or urethra. Problems with the nerves in the bladder. Tumors in the area of the pelvis, bladder, or urethra. Certain medicines. Bladder or urinary tract infection. Constipation. What increases the risk? This condition is more likely to develop in older men. As men age, their prostate may become larger and may start to press or squeeze on the bladder or the urethra. Other chronic health conditions can increase the risk of acute urinary retention. These include: Diseases such as multiple sclerosis. Spinal cord injuries. Diabetes. Degenerative cognitive conditions, such as delirium or dementia. Psychological conditions. A man may hold his urine due to trauma or because he does not want to use the bathroom. What are the signs or symptoms? Symptoms of this condition include: Trouble urinating. Pain in the lower abdomen. How is this diagnosed? This condition is diagnosed based on a physical exam and your medical history. You may also have other tests, including: An ultrasound of the bladder or kidneys or both. Blood tests. A urine analysis. Additional tests may be needed, such as a CT scan, MRI, and kidney or bladder function tests. How is this treated? Treatment for this condition may include: Medicines. Placing a thin, sterile tube (catheter) into the bladder to drain urine out of the body. This is called an indwelling urinary catheter. After it is inserted, the catheter is held in place with a small balloon that is filled with sterile water. Urine drains from the catheter into a collection bag outside of the body. Behavioral therapy. Treatment for other conditions. If needed, you may be treated in the hospital for kidney function problems or to manage other complications. Follow these instructions at home: Medicines Take lzkx-oji-ugzgvpt and prescription medicines only as told by your health care provider. Avoid certain medicines, such as decongestants, antihistamines, and some prescription medicines. Do not take any medicine unless your health care provider approves. If you were prescribed an antibiotic medicine, take it as told by your health care provider. Do not stop using the antibiotic even if you start to feel better. General instructions Do not use any products that contain nicotine or tobacco. These products include cigarettes, chewing tobacco, and vaping devices, such as e-cigarettes. If you need help quitting, ask your health care provider. Drink enough fluid to keep your urine pale yellow. If you have an indwelling urinary catheter, follow the instructions from your health care provider. Monitor any changes in your symptoms. Tell your health care provider about any changes. If instructed, monitor your blood pressure at home. Report changes as told by your health care provider. Keep all follow-up visits. This is important. Contact a health care provider if: You have uncomfortable bladder contractions that you cannot control (spasms). You leak urine with the spasms. Get help right away if: You have chills or a fever. You have blood in your urine. You have a catheter and the following happens: ?Your catheter stops draining urine. ?Your catheter falls out. Summary Acute urinary retention is a condition in which a person is unable to pass urine or can only pass a little urine. If left untreated, this condition can result in kidney damage or other serious complications. An enlarged prostate may cause this condition. As men age, their prostate gland may become larger and may press or squeeze on the bladder or the urethra. Treatment for this condition may include medicines and placement of an indwelling urinary catheter. Monitor any changes in your symptoms. Tell your health care provider about any changes. This information is not intended to replace advice given to you by your health care provider. Make sure you discuss any questions you have with your health care provider. Document Revised: 02/01/2021 Document Reviewed: 02/01/2021 [employer] Patient Education 2022 [employer]. Follow Up Care 11/19/2023 07:29:00 With:JERONIMO Benoit APRN, Usha Bolton, MARA, URL Address: When: Unknown Comments:8 wk w/ P[facility] 11-21-2023 Note Patient Education Urology Epididymitis Epididymitis is inflammation or swelling of the epididymis. This is caused by an infection. The epididymis is a cord-like structure that is located along the top and back part of the testicle. It collects and stores sperm from the testicle. This condition can also cause pain and swelling of the testicle and scrotum. Symptoms usually start suddenly (acute epididymitis). Sometimes epididymitis starts gradually and lasts for a while (chronic epididymitis). Chronic epididymitis may be harder to treat. What are the causes? In men ages 20?40, this condition is usually caused by a bacterial infection or a sexually transmitted infection (STI), such as gonorrhea or chlamydia. In men 40 and older, this condition is usually caused by bacteria from a urinary blockage or from abnormalities in the urinary system. These can result from: ? Having a tube placed into the bladder (urinary catheter). ? Having an enlarged or inflamed prostate gland. ? Having recently had urinary tract surgery. ? Having a problem with a backward flow of urine (retrograde). In men who have a condition that weakens the body's defense system (immune system), such as human immunodeficiency virus (HIV), this condition can be caused by: ? Other bacteria, including tuberculosis and syphilis. ? Viruses. ? Fungi. Sometimes this condition occurs without infection. This may happen because of trauma or repetitive activities such as sports. What increases the risk? You are more likely to develop this condition if you have: ? Unprotected sex with more than one partner. ? Anal sex. ? Had recent surgery. ? A urinary catheter. ? Urinary problems. ? A suppressed immune system. What are the signs or symptoms? This condition usually begins suddenly with chills, fever, and pain behind the scrotum and in the testicle. Other symptoms include: ? Swelling of the scrotum, testicle, or both. ? Pain when ejaculating or urinating. ? Pain in the back or abdomen. ? Nausea. ? Itching and discharge from the penis. ? A frequent need to pass urine. ? Redness, increased warmth, and tenderness of the scrotum. How is this diagnosed? Your health care provider can diagnose this condition based on your symptoms and medical history. Your health care provider will also do a physical exam to check your scrotum and testicle for swelling, pain, and redness. You may also have other tests, including: ? Testing of discharge from the penis. ? Testing your urine for infections, such as STIs. ? Ultrasound to check for blood flow and inflammation. Your health care provider may test you for other STIs, including HIV. How is this treated? Treatment for this condition depends on the cause. If your condition is caused by a bacterial infection, oral antibiotic medicine may be prescribed. If the bacterial infection has spread to your blood, you may need to receive IV antibiotics. For both bacterial and nonbacterial epididymitis, you may be treated with: ? Rest. ? Elevation of the scrotum. ? Pain medicines. ? Anti-inflammatory medicines. Surgery may be needed if: ? You have pus buildup in the scrotum (abscess). ? You have epididymitis that has not responded to other treatments. Follow these instructions at home: Medicines ? Take bvrl-gtw-hckjlpx and prescription medicines only as told by your health care provider. ? If you were prescribed an antibiotic medicine, take it as told by your health care provider. Do not stop taking the antibiotic even if your condition improves. Sexual activity ? If your epididymitis was caused by an STI, avoid sexual activity until your treatment is complete. ? Inform your sexual partner or partners if you test positive for an STI. They may need to be treated. Do not engage in sexual activity with your partner or partners until their treatment is completed. Managing pain and swelling ? If directed, raise (elevate) your scrotum and apply ice. To do this: ? Put ice in a plastic bag. ? Place a small towel or pillow between your legs. ? Rest your scrotum on the pillow or towel. ? Place another towel between your skin and the plastic bag. ? Leave the ice on for 20 minutes, 2?3 times a day. ? Remove the ice if your skin turns bright red. This is very important. If you cannot feel pain, heat, or cold, you have a greater risk of damage to the area. ? Keep your scrotum elevated and supported while resting. Ask your health care provider if you should wear a scrotal support, such as a jockstrap. Wear it as told by your health care provider. ? Try taking a sitz bath to help with discomfort. This is a warm water bath that is taken while you are sitting down. The water should come up to your hips and should cover your buttocks. Do this 3?4 times per day or as told by your health care provider. General instructions ? Drink enough fluid to keep (more content not included)... [facility] 07-18-2023 Note [facility] [...] than his usual. He was admitted to [facility] back in September 2022 for falls/orthostatic [...] and at bedtime., Disp: , Rfl: HYDROcodone-acetaminophen (Portland) 5-325 mg tablet, take 1 tablet by [...] effusion. The cardiomediastina (more content not included)... [facility] 07-18-2023 Note Patient here for 1 y ear follow up CAD, RBBB, and hypertension. Had shoulder surgery after last apt. Says he has chest discomfort and SOB w/ stairs, but this is no different than his usual. He was admitted to [facility] back in September 2022 for falls/orthostatic syncope. Had echo and carotid duplex. Review of Systems Cardiovascular: Positive for chest pain ( discomort with stairs ) and dyspnea on exertion. Musculoskeletal: Positive for arthritis, back pain, falls, joint pain and muscle weakness. Neurological: Positive for dizziness, light-headedness, loss of balance and weakness. All other systems reviewed and are negative. [facility] 02-04-2023 Evaluation note Encounter Date Diagnosis [...] and electrolytes. Pt agrees to neurology referral. [facility] Other 06-09-2023 Evaluation note* Encounter Date Diagnosis [...] and call next week w home readings. [employer] [facility] Other 04-25-2023 NoteCONSULTATION CONSULTATION DATE: 09/18/2022 TO: [...] our patients to inform us about any rbwy-fgf-bptcwzx medications or herbal remedies/nutritional supplements/alternative remedies. 2. [...] treatment options with their primary care provider.[id number] Note CONSULTATION CONSULTATION DATE: 03/01/2022 This is [...] 75 mg b.i.d., Lyrica 100 mg t.i.d., Portland 5/325 b.i.d. The patient is also under the care of an orthopedic physician in [place] and received a right shoulder injection today. [...] decrease his Lyrica to b.i.d. due to OBSTETRICS TECH somnolence. He is encouraged to take his vitamins and to continue with daily exercises. The patient agreed to move forward with the procedure and will be followed in the clinic thereafter.The [place] [address]-01-2022 NoteCONSULTATION CONSULTATION DATE: 01/25/2022 HISTORY OF PRESENT [...] in a sling and is awaiting the [facility] to send a referral to physical therapy. He does complain of diffuse lower back pain today that is no-radiating in nature. His most recent imaging does show bilateral foraminal narrowing as well as multilevel disc arthropathy. The patient reports all activity aggravates his pain. He is 8/10 today. Medications include Portland 5/325 b.i.d., Lyrica 100 mg t.i.d., duloxetine [...] discuss with the patient regarding seeing a heavy threader, and he states he believes he has seen a heavy threader at the [facility] in the past. In regards to his back, I explained the benefits of the rhizotomy series and which the patient agrees to try. We will move forward with the #1 bilateral MBB to L1, L2 and L3, L4 which is above the level of his fusion. Patient will be brought to the clinic post procedure and agrees to move forward.[facility] [id number] Hospital Discharge instructions* Instructions* Skye Garcia MD - 12/06/2021 Remain in splint. Tylenol as needed for pain. Portland in place Tylenol for pain not controlled with Tylenol. With orthopedics tomorrow. Return immediately if you develop any worsening redness pain swelling numbness or tingling of your left forearm hands or fingers or any other acute concerns * Attachments The following attachments cannot be sent through Care Everywhere. * Arm Fracture (Belarusian) documented [facility] [employer] Work Phone: 1([phone]) 176-644806-30-2022 NoteCONSULTATION CONSULTATION DATE: 11/23/2021 This is a [...] Current medications include Diclofenac 50 mg b.i.d., [place] 5/325 b.i.d., Lyrica 100 mg t.i.d., amitriptyline [...] of care and all questions were answered. [facility] Signed and Approved by: DEVAN MAGALLANES . 11/30/2021 16:28:00[facility]04-13-2022 History of Present illness Narrative* Claudia Dasilva RN - 09/06/2021 2:01 PM EDT Reviewed discharge instructions with patient. All questions answered at this time. Patient waiting for ride, then will leave via private auto at discharge. * Brigid Lanza PTA - 09/06/2021 1:25 PM EDT Physical Therapy Facility/Department: [facility] Daily Treatment Note NAME: [...] has a past medical history of A-fib ([facility]), CAD (coronary artery disease), Chronic back pain, Chronic headaches, Diabetes ([facility]), Hypertension, Restless leg syndrome, Rheumatoid arthritis ([facility]), S/P reverse total shoulder arthroplasty, [...] 09/06/2021 1:21 PM EDT Occupational Therapy Facility/Department: [facility] Daily Treatment Note NAME: [...] has a past medical history of A-fib ([facility]), CAD (coronary artery disease), Chronic back pain, Chronic headaches, Diabetes ([facility]), Hypertension, Restless leg syndrome, Rheumatoid arthritis ([facility]), S/P reverse total shoulder arthroplasty, [...] forearm, wrist and digit AROM and light deputy sheriff generalist/bailiff strengthening. Therapy Time Individual Concurrent Group Co-treatment Time In 1250 Time Out 1317 Minutes 27 Kristy Louis OT * Kristy Louis OT - 09/06/2021 10:42 AM EDT [facility] Inpatient/Observation/Outpatient Rehabilitation Date: 09/06/2021 Patient Name: Deondre Lr [] Inpatient Acute/Observation [] Outpatient : 1955 [] Pt no showed for scheduled appointment [x] Pt refused/declined therapy at this time due to: Not wanting to get out of bed, requested to come back after lunch for dressing before discharge. [] Pt cancelled due to: [] No Reason Given [] Sick/ill [] Other: Therapist/Army Senior Officer will attempt to see this patient, at our earliest opportunity. Kristy Louis OT Date: 09/06/2021 * Brigid Lanza, CASTABLES WORKER - 09/06/2021 10:18 AM EDT Physical Therapy Facility/Department: 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 Reports eating once daily. [...] No discharge needs at this time Contact: [phone] * Shmuel Wyatt APRN - INSURANCE AUDITOR - 09/06/2021 7:26 AM EDT Department of [...] Physical therapy. Has outpatient PT scheduled at [facility] 5: D/C Plan: Home 6: Continue Pain Control. Portland 5-325, 1-2 tabs every 4 hours prn [...] plan is home with out-patient therapy at [facility]. This was set up prior to surgery. He does not have advance directives but his would make decisions if he could not. SONG AND DANCE PERFORMER to monitor andassist with any needs or concerns as they arise. RADHA Fritz * Luz Marina Kerr RN - 09/05/2021 2:33 PM EDT Hospitalist consult called to Dr. Jenkins at this time. * Luz Marina Kerr RN - 09/05/2021 1:15 PM EDT Patient arrived on floor at this time, [facility]. Report received at bedside from [...] 09/05/2021 1:05 PM EDT [facility] and report given [...] to low back. Patient visibly more comfortable. JUYD Dawkins spoke with patient regarding not being [...] and shown to . documented in this [facility] Phone: 1(851) 960-195304-13-2022 Note [facility] Vascular Lower Extremities DVT Study Procedure Patient Name GERONIMO Koroma Date of Study 09/06/2021 Date of 1955 Gender Male Age 66 year(s) Race Room Number 0302 Corporate ID [id number] # Patient Acct [id number] # MR # [id number] Health Informatics Instructor Zunilda Morales RVT Interpreting Physician Tad Mack Referring Shmuel Wyatt, Referring Physician Nurse IRAIS-INSURANCE AUDITOR Practitioner Additional Comments Results were faxed to the floor 09/06/2021 @ 0996. Procedure Type of Study: Veins: Lower Extremities [...] !Phasic! ! ! + (more content not included)...[facility] [id number] Hospital Discharge instructions* Discharge Instr - Activity* [...] call Dr. Molina on his cell phone, [phone]. 10. Follow-up with your surgeon and physical [...] daily for 4 weeks. documented in this [facility] Phone: [phone] 202-411903-29-2022 History of Present illness Narrative* Elena Clayton [...] EST Call received from RAEANN Cheung at [facility] [place]. Requesting results of chest x- ray done 08/02/21 to complete medical clearance. Skye states she gave the patient the contact information for appointment specialist and also states she has notified Julieta at Dr. Molina's office of these events. * Marta Ray RN - 08/03/2021 12:23 PM EST Patient instructed to contact [facility] regarding follow up with a appointment specialist. Patient states he has thenumber and will reach out today. * Marta Ray RN - 08/03/2021 10:59 AM EST Attempted to contact patient regarding cardiology follow up needed prior to surgery on 08/22/21. Left message for patient to return call to [facility]. documented in this [facility] Phone: 1(870) 400-467203-29-2022 Hospital Discharge instructions* Instructions* Zunilda Cool RN [...] activities for 24 hours. documented in this encounterSt. [facility] CampusQuality Practice Phone: [phone]) 206-655407-15-2021 Hospital Discharge instructions* Discharge Instr - Activity* [...] at most local grocery stores, pharmacies, and [employer]-stores. If you have any questions about your [...] your physician 11) Call your doctor at [phone] for an appointment (or follow up as [...] call OFFICE. The 24- hour phone is [phone] 13) If you are unable to contact [...] Care Everywhere. * Lumbar Spinal Fusion: Post-op (Belarusian) * cephalexin (Belarusian) * fentanyl transdermal (skin patch) (Belarusian) * acetaminophen and hydrocodone (Belarusian) * diazepam (oral) (Belarusian) * senna (Belarusian) documented in this [facility] CenterPay[facility] Work Phone: [phone] 463-372507-15-2021 History of Present illness Narrative* Born, Grover Rainey, COMMUNICATIONS DESIGNER - INSURANCE AUDITOR - 12/08/2020 8:42 AM EDT Progress Note Date:12/08/2020 [facility] Patient Name:Deondre Lr Date of :1955 Age:65 [...] he sees a pain management doctor in [place], [place]. Patient notes that his pain management [...] (65 y.o.) CODE STATUS: Full Code Room: [place] [address] Date of Service: 12/07/2020 Patient Diagnosis(es): Pseudoarthrosis [...] 10/28/2013 Past Medical History: Diagnosis Date A-fib ([facility]) CAD (coronary artery disease) Chronic back pain Chronic headaches Diabetes ([facility]) Hypertension Restless leg syndrome Rheumatoid arthritis ([facility]) Sleep apnea Past Surgical History: Procedure Laterality Date LUMBAR FUSION N/A 06/04/2019 L 4-5, L5-S1 DECOMPRESSION L 4-5, L5-S1 POSTEROLATERAL FUSION L5-S1 PLIF performed by [facility] OR LUMBAR FUSION N/A 12/06/2020 L3-4, L4-5 POSTERIOR LUMBAR INTERBODY FUSION performed by Hernandez Tovar MD at [facility] OR SHOULDER SURGERY SPINE SURGERY Restrictions Restrictions/Precautions: [...] Assistance: Independent (cane) Transfer Assistance: Independent Active Inclined Railway Operator: Yes Occupation: Retired Type of occupation: multiple [...] old man from home who presents to [facility] with the above deficits s/p planned [...] 14 minutes Electronically signed by: FE Drummond/Jaclyn, OTR/L 12/07/2020, 10:10 AM * Enma Townsend, PT - 12/07/2020 10:07 AM EDT Physical Therapy Med Surg Initial Assessment Facility/Department: [address] NEURO Room: N222/N222- NAME: Deondre Lr : 1955 (65 y.o.) [...] 10/28/2013 Past Medical History: Diagnosis Date A-fib ([facility]) CAD (coronary artery disease) Chronic back pain Chronic headaches Diabetes ([facility]) Hypertension Restless leg syndrome Rheumatoid arthritis ([facility]) Sleep apnea Past Surgical History: Procedure Laterality Date LUMBAR FUSION N/A 06/04/2019 L 4-5, L5-S1 DECOMPRESSION L 4-5, L5-S1 POSTEROLATERAL FUSION L5-S1 PLIF performed by Hernandez [facility] OR LUMBAR FUSION N/A 12/06/2020 L3-4, L4-5 POSTERIOR LUMBAR INTERBODY FUSION performed by Hernandez Tovar MD at [facility] OR SHOULDER SURGERY SPINE SURGERY Chart Reviewed: [...] Assistance: Independent (cane) Transfer Assistance: Independent Active Inclined Railway Operator: Yes Occupation: Retired Type of occupation: multiple [...] 1: Pt to complete HEP with indep terminal operations supervisor goals terminal operations supervisor goal 1: Pt to complete bed mobility with indep terminal operations supervisor goal 2: Pt to complete transfers with indep terminal operations supervisor goal 3: Pt to ambulate 50-150ft with LRD and indep terminal operations supervisor goal 4: Pt to manage 3 steps with HR and indep AMPA (6 CLICK) BASIC MOBILITY AM-PAC Inpatient Mobility Raw Score : 18 Therapy Time: Individual Time In 08 Time Out 09 Minutes 24 Timed Code Treatment Minutes: 8 [...] to accomplish the task * Zan Arrieta [facility] - 12/06/2020 3:52 PM EDT PHARMACY NOTE Deondre Lr was ordered adalimumab. Per the [facility] Formulary Committee Policy, this medication is non-formulary and not stocked by pharmacy. The medication can be reordered at discharge. Zan Arrieta, PharmD, BCPS, MHA Staff Pharmacist 12/06/2020 3:52 PM documented in this [facility] CenterZetta[facility] [employer] Phone: [phone]) 607-140507-14-2021 NoteFLUORO FOR SURGICAL PROCEDURES : 12/06/2020 10:30 AM CLINICAL HISTORY: R52 Pain ICD10. COMPARISON: None available. Intraoperative fluoroscopy was provided for Dr. Guy melendez. A total of 71.7 seconds of fluoroscopy was used, with 4 fluoroscopic stills saved. No diagnostic images were obtained. Please see Dr. Tovar surgical notes for completeness.[facility] [employer] Phone: [phone]) 236-710707-13-2021 NoteFLUORO FOR SURGICAL PROCEDURES : 12/06/2020 10:30 AM CLINICAL HISTORY: R52 Pain ICD10. COMPARISON: None available. Intraoperative fluoroscopy was provided for Dr. Guy melendez. A total of 71.7 seconds of fluoroscopy was used, with 4 fluoroscopic stills saved. No diagnostic images were obtained. Please see Dr. Tovar surgical notes for completeness. Interpreted by: Cirilo Moreland MD Signed by: Cirilo Moreland MD 12/07/20 Final [facility]01-11-2020 History of Present illness Narrative* Nathan Tavares PTA - 06/06/2019 11:53 AM EST Physical Therapy Med Surg Daily Treatment Note Facility/Department: [address] NEURO Room: N222/N222-01 NAME: Deondre Lr [...] L5-S1 PLIF performed by Hernandez Tovar, Fanny [facility] OR SHOULDER SURGERY SPINE SURGERY Restrictions Restrictions/Precautions: [...] benefit from continued therapy after discharge Goals nursing home goals nursing home goal 1: pt to be indep with bed mobility utilizing log roll nursing home goal 2: pt to be indep with transfers nursing home goal 3: pt to ambulate >100 ft with WW vs cane mod indep terminal operations supervisor goal 4: pt to navigate 4 steps [...] 14 Gait: 11 BM/Trsf: 3 Nathan Tavares, CASTABLES WORKER, 06/06/19 at 11:53 AM * Hernandez Tovar MD - 06/06/2019 9:02 AM EST Patient: Deondre Lr Unit/Bed: N222/N222-01 Date of : 1955 Acct: [id number] Admitting Diagnosis: Lumbar degenerative disc disease [M51.36] [...] day insulin lispro 0-12 Units Subcutaneous TID insulin lispro 0-6 Units Subcutaneous Nightly Continuous Infusions: sodium chloride 100 mL/hr at 06/06/19 0219 PRN Meds:.HYDROcodone 5 mg - acetaminophen, sodium [...] AM EST Physical Therapy Missed Treatment Facility/Department: [facility] MED SURG /N2 NAME: Deondre Lr : 1955 (64 y.o.) Account: [id number] Gender: male Chart reviewed, attempted PT at [...] Tate OTR/Jaclyn - 06/05/2019 9:11 AM EST [facility] OCCUPATIONAL THERAPY EVALUATION - ACUTE NAME: Deondre Lr : 1955 (64 y.o.) CODE STATUS: Full Code Room: 22/N2 Date of Service: 06/05/2019 Patient Diagnosis(es): Lumbar [...] and on stairs) Transfer Assistance: Independent Active Inclined Railway Operator: Yes OBJECTIVE: Orientation Status: Orientation Overall Orientation [...] from home with spouse who presents to [facility] with the above deficits which impact [...] Individual Minutes Time In: 834 Time Out: 55 Minutes: 20 Eval: 20 minutes Electronically signed by: FE Drummond/Jaclyn 06/05/2019, 9:11 AM * Kelly Miguel, PT - 06/05/2019 9:10 AM EST Physical Therapy Med Surg Initial Assessment Facility/Department: [address] NEURO Room: [place] [address] NAME: Deondre Lr : 1955 (64 y.o.) [...] L5-S1 PLIF performed by Hernandez Tovar, Fanny FERGUSON OR SHOULDER SURGERY SPINE SURGERY Chart Reviewed: [...] and on stairs) Transfer Assistance: Independent Active Inclined Railway Operator: Yes OBJECTIVE: Vision: Within Functional Limits Hearing: [...] Goals: Patient goals : to go home terminal operations supervisor goals terminal operations supervisor goal 1: pt to be indep with bed mobility utilizing log roll terminal operations supervisor goal 2: pt to be indep with transfers terminal operations supervisor goal 3: pt to ambulate >100 ft with WW vs cane mod indep nursing home goal 4: pt to navigate 4 steps [...] Now off floor to x-ray via cart. 1649 pain remains uncontrolled. 165 Dr. Tovar called to check on pt. Changed fentanyl patch to 50mcg 1748 fentanyl patch placed on the upper left back * Marium Marley RN - 06/04/2019 3:31 PM EST Report to [address] [place] [address] RN, pt currently on his cell phone and calm. Call placed to his son Luis to inform him of his dad's room and ph.number. Transport at bedside. * Marium Marley RN - 06/04/2019 12:45 PM EST Lab at bedside for lab draw. * Skye Perkins RN - 06/04/2019 7:36 AM EST emission technician here in preop to draw confirmation lab tube for surgery. documented in this [facility] Phone: [phone] 742-818001-11-2020 Hospital course Narrative* Hernandez Tovar MD - [...] osteoarthritis of the hips. documented in this [facility] Phone: 1(576) 600-193201-11-2020 Hospital Discharge instructions* Discharge Instr - HODAN* [...] MENTAL STATUS:} IV Access: { HODAN IV ACCESS:478654786} Nursing Mobility/ADLs: Walking {CHP DME ADLs:582493480} Transfer {CHP DME ADLs:089149673} Bathing {CHP DME ADLs:208728806} Dressing {CHP DME ADLs:151336655} Toileting {CHP DME ADLs:821666945} Feeding {CHP DME ADLs:685459122} Screw Driver Operator {P DME ADLs:997476970} Med Delivery { HODAN MED Delivery:963374260} Wound Care Documentation and Therapy: Elimination: Continence: Bowel: {YES / NO:} Bladder: {YES / NO:} Urinary Catheter: {Urinary Catheter:874710321} Colostomy/Ileostomy/Ileal Conduit: {YES / NO:} Date of Last BM: Intake/Output Summary (Last 24 hours) at 06/06/2019 0911 Last data filed at 06/06/2019 0902 Gross per 24 hour Intake 2280 ml Output 695 ml Net 1585 ml I/O last 3 completed shifts: In: 3520 [P.O.:1520; I.V.:2000] Out: 1325 [Urine:900; Drains:425] Safety Concerns: { HODAN Safety Concerns:870629029} Impairments/Disabilities: { HODAN Impairments/Disabilities:482284806} Nutrition Therapy: Current Nutrition Therapy: { HODAN Diet List:704997959} Routes of Feeding: {[facility] DME Other Feedings:388202343} Liquids: {Gerontological Nurse Practitioner liquid thickness:52598} Daily Fluid Restriction: {CHP DME Yes amt example:221125933} Last Modified Barium Swallow with Video (Video Swallowing Test): {Done Not Done Date:} Treatments at the Time of Hospital Discharge: Respiratory Treatments: Oxygen Therapy: {Therapy; copd oxygen:58527} Ventilator: { CC Vent List:330937210} Rehab Therapies: {THERAPEUTIC INTERVENTION:5057324056} Weight Bearing Status/Restrictions: {[facility] Weight Bearin} Other Medical Equipment (for information only, NOT a DME order): {EQUIPMENT:401958481} Other Treatments: Patient's personal belongings (please select all that are sent with patient): {[facility] DME Belongings:948554465} RN SIGNATURE: {Esignature:767993200} CASE MANAGEMENT/SOCIAL WORK SECTION Inpatient Status Date: Readmission Risk Assessment Score: Readmission Risk Risk of Unplanned Readmission: 12 Discharging to Facility/ Agency Name: Address: Phone: Fax: Dialysis Facility (if applicable) Name: Address: Dialysis Schedule: Phone: Fax: Filter Tank Tender Helper Head/Export Coordinator signature: {Esignature:651126251} PHYSICIAN SECTION Prognosis: {Prognosis:4072548456} Condition at Discharge: { Patient Condition:907462854} Rehab Potential (if transferring to Rehab): {Prognosis:9165209193} Recommended Labs or Other Treatments After Discharge: Physician Certification: I certify the above information and transfer of Deondre Lr is necessaryfor the continuing treatment of the diagnosis listed and that he requires {Admit to Appropriate Level of Care:42624} for {GREATER/LESS:080351939} 30 days. Update Admission H&P: {CHP DME Changes in HandP:361327443} PHYSICIAN SIGNATURE: * Additional Instructions* Hellen Lopez Jo C - 06/06/2019 medication given may have significant [...] your physician 11) Call your doctor at [phone] for an appointment (or follow up as [...] call OFFICE. The 24- hour phone is [phone] 13) If you are unable to contact your surgeon, in an emergency situation, go to the nearest hospital emergency room. 14) shower on Saturday 15) no driving [facility] WILL FOLLOW FOR PT/OT . THEIR PHONE NUMBER IS [phone] documented in this encounterSt. [facility] CampusQuality Practice Phone: 1([phone]) 201-272101-09-2020 NoteFLUORO FOR SURGICAL PROCEDURES : 06/04/2019 6:30 AM CLINICAL HISTORY: Lumbar Fusion . COMPARISON: None available. Intraoperative fluoroscopy was provided for Dr. Guy melendez. A total of 49.8 seconds of fluoroscopy was used, with 6 fluoroscopic stills saved. No diagnostic images were obtained. Please see Dr. Tovar surgical notes for completeness.[employer] Phone: [phone]) 825-366201-09-2020 Geetha Cooper Incoming Radiant Results From [employer] - 06/04/2019 10:53 AM EST FLUORO FOR SURGICAL PROCEDURES : 06/04/2019 6:30 AM CLINICAL HISTORY: Lumbar Fusion . COMPARISON: None available. Intraoperative fluoroscopy was provided for Dr. Tovar procedure. A total of 49.8 seconds of fluoroscopy was used, with 6 fluoroscopic stills saved. No diagnostic images were obtained. Please see Dr. Tovar surgical notes for completeness. [employer] Phone: evaluation + Plan note Future Appointments Appointment Date:11/21/2023 03:30:00 PM Scheduled Provider:JERONIMO Benoit APRN Usha X Location:[facility] Appointment Type:URO Complex Office Visit [facility] evaluation + Plan note Future Appointments Appointment Date:01/14/2024 11:00:00 AM Scheduled Provider:JERONIMO Benoit APRN Usha Hoang Location:[facility] Appointment Type:URO Office Visit [facility] Evaluation + Plan note Future Appointments Appointment Date:05/05/2024 11:00:00 AM Scheduled Provider:Orzech COMMUNICATIONS DESIGNER, E COMMERCE SPECIALIST-C, Usha X Location:[facility] Appointment Type:URO Office Visit Diagnostic Tests Pending * PSA Free & Total 01/14/24 [facility] evalibfrny note* Diagnosis Radiculopathy, unspecified spinal region 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 Pre-op examination Preoperative examination, unspecified documented in this encounter [employer] Phone: evalylsqwz note* Diagnosis Post-op pain- Primary Other acute postoperative pain Muscle spasm Spasm of muscle 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 documented in this encounter [employer] Phone: evalcbquyc note* Diagnosis Pain Generalized pain documented in this encounter [employer] Phone: evalmwomcg note* Diagnosis Post-op pain- Primary Other acute postoperative pain Lumbar degenerative disc disease Degeneration of lumbar or lumbosacral intervertebral disc documented in this encounter [employer] Phone: evaloelrsy note* Diagnosis Left rotator cuff tear arthropathy- Primary Post-op pain Other acute postoperative pain Atrial fibrillation (HCC) Atrial fibrillation Essential hypertension Unspecified essential hypertension Type 2 diabetes mellitus without complication (HCC) S/P reverse total shoulder arthroplasty, left documented in this encounter [employer] Phone: evalhqguyv note* Diagnosis Closed fracture of shaft of left humerus, unspecified fracture morphology, initial encounter- Primary documented in this encounter ALEYDA ERICKSON [employer] Phone: evalktxdjd noteNo assessment information available [facility] Work Phone: Evaluation noteNo InformationNort [employer]on Other History general Narrative - Reported* Type [...] COMPRESSION 2019 Hospitalization History SEE SURGICAL HX [place] Other Hospital course Narrative No data available for this section [facility] Discharge instructions No data available for this section [facility] progress note No data available for this section [facility] reason for visit Narrative* Auth/Cert Specialty Diagnoses / Procedures Referred By Contac t Referred To Contact Diagnoses S/P rotator cuff repair ROTATOR CUFF REPAIR Procedures NJ RECONSTR TOTAL SHOULDER IMPLANT SHOULDER TOTAL ARTHROPLASTY REVERSE Zenia Molina MD [address] [place] [address] [id number] [place] [address] Referral ID Status Reason Start Date Expiration Date Visits Re quested Visits Authorized [id number] 1 1 [employer] Phone: reason for visit Narrative* Auth/Cert Specialty Diagnoses / Procedures Referred By Contac t Referred To Contact Diagnoses Rotator cuff arthropathy of both shoulders ROTATOR CUFF ARTHROPATHY, LEFT SHOULDER Procedures NJ RECONSTR TOTAL SHOULDER IMPLANT SHOULDER TOTAL ARTHROPLASTY REVERSE Zenia Molina MD [address] [place] [id number] [place] [address] Referral ID Status Reason Start Date Expiration Date Visits Re quested Visits Authorized 1 1 [employer] Phone: Summary Purpose Family History No Family History Records FoundNo Family History Records FoundNo Family History Records FoundNo Family History Records FoundNo Family History Records FoundNo Family History Records FoundNo Family History Records Found No data available for this section No data available for this section No data available for this section No Family History Records Found Advance Directives No Advanced Directives Records FoundDocuments on File Type Date Recorded Patient 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 Frame Maker Expl anation ACP-Advance Directive ACP-Power of Home Paraprofessional Latest Code Status on File Code Status Date Activated Date Inactivated Comments Full Code 06/04/2019 3:37 PM 06/08/2019 4:48 PM Documents on File Type Date Recorded Patient 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 Frame Maker Expl 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 ACP-Advance Directive ACP-Power of Home Paraprofessional Latest Code Status on File Code Status [...] Documents on File Type Date Recorded Patient Umbrella Frame Maker Expl anation Advance Directives and Living Will Power of Home Paraprofessional Latest Code Status on File Code Status Date Activated Date Inactivated Comments Full Code 06/04/2019 3:37 PM Latest Code Status on File Code Status Date Activated Date Inactivated Comments Full Code 09/05/2021 1:40 PM Full Code 12/06/2020 3:10 PM 12/08/2020 6:34 PM Healthcare Agents on File Name Relationship Healthcare Agent Relationshi p Communication Marlene Lr Spouse Primary Decision Maker [phone] (Home) Latest Code Status on File Code Status [...] Fluoro For Surgical Procedures Hernandez Tovar MD [address] [place] [address] Status Reason Specialty Diagnoses / Procedures Referred By Contact Referred To Contact Open Specialty Services Required Home Health Services Diagnoses Lumbar degenerative disc disease Hernandez Tovar MD [address], [address] [place] [address] Reason *FU 02/12 [place] office - balance issues, falls. Normal CT in ER May - labs earlier this summer. thanks Diagnosis 1 Balance disorder (R2 6.89) Referral Organization [facility] walter Referring Provider First Name Mike Referring Provider Last Name Gee Referring Provider Specialty Family [facility] cine Referred Organization [facility] Referred Provider Reilly Howard Referred Address [address] [place], [place],[address] Referred Provider Specialty Neurology Referral Priority Routine [...] section and content) DATE CREATED AUTHOR 11/27/2020 [facility] DATE CREATED AUTHOR AUTHOR'S ORGANIZ ATION 12/09/2020 [facility] DATE CREATED AUTHOR AUTHOR'S ORGANIZ ATION 12/13/2021 [facility] DATE CREATED AUTHOR AUTHOR'S ORGANIZ ATION 11/02/2022 [facility] DATE CREATED AUTHOR AUTHOR'S ORGANIZ ATION 12/24/2022 [facility] DATE CREATED AUTHOR AUTHOR'S ORGANIZ ATION 06/18/2023 [facility] DATE CREATED AUTHOR AUTHOR'S ORGANIZ ATION 07/30/2023 [facility] DATE CREATED AUTHOR AUTHOR'S ORGANIZ ATION 01/16/2024 [facility] Reason for Visit (unrecogniz ed section and content) Status Reason Specialty Diagnoses / Procedures Referre d By Contact Referred To Contact Diagnoses RADICULOPATHY; PSEUDOARTHROSIS; SPONDYLOSIS; FACET ARTHROPATHY Procedures NJ LUMBAR SPINE FUSN,POST INTRBDY L 4-5 PLIF (POSTERIOR LUMBAR INTERBODY FUSION) INFUSE 2 HOURS/ 1 C-ARM/ MAX TABLE/ SSEP/ CELL SAVERS/ NUVASIVE (PAT [facility]) DR. TOVAR TO START AT 9:00 AM Hernandez Tovar MD [address] [place] [address] [employer] Status Reason Specialty Diagnoses / Procedures Referre d By Contact Referred To Contact Diagnoses Spondylosis SPONDYLOSIS, STENOSIS, FACET ARTHROPATHY, RADICULOPATHY Procedures NJ LUMBAR SPINE FUSN,POST INTRBDY L 4-5 DECOMPRESSION, L5-S1 PLIF (POSTERIOR LUMBAR INTERBODY FUSION), 2 HOURS/ 1 C-ARM/ NUVASIVE/ SSEP/ CELL SAVERS/ MAX TABLE, OUTSIDE PAT AT [facility] Hernandez Tovar MD [address] [place] [address] [employer] Reason Comments Fall fell off bed this [...] Brielle Tompkins RN)1637 (Stopped - Provider: Brielle Tompkins, RAEANN) amitriptyline (ELAVIL) tablet 50 mg 50 mg, [...] DAILY, First dose on Sat12/06/20 at 1530 2031 (Not Given - Provider: Sasha Garcia RN [...] Post-op 0 (Due - Provider: Brielle Tompkins RN)232 (New Bag - Provider: Sasha Garcia RN)2358 [...] at 2100 2040 (Given - Provider: Sasha Garcia, RAEANN) 2123 (Given - Provider: Blanca Reyes RN) 2100 (Due) metoprolol succinate (TOPROL XL) extended release tablet 50 mg (COMPLETED) 50 mg, Oral, NUT SORTER OPERATOR TO O.R., On Sat12/06/20 at 0800, For [...] 0839 (Given - Provider: Adelaide [place]illela, RAEANN) prednisoLONE (ORAPRED) 15 MG/5ML solution 5 mg [...] 0750 (New Bag - Provider: Deborah Ray, RN) PRN Medication Order 12/06/2020 12/07/2020 12/08/2020 [...] only 1424 (Given - Provider: Maribell Heath, RN)1436 (Given - Provider: Maribell Heath, RAEANN) gelatin [...] 24 hours. 1614 (Given - Provider: Brielle Tompkins, RAEANN)2039 (Given - Provider: Sasha Garcia, RAEANN) 0340 (Given - Provider: Sasha Garcia RN)0923 (Given - Provider: Adelaide [place]la, RAEANN)1331 (Given - Provider: Adelaide [place]la, RN)1733 (Given - Provider: Adelaide [place]la, RN)2124 (Given [...] Reyes, RAEANN)2319 (Given - Provider: Blanca Reyes, RN) ondansetron [...] 2,000 mg, IntraVENous, ONCE, 1 dose, On e 08/22/21 at 1030, Antimicrobial Indications: Surgical Prophylaxis, Pre-op (day of surgery) 1030 (Due) dimenhyDRINATE (DRAMAMINE) tablet 50 mg 50 mg, Oral, ONCE, 1 dose, On e 08/22/21 at 1030, Pre-op (day of surgery) 1030 [...] RN) 0042 (New Bag - Provider: Colin Younger, RAEANN)0115 (Stopped - Provider: Colin Younger, RAEANN) dimenhyDRINATE (DRAMAMINE) tablet 50 mg (COMPLETED) 50 [...] Comment: [phone] (Given - Provider: Claudia Dasilva, RAEANN)1700 (Due) lisinopril (PRINIVIL;ZESTRIL) tablet 10 mg 10 [...] Pamella Singh, RAEANN)1140 (Given - Provider: Pamella Singh RN) gentamicin [...] Care Teams (unrecognized sec tion and content) Manager Business Information Relationship Specialty Start Date End Date Mike Yuan MD PCP - General Family Medicine 12/25/18 Manager Business Information Relationship Specialty Start Date End Date Mike Yuan MD PCP - General Family Medicine 12/25/18 Manager Business Information Relationship Specialty Start Date End Date Mike Yuan MD PCP - General Family Medicine 12/25/18 Manager Business Information Relationship Specialty Start Date End Date Mike Yuan MD PCP - General Family Medicine 12/25/18 Team Status: Active Member Role Status Dates Berta Hernandez APRN [facility] Primary Care Provider Ed wong Team Status: Inactive Member Role Status Dates Berta Hernandez APRN [facility] Primary Care Provider, Attmarvin boggsing Provider Active [...] BE BASED ON THE PRIMARY CLINICAL RECORDS. [facility] [employer] [facility]. provides no warranty or guarantee of the accuracy or completeness of information in this document.
[2024-01-30 04:08] LABS: PSA, Free 0.61 ng/mL; Prostate Specific Ag 1.6 ng/mL (0.0-4.0)
== END 2024-01-29 08:39 | disposition home or self-care (01) ==
LOC: LAB 08:40
PROVIDERS: PCP Family Medicine; Visit Provider Nurse Practitioner Family
DX: Z12.5 Encounter for screening for malignant neoplasm of prostate (principal)
CPT/HCPCS: 36415; 84153; 84154

== ENCOUNTER 2024-06-02 12:07 | Outpatient (OUT) | payer MEDICARE, OTHER, SELFPAY ==
[2024-06-02 12:59] LABS: Estimated Average Glucose 240 mg/dL
[2024-06-02 13:11] LABS: Basophils Percent Auto 0.5 % (0.2-2.0); Eosinophils Absolute Auto 0.3 10^3/uL (0.0-0.7); Eosinophils Percent Auto 3.3 % (0.9-7.0); Hematocrit 35.9 % (42.0-54.0); Hemoglobin 11.8 g/dL (14.0-18.0); Immature Granulocytes Abs Auto 0.03 10^3/uL (0.00-0.03); Immature Granulocytes Pct Auto 0.4 % (0.0-0.5); Lymphocytes Absolute Auto 2.1 10^3/uL (1.2-3.8); Lymphocytes Percent Auto 25.5 % (20.5-60.0); Mean Corpuscular HGB Conc 32.9 g/dL (29.9-35.2); Mean Corpuscular Hemoglobin 30.2 pg (25.9-34.0); Mean Corpuscular Volume 91.8 fL (80.0-94.0); Mean Platelet Volume 10.9 fL (9.5-13.5); Monocytes Absolute Auto 0.6 10^3/uL (0.3-0.8); Monocytes Percent Auto 7.7 % (1.7-12.0); Neutrophils Absolute Auto 5.2 10^3/uL (1.4-6.5); Neutrophils Percent Auto 62.6 % (43.0-75.0); Platelet Count 177 10^3/uL (150-450); Red Blood Count 3.91 10^6/uL (4.70-6.10); Red Cell Distribution Width 13.4 % (11.0-15.0); White Blood Count 8.4 10^3/uL (4.0-11.0)
[2024-06-02 13:17] LABS: Microalbum Creatinine Ratio Ur 61.3 mg/g (0.0-29.9); Microalbumin Urine Random <1.3 mg/dL (<=30.0)
[2024-06-02 13:51] LABS: Alanine Aminotransferase 56 U/L (16-63); Albumin Globulin Ratio 0.8; Albumin Level 3.7 g/dL (3.4-5.0); Alkaline Phosphatase 131 U/L (46-116); Anion Gap 11.8; Aspartate Amino Transferase 35 U/L (15-37); BUN Creatinine Ratio 12.1; Bilirubin Total 0.5 mg/dL (0.2-1.0); Calcium 8.7 mg/dL (8.5-10.1); Carbon Dioxide 27.9 mmol/L (21.0-32.0); Chloride 103 mmol/L (98-107); Chol HDL Ratio 3.3; Cholesterol 133 mg/dL (<=200); Estimated GFR (African America >60 (>=60 mL/min/1.73m^2); Estimated GFR (Non-African Ame 58 (>=60 mL/min/1.73m^2); Globulin 4.4 g/dL; Glucose 306 mg/dL (74-106); HDL Cholesterol 40 mg/dL (40-60); Potassium 3.7 mmol/L (3.5-5.1); Sodium 139 mmol/L (136-145); Thyroid Stimulating Hormone 1.736 uIU/mL (0.358-3.740); Total Protein 8.1 g/dL (6.4-8.2); Triglycerides 302 mg/dL (<=150); VLDL CHOLESTEROL 60.4 mg/dL
== END 2024-06-02 12:08 | disposition home or self-care (01) ==
LOC: LAB 12:10
PROVIDERS: PCP Family Medicine; Visit Provider Family Medicine
DX: Z52.4 Kidney donor (principal); Z12.5 Encounter for screening for malignant neoplasm of prostate; E11.65 Type 2 diabetes mellitus with hyperglycemia; R53.83 Other fatigue
CPT/HCPCS: 36415; 80053; 80061; 82043; 82570; 83036; 84443; 85025; G0103

== ENCOUNTER 2025-03-31 18:22 | Emergency (ER) | payer OTHER, MEDICARE, SELFPAY ==
--- OUTSIDE RECORDS SUMMARY | 2024-03-21 04:00 | XMS_ITS ---
Author Organization [facility] Address [address] [place] [address] [place] [address] Care Team Providers Care Addiction Medicine Physician Name Role Phone Migration, Provider Unavailable Unavailable REASON FOR VISIT EMR-Damion Encounters Encounter Location Date Provider Diagnosis [facility] [address] [place] [address] 03/21/2024 Provider Migration Plan Of Treatment No Information Progress Notes * Billy GARCIA PDOB:1955 (70 yo M)Acc No.[id number]:03/21/2024 Patient:?Billy GARCIA :1955???Age:69 Y???Sex:MalePhone:[phone] Address:[address] [place] [address], [address] Subjective: * Chief Complaints: * E MR-Damion * * Date:?
--- OUTSIDE RECORDS SUMMARY | 2024-03-22 04:00 | XMS_ITS ---
Author Organization [facility] Address [address] [place] [address] [place] [address] Care Team Providers Care Fixed Income Trading Vice President Name Role Phone Migration, Provider Unavailable Unavailable REASON FOR VISIT EMR-Damion Encounters Encounter Location Date Provider Diagnosis [facility] [address] [place] [address] 03/22/2024 Provider Migration Plan Of Treatment No Information Progress Notes * Billy GARCIA PDOB:1955 (70 yo M)Acc No.[id number]:03/22/2024 Patient:?Billy GARCIA :1955???Age:69 Y???Sex:MalePhone:[phone] Address:[address] [place] [address], [address] Subjective: * Chief Complaints: * E MR-Damion * * Date:?
--- OUTSIDE RECORDS SUMMARY | 2025-03-22 22:59 | XMS_ITS | Continuity of Care Document ---
Author Organization [facility] Address [address] [place] [address] Care Team Providers Care Software Engineer Kernel Name Role Phone MIKE YUAN Primary Care Physician [phone] Encounter FT_AMBFIN [id number] Date(s): 03/22/25 - 03/22/25 [facility] [address] [place] [place] [address]- [place] Encounter Diagnosis BPH (benign prostatic hyperplasia)(Discharge Diagnosis) - 03/22/25 Urinary urgency(Discharge Diagnosis) - 03/22/25 Screening for prostate cancer(Discharge Diagnosis) - 03/22/25 Incomplete emptying of bladder(Discharge Diagnosis) - 03/22/25 Discharge Disposition: Home (Routine DC) Attending Physician: JERONIMO Benoit APRN, [place] X Encounter Type: Clinic Allergies, Adverse Reactions, Alerts No Known Medication Allergies Immunizations Given and Recorded VaccineDateStatusRefusal ReasonRSV vaccine, preF A-preF B, vphqpmeqfby38/7/25 Recordedinfluenza virus vaccine, inactivated02/18/25Recordedinfluenza virus vaccine, inactivated01/30/23Recordedinfluenza virus vaccine, jqenxdikqzf88/22/22 Recordedinfluenza virus vaccine, inactivated02/17/21Recordedinfluenza virus vaccine, inactivated02/10/20Recordedinfluenza virus vaccine, ijjuzpxyntw65/14/19 Recordedinfluenza virus vaccine, xiiyubixvqk75/25/Recorded diphtheria/pertussis, acel/tetanus adult10/31/22Recordedzoster vaccine, idfhbtefprw94/16/22Recordedzoster vaccine, inactivated10/12/21Recorded pneumococcal 23-valent vaccine07/28/21Recordedpneumococcal 23-valent vaccine 03/09/19Recordedpneumococcal 13-valent fxeyvuc38/19/21Recordedpneumococcal 13- valent ctidrho26/25/41TxwvjoxmTSAT-UiW-5 (COVID-19) mRNA BNT-162b2 va11/14/20 MvieibaiYBOC-AqR-7 (COVID-19) mRNA BNT-162b2 va10/27/20Recordedzoster vaccine live02/27/16Recorded Medications acetaminophen-hydrocodone 325 mg-5 mg oral tablet Refill(s) 0, 60 EA, 0 Refill(s), take 1 tablet by mouth twice a day NEEDED FOR PAIN Start Date: 11/14/23 Status: Ordered Repeat number: 1 adalimumab 20 mg/0.4 mL subcutaneous kit 40 Unknown, subcutaneous, 0 Refill(s), Inject 0.8 mL (40 mg total) under the skin once a week. DO NOT RESUME UNTIL OCTOBER 14, Refills(s) 0 Start Date: 09/26/22 Status: Ordered Repeat number: 1 alendronate 70 mg Tab 70 Unknown, ORAL, 2 Refill(s), Refills(s) 0 Start Date: 04/11/23 Status: Ordered Repeat number: 1 amitriptyline 50 mg Tab 30 EA, 0 Refill(s), take 1 tablet by mouth at bedtime, Refills(s) 0 Start Date: 11/14/23 Status: Ordered Repeat number: 1 atorvastatin 20 mg Tab 20 Unknown, ORAL, 0 Refill(s), Refills(s) 0 Start Date: 09/02/23 Status: Ordered Repeat number: 1 calcium (as calcium citrate) 200 mg oral tablet 200 Unknown, ORAL, 0 Refill(s), Refills(s) 0 Start Date: 04/16/23 Status: Ordered Repeat number: 1 duloxetine 60 mg oral delayed release capsule 90 EA, 0 Refill(s), take 1 capsule by mouth once daily, Refills(s) 0 Start Date: 11/14/23 Status: Ordered Repeat number: 1 finasteride 5 mg Tab 5 mg = 1 tab(s), Oral, Daily, # 30 tab(s), Refills(s) 11, Pharmacy: [facility] #[id number], 165, cm, 01/18/25 14:37:00 EDT, Height/Length Dosing, 78.8, kg, 01/18/25 14:37:00 EDT, Weight Dosing Start Date: 01/18/25 Status: Ordered Quantity: 30.0 Unit: tab(s) Repeat number: 12 Indications: Benign prostatic hyperplasia without lower urinary tract symptoms; folic acid 1 mg Tab 1 Unknown, ORAL, 0 Refill(s), Refills(s) 0 Start Date: 04/09/23 Status: Ordered Repeat number: 1 furosemide 40 mg Tab 40 Unknown, ORAL, 0 Refill(s), Refills(s) 0 Start Date: 04/09/23 Status: Ordered Repeat number: 1 gabapentin 300 mg Cap 300 Unknown, ORAL, 0 Refill(s), Refills(s) 0 Start Date: 04/22/23 Status: Ordered Repeat number: 1 Gemtesa 75 mg oral tablet 75 mg = 1 tab(s), Oral, Daily, # 30 tab(s), Refills(s) 2, Pharmacy: [facility] #[id number], 165, cm, 01/18/25 14:37:00 EDT, Height/Length Dosing, 78.8, kg, 01/18/25 14:37:00 EDT, Weight Dosing Start Date: 01/18/25 Status: Ordered Quantity: 30.0 Unit: tab(s) Repeat number: 3 lidocaine Top 5% film Patch Refill(s) 0, TRANSDERMAL, 0 Refill(s) Start Date: 09/02/23 Status: Ordered Repeat number: 1 lisinopril 10 mg Tab 10 Unknown, ORAL, 0 Refill(s), Refills(s) 0 Start Date: 09/02/23 Status: Ordered Repeat number: 1 Metoprolol tartrate 50 mg Tab 50 Unknown, ORAL, 0 Refill(s), Refills(s) 0 Start Date: 09/02/23 Status: Ordered Repeat number: 1 mirtazapine 15 mg Tab 15 Unknown, ORAL, 2 Refill(s), Refills(s) 0 Start Date: 12/25/22 Status: Ordered Repeat number: 1 multivitamin Refill(s) 0, 1 Unknown, oral, 0 Refill(s), Take 1 tablet by mouth in the morning. Start Date: 11/14/23 Status: Ordered Repeat number: 1 omeprazole 20 mg Cap-DR 40 Unknown, ORAL, 0 Refill(s), Refills(s) 0 Start Date: 09/02/23 Status: Ordered Repeat number: 1 prazosin 1 mg Cap 3 Unknown, ORAL, 1 Refill(s), Refills(s) 0 Start Date: 06/27/23 Status: Ordered Repeat number: 1 sertraline 100 mg Tab 135 EA, 0 Refill(s), take 1 AND 1/2 tablets by mouth once daily, Refills(s) 0 Start Date: 11/14/23 Status: Ordered Repeat number: 1 Problem List ConditionConfirmationCourseEffective DatesStatusHealth StatusInformantArthritis ConfirmedActiveAtrial fibrillationConfirmed10/28/13ActiveBPH (benign prostatic hyperplasia)ConfirmedActiveHydroceleConfirmedActiveEpididymitisConfirmedActive Head acheConfirmedActiveHyperlipidemiaConfirmed07/18/23ActiveHypertensive disorderConfirmedActiveIncomplete emptying of bladderConfirmedActiveHepatitis ConfirmedActiveScreening for prostate cancerConfirmedActiveRheumatoid arthritis Confirmed07/18/2310TakjotEufnhgzcctiWljatkjog3/2/21ActiveType 2 diabetes mellitus ConfirmedActiveUrinary urgencyConfirmedActive Procedures ProcedureDateRelated DiagnosisBody SiteStatusHistory of lumbar fusionCompleted Left nephrectomyCompleted Social History Social History TypeResponseSmoking StatusFormer smoker, quit more than 30 days ago;Never; Type: Cigarettes entered on: 01/18/25Birth SexMaleSex RepresentationMale (finding) Patient Care team information Care Team Personnel Name: MIKE YUAN MD Position: FT Physician Member Role: Primary Care Physician Address: [address] [place] [address] Telecom: Care Team Related Persons Name: TONY MELTON Insurance Providers Guarantor name: Health Plan Information #: 1 Payer: MEDICARE DEVOTED [employer] Payer Identifier: [id number] Member Number: [id number] Group Number: [id number] Subscriber Identifier: [id number] Relationship to Subscriber: self Coverage Type: MEDICARE Coverage Verification Date: NA Telecom: NA Address: [facility] [address] [place] [address] Health Plan Information #: 2 Payer: [employer] SECONDARY Payer Identifier: [id number] Member Number: [id number] Group Number: [id number] Subscriber Identifier: [id number] Relationship to Subscriber: self Coverage Type: PRIVATE HEALTH INSURANCE Coverage Verification Date: 25 Telecom: [phone] Address: [facility] [address] [place] [address]
[2025-03-31 18:27] VITALS: BP 155/81; PULSE 60; TEMP 36.6; O2SAT 97; BMI 28.6
--- NOTE | 2025-03-31 18:37 | ECG_ITS ---
The 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 Measurements Intervals [place] Rate: 57 P: 30 ND: 234 QRS: -37 QRSD: 108 T: -5 QT: 418 QTc: 413 Interpretive Statements 1100 Sinus rhythm 2231 First degree AV block 2440 Incomplete right bundle branch block 5222 Moderate voltage criteria for LVH, may be normal variant 7200 Abnormal left axis deviation 8003 Consistent with pulmonary disease 9150 abnormal ECG Compared to ECG 10/19/2023 13:08:14 First degree AV block now present Incomplete right bundle-branch block now present Ventricular premature complex(es) no longer present Electronically Signed On 04-01-2025 7:22:38 EST by JD ROCK M.D.
--- NOTE | 2025-03-31 18:41 | CT_ITS ---
The [place] [id number] Patient Name: DEONDRE MELTON MRN: [id number] date: 1955 Sex: M Assigned Patient Location: ED.MAIN Current Patient Location: ED.MAIN Accession/Order Number: [id number] Exam Date: 03/31/2025 18:55 Report Date: 03/31/2025 20:03 At the request of: ARY ALCAZAR Procedure: CT lumbar spine wo con CT lumbar spine without contrast TECHNIQUE: The CT exam was performed using one or more the following dose reduction techniques: Automated exposure control, adjustment of the MA and/or Kv according to patient size, or use of the iterative reconstruction technique. COMPARISON: None HISTORY: Fell. Chest pain. Adequate alignment. No acute fracture. L3-S1 fusion hardware without complication. L2 superior endplate compression deformity which appears chronic. No paraspinal abnormality. CT/CT lumbar spine wo con IMPRESSION: No acute fracture. No hardware complication. Impression dictated by: Cirilo Burton M.D. 03/31/2025 8:03 PM Dictation Location: [facility] Electronically authenticated by: [id number] Y Date: 03/31/2025 20:03
--- NOTE | 2025-03-31 18:41 | XR_ITS ---
The [place] [id number] Patient Name: DEONDRE MELTON MRN: [id number] date: 1955 Sex: M Assigned Patient Location: ED.MAIN Current Patient Location: ED.MAIN Accession/Order Number: [id number] Exam Date: 03/31/2025 19:18 Report Date: 03/31/2025 19:38 At the request of: ARY ALCAZAR Procedure: XR knee NOHELIA 3V 3 views of both knees HISTORY: Fell. Bilateral knee pain Adequate bony alignment without acute displaced fracture or joint effusion. Unremarkable soft tissues. XR/XR knee NOHELIA 3V IMPRESSION: No acute displaced fracture. Impression dictated by: Cirilo Burton M.D. 03/31/2025 7:38 PM Dictation Location: [place] [address] Electronically authenticated by: [id number] Y Date: 03/31/2025 19:38
--- NOTE | 2025-03-31 18:41 | CT_ITS ---
The [address] [address] Patient Name: DEONDRE MELTON MRN: [id number] date: 1955 Sex: M Assigned Patient Location: ED.MAIN Current Patient Location: ED.MAIN Accession/Order Number: [id number] Exam Date: 03/31/2025 18:55 Report Date: 03/31/2025 19:44 At the request of: ARY ALCAZAR Procedure: CT head/brain wo con Unenhanced head CT TECHNIQUE: Contiguous axial imaging of the head. The CT exam was performed using one or more the following dose reduction techniques: Automated exposure control, adjustment of the MA and/or Kv according to patient size, or use of the iterative reconstruction technique. COMPARISON: 10/17/2022 HISTORY: Fell 2 days ago VENTRICLES: Within normal limits ATROPHY: Diffuse atrophy BRAIN PARENCHYMA: Decreased density of the white matter is most consistent with chronic small vessel disease. HEMORRHAGE: None HERNIATION: No mass effect or herniation INFARCTION: No recent vascular distribution infarction is seen. EXTRA-AXIAL FLUID COLLECTIONS None MIDBRAIN: Unremarkable CARLIE: Unremarkable MEDULLA: Unremarkable SINUSES: Unremarkable ORBITS: Grossly unremarkable MASTOIDS: Unremarkable BONY STRUCTURES Intact ADDITIONAL FINDINGS: CT/CT head/brain wo con IMPRESSION: No acute findings. Impression dictated by: Cirilo Burton M.D. 03/31/2025 7:44 PM [facility]ictation [facility] Electronically authenticated by: [id number] Y Date: 03/31/2025 19:44
--- NOTE | 2025-03-31 18:41 | CT_ITS ---
The [address] [address] Patient Name: DEONDRE MELTON MRN: [id number] date: 1955 Sex: M Assigned Patient Location: ED.MAIN Current Patient Location: ED.MAIN Accession/Order Number: [id number] Exam Date: 03/31/2025 18:55 Report Date: 03/31/2025 19:48 At the request of: ARY ALCAZAR Procedure: CT cervical spine wo con CT Cervical Spine withoutcontrast TECHNIQUE: Axial imaging with 2-D and 3-D reconstruction. The CT exam was performed using one or more the following dose reduction techniques: Automated exposure control, adjustment of the MA and/or Kv according to patient size, or use of the iterative reconstruction technique. COMPARISON: None HISTORY: Fell. Left eyebrow laceration. POST SURGERY CHANGES: None BONY ALIGNMENT: Straightening BONY SPINAL CANAL: Patent central bony canal FRACTURE: Nonfusion of the anterior and posterior C1 ring. Congenital finding. No acute displaced fracture. BONY LESIONS: None SOFT TISSUES: Unremarkable DEGENERATIVE CHANGES: Extensive C5-6 spondylosis with mild retrolisthesis. Multilevel facet degeneration. LUNG APICES: Unremarkable ADDITIONAL FINDINGS: CT/CT cervical spine wo con IMPRESSION: No acute process Impression dictated by: Cirilo Burton M.D. 03/31/2025 7:48 PM Dictation Location: [facility] Electronically authenticated by: [id number] Y Date: 03/31/2025 19:48
--- NOTE | 2025-03-31 18:41 | CT_ITS ---
The [address] [address] Patient Name: DEONDRE MELTON MRN: [id number] date: 1955 Sex: M Assigned Patient Location: ED.MAIN Current Patient Location: ED.MAIN Accession/Order Number: [id number] Exam Date: 03/31/2025 18:55 Report Date: 03/31/2025 19:53 At the request of: ARY ALCAZAR Procedure: CT abdomen pelvis wo con CT Abdomen and Pelvis withoutcontrast TECHNIQUE: Axial imaging with 2-D reconstruction. The CT exam was performed using one or more the following dose reduction techniques: Automated exposure control, adjustment of the MA and/or Kv according to patient size, or use of the iterative reconstruction technique. COMPARISON: None History: Fell. Chest pain. LIMITATIONS: None LOWER THORAX Unremarkable LIVER: Unremarkable GALLBLADDER: Cholecystectomy clips identified. BILE DUCTS: No dilatation SPLEEN: Unremarkable PANCREAS: Unremarkable ADRENAL GLANDS: Unremarkable KIDNEYS:Left nephrectomy. Unremarkable right kidney without traumatic injury. AORTA: No abdominal aortic aneurysm identified. RETROPERITONEUM: No significant retroperitoneal abnormalities identified. MESENTERY:Unremarkable STOMACH:Unremarkable SMALL BOWEL: The small bowel loops are nondistended. APPENDIX: The appendix is normal. COLON: Unremarkable URINARY BLADDER: Urinary bladder is unremarkable. REPRODUCTIVE SYSTEM: Reproductive structures are unremarkable. PNEUMOPERITONEUM: None PERITONEAL FLUID:None BONY STRUCTURES: Stable degenerative change. Stable mild endplate compression deformities. Stable fixation hardware. ABDOMINAL WALL: Unremarkable CT/CT abdomen pelvis wo con IMPRESSION: No acute findings. Impression dictated by: Cirilo Burton M.D. 03/31/2025 7:53 PM Dictation Location: [facility] Electronically authenticated by: [id number] Y Date: 03/31/2025 19:53
--- NOTE | 2025-03-31 18:41 | CT_ITS ---
The [address] [address] Patient Name: DEONDRE MELTON MRN: [id number] date: 1955 Sex: M Assigned Patient Location: ED.MAIN Current Patient Location: ED.MAIN Accession/Order Number: [id number] Exam Date: 03/31/2025 18:55 Report Date: 03/31/2025 20:00 At the request of: ARY ALCAZAR Procedure: CT chest wo con CT Chest without contrast TECHNIQUE: Axial imaging with 2-D reconstruction. The CT exam was performed using one or more the following dose reduction techniques: Automated exposure control, adjustment of the MA and/or Kv according to patient size, or use of the iterative reconstruction technique. History: Fell. Chest pain COMPARISON: Plain film chest 10/19/2023 THYROID: Unremarkable TRACHEA AND BRONCHI: Patent ESOPHAGUS: Unremarkable. HEART: Within normal limits small right pericardial cyst. PERICARDIAL EFFUSION: None CORONARY ARTERY CALCIFICATION: Present MEDIASTINUM: No adenopathy. No pneumoperitoneum. No mediastinal hematoma. PULMONARY ARTI: No hilar mass or adenopathy is seen. THORACIC AORTA Unremarkable LUNG NODULE None LUNGS: Linear scarring/atelectasis. PLEURAL EFFUSION: None PNEUMOTHORAX: No pneumothorax seen. CHEST WALL: No abnormality AXILLA:Unremarkable BONY STRUCTURES streak artifact from bilateral shoulder arthroplasties. Limited assessment of the upper chest. Mild lower thoracic compression fractures and vertebroplasty change. UPPER ABDOMEN: Images of the upper abdomen are noncontributory. CT/CT chest wo con IMPRESSION: No acute traumatic injury of chest. No acute fracture. Chronic thoracic spine fractures with vertebral plasty change. Impression dictated by: Cirilo Burton M.D. 03/31/2025 8:00 PM Dictation Location: [facility] Electronically authenticated by: [id number] Y Date: 03/31/2025 20:00
--- NOTE | 2025-03-31 18:41 | CT_ITS ---
The [address] [address] Patient Name: DEONDRE MELTON MRN: [id number] date: 1955 Sex: M Assigned Patient Location: ED.MAIN Current Patient Location: ED.MAIN Accession/Order Number: [id number] Exam Date: 03/31/2025 19:10 Report Date: 03/31/2025 20:06 At the request of: ARY ALCAZAR Procedure: CT thoracic spine wo con CT THORACIC SPINE WITHOUT CONTRAST TECHNIQUE: The CT exam was performed using one or more the following dose reduction techniques: Automated exposure control, adjustment of the MA and/or Kv according to patient size, or use of the iterative reconstruction technique. HISTORY: Fell. Chest pain COMPARISON: None POST SURGERY CHANGES: None BONY ALIGNMENT: Adequate BONY SPINAL CANAL: Patent central bony canal FRACTURE: T7 and T9 anterior wedge compression fractures with vertebral plasty change. Likely represent old fractures. No new fractures identified. Exaggerated kyphosis secondary to compression deformities. BONY LESIONS: None SOFT TISSUES: Unremarkable DEGENERATIVE CHANGES: Multilevel mild to moderate degeneration The visualized lung higginbotham are unremarkable. The visualized aorta is unremarkable. No obstructive uropathy identified. CT/CT thoracic spine wo con IMPRESSION: NO ACUTE BONY PROCESS. Chronic appearing fractures T7 and T9 with vertebral plasty change. Impression dictated by: Cirilo Burton M.D. 03/31/2025 8:06 PM Dictation Location: [place] [address] Electronically authenticated by: [id number] Y Date: 03/31/2025 20:06
--- NOTE | 2025-03-31 18:43 | ED.GENADUL1 ---
HPI HPI - General Adult General Chief complaint: Fall Stated complaint: FELL AND HIT HIS HEAD Time Seen by Provider: 03/31/25 18:37 Source: family Mode of arrival: Wheelchair Limitations: no limitations History of Present Illness HPI narrative: 70 year old male presents to the ED for pain to his head, neck, back, chest, abdomen, and knees s/p fall while playing basketball today. He fell onto cement. He is unsure if he lost consciousness. Reports dizziness. Denies N/V. He has chronic back pain; the pain is now worse. Denies fever, chills, vision changes, SOB. Denies change in bowel and/or bladder control. Denies saddle anesthesia. He has a laceration near his left eyebrow and an abrasion to his left cheek. Tetanus status is unknown. He is accompanied by family. Related Data Home Medications ?Medication ?Instructions ?Recorded ?Confirmed adalimumab 40 mg/0.4 mL 40 mg subcut QWEEK 11/02/22 10/19/23 subcutaneous syringe kit (Lacho(CF)) amitriptyline 25 mg tablet 25 mg PO BEDTIME 11/02/22 10/20/23 duloxetine 60 mg capsule,delayed 60 mg PO DAILY 11/02/22 10/19/23 release furosemide 40 mg tablet 40 mg PO DAILY 11/02/22 10/19/23 lisinopril 10 mg tablet 10 mg PO DAILY 11/02/22 10/19/23 metoprolol tartrate 50 mg tablet 50 mg PO BID 11/02/22 10/20/23 multivitamin (Multiple Vitamins 1 tab PO DAILY 11/02/22 10/19/23 tablet) omeprazole 40 mg capsule,delayed 40 mg PO DAILY 11/02/22 10/19/23 release alendronate 70 mg tablet 70 mg PO QWEEK 06/13/23 10/19/23 atorvastatin 20 mg tablet 20 mg PO BEDTIME 06/13/23 10/20/23 folic acid 1 mg tablet 1 mg PO DAILY 06/13/23 10/19/23 gabapentin 300 mg capsule 300 mg PO Q8H 06/13/23 10/19/23 lidocaine 5 % topical patch 1 patch topical DAILY 06/13/23 10/19/23 mirtazapine 15 mg tablet 15 mg PO QPM PRN sleep 01/18/24 05/26/24 prazosin 1 mg capsule 4 mg PO BEDTIME 06/13/23 10/20/23 calcium citrate 200 mg PO BID 10/20/23 10/20/23 sertraline 100 mg tablet 150 mg PO DAILY 10/20/23 10/20/23 Previous Rx's ?Medication ?Instructions ?Recorded hydrocodone 5 mg-acetaminophen 325 1 tab PO BID PRN pain #60 tabs 03/07/23 mg tablet doxycycline hyclate 100 mg capsule 100 mg PO BID 60 days #120 caps 10/20/23 dutasteride 0.5 mg capsule 0.5 mg PO DAILY #90 caps 10/20/23 cephalexin 500 mg capsule 500 mg PO BID 7 days #14 caps 10/22/23 meloxicam 7.5 mg tablet 7.5 mg PO DAILY #10 tabs 10/22/23 hydrocodone 5 mg-acetaminophen 325 1 tab PO Q8H PRN pain 4 days #12 03/31/25 mg tablet tabs Allergies Allergy/AdvReac Type Severity Reaction Status Date / Time No Known Drug Allergies Allergy Verified 06/03/23 10:24 Opioid HPI Opioid Management Most Recent Opioid Data: Last Pain Scale 8 10/22/23, 12:11 Last Pain Intensity 8 10/22/23, 10:55 Last ORT Total Score 0 10/19/23, 17:52 Last ORT Risk Category Low Risk 10/19/23, 17:52 Review of Systems ROS Constitutional Denies: fever or chills Ears, nose, mouth, and throat Reports: neck pain; Denies: throat pain, ear discharge or nose bleeds Cardiovascular Reports: chest pain Respiratory Denies: shortness of breath Gastrointestinal Reports: abdominal pain; Denies: nausea or vomiting Genitourinary Denies: urinary frequency or blood in urine Musculoskeletal Reports: back pain, neck pain and extremity pain Integumentary/Breast Reports: skin pain, skin tenderness and new lesion; Denies: rash Neurological Reports: headache and dizziness; Denies: numbness in extremities or weakness in extremities [facility] Medical History (Updated 03/31/25 @ 20:19 by Flora Mathews) Rheumatoid arthritis ?M06.9 - Rheumatoid arthritis, unspecified (ICD-10) Non-insulin dependent type 2 diabetes mellitus ?E11.9 - Type 2 diabetes mellitus without complications (ICD-10) Afib ?I48.91 - Unspecified atrial fibrillation (ICD-10) Hypertension ?I10 - Essential (primary) hypertension (ICD-10) Combined hyperlipidemia ?E78.2 - Mixed hyperlipidemia (ICD-10) Encounter for monitoring opioid maintenance therapy ?Z51.81 - Encounter for therapeutic drug level monitoring (ICD-10) ?Z79.891 - 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 manager (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) use of opiate analgesic (ICD-10) Chronic, continuous use of opioids ?F11.90 - Opioid use, unspecified, uncomplicated (ICD-10) Osteoarthritis ?M19.90 - Unspecified osteoarthritis, unspecified site (ICD-10) Lumbar radiculopathy ?M54.16 - Radiculopathy, lumbar region (ICD-10) Lumbar spondylosis ?M47.816 - Spondylosis without myelopathy or radiculopathy, lumbar region (ICD-10) Surgical History History of lumbar fusion ?Z98.1 - Arthrodesis status (ICD-10) H/O left nephrectomy ?Z90.5 - Acquired absence of kidney (ICD-10) Social History Highest level of school completed/degree received: 10th grade Little interest or pleasure in doing things: not at all Feeling down, depressed, or hopeless: not at all Exam Constitutional Vital Signs, click to edit/add: Last Vital Signs Temp 98 F 03/31/25 18:27 Pulse 60 03/31/25 18:27 Resp 18 03/31/25 18:27 BP 155/81 H 03/31/25 18:27 Pulse Ox 97 03/31/25 18:27 O2 Del Method Room Air 03/31/25 18:27 Common normals: oriented x3 and alert General appearance: cooperative [facility] Common normals: external ears normal and moist oral mucous membranes Head and scalp: abrasion, contusion and laceration; no Rich's sign and no raccoon eyes Nose: external nose normal; no epistaxis Throat: uvula midline Other: 1.5 cm superficial-appearing laceration at left eyebrow area. There is surrounding bruising with minimal swelling. Abrasion noted to left cheek area. Eye Common normals: PERRL, EOMs intact bilaterally, conjunctivae normal and no scleral icterus Neck & C-Spine Common normals: supple Cervical spine: paracervical muscle tenderness and paracervical muscle spasm Chest Chest: symmetrical chest wall rise and tenderness Respiratory Common normals: normal respiratory effort and no use of accessory muscles Effort & inspection: able to speak in complete sentences and symmetric chest movement Cardio Common normals: regular rate GI Common normals: soft to palpation Palpation: tender (Generalized) Back & Pelvis Thoracic spine/upper back: normal to inspection, paraspinal muscle tenderness and paraspinal muscle spasm Lumbar spine/lower back: normal to inspection, paraspinal muscle tenderness and paraspinal muscle spasm Other: Lidocaine patch in place to left lower back upon arrival. Extremity Other: Tenderness to bilateral knees. Abrasions noted to bilateral knees. No obvious deformity noted. Full ROM. Denies tenderness to hips, feet, ankles. Denies tenderness to BUE. Neuro Common normals: oriented x3, CN's II-XII intact bilaterally, moves all extremities and no focal motor deficits Speech: speech normal Course Vital Signs Vital signs: Vital Signs Temperature 98 F 03/31/25 18:27 Pulse Rate 60 03/31/25 18:27 Respiratory Rate 18 03/31/25 18:27 Blood Pressure 155/81 H 03/31/25 18:27 Pulse Oximetry 97 03/31/25 18:27 Oxygen Delivery Method Room Air 03/31/25 18:27 Temperature 98 F 03/31/25 18:27 Pulse Rate 60 03/31/25 18:27 Respiratory Rate 18 03/31/25 18:27 Blood Pressure 155/81 H 03/31/25 18:27 Pulse Oximetry 97 03/31/25 18:27 Oxygen Delivery Method Room Air 03/31/25 18:27 Medical Decision Making MDM Narrative Medical decision making narrative: Imaging was negative for acute findings; see below. He was medicated with Zofran, Morphine, and Percocet here in the ED. His facial wounds were cleansed. Dermabond was applied to the eyebrow laceration area. Findings were discussed with the patient and his family. Return precautions were discussed. Follow up with pcp for a recheck, further evaluation and treatment. OARRS was reviewed. A prescription was provided for norco. He was able to ambulate prior to discharge. His tetanus status was updated here. Medical Records Medical records reviewed: Yes I reviewed the patient's medical records Imaging Data CT scan - head: Attestation: I have reviewed the pertinent imaging results. Radiologist's impression: ITS Impressions Abdomen/Pelvis CT 03/31/25 18:41 IMPRESSION: No acute findings. Impression dictated by: Cirilo Burton M.D. 03/31/2025 7:53 PM Dictation Location: [facility]20 Electronically authenticated by: [id number] Y Date: 03/31/2025 19:[address] 03/31/25 18:41 IMPRESSION: No acute process Impression dictated by: Cirilo Burton M.D. 03/31/2025 7:48 PM Dictation Location: [facility]20 Electronically authenticated by: [id number] Y Date: 03/31/2025 19:[address] 03/31/25 18:41 IMPRESSION: No acute traumatic injury of chest. No acute fracture. Chronic thoracic spine fractures with vertebral plasty change. Impression dictated by: Cirilo Burton M.D. 03/31/2025 8:00 PM Dictation Location: [facility]20 Electronically authenticated by: [id number] Y Date: 03/31/2025 20:[address] 03/31/25 18:41 IMPRESSION: No acute findings. Impression dictated by: Cirilo Burton M.D. 03/31/2025 7:44 PM Dictation Location: [facility]20 Electronically authenticated by: [id number] Y Date: 03/31/2025 19:44 Knee X-Ray 03/31/25 18:41 IMPRESSION: No acute displaced fracture. Impression dictated by: Cirilo Burton M.D. 03/31/2025 7:38 PM Dictation Location: [facility]20 Electronically authenticated by: [id number] Y Date: 03/31/2025 19:[address] 03/31/25 18:41 IMPRESSION: No acute fracture. No hardware complication. Impression dictated by: Cirilo Burton M.D. 03/31/2025 8:03 PM Dictation Location: [facility]20 Electronically authenticated by: [id number] Y Date: 03/31/2025 20:[address] 03/31/25 18:41 IMPRESSION: NO ACUTE BONY PROCESS. Chronic appearing fractures T7 and T9 with vertebral plasty change. Impression dictated by: Cirilo Burton M.D. 03/31/2025 8:06 PM Dictation Location: [facility] Electronically authenticated by: [id number] Y Date: 03/31/2025 20:06 Discharge Plan Discharge Chief Complaint: Fall Clinical Impression: Head injury, Facial laceration, Contusion of face, Neck pain, Back pain, Chest wall pain, Abdominal pain, Bilateral knee pain, Fall Patient Disposition: Home, Self-Care Time of Disposition Decision: 20:18 Condition: Good Mode of Transportation: Private Vehicle Prescriptions / Home Meds: New hydrocodone-acetaminophen 5-325 mg tablet 1 tab PO Q8H PRN (Reason: pain) 4 Days Qty: 12 0RF No Action amitriptyline 25 mg tablet 25 mg PO BEDTIME duloxetine 60 mg capsule,delayed release(DR/EC) 60 mg PO DAILY furosemide 40 mg tablet 40 mg PO DAILY Humira(CF) 40 mg/0.4 mL syringe kit 40 mg subcut QWEEK lisinopril 10 mg tablet 10 mg PO DAILY multivitamin [Multiple Vitamins] Tablet 1 tab PO DAILY metoprolol tartrate 50 mg tablet 50 mg PO BID omeprazole 40 mg capsule,delayed release(DR/EC) 40 mg PO DAILY hydrocodone-acetaminophen 5-325 mg tablet 1 tab PO BID PRN (Reason: pain) Qty: 60 0RF gabapentin 300 mg capsule 300 mg PO Q8H prazosin 1 mg capsule 4 mg PO BEDTIME mirtazapine 15 mg tablet 15 mg PO QPM PRN (Reason: sleep) atorvastatin 20 mg tablet 20 mg PO BEDTIME folic acid 1 mg tablet 1 mg PO DAILY alendronate 70 mg tablet 70 mg PO QWEEK Patient Comments: TAKE EVERY SATURDAY lidocaine 5 % adhesive patch,medicated 1 patch topical DAILY Rx Instructions: leave on most painful area for up to 12 hrs sertraline 100 mg tablet 150 mg PO DAILY calcium citrate 200 mg (950 mg) tablet 200 mg PO BID dutasteride 0.5 mg capsule 0.5 mg PO DAILY Qty: 90 3RF doxycycline hyclate 100 mg capsule 100 mg PO BID 60 Days Qty: 120 0RF meloxicam 7.5 mg tablet 7.5 mg PO DAILY Qty: 10 0RF cephalexin 500 mg capsule 500 mg PO BID 7 Days Qty: 14 0RF Print Language: Kyrgyz Instructions: Head Injury (ED), Skin Adhesive Care (ED), Back Pain (ED), Chest Wall Pain (ED), Acute Neck Pain (ED) Additional Instructions: Return to the ED for worsening symptoms. Referrals: Niru Flynn MD [Primary Care Provider, Family Practice] - 1 week
--- OUTSIDE RECORDS SUMMARY | 2025-03-31 18:43 | XMS_ITS | CCD ---
Author Organization [facility] Care Team Providers Care Dye Expert Name Role Phone Mike Yuan MD Primary Care Provider [phone] MIKE YUAN Primary Care Unavailable GUY, HERNANDEZ [...] Unavailable LAKSHMIPATHY ., BALDOATH Attending Pia vailable LAKYASEMINMIPATHY ., BALDOATH Admitting Pia vailable DR JENNIFER RAGSDALE Primary Care Unavailable DR MIKE YUAN Primary Care Unavailable FLORES ., DR LOUISE Nuñez Attending Unavailable TANNER ., DR LOUISE Nuñez Admitting Unavailable TANNER ., DR LOUISE Nuñez Consulting Unavailable AUTUMN RIOS Consulting Unavailable MAGALLANES .DEVAN Consulting Unavailable DR MIKE YUAN Primary Care Unavailable TANNER ., DR LOUISE Nuñez Attending Unavailable TANNER ., DR LOUISE Nuñez Admitting Unavailable LAKSHMIPATHY ., NARELIAS Attending Pia vailable LAKSHMIPATHAlexandro ., NARJUAN JOSEATH Admitting Pia vailable DR JENNIFER RAGSDALE Primary Care Unavailable FLORES ., DR LOUISE Nuñez Attending Unavailable DR MIKE YUAN Primary Care Unavailable TANNER ., DR LOUISE Nuñez Admitting Unavailable LAKSHMIPATHY ., NARENDRANATH Consulting Pia vailable LAKSHMIPATHY ., NARENDRANATH Attending Pia vailable LAKSHMIPATHY ., NARENDRANATH Admitting Pia vailable BALL, DR RODRIGUEZ Primary Care Unavailable TANNER ., DR LOUISE Nuñez Attending Unavailable YUAN, DR MIKE Wong Primary Care Unavailable TANNER ., DR LOUISE Nuñez Admitting Unavailable TANNER ., DR LOUISE Nuñez Consulting Unavailable [facility] DR BLANKENSHIP Attending Unavailable ELTAHAWY, DR BLANKENSHIP Admitting Unavailable BALL, DR RODRIGUEZ Primary Care Unavailable [facility], DR BLANKENSHIP Consulting Unavailable ZIEBER, DR [...] Care Unavailable FAWWAD, APARICIO H Attending Unavailable [place], DR RAMONA Carmichael Consulting Unavailable [facility] ., MELINDA QUINTANILLA [facility]IC[facility], APARICIO H Consulting Unavailable SISTER, ADAM Consulting Unavailable [facility], PANDA Consulting Unavailable MAGALLANES ., DEVAN Consulting Unavailable TANNER ., DR LOUISE Nuñez Admitting Unavailable YUAN, DR MIKE Wong Primary Care Unavailable TANNER ., DR LOUISE Nuñez Attending Unavailable TANNER ., DR LOUISE Nuñez Attending Unavailable YUAN, DR MIKE Wong Primary Care Unavailable TANNER ., DR LOUISE Nuñez Admitting Unavailable TANNER ., DR LOUISE Nuñez Consulting Unavailable YUAN, DR MIKE Wong Primary Care Unavailable TANNER ., DR LOUISE Nuñez Attending Unavailable TANNER ., DR LOUISE Nuñez Admitting Unavailable MAGALLANES ., DEVAN Consulting Unavailable YUAN, DR MIKE Wong Primary Care Unavailable TANNER ., DR LOUISE Nuñez Admitting Unavailable TANNER ., DR LOUISE Nuñez Consulting Unavailable TANNER ., DR LOUISE Nuñez Attending Unavailable BELINDA HOLLINGSWORTH Consulting Unavailable REILLY BEATTY Consulting Unavailable Mike Yuan Unavailable IRAIS Hernandez Primary Care Provider [phone] IRAIS Hernandez Attending Provider MD Mike Yuan Other Provider Berta Hernandez Attending Unavailable Berta Hernandez Primary Care Unavailable Berta Hernandez Admitting Unavailable Mike Yuan Consulting Unavailable Jc NIETO, Lesley Altamirano Attending Unavailable Jc NIETO, Lesley Altamirano Attending Unavailable RAVEN PRADO Attending Unavailable MIKE YUAN Primary Care Physician [phone] LEIDA ONEIL Attending Unavailable MIKE YUAN Referring Unavailable MIKE YUAN Primary Care Unavailable Orzech Usha X Attending Unavailable Orzech, Usha X Attending Unavailable Orzech Usha X Attending Unavailable Orzech, Usha X Attending Unavailable Orzech Usha X Attending Unavailable Allergies Allergy ClassificationReported Allergen(s)Allergy TypeDate of OnsetReaction(s) Facility (1 source)No Known Medication Allergies; Translations: [No Known Medication Allergies]Propensity to adverse reactions (disorder)[facility] Medications Current Medications MedicationDrug Class(es)DatesSig (Normalized)Sig (Original)alendronic acid 70 mg oral tablet (8 sources)BisphosphonateStart: 19-21-4706Wjxov: 63-40-3754vkkvzxa 325 mg delayed release oral tablet (12 sources)Platelet Aggregation Inhibitor, Nonsteroidal Anti-inflammatory Drug Start: 91-23-0344ljwr 1 tablet by mouth once dailyaspirin 325 MG EC tablet Take 1 tablet by mouth daily 30 tablet 3 09/06/2021 ActiveStart: 76-01-7747rxmg 81 mg by mouth once daily81 mg, Oral, DAILY, First dose on Sat12/06/20 at 1530Start: 13-58-9951yvmg 81 mg by mouth once daily81 mg, Oral, DAILY, First dose on Sat06/04/19 at 1600 End: 88-94-9107pvfe 1 tablet by mouth once dailyaspirin 81 MG tablet Take 81 mg by mouth daily 0 09/06/2021 Discontinued (Stop Taking at Discharge)cephalexin 500 mg oral capsule (5 sources)Cephalosporin AntibacterialStart: 12-08-2020 End: 34-71-5411zlye 1 capsule by mouth every eight hourscephALEXin (KEFLEX) 500 MG capsule Take 1 capsule by mouth every 8 hours for 20 doses 20 capsule 0 0 12/08/2020 12/15/2020 ActiveStart: 12-07-2020 End: 44-25-6526nglc 1 dose by mouth three times bhuug376 mg, Oral, EVERY 8 HOURS SCHEDULED (3 times per day), First dose on Sat12/07/20 at 0600, For 20 doses Start: 06-05-2019 End: 39-19-5154wzqs 1 capsule by mouth three times dailycephALEXin (KEFLEX) 500 MG capsule Take 1 capsule by mouth 3 times daily for 7 days 21 capsule 0 03/202006/13/2019 ActivediazePAM 5 mg oral tablet (6 sources)BenzodiazepineStart: 12-08-2020 End: 65-49-2221lovp 1 tablet by mouth every eight hours as needed for muscle spasmsdiazePAM (VALIUM) 5 MG tablet Indications: Muscle spasm Take 1 tablet by mouth every 8 hours as needed (muscle spasm) for up to 3 days. 12 tablet 0 12/08/2020 12/11/2020 ActiveStart: 06-06-2019 End: 67-80-2258yrzd 1 tablet by mouth every six hours as needed for anxiety diazepam (VALIUM) 5 MG tablet Indications: Post-op pain Take 1 tablet by mouth every 6 hours as needed for Anxiety for up to 14 days. 40 tablet 0 06/08/2019 06/22/2019 ActiveStart: 14-35-6485mvrpppgg (VALIUM) tablet 5 mgdocusate sodium 50 mg / sennosides, [facility] 8.6 mg oral tablet (3 sources)Start: 12-06-2020 End: 37-62-9040ujus 1 tablet by mouth twice dailysennosides-docusate sodium (SENOKOT-S) 8.6-50 MG tablet Take 1 tablet by mouth 2 times daily for 10days 20 tablet 0 12/08/2020 12/18/2020 Activefinasteride 5 mg oral tablet (7 sources)5-alpha Reductase InhibitorStart: 99-22-5290kpqg 1 tablet by mouth once dailyfinasteride 5 mg Tab 5 mg = 1 tab(s), Oral, Daily, # 30 tab(s), Refills(s) 11, Pharmacy: [email or web address] #[id number], 165, cm, 01/18/25 14:37:00 EDT, Height/Length Dosing, 78.8, kg, 01/18/25 14:37:00EDT, Weight Dosing Start Date: 01/18/25 Status: Ordered Quantity: 30.0 Unit: tab(s) Repeat number: 12 Indications: Benign prostatic hyperplasia without lower urinary tract symptoms; Start: 14-74-4681nhzk 1 tablet by mouth once dailyfinasteride 5 mg Tab 5 mg = 1 tab(s), Oral, Daily, # 30 tab(s), Refills(s) 11, Pharmacy: [facility] #[id number], 165, cm, 06/25/24 12:10:00 EST, Height/Length Dosing, 77, kg, 06/25/24 12:10:00 EST, Weight Dosing Start Date: 06/25/24 Status: Ordered Quantity: 30.0 Unit: tab(s) Repeat number: 12 Indications: Benign prostatic hyperplasia without lower urinary tract symptoms;Start: 28-08-1286yblj 1 tablet by mouth once daily finasteride 5 mg Tab 5 mg = 1 tab(s), Oral, Daily, # 30 tab(s), Refills(s) 11, [facility]: [id number], 165, cm, 11/21/23 15:37:00 EDT, Height/Length Dosing, 77, kg, 11/21/23 15:37:00 EDT, Weight Dosing Start Date: 11/21/23 Status: Ordered glucagon (rdna) 1 mg injection (2 sources)Antihypoglycemic AgentStart: 63-40-0135adwwpmjv (rDNA) injection 1 mg Start: 27-11-9406nasx 1 mL intravenously every hour1 mg, Intramuscular, PRN, Low blood sugar, Blood glucose less than 70 mg/dL and patient NOT ALERT or NPO and does not have IV access., Starting on Sat12/06/20 at 1510 After administration, attempt intravenous access and start D5W at 100 mL/hr. Repeat blood glucose in 15 minutes x2 and notify provider.150 ml glucose 50 mg/ml injection (8 sources)Start: 75-46-8664mepeobc (GLUTOSE) 40 % oral gel 15 gStart: 22-16-0907qjwmpuik 50 % IV solutionStart: 51-19-0476lirupggu 5 % solutionStart: 25-44-1010woeazibv bolus (hypoglycemia) 10% 125 mLStart: 12-64-1536788 mL/hr, IntraVENous, PRN, Low blood sugar, Starting on Sat09/05/21 at 1340 Start infusion following administration of dextrose 50% or glucagon.Start: 12-06-2020 15 g, Oral, PRN, Low blood sugar, [...] 70 mg/dL, repeat treatment and recheck blood glucosein 15 minutes x2 and notify provider.Start: .5 g, Intravenous, PRN, Low blood sugar, Blood [...] If using Glucostabilizer, dose as instructed per system.Start: 57-21-1551627 mL/hr, Intravenous, at 100 mL/hr, PRN, Low blood sugar, Starting on Sat12/06/20 at 1510 Start infusion following administration of dextrose 50% or glucagon. insulin lispro 100 unt/ml injectable solution (6 sources)Insulin AnalogStart: 29-73-8311fhpbapd lispro (HUMALOG) injection vial 0-3 UnitsStart: -6 Units, Subcutaneous, NIGHTLY, First dose on Sat12/06/20 at 2100 If continuous tube feedings/TPN/NPO, give correction dose based on result, no reduction in dose. If eating or bolus tube feeding: Medium Dose Corrective Algorithm Glucose: Dose: If & lt;139 &amp ;nbsp; No Insulin 140-199 &n bsp; 1 Unit 200-249 &a mp;nbsp; 2 Units 250- 299 3 Units 300-349 &a mp;nbsp; 4 Units 350-400 &nb sp; 5 Units Above 400 6 UnitsStart: -12 Units, Subcutaneous, 3 TIMES DAILY WITH MEALS, First dose on Sat12/06/20 at 1700 Medium Dose Corrective Algorithm Glucose: Dose: If <139 &amp ;nbsp; No Insulin 140- 199 2 Units 200-249 4 Units 250-299 6 Units 300-349 8 Units&am p;nbsp;350-400 10 Units Above 400 12 UnitsStart: -6 Units, Subcutaneous, NIGHTLY, First dose on Shalonda 06/04/19 at 2100 If continuous tube feedings/TPN/NPO, give correction dose based on result, no reduction in dose. If eating or bolus tube feeding: Medium Dose Corrective Algorithm Glucose: Dose: If <139 No Insulin 140-199 &nb sp; 1 Unit 200-249 &am p;nbsp; 2 Units 250-2 99 3 Units 300-349 &am p;nbsp; 4 Units 350-400 &nbs p; 5 Units Above 400 & amp;nbsp; 6 UnitsStart: -12 Units, Subcutaneous, 3 TIMES DAILY WITH MEALS, First dose on Shalonda 06/04/19 at 1700 Medium Dose C orrective Algorithm Glucose: Dose: If <139 & nbsp; No Insulin 140- 199 2 Units 200-249 4 Units 250-299 6 Units 300-349 8 Units&amp ;nbsp;350-400 10 Units Above 400 12 Unitslidocaine 0.05 mg/mg medicated patch (8 sources)Antiarrhythmic, Amide Local AnestheticStart: 73-26-5593kxnrdignv Top 5% film Patch Refill(s) 0, TRANSDERMAL, 0 Refill(s) Start Date: 09/02/23 Status: Ordered Repeat number: 1mirtazapine 15 mg oral tablet (8 sources)Start: 71-50-9001iglghffe (PF) injection 2 mg (2 sources)Start: 66-59-6978bhepyadz (PF) injection 2 mgStart: 06-04-2019 morphine (PF) injection 2 mg2 ml ondansetron 2 mg/ml injection (1 source)Serotonin-3 Receptor AntagonistStart: mg, Intravenous, EVERY 6 HOURS PRN, Nausea, Vomiting, Starting Shalonda 06/04/19 at 1536, Post-op ondansetron (ZOFRAN-ODT) disintegrating tablet 4 mg (1 source)Start: 63-34-4817bnesbrpyvqa (ZOFRAN-ODT) disintegrating tablet 4 mg 1000 ml potassium chloride 0.02 meq/ml / sodium chloride 4.5 mg/ml injection (1 source)Start: 67-25-3880926 mL/hr, Intravenous, at 100 mL/hr, CONTINUOUS, Starting on Sat12/06/20 at 1530, Post-opprazosin 1 mg oral capsule (8 sources)alpha-Adrenergic BlockerStart: 35-23-0191xiootfdwLGOC 3 mg/ml oral solution (9 sources)CorticosteroidStart: 13-67-1301nmsx 5 mg by mouth once daily5 mg, Oral, DAILY, First dose on Sat12/06/20 at 1530Start: 36-67-4066tqsx 5 mg by mouth once daily5 mg, Oral, DAILY, First dose on Sat06/04/19 at 1430 End: 40-12-8348vpks 1 tablet by mouth once dailyprednisoLONE 5 MG TABS Take 5 mg by mouth daily 0 09/06/2021 Discontinued (Stop Taking at Discharge)Promethazine (1 source)PhenothiazineStart: 35-93-5655jvjrciydobzh (PHENERGAN) tablet 12.5 mg sulfamethoxazole 800 mg / trimethoprim 160 mg oral tablet (1 source)Dihydrofolate Reductase Inhibitor Antibacterial, Sulfonamide AntimicrobialStart: 11-21-2023 End: 98-79-3863grur 1 tablet by mouth twice dailyBactrim D.S. 800 mg-160 mg Tab 1 tab(s), Oral, BID for 6 week(s), 84 sponge(s), Refill(s) 0, [facility] #[id number], 165, cm, 11/21/23 15:37:00 EDT, Height/Length Dosing, 77, kg, 11/21/23 15:37:00 EDT, Weight Dosing Start Date: 11/21/23 Stop Date: 01/02/24 Status: Orderedvibegron 75 MG Oral Tablet [Gemtesa] (2 sources)Start: 13-90-4359ybii 1 tablet by mouth once dailyGemtesa 75 mg oral tablet 75 mg = 1 tab(s), Oral, Daily, # 30 tab(s), Refills(s) 2, Pharmacy: [facility] #[id number], 165, cm, 01/18/25 14:37:00 EDT, Height/Length Dosing, 78.8, kg, 01/18/25 14:37:00 EDT, Weight Dosing Start Date: 01/18/25 Status: Ordered Quantity: 30.0 Unit: tab(s) Repeat number: 3 Completed/Discontinued Medications MedicationDrug Class(es)DatesSig (Normalized)Sig (Original)acetaminophen 325 mg oral tablet (3 sources)Start: 09-05-2021 End: 83-27-8409fsiz 1 dose by mouth four times dxkym439 mg, Oral, EVERY 6 HOURS SCHEDULED (4 times per day), First dose on Sat09/05/21 at 1800, Until Di scontinued Maximum dose of acetaminophen is 4000 mg from all sources in 24 hours. Post-opStart: 08-22-2021 End: 18-13-3591emhqspidawdbq (TYLENOL) tablet 650 mgacetaminophen 325 mg / HYDROcodone bitartrate 5 mg oral tablet (20 sources)Opioid AgonistStart: 88-39-6399ibhmiresgytxd-hydrocodone 325 mg-5 mg oral tablet Refill(s) 0, 60 EA, 0 Refill(s), take 1 tablet bymouth twice a day NEEDED FOR PAIN Start Date: 11/14/23 Status: Ordered Repeat number: 1Start: 12-06-2021 End: 74-19-5917UYDPQqvpfoj-acetaminophen (NORCO) 5-325 MG per tablet Indications: Closed fracture of shaft of lefthumerus, unspecified fracture morphology, initial encounter Take 1 tablet by mouth every 6 hours asneeded for Pain for up to 3 days. Intended supply: 3 days. Take lowest dose possible to manage pain12 tablet 0 12/06/2021 12/09/2021 ActiveStart: 12-06-2021 End: 00-82-8411MRAEApptzba-acetaminophen (NORCO) 5-325 MG per tablet 2 tablet Start: 09-06-2021 End: 51-70-0702BHVXHnkoszv-acetaminophen (NORCO) 5-325 MG per tablet Indications: Post-op pain Take 1 tablet by mouth every 4 hours as needed for Pain for up to 7 days. Intended supply: 7 days. Take lowest dose possible to manage pain 42 tablet 0 09/06/2021 09/13/2021 ActiveStart: 12-08-2020 End: 79-21-4304jsat 1 tablet by mouth every six hours as needed for pain HYDROcodone-acetaminophen (NORCO) 7.5-325 MG per tablet Indications: Post-op pain Take 1 tablet by mouth every 6 hours as needed for Pain for up to 7 days. 28 tablet 0 12/08/2020 12/15/2020 ActiveStart: 80-22-2049ppik 1 tablet by mouth every four hours as needed for pain1 tablet, Oral, EVERY 4 HOURS PRN, Pain Moderate (4-6), Starting on Sat12/06/20 at 1510 Maximum dose of acetaminophen is 4000 mg from all sources in 24 hours.Start: 11-11-2020 End: 36-55-5136thia 1 tablet by mouth three times dailyHYDROcodone-acetaminophen (NORCO) 5-325 MG per tablet take 1 tablet by mouth three times a day if needed - MUST LAST 30 DAYS 0 11/11/2020 12/08/2020 Discontinued (Stop Taking at Discharge)Start: 06-06-2019 End: 92-95-7499vviq 1 tablet by mouth every six hours as needed for pain HYDROcodone-acetaminophen (NORCO) 10-325 MG per tablet Indications: Post-op pain Take 1 tablet by mouth every 6 hours as needed for Pain for up to 14 days. 40 tablet 0 06/08/2019 06/22/2019 ActiveStart: 35-91-7307ZBQRPrqsvbe-acetaminophen (NORCO) 5-325 MG per tablet 2 tabletStart: 06-04-2019 End: 91-16-6809esbb 1 tablet by mouth every four hours as needed for pain1 tablet, Oral, EVERY 4 HOURS PRN, Pain Moderate (4-6), Starting Sat06/04/19 at 1536 Maximum dose ofacetaminophen is 4000 mg from all sources in 24 hours. End: 94-84-1395lxok 1 tablet by mouth three times dailyHYDROcodone-acetaminophen (NORCO) 10-325 MG per tablet Take 1 tablet by mouth 3 times daily. 0 06/06/2019 Discontinued (REORDER)adalimumab (16 sources)Tumor Necrosis Factor BlockerStart: 50-70-8704Cocnp: 09-26-2022 Start: 91-75-363884 mg, Subcutaneous, EVERY 14 DAYS, First dose on Shalonda 06/04/19 at 1600 Non-Formulary with no TI: Adalimumab (Humira) End: 03-06-4061Afqppqjjbm 20 MG/0.4ML PSKT Inject 40 mg into the skin every 7 days 0 09/06/2021 Discontinued (StopTaking at Discharge)Adalimumab 20 MG/0.4ML PSKT Inject 40 mg into the skin every 14 days 0 Activeamitriptyline hydrochloride 50 mg oral tablet (20 sources)Tricyclic AntidepressantStart: 45-05-5347newfppntxpcdr 50 mg Tab 30 EA, 0 Refill(s), take 1 tablet by mouth at bedtime, Refills(s) 0 Start Date: 11/14/23 Status: Ordered Repeat number: 1Start: 56-73-1801eece 50 mg by mouth once daily50 mg, Oral, DAILY, First dose on Sat09/05/21 at 1500, Until DiscontinuedStart: 81-23-6229lmkq 50 mg by mouth once daily50 mg, Oral, DAILY, First dose on Sat06/04/19 at 1600Start: 79-60-2598acqe 1 tablet by mouth once dailyamitriptyline (ELAVIL) 50 MG tablet Take 50 mg by mouth daily 0 05/07/2019 Activeascorbic acid 500 mg oral tablet (11 sources)Vitamin CStart: 73-61-5596inbk 500 mg by mouth once xreez183 mg, Oral, DAILY, First dose on Sat09/06/21 at 0900, Until Discontinuedatorvastatin 20 mg oral tablet (8 sources)HMG-CoA Reductase InhibitorStart: 80-75-2568kefwqcv chloride 0.0014 meq/ml / potassium chloride 0.004 meq/ml / sodium chloride 0.103 meq/ml / sodium lactate 0.028 meq/ml injectable solution (5 sources)Start: 09-05-2021 End: 63-10-1744tlqjflbg ringers infusionStart: 88-01-5060nllfxgzn ringers infusionStart: 12-06-2020 End: 97-82-3798yepcxaud ringers infusionStart: 06-04-2019 End: 24-41-9615ngocohbj ringers infusioncalcium citrate 950 mg oral tablet (8 sources)Start: 37-49-0252rbLNDafcy (2 sources)Cephalosporin AntibacterialStart: 09-05-2021 End: 06-44-3219VTFAGJESL 2000 MG D5W 100 ML IVPB IVPBStart: 06-04-2019 End: g, Intravenous, EVERY 8 HOURS, 3 doses, First dose on Sat06/04/19 at 1600, Last dose on Sat06/05/19 at 0800, Post-opceFAZolin (ANCEF) 2000 mg in dextrose 5 % 100 mL IVPB (3 sources)Start: 09-05-2021 End: ,000 mg, IntraVENous, EVERY 8 HOURS, 2 doses, First dose on Sat09/05/21 at 1700, Last dose on Sat09/06/21 at 0100 Antimicrobial Indications: Surgical Prophylaxis Post-opStart: 09-05-2021 End: 97-77-8606uoXIXlhkg (ANCEF) 2000 mg in dextrose 5 % 100 mL IVPBStart: 12-06-2020 End: ,000 mg, Intravenous, EVERY 8 HOURS, 2 doses, First dose on Sat12/06/20 at 1530, Last dose on Sat12/06/20 at 2330, Post-opcyclobenzaprine hydrochloride 10 mg oral tablet (1 source)Muscle RelaxantStart: 12-06-2020 End: 91-63-7424spue 10 mg by mouth three times daily as needed for muscle spasms 10 mg, Oral, 3 TIMES DAILY PRN, Muscle spasms, Starting on Sat12/06/20 at 1510, Post-opdimenhyDRINATE 50 mg oral tablet (2 sources)Start: 09-05-2021 End: 01-88-1554yylurytCKMPKSW (DRAMAMINE) tablet 50 mgStart: 08-22-2021 End: 06-08-6686uyuwsatJWVNSBB (DRAMAMINE) tablet 50 mgdocusate sodium 100 mg oral capsule (12 sources)Start: 06-04-2019 End: 32-01-0479oovs 100 mg by mouth twice ladrj004 mg, Oral, 2 TIMES DAILY, First dose on Sat09/05/21 at 2100, Until Discontinueddoxycycline hyclate 100 mg oral capsule (4 sources)Tetracycline-class DrugStart: 70-37-5397edwysoynwhn hyclate 100 mg Cap 120 EA, 0 Refill(s), take 1 capsule by mouth twice a day, Refills(s)0 Start Date: 11/14/23 Status: OrderedDULoxetine 60 mg delayed release oral capsule (20 sources)Serotonin and Norepinephrine Reuptake InhibitorStart: 11-14-2023 duloxetine 60 mg oral delayed release capsule 90 EA, 0 Refill(s), take 1 capsule by mouth once daily, Refills(s) 0 Start Date: 11/14/23 Status: Ordered Repeat number: 1Start: 99-92-7340kmha 1 capsule by mouth once dailyDULoxetine (CYMBALTA) 60 MG extended release capsule Take 60 mg by mouth daily 0 05/27/2019 Active2 ml fentaNYL 0.05 mg/ml injection (8 sources)Opioid AgonistStart: 09-05-2021 End: 23-67-060664 mcg, IntraVENous, EVERY 5 MIN PRN, 2 doses, Starting on Sat09/05/21 at 1019, Until Discontinued,Pain Moderate (4-6) For Phase I. If Phase II oral narcotics have been administered in the last 60 minutes, do not administer IV narcotics unless specifically approved by provider. PACU onlyStart: 12-10-2020 End: 16-05-2451jxnyjMOQ (DURAGESIC) 25 MCG/HR Indications: Post-op pain Place 1 patch onto the skin every 72 hoursfor 9 days. 3 patch 0 12/10/2020 12/19/2020 ActiveStart: 71-14-5956tiivl 1 dose transdermal route every hourfentaNYL (DURAGESIC) 25 MCG/HR 1 patchStart: 12-06-2020 End: 38-48-3207icfgwDMY (SUBLIMAZE) injection 50 mcgStart: 71-40-7342yagwi 1 dose transdermal route every hourfentaNYL (DURAGESIC) 25 MCG/HR 1 patchStart: 06-05-2019 End: 06-36-7028uyrzm 1 dose transdermal route every hourfentaNYL (DURAGESIC) 50 MCG/HR 1 patchStart: 06-04-2019 End: patch, Transdermal, Administer over 72 Hours, EVERY 72 HOURS, First dose on Shalonda 06/04/19 at 1430ferrous sulfate 325 mg oral tablet (11 sources)Start: 37-89-2056fdjc 325 mg by mouth once daily at izmexqrak720 mg, Oral, DAILY WITH BREAKFAST, First dose on Sat09/06/21 at 0800, Until Discontinuedflecainide acetate 50 mg oral tablet (11 sources)AntiarrhythmicStart: 91-67-5976bcyg 100 mg by mouth twice wfjia116 mg, Oral, 2 TIMES DAILY, First dose on Sat09/05/21 at 2100, Until Discontinued Start: 29-74-6997ywhc 100 mg by mouth twice hohiu150 mg, Oral, 2 TIMES DAILY, First dose on Sat12/06/20 at 2100Start: 49-31-7203zrcb 100 mg by mouth twice hghha459 mg, Oral, 2 TIMES DAILY, First dose on Sat06/04/19 at 2100take 1 tablet by mouth twice dailyflecainide (TAMBOCOR) 100 MG tablet Take 100 mg by mouth 2 times daily 0 Activefolic acid 1 mg oral tablet (19 sources)Start: 24-54-3672Uerhh: 87-74-0009xiyz 1 mg by mouth once daily1 mg, Oral, DAILY, First dose on Sat09/06/21 at 0900, Until Discontinuedfurosemide 40 mg oral tablet (19 sources)Loop DiureticStart: 78-18-4686Xqshh: 84-11-6914lpfd 40 mg by mouth once daily40 mg, Oral, DAILY, First dose on Sat09/05/21 at 1500, Until Discontinuedgabapentin 300 mg oral capsule (17 sources)Anti-epileptic AgentStart: 31-22-0233Rowzk: 80-33-7328yhenrznbsg (NEURONTIN) capsule 300 mgStart: 80-09-8689fsqzukrgsd (NEURONTIN) capsule 100 mg Start: 69-35-6015fhwv 300 mg by mouth once mg, Oral, DAILY, First dose on Sat12/06/20 at 1530Start: 06-06-2019 End: 14-45-2319gxdi 0.5 tablet by mouth once dailygabapentin (NEURONTIN) 600 MG tablet Take 0.5 tablets by mouth daily for 14 days. 40 tablet 0 06/06/2019 ActiveStart: 22-85-9505zbpk 600 mg by mouth once jegys417 mg, Oral, DAILY, First dose on Sat06/04/19 at 1600 End: 39-40-1837ftvs 1 tablet by mouth once dailygabapentin (NEURONTIN) 600 MG tablet Take 600 mg by mouth daily. 0 06/06/2019 Discontinued (REORDER)1 ml HYDROmorphone hydrochloride 1 mg/ml cartridge (2 sources)Opioid AgonistStart: 12-06-2020 End: 83-37-2821zuuc 0.5 mg by mouth every three hours as needed for pain0.5 mg, Intravenous, EVERY 3 HOURS PRN, Pain Moderate (4-6), Starting on Sat12/06/20 at 1510 If oral and IV narcotics ordered, use oral first and only use IV if oral is ineffective or cannot take oral. Do Not give oral and IV within 1 hour of each other unless specifically ordered.Start: 06-04-2019 End: 39-69-2634BKAYXbghchyyi (DILAUDID) injection 0.5 mginsulin glargine 100 unt/ml injectable solution (11 sources)Insulin AnalogStart: 00-14-8780tjcwpr 10 [IU] by subcutaneous injection once daily10 Units, SubCUTAneous, NIGHTLY, First dose on Sat09/05/21 at 2100, Until DiscontinuedStart: 57-98-7679ejvhhk 10 [IU] by subcutaneous injection once daily10 Units, Subcutaneous, NIGHTLY, First dose on Sat12/06/20 at 2100Start: 27-17-9053tjoazf 10 [IU] by subcutaneous injection once daily10 Units, Subcutaneous, NIGHTLY, First dose on Sat06/04/19 at 2100insulin glargine (LANTUS) 100 UNIT/ML injection vial Inject 10 Units into the skin nightly 0 Active1 ml ketorolac tromethamine 15 mg/ml cartridge (1 source)Nonsteroidal Anti-inflammatory Drug, Cyclooxygenase InhibitorStart: 12-06-2021 End: 04-75-9735dnqtqdous (TORADOL) injection 15 mgStart: 12-06-2021 End: 36-19-1099dkwcftoay (TORADOL) injection 15 mglisinopril 10 mg oral tablet (19 sources)Angiotensin Converting Enzyme InhibitorStart: 81-93-9323Svnqm: 09-20-3063xtlg 10 mg by mouth once daily10 mg, Oral, DAILY, First dose on Sat09/05/21 at 1500, Until Discontinuedmelatonin 5 mg oral tablet (10 sources)Start: 09-05-2021 End: 46-91-8176vrkr 5 mg by mouth once daily5 mg, Oral, NIGHTLY, First dose on Sat09/05/21 at 2100, Until DiscontinuedStart: 13-34-2293ifnh 5 mg by mouth once daily5 mg, Oral, NIGHTLY, First dose on Sat12/06/20 at 2100metoprolol tartrate 50 mg oral tablet (20 sources)beta-Adrenergic BlockerStart: 56-50-0514Akirr: 89-10-8144swvwtncrcj succinate (TOPROL XL) extended release tablet 50 mgMultiple Vitamins-Minerals (MULTIVITAMIN ADULT PO) (1 source) End: 78-22-3496forj 1 tablet by mouth once dailyMultiple Vitamins-Minerals (MULTIVITAMIN ADULT PO) Take 1 tablet by mouth daily 0 06/06/2019 Discontinued (Stop Taking at Discharge)Multivitamin preparation (8 sources)Start: 53-34-5450Juoiq: 48-09-9575rkmwearwcd 20 mg delayed release oral capsule (16 sources)Proton Pump InhibitorStart: 72-45-3019unxj 1 capsule by mouth once dailyomeprazole (PRILOSEC) 20 MG delayed release capsule Take 20 mg by mouth daily 0 ActiveoxyCODONE hydrochloride 5 mg oral tablet (1 source)Opioid AgonistStart: 59-72-4613giju 5 mg by mouth every four hours as needed5 mg, Oral, EVERY 4 HOURS PRN, Starting on Sat09/05/21 at 1340, Until Discontinued, Pain Moderate (4-6), Pain Severe (7-10), Post-oppantoprazole 40 mg delayed release oral tablet (3 sources)Proton Pump InhibitorStart: 71-96-4379ferp 40 mg by mouth once daily before mg, Oral, DAILY BEFORE BREAKFAST, First dose on Sat09/06/21 at 0700, Until Discontinued Do not crush or break. Substituted for Omeprazole (PRILOSEC).Start: 56-17-5174ohop 20 mg by mouth once daily20 mg, Oral, DAILY, First dose on Sat12/06/20 at 1530 Do not crush or break.Start: 82-91-2148xbvm 40 mg by mouth once daily before gqoozfjry29 mg, Oral, DAILY BEFORE BREAKFAST, First dose on Sat06/05/19 at 0700 Do not crush or break. Substituted for Omeprazole (PRILOSEC).sertraline 100 mg oral tablet (20 sources)Serotonin Reuptake InhibitorStart: 99-06-3658klvacnhvqk 100 mg Tab 135 EA, 0 Refill(s), take 1 AND 1/2 tablets by mouth once daily, Refills(s) 0 Start Date: 11/14/23 Status: Ordered Repeat number: 1Start: 31-80-4697euxo 100 mg by mouth twice atnve786 mg, Oral, 2 TIMES DAILY, First dose on Sat09/05/21 at 2100, Until Discontinuedtake 1 tablet by mouth once dailySertraline HCl 100 MG take 1 AND 1/2 tablets by mouth once daily 90 for 90 Active5 ml sodium chloride 9 mg/ml injection (12 sources)Start: mL, IntraVENous, EVERY 12 HOURS SCHEDULED (2 times per day), First dose on Sat09/05/21 at 2100, Until Discontinued, Post-op Start: 54-61-0207BfckaUAPtmb, at 100 mL/hr, CONTINUOUS, Starting on Sat09/05/21 at 1400, Post-opStart: 64-37-3847xfrf 25 mL intravenously every hour as uolrkt37 mL, IntraVENous, at 100 mL/hr, PRN, If patient receiving piggyback infusions without ordered maintenance IV fluids or with frequent/long duration piggyback infusions, Starting on Sat09/05/21 at 1340 Administer at the same rate as the piggyback being infused. Post-opStart: 33-15-7969ifnu 10 mL intravenously once10 mL, IntraVENous, PRN, Starting on Sat09/05/21 at 1340, Until Discontinued, Line Care After everyIV line use Post-opStart: mL, Intravenous, EVERY 12 HOURS SCHEDULED (2 times per day), First dose on Sat12/06/20 at 2100, Post-op Start: 74-68-4289nnxx 10 mL intravenously once10 mL, Intravenous, PRN, Line Care, Starting on Sat12/06/20 at 1510 After every IV line use Post-opStart: 98-39-0204qdjj 25 mL intravenously every hour as cgkszy14 mL, Intravenous, at 100 mL/hr, PRN, If patient receiving piggyback infusions without ordered main tenance IV fluids or with frequent/long duration piggyback infusions, Starting on Sat12/06/20 at 1510 Administer at the same rate as the piggyback being infused. Post-opStart: 12-06-2020 End: .9 % sodium chloride bolusStart: 12-06-2020 End: 40-76-8466ojosqo chloride 0.9 % infusionStart: 37-36-715490 mL, Intravenous, EVERY 12 HOURS SCHEDULED (2 times per day), First dose on Sat06/04/19 at 2100, Post-opStart: 17-62-8583Vulcckexyfv, at 100 mL/hr, CONTINUOUS, Starting Sat06/04/19 at 1600Start: 43-80-9099exzn 10 mL intravenously once10 mL, Intravenous, PRN, Line Care, Starting Sat06/04/19 at 1536 After every IV line use Post-opsulfaSALAzine 500 mg oral tablet (11 sources)AminosalicylateStart: 30-29-4535qlfi 1000 mg by mouth twice daily 1,000 mg, Oral, 2 TIMES DAILY, First dose on Sat09/05/21 at 2100, Until DiscontinuedStart: 03-85-7190hxci 1000 mg by mouth twice daily1,000 mg, Oral, 2 TIMES DAILY, First dose on Sat12/06/20 at 2100Start: 45-57-0826oppm 1000 mg by mouth twice daily1,000 mg, Oral, 2 TIMES DAILY, First dose on Sat06/04/19 at 2100 take 2 tablets by mouth twice dailysulfaSALAzine (AZULFIDINE) 500 MG tablet Take 1,000 mg by mouth 2 times daily 0 Activethiamine 100 mg oral tablet (11 sources)Start: 45-80-1138xavj 100 mg by mouth once ovpil072 mg, Oral, DAILY, First dose on Sat09/06/21 at 0900, Until Discontinued Problems Active Problems Problem ClassificationProblemDateDocumented DateEpisodic/ChronicAbdominal pain (3 sources)Abdominal pain; Translations: [Unspecified abdominal pain]Episodic Acute and unspecified renal failure (1 source)Acute kidney failure, unspecified; Translations: [ACUTE KIDNEY FAILURE UNSPECIFIED]Onset: 62-84-9245ThxdpudmFglwkoe dysrhythmias (17 sources)Atrial fibrillation; Translations: [Unspecified atrial fibrillation] Onset: 159678-04-0811NjinlgzTxplqxe kidney disease (3 sources)Chronic kidney disease stage 4; Translations: [Chronic kidney disease, stage 4 (severe)]ChronicConditions associated with dizziness or vertigo (2 sources)Dizziness and giddiness; Translations: [Dizziness and giddiness] Onset: 28-77-2227KsojethjIoasjtgcnp heart failure; nonhypertensive (1 source)Heart failure, unspecified; Translations: [HEART FAILURE UNSPECIFIED] Onset: 57-15-3791CbymlyiPlvbywbz atherosclerosis and other heart disease (2 sources)Atherosclerotic heart disease of [place] coronary artery without angina pectoris; Translations: [Coronary atherosclerosis due to calcified coronary lesion]Onset: 11-66-5388GqporeoCparugzquy and other anemia (3 sources)Iron deficiency anemia; Translations: [Iron deficiency anemia, unspecified]EpisodicDeficiency and other anemia (3 sources)Deficiency anemias; Translations: [Nutritional anemia, unspecified] EpisodicDiabetes mellitus with complications (6 sources)Type 2 diabetes mellitus with diabetic chronic kidney disease; Translations: [Type 2 diabetes mellitus with diabetic autonomic (poly)neuropathy]Onset: 38-20-2775XaxgyqjIczrzhpw mellitus without complication (17 sources)Type 2 diabetes mellitus without complication; Translations: [Type 2 diabetes mellitus without complications]Onset: hronic Disorders of lipid metabolism (8 sources)HyperlipidemiaOnset: 837365-83-3727BfefkwlM Codes: Fall (1 source)Unspecified fall, initial encounter; Translations: [UNSPECIFIED FALL INITIAL ENCOUNTER]Onset: 72-83-9424JmjhfnkuXjxxfvznuu disorders (1 source)Gastro-esophageal reflux disease without esophagitis; Translations: [GERD WITHOUT ESOPHAGITIS]Onset: 92-95-4802OnvjmswIdzpmyohi hypertension (20 sources)Essential hypertension; Translations: [Essential (primary) hypertension]Onset: 380687-17-7349HajkdyvQvaco and electrolyte disorders (1 source)Dehydration; Translations: [DEHYDRATION]Onset: 02-70-7319Hdneoshx Fracture of upper limb (1 source)Closed fracture of shaft of left humerus; Translations: [Unspecified fracture of shaft of humerus, left arm, initial encounter for closed fracture] EpisodicGastrointestinal hemorrhage (1 source)Rectal hemorrhage; Translations: [Rectal Bleeding]Episodic Genitourinary symptoms and ill-defined conditions (16 sources)Retention of urine; Translations: [Retention of urine, unspecified] Onset: 31-87-9056QyxshojhXvotajmf; including migraine (7 sources)Rstuyigk75-73-2944VpctfdsePelevqgfrxj of prostate (13 sources)Benign prostatic hypertrophy without outflow obstruction; Translations: [Benign prostatic hyperplasia without lower urinary tract symptoms]Onset: 76-13-4254CqqbvnpXfichwcvvfaj with complications and secondary hypertension (1 source)Hypertensive heart and chronic kidney disease with heart failure and stage 1 through stage 4 chronic kidney disease, or unspecified chronic kidney disease; Translations: [HTN HRT CKD W/HF STAGE 1-4/UNS CKD]Onset: 10-23-2022 ChronicInflammatory conditions of male genital organs (9 sources)Epididymitis; Translations: [Epididymitis]Onset: 79-39-1158Uwypmcie Mood disorders (3 sources)Recurrent major depression; Translations: [Major depressive disorder, recurrent, unspecified]ChronicMood disorders (1 source)Mood disorders; Translations: [DEPRESSION UNSPECIFIED]Onset: 28-17-9386Tnemwcvegjefth (7 sources)Dvymirxjw20-95-3452LzblhtvGugpn aftercare (1 source)Other collections and archives director (current) drug therapy; Translations: [OTH EMR TRAINER CURRENT DRUG THERAPY]Onset: 84-56-0197AfclnycpJppru aftercare (1 source)skilled nursing (current) use of non-steroidal anti-inflammatories (NSAID); Translations: [EMR TRAINER USE NSAID]Onset: 59-17-8533RzcrdxgiKobto aftercare (1 source)inspector bullet slugs (current) use of aspirin; Translations: [EMR TRAINER CURRENT USE OF ASPIRIN]Onset: 62-53-3648NtxosmykYdtus and ill-defined heart disease (2 sources)Cardiomegaly; Translations: [Cardiomegaly]Onset: 58-47-7674Ehvcbvh Other circulatory disease (1 source)Orthostatic hypotension; Translations: [ORTHOSTATIC HYPOTENSION]Onset: 17-28-6991RokxaqjcHrueh connective tissue disease (3 sources)History of reverse prosthetic total arthroplasty of left shoulder; Translations: [Presence of left artificial shoulder joint]Onset: 09-06-2021 ChronicOther connective tissue disease (1 source)Presence of right artificial shoulder joint; Translations: [PRESENCE RT ARTIFICIAL SHOULDER JNT]Onset: 64-29-8320XdjrcsoNqule connective tissue disease (1 source)Spasm; Translations: [Other muscle spasm]EpisodicOther hereditary and degenerative nervous system conditions (1 source)Essential tremor; Translations: [ESSENTIAL TREMOR]Onset: 10-23-2022 ChronicOther injuries and conditions due to external causes (1 source)History of falling; Translations: [HISTORY OF FALLING]Onset: 63-75-8270GiddashgIxkkx liver diseases (7 sources)Inflammatory disease of vgyth43-61-5388PowwwgaOcdrw male genital disorders (3 sources)Hydrocele of testis; Translations: [Hydrocele, unspecified]Onset: 30-25-0921QgiygdhlWytrv male genital disorders (6 sources)Disorder of male genital dqqdy94-16-5808UltcjnefFtthv nervous system disorders (2 sources)Other chronic pain; Translations: [OTHER CHRONIC PAIN]Onset: 43-82-1284JawbtloCysyx nervous system disorders (1 source)Other specified mononeuropathies; Translations: [OTHER SPECIFIED MONONEUROPATHIES]Onset: 55-38-1057XwahvxuIfqny nervous system disorders (3 sources)Postoperative pain ; Translations: [Other acute postprocedural pain] EpisodicOther nervous system disorders (2 sources)Other abnormalities of gait and mobility; Translations: [Other abnormalities of gait and mobility]Onset: 98-64-9927BxiuomtyVqaqt nervous system disorders (2 sources)Impairment of balance; Translations: [Other abnormalities of gait and mobility]EpisodicOther non-traumatic joint disorders (1 source)Pain in right shoulder; Translations: [PAIN IN RIGHT SHOULDER]Onset: 86-16-7790KcfkzcknNdain non-traumatic joint disorders (1 source)Pain in left shoulder; Translations: [PAIN IN LEFT SHOULDER]Onset: 86-60-5182QyuigughKcdeo non-traumatic joint disorders (1 source)Pain in right hip; Translations: [PAIN IN RIGHT HIP]Onset: 09-27-2022 EpisodicOther non-traumatic joint disorders (5 sources)Pain in left hip; Translations: [PAIN IN LEFT HIP]Onset: 09-22-2022 EpisodicOther non-traumatic joint disorders (1 source)Shoulder painOnset: 12-67-2888KltplbonMcfyu screening for suspected conditions (not mental disorders or infectious disease) (6 sources)Encounter for screening for malignant neoplasm of prostate; Translations: [Screening for malignant neoplasm done]Onset: 37-49-0088Gkokmvyi Pathological fracture (1 source)Pathological fracture, right humerus, initial encounter for fracture; Translations: [PATH FX RT HUMERUS INITIAL ENC FX]Onset: 25-72-0845Ghrcpwlt Residual codes; unclassified (1 source)Dependence on other enabling machines and devices; Translations: [DEPEND OTH ENABLING MACHINES AND DEVICE]Onset: 94-71-5329FfbxlfpCmchtxbf codes; unclassified (1 source)Pain; Translations: [Pain, unspecified]EpisodicResidual codes; unclassified (1 source)Other specified postprocedural states; Translations: [OTH SPECIFIED POSTPROCEDURAL STATES]Onset: 26-93-0873OoejgipoBxvrilcyri arthritis and related disease (8 sources)Rheumatoid arthritisOnset: 883559-39-9281VpfwuvaCriuzwuwl and history of mental health and substance abuse codes (1 source)Personal history of nicotine dependence; Translations: [PERSONAL HISTORY OF NICOTINE DEPEND]Onset: 02-53-6886ZqzapxipTzwuqbyimon; intervertebral disc disorders; other back problems (20 sources)Degeneration of lumbar intervertebral disc; Translations: [Other intervertebral disc degeneration, lumbar region]Onset: ChronicSpondylosis; intervertebral disc disorders; other back problems (20 sources)Nerve root disorder; Translations: [Radiculopathy, site unspecified] Onset: 12-91-4325YngpgffvPqlnlqt (2 sources)Syncope and collapse; Translations: [SYNCOPE AND COLLAPSE]Onset: 44-07-4849CsylygrcOyfuqjoobxxt (3 sources)LOW BACK PAIN, UNSPECIFIED; Translations: [LOW BACK PAIN, UNSPECIFIED]Onset: 12-47-3775Rulrdmlswiqj (1 source)CHRN KIDNEY DISEASE STG 3 UNSP; Translations: [CHRN KIDNEY DISEASE STG 3 UNSP]Onset: 50-18-2208Otrfreipgdvo (1 source)CONTACT W/AND (SUSP) EXPOS COVID-19; Translations: [CONTACT W/AND (SUSP) EXPOS COVID-19]Onset: 63-70-1742Artqawumkstl (5 sources)Patient encounter hyghil15-63-8612Fqrhwvq tract infections (1 source)Urinary tract infection, site not specified; Translations: [UTI SITE NOT SPECIFIED]Onset: 72-64-4895Mnzpbpvb Past or Other Problems Problem ClassificationProblemDateDocumented DateEpisodic/ChronicComplications of surgical procedures or medical care (1 source)Periprosthetic fracture around internal prosthetic left shoulder joint, subsequent encounter; Translations: [PERIPRS FX ARND IP LT SHLDR JNT SUB] Onset: 32-98-4257XwlovorsPhuvw connective tissue disease (7 sources)H/O: arthrodesis; Translations: [Arthrodesis status]Onset: 03-18-2020 47-36-8438MdviqmrmGifga connective tissue disease (3 sources)Rotator cuff arthropathy of left shoulder; Translations: [Unspecified rotator cuff tear or rupture of left shoulder, not specified as traumatic] Onset: 83-39-9466NuwxupnpHjqxd connective tissue disease (1 source)Arthrodesis status; Translations: [ARTHRODESIS STATUS]Onset: 54-53-8554RmzoxztnAjvep connective tissue disease (4 sources)Impingement syndrome of right shoulder; Translations: [IMPINGEMENT SYNDROME RIGHT SHOULDER]Onset: 04-28-7048UlfkjznjSitsn fractures (9 sources)Pseudoarthrosis of spine; Translations: [Unspecified fracture of unspecified lumbar vertebra, subsequent encounter for fracture with nonunion] Onset: 98-88-1178ZckrfpcbJhbjs lower respiratory disease (1 source)Dyspnea, unspecified; Translations: [DYSPNEA UNSPECIFIED]Onset: 42-30-2103AwiayvsqPnisa non-traumatic joint disorders (1 source)Other specified joint disorders, right shoulder; Translations: [OTH SPECIFIED JOINT D/O RT SHOULDER]Onset: 37-22-1358TicagcguQwzgz non-traumatic joint disorders (1 source)Pain in unspecified joint; Translations: [PAIN IN UNSPECIFIED JOINT] Onset: 89-09-6004WyoybwjtUhiavckw codes; unclassified (7 sources)Absent kidney; Translations: [Acquired absence of kidney]Onset: 840971-15-4436LgrlbweqRdskusarittn (1 source)LOW BACK PAIN, UNSPECIFIED; Translations: [LOW BACK PAIN, UNSPECIFIED] Onset: 09-18-2022 Results Test NameValueInterpretationReference RangeFacilityPatient Letter FTMCon 25-21-8038Fzjncko Letter FTMCPatient Letter FT March 22, 2025 [address] [place] [address] : 1955 Dear Deondre, You missed your scheduled appointment on: 03/22/25. Please note our appointment slots fill quickly.When you fail to cancel or reschedule an appointment the office is unable to fill the appointment slot that was reserved for you. In the future, we ask that you call 24 hours in advance to cancel your appointment. Our current reminder system gives you the opportunity to cancel by responding to our reminder text, phone call or email. You can also call the office to reschedule during normal business hours or use our on-line scheduling portal at your convenience. Our goal is to provide convenient and quality care to all of our patients. We appreciate your consideration regarding any future cancellations. Sincerely, [facility] [address] [address] OvflfdBgtvlsEast [facility] Regional HospitalAmbulatory Visit Summaryon 16-21-9152Ecocrjnuwx Visit SummaryAmbulatory Visit Summary DEONDRE LR :1955 Visit Date:01/18/2025 Ambulatory Visit Instructions Your Diagnosis BPH (benign prostatic hyperplasia) Screening for prostate cancer Incomplete emptying of bladder Your Care Team Attending Physician - JERONIMO Benoit APRN, Usha Bolton Primary Care Physician - MIKE YUAN MD This Is Your Medications List finasteride (finasteride 5 mg Tab) vibegron (Gemtesa 75 mg oral tablet) Contact prescribing physician if questions or concerns acetaminophen-hydrocodone (acetaminophen-hydrocodone 325 mg-5 mg oral tablet) adalimumab (adalimumab 20 mg/0.4 mL subcutaneous kit) alendronate (alendronate 70 mg Tab) amitriptyline (amitriptyline 50 mg Tab) atorvastatin (atorvastatin 20 mg Tab) calcium citrate (calcium (as calcium citrate) 200 mg oral tablet) duloxetine (duloxetine 60 mg oral delayed release capsule) folic acid (folic acid 1 mg Tab) [...] of lumbar fusion, Left nephrectomy. Discharge Vitals Heart Rate (Peripheral) 64 Blood Pressure 96/59 Height 165 cm Height 65 in Weight 78.8 kg Weight 173.724 lb BMI 28.94 What to do next Scheduled Follow-Up Appointments Saturday 1:50 PM EDT With: JERONIMO Benoit APRN, Usha Bolton Where: [facility] [address] [place] [address]- Medications What How Much When Why Instructions New vibegron (Gemtesa 75 mg oral tablet) 1 Tablets By Mouth Every day Refills: 2 Pickup at [facility] #[id number] Unchanged finasteride (finasteride 5 mg Tab) 1 Tablets By Mouth Every day BPH (benign prostatic hyperplasia) Pickup at [facility] #[id number] Unchanged acetaminophen-hydrocodone (acetaminophen-hydrocodone 325 mg-5 mg oral tablet) 60 EA, [...] 1 tablet by mouth in the morning. Contactprescribing physician if questions or concerns Unchanged omeprazole (omeprazole 20 mg Cap-DR) 40 Unknown, ORAL, 0 Refill(s) Contact prescribing physician if questions or concerns Unchanged prazosin (prazosin 1 mg Cap) 3 Unknown, ORAL, 1 Refill(s) Contact prescribing physician if questions or concerns Unchanged sertraline (sertraline 100 mg Tab) 135 EA, 0 Refill(s), take 1 AND 1/ 2 tablets by mouth once daily Contact prescribing physician if questions or concerns Pharmacy Information [facility] #[id number]: [address] [place], [place] [id number] [phone] (more content not included)...[facility] HospitalUrology Office/Clinic Noteon [id number] Office/Clinic NoteUrology Office/Clinic Note Chief Complaint 1 month HPI Staff 69 year old male presents for 1 month w/ PVR. prev dx: BPH, incomplete bladder emptying *Finasteride 5mg ( pt state this was supposed to be called in to [facility] at last OV but he did not recieve it yet so he has not been taking it) Denies dysuria, denies visible blood IPSS:23 History of Present Illness I have reviewed and verified the staff HPI to be accurate for this encounter. Portions of this record may have been created with voice recognition artificial intelligence software, specifically [employer], [employer] and or [employer]. Substitutions may have occurred due to the inherent limitations of voice recognition and artificial intelligence software. Review of Systems PHQ Score Initial Depression Screen Score: 0 SCORE Physical Exam Vitals & Measurements HR: 64(Peripheral) BP: 96/59 HT: 65 in HT: 165 cm WT: 173.724 lb WT: 78.8 kg BMI: 28.94 General: Well developed, well nourished, in no acute distress. Assessment/Plan PRW pt (saw in consult at [facility] prior to initial OV) 1. BPH (benign prostatic hyperplasia) (N40.0: Benign prostatic hyperplasia without lower urinary tract symptoms) IPSS 23 (21), QoL 3 UA today w/o blood or infection Pt is taking prazosin and finasteride. Reports no significant improvement in urinary sxs since starting finasteride. Previously discussed further eval w/ cysto, but pt stated he needed time to consider this. Today, pt still does not wish to move forward w/ this. Pt does have moderate stream sxs, as well has OAB sxs. Discussed separate, but related bladder sxs.Can trial bladder med. see #2 -cont finasteride Ordered: finasteride, 5 mg = 1 tab(s), Oral, Daily, # 30 tab(s), Refills(s) 11, Pharmacy: [facility] #[id number], 165, cm, 01/18/25 14:37:00 EDT, Height/Length Dosing, 78.8, kg, 01/18/25 14:37:00 EDT, Weight Dosing 47070 Measure Post Void residual urine and/or bladder capacity by US- non-imaging Urnls Dip Stick Auto w/o Microscopy POC 55730 2. Urinary urgency (R39.15: Urgency of urination) pts primary complaint Discussed the use of anticholinergic and beta 3 agonist for bladder control. Often, insurance requires the failure of 1 or 2 anticholinergic medications before considering beta 3 agonist such as Myrbetriq/Gemtesa. Even with insurance coverage, beta 3 agonist may be cost prohibitive. We discussed the most common side effects of anticholinergic beta 3 agonist. May treat these side effects symptomatically, but if severe, stop medication and report to office. Patient would like to trial medication at this time. Will avoid anticholinergic at this time to avoid retention. Not a candidate for myrbetriq bc he is on metoprolol. -Start Gemtesa, rx sent to pharmacy -f/u 3 mos w/ PVR 3. Screening for prostate cancer (Z12.5: Encounter for screening for malignant neoplasm of prostate) PSA 06/02/24 - 1.30 Denies fam hx -due for PSA May 2025 not addressed today 4. Incomplete emptying of bladder (R33.9: Retention of urine, unspecified) PVR (cc): - 150 (pt refused catheter at the time) 01/14/24 - 34 06/25/23 - 72 01/18/25 - 80 -cont to monitor w/ addition of bladder med Orders: vibegron, 75 mg = 1 tab(s), Oral, Daily, # 30 tab(s), Refills(s) 2, [facility]acy: [facility] #[id number], 165, cm, 01/18/25 14:37:00 EDT, Height/Length Dosing, 78.8, kg, 01/18/25 14:37:00 EDT, Weight Dosing Follow-up With When Contact Information [employer] REPA[employer], [employer] ENGINE[employer], Usha X, FAM, URL Additional Instructions: 3 mos PVR Patient Education Overactive Bladder, Adult Benign Prostatic Hyperplasia Problem List/Past Medical History Ongoing Arthritis Atrial fibrillation BPH (benign prostatic hyperplasia) Epididymitis Head ache Hepatitis Hydrocele Hyperlipidemia Hypertensive disorder Incomplete emptying of bladder Rheumatoid arthritis Screening for prostate cancer Spondylosis Type 2 diabetes mellitus Historical No qualifying data Procedure/Surgical History History of lumbar fusion, Left nephrectomy. Medications acetaminophen-hydrocodone 325 mg-5 mg oral tablet adalimumab 20 mg/0.4 mL subcutaneous kit alendronate 70 mg Tab amitriptyline 50 mg Tab atorvastatin 20 mg Tab calcium (as calcium citrate) 200 mg oral tablet duloxetine 60 mg oral delayed release capsule finasteride 5 mg Tab, 5 mg= 1 tab(s), Oral, Daily, 11 refills folic acid 1 mg Tab furosemide 40 mg Tab gabapentin 300 mg Cap Gemtesa 75 mg oral tablet, 75 mg= 1 tab(s), Oral, Daily, 2 refills lidocaine Top 5% film Patch lisinopril 10 mg Tab Metoprolol tartrate 50 mg Tab mirtazapine 15 mg Tab multivitamin omeprazole 20 mg Cap-DR prazosin 1 mg Cap sertraline 100 mg Tab Allergies No Known Medication Allergies Social History Alcohol - Denies Alcohol Use, 01/14/2024 Tobacco Former smoker, quit more than 30 days ago Tobacco Use:. Never Smokeless Tobacc (more content not included)...[facility] HospitalComment on above: Result Comment: Electronically Signed By: JERONIMO Benoit APRN, [place] X\.br\Date and Time Signed: 01/18/25 14:57 EDTUrology Office/Clinic Noteon 12-28-2024 Urology Office/Clinic NoteUrology Office/Clinic Note Chief Complaint 6 month follow up HPI Staff 69 year old male presents for 6 month f/u NO LABS Prev dx: BPH, incomplete bladder emptying Pt states no new symptoms they are still the same Denies pain or burning, denies visible blood History of Present Illness I have reviewed and verified the staff HPI to be accurate for this encounter. Portions of this record may have been created with voice recognition artificial intelligence software, specifically [employer], [employer] and or [employer]. Substitutions may have occurred due to the inherent limitations of voice recognition and artificial intelligence software. Review of Systems PHQ Score Initial Depression Screen Score: 0 SCORE Physical Exam Vitals & Measurements HR: 70(Peripheral) RR: 16 BP: 110/70 HT: 65 in HT: 165 cm WT: 173.724 lb WT: 78.8 kg BMI: 28.94 General: Well developed, well nourished, in no acute distress. Assessment/Plan 1. BPH (benign prostatic hyperplasia) (N40.0: Benign prostatic hyperplasia without lower urinary tract symptoms) IPSS 19 (17), QoL 6 UA today w/o blood or infection Currently taking prazosin through PCP and finasteride 5 mg QD. Denies SEs. Does not feel that his urinary sxs have improved since starting finasteride. Discussed does have some OAB sxs, but moderate stream sxs as well. We discussed further workup w/ cysto and risks/benefits of procedure. Pt declines at this time, would like more time to think about this. -f/u 1-2 mos per pt preference Ordered: Body Mass Index (BMI) documented 3008F Current tobacco non-user 1036F Depression Screening Negative 3352F Influenza immunization status assessed 1030F Medication list documented in medical record 1159F Most recent diastolic blood pressure <80 mm Hg 3078F Patient screen for fall risk: no falls in last year or 1 fall with no injury in last year 1101F Review of all meds by a prescribing practitioner or clinical pharmacist documented in EHR 1160F Systolic BP <130 mm Hg (Most Recent) 3074F Urnls Dip Stick Auto w/o Microscopy POC 75065 2. Incomplete emptying of bladder (R33.9: Retention of urine, unspecified) PVR (cc): - 150 (pt refused catheter at the time) 01/14/24 - 34 06/25/23 - 72 has never had significant PVR -cont voiding maneuvers, finasteride 3. Screening for prostate cancer (Z12.5: Encounter for screening for malignant neoplasm of prostate) PSA 06/02/24 - 1.30 Denies fam hx -due for PSA May 2025 Follow-up No qualifying data available Patient Education Benign Prostatic Hyperplasia Problem List/Past Medical History Ongoing Arthritis Atrial fibrillation BPH (benign prostatic hyperplasia) Epididymitis Head ache Hepatitis Hydrocele Hyperlipidemia Hypertensive disorder Incomplete emptying of bladder Rheumatoid arthritis Screening for prostate cancer Spondylosis Type 2 diabetes mellitus Historical No qualifying data Procedure/Surgical History History of lumbar fusion, Left nephrectomy. Medications acetaminophen-hydrocodone 325 mg-5 mg oral tablet adalimumab 20 mg/0.4 mL subcutaneous kit alendronate 70 mg Tab amitriptyline 50 mg Tab atorvastatin 20 mg Tab calcium (as calcium citrate) 200 mg oral tablet duloxetine 60 mg oral delayed release capsule finasteride 5 mg Tab, 5 mg= 1 tab(s), Oral, Daily, 11 refills folic acid 1 mg Tab furosemide 40 mg Tab gabapentin 300 mg Cap lidocaine Top 5% film Patch lisinopril 10 mg Tab Metoprolol tartrate 50 mg Tab mirtazapine 15 mg Tab multivitamin omeprazole 20 mg Cap-DR prazosin 1 mg Cap sertraline 100 mg Tab Allergies No Known Medication Allergies Social History Alcohol - Denies Alcohol Use, 01/14/2024 Tobacco Former smoker, quit more than 30 days ago Tobacco Use:. Never Smokeless Tobacco Use:. Cigarettes, 12/28/2024 Family History Family history is unknown Immunizations Vaccine Date Status influenza virus vaccine, inactivated 01/30/2023 Recorded diphtheria/pertussis, acel/tetanus adult 10/31/2022 Recorded zoster vaccine, inactivated 04/11/2022 Recorded influenza virus vaccine, inactivated 03/17/2022 Recorded zoster vaccine, inactivated 10/12/2021 Recorded pneumococcal 23-valent vaccine 07/28/2021 Recorded pneumococcal 13-valent vaccine 04/14/2021 Recorded influenza virus vaccine, inactivated 02/17/2021 Recorded SARS-CoV-2 (COVID-19) mRNA BNT-162b2 vax 11/14/2020 Recorded SARS-CoV-2 (COVID-19) mRNA BNT-162b2 vax 10/27/2020 Recorded influenza virus vaccine, inactivated 02/10/2020 Recorded pneumococcal 23-valent vaccine 03/09/2019 Recorded influenza virus vaccine, inactivated 03/09/2019 Recorded pneumococcal 13-valent vaccine 03/20/2017 Recorded influenza virus vaccine, inactivated 03/20/2017 Recorded zoster vaccine live 02/27/2016 Recorded Lab Results Ambulatory Point of Care Results Bilirubin Urine Dipstick: Negative (12/28/24 11:37: (more content not included)...[facility] HospitalComment on above:Result Comment: Electronically Signed By: JERONIMO Benoit APRN, [place]\.br\Date and Time Signed: 12/28/24 12:22 EDTAmbulatory Visit Summaryon [id number] Visit Summary Ambulatory Visit Summary DEONDRE LR :1955 Visit Date:06/25/2024 Ambulatory Visit Instructions Your Diagnosis BPH (benign prostatic hyperplasia) Incomplete emptying of bladder Screening for prostate cancer Epididymitis Hydrocele Your Care Team Attending Physician - JERONIMO Benoit APRN, [place] X Primary Care Physician - MIKE YUAN MD This Is Your Medications List acetaminophen-hydrocodone (acetaminophen-hydrocodone 325 mg-5 mg oral tablet) adalimumab (adalimumab 20 mg/0.4 mL subcutaneous kit) alendronate (alendronate 70 mg Tab) amitriptyline (amitriptyline 50 mg Tab) atorvastatin (atorvastatin 20 mg Tab) calcium citrate (calcium (as calcium citrate) 200 mg oral tablet) duloxetine (duloxetine 60 mg oral delayed release [...] of lumbar fusion, Left nephrectomy. Discharge Vitals Heart Rate (Peripheral) 61 Blood Pressure 121/70 Height 165 cm Height 65 in Weight 77 kg Weight 169.756 lb BMI 28.28 What to do next Scheduled Follow-Up Appointments Saturday 11:40 AM EDT With: JERONIMO Benoit APRN, [place] Where: [facility] [address] [place] [address]- Medications What How Much When Why Instructions New finasteride (finasteride 5 mg Tab) 1 Tablets By Mouth Every day BPH (benign prostatic hyperplasia) Refills: 11 Pickup at [facility] #[id number] Unchanged acetaminophen-hydrocodone (acetaminophen-hydrocodone 325 mg-5 mg oral tablet) 60 EA, 0 Refill(s), take 1 tablet by mouth twice a day NEEDED FOR PAIN Unchanged adalimumab (adalimumab 20 mg/ 0.4 mL subcutaneous kit) 40 Unknown, subcutaneous, 0 Refill(s), Inject 0.8 mL (40 mg total) under the skin once a week. DO NOT RESUME UNTIL OCTOBER 14 Unchanged alendronate (alendronate 70 mg Tab) 70 Unknown, ORAL, 2 Refill(s) Unchanged amitriptyline (amitriptyline 50 mg Tab) 30 EA, 0 Refill(s), take 1 tablet by mouth at bedtime Unchanged atorvastatin (atorvastatin 20 mg Tab) 20 Unknown, ORAL, 0 Refill(s) Unchanged calcium citrate (calcium (as calcium citrate) 200 mg oral tablet) 200 Unknown, ORAL, 0 Refill(s) Unchanged duloxetine (duloxetine 60 mg oral delayed release capsule) 90 EA, 0 Refill(s), take 1 capsule by mouth once daily Unchanged folic acid (folic acid 1 mg Tab) 1 Unknown, ORAL, 0 Refill(s) Unchanged furosemide (furosemide 40 mg Tab) 40 Unknown, ORAL, 0 Refill(s) Unchanged gabapentin (gabapentin 300 mg Cap) 300 Unknown, ORAL, 0 Refill(s) Unchanged lidocaine topical (lidocaine Top 5% film Patch) TRANSDERMAL, 0 Refill(s) Unchanged lisinopril (lisinopril 10 mg Tab) 10 Unknown, ORAL, 0 Refill(s) Unchanged metoprolol (Metoprolol tartrate 50 mg Tab) 50 Unknown, ORAL, 0 Refill(s) Unchanged mirtazapine (mirtazapine 15 mg Tab) 15 Unknown, ORAL, 2 Refill(s) Unchanged multivitamin 1 Unknown, oral, 0 Refill(s), Take 1 tablet by mouth in the morning. Unchanged omeprazole (omeprazole 20 mg Cap-DR) 40 Unknown, ORAL, 0 Refill(s) Unchanged prazosin (prazosin 1 mg Cap) 3 Unknown, ORAL, 1 Refill(s) Unchanged sertraline (sertraline 100 mg Tab) 135 EA, 0 Refill(s), take 1 AND 1/ 2 tablets by mouth once daily Pharmacy Information [facility] #[id number]: [address] [place], [place] [id number] [phone] Allergies No Known Medication Allergies Problems Ongoing - Any problem that you are currently receiving treatment for. Arthritis Atrial fibrillation BPH (benign prostatic hyperplasia) Epididymitis Head ache Hepatitis Hydrocele Hyperlipidemia Hypertensive disorder Incomplete emptying of bladder Rheumatoid arthritis Screening for prostate cancer Spondylosis Type 2 diabetes mellitus Patient Survey You may receive a survey via text or e-mail asking about your office visit. Please share your experience with us by completing your survey. We appreciate your feedback and thank you for choosing us for your care. [facility] CenterUrology Office/Clinic Noteon [id number] Office/Clinic NoteUrology Office/Clinic Note Chief Complaint 4 month f/u with PSA and PVR HPI Staff 4 month follow up w/PSA & PVR Dx: epididymitis, BPH, incomplete emptying of bladder and hydrocele. Finasteride 5mg qd IPSS:17 OBIE: 3 PVR: 72 mL Dysuria: no Incomplete bladder emptying: somtimes Hematuria: no Frequency: yes Urgency: about half the time Nocturia: 3x Stream: weak Leaking: yes Post void dripping: yes Wearing pads/ Depends: no Urge incontinence: sometimes Stress incontinence: no Incontinence without Sensory Awareness: no Abdominal pain: no Flank pain: somtimes Sexual complaints: _ History of Present Illness Tests reviewed: UA and PSA. I have reviewed the previous health record information and history for this patient from JERONIMO Rincon APRN. I have reviewed and verified the staff [...] See HPI. Physical Exam Vitals & Measurements HR: 61(Peripheral) BP: 121/70 HT: 65 in HT: 165 cm WT: 77 kg WT: 169.756 lb BMI: 28.28 General Appearance: alert, no distress, well nourished, well developed male. Assessment/Plan 4 month follow up w/PSA & PVR OBIE 3 1. BPH (benign prostatic hyperplasia) (N40.0: Benign prostatic hyperplasia without lower urinary tract symptoms) IPSS 17 (27), QoL 3 UA today shows trace protein. Reviewed UA. Pt is currently taking prazosin 4 mg QD (managed by his PCP) and Finasteride 5mg. Pt feels like urinary sxs have improved since finasteride has reached full effect. We discussed possibility of cysto in the future if sxs become more bothersome, but pt declines at this time. -Discussed a cysto but at this time patient declines. -Cont Finasteride 5mg, prazosin through PCP Follow up 6 MONTHS or sooner if needed. Pt understands and agrees with plan. 2. Incomplete emptying of bladder (R33.9: Retention of urine, unspecified) PVR (cc): - 150 (pt refused catheter at the time) 01/14/24 - 34 06/25/23 - 72 UA today shows trace protein. Patient reports feeling like he cannot empty sometimes. Discussed PVR, mostly empty. -Continue to monitor. 3. Screening for prostate cancer (Z12.5: Encounter for screening for malignant neoplasm of prostate) PSA 06/02/24 - .30 Discussed PSA level. Denies fam hx of prostate cancer. -Cont to monitor PSA annually Follow-up With When Contact Information JERONIMO Benoit APRN, Usha Bolton, FAM, URL Additional Instructions: Follow up 6 MONTHS or sooner if needed Patient Education Benign Prostatic Hyperplasia Kyleigh Pineda, personally scribed for JERONIMO Rincon APRN on 06/25/2024 12:54:37. . Documentation recorded by the giovana Peterson accurately reflects the services(s) I performed and decisions made by me. Authenticated by Usha Benoit APRN, FNP-C on 06/25/2024 13:11:08. Problem List/Past Medical History Ongoing Arthritis Atrial fibrillation BPH (benign prostatic hyperplasia) Epididymitis Head ache Hepatitis Hydrocele Hyperlipidemia Hypertensive disorder Incomplete emptying of bladder Rheumatoid arthritis Screening for prostate cancer Spondylosis Type 2 diabetes mellitus Historical No qualifying data Procedure/Surgical History History of lumbar fusion, Left nephrectomy. Medications acetaminophen-hydrocodone 325 mg-5 mg oral tablet adalimumab 20 mg/0.4 mL subcutaneous kit alendronate 70 mg Tab amitriptyline 50 mg Tab atorvastatin 20 mg Tab calcium (as calcium citrate) 200 mg oral tablet duloxetine 60 mg oral delayed release capsule finasteride 5 mg Tab, 5 mg= 1 tab(s), Oral, Daily, 11 refills folic acid 1 mg Tab furosemide 40 mg Tab gabapentin 300 mg Cap lidocaine Top 5% film Patch lisinopril 10 mg Tab Metoprolol tartrate 50 mg Tab mirtazapine 15 mg Tab multivitamin omeprazole 20 mg Cap-DR prazosin 1 mg Cap sertraline 100 mg Tab Allergies No Known Medication Allergies Social History Alcohol - Denies Alcohol Use, 01/14/2024 Tobacco Former smoker, quit more than 30 days ago Tobacco Use:. Never Smokeless Tobacco Use:. Cigarettes, 06/25/2024 Immunizations Vaccine Date Status influenza virus vaccine, inactivated 01/30/2023 Recorded influenza virus vaccine, inactivated 03/17/2022 Recorded influenza virus vaccine, inactivated 02/17/2021 Recorded SARS-CoV-2 (COVID-19) mRNA BNT-162b2 vax 10/26 (more content not included)... [facility] HospitalComment on above:Result Comment: Electronically Signed By: JERONIMO Benoit APRN, Usha Bolton\.br\Date and Time Signed: 06/25/24 13:11 EST\.br\Electronically Co-Signed By: Kyleigh Peterson\.br\Date and Time Co- Signed: 06/25/24 12:58 ESTPatient Letter [id number] Letter [facility] Patient [facility] May 12, 2024 DEONDRE LR [address] [place] [id number] : 1955 Dear Deondre, You missed your scheduled appointment on: 05/12/2024 with Usha CASAREZ. Please note our appointment slots fill quickly. When you fail to cancel or reschedule an appointment the office is unable to fill the appointment slot that was reserved for you. In the future, we ask that you call 24 hoursin advance to cancel your appointment. Our current reminder system gives you the opportunity to cancel by responding to our reminder text, phone call or email. You can also call the office to reschedule during normal business hours or use our on-line scheduling portal at your convenience. Our goal is to provide convenient and quality care to all of our patients. We appreciate your consideration regarding any future cancellations. Sincerely, [facility] [address] [facility] [address] [facility], [place] [address] BmupbwIhkncwEast [facility] Regional Hospital36on [phone] let him know his ECHO looked good, [...] LAAO device with his hx of falls. Thanks!NormalSelect Medical Cleveland Clinic Rehabilitation Hospital, Edwin ShawTelephoneon [phone] [id number] Deondre Lr Franci 1955 M Date Provider Department Center 07/29/2023 RAVEN CARVAJAL Job . No family history on fileNormalUniversity Cherrington HospitalOffice Visiton [id number] [id number] GeronimoDeondre Koroma 1955 M Date Provider Department Center 07/18/2023 RAVEN CARVAJAL [facility] No family history on file Level of Service:33356 SC OFFICE/OUTPATIENT ESTABLISHED MOD MDM [facility] conon [id number] head/brain wo [facility] [place] [address] CT Scan Report Signed Patient: Deondre Lr MR#: [id number] : 1955 Acct:[id number] Age/Sex: 67 / M ADM Date: 12/12/22 Loc: CT Room: Type: [facility] Attending Dr: Berta Hernandez APRN, [employer]INEER-C Copies to: Berta Hernandez APRN, LAURA Ordering Provider: Berta Hernandez APRN, CNP Date of Service: 12/12/22 CT/CT head/brain wo con: [employer]AR[employer] CT head/brain wo con 12/12/2022 1:06 PM SIGNS AND SYMPTOMS: Multiple syncopal episodes with unsteady gait [employer] TECHNIQUE:Multi-detector CT axial slices of the brain were [...] Debby Ray M.D.12/12/2022 3:54 PM Dictation Location: [place] [address] Transcribed By: [facility] 12/12/22 1556 Dictated By: Debby Ray II, MD 12/12/22 1551 Signed By: 12/12/22 1554[facility]edoCULTURE URINEon 10-21-2022 CULTURE URINEIsolate 1 Escherichia coli >100,000 cfu/mL of Isolate 2 Pseudomonas aeruginosa 50,000 cfu/mL of ORGANISM 1 Escherichia coli ANTIBIOTIC M.I.C RX STATUS Ampicillin >=32 R F Ampicillin/Sulbactam >=32 R F Piperacillin/Tazobactam 64 I F Cefazolin 8 S F Ceftazidime <=1 S F Ceftriaxone <=1 S F Ertapenem <=0.5 S F Imipenem <=0.25 S F Amikacin <=2 S F Gentamicin <=1 S F Tobramycin <=1 S F Ciprofloxacin <=0.25 S F Levofloxacin <=0.12 S F Nitrofurantoin <=16 S F Trimethoprim/Sulfamethoxazole <=20 S F ORGANISM 2 Pseudomonas aeruginosa ANTIBIOTIC M.I.C RX STATUS Piperacillin/Tazobactam <=4 S F Ceftazidime <=1 S F Imipenem <=0.25 S F Amikacin <=2 S F Gentamicin <=1 S F Tobramycin <=1 S F Ciprofloxacin <=0.25 S F Levofloxacin 0.25 S FNormalThe Parkview HealthComment on above:Performed By: #### URCX ####[facility] [address] [place] [address]Dr. Olga Gordon AUTO DIFFon [id number] #0.0 103/ulNormal0.0-0.1The Parkview HealthComment on above:Performed By: #### ANILA HSTRGEMMA, TSH #### [facility] [address] [place] [address] Dr. Olga SoBasophils/100 WBC (Bld)0.6 %Normal0.2-2.0The [facility] Comment on above:Performed By: #### ANILA HSTRGEMMA, TSH #### [facility] [address] [place] [address] Dr. Olga Saleh #0.2 103/ulNormal0.0-0.7The [facility] HealthComment on above: Performed By: #### ANILA HSTROPN, TSH #### [facility] [address] [place] [address] Dr. Olga Potterosinophils/100 WBC (Bld)3.7 %Normal0.9-7.0The [facility] Comment on above:Performed By: #### ANILA HSTROPN, TSH #### [facility] [address] [place] [address] Dr. Olga Potterrythrocyte distribution width (RBC) [Ratio]13.0 %Zfjdvo26.0-15.0 The [facility] HealthComment on above:Performed By: #### ANILA HSTROPN, TSH #### [facility] [address] [place] [address] Dr. Olga SoHematocrit (Bld) [Volume fraction]28.8 %Critically low42.0-54.0 The Parkview HealthComment on above:Performed By: #### CMP, HSTROPN, TSH #### [facility] [address] [place] [address] Dr. Olga SoHemoglobin (Bld) [Mass/Vol]9.3 g/dLCritically low14.0-18.0The [facility] Hospitalment on above:Performed By: #### CMP, HSTROPN, TSH #### [facility] [address] [place] [address] Dr. Olga Duran #0.02 10e3/ulNormal0.00-0.03The [facility] Hospitalment on above:Performed By: #### CMP, HSTROPN, TSH #### [facility] [address] [place] [address] Dr. Olga Duran %0.3 %Normal0.0-0.5The [facility] HealthComment on above: Performed By: #### CMP, HSTROPN, TSH #### [facility] [address] [place] [address] Dr. Olga Kiser #2.2 103/ulNormal1.2-3.8The [facility] on above:Performed By: #### CMP, HSTROPN, TSH #### [facility] [address] [place] [address] Dr. Olga Paizhocytes/100 WBC (Bld)33.8 %Klnulw02.5-60.0The [facility] on above:Performed By: #### CMP, HSTROPN, TSH #### [facility] [address] [place] [address] Dr. Olga BarbourUAL DIFF REQNONormalThe Park[facility] HealthComment on above: Performed By: #### CMP, HSTROPN, TSH #### [facility] [address] [place] [address] Dr. Olga Parsons (RBC) [Entitic mass]30.4 suRtrbvl47.9-34.0The [facility] HospitalComment on above:Performed By: #### CMP, HSTROPN, TSH #### [facility] [address] [place] [address] [address] Olga Ascencio (RBC) [Mass/Vol]32.3 g/eHDrzyti23.9-35.2The [facility] HealthComment on above:Performed By: #### CMP, HSTROPN, TSH #### [facility] [address] [place] [address] [address] Olga Ascencio (RBC) [Entitic vol]94.1 fLCritically high80.0-94.0The [facility] HealthComment on above:Performed By: #### CMP, HSTROPN, TSH #### [facility] [address] [place] [address] Dr. Olga Amato #0.5 103/ulNormal0.3-0.8The [facility] HealthComment on above:Performed By: #### CMP, HSTROPN, TSH #### [facility] [address] [place] [address] Dr. Olga Ruizocytes/100 WBC (Bld)7.1 %Normal1.7-12.0The [facility] Comment on above:Performed By: #### CMP, HSTROPN, TSH #### [facility] [address] [place] [address] Dr. Olga Richard #3.5 103/ulNormal1.4-6.5The [facility] HealthComment on above:Performed By: #### CMP, HSTROPN, TSH #### [facility] [address] [place] [address] Dr. Olga Russellutrophils/100 WBC (Bld)54.5 %Cdaswa45.0-75.0The [facility] HealthComment on above:Performed By: #### CMP, HSTROPN, TSH #### [facility] [address] [place] [address] Dr. Olga Perez mean volume (Bld) [Entitic vol]9.3 fLCritically low 9.5-13.5The [facility] HospitalComment on above:Performed By: #### CMP, HSTROPN, TSH #### [facility] [address] [place] [address] [address] Olga SoPLT276 103/acZuescd511-000Rey [facility] HealthComh[facility] on above: Performed By: #### CMP, HSTROPN, TSH #### [facility] [address] [place] [address] Dr. Olga SoRBC3.06 106/ulCritically low4.70-6.10The [facility]Comhutzel [facility] on above:Performed By: #### CMP, HSTROPN, TSH #### [facility] [address] [place] [address] Dr. Olga SoWBC6.5 103/ulNormal4.0-11.0The [facility] on above: Performed By: #### CMP, HSTROPN, TSH #### [facility] [address] [place] [address] Dr. Olga SoPOINT OF CARE GLUCOSEon 10-30-9060Hobqkim [Mass/Vol]143 mg/dL Critically rypt57-882[facility]Lutheran Hospital on above:Performed By: #### POCGLUC #### [facility] [address] [place] [address] Dr. Olga SoGlucose [Mass/Vol]156 mg/dLCritically lson03-254[facility]izLutheran Hospital on above:Performed By: #### POCGLUC #### [facility] [address] [place] [address] Dr. Olga SoPROF 14(COMP METB)on 10-82-7283Rgadxow [Mass/Vol]2.9 g/dL Critically low3.4-5.0The [facility] on above:Performed By: #### POCGLUC #### [facility] [address] [place] [address] Dr. Olga SoAlbumin/Globulin [Mass ratio]0.6 {ratio}NormalThe [facility] on above:Performed By: #### POCGLUC #### [facility] [address] [place] [address] [address] Olga CamejoP [Catalytic activity/Vol]155 U/LCritically slyo21-116Tvm [facility] HealthComment on above:Performed By: #### POCGLUC #### [facility] [address] [place] [address] [address] Olga CamejoT [Catalytic activity/Vol]23 U/EJoxyfv11-70Eef [facility] HealthComment on above:Performed By: #### POCGLUC #### [facility] [address] [place] [address] [address] Olga Judd gap [Moles/Vol]12.4 mmol/LNormalThe [facility] Comment on above:Performed By: #### POCGLUC #### [facility] [address] [place] [address] [address] Olga SoAST [Catalytic activity/Vol]19 U/LRmyykf45-29Njf [facility] HealthComment on above:Performed By: #### POCGLUC #### [facility] [address] [place] [address] [address] Olga SoCalcium [Mass/Vol]8.5 mg/dLNormal8.5-10.1The [facility] Comment on above:Performed By: #### POCGLUC #### [facility] [address] [place] [address] Dr. Olga SoChloride [Moles/Vol]104 mmol/PYawgik24-472Vdc [facility] Comment on above:Performed By: #### POCGLUC #### [facility] [address] [place] [address] [address] Olga SoCO2 [Moles/Vol]27.3 mmol/XFhxozm42.0-32.0The [facility] Comment on above:Performed By: #### POCGLUC #### [facility] [address] [place] [address] [address] Olga SoCreatinine [Mass/Vol]1.13 mg/dLNormal0.70-1.30The [facility]view HealthComment on above:Performed By: #### POCGLUC #### [facility] [address] [place] [address] [address] Olga PotterGFR-AF NAURUAN>60Normal>=60The Parkview HealthComment on above:Performed By: #### POCGLUC #### [facility] [address] [place] [address] Dr. Olga PotterGFR-NON AF NAURUAN>60Normal>=60The Parkview HealthComment on above:Performed By: #### POCGLUC #### [facility] [address] [place] [address] Dr. Olga SoGlobulin (S) [Mass/Vol]4.7 g/dLNormalThe Parkview HealthComment on above:Performed By: #### POCGLUC #### [facility] [address] [place] [address] Dr. Olga SoGlucose [Mass/Vol]147 mg/dLCritically erin86-167Pdt Parkview HealthComment on above:Performed By: #### POCGLUC #### [facility] [address] [place] [address] Dr. Olga SoPotassium [Moles/Vol]4.7 mmol/LNormal3.5-5.1The [facility] Comment on above:Performed By: #### POCGLUC #### [facility] [address] [place] [address] Dr. Olga SoProtein [Mass/Vol]7.6 g/dLNormal6.4-8.2[facility] Comment on above:Performed By: #### POCGLUC #### [facility] [address] [place] [address] Dr. Olga SoSodium [Moles/Vol]139 mmol/VDmzfxk399-422IjmBarney Children'S Medical Center Comment on above:Performed By: #### POCGLUC #### [facility] [address] [place] [address] Dr. Olga SoTBIL<0.1Critically low0.2-1.0The Parkview HealthComment on above:Performed By: #### POCGLUC #### [facility] [address] [place] [address] Dr. Yilan ChangUrea nitrogen [Mass/Vol]16.0 mg/dLNormal7.0-18.0[facility]S Medical CenterComment on above:Performed By: #### POCGLUC #### [facility] [address] [place], [place] [address] Dr. Olga SoUrea nitrogen/Creatinine [Mass ratio]14.2 mg/mgNormalThe Parkview HealthComment on above:Performed By: #### POCGLUC #### [facility] [address] [address] [address] Espinoza ChangECHOCARDIO M/2D COMPLETEon [id number] M/2D COMPLETE Patient: DEONDRE LR Exam Date: 10/18/2022 : 1955 Gender:M Ordering : SHAIKH Uyen VARGAS . Admission #: [id number] Family : DR MIKE YUAN M.D. Order #: [id number] CLICK HERE TO VIEW EXAM ECHOCARDIOGRAM REPORT [...] Left Atrium LA Volume Index (2D A2C): 26692 mm3 Left Atrium Systolic Dimension: 4.30 cm [...] by: Cydney Redmond M.D. on 10/19/2022 at 10:43[facility] GLUCOSEon [id number] [Mass/Vol]169 mg/dLCritically bupj03-179DizBarney Children'S Medical CenterComment on above:Performed By: #### POCGLUC #### [facility] [address] [place] [address] Dr. Olga SoGlucose [Mass/Vol]117 mg/dLCritically snrh51-624EtkBarney Children'S Medical CenterComhutzel women's hospital on above:Performed By: #### POCGLUC #### [facility] [address] [place] [address] Dr. Olga SoGlucose [Mass/Vol]162 mg/dLCritically ieqx58-794Aol Parkview HealthComment on above:Performed By: #### CMP, HSTROPN, TSH #### [facility] [address] [address] [address] Olga SoGlucose [Mass/Vol]109 mg/dLCritically sxip24-955Ktr Parkview HealthComment on above:Performed By: #### POCGLUC #### [facility] [address] [address] [address] Olga SoGlucose [Mass/Vol]187 mg/dLCritically rhep37-482HbhBarney Children'S Medical CenterComment on above:Performed By: #### POCGLUC #### [facility] [address] [address] [address] Olga Pineda CAROTID ART BILon [id number] CAROTID ART BILEXAMINATION: US CAROTID ART NOHELIA HISTORY: Dizziness COMPARISON: [...] Electronically authenticated by: RAMONA WAGGONER Date: 2022-10-18 16:24[facility] CampusXR LSPINE 2_3 VIEWSon [id number] LSPINE 2_3 VIEWSEXAMINATION: XR LSPINE 2_3 VIEWS HISTORY: Sacroiliac joint inflamed COMPARISON: No relevant comparison available. FINDINGS: BONES: Posterior decompression and bilateral transpedicular fusion L3-S1. No acute fracture, spondylolisthesis or mechanical failure. Mild degenerative spondylosis. Moderate facet osteoarthropathy DISC SPACES: Interbody spacers L4-5 and L5-S1 PARASPINOUS: Negative. No paraspinous abnormality is seen. OTHER: Negative. IMPRESSION: Stable lumbosacral fusion Electronically authenticated by: RAMONA WAGGONER Date: 2022-10-18 14:35NormalThe [facility] HealthXR SHOULDER NOHELIA 2V or >on [id number] SHOULDER NOHELIA 2V or > EXAMINATION: XR [...] Electronically authenticated by: RAMONA WAGGONER Date: 2022-10-18 12:15[facility] DIFFon 07-04-1712SZGI #0.1 103/ulNormal0.0-0.1[facility]S Medical CenterComment on above:Performed By: #### POCGLUC #### [facility] [address] [place] [address] Dr. Olga SoBasophils/100 WBC (Bld)0.5 %Normal0.2-2.0[facility] Comment on above:Performed By: #### POCGLUC #### [facility] [address] [place] [address] Dr. Olga Saleh #0.3 103/ulNormal0.0-0.7ThSelect Medical [facility] Clinic Rehabilitation Hospital, Edwin ShawComment on above: Performed By: #### POCGLUC #### [facility] [address] [place] [address] Dr. Olga Potterosinophils/100 WBC (Bld)3.0 %Normal0.9-7.0[facility] Comment on above:Performed By: #### POCGLUC #### [facility] [address] [address] [address] Olga Potterrythrocyte distribution width (RBC) [Ratio]13.3 %Iikeai67.0-15.0 [facility] Hospitalment on above:Performed By: #### POCGLUC #### [facility] [address] [place] [address] Dr. Olga SoHematocrit (Bld) [Volume fraction]32.6 %Critically low42.0-54.0 The Parkview HealthComment on above:Performed By: #### POCGLUC #### [facility] [address] [place] [address] Dr. Olga SoHemoglobin (Bld) [Mass/Vol]10.1 g/dLCritically low14.0-18.0[facility] Hospitalment on above:Performed By: #### POCGLUC #### [facility] [address] [place] [address] Dr. Olga Duran #0.04 10e3/ulCritically high0.00-0.03The [facility] Comment on above:Performed By: #### POCGLUC #### [facility] [address] [place] [address] Dr. Olga Duran %0.4 %Normal0.0-0.5The [facility] Hospitalment on above: Performed By: #### POCGLUC #### [facility] [address] [place] [address] Dr. Olga PaizH #2.5 103/ulNormal1.2-3.8The [facility] Hospitalment on above:Performed By: #### POCGLUC #### [facility] [address] [place] [address] Dr. Olga Paizhocytes/100 WBC (Bld)24.3 %Fnfexr06.5-60.0[facility] Hospitalment on above:Performed By: #### POCGLUC #### [facility] [address] [place] [address] Dr. Olga BarbourUAL DIFF REQNONormalThe Parkview HealthComment on above: Performed By: #### POCGLUC #### [facility] [address] [place] [address] Dr. Olga Ascencio (RBC) [Entitic mass]30.2 zlKzjbmt54.9-34.0The Parkview HealthComment on above:Performed By: #### POCGLUC #### [facility] [address] [place] [address] Dr. Olga Ascencio (RBC) [Mass/Vol]31.0 g/gRStmaod79.9-35.2The Parkview HealthComment on above:Performed By: #### POCGLUC #### [facility] [address] [place] [address] Dr. Olga Ascencio (RBC) [Entitic vol]97.6 fLCritically high80.0-94.0The Parkview HealthComment on above:Performed By: #### POCGLUC #### [facility] [address] [place] [address] Dr. Olga Amato #0.8 103/ulNormal0.3-0.8The Parkview HealthComment on above:Performed By: #### POCGLUC #### [facility] [address] [place] [address] Dr. Olga Ruizocytes/100 WBC (Bld)7.3 %Normal1.7-12.0[facility] Comment on above:Performed By: #### POCGLUC #### [facility] [address] [place] [address] Dr. Olga Richard #6.7 103/ulCritically high1.4-6.5The [facility] Comment on above:Performed By: #### POCGLUC #### [facility] [address] [place] [address] Dr. Olga Russellutrophils/100 WBC (Bld)64.5 %Nmjtgh77.0-75.0The Parkview HealthComment on above:Performed By: #### POCGLUC #### [facility] [address] [place] [address] Dr. Olga Faithlet mean volume (Bld) [Entitic vol]9.7 fLNormal9.5-13.5The [facility] HospitalComment on above:Performed By: #### POCGLUC #### [facility] [address] [address] [address] Olga SoPLT402 103/isLbrpnc188-503Xwo Park[facility] HealthComment on above: Performed By: #### POCGLUC #### [facility] [address] [address] [address] Olga SoRBC3.34 106/ulCritically low4.70-6.10The Parkview HealthComment on above:Performed By: #### POCGLUC #### [facility] [address] [address] [address] Olga SoWBC10.4 103/ulNormal4.0-11.0The Parkview HealthComment on above:Performed By: #### POCGLUC #### [facility] [address] [place] [address] Dr. Olga SoCT HEAD WO CONon [id number] HEAD WO CONEXAMINATION: CT HEAD WO CON, 10/17/2022 6:32 PM [...] Electronically authenticated by: PANDA GURROLA Date: 2022-10-17 19:22NormalThe Parkview HealthCULTURE BLOODon 01-24-3994Ibxtkhodymb examination of blood, cultureCulture Observations: NO GROWTH AT 5 DAYS.NormalThe Parkview HealthComment on above:Performed By: #### BLDCX2 ####[facility] [address] [address]Dr. Olga SoMicroscopic examination of blood, cultureCulture Observations: NO GROWTH AT 5 DAYS.NormalBarney Children'S Medical CenterComment on above:Performed By: #### BLDCX1 ####[facility] [address] [address]Dr. Olga Herrera URINE PROFILEon 77-28-4653Zhzjdsgdm Ql (U)NegativeNormal NEGATIVEBarney Children'S Medical CenterComment on above:Performed By: #### YELENA ERUR #### [facility] [address] [address] [address] Olga SoClarity (U)CLEARNormalCLEARBarney Children'S Medical CenterComment on above: Performed By: #### NIRU KIRKR #### [facility] [address] [address] [address] Olga Pak (U)LT. YELLOWNormalYELLOWBarney Children'S Medical CenterComment on above:Performed By: #### NIRU KIRKR #### [facility] [address] [address] [address] Olga Chavira micrscopic examination will be performed if indicated. NormalBarney Children'S Medical CenterComment on above:Performed By: #### NIRU KIRKR #### [facility] [address] [address] [address] Olga SoGlucose Ql (U)NegativeNormalNEGATIVEBarney Children'S Medical CenterComment on above:Performed By: #### NIRU KIRKR #### [facility] [address] [address] [address] Olga SoHemoglobin Ql (U)NegativeNormalNEGATIVEBarney Children'S Medical Center Comment on above:Performed By: #### YELENA ERUR #### [facility] [address] [address] [address] Olga SoKetones Ql (U)NegativeNormalNEGATIVEBarney Children'S Medical CenterComment on above:Performed By: #### YELENA ERUR #### [facility] [address] [address] [address] Olga SoLEUKOCYTESSMALLAbnormalNEGATIVEBarney Children'S Medical CenterComment on above:Performed By: #### YELENA, ERUR #### [facility] [address] [address] [address] Olga Burdick Ql (U)PositiveAbnormalNEGATIVEBarney Children'S Medical Center Comment on above:Performed By: #### YELENA, ERUR #### [facility] [address] [address] [address] Olga SopH (U)5.5 [pH]Normal5-9The Parkview HealthComment on above: Performed By: #### YELENA ERUR #### [facility] [address] [address] [address] Olga SoSPEC GRAVITY1.053Jeqtsv9.005-<=1.025The Parkview HealthComment on above:Performed By: #### YELENA ERUR #### [facility] [address] [address] [address] Olga Pool PROTEINNegativeNormalNEGATIVE/ TRACEBarney Children'S Medical Center Comment on above:Performed By: #### YELENA ERUR #### [facility] [address] [address] [address] Olga DUNN INDINDICATEDNormalThSelect Medical [facility] Clinic Rehabilitation Hospital, Edwin ShawComment on above: Performed By: #### YELENA ERUR #### [facility] [address] [address] [address] Olga Christiansoninogen Qn (U)0.2 {Judson'U}/dLNormal0.2 - 1.0[facility]'S Medical CenterComment on above:Performed By: #### YELENA, ERUR #### [facility] [address] [address] [address] Olga SoLACTATE/LACTIC ACIDon 38-75-6618Xagikhh [Moles/Vol]0.8 mmol/L Normal0.4-2.0The Parkview HealthComment on above:Performed By: #### LACT ####[facility] [address] [address]Dr. Olga HicksF 14(COMP METB)on 33-33-4827Xjzicab [Mass/Vol]3.7 g/dLNormal 3.4-5.0The [facility]view HealthComment on above:Performed By: #### CMP, HSTROPN, TSH #### [facility] [address] [address] [address] Olga SoAlbumin/Globulin [Mass ratio]0.7 {ratio}NormalThe Parkview HealthComment on above:Performed By: #### CMP, HSTROPN, TSH #### [facility] [address] [place] [address] Dr. Olga Whitten [Catalytic activity/Vol]160 U/LCritically hdmw14-957Oan [facility] HealthComment on above:Performed By: #### CMP, HSTROPN, TSH #### [facility] [address] [place] [address] Dr. Olga Welch [Catalytic activity/Vol]18 U/SVlaiur99-45Lyj [facility] HealthComment on above:Performed By: #### CMP, HSTROPN, TSH #### [facility] [address] [address] [address] Olga Judd gap [Moles/Vol]13.2 mmol/LNormalThe [facility] Comment on above:Performed By: #### CMP, HSTROPN, TSH #### [facility] [address] [place] [address] Dr. Olga SoAST [Catalytic activity/Vol]17 U/NCzrbey91-03Uzz [facility] Hospitalment on above:Performed By: #### CMP, HSTROPN, TSH #### [facility] [address] [address] [address] Olga SoBilirubin [Mass/Vol]0.2 mg/dLNormal0.2-1.0The [facility] Comment on above:Performed By: #### CMP, HSTROPN, TSH #### [facility] [address] [place] [address] Dr. Yilan ChangCalcium [Mass/Vol]8.2 mg/dLCritically low8.5-10.1The [facility] HealthComment on above:Performed By: #### CMP, HSTROPN, TSH #### [facility] [address] [address] [address] Olga SoChloride [Moles/Vol]106 mmol/HAqucdq58-679Tfb [facility] Comment on above:Performed By: #### CMP, HSTROPN, TSH #### [facility] [address] [address] [address] Olga SoCO2 [Moles/Vol]26.3 mmol/UGurdfc41.0-32.0The [facility] Comment on above:Performed By: #### CMP, HSTROPN, TSH #### [facility] [address] [place] [address] Dr. Olga SoCreatinine [Mass/Vol]2.30 mg/dLCritically high0.70-1.30The [facility] HealthComment on above:Performed By: #### CMP, HSTROPN, TSH #### [facility] [address] [address] [address] Olga PotterGFR-AF YASMZQHZ78 mL/min/1.88v3Yztypwjgxv low>=60The [facility] HealthComment on above:Performed By: #### CMP, HSTROPN, TSH #### [facility] [address] [address] [address] Olga PotterGFR-NON AF EXOAQNGB13 mL/min/1.86g8Znipmarktx low>=60The [facility] HealthComment on above:Performed By: #### CMP, HSTROPN, TSH #### [facility] [address] [address] [address] Olga SoGlobulin (S) [Mass/Vol]5.2 g/dLNormalThe [facility] HealthComment on above:Performed By: #### CMP, HSTROPN, TSH #### [facility] [address] [address] [address] Olga SoGlucose [Mass/Vol]124 mg/dLCritically ekgs80-698Pqa [facility] HealthComment on above:Performed By: #### CMP, HSTROPN, TSH #### [facility] [address] [address] [address] Olga SoPotassium [Moles/Vol]4.5 mmol/LNormal3.5-5.1The [facility] Comment on above:Performed By: #### CMP, HSTROPN, TSH #### [facility] [address] [address] [address] Olga SoProtein [Mass/Vol]8.9 g/dLCritically high6.4-8.2The [facility] HealthComment on above:Performed By: #### CMP, HSTROPN, TSH #### [facility] [address] [address] [address] Olga SoSodium [Moles/Vol]141 mmol/QJyloxi312-247Gpf [facility] Comment on above:Performed By: #### CMP, HSTROPN, TSH #### [facility] [address] [place] [address] Dr. Olga SoUrea nitrogen [Mass/Vol]52.0 mg/dLCritically high7.0-18.0The [facility] HealthComhutzel women's hospital on above:Performed By: #### CMP, HSTROPN, TSH #### [facility] [address] [place] [address] Dr. Olga Frances nitrogen/Creatinine [Mass ratio]22.6 mg/mgNoProMedica Toledo HospitalComment on above:Performed By: #### CMP, HSTROPN, TSH #### [facility] [address] [place] [address] Dr. Olga SoPROTIMEon 31-98-5731NUX Coag (PPP) [Relative time]0.95 {INR} NormalLutheran Hospital on above:Performed By: #### PTT, PT ####[facility] [address] [address]Dr. Olga Lee GUIDELINESSEE BELOWFirelands Regional Medical Center South CampusComhutzel women's hospital on above: Result Comment: DESIRED INR: 2.0 - 3.0 CONDITIONS NOT LISTED BELOW 2.5 - 3.5 FOR PROSTHETIC HEART VALVE REPLACEMENT 2.5 - 3.5 RECURRENT THROMBOSISPerformed By: #### PTT, PT ####[facility] [address] [address]Dr. Olga SoPT Coag (PPP) [Time]10.1 sNormal9.0-11.6The [facility]view HealthComment on above:Performed By: #### PTT, PT ####[facility] [address] [address]Dr. Olga ArceTon 14-33-7383jLAN Coag (Bld) [Time]29.3 aSnmvlf12.3-36.2The [facility] Comment on above:Performed By: #### PTT, PT #### [facility] [address] [place] [address] Dr. Olga Contreras, HIGH SENSITIVITYon 16-89-1189WVDLET7.5 pg/mLNormal 4.0-76.1The [facility]view HealthComment on above:Result Comment: CUT-OFF POINTS HAVE BEEN ESTABLISHED BASED ON THE FOURTH UNIVERSAL DEFINITIONS OF MYOCARDIAL INFARCTION. THE UPPER REFERENCE LIMIT (URL) OF TROPONIN, DEFINED THE 99TH PERCENTILE OF cTnI DISTRIBUTION IN A REFERENCE POPULATION, HAS BEEN CONFIRMED THE DECISION THRESHOLD FOR [place] DIAGNOSIS.Performed By: #### CMP, HSTROPN, TSH #### [facility] [address] [place] [address] Dr. Olga Johnston 44-55-6284ALV5.980 uIU/mLNormal0.358-3.740The [facility] HealthComment on above:Performed By: #### CMP, HSTROPN, TSH #### [facility] [address] [address] [address] Olga CARDENASon 29-74-2612ZZTYGOKUTEXINOgmwwhwmOGXR SEEN The Parkview HealthComment on above:Performed By: #### UMICRO, ERUR #### [facility] [address] [address] [address] Olga Glaser identified Cx Nom (U)INDICATEDNormalThe Parkview HealthComment on above:Performed By: #### KARLENERO, ERUR #### [facility] [address] [place] [address] Dr. Olga Evans SEENNormalNONE SEENBarney Children'S Medical CenterComhutzel women's hospital on above:Performed By: #### KARLENERO, ERUR #### [facility] [address] [place] [address] Dr. Olga Castañeda LM Nom (Urine sed)NONE SEENNormalNONE SEENBarney Children'S Medical CenterComhutzel women's hospital on above:Performed By: #### KARLENERO, ERUR #### [facility] [address] [place] [address] Dr. Olga Naiduthelial cells LM Ql (Urine sed)FEWAbnormalNONE SEEN /RAREThe [facility] HealthComhutzel women's hospital on above:Performed By: #### YELENA, ERUR #### [facility] [address] [place] [address] Dr. Olga Lackey SEENNormalNONE SEENBarney Children'S Medical CenterComhutzel women's hospital on above:Performed By: #### YELENA, ERUR #### [facility] [address] [place] [address] Dr. Olga SoDsspoXUJ0-9Rrodcrpc5-1Eqk [facility] on above:Performed By: #### YELENA, ERUR #### [facility] [address] [place] [address] Dr. Olga SoLngorQUE94-88ElpskjfiMIXM SEENBarney Children'S Medical CenterComhutzel women's hospital on above: Performed By: #### YELENA, ERUR #### [facility] [address] [place] [address] Dr. Olga SoXR CHEST 1 Von [id number] CHEST 1 VEXAM: XR CHEST 1 V HISTORY: Dizziness COMPARISON: 05/01/2020 TECHNIQUE: Frontal view of the chest. FINDINGS: Low lung volumes. Elevation of the right hemidiaphragm which appears unchanged. No focal consolidations or pleural effusions. Bilateral shoulder arthroplasties. IMPRESSION: No acute disease. Low lung volumes. Electronically authenticated by: PANDA GURROLA Date: 2022-10-17 19:24[facility] CampusXR HIPS NOHELIA 3_4V WO PELVISon [id number] HIPS NOHELIA 3_4V WO PELVISEXAMINATION: XR HIPS NOHELIA 3_4V WO PELVIS HISTORY: [...] Electronically authenticated by: REILLY MARIA Date: 2022-09-24 16:17[facility] CampusNM STRESS/REST MULTIon [id number] STRESS/REST MULTIPatient: DEONDRE LR Exam Date: 07/05/2022 : 1955 Gender:M Ordering : DR CYDNEY REDMOND M.D. Admission #: [id number] Family : DR MIKE YUAN M.D. Order #: [id number] CLICK HERE TO VIEW EXAM RADIOLOGY REPORT [...] by: Reilly Maria M.D. on 07/05/2022 at 15:05[facility] AUTO DIFFon [id number] #0.1 103/ulNormal0.0-0.1The [facility]view HealthComment on above:Performed By: #### ANILA HSTRGEMMA, TSH #### [facility] [address] [place] [address] Dr. Olga SoBasophils/100 WBC (Bld)0.6 %Normal0.2-2.0[facility] Comment on above:Performed By: #### ANILA HSTROPDago, TSH #### [facility] [address] [place] [address] Dr. Olga Saleh #0.1 103/ulNormal0.0-0.7The [facility] HealthComment on above: Performed By: #### ANILA HSTROPDago, TSH #### [facility] [address] [place] [address] Dr. Olga Potterosinophils/100 WBC (Bld)1.6 %Normal0.9-7.0The [facility] Comment on above:Performed By: #### ANILA HSTROPN, TSH #### [facility] [address] [place] [address] Dr. Olga Potterrythrocyte distribution width (RBC) [Ratio]12.3 %Ppoqmn99.0-15.0 The [facility]view HealthComment on above:Performed By: #### ANILA HSTROPN, TSH #### [facility] [address] [place] [address] Dr. Olga SoHematocrit (Bld) [Volume fraction]33.2 %Critically low42.0-54.0 The [facility]view HealthComment on above:Performed By: #### CMP, HSTROPN, TSH #### [facility] [address] [place] [address] Dr. Olga SoHemoglobin (Bld) [Mass/Vol]11.9 g/dLCritically low14.0-18.0The [facility] Hospitalment on above:Performed By: #### CMP, HSTROPN, TSH #### [facility] [address] [place] [address] Dr. Olga Duran #0.03 10e3/ulNormal0.00-0.03The [facility] on above:Performed By: #### CMP, HSTROPN, TSH #### [facility] [address] [place] [address] Dr. Olga Duran %0.4 %Normal0.0-0.5The [facility] on above: Performed By: #### CMP, HSTROPN, TSH #### [facility] [address] [place] [address] Dr. Olga Kiser #2.1 103/ulNormal1.2-3.8The [facility] on above:Performed By: #### CMP, HSTROPN, TSH #### [facility] [address] [place] [address] Dr. Olga Paizhocytes/100 WBC (Bld)26.4 %Kirtde53.5-60.0The [facility] on above:Performed By: #### CMP, HSTROPN, TSH #### [facility] [address] [place] [address] Dr. Olga BarbourUAL DIFF REQNONormalThe [facility] HealthComment on above: Performed By: #### CMP, HSTROPN, TSH #### [facility] [address] [place] [address] Dr. Olga Parsons (RBC) [Entitic mass]32.2 dtOmedvf80.9-34.0The [facility] HealthComment on above:Performed By: #### CMP, HSTROPN, TSH #### [facility] [address] [place] [address] Dr. Olga Ascencio (RBC) [Mass/Vol]35.8 g/dLCritically high29.9-35.2The [facility] HealthComment on above:Performed By: #### CMP, HSTROPN, TSH #### [facility] [address] [place] [address] Dr. Olga Ascencio (RBC) [Entitic vol]90.0 bRVwxisz23.0-94.0The [facility] HealthComment on above:Performed By: #### CMP, HSTROPN, TSH #### [facility] [address] [place] [address] Dr. Olga Amato #0.7 103/ulNormal0.3-0.8The [facility] HealthComment on above:Performed By: #### CMP, HSTROPN, TSH #### [facility] [address] [place] [address] Dr. Olga Ruizocytes/100 WBC (Bld)8.0 %Normal1.7-12.0The [facility] Comment on above:Performed By: #### CMP, HSTROPN, TSH #### [facility] [address] [place] [address] Dr. Olga Richard #5.1 103/ulNormal1.4-6.5The [facility]view HealthComment on above:Performed By: #### CMP, HSTROPN, TSH #### [facility] [address] [place] [address] Dr. Olga Russellutrophils/100 WBC (Bld)63.0 %Fwjrkm18.0-75.0The [facility] HealthComment on above:Performed By: #### CMP, HSTROPN, TSH #### [facility] [address] [place] [address] Dr. Olga Perez mean volume (Bld) [Entitic vol]9.6 fLNormal9.5-13.5The [facility] HealthComment on above:Performed By: #### CMP, HSTROPN, TSH #### [facility] [address] [address] [address] Olga SoPLT229 103/fcQrsfbn702-853Lqr [facility] on above: Performed By: #### CMP, HSTROPN, TSH #### [facility] [address] [address] [address] Olga SoRBC3.69 106/ulCritically low4.70-6.10The [facility] HealthComment on above:Performed By: #### CMP, HSTROPN, TSH #### [facility] [address] [address] [address] Olga SoWBC8.1 103/ulNormal4.0-11.0The [facility] HealthComment on above: Performed By: #### CMP, HSTROPN, TSH #### [facility] [address] [place] [address] Dr. Olga SoGLYCOHEMOGLOBIN A1Con 15-64-1862QMO RECOMMENDATIONSEE BELOWNormal The [facility]Comh[facility] on above:Result Comment: ADA RECOMMENDED LIMIT 4.0 - 6.0 ADA THERAPEUTIC TARGET < 7.0 ACTION SUGGESTED > 7.0Performed By: #### A1C ####[facility] [address] [address]Dr. Olga SoGlucose [Mass/Vol]131 mg/dLNormalThOhioHealth Nelsonville [facility] Center on above:Performed By: #### A1C ####[facility] [address] [address]Dr.Olga SoHbA1c (Bld) [Mass fraction]6.2 %Normal 4.5-6.2The [facility] Hospitalment on above:Performed By: #### A1C ####[facility] [address] [address]DrMeenu SoMRSA NARES #1on [id number] NARES #1Culture Observations: No growth of MRSA at 48 hours.NormalThe [facility]view HealthComment on above: Performed By: #### MRSAN1 ####[facility] [address] [address]Dr. Olga SoPROF 14(COMP METB)on 02-88-1603Ettdqus [Mass/Vol]4.0 g/dLNormal3.4-5.0The [facility] HealthComment on above:Performed By: #### POCGLUC #### [facility] [address] [address] [address] Olga SoAlbumin/Globulin [Mass ratio]1.0 {ratio}NormalThe [facility]view HealthComment on above:Performed By: #### POCGLUC #### [facility] [address] [address] [address] Olga CamejoP [Catalytic activity/Vol]166 U/LCritically zubr63-781Qti [facility] HealthComment on above:Performed By: #### POCGLUC #### [facility] [address] [address] [address] Olga CamejoT [Catalytic activity/Vol]24 U/UZiqhys34-26Czs [facility] HealthComment on above:Performed By: #### POCGLUC #### [facility] [address] [address] [address] Olga Judd gap [Moles/Vol]13.2 mmol/LNormalThe [facility] Comment on above:Performed By: #### POCGLUC #### [facility] [address] [address] [address] Olga SoAST [Catalytic activity/Vol]17 U/HDxpvsu90-35Qwm [facility] HealthComment on above:Performed By: #### POCGLUC #### [facility] [address] [address] [address] Olga SoBilirubin [Mass/Vol]0.3 mg/dLNormal0.2-1.0The [facility] Comment on above:Performed By: #### POCGLUC #### [facility] [address] [address] [address] Olga SoCalcium [Mass/Vol]9.0 mg/dLNormal8.5-10.1The [facility] Comment on above:Performed By: #### POCGLUC #### [facility] [address] [address] [address] Olga SoChloride [Moles/Vol]102 mmol/BJhqtsw07-865Jlz [facility] Comment on above:Performed By: #### POCGLUC #### [facility] [address] [address] [address] Olga SoCO2 [Moles/Vol]29.0 mmol/ZOcrprk44.0-32.0The [facility] Comment on above:Performed By: #### POCGLUC #### [facility] [address] [address] [address] Olga SoCreatinine [Mass/Vol]1.39 mg/dLCritically high0.70-1.30The [facility] HealthComment on above:Performed By: #### POCGLUC #### [facility] [address] [address] [address] Espinoza ChangEGFR-AF NAURUAN>60Normal>=60The [facility] HealthComment on above:Performed By: #### POCGLUC #### [facility] [address] [address] [address] Olga PotterGFR-NON AF MXJNZTNO07 mL/min/1.25a6Yjumrhjdlq low>=60The [facility] HealthComment on above:Performed By: #### POCGLUC #### [facility] [address] [address] [address] Olga SoGlobulin (S) [Mass/Vol]4.0 g/dLNormalThe [facility] HealthComment on above:Performed By: #### POCGLUC #### [facility] [address] [address] [address] Olga SoGlucose [Mass/Vol]136 mg/dLCritically qplo43-794Uen [facility] HealthComment on above:Performed By: #### POCGLUC #### [facility] [address] [address] [address] Olga SoPotassium [Moles/Vol]4.2 mmol/LNormal3.5-5.1[facility] Comment on above:Performed By: #### POCGLUC #### [facility] [address] [address] [address] Olga SoProtein [Mass/Vol]8.0 g/dLNormal6.4-8.2[facility] Comment on above:Performed By: #### POCGLUC #### [facility] [address] [address] [address] Olga SoSodium [Moles/Vol]140 mmol/KSaomxo038-991Efj [facility] Comment on above:Performed By: #### POCGLUC #### [facility] [address] [address] [address] Olga SoUrea nitrogen [Mass/Vol]30.0 mg/dLCritically high7.0-18.0[facility]S Medical CenterComment on above:Performed By: #### POCGLUC #### [facility] [address] [address] [address] Olga SoUrea nitrogen/Creatinine [Mass ratio]21.6 mg/mgNormalThe [facility] HealthComment on above:Performed By: #### POCGLUC #### [facility] [address] [address] [address] Olga SoPOINT OF CARE GLUCOSEon 25-24-9007Hxsetwn [Mass/Vol]114 mg/dL Critically byep21-107UuaBarney Children'S Medical CenterComment on above:Performed By: #### POCGLUC #### [facility] [address] [place] [address] Dr. Olga SoCT SHOULDER LT WO CONon [id number] SHOULDER LT WO CON EXAMINATION: CT SHOULDER [...] Electronically authenticated by: REILLY MARIA Date: 2022-04-23 19:53NoProMedica Toledo HospitalMRI SHOULDER RT WO CONon [id number] SHOULDER RT WO CON EXAMINATION: MRI SHOULDER [...] Electronically authenticated by: REILLY MARIA Date: 2022-04-23 20:10[facility] CampusPOINT OF CARE GLUCOSEon 31-95-2852Dubtuty [Mass/Vol]129 mg/dL Critically iebx86-317CklBarney Children'S Medical CenterComment on above:Performed By: #### POCGLUC ####[facility] [address] [place], [place] [address]HcDr. Olga Mcconnellvid-19 PCR ([facility])on 80-42-3155HVCB-CoV-2 (COVID-19) RNA JULISSA+probe Ql (Unsp spec)Not detectedNormalNOT DETECTEDThe [facility] Comment on above:Result Comment: This test is not yet approved or cleared by the [place] FDA. When there are no FDA-approved or cleared tests available, and other criteria are met, FDA can make tests available under an emergency access mechanism called an Emergency Use Authorization (EUA). The EUA for this test is supported by the Computer Systems Engineer of Health and Human Service's (HHS's) declaration that circumstances exist to justify the emergency use of in vitro diagnostics for the detection and/or diagnosis of the virus that causes COVID- 19. This EUA will remain in effect (meaning [...] of clinical signs and symptoms consistent with SARS-CoV-2.Performed By: #### POCGLUC #### [facility] [address] [place], [place] [address] Dr. Olga SoXR RIBS LEFT INCLUDE CHEST (MIN 3 VIEWS)on 84-04-7845VT RIBS LEFT INCLUDE CHEST (MIN 3 VIEWS)EXAMINATION: XRAY VIEWS OF THE LEFT RIBS WITH [...] Bae Signed by: Bret Bae 12/06/21 Final resultNormalMercy Connecticut HospiceMinimally displaced fracture of the proximal left humerus MHPN RIS CONSOLIDATEDEXAMINATION: XRAY VIEWS OF THE LEFT RIBS WITH [...] airspace infiltrate. No pneumothorax or pleural effusion. [facility] Bret Hui - 12/06/2021 EXAMINATION: XRAY VIEWS OF THE [...] displaced fracture of the proximal left humerus [employer] Phone: bBookacoach Phone: radiology Study observation (narrative)[employer] Phone: XR SHOULDER LEFT (MIN 2 VIEWS)on [id number] SHOULDER LEFT (MIN 2 VIEWS)EXAMINATION: XRAY VIEWS OF THE LEFT SHOULDER 12/06/2021 [...] Bae Signed by: Bret Bae 12/06/21 Final resultNormalMercy Springdale HospitalMinimally displaced fracture of the proximal humerus at the level of the distal portion of the humeral prosthesis. [facility] CONSOLIDATEDEXAMINATION: XRAY VIEWS OF THE LEFT SHOULDER 12/06/2021 2:13 pm COMPARISON: None. HISTORY: ORDERING SYSTEM PROVIDED HISTORY: pain TECHNOLOGIST PROVIDED HISTORY: pain FINDINGS: The patient has undergone left shoulder arthroplasty. There is a minimally displaced fracture of the proximal humerus at the level of the distal portion of the humerus prosthesis. Bret Veliz P - 12/06/2021 EXAMINATION: XRAY VIEWS OF [...] the distal portion of the humeral prosthesis. [employer] Phone: radiology Study observation (narrative)[employer] Phone: XR SHOULDER LEFT (MIN 2 VIEWS)Ordered By: Bret Bae on 97-50-0391XOT [employer] Phone: POINT OF CARE GLUCOSEon 31-61-8882Rpfxrhp [Mass/Vol] 132 mg/dLCritically fzzi77-980YskBarney Children'S Medical CenterComment on above:Performed By: #### POCGLUC #### [facility] [address] [place] [address] Dr. Olga Atwood Metabolic Panelon 25-51-2380Mlqba gap [Moles/Vol]12 mmol/L9 - 17 mmol/LMercy HealthCalcium [Mass/Vol]8.0 mg/dLLow8.6 - 10.4 mg/dLMercy HealthChloride [Moles/Vol]107 mmol/L98 - 107 mmol/LMercy HealthCO2 [Moles/Vol]22 mmol/L20 - 31 mmol/LMercy HealthCreatinine [Mass/Vol]1.16 mg/dL0.70 - 1.20 mg/dLMercy HealthGFR >60>60 mL/minMercy HealthGFR Non->60>60 mL/minMercy HealthGlucose [Mass/Vol]171 mg/pRLzsz43 - 99 mg/dL [facility] SpringfieldInterpretation and review of laboratory resultsAbnormalKettering Health Springfield Potassium [Moles/Vol]4.0 mmol/L3.7 - 5.3 mmol/LMercy HealthSodium [Moles/Vol]141 mmol/L135 - 144 mmol/LMercy HealthUrea nitrogen (BldV) [Mass/Vol]14 mg/dL8 - 23 mg/dLKettering Health SpringfieldUrea nitrogen/Creatinine (Bld) [Mass ratio]12[facility] Manitowoc CountyBasic Metabolic Profon 09-06-2021(cont.)NormalGerman HospitalComment on above:Result Comment: Average GFR for 60-69 years old: 85 mL/min/1.73sq m Chronic Kidney Disease: <60 mL/min/1.73sq m Kidney failure: <15 mL/min/1.73sq m eGFR calculated using average adult body mass. Additional eGFR calculator available at: http://www.ShopWell/multiple_crcl_2011.htmPerformed By: #### KEN, HH #### [address] [place] [address] [employer] Interaction Designer: William Mcdonough gap [Moles/Vol]12 mmol/LNormal9-17German HospitalComment on above:Performed By: #### KEN, HH #### [facility] [address] [place] [address] [place] [address] Ux Interaction Designer: Ramona Hurd MDBUN/CRE Zfuli05Ivyzop8-91[facility] Comment on above:Performed By: #### KEN, HH #### [facility] [address] [place] [address] [place] [address] Ux Interaction Designer: MEGA Mcdonoughalcium [Mass/Vol]8.0 mg/dLLow8.6-10.4German HospitalComment on above:Performed By: #### BMP, HH #### [facility] [address] [place] [address] [place] [address] Ux Interaction Designer: MEGA Mcdonoughhloride [Moles/Vol]107 mmol/SBazmnp40-811Jazrq [facility]iffin HospitalComment on above:Performed By: #### KEN, HH #### [address] [place], [place] [address] [employer] Interaction Designer: Ramona Hurd MDCO2 [Moles/Vol]22 mmol/PLbewbc84-42Vjxae [facility]iffin HospitalComment on above:Performed By: #### BMP, HH #### [address] [place], [place] [address] [employer] Interaction Designer: MEGA Mcdonoughreatinine [Mass/Vol]1.16 mg/dLNormal0.70-1.20 [facility] HospitalComment on above:Performed By: #### KEN, HH #### [address] [place], [place] [id number] [employer] Interaction Designer: JUANA Mcdonough, Amer>60Normal>60[facility] Comment on above:Performed By: #### KEN, HH #### [address] [place], [place] [id number] [employer] Interaction Designer: JUANA Mcdonough,non Amer>60Normal>60Mer[facility] Springdale HospitalComment on above:Performed By: #### KEN, HH #### [address] [place], [place] [address] Ux Interaction Designer: Ramona Hurd MDGlucose [Mass/Vol]171 mg/iMMznk76-29Oevby [facility]dale HospitalComment on above:Performed By: #### BMP, HH #### [address] [place] [address] Ux Interaction Designer: Ramona Hurd MDPotassium [Moles/Vol]4.0 mmol/LNormal3.7-5.3Mer[facility] Springdale HospitalComment on above:Performed By: #### BMP, HH #### [facility] [address] [place] [address] Ux Interaction Designer: ISI Mcdonoughodium [Moles/Vol]141 mmol/UVrpmoj447-014TqdncGerman HospitalComment on above:Performed By: #### BMP, HH #### [facility] [address] [place] [address] [place] [address] Ux Interaction Designer: ISI Mcdonoughtaging:NormalGerman HospitalComment on above:Result Comment: Stage 1: Some kidney damage normal GFR Stage 2: Mild kidney damage GFR 60-89 Stage 3: Moderate kidney damage GFR 30-59 Stage 4: Severe kidney damage GFR 15-29 Stage 5: Severe kidney damage GFR <15 ESRD - chronic treatment by dialysis or transplantPerformed By: #### KEN, #### [address] [place] [address] Ux Interaction Designer: Ramona Hurd MDUrea nitrogen [Mass/Vol]14 mg/dLNormal8-23German HospitalComment on above:Performed By: #### KEN, #### [facility] [address] [place] [address] [place] [address] Ux Interaction Designer: Ramona Hurd MDGlucose, Whole Bloodon 11-68-5139Gmbtdti [Mass/Vol]172 mg/vTRwor01 - 100 mg/dLUc [facility] Hospital HealthInterpretation and review of laboratory resultsAbnormalAurora Medical Center Manitowoc CountyGlucose [Mass/Vol]156 mg/dL High74 - 100 mg/dLUc [facility] Hospital HealthInterpretation and review of laboratory results AbnormalAurora Medical Center Manitowoc CountyHemoglobin and Hematocriton 56-32-4299Ifbpqiyrgy (Bld) [Volume fraction]27.9 %Low40.7 - 50.3 %[facility] Hemoglobin.gastrointestinal spec 1 Ql (Stl)8.9 g/dLLow13.0 - 17.0 g/dLUc West Chester Hospital HealthInterpretation and review of laboratory resultsAbnormalAurora Medical Center Manitowoc CountyHgb/Hcton 97-53-8886Anblmzfajp (Bld) [Volume fraction]27.9 %Low40.7-50.3 German HospitalComment on above:Performed By: #### KEN, #### [facility] [address] [place] [address] Ux Interaction Designer: Ramona Hurd MDHemoglobin (Bld) [Mass/Vol]8.9 g/dLLow13.0-17.0 German HospitalComment on above:Performed By: #### KEN, #### [facility] [address] [place] [address] Ux Interaction Designer: Ramona Hurd MDLaboratory - Chemistry and Chemistry - challengeon 25-11-5849RIA/1.73 sq M.predicted MDRD (S/P/Bld) [Vol rate/Area][facility] Comment on above:Average GFR for 60-69 years old: 85 mL/min/1.73sq m Chronic Kidney Disease: <60 mL/min/1.73sq m Kidney failure: <15 mL/min/1.73sq m eGFR calculated using average adult body mass. Additional eGFR calculator available at: http://www.ShopWell/multiple_crcl_2012.htm Stage 1: Some kidney damage normal GFR Stage 2: Mild kidney damage GFR 60-89 Stage 3: Moderate kidney damage GFR 30-59 Stage 4: Severe kidney damage GFR 15-29 Stage 5: Severe kidney damage GFR <15 ESRD - chronic treatment by dialysis or transplant VL DUP LOWER EXTREMITY VENOUS RIGHTon 96-44-6065DjekgTad de la torre MD - 09/06/2021 [facility] Lower Extremities DVT Study Procedure Patient Name GERONIMO Koroma Date of Study 09/06/2021 Date of 1955 Gender Male Age 66 year(s) Race Room Number 0302 Corporate ID [id number] # Patient Acct [id number] # MR # [id number] Quality Systems Engineer Zunilda Morales, RVVeronica Interpreting Physician Tad Mack Referring Shmuel Wyatt, Referring Physician Nurse [employer] ARCHITECT Practitioner Additional Comments Results were faxed to the floor 09/06/2021 @ 8487. Procedure Type of Study: Veins: Lower Extremities [...] + !Prox Femoral !Phasic! ! ! + +------+------+ + !Popliteal !Phasic! ! ! + +------+------+ + [employer] Phone: radiology Study observation (narrative)[employer] Phone: VL DUP LOWER EXTREMITY VENOUS RIGHTOrdered By: Tad Mack on 66-95-4345QyaleDiligent Board Member Services Phone: Glucose, Whole Bloodon 30-75-4538Rnfmrvz [Mass/Vol]199 mg/iIUdgm73 - 100 mg/dLSamaritan North Health CenterLC [employer] HealthInterpretation and review of laboratory resultsAbnormRegency Hospital Cleveland West HealthGlucose [Mass/Vol]204 mg/gBQegs90 - 100 mg/dLMerLC [employer] HealthInterpretation and review of laboratory resultsAbnormRegency Hospital Cleveland West HealthGlucose [Mass/Vol]127 mg/nAQfpr64 - 100 mg/dLSamaritan North Health CenterLC [employer] Health Interpretation and review of laboratory resultsAbnormRegency Hospital Cleveland West Health XR SHOULDER LEFT 1 VWon 67-13-3093QX SHOULDER LEFT 1 VWEXAMINATION: ONE XRAY VIEW OF THE LEFT SHOULDER [...] Signed by: Luc Michele MD 09/05/21 Final resultNormalMerMt. Sinai Hospital1. Postoperative changes related to recent reverse left shoulder arthroplasty hardware placement. 2. Left basilar airspace disease and small left-sided pleural effusion. [facility] CONSOLIDATEDEXAMINATION: ONE XRAY VIEW OF THE LEFT SHOULDER [...] airspace disease and small left-sided pleural effusion. [facility] Luc Patterson MD - 09/05/2021 EXAMINATION: ONE XRAY VIEW [...] airspace disease and small left-sided pleural effusion. [facility] [employer] Phone: radiology Study observation (narrative)[facility] [employer] Phone: XR SHOULDER LEFT 1 VWOrdered By: Luc Michele on 03-06-5487Ejnai [employer] Phone: Glucose, Whole Bloodon 08-11-9923Tvejkyo [Mass/Vol]109 mg/eSPwiu19 - 100 mg/dLKettering Health SpringfieldInterpretation and review of laboratory resultsAbnormOakleaf Surgical HospitalHemoglobin A1Con 86-45-3804Wwqerbv [Mass/Vol]146 mg/dLNoMercy Health St. Joseph Warren HospitalComment on above:Result Comment: The ADA and AACC recommend providing the estimated average glucose result to permit better patient understanding of their HBA1c result.Performed By: #### GLYHGB #### [address] [id number] [employer] Interaction Designer: David Ge MD #### XOCHITL, CP #### [facility] [address] [place] [address] [place] [address] Ux Interaction Designer: Ramona Hurd MDHbA1c (Bld) [Mass fraction]6.7 %High4.0-6.0German HospitalComment on above:Performed By: #### GLYHGB #### [address] [place] [address] Ux Interaction Designer: David Ge MD #### XOCHITL, CP #### [facility] [address] [place] [address] [place] [address] Ux Interaction Designer: RUDY McdonoughRSA, DNA, Nasalon 15-70-5862VCNQ, DNA, Nasal NegativeNormalNEGGerman HospitalComment on above:Result Comment: NEGATIVE: MRSA DNA not detected by nucleic acid amplification. Results should be used as an adjunct to nosocomial control efforts to identify patients needing enhanced precautions. The test is not intended to identify patients with staphylococcal infections. Results should not be used to guide or monitor treatment for MRSA infections. Performed By: #### MRSANO #### [address] [address] Ux Interaction Designer: David Ge MD [address] [place] [address] Ux Interaction Designer: MEGA Mcdonough with Diffon 47-29-6544Mdx. Basophil0.05 k/uL Normal0.00-0.20German HospitalComment on above:Performed By: #### GLYHGB #### [address] [address] Ux Interaction Designer: David Ge MD #### CDP, CP #### [address] [place] [address] Ux Interaction Designer: Joe Mcdonough.Imm.Granulocyte0.03 k/uLNormal0.00-0.30German HospitalComment on above:Performed By: #### GLYHGB #### [address] [address] Ux Interaction Designer: David Ge MD #### CDP, CP #### [address] [place] [address] Ux Interaction Designer: Joe Mcdonough.Neutrophil (Seg)4.11 k/uLNormal1.50-8.10German HospitalComment on above:Performed By: #### GLYHGB #### [address] [address] Ux Interaction Designer: David Ge MD #### CDP, CP #### [address] [place] [address] Ux Interaction Designer: Ramona Hurd MDBasophils/100 WBC (Bld)1 %Normal0-2MMercy Hospital HospitalComment on above:Performed By: #### GLYHGB #### [address] [address] Ux Interaction Designer: David Ge MD #### CDP, CP #### [address] [place] [id number] Ux Interaction Designer: Ramona Hurd MDEosinophils (Bld) [#/Vol]0.36 10*3/uLNormal 0.00-0.44German HospitalComment on above:Performed By: #### GLYHGB #### [address] [address] Ux Interaction Designer: David Ge MD #### CDP, CP #### [address] [place] [id number] Ux Interaction Designer: Ramona Hurd MDEosinophils/100 WBC (Bld)5 %High1-4German HospitalComment on above:Performed By: #### GLYHGB #### [address] [address] Ux Interaction Designer: David Ge MD #### CDP, CP #### [address] [place] [id number] Ux Interaction Designer: Ramona Hurd MDErythrocyte distribution width (RBC) [Ratio]12.6 % Pekpxx71.8-14.4German HospitalComment on above:Performed By: #### GLYHGB #### [address] [address] Ux Interaction Designer: David Ge MD #### CDP, CP #### [address] [place] [id number] Ux Interaction Designer: Ramona Hurd MDHematocrit (Bld) [Volume fraction]37.7 %Low 40.7-50.3Mpremier health miami valley hospital northy [place] HospitalComment on above:Performed By: #### GLYHGB #### [address] [place] [address] Ux Interaction Designer: David Ge MD #### CDP, CP #### [address] [place], [place] [address] Ux Interaction Designer: Ramona Hurd MDHemoglobin (Bld) [Mass/Vol]12.3 g/dLLow13.0-17.0 German HospitalComment on above:Performed By: #### GLYHGB #### [address] [place] [address] Ux Interaction Designer: David Ge MD #### CDP, CP #### [address] [place], [place] [address] Ux Interaction Designer: Ramona Hurd MDImmature granulocytes/100 WBC (Bld)0 %Xnqnnj4YsisvGerman HospitalComment on above:Performed By: #### GLYHGB #### [address] [address] Ux Interaction Designer: David Ge MD #### CDP, CP #### [address] [place], [place] [id number] Ux Interaction Designer: Ramona Hurd MDLymphocytes (Bld) [#/Vol]2.33 10*3/uLNormal 1.10-3.70German HospitalComment on above:Performed By: #### GLYHGB #### [address] [place] [address] Ux Interaction Designer: David Ge MD #### CDP, CP #### [address] [place], [place] [id number] Ux Interaction Designer: Ramona Hurd MDLymphocytes/100 WBC (Bld)31 %Moeqaw83-86CbyoaGerman HospitalComment on above:Performed By: #### GLYHGB #### [address] [place] [address] Ux Interaction Designer: David Ge MD #### CDP, CP #### [address] [place], [place] [address] Ux Interaction Designer: RUDY McdonoughCH (RBC) [Entitic mass]32.5 coUoipiq05.2-33.5 German HospitalComment on above:Performed By: #### GLYHGB #### [address] [address] Ux Interaction Designer: David Ge MD #### CDP, CP #### [address] [place] [id number] Ux Interaction Designer: RUDY McdonoughCHC (RBC) [Mass/Vol]32.6 g/jWKxdozx66.4-34.8German HospitalComment on above:Performed By: #### GLYHGB #### [address] [address] Ux Interaction Designer: David Ge MD #### CDP, CP #### [address] [place] [id number] Ux Interaction Designer: RUDY McdonoughCV (RBC) [Entitic vol]99.5 rMQmpjov17.6-102.9 German HospitalComment on above:Performed By: #### GLYHGB #### [address] [address] Ux Interaction Designer: David Ge MD #### CDP, CP #### [address] [place] [id number] Ux Interaction Designer: RUDY Mcdonoughonocytes (Bld) [#/Vol]0.67 10*3/uLNormal0.10-1.20 [facility] on above:Performed By: #### GLYHGB #### [address] [address] [address] [employer] Interaction Designer: David Ge MD #### CDP, CP #### [address] [place], [place] [id number] [employer] Interaction Designer: RUDY Mcdonoughonocytes/100 WBC (Bld)9 %Normal3-12German HospitalComment on above:Performed By: #### GLYHGB #### [address] [address] [employer]x Interaction Designer: David Ge MD #### CDP, CP #### [address] [place], [place] [id number] [employer] Interaction Designer: Ramona Hurd MDNeutrophil (Seg)54 %Nkyivw40-21NmfcbGerman HospitalComment on above:Performed By: #### GLYHGB #### [address] [address] Ux Interaction Designer: David Ge MD #### CDP, CP #### [address] [place] [address] Ux Interaction Designer: Ramona Hrud MDNRBC Automated0.0 per 100 WBCNormal0.0[facility] on above:Performed By: #### GLYHGB #### [address] [address] [employer] Interaction Designer: David Ge MD #### CDP, CP #### [address] [place] [address] Ux Interaction Designer: JOSE ANGEL Mcdonoughlatelet mean volume (Bld) [Entitic vol]10.3 fL Normal8.1-13.5German HospitalComhutzel women's hospital on above:Performed By: #### GLYHGB #### [address] [address] [place] [address] Ux Interaction Designer: David Ge MD #### CDP, CP #### [address] [place], [place] [id number] Ux Interaction Designer: JOSE ANGEL Mcdonoughlatelets (d) [#/Vol]220 10*3/xSHbzqjz216-894 German HospitalComment on above:Performed By: #### GLYHGB #### [address] [address] [employer]x Interaction Designer: David Ge MD #### CDP, CP #### [address] [place], [place] [id number] U[employer] Interaction Designer: LISSA McdonoughBC (d) [#/Vol]3.79 10*6/uLLow4.21-5.77German HospitalComment on above:Performed By: #### GLYHGB #### [address] [address] [employer] Interaction Designer: David Ge MD #### CDP, CP #### [address] [place], [place] 45[address]383 Ux Interaction Designer: Ramona Hurd MDWBC (d) [#/Vol]7.6 10*3/uLNormal3.5-11.3MCrystal Clinic Orthopedic CenterComment on above:Performed By: #### GLYHGB #### [address] [place] [address] [employer]x Interaction Designer: David Ge MD #### CDP, CP #### [address] [place], [place] 759[address]83 Ux Interaction Designer: Ramona Hurd [facility] Metabolic Profon 08-02-2021(cont.)NormalGerman HospitalComment on above:Result Comment: Average GFR for 60-69 years old: 85 mL/min/1.73sq m Chronic Kidney Disease: <60 mL/min/1.73sq m Kidney failure: <15 mL/min/1.73sq m eGFR calculated using average adult body mass. Additional eGFR calculator available at: http://www.ShopWell/multiple_crcl_2012.htmPerformed By: #### GLYHGB #### [address] [address] [employer] Interaction Designer: David Ge MD #### CDP, CP #### [address] [place], [place] [phone] Ux Interaction Designer: Ramona Hurd MDAlbumin [Mass/Vol]4.7 g/dLNormal3.5-5.2MCrystal Clinic Orthopedic CenterComment on above:Performed By: #### GLYHGB #### [address] [address] [employer]x Interaction Designer: David Ge MD #### CDP, CP #### [address] [place] [address] Ux Interaction Designer: Ramona Hurd MDAlbumin/Glob Ratio1.8Rawvjn1.0-2.5German HospitalComment on above:Performed By: #### GLYHGB #### [address] [address] [employer] Interaction Designer: David Ge MD #### CDP, CP #### [address] [place], [place] [id number] Ux Interaction Designer: Gabi Mcdonoughline Ccpb020 U/OTaxp56-835OoqseGerman HospitalComment on above:Performed By: #### GLYHGB #### [address] [address] [employer] Interaction Designer: David Ge MD #### CDP, CP #### [address] [place], [place] 3759383 Ux Interaction Designer: Ramona Hurd MDALT [Catalytic activity/Vol]24 U/LNormal5-41German HospitalComment on above:Performed By: #### GLYHGB #### [address] [address] [employer] Interaction Designer: David Ge MD #### CDP, CP #### [address] [place] [address] [employer] Interaction Designer: Ramona Hurd MDAnichuy gap [Moles/Vol]12 mmol/LNormal9-17German HospitalComment on above:Performed By: #### GLYHGB #### [address] [address] [employer] Interaction Designer: David Ge MD #### CDP, CP #### [address] [place] [address] [employer] Interaction Designer: Ramona Hurd MDAST [Catalytic activity/Vol]20 U/LNormal<40German HospitalComment on above:Performed By: #### GLYHGB #### [address] [address] [employer]x Interaction Designer: David Ge MD #### CDP, CP #### [address] [place], [place] 7[address]83 Ux Interaction Designer: Ramona Hurd MDBilirubin [Mass/Vol]0.30 mg/dLNormal0.3-1.2Mercy Connecticut HospiceComment on above:Performed By: #### GLYHGB #### [address] [address] Ux Interaction Designer: David Ge MD #### CDP, CP #### [address] [place], [place] [phone] Ux Interaction Designer: Ramona Hurd MDBUN/CRE Ptnkm95Ahgm7-49MxmxsGerman Hospital Comment on above:Performed By: #### GLYHGB #### [facility] [address] [place] [address] Ux Interaction Designer: David Ge MD #### CDP, CP #### [address] [place], [place] [id number] Ux Interaction Designer: MEGA Mcdonoughalcium [Mass/Vol]9.6 mg/dLNormal8.6-10.4[facility] HospitalComment on above:Performed By: #### GLYHGB #### [address] [place] [address] [employer]x Interaction Designer: David Ge MD #### CDP, CP #### [address] [place] [phone] Ux Interaction Designer: MEGA Mcdonoughhloride [Moles/Vol]103 mmol/ONpuqyx97-690Eraiq Tiffin HospitalComment on above:Performed By: #### GLYHGB #### [address] [place] [address] Ux Interaction Designer: David Ge MD #### CDP, CP #### [address] [place] [id number] Ux Interaction Designer: MEGA McdonoughO2 [Moles/Vol]24 mmol/RNgnwph72-11Igtdg Tiffin HospitalComment on above:Performed By: #### GLYHGB #### [address] [place] [address] [employer]x Interaction Designer: David Ge MD #### CDP, CP #### [address] [place], [place] 533[address]83 Ux Interaction Designer: MEGA Mcdonoughreatinine [Mass/Vol]1.27 mg/dLHigh0.70-1.20German HospitalComment on above:Performed By: #### GLYHGB #### [address] [address] Ux Interaction Designer: David Ge MD #### CDP, CP #### [address] [place], [place] 280[address]83 Ux Interaction Designer: Ramona Hurd MDGFR, Amer>60Normal>60[facility] Comment on above:Performed By: #### GLYHGB #### [address] [address] Ux Interaction Designer: David Ge MD #### CDP, CP #### [address] [place], [place] [id number] Ux Interaction Designer: Ramona Hurd MDGFR,non Amer57 mL/minLow>60German HospitalComment on above:Performed By: #### GLYHGB #### [address] [address] Ux Interaction Designer: David Ge MD #### CDP, CP #### [address] [place], [place] 4395483 Ux Interaction Designer: Ramona Hurd MDGlucose [Mass/Vol]155 mg/eZErhs47-61Fwfzn Springdale HospitalComment on above:Performed By: #### GLYHGB #### [address] [address] Ux Interaction Designer: David Ge MD #### CDP, CP #### [address] [place], [place] 411[address] Ux Interaction Designer: JOSE ANGEL Mcdonoughotassium [Moles/Vol]4.9 mmol/LNormal3.7-5.3[facility]dale HospitalComment on above:Performed By: #### GLYHGB #### [address], [place] 5384308 Ux Interaction Designer: David Ge MD #### CDP, CP #### [address] [place] [address] Ux Interaction Designer: JOSE ANGEL Mcdonoughrotein [Mass/Vol]7.6 g/dLNormal6.4-8.3Mer[facility] Connecticut HospiceComment on above:Performed By: #### GLYHGB #### [address] [address] Ux Interaction Designer: David Ge MD #### CDP, CP #### [address] [place] [address] Ux Interaction Designer: ISI Mcdonoughodium [Moles/Vol]139 mmol/LCgxbsy956-309GkldzGerman HospitalComment on above:Performed By: #### GLYHGB #### [address] [address] Ux Interaction Designer: David Ge MD #### CDP, CP #### [address] [place] [address] Ux Interaction Designer: ISI Mcdonoughtaging:[facility] HospitalComment on above:Result Comment: Stage 1: Some kidney damage normal GFR Stage 2: Mild kidney damage GFR 60-89 Stage 3: Moderate kidney damage GFR 30-59 Stage 4: Severe kidney damage GFR 15-29 Stage 5: Severe kidney damage GFR <15 ESRD - chronic treatment by dialysis or transplantPerformed By: #### GLYHGB #### [address] [address] Ux Interaction Designer: David Ge MD #### CDP, CP #### [address] [place] [address] Ux Interaction Designer: Ramona Hurd MDUrea nitrogen [Mass/Vol]28 mg/dLHigh8-23German HospitalComment on above:Performed By: #### GLYHGB #### [facility] [address] [place], [place] [id number] Ux Interaction Designer: David Ge MD #### CDP, CP #### [facility] [address] [place] [address] [place] [place], [place] [id number] Ux Interaction Designer: RUDY McdonoughRSA, DNA, Nasalon [id number] Description .NASAL SWABNormSelect Medical Specialty Hospital - TrumbullComment on above:Performed By: #### MRSANO #### [facility] [address] [place] [address] Ux Interaction Designer: David Ge MD [facility] [address] [place] [address] [place] [address] Ux Interaction Designer: Ramona Hurd MDXR CHEST (2 VW)on 08-02-2583MT CHEST (2 VW) EXAMINATION: TWO XRAY VIEWS OF THE CHEST 08/02/2021 1:05 pm COMPARISON: None. HISTORY: ORDERING SYSTEM PROVIDED HISTORY: pre-op TECHNOLOGIST PROVIDED HISTORY: pre-op FINDINGS: No acute airspace infiltrate. No pneumothorax or pleural effusion. The cardiomediastinal silhouette is within normal limits. Vertebroplasty changes in the thoracic spine. IMPRESSION: No acute cardiopulmonary findings. Interpreted by: Bret Bae Signed by: Bret Bae 08/02/21 Final resultNoMetroHealth Parma Medical Center acute cardiopulmonary findings. [facility] CONSOLIDATEDEXAMINATION: TWO XRAY VIEWS OF THE CHEST 08/02/2021 1:05 pm COMPARISON: None. HISTORY: ORDERING SYSTEM PROVIDED HISTORY: pre-op TECHNOLOGIST PROVIDED HISTORY: pre-op FINDINGS: No acute airspace infiltrate. No pneumothorax or pleural effusion. The cardiomediastinal silhouette is within normal limits. Vertebroplasty changes in the thoracic spine. [facility] Bret Fernandes - 08/02/2021 EXAMINATION: TWO XRAY VIEWS OF THE CHEST 08/02/2021 1:05 pm COMPARISON: None. HISTORY: ORDERING SYSTEM PROVIDED HISTORY: pre-op TECHNOLOGIST PROVIDED HISTORY: pre-op FINDINGS: No acute airspace infiltrate. No pneumothorax or pleural effusion. The cardiomediastinal silhouette is within normal limits. Vertebroplasty changes in the thoracic spine. IMPRESSION: No acute cardiopulmonary findings. [employer] Phone: radiology Study observation (narrative)[employer] Phone: XR CHEST (2 VW)Ordered By: Bret Bea on [id number] Board Member Services Phone: CBCOrdered By: Grover Born on 54-40-9952Xutfxtvqow (Bld) [Volume fraction]27.4 %Low42.0 - 52.0 %[employer] Phone: Hemoglobin.gastrointestinal spec 1 Ql (Stl)9.1 g/dLLow 14.0 - 18.0 g/dLDiligent Board Member Services Phone: Interpretation and review of laboratory results AbnormalSamaritan North Health CenterPRX Phone: MCH (RBC) [Entitic mass]32.7 rpCszj78.0 - 31.3 pgDiligent Board Member Services Phone: MCHC (RBC) [Mass/Vol]33.2 %33.0 - 37.0 %[employer] Phone: MCV (RBC) [Entitic vol]98.3 fL80.0 - 100.0 fLDiligent Board Member Services Phone: platelet distribution width (Bld) [Ratio]13.2 %11.5 - 14.5 %[employer] Phone: platelets (Bld) [#/Vol]173 10*3/uL130 - 400 K/[employer] Phone: RBC (Bld) [#/Vol]2.78 10*6/uLLowDiligent Board Member Services Phone: WBC (Bld) [#/Vol]12.7 10*3/uLHigh4.8 - 10.8 K/[facility] [employer] Phone: cBC With Platelet No Differentialon 12-08-2020 Erythrocyte distribution width (RBC) [Ratio]13.2 %Xnbscx21.5-14.5The Memorial HospitalComment on above:Performed By: #### PGLU #### [facility] [address] [place] [address] Wzenevqqiu (Bld) [Volume fraction]27.4 %Low42.0-52.0The Memorial HospitalComment on above:Performed By: #### PGLU #### [facility] [address] [place] [address] Wjhnpumdjn (Bld) [Mass/Vol]9.1 g/dLLow14.0-18.0The Memorial HospitalComment on above:Performed By: #### PGLU #### [facility] [address] [place] [address] ORA (RBC) [Entitic mass]32.7 pgCritically high27.0-31.3MBanner Fort Collins Medical CenterComment on above:Performed By: #### PGLU #### [facility] [address] [place] [address] JSGX78.2 %Awrhjn97.0-37.0The Memorial HospitalComment on above:Performed By: #### PGLU #### [facility] [address] [place] [address] EPX (RBC) [Entitic vol]98.3 bAPolhfb68.0-100.0The Memorial HospitalComment on above:Performed By: #### PGLU #### [facility] [address] [place] [address] Kpievchtw (Bld) [#/Vol]173 10*3/jWXgtrbl270-708NrpwvThe Memorial HospitalComment on above:Performed By: #### PGLU #### [facility] [address] [place] [address] VXW (Bld) [#/Vol]2.78 10*6/uLLow4.70-6.10The Memorial HospitalComment on above:Performed By: #### PGLU #### [facility] [address] [place] [address] NFW (Bld) [#/Vol]12.7 10*3/uLCritically high4.8-10.8The Memorial HospitalComment on above:Performed By: #### PGLU #### [facility] [address] [place] [address] Mq Panel InformationOrdered By: Hernandez Tovar on 28-01-3043Fblkf [employer] Work Phone: pOCT Glucoseon 52-03-8319Hlnkvql [Mass/Vol]145 mg/dL Critically erzm96-187Juqaq[address] [place], [place] [address]Comment on above:Performed By: #### PGLU #### [facility] [address] [place] [address] OGR Performed onLAKE CITY HOSPITAL AND CLINICUDenver Health Medical CenterComment on above:Result Comment: Notified RN or MDPerformed By: #### PGLU #### [facility] [address] [place] [address] Pvxeeot [Mass/Vol]119 mg/dLCritically xcyl55-447Vwcov95 [address]borne StreetComment on above:Performed By: #### PGLU #### [facility] [address] [place] [address] TYE Performed onLAKE CITY HOSPITAL AND CLINICUDenver Health Medical CenterComment on above:Result Comment: Notified RN or MDPerformed By: #### PGLU #### [facility] [address] [place] [address] Qaxmtbk [Mass/Vol]150 mg/dLCritically yuek33-533Kwvpt95 Osborne StreetComment on above:Performed By: #### PGLU #### [facility] [address] [place] [address] FDQ Performed onMcKee Medical CenterComment on above:Performed By: #### PGLU #### [facility] [address] [place] [id number] poct GlucoseOrdered By: Unknown Result on 06-05-4274Vwmkavn [Mass/Vol]145 mg/uLLdgg33 - 115 mg/dlMercy Health Work Phone: Interpretation and review of laboratory results AbnormalMercy Health Work Phone: performed onACCU-CHEKMercy Health Work Phone: comment on above:Notified RN or MDMercy Health Work Phone: Glucose [Mass/Vol]119 mg/oHLjii70 - 115 mg/dlMercy Health Work Phone: Interpretation and review of laboratory results AbnormalMercy Health Work Phone: performed onACCU-CHEKMercy Health Work Phone: comment on above:Notified RN or MDMercy Health Work Phone: Glucose [Mass/Vol]150 mg/mHCsux97 - 115 mg/dlMercy Health Work Phone: Interpretation and review of laboratory results AbnormalMercy Health Work Phone: performed onACCU-CHEKMercy Health Work Phone: [facility] Work Phone: surgical PathologyOrdered By: Hernandez Tovar on 12-08-2020 [facility] [address] [place], [place] [address] FINAL SURGICAL PATHOLOGY REPORT Patient Name: DEONDRE LR Accession No: [id number] Age Sex: 1955 Location: [facility] [id number] Account No: [id number] Collected: 12/06/2020 Med Rec No: [id number] Received: 12/06/2020 Attend Phys: HERNANDEZ TOVAR Completed: [...] in toto in two cassettes following decalcification. SYLWIA/TOBIN CPT:41622 X1 27262 X1 MAIA DUGAN M.D. 12/08/2020 Electronically signed out by Page 1 of [facility] Phone: basic Metabolic Panel Reflex Mgon 45-93-4466Lxroc gap [Moles/Vol]11 mmol/LNormal9-15The Memorial HospitalComment on above: Performed By: #### BMPX #### [facility] [address] [address] Dfscpvk [Mass/Vol]8.6 mg/dLNormal8.5-9.9The Memorial HospitalComment on above:Performed By: #### BMPX #### [facility] [address] [place] [address] Ukqddphw [Moles/Vol]102 mmol/AOdejkr63-229LzcuyThe Memorial HospitalComment on above:Performed By: #### BMPX #### [facility] [address] [place] [address] AN7 [Moles/Vol]25 mmol/HQrvxtu92-10DmvzaThe Memorial Hospital Comment on above:Performed By: #### BMPX #### [facility] [address] [place] [address] Egeupfcgfq [Mass/Vol]1.15 mg/dLNormal0.70-1.20The Memorial HospitalComment on above:Performed By: #### BMPX #### [facility] [address] [place] [address] EWI>60.0Normal>60The Memorial HospitalComment on above: Result Comment: >60 mL/min/1.73m2 EGFR, calc. for ages 18 and older using the MDRD formula (not corrected for weight), is valid for stable renal function.Performed By: #### BMPX #### [facility] [address] [place] [address] BYP/1.73 sq M.predicted among blacks MDRD (S/P/Bld) [Vol rate/Area] mL/min/{1.73_m2}Normal>60The Memorial HospitalComment on above:Result Comment: >60 mL/min/1.73m2 EGFR, calc. for ages 18 and older using the MDRD formula (not corrected for weight), is valid for stable renal function.Performed By: #### BMPX #### [facility] [address] [place] [address] Jodoroy [Mass/Vol]160 mg/dLCritically vsme00-47VhofoBanner Fort Collins Medical CenterComment on above:Performed By: #### BMPX #### [facility] [address] [place] [address] Blhnrrkbo [Moles/Vol]4.8 mmol/LNormal3.4-4.9The Memorial HospitalComment on above:Performed By: #### BMPX #### [facility] [address] [place] [address] Nxhvyj [Moles/Vol]138 mmol/OAwhpcj814-028UllrgThe Memorial HospitalComment on above:Performed By: #### BMPX #### [facility] [address] [place] [address] Ebcp nitrogen [Mass/Vol]18 mg/dLNormal8-23The Memorial HospitalComment on above:Performed By: #### BMPX #### [facility] [address] [place] [address] Jgfst Metabolic Panel w/ Reflex to MGOrdered By: Hernandez Tovar on 26-16-4682Sphcz gap [Moles/Vol]11 mmol/LMpremier health miami valley hospital northy [employer] Phone: calcium [Mass/Vol]8.6 mg/dL8.5 - 9.9 mg/dLSamaritan North Health CenterPRX Phone: chloride [Moles/Vol]102 mmol/LMwhite hospital [employer] Phone: cO2 [Moles/Vol]25 mmol/LMwhite hospital [employer] Phone: creatinine [Mass/Vol]1.15 mg/dL0.70 - 1.20 mg/dLSamaritan North Health CenterPRX Phone: GFR >60.0>60Samaritan North Health CenterPRX Phone: comment on above:>60 mL/min/1.73m2 EGFR, calc. for ages 18 and older using the MDRD formula (not corrected for weight), is valid for stable renal function. GFR Non->60.0>60Sam[facility] North Health CenterPRX Phone: comment on above:>60 mL/min/1.73m2 EGFR, calc. for ages 18 and older using the MDRD formula (not corrected for weight), is valid for stable renal function. Glucose [Mass/Vol]160 mg/mCPdzh15 - 99 mg/dLSamaritan North Health CenterPRX Phone: Interpretation and review of laboratory results AbnormalU[facility] [employer] Phone: potassium reflex Magnesium4.8[facility] [employer] Phone: sodium [Moles/Vol]138 mmol/LMwhite hospital [employer] Phone: Urea nitrogen (BldV) [Mass/Vol]18 mg/dL8 - 23 mg/dL [facility] [employer] Phone: [facility] CenterPRX Phone: UBC With Platelet and Differentialon 12-07-2020 Basophils (Bld) [#/Vol]0.0 10*3/uLNormal0.0-0.2[facility] Comment on above:Performed By: #### CBCWD #### [facility] [address] [place] [address] Qldryyxly/100 WBC (Bld)0.1 %[facility] Comment on above:Performed By: #### CBCWD #### [facility] [address] [place] [address] Hekmsvcmkds (Bld) [#/Vol]0.0 10*3/uLNormal0.0-0.7The Memorial HospitalComment on above:Performed By: #### CBCWD #### [facility] [address] [place] [address] Tzqcwuolomr/100 WBC (Bld)0.0 %[facility] Comment on above:Performed By: #### CBCWD #### [facility] [address] [place] [address] Rvokcugqbsv distribution width (RBC) [Ratio]12.9 %Jdhwjf03.5-14.5 The Memorial HospitalComment on above:Performed By: #### CBCWD #### [facility] [address] [place] [address] Ustotphrbb (Bld) [Volume fraction]27.8 %Low42.0-52.0The Memorial HospitalComment on above:Performed By: #### CBCWD #### [facility] [address] [place] [address] Eianeqywnj (Bld) [Mass/Vol]9.3 g/dLLow14.0-18.0The Memorial HospitalComment on above:Performed By: #### CBCWD #### [facility] [address] [place] [address] Mtkkaigjujr (Bld) [#/Vol]1.1 10*3/uLNormal1.0-4.8The Memorial HospitalComment on above:Performed By: #### CBCWD #### [facility] [address] [place] [address] Cerezzfermr/100 WBC (Bld)7.7 %[facility] Comment on above:Performed By: #### CBCWD #### [facility] [address] [place] [address] ECD (RBC) [Entitic mass]32.6 pgCritically high27.0-31.3MBanner Fort Collins Medical CenterComment on above:Performed By: #### CBCWD #### [facility] [address] [place] [address] RXPK44.3 %Jqguhv27.0-37.0The Memorial HospitalComment on above:Performed By: #### CBCWD #### [facility] [address] [place] [address] HLU (RBC) [Entitic vol]97.8 rZLiovgv61.0-100.0The Memorial HospitalComment on above:Performed By: #### CBCWD #### [facility] [address] [place] [address] Kypudqzbl (Bld) [#/Vol]1.5 10*3/uLCritically high0.2-0.8The Memorial HospitalComment on above:Performed By: #### CBCWD #### [facility] [address] [place] [address] Gfbclcakb/100 WBC (Bld)10.1 %[facility] Comment on above:Performed By: #### CBCWD #### [facility] [address] [place] [address] Yqjejipwcph (Bld) [#/Vol]11.8 10*3/uLCritically high1.4-6.5The Memorial HospitalComment on above:Performed By: #### CBCWD #### [facility] [address] [place] [address] Djlnvyjfupn/100 WBC (Bld)82.1 %NormalMercy Regional Medical Center Comment on above:Performed By: #### CBCWD #### [facility] [address] [place] [address] Ruhzpzojn (Bld) [#/Vol]183 10*3/lPDbzyvs518-656JobeaThe Memorial HospitalComment on above:Performed By: #### CBCWD #### [facility] [address] [place] [address] SBR (Bld) [#/Vol]2.84 10*6/uLLow4.70-6.10The Memorial HospitalComment on above:Performed By: #### CBCWD #### [facility] [address] [place] [address] AWF (Bld) [#/Vol]14.3 10*3/uLCritically high4.8-10.8The Memorial HospitalComment on above:Performed By: #### CBCWD #### [facility] [address] [place] [address] NXQ auto differentialOrdered By: Hernandez Tovar on 69-54-0562Horkfzzhj (Bld) [#/Vol]0.0 10*3/uL0.0 - 0.2 K/uLSamaritan North Health CenterRSP Tooling Work Phone: Basophils/100 WBC (Bld)0.1 %[employer] Phone: eosinophils (Bld) [#/Vol]0.0 10*3/uL0.0 - 0.7 K/uL [employer] Phone: Eosinophils/100 WBC (Bld)0 %[employer] Phone: Hematocrit (Bld) [Volume fraction]27.8 %Low42.0 - 52.0 %[employer] Phone: Hemoglobin.gastrointestinal spec 1 Ql (Stl)9.3 g/dLLow 14.0 - 18.0 g/dLDiligent Board Member Services Phone: Interpretation and review of laboratory results AbnormalSamaritan North Health CenterPRX Phone: Lymphocytes (Bld) [#/Vol]1.1 10*3/uL1.0 - 4.8 K/uL [employer] Phone: [phone]/100 WBC (Bld)7.7 %[employer] Phone: [phone] (RBC) [Entitic mass]32.6 yqRniw31.0 - 31.3 pgSamaritan North Health CenterPRX Phone: [phone] (RBC) [Mass/Vol]33.3 %33.0 - 37.0 %[employer] Phone: MCV (RBC) [Entitic vol]97.8 fL80.0 - 100.0 fLDiligent Board Member Services Phone: [phone] (Bld) [#/Vol]1.5 10*3/uLHigh0.2 - 0.8 K/uL [facility] Phone: [phone]/100 WBC (Bld)10.1 %[facility] Phone: Neutrophils Bwzsxouj33.8 K/uLHigh1.4 - 6.5 51 AutoSamaritan North Health CenterPRX Phone: Neutrophils/100 WBC (Bld)82.1 %[facility] Phone: Platelet distribution width (Bld) [Ratio]12.9 %11.5 - 14.5 %[facility] Phone: [phone] (Bld) [#/Vol]183 10*3/uL130 - 400 K/Respiratory MotionSamaritan North Health CenterPRX Phone: RBC (Bld) [#/Vol]2.84 10*6/uLLowSamaritan North Health CenterPRX Phone: [phone] (Bld) [#/Vol]14.3 10*3/uLHigh4.8 - 10.8 K/DoughertyPRX Phone: [facility] CenterPR[facility] Phone: FLUORO FOR SURGICAL PROCEDURESOrdered By: Hernandez Tovar on 85-11-9030Xin, Chpo Incoming Radiant Results From [employer]e/Pacs - 12/07/2020 1:12 PM EDT FLUORO FOR SURGICAL PROCEDURES : 12/06/2020 10:30 AM CLINICAL HISTORY: R52 Pain ICD10. COMPARISON: None available. Intraoperative fluoroscopy was provided for Dr. Tovar procedure. A total of 71.7 seconds of fluoroscopy was used, with 4 fluoroscopic stills saved. No diagnostic images were obtained. Please see Dr. Tovar surgical notes for completeness. [facility] [employer] [facility] Phone: [facility] CenterPR[facility] Phone: pOCT Glucoseon 17-01-9573Gsgeobb [Mass/Vol]143 mg/dL Critically wayc12-302Jfiia[address] [place], [place] [address]Comment on above:Performed By: #### PGLU #### [facility] [address] [place] [address] JMS Performed onMcKee Medical CenterComment on above:Performed By: #### PGLU #### [facility] [address] [place] [address] Xjmhwim [Mass/Vol]152 mg/dLCritically nbna17-744Ugvth95 Osborne StreetComment on above:Performed By: #### PGLU #### [facility] [address] [place] [address] GZU Performed onLAKE CITY HOSPITAL AND CLINICUDenver Health Medical CenterComment on above:Performed By: #### PGLU #### [facility] [address] [place] [address] Sxsbjcb [Mass/Vol]272 mg/dLCritically lyzt22-791Litvu[address] [place], [place] [address]Comment on above:Performed By: #### PGLU #### [facility] [address] [place] [address] KDV Performed onACCU-CHEKNormalMercy Regional Medical CenterComment on above:Performed By: #### PGLU #### [facility] [address] [place] [address] Dbflbfo [Mass/Vol]178 mg/dLCritically aijr21-895HuryaThe Memorial HospitalComment on above:Performed By: #### PGLU #### [facility] [address] [place] [address] IGS Performed onLAKE CITY HOSPITAL AND CLINICUREGIONAL MEDICAL CENTERKNSt. Francis HospitalComment on above:Performed By: #### PGLU #### [facility] [address] [place] [address] MJLK GlucoseOrdered By: Unknown Result on 28-34-2059Mvbxhxm [Mass/Vol]143 mg/uFWlcd13 - 115 mg/dlUc [facility] Hospital [employer] Work Phone: Interpretation and review of laboratory results AbnormalMer Health Work Phone: performed onACCU-CHEKMercy Health Work Phone: [facility] Work Phone: Glucose [Mass/Vol]152 mg/qHCzhk24 - 115 mg/dlMer [employer] Work Phone: Interpretation and review of laboratory results AbnormalMercy Health Work Phone: performed onACCU-CHEKMercy Health Work Phone: [facility] Work Phone: Glucose [Mass/Vol]272 mg/iYWskg04 - 115 mg/dlMercy Health Work Phone: Interpretation and review of laboratory results AbnormalMercy Health Work Phone: performed onACCU-CHEKMercy Health Work Phone: [facility] Work Phone: Glucose [Mass/Vol]178 mg/kXIixz82 - 115 mg/dlMercy Health Work Phone: Interpretation and review of laboratory results AbnormalSamaritan North Health CenterPRX Phone: performed onL[facility] [employer] Work Phone: [facility] CenterPRX Phone: XR LUMBAR SPINE (2-3 VIEWS)on 27-81-9575HL LUMBAR SPINE (2-3 VIEWS)TECHNIQUE: AP AND LATERAL VIEWS OF THE LUMBOSACRAL [...] and laminectomy with pedicle screws and interconnecting rods.Hardware remains intact. New intervertebral body spacer at L4-L5 and unchanged at L5-S1. Multiple surgical saul overlie the posterior lower back,with adjacent soft tissue swelling. Multiple surgical clips [...] Signed by: Liban Solis MD 12/07/20 Final resultNoFamily Health West HospitalXR LUMBAR SPINE (2-3 VIEWS) Ordered By: Hernandez Tovar on 83-02-7751Fqnlhity postoperative changes of L3-L4 posterior laminectomy and stable L4-S1 posterior fusion, with intact hardware. [facility] Phone: TECHNIQUE: AP AND LATERAL VIEWS OF [...] imaged femoral joints. SI joints are unremarkable. [facility] Phone: ebriana, [facility] Incoming Radiant Results From [employer] - 12/07/2020 11:21 AM EDT TECHNIQUE: AP [...] and laminectomy with pedicle screws and interconnecting rods.Hardware remains intact. New intervertebral body spacer at L4-L5 and unchanged at L5-S1. Multiple surgical saul overlie the posterior lower back,with adjacent soft tissue swelling. Multiple surgical clips [...] and stable L4-S1 posterior fusion, with intact hardware.[facility] Phone: [facility] CenterPRX Phone: basic Metabolic Panel Reflex Mgon 51-15-0218Ngsoo gap [Moles/Vol]10 mmol/LNormal9-15The Memorial HospitalComment on above: Performed By: #### BMPX #### [facility] [address] [place] [address] Lsbwhko [Mass/Vol]8.2 mg/dLLow8.5-9.9[facility] Comment on above:Performed By: #### BMPX #### [facility] [address] [place] [address] Goqeqqiw [Moles/Vol]102 mmol/LUyxzkv01-908GkdraThe Memorial HospitalComment on above:Performed By: #### BMPX #### [facility] [address] [place] [address] XW0 [Moles/Vol]25 mmol/MTwnnen12-41XvsbwThe [facility] Comment on above:Performed By: #### BMPX #### [facility] [address] [place] [address] Ldyktgfkmo [Mass/Vol]1.18 mg/dLNormal0.70-1.20The Memorial HospitalComment on above:Performed By: #### BMPX #### [facility] [address] [place] [address] YRA>60.0Normal>60The Memorial HospitalComment on above: Result Comment: >60 mL/min/1.73m2 EGFR, calc. for ages 18 and older using the MDRD formula (not corrected for weight), is valid for stable renal function.Performed By: #### BMPX #### [facility] [address] [place] [address] FAK/1.73 sq M.predicted among blacks MDRD (S/P/Bld) [Vol rate/Area] mL/min/{1.73_m2}Normal>60The Memorial HospitalComment on above:Result Comment: >60 mL/min/1.73m2 EGFR, calc. for ages 18 and older using the MDRD formula (not corrected for weight), is valid for stable renal function.Performed By: #### BMPX #### [facility] [address] [place] [address] Hhgijtk [Mass/Vol]197 mg/dLCritically gbym64-56RdeekBanner Fort Collins Medical CenterComment on above:Performed By: #### BMPX #### [facility] [address] [place] [address] Yidwvaqrd [Moles/Vol]4.1 mmol/LNormal3.4-4.9The Memorial HospitalComment on above:Performed By: #### BMPX #### [facility] [address] [place] [address] Sfrhpw [Moles/Vol]137 mmol/XUckvei554-682GxbtoThe Memorial HospitalComment on above:Performed By: #### BMPX #### [facility] [address] [place] [address] Omkt nitrogen [Mass/Vol]19 mg/dLNormal8-23The Memorial HospitalComment on above:Performed By: #### BMPX #### [facility] [address] [place] [address] Gkgat Metabolic Panel w/ Reflex to MGOrdered By: Hernandez Tovar on 17-03-5683Wykfr gap [Moles/Vol]10 mmol/LMercy Health Work Phone: calcium [Mass/Vol]8.2 mg/dLLow8.5 - 9.9 mg/dLSamaritan North Health CenterRSP Tooling Work Phone: chloride [Moles/Vol]102 mmol/LMercy Health Work Phone: cO2 [Moles/Vol]25 mmol/LMercy Health Work Phone: creatinine [Mass/Vol]1.18 mg/dL0.70 - 1.20 mg/dLUc West Chester Hospital [employer] Work Phone: GFR >60.0>60[facility] CenterRSP Tooling Work Phone: comment on above:>60 mL/min/1.73m2 EGFR, calc. for ages 18 and older using the MDRD formula (not corrected for weight), is valid for stable renal function. GFR Non->60.0>60[facility] [employer] Phone: comment on above:>60 mL/min/1.73m2 EGFR, calc. for ages 18 and older using the MDRD formula (not corrected for weight), is valid for stable renal function. Glucose [Mass/Vol]197 mg/kYZoig25 - 99 mg/dLUc West Chester Hospital [employer] Phone: Interpretation and review of laboratory results AbnormalUc West Chester Hospital [employer] [facility] Phone: potassium reflex Magnesium4.1Mwhite hospital [employer] Phone: sodium [Moles/Vol]137 mmol/LMwhite hospital [employer] Phone: Urea nitrogen (BldV) [Mass/Vol]19 mg/dL8 - 23 mg/dL [facility] [employer] Phone: [facility] [employer] Phone: cBC With Platelet No Differentialon 12-06-2020 Erythrocyte distribution width (RBC) [Ratio]13.1 %Uadopy91.5-14.5The Memorial HospitalComment on above:Performed By: #### CBCND #### [facility] [address] [place] [address] Ptnlvawlam (Bld) [Volume fraction]30.4 %Low42.0-52.0The Memorial HospitalComment on above:Performed By: #### CBCND #### [facility] [address] [place] [address] Soqxkqxkeq (Bld) [Mass/Vol]10.0 g/dLLow14.0-18.0The Memorial HospitalComment on above:Performed By: #### CBCND #### [facility] [address] [place] [address] FMX (RBC) [Entitic mass]32.6 pgCritically high27.0-31.3MBanner Fort Collins Medical CenterComment on above:Performed By: #### CBCND #### [facility] [address] [place] [address] LESP59.9 %Low33.0-37.0The Memorial HospitalComment on above: Performed By: #### CBCND #### [facility] [address] [place] [address] TPC (RBC) [Entitic vol]99.0 iWAiwdao10.0-100.0The Memorial HospitalComment on above:Performed By: #### CBCND #### [facility] [address] [place] [address] Ctryuxajt (Bld) [#/Vol]161 10*3/lYWnsnhb683-451EkhymThe Memorial HospitalComment on above:Performed By: #### CBCND #### [facility] [address] [place] [address] DZH (Bld) [#/Vol]3.07 10*6/uLLow4.70-6.10The Memorial HospitalComment on above:Performed By: #### CBCND #### [facility] [address] [place] [address] ULZ (Bld) [#/Vol]8.4 10*3/uLNormal4.8-10.8The Memorial HospitalComment on above:Performed By: #### CBCND #### [facility] [address] [place] [address] ZPB without DiffOrdered By: Hernandez Tovar on 94-79-3188Dcuqlzfrmk (Bld) [Volume fraction]30.4 %Low42.0 - 52.0 %[facility] CenterCanadian Digital Media Network Mainegeneral [facility] Center Phone: Hemoglobin.gastrointestinal spec 1 Ql (Stl)10.0 g/dL Low14.0 - 18.0 g/dLSamaritan North Health CenterPRX Phone: Interpretation and review of laboratory results AbnormalUc West Chester Hospital [employer] Work Phone: MCH (RBC) [Entitic mass]32.6 bfIumf11.0 - 31.3 pgSamaritan North Health CenterPRX Phone: MCHC (RBC) [Mass/Vol]32.9 %Low33.0 - 37.0 %[employer] Phone: MCV (RBC) [Entitic vol]99.0 fL80.0 - 100.0 fLSamaritan North Health CenterPRX Phone: platelet distribution width (Bld) [Ratio]13.1 %11.5 - 14.5 %[facility] Phone: platelets (Bld) [#/Vol]161 10*3/uL130 - 400 KGodigexSamaritan North Health CenterPRX Phone: rBC (Bld) [#/Vol]3.07 10*6/uLLowSamaritan North Health CenterPRX Phone: WBC (Bld) [#/Vol]8.4 10*3/uL4.8 - 10.8 51 AutoSamaritan North Health CenterPRX Phone: [facility] CenterPRX Phone: No Panel InformationOrdered By: Unknown Result on 41-22-8223Ifaxuvzfqybihd and review of laboratory resultsAbnormalSamaritan North Health CenterPRX Phone: performed onUNC Health Johnston Clayton [employer] Phone: [facility] CenterPRX Phone: pOCT Glucoseon 90-28-9210Rgzvfgh [Mass/Vol]198 mg/dL Critically aegc00-608Oucad[address] [place], [place] [address]Comment on above:Performed By: #### PGLU #### [facility] [address] [place] [address] EBO Performed onLAKE CITY HOSPITAL AND CLINICUDenver Health Medical CenterComment on above:Performed By: #### PGLU #### [facility] [address] [place] [address] Hwbdrue [Mass/Vol]210 mg/dLCritically luym44-512Ysnlf[address] [place], [place] [address]Comment on above:Performed By: #### PGLU #### [facility] [address] [place] [address] QSB Performed [facility] HospitalComment on above:Performed By: #### PGLU #### [facility] [address] [place] [address] Tjkgmbp [Mass/Vol]189 mg/dLCritically czzb24-244AmvbeThe Memorial HospitalComment on above:Performed By: #### PGLU #### [facility] [address] [place] [address] RYD Performed [facility] HospitalComment on above:Performed By: #### PGLU #### [facility] [address] [place] [address] NGS Performed [facility] HospitalComment on above:Performed By: #### PGLU #### [facility] [address] [place] [address] MLMM GlucoseOrdered By: Unknown Result on 46-84-0245Xxzhdgn [Mass/Vol]198 mg/hZVilc50 - 115 mg/dlSamaritan North Health CenterRSP Tooling Work Phone: Interpretation and review of laboratory results AbnormalSamaritan North Health CenterRSP Tooling Work Phone: performed onACCU-CHEKMercy Health Work Phone: [facility] CenterRSP Tooling Work Phone: Glucose [Mass/Vol]210 mg/jECgjl69 - 115 mg/dlSamaritan North Health CenterRSP Tooling Work Phone: Interpretation and review of laboratory results AbnormalMerRSP [employer]ing Work Phone: performed onACCU-CHEKMercy Health Work Phone: [facility] CenterRSP Tooling Work Phone: Glucose [Mass/Vol]189 mg/yJHdxf70 - 115 mg/dlKettering Health Springfield Work Phone: Glucose [Mass/Vol]171 mg/dLCritically alhi20-866[facility] Work Phone: comment on above:Performed By: #### PGLU #### [facility] [address] [place] [address] [phone] Specimenon 83-65-0918Pvbiwwzz SpecimenGood [facility]aritan [facility] [address] [facility] [place], [place] [address] FINAL SURGICAL PATHOLOGY REPORT Patient Name: DEONDRE LR Accession No: [id number] Age Sex: 1955 Location: [place] [id number] Account No: [id number] Collected: 12/06/2020 [facility] Rec No: [id number] Received: 12/06/2020 Attend Phys: HERNANDEZ TOVAR Completed: [...] in two cassettes following decalcification. NORA CPT: 90274 X1 31640 X1 MAIA DUGAN M.D. 12/08/2020 Electronically signed out by Page 1 of 1Invalid Interpretation AdventHealth ParkerComment on above:Performed By: #### PGLU #### [facility] [address] [place] [address] [phone] Metabolic Panelon 41-87-5632Jrbmw gap [Moles/Vol]10 mmol/L Normal-The Memorial HospitalComment on above:Performed By: #### BMP #### [facility] [address] [place] [address] [phone] [Mass/Vol]9.3 mg/dLNormal8.5-9.9The Memorial HospitalComment on above:Performed By: #### BMP #### [facility] [address] [place] [address] Dtfxlqqu [Moles/Vol]108 mmol/LCritically ipts00-595JjrunThe Memorial HospitalComment on above:Performed By: #### BMP #### [facility] [address] [place] [address] MM2 [Moles/Vol]26 mmol/MFefswc34-48AcesbThe Memorial Hospital Comment on above:Performed By: #### BMP #### [facility] [address] [place] [address] Ueqzfvdscs [Mass/Vol]1.03 mg/dLNormal0.70-1.20The Memorial HospitalComment on above:Performed By: #### BMP #### [facility] [address] [place] [address] MTL>60.0Normal>60The Memorial HospitalComment on above: Result Comment: >60 mL/min/1.73m2 EGFR, calc. for ages 18 and older using the MDRD formula (not corrected for weight), is valid for stable renal function.Performed By: #### BMP #### [facility] [address] [place] [address] KWP/1.73 sq M.predicted among blacks MDRD (S/P/Bld) [Vol rate/Area] mL/min/{1.73_m2}Normal>60The Memorial HospitalComment on above:Result Comment: >60 mL/min/1.73m2 EGFR, calc. for ages 18 and older using the MDRD formula (not corrected for weight), is valid for stable renal function.Performed By: #### BMP #### [facility] [address] [place] [address] Uyfrrqf [Mass/Vol]104 mg/dLCritically ajpb37-23RasjkBanner Fort Collins Medical CenterComment on above:Performed By: #### BMP #### [facility] [address] [place] [address] Mltsxdmtn [Moles/Vol]4.3 mmol/LNormal3.4-4.9The Memorial HospitalComment on above:Performed By: #### BMP #### [facility] [address] [place] [address] Hitfci [Moles/Vol]144 mmol/HTnqyaa856-645JnsbmThe Memorial HospitalComment on above:Performed By: #### BMP #### [facility] [address] [place] [address] Aykn nitrogen [Mass/Vol]14 mg/dLNormal8-23The Memorial HospitalComment on above:Performed By: #### BMP #### [facility] [address] [place] [address] CQR With Platelet No Differentialon 91-54-7833Pacyuskpmbk distribution width (RBC) [Ratio]13.2 %Icxasp26.5-14.5The Memorial HospitalComment on above:Performed By: #### CBCND #### [facility] [address] [place] [address] Qbcklwltcd (Bld) [Volume fraction]32.3 %Low42.0-52.0The Memorial HospitalComment on above:Performed By: #### CBCND #### [facility] [address] [place] [address] Brtboxklrj (Bld) [Mass/Vol]11.1 g/dLLow14.0-18.0The Memorial HospitalComment on above:Performed By: #### CBCND #### [facility] [address] [place] [address] UVQ (RBC) [Entitic mass]33.8 pgCritically high27.0-31.3MBanner Fort Collins Medical CenterComment on above:Performed By: #### CBCND #### [facility] [address] [place] [address] NVKP88.4 %Elqrdj52.0-37.0The Memorial HospitalComment on above:Performed By: #### CBCND #### [facility] [address] [place] [address] IRO (RBC) [Entitic vol]98.3 gJXmkfcl55.0-100.0The Memorial HospitalComment on above:Performed By: #### CBCND #### [facility] [address] [place] [address] Kxxmqiiig (Bld) [#/Vol]212 10*3/wVDtgeui909-241HiraoThe Memorial HospitalComment on above:Performed By: #### CBCND #### [place] [address] [place] [address] YIO (Bld) [#/Vol]3.29 10*6/uLLow4.70-6.10The Memorial HospitalComment on above:Performed By: #### CBCND #### [facility] [address] [address] DTE (Bld) [#/Vol]7.5 10*3/uLNormal4.8-10.8The Memorial HospitalComment on above:Performed By: #### CBCND #### [facility] [address] [address] Xnmwisx Thromboplastin Timeon 25-58-1667iXFA Coag (Bld) [Time]33.3 s Auymdg28.4-36.8The Memorial HospitalComment on above:Result Comment: Effective 03/30/2020: Heparin Therapeutic Range: 64.0 ? 98.0 seconds.Performed By: #### PTT #### [facility] [address] [place] [address] Jdtfkuoexdr Timeon 12-87-2453PEJ Coag (PPP) [Relative time]1.0 {INR} NormalThe Memorial HospitalComment on above:Performed By: #### PT #### [facility] [address] [place] [address] MQ Coag (PPP) [Time]13.0 gVpycvm11.3-14.9The Memorial HospitalComment on above:Performed By: #### PT #### [facility] [address] [place] [address] Fvlv and Screen Capture 3 scrn cellon 12-20-5364Rmxl and Screen Capture 3 scrn cellPATIENT: GERONIMO Koroma LOC: [facility] BILL# : [id number] : 1955 SEX: M ORDERED BY: GLORIA ORDAZ ORDERED : 11/25/2020 13:32 COLLECTED: 11/25/2020 13:34 ORDER : [id number] RECEIVED : 11/25/2020 16:04 TEST NAME RESULT UNITS RANGES ABN FL ST ABORH Capture O POS F Antibody 3 Cell Scrn Captu NEG F [facility]itan Medical CenterComment on above:Performed By: #### TS3C #### [facility] [address] [place] [address] LX SPINE ENTIRE (2-3 VIEWS)Ordered By: Belinda Monroe on 11-25-2020 CLINICAL HISTORY:M54.10 [...] The visualized bones are demineralized. There is noacute fracture or subluxation. There is no significant scoliosis. There is evidence of prior kyphoplasty is in the midthoracic spine with mild increased kyphosis of the thoracic spine. The patient isstatus post occlusively discectomy with posterior fusion from L4 to S1 with transpedicular screws and vertical bars the orthopedic hardware is intact. The soft tissues are within normal limits. IMPRESSION There are no acute osseous changes. There is no significant scoliosis.[employer] Phone: edi, [facility] Incoming Radiant Results From [employer] - 11/25/2020 4:28 PM EDT CLINICAL HISTORY:M54.10 [...] acute osseous changes. There is no significant scoliosis.[employer] Phone: [facility] CenterPRX Phone: XR SPINE ENTIRE (2-3 VIEWS)on 93-57-2786SO SPINE ENTIRE (2-3 VIEWS)CLINICAL HISTORY:M54.10 Radiculopathy, unspecified spinal region ICD10 XR [...] Signed by: Les Delgado MD 11/25/20 Final resultNormPlatte Valley Medical CenterPOCT GlucoseOrdered By: Unknown Result on 18-25-5698Fhqcjml [Mass/Vol]127 mg/bNZubt82 - 115 mg/dlUc [facility] Hospital [employer] [facility] Phone: Interpretation and review of laboratory results AbnormalSamaritan North Health CenterRSP Tooling Work Phone: performed onVitrynU-CHESwipe.toercy [employer] Work Phone: Glucose [Mass/Vol]125 mg/dLUc West Chester Hospital [employer] Work Phone: Performed onLAKE CITY HOSPITAL AND CLINICU-CHEKMSmash Buckety [employer] Work Phone: pOCT GlucoseOrdered By: Unknown Result on 06-07-2019 Glucose [Mass/Vol]112 mg/dLUc West Chester Hospital [employer] Work Phone: Performed onACCU-CHEKMercy Health Work Phone: Glucose [Mass/Vol]123 mg/dLUc West Chester Hospital [employer] Work Phone: Performed onLAKE CITY HOSPITAL AND CLINICU-CHEKMercy Health Work Phone: Glucose [Mass/Vol]131 mg/dLSamaritan North Health CenterRSP Tooling Work Phone: Performed onLAKE CITY HOS[facility]ITAL AND CLINICU-CHEKMercy [employer] Work Phone: Glucose [Mass/Vol]110 mg/dLMerRSP [employer] Work Phone: performed onVitrynUCloudWork Work Phone: pOCT GlucoseOrdered By: Unknown Result on 06-06-2019 Glucose [Mass/Vol]117 mg/dLSamaritan North Health CenterRSP Tooling Work Phone: Performed onVitrynU-CHERedfiny Health Work Phone: Glucose [Mass/Vol]126 mg/dLMer [employer] Work Phone: performed onLAKE CITY H[facility] AND CLINICU-CHERedfiny Health Work Phone: Glucose [Mass/Vol]125 mg/dLUc West Chester Hospital [employer] Work Phone: performed onVitrynU-CHECENX Work Phone: Glucose [Mass/Vol]138 mg/dLUc West Chester Hospital [employer] Work Phone: performed onLAKE CITY HOSPITAL AND CLINICUCloudWork Work Phone: Glucose [Mass/Vol]124 mg/dLMer [employer] Work Phone: performed onECO Work Phone: basic Metabolic Panel w/ Reflex to MGOrdered By: Hernandez Guy on 05-85-8200Oymzb gap [Moles/Vol]14 mmol/LMercy Health Work Phone: calcium [Mass/Vol]8.5 mg/dL8.5 - 9.9 mg/dLMer Health Work Phone: chloride [Moles/Vol]98 mmol/LMercy Health Work Phone: cO2 [Moles/Vol]25 mmol/LMercy Health Work Phone: creatinine [Mass/Vol]0.94 mg/dL0.7 - 1.2 mg/dLUc West Chester Hospital [employer] Work Phone: GFR >60.0>60MerPRX Phone: comment on above:>60 mL/min/1.73m2 EGFR, calc. for ages 18 and older using the MDRD formula (not corrected for weight), is valid for stable renal function. GFR Non->60.0>60[facility] CenterPRX Phone: comment on above:>60 mL/min/1.73m2 EGFR, calc. for ages 18 and older using the MDRD formula (not corrected for weight), is valid for stable renal function. Glucose [Mass/Vol]180 mg/tOVybh70 - 99 mg/dLSamaritan North Health CenterPRX Phone: Interpretation and review of laboratory results AbnormalSamaritan North Health CenterPRX Phone: potassium reflex Magnesium3.6Mpremier health miami valley hospital northViedea Phone: sodium [Moles/Vol]137 mmol/LMwhite hospital [employer] [facility] Phone: Urea nitrogen [Mass/Vol]14 mg/dL8 - 23 mg/dLSamaritan North Health CenterPRX Phone: cBC auto differentialOrdered By: Hernandez Tovar on 06-05-2019 Bands Relative1 %[employer] Phone: basophils (Bld) [#/Vol]0.0 10*3/uL0 - 0.2 K/uLSamaritan North Health CenterPRX Phone: basophils/100 WBC (Bld)0.4 %[employer] Phone: eosinophils (Bld) [#/Vol]0.0 10*3/uL0 - 0.7 K/uLSamaritan North Health CenterPRX Phone: eosinophils/100 WBC (Bld)0.1 %[employer] Phone: erythrocyte distribution width (RBC) [Ratio]13.4 %11.5 - 14.5 %[employer] Phone: Hematocrit (Bld) [Volume fraction]32.2 %Low42 - 52 % [employer] Phone: Hemoglobin (Bld) [Mass/Vol]10.6 g/dLLow14 - 18 g/dL [employer] Phone: Interpretation and review of laboratory results AbnormalSamaritan North Health CenterPRX Phone: Lymphocytes (Bld) [#/Vol]1.1 10*3/uL1 - 4.8 [employer] Phone: Lymphocytes/100 WBC (Bld)7.0 %[employer] Phone: Macrocytes Ql (Bld)1+[employer] Phone: MCH (RBC) [Entitic mass]33.3 ktUfvr57 - 31.3 pgDiligent Board Member Services Phone: MCHC33.0 %33 - 37 %[employer] Phone: MCV (RBC) [Entitic vol]101.1 dNFczh11 - 100 fLDiligent Board Member Services Phone: Monocytes (Bld) [#/Vol]0.8 10*3/uL0.2 - 0.8 [employer] Phone: Monocytes/100 WBC (Bld)4.7 %[employer] Phone: Neutrophils Tcvbisqu40.4 K/uLHigh1.4 - 6.5 [employer] Phone: Neutrophils/100 WBC (Bld)88.0 %[employer] Phone: pLATELET SLIDE REVIEWNormalDiligent Board Member Services Phone: platelets (Bld) [#/Vol]223 10*3/uL130 - 400 K/Frugoton Phone: RBC (Bld) [#/Vol]3.19 10*6/uLLowMerRSP Tooling Work Phone: sLIDE REVIEWsee belowMerRSP [employer] Work Phone: comment on above:Slide review agrees with reported resultsWBC (Bld) [#/Vol]15.1 10*3/uLHigh4.8 - 10.8 K/uLMerRSP Tooling Work Phone: pOCT GlucoseOrdered By: Unknown Result on 06-05-2019 Glucose [Mass/Vol]134 mg/dLSamaritan North Health CenterRSP Tooling Work Phone: performed onACCU-CHECENX Work Phone: Glucose [Mass/Vol]166 mg/dLSamaritan North Health CenterPRX Phone: performed onLAKE CITY [facility]INICU-CHERedfiny [employer] Work Phone: Glucose [Mass/Vol]166 mg/dLSamaritan North Health CenterRSP Tooling Work Phone: performed onLAKE CITY [facility]INICU-First Class [employer] Work Phone: Glucose [Mass/Vol]160 mg/zFAhqx36 - 115 mg/dlSamaritan North Health CenterPRX Phone: Interpretation and review of laboratory results AbnormalSamaritan North Health CenterPRX Phone: performed ondoggyloot Phone: surgical PathologyOrdered By: Hernandez Tovar on 06-05-2019 [facility] [address] [place] [address] FINAL SURGICAL PATHOLOGY REPORT Patient Name: DEONDRE LR Accession No: [id number] Age Sex: 1955 Location: [facility] [id number] Account No: [id number] Collected: 06/04/2019 Med Rec No: [id number] Received: 06/04/2019 Attend Phys: HERNANDEZ TOVAR Completed: [...] and A2 for brief decalcification. WADE/TOBIN CPT: 59779 X1 ALDA ELLER M.D. 06/05/2019 Electronically signed out by Page 1 of [facility] Phone: XR LUMBAR SPINE (2-3 VIEWS)Ordered By: Hernandez Tovar on 92-67-1639Ojbxijssjz: 1. Postoperative changes as described above without unexpected postoperative complicating features. 2. Mild bilateral osteoarthritis of the hips.[employer] Phone: patient : 1955 Age: 64 years Gender: Male Order Date: 06/05/2019 11:00 AM. Exam: XR LUMBAR SPINE (2-3 VIEWS) Number of Views: 3 Indication: Postoperative evaluation Comparison: None Findings: Posterior spinal fixation L4-S1, with interbody fusion device placement at L5-S1. Surgical saul. No unexpected postoperative concave features are seen. Surgical clips right upper abdomen. Nonobstructive bowel gas pattern. Mild degenerative changes bilateral hips.[employer] Phone: e, [facility] Incoming Radiant Results From WebLinc/Innohats - 06/05/2019 11:52 AM EST Patient : [...] 2. Mild bilateral osteoarthritis of the hips. [employer] Phone: aPTTOrdered By: Susie Lee on 17-20-2657pJSO Coag (Radha) [Time]32.3 sMSavingspoint Corporation Phone: comment on above:Effective 12/11/2018: Please note methodology and/or reference ranges have changed. aPTT - Heparin Therapeutic Range: 74.0 - 106 seconds Basic Metabolic PanelOrdered By: Susie Lee on 43-67-8216Unsbd gap [Moles/Vol]11 mmol/LMSavingspoint Corporation Phone: calcium [Mass/Vol]9.0 mg/dL8.5 - 9.9 mg/dLDiligent Board Member Services Phone: chloride [Moles/Vol]106 mmol/LMSavingspoint Corporation Phone: cO2 [Moles/Vol]26 mmol/LMSavingspoint Corporation Phone: creatinine [Mass/Vol]0.93 mg/dL0.7 - 1.2 mg/dLDiligent Board Member Services Phone: GFR >60.0>60[employer] Phone: comment on above:>60 mL/min/1.73m2 EGFR, calc. for ages 18 and older using the MDRD formula (not corrected for weight), is valid for stable renal function. GFR Non->60.0>60[employer] Phone: comment on above:>60 mL/min/1.73m2 EGFR, calc. for ages 18 and older using the MDRD formula (not corrected for weight), is valid for stable renal function. Glucose [Mass/Vol]134 mg/mMCgrh92 - 99 mg/dLDiligent Board Member Services Phone: Interpretation and review of laboratory results AbnormalDiligent Board Member Services Phone: potassium [Moles/Vol]4.3 mmol/LMStampt Work Phone: sodium [Moles/Vol]143 mmol/LMSmash Buckety [employer] Work Phone: Urea nitrogen [Mass/Vol]19 mg/dL8 - 23 mg/dLSamaritan North Health CenterPRX Phone: basic Metabolic Panel w/ Reflex to MGOrdered By: Hernandez Tovar on 75-39-4314Vxrcr gap [Moles/Vol]13 mmol/LMercy [employer] Work Phone: calcium [Mass/Vol]8.3 mg/dLLow8.5 - 9.9 mg/dLSamaritan North Health CenterPRX Phone: chloride [Moles/Vol]104 mmol/LMStampt Work Phone: cO2 [Moles/Vol]23 mmol/LMStampt Work Phone: creatinine [Mass/Vol]0.91 mg/dL0.7 - 1.2 mg/dLSamaritan North Health CenterPRX Phone: GFR >60.0>60[employer] Phone: comment on above:>60 mL/min/1.73m2 EGFR, calc. for ages 18 and older using the MDRD formula (not corrected for weight), is valid for stable renal function. GFR Non->60.0>60Samaritan North Health CenterPRX Phone: comment on above:>60 mL/min/1.73m2 EGFR, calc. for ages 18 and older using the MDRD formula (not corrected for weight), is valid for stable renal function. Glucose [Mass/Vol]177 mg/xDRdtj56 - 99 mg/dLSamaritan North Health CenterPRX Phone: Interpretation and review of laboratory results AbnormalSamaritan North Health CenterPRX Phone: potassium reflex Magnesium4.2Mercy [employer] Work Phone: sodium [Moles/Vol]140 mmol/LMSmash Buckety [employer] Work Phone: Urea nitrogen [Mass/Vol]18 mg/dL8 - 23 mg/dLSamaritan North Health CenterPRX Phone: cBCOrdered By: Susie Lee on 50-20-7786Snkovwwnpun distribution width (RBC) [Ratio]13.7 %11.5 - 14.5 %[employer] Phone: Hematocrit (Bld) [Volume fraction]35.1 %Low42 - 52 % [employer] Phone: Hemoglobin (Bld) [Mass/Vol]11.7 g/dLLow14 - 18 g/dL [employer] Phone: Interpretation and review of laboratory results AbnormalSamaritan North Health CenterPRX Phone: MCH (RBC) [Entitic mass]33.6 zdSbue65 - 31.3 pgSamaritan North Health CenterPRX Phone: MCHC33.4 %33 - 37 %[employer] Phone: MCV (RBC) [Entitic vol]100.7 tLSlji93 - 100 fLDiligent Board Member Services Phone: platelets (Bld) [#/Vol]206 10*3/uL130 - 400 K/[employer] Phone: RBC (Bld) [#/Vol]3.48 10*6/uLLowDiligent Board Member Services Phone: WBC (Bld) [#/Vol]7.6 10*3/uL4.8 - 10.8 K/[employer] Phone: cBC without DiffOrdered By: Hernandez Tovar on 06-04-2019 Erythrocyte distribution width (RBC) [Ratio]13.7 %11.5 - 14.5 %[employer] Phone: Hematocrit (Bld) [Volume fraction]32.9 %Low42 - 52 % [employer] Phone: Hemoglobin (Bld) [Mass/Vol]10.7 g/dLLow14 - 18 g/dL [employer] Work Phone: Interpretation and review of laboratory results AbnormalSamaritan North Health CenterRSP Tooling Work Phone: MCH (RBC) [Entitic mass]33.4 ikIvwm28 - 31.3 pgSamaritan North Health CenterRSP Tooling Work Phone: MCHC32.6 %Low33 - 37 %[employer] Work Phone: MCV (RBC) [Entitic vol]102.4 aZEglu08 - 100 fLSamaritan North Health CenterRSP Tooling Work Phone: platelets (Bld) [#/Vol]177 10*3/uL130 - 400 K/Respiratory MotionSamaritan North Health CenterRSP Tooling Work Phone: rBC (Bld) [#/Vol]3.22 10*6/uLLowSamaritan North Health CenterRSP Tooling Work Phone: WBC (Bld) [#/Vol]9.0 10*3/uL4.8 - 10.8 K/Respiratory MotionSamaritan North Health CenterRSP Tooling Work Phone: pOCT GlucoseOrdered By: Unknown Result on 06-04-2019 Glucose [Mass/Vol]181 mg/rOHmdq26 - 115 mg/dlSamaritan North Health CenterRSP Tooling Work Phone: Interpretation and review of laboratory results AbnormalSamaritan North Health CenterRSP Tooling Work Phone: performed onACCU-CHEKMercy Polyplus-transfection Work Phone: Glucose [Mass/Vol]187 mg/eWAcfr90 - 115 mg/dlSamaritan North Health CenterRSP Tooling Work Phone: Interpretation and review of laboratory results AbnormalSamaritan North Health CenterRSP Tooling Work Phone: performed onACCU-CHEKMercy Polyplus-transfection Work Phone: Glucose [Mass/Vol]140 mg/tJDfwv87 - 115 mg/dlSamaritan North Health CenterRSP Tooling Work Phone: Interpretation and review of laboratory results AbnormalSamaritan North Health Centercy Health Work Phone: performed onACCU-CHEKMercy Health Work Phone: [phone]-PNWRyvcqge By: Susie Lee on 72-90-5466TVB Coag (PPP) [Relative time]1.0 {INR}[facility] [employer] Work Phone: comment on above:Warfarin Therapy INR Therapeutic: 2.0-3.0 With Mechanical Valve: >2.5 Low-intensity Therapeutic Range: 1.5-2.0 Mod-intensity Therapeutic Range: 2.0-3.0 High-intensity Therapeutic Range: 2.5-3.5 High-intensity Therapeutic Range: 3.0-4.0 Common Critical/Alarm Value: 5.0 Common Upper Limit Reported: 10.0 Effective 12/04/2018: Please note methodology and/or reference ranges have changed. PT Coag (PPP) [Time]13.1 sMStampt Work Phone: comment on above:Effective 12/04/18 Please note methodology and/or reference ranges have changed. TYPE AND SCREENOrdered By: Susie Lee on 18-99-6452MME/RhPositiveMercy Polyplus-transfection Work Phone: Vital Signs Date TimeVital SignValuePerforming YpzjgjyoeZqbgldub84-47-8161 12:06-0500Blood Pressure LocationAurora Orzech [facility]01-30-2025 12:06-0500Diastolic blood zontniwm29 mm[Hg]Usha OrzeUbi [facility]01-30-2025 12:06-0500Heart rate61 /minAurora Orzech [facility]01-30-2025 12:06-0500Systolic blood jlvdlwun390 mm[Hg]Usha OrzeUbi [facility]06-27-2024 15:23-0400Blood Pressure LocationAurora Orzech [facility]06-27-2024 15:23-0400Body dadkoivwsut20.8 [degF]Usha Orzech [facility]06-27-2024 15:23-0400Diastolic blood trqziuno84 mm[Hg]Usha Orzech [facility]06-27-2024 15:23-0400Heart rate64 /minAurora Orzech [facility]06-27-2024 15:23-0400Respiratory rate18 /minAurora Orzech [facility]06-27-2024 15:23-0400Systolic blood aawasoax738 mm[Hg]Usha Orzech [facility]09-11-2023 15:30-0400Body ylxsga020.1 cmMike Yuan Other [employer] Other 09-11-2023 15:30-0400Body mass index (BMI) [Ratio] 28.05 kg/c2BspduoMike Yuan Other [employer] Other 09-11-2023 15:30-0400Body qxvoqa31.48 kgMike Yuan Other [employer] Other 09-11-2023 15:30-0400Diastolic blood biezszfu09 mm[Hg] Mkie Yuan Other [employer] Other 09-11-2023 15:30-0400Respiratory rate12 /minMike Gee Other [employer] Other 09-11-2023 15:30-0400Systolic blood qvlrajcq00 mm[Hg] Mike Gee Other [employer] Other 06-09-2023 14:45-0400Body .1 cmMike Gee Other [employer] Other 06-09-2023 14:45-0400Body mass index (BMI) [Ratio] 28.95 kg/u1Rlxnjn Gee Other [employer] Other 06-09-2023 14:45-0400Body gjpyft87.93 kgDarlenelisa Yuan Other [employer] Other 06-09-2023 14:45-0400Diastolic blood nuacnmxn41 mm[Hg] Mike Yuan Other [employer] Other 06-09-2023 14:45-0400Systolic blood ctsyucfd34 mm[Hg] Mike Yuan Other [employer] Other 07-13-2022 13:34-3174DzE3% (BldA) [Mass fraction]95 % Skye Garcia MD Work Phone: bon [employer]07-13-2022 13:00-0400Diastolic blood qsxcolsy91 mm[Hg]Skye Garcia MD Work Phone: bon [employer]07-13-2022 13:00-0400Systolic blood rnkegatf18 mm[Hg]Skye Garcia MD Work Phone: bon [employer]07-13-2022 12:51-0400Body buqfji406.1 cmSkye Garcia MD Work Phone: bon [facility]07-13-2022 12:51-0400Body mass index (BMI) [Ratio]29.95 kg/x9UzjeeykSkye Garcia MD Work Phone: bon [facility]07-13-2022 12:51-0400Body qeendd18.65 kgSkye Garcia MD Work Phone: b[facility]07-13-2022 12:51-0400Heart rate70 /minSkye Garcia MD Work Phone: [facility]07-13-2022 12:51-0400 Respiratory rate18 /minSkye Garcia MD Work Phone: [facility]04-13-2022 08:21-0400Body .1 cmZenia Molina MD Work Phone: [place] [phone] 06:42-0400Body axuewwebrkx36.01 [degF]Zenia Molina MD Work Phone: [place] [phone] 06:42-0400Diastolic blood oxejgwcq57 mm[Hg]Zenia Molina MD Work Phone: [place] [address]Krpytm11-90-1489 06:42-0400Heart rate71 /min Zenia Molina MD Work Phone: [place] [address]Rfqhvb56-12-1302 06:42-0400Respiratory rate16 /Tramaine Molina MD Work Phone: [place] [address]Nojabk69-75-1736 06:42-0927HhL0% (BldA) [Mass fraction]93 %Zenia Molina MD Work Phone: [place] [address]Pcknxp61-92-1043 06:42-0400Systolic blood ocngzzfl93 mm[Hg]Zenia Molina MD Work Phone: [place] [address]Umzcro71-59-6848 07:45-0400Body mass index (BMI) [Ratio]29.29 kg/l1BydtuZenia Molina MD Work Phone: [facility]Ybgwpz86-73-6263 07:45-0400Body pvyzzh10.83 kg Zenia Molina MD Work Phone: [facility] SpringfieldPpgrhr26-09-5543 10:36-0400Body vdycls987.1 cm Zenia Molina MD Work Phone: [facility] SpringfieldDtvjho24-42-2932 10:36-0400Body ihwjrqswlfn56.9 [degF]Zenia Molina MD Work Phone: [facility] SpringfieldDtlavg96-30-3871 10:36-0400Diastolic blood mm[Hg]Zenia Molina MD Work Phone: [facility] SpringfieldKlynpo68-45-5985 10:36-0400Heart rate87 /min Zenia Molina MD Work Phone: [facility] SpringfieldGggptn96-21-6741 10:36-0400Respiratory rate18 /minDtigre Molina MD Work Phone: [facility] SpringfieldSirbvs69-13-5732 10:36-4942SgI9% (BldA) [Mass fraction]98 %Zenia Molina MD Work Phone: [facility] SpringfieldKgvjbq30-61-2442 10:36-0400Systolic blood qfosrhvh447 mm[Hg]Zenia Molina MD Work Phone: [facility] SpringfieldVrrocs22-38-8448 10:18-0400Body mass index (BMI) [Ratio]29.45 kg/e2XkykoZenia Molina MD Work Phone: [facility] SpringfieldNpjzkt25-73-2923 10:18-0400Body jukjmc83.29 kg Zenia Molina MD Work Phone: [facility] SpringfieldVndxho54-70-8142 15:01-0400Body hrmxyqanodc33.2 [degF]Hernandez Tovar MD Work Phone: [facility] [employer] Work Phone: 1(969) 518-952307-15-2021 15:01-0400Diastolic blood rpsyqoek49 mm[Hg] Hernandez Tovar MD Work Phone: [facility] [employer] Work Phone: 1(752) 408-585207-15-2021 15:01-0400Heart rate89 /minHernandez Tovar MD Work Phone: [facility] [employer] Work Phone: 1(868)592-064084-83901709-71-2618 15:01-0400Respiratory rate20 /minHernandez Tovar MD Work Phone: [facility] [employer] Work Phone: 1(891)029-292222-71225415-11-2058 15:01-3755BrU3% (BldA) [Mass fraction]98 % Hernandez Tovar MD Work Phone: [facility] [employer] Work Phone: 1(166) 122-472607-15-2021 15:01-0400Systolic blood kidyxmso328 mm[Hg] Hernandez Tovar MD Work Phone: [facility] [employer] Work Phone: 1(293) 647-819107-13-2021 23:35-0400Body .1 cmHernandez Tovar MD Work Phone: [facility] [employer] Work Phone: 1(376) 739-769007-13-2021 23:35-0400Body mass index (BMI) [Ratio] 30.25 kg/m2Hernandez Tovar MD Work Phone: [facility] [employer] Work Phone: 1(858) 585-340307-13-2021 23:35-0400Body zknvri67.46 kgHernandez Tovar MD Work Phone: [facility] CenterRSP [facility]ing Work Phone: 1(545) 992-310501-13-2020 07:22-0500Body mptotqmhmam81.2 [degF]Hernandez Tovar MD Work Phone: [facility] CenterRSP [facility] Work Phone: 1(966) 289-469601-13-2020 07:22-0500Diastolic blood jnliouvi55 mm[Hg] Hernandez Tovar MD Work Phone: [facility] CenterRSP [facility]ing Work Phone: 1(211) 545-463801-13-2020 07:22-0500Heart rate80 /minHernandez Tovar MD Work Phone: [employer] Work Phone: 1(808)[phone]2-9692 07:22-0500Respiratory rate16 /minHernandez Tovar MD Work Phone: mer[employer] Work Phone: 1(320) 393-141101-13-2020 07:22-6898EdF9% (BldA) [Mass fraction]96 % Hernandez Tovar MD Work Phone: [employer] Work Phone: 1(938) 212-332401-13-2020 07:22-0500Systolic blood fhshwvli326 mm[Hg] Hernandez Tovar MD Work Phone: [employer] Work Phone: 1(888) 188-520801-09-2020 06:15-0500Body .6 cmHernandez Tovar MD Work Phone: [employer] Work Phone: 1(815) 551-170601-09-2020 06:15-0500Body mass index (BMI) [Ratio] 30.04 kg/m2Hernandez Tovar MD Work Phone: [employer] Work Phone: 1(619) 986-567101-09-2020 06:15-0500Body wyabut77.38 kgHernandez Tovar MD Work Phone: [employer] Work Phone: Encounters Encounter DateEncounter TypeCare ProviderFacilityStart: 03-22-2025 End: 25-41-9528ocmrvutnswWrpgvh X OrzechFacility:EU SanduskyStart: 03-22-2025 End: 56-80-9624Ufnwdjg encounter procedureAurora X Orzech [facility] Start: 87-53-5436skkygwlylaTFQNGFG S NIENBERGCleveland Clinictart: 01-18-2025 End: 81-47-7754grdrgjeukaDtasij X OrzechFacility:EU VeronicauskyStart: 01-18-2025 End: 98-11-4819Xwkybcb encounter procedureAurora X Orzech [facility] [employer] Start: 12-28-2024 End: 33-65-4896hkeknnnwemZfngrv X OrzechFacility:EU VeronicauskyStart: 12-28-2024 End: 78-84-9009Egsqvrm encounter procedureAurora X Orzech [facility] [employer] Start: 06-25-2024 End: 03-88-4817iwjqkcrshwCthsqf X OrzechFacility:EU AtulyStart: 06-25-2024 End: 84-94-1671Djukutk encounter procedureAurora X Orzech [facility] [employer] Start: 05-12-2024 End: 41-35-2873fmubeydguhHtcbdf X OrzechFacility:SAVANNAH Carvalhotart: 05-12-2024 End: 35-57-7535Xmdomkj encounter procedureAurora X Orzech [facility] [employer] start: 01-14-2024 End: 28-90-9468Wttuksr encounter procedureAurora X Orzech [facility] [employer] start: 11-21-2023 End: 05-45-2197Ohvdujm encounter procedureAurora X Orzech [facility] [employer] Start: 11-19-2023 End: 88-08-8689Mndfise encounter procedureAurora X Orzech [facility] start: 07-18-2023 End: 25-49-6524tdmmvbyvvlYHYOSQM [facility] Hospitaltart: 06-25-2023 End: 78-93-5460mhsvkdgmolYrozog Braun Other [facility]Up[facility] [place] Other Start: 06-30-7699Hcodpdyus encounterMike YuanOhioHealth Berger Hospitaltart: 06-03-2023 End: 66-97-0833zdznkyxrcdOdxwimg Vytautas Giedraitis MDFacility:[place] Start: 03-25-2023 End: 52-09-5531omaqycmeyvJqunatj Vytautas Giedraitis MDFacility:[facility] [place] Start: 02-04-2023 End: 28-38-2171wididudvvhIvarjl Braun Other nouniversity [facility] [place] Other Start: 02-15-0737Zvhcxrt encounter procedureMike YuanOhioHealth Berger Hospitaltart: 12-12-2022 End: 22-31-6393unizrmylzaPxpdtkp DavidFacility:[facility] Centertart: 12-12-2022 End: 85-53-6074yndvpydoueQXFS Rebecca Nelson Work Phone: [facility] Work Phone: Start: 12-12-2022 End: 34-64-9189Fbjuels encounter procedureAPRDago Hernandez Work Phone: [facility] [place] Work Phone: Start: 11-02-2022 End: 00-90-9453pyhldqgtryDzypau Braun Other [place] Other Start: 34-41-9729Veduhn outpatient visit 25 minutes Mike Ames [facility] Dallastart: 10-17-2022 End: 17-64-8981Jfjysmnweo and management of inpatientSCODY KINGWADFacility:H1 Start: 35-07-5439wajrtnlphqEJQRBHHKBJQS LAKSHMIPATHY .Facility:G5Bgonc: 09-24-2022 End: 35-43-3356ghkifxfatjSFXQQMCREAAM LAKSHMIPATHY .Facility:C9Koyls: 09-18-2022 End: 43-23-1764mprhkixygdKIJQKEKZVUTX LAKSHMIPATHY .Facility:B9Kaiwv: 07-31-2022 ambulatoryNARENDRANATH LAKSHMIPATHY .Facility:R7Akuxj: 17-82-9808Kfomegjhu for other preprocedural examinationDR [facility]. [facility] Centertart: 07-05-2022 End: 19-48-9416cdaztaxtyyUD [facility]ITALFacility:U2Ybanl: 07-05-2022 End: 41-06-0954Qrebhwyby for other preprocedural examinationDR [facility] Facility:Q1Oslui: 44-82-0750Rplcqboug for preprocedural cardiovascular examinationDR DOCTOR [facility] Healthtart: 37-84-2816Zhzutpoza for preprocedural laboratory examinationDR DOCTOR MISCenterville HospitalStart: 06-22-2022 End: 66-37-2656nrjsbjosteUJ DOCTOR MISCFacility:A9Uppan: 06-22-2022 End: 50-62-4632Zqyijdabo for preprocedural laboratory examinationDR DOCTOR MISC Facility:U6Uycno: 31-56-3288jdiogoahvnVN LOUISE S TANNER .Facility:N7Ltnno: 05-29-2022 End: 64-96-5339uqzcxvvikpZL LOUISE S TANNER .Facility:O0Emdad: 04-23-2022 End: 49-37-1545rgpoopwuswZD DOCTOR MISCFacility:S6Esfwg: 03-01-2022 End: 59-43-1660itsvdljvoiIQMV SOLIS .Facility:V3Aagjm: 02-13-2022 End: 40-42-9873tdwkkgfzqxVO MARCIA E BRAUNFacility:R1Hvtca: 02-12-2022 End: 01-46-1401vegzpkzaucAM LOUISE Joaquin FLORES .Facility:U6Zzuev: 01-25-2022 End: 87-03-4823eerlepxjjqIPFY SOLIS .Facility:C1Rnzen: 12-06-2021 End: 20-76-4965Rfcflarpk department patient visitRandolph Health HospitalStart: 12-06-2021 End: 72-97-5140Bzweueqxs department patient visitSkye Garcia MD Work Phone: [phone] [place] [address] EDComment on above:Closed fracture of shaft of left humerus, unspecified fracture morphology, initial encounter (Primary Dx)Start: 11-23-2021 End: 72-96-4407cbwmzzwxpwQP MARCIA E BRAUNFacility:E1Uhxye: 11-07-2021 End: 04-75-4890fhmmachoidEHJonathan YUANFacility:U4Btpyj: 09-05-2021 End: 20-71-0658dnmtgvvioiZKYDP [facility] HospitalStart: 09-05-2021 End: 81-17-8176Bnyzgbzbgp hospital visit by Landon Molina MD Work Phone: mthz [facility] CENTERU MED SURGComment on above:Post-op pain (Primary Dx)Start: 08-22-2021 End: 23-85-5944nhlhaguxtyBFCTZ [facility] HospitalStart: 08-22-2021 End: 53-94-6726Vnykejkwqs hospital visit by Landon Molina MD Work Phone: mthz ORStart: 08-02-2021 End: 78-06-9131edbgdltnblQGOSQ NYEMercy Tiffin HospitalStart: 08-02-2021 End: 30-86-0572Xkobnzexsc hospital visit by Birdie Ko [address] [place] [address] RadiologyComment on above:ArrivedStart: 12-06-2020 End: 13-49-5609Qcawikdplj and management of [facility] Oaklandtart: 12-06-2020 End: 00-85-2543thypuigvyoUTPVGTNorthBay VacaValley Hospitaltart: 12-06-2020 End: 56-21-1622Svoqyjdhmu and management of inpatientHernandez Tovar MD Work Phone: mloz 2N NeuroComment on above:Post-op pain (Primary Dx); Muscle spasmStart: 12-06-2020 End: 92-63-1048Wtqzrgscfg hospital visit by Darwin Tovar MD Work Phone: [facility] RadiologyComment on above:Pain Start: 11-25-2020 End: 45-91-0350luhowouilzYLWRLMary Bird Perkins Cancer Centertart: 11-25-2020 End: 14-36-2811Brriajgahfdpx examination doneLorain [address] [place] [address] RadiologyStart: 11-25-2020 End: 82-30-5153Ynkidvtksy hospital visit by physicianLorain Xray Room [address] [place] [address] RadiologyComment on above:Radiculopathy, unspecified spinal region; Pseudoarthrosis of lumbar spine; Pre-op examinationStart: 06-04-2019 End: 53-09-0315Gvmrjajmdx and management of inpatientBo Uyen Tovar MD Work Phone: mloz 2N NeuroComment on above:Post-op pain (Primary Dx); Lumbar degenerative disc disease Procedures DateProcedureProcedure DetailPerforming ClinicianStart: 73-04-3148KM of head without contrastAPRN Berta Hernandez Work Phone: Start: 12-06-2021 End: 03-42-9824Htzbz ribs uni w/posteroant ch minimum 3 viewsSkye Garcia MD Work Phone: start: 05-16-9539XQNIFXF, WHOLE BLOODZenia Molina MD Work Phone: Start: 66-56-8294Scb-scan xtr veins unilateral/limited studyBrady S Wyatt CONTAINER REPAIRER - [employer]BILE SOLUTIONS ARCHITECT Work Phone: Start: 83-58-7894IMYDEPR, WHOLE BLOODZenia Molina MD Work Phone: Start: 55-73-7298Peumx metabolic panel calcium total Zenia Molina MD Work Phone: Start: 46-25-4307PPMZTGL, WHOLE Jett Molina MD Work Phone: Start: 11-85-0746PENNCZA, WHOLE Jett Molina MD Work Phone: Start: 69-68-3952Cfykc shoulder 1 Uma Molina MD Work Phone: Start: 10-65-8902EJQESSC, WHOLE BLOODZenia Molina MD Work Phone: Start: 88-35-9388GBZJGGV, WHOLE BLOODZenia Molina MD Work Phone: Start: 14-99-4971Kdfcpkrxyh exam chest 2 Olivia Molina MD Work Phone: Start: 51-08-4528Ntdi bld gluc mntr dev cleared fda spec home useUnknown Provider ResultStart: 69-58-8791Jxeb bld gluc mntr dev cleared fda spec home useUnknown Provider ResultStart: 09-48-8660Lhyvl count complete automatedAdjondi Brigid Morillo CONTAINER REPAIRER - MOBILE SOLUTIONS ARCHITECT Work Phone: Start: 18-48-6647Uofs bld gluc mntr dev cleared fda spec home useUnknown Provider ResultStart: 08-07-0919Rdgu bld gluc mntr dev cleared fda spec home useUnknown Provider ResultStart: 60-82-7031Xkqa bld gluc mntr dev cleared fda spec home useUnknown Provider ResultStart: 40-71-1848Grzp bld gluc mntr dev cleared fda spec home useUnknown Provider ResultStart: 78-58-9485Dubjh spine lumbosacral 2/3 Lalita Tovar MD Work Phone: Start: 12-07-2020 End: 34-53-8268Cqze bld gluc mntr dev cleared fda spec home useUnknown Provider ResultStart: 87-65-1763AJQFA METABOLIC PANEL W/ REFLEX TO MG FOR LOW KBo H. Guy NIETO Work Phone: Start: 60-92-4181Tgnu bld gluc mntr dev cleared fda spec home useUnknown Provider ResultStart: 41-68-1337Nrwa bld gluc mntr dev cleared fda spec home useUnknown Provider ResultStart: 88-70-4196LADWY METABOLIC PANEL W/ REFLEX TO MG FOR LOW KBo H. Guy NIETO Work Phone: Start: 12-06-2020 End: 24-52-5691Grhj bld gluc mntr dev cleared fda spec home useUnknown Provider ResultStart: 53-50-6781Vudux iv surg pathology gross&microscopic examBo Uyen Tovar MD Work Phone: Start: 04-75-0760Brmqavyiyhw during operationBo Uyen Tovar MD Work Phone: Start: 12-06-2020 End: 98-35-6718Miidcmxtkdr posterior interbody lumbarBo Uyen Tovar MD Work Phone: Start: 13-59-3425Kdqa bld gluc mntr dev cleared fda spec home useUnknown Provider ResultStart: 94-24-8817Vobbs entir thrc lmbr crv sac spi w/skull 2/3 vwKelli Pittak CONTAINER REPAIRER - MOBILE SOLUTIONS ARCHITECT Work Phone: Start: 40-80-0819Tmnb bld gluc mntr dev cleared fda spec home useUnknown Provider ResultStart: 68-81-2075Gpex bld gluc mntr dev cleared fda spec home useUnknown Provider ResultStart: 93-34-3516Fekf bld gluc mntr dev cleared fda spec home useUnknown Provider ResultStart: 90-62-3315Vjev bld gluc mntr dev cleared fda spec home useUnknown Provider ResultStart: 26-93-5184Upme bld gluc mntr dev cleared fda spec home useUnknown Provider ResultStart: 15-50-6434Orwq bld gluc mntr dev cleared fda spec home useUnknown Provider ResultStart: 15-35-2328Vfuv bld gluc mntr dev cleared fda spec home use Unknown Provider ResultStart: 30-38-5936Intw bld gluc mntr dev cleared fda spec home useUnknown Provider ResultStart: 05-59-1704Gvcc bld gluc mntr dev cleared fda spec home useUnknown Provider ResultStart: 82-26-6340Nmmi bld gluc mntr dev cleared fda spec home useUnknown Provider ResultStart: 75-79-1739Ysmf bld gluc mntr dev cleared fda spec home useUnknown Provider ResultStart: 32-68-7653Skli bld gluc mntr dev cleared fda spec home useUnknown Provider ResultStart: 30-14-6648Lxnm bld gluc mntr dev cleared fda spec home useUnknown Provider ResultStart: 28-72-2868Yiupb spine lumbosacral 2/3 viewsBo Sade. Guy NIETO Work Phone: Start: 41-41-3682Hgwh bld gluc mntr dev cleared fda spec home useUnknown Provider ResultStart: 21-92-1839Wkga bld gluc mntr dev cleared fda spec home useUnknown Provider ResultStart: 39-51-1675FLYTW METABOLIC PANEL W/ REFLEX TO MG FOR LOW KBo H. Guy NIETO Work Phone: Start: 45-89-2415Pbleb count complete auto&auto difrntl wbcBo H. Guy NIETO Work Phone: Start: 01-67-8606Esjd bld gluc mntr dev cleared fda spec home useUnknown Provider ResultStart: 91-17-7507Kmuj bld gluc mntr dev cleared fda spec home useUnknown Provider ResultStart: 50-86-4466VTKRZ METABOLIC PANEL W/ REFLEX TO MG FOR LOW KBo H. Guy NIETO Work Phone: Start: 74-77-6710Vayfn count complete automatedBo Uyen Tovar MD Work Phone: Start: 17-67-2806Grlxc iv surg pathology gross&microscopic examBo H. Guy MD Work Phone: Start: 50-75-0834WTWRGC FOR SURGICAL PROCEDURESHernandez Tovar MD Work Phone: Start: 19-71-9329Zdnxszun screenHernandez Tovar MD Work Phone: Start: 06-04-2019 End: 97-27-0407Yyvdjlvpiwt posterior interbody lumbarBo Uyen Tovar MD Work Phone: Start: 27-30-8771Nbxlh typing serologic aboClaudia K Lee CONTAINER REPAIRER - MOBILE SOLUTIONS ARCHITECT Work Phone: Start: 06-04-2019 End: 46-73-0263Jpkye metabolic panel calcium totalClaudia K Lee CONTAINER REPAIRER - MOBILE SOLUTIONS ARCHITECT Work Phone: Excision of left kidneyAurora Orzech History of lumbar fusionAurora Orzech Plan of Treatment DateCare ActivityDetailAuthorStart: 66-94-3442Pofgwacfftgh 65+ years Vaccine (2 of 2 - PPSV23)Pneumococcal 65+ years Vaccine (2 of 2 - PPSV23)[facility]art: 38-39-3364Uxpultmasior 65+ years Vaccine (3 - PPSV23 or PCV20)Pneumococcal 65+ years Vaccine (3 - PPSV23 or PCV20)[facility] Hospitalart: 09-72-8016Jbyqcmqvtn measurementCreatinine monitoringKettering Health SpringfieldStart: 46-63-6967Lzysjtfwb monitoringPotassium monitoringKettering Health SpringfieldStart: 70-42-6041Eyiugisqtq measurementCreatinine monitoringK[facility]tering Health SpringfieldStart: 01-71-3850Lbmweyevye A1c dnhwplmpcwxQ4Y test (Diabetic or Prediabetic)[facility]: 08-02-2022 Potassium monitoringPotassium monitoringK[facility]tering Health SpringfieldStart: 02-40-3396Zflfhdzen vaccinationFlu vaccine (#1)ALEYDA [facility]ICK[facility]ITALStart: 45-09-8162Cjfrdyxxty measurementCreatinine monitoringK[facility]tering Health Springfield Work Phone: start: 28-95-3487Szvlurjic monitoringPotassium monitoringMercy Health Work Phone: start: 42-05-9416Qfgmfrtxer measurementCreatinine monitoringMercy Health Work Phone: start: 85-85-4933Fvtfznkggz ScreenDepression Screen [facility] SpringfieldStart: 32-41-3933Rqvkvzcox monitoringPotassium monitoringMercy Health Work Phone: start: 09-05-2021 End: 10-74-6078Octddlaaq to same day surgery pfprkx4409/05/2021 Surgery IP Unit Zenia Molina MD [address] [facility] [place] [place] [id number] SHOULDER TOTAL ARTHROPLASTY REVERSEMTHZ ORComment on above: SHOULDER TOTAL ARTHROPLASTY REVERSEStart: 09-05-2021 End: 19-18-8063Cvgfixluwdkt glenohumeral joint total shoulderSHOULDER TOTAL ARTHROPLASTY REVERSE ROTATOR CUFF ARTHROPATHY, LEFT SHOULDER 09/05/2021 9:25 AM [facility]Start: 23-67-4394Vikuyoalty hospital visit by iazcqwyga59/12/2022 Hospital Encounter IP Unit Zenia Molina MD [address] [place] [address] MTHZ ORStart: 08-22-2021 End: 79-31-6721Orcnwmimj to same day surgery gjzslv2408/22/2021 Surgery IP Unit Zenia Molina MD [address] [place] [address] SHOULDER TOTAL ARTHROPLASTY REVERSEMTHZ ORComment on above: SHOULDER TOTAL ARTHROPLASTY REVERSEStart: 08-22-2021 End: 90-09-5653Ljzamlpivdza glenohumeral joint total shoulderSHOULDER TOTAL ARTHROPLASTY REVERSE ROTATOR CUFF REPAIR 08/22/2021 11:30 AM [facility]St[facility] HospitalStart: 14-36-2623Itlhaqcblh hospital visit by cdeisaroq61/29/2022 Hospital Encounter IP Unit Zenia Molina MD [address] [place] [address] [facility] ORStart: 58-57-5716LMQEA-19 Vaccine (3 - Booster for Pfizer series)COVID-19 Vaccine (3 - Booster for Pfizer series) [facility] SpringfieldStart: 79-29-0705Jkyjsmwgb vaccinationFlu vaccine (#1)[facility] Work Phone: start: 12-23-2020 End: 68-92-5420Sndojdp encounter krbhokaie35/30/2021 Office Visit Neurosurgery Hernandez Tovar MD [address] [address] [phone] [facility] NeurosurgeryStart: 12-16-2020 End: 57-35-9082Qkivzss encounter dflknaxdh88/23/2021 Office Visit Neurosurgery Hernandez Tovar MD [address] [address] [phone] [facility] NeurosurgeryStart: 12-01-2020 End: 97-32-6350Pgcvkzaeo to same day surgery xikkle7312/01/2020 Surgery IP Unit Hernandez Tovar MD [address] [address] [phone] L 4-5 PLIF (POSTERIOR LUMBAR INTERBODY FUSION) INFUSE 2 HOURS/ 1 C-ARM/ MAX TABLE/ SSEP/ CELL SAVERS/ NUVASIVE (PAT [facility]) DR. TOVAR TO START AT 9:00 AMMLOZ ORComment on above:L 4-5 PLIF (POSTERIOR LUMBAR INTERBODY FUSION) INFUSE 2 HOURS/ 1 C-ARM/ MAX TABLE/ SSEP/ CELL SA VERS/ NUVASIVE (PAT [facility]) DR. TOVAR TO START AT 9:00 AMStart: 43-75-1046Rjpckrwxfs hospital visit by ayjxutotk87/12/2020 Hospital Encounter IP Unit Hernandez Tovar MD [address] [facility] [address] [place], [place] [address] PHYLLIS ORStart: 80-73-7193Nrytxe Wellness Visit (AWV)Annual Wellness Visit (AWV)[employer] Phone: start: 08-41-9319Qprgmwqalm monitoringCreatinine monitoringMer[employer]ing Work Phone: start: 20-13-0424Pysfudird monitoringPotassium monitoringMer[employer] Work Phone: start: 24-20-5101Ukqbevrgi aortic aneurysm screening AAA screenSamaritan North Health CenterRSP ToolingStart: 82-47-7257Renybrxygfrn 65+ years Vaccine (1 of 1 - PPSV23)Pneumococcal 65+ years Vaccine (1 of 1 - PPSV23)[employer] Phone: start: 70-94-0624Xlimtfgrmjxc 65+ years Vaccine (2 of 2 - PPSV23)Pneumococcal 65+ years Vaccine (2 of 2 - PPSV23)[employer] Phone: start: 06-19-2019 End: 00-08-2032Rbaaxcv encounter fkyzbtlnx24/24/2020 Office Visit Neurosurgery Hernandez Tovar MD [address] [place], [place] [address] [employer]Start: 21-97-1348Vyjvywehd vaccinationFlu vaccine (#1)[employer] Phone: start: 81-17-0662Fppcpcir Vaccine (2 of 3)Shingles Vaccine (2 of 3)VONTRAVELStart: 72-31-9397Wwwiz cancer screen colonoscopy Colon cancer screen colonoscopyDiligent Board Member Services Phone: start: 48-06-8553Gophjazxc for malignant neoplasm of colonColon cancer screen colonoscopySamaritan North Health CenterPRX Phone: start: 39-90-6124Pxxsidme Vaccine (1 of 2)Shingles Vaccine (1 of 2)[employer] Phone: start: 41-87-2122Btzrctelg for malignant neoplasm of colonKettering Health SpringfieldStart: 18-63-0099Auzszjyt screenDiabetes screenSamaritan North Health CenterPRX Phone: start: 02-22-7093Vyvck screenLipid screenSamaritan North Health CenterPRX Phone: start: 88-18-8339Fuskbftu specific antigen measurement Prostate Specific Antigen (PSA) Screening or MonitoringBON SECOURS RICHMOND COMMUNITY HOSPITALScrip Products Start: 77-21-1142TIeR/Tdap/Td vaccine (1 - Tdap)DTaP/Tdap/Td vaccine (1 - Tdap) [facility] CenterCanadian Digital Media NetworkStart: 19-63-4234Inmfnpnv microalbuminuria testDiabetic microalbuminuria testSamaritan North Health CenterPRX Phone: start: 75-53-8917Xjzzszbk retinal examDiabetic retinal examSamaritan North Health CenterRSP ToolingStart: 27-71-5395Rbgvocirn C screeningHepatitis C [facility] HospitalScrip ProductsStart: 40-96-1763Edozd screening for proteinDiabetic microalbuminuria testSamaritan North Health CenterRSP ToolingStart: 55-35-5319PGK screenHIV screenSamaritan North Health CenterPRX Phone: start: 99-96-0425TJW screeningHIV [facility] HospitalPRX Phone: start: 79-85-1737KAHWG-19 Vaccine (1)COVID-19 Vaccine (1)[facility] CenterViedea Phone: start: 59-03-3318UQwK/Tdap/Td vaccine (1 - Tdap) DTaP/Tdap/Td vaccine (1 - Tdap)[employer] Phone: start: 83-01-9690Rbtnprpp foot examinationDiabetic foot examSamaritan North Health CenterRSP ToolingStart: 13-97-3566Ghmshlyv retinal examDiabetic retinal exam [facility] CenterViedea Phone: start: 02-29-6919Ekerumbcij A1c jykwgnswbnkC5Y test (Diabetic or Prediabetic)[employer] Phone: start: 59-61-3334Adwfz panelSamaritan North Health CenterRSP ToolingStart: 00-44-3924Gbycfm Wellness Visit (AWV)Annual Wellness Visit (AWV)ALEYDA DRE [facility] HOSPITALScrip ProductsStart: 42-46-4784Wbulsureq C screenHepatitis C [facility] HospitalPRX Phone: start: 13-38-7829Hpxbcugxq C screeningHepatitis C [facility] HospitalRSP ToolingContinuous pulse oximetryPulse oximetry, continuous Respiratory Care Routine Every 4hr until discontinued starting 12/06/2020[facility] CenterPRX Phone: comobdg on above:Every 4hr until discontinued starting 12/06/2020Glucose [Mass/volume] in Serum or PlasmaSamaritan North Health CenterPRX Phone: comment on above:4X Daily (AC & HS) until discontinued starting 12/06/2020s Needed until discontinued starting 12/06/2020 End: 81-97-2674Iymvqne [Mass/volume] in Serum or PlasmaPOCT Glucose Point of Care Testing STAT One Time for 1 Occurrences starting 08/22/2021 until 022[facility] CenterRSP ToolingWashington University Medical Centerment on above:One Time for 1 Occurrences starting 08/22/2021 until 08/22/2021Glucose [Mass/volume] in Serum or PlasmaPOCT Glucose Point of Care Testing STAT As Needed until discontinued starting 09/05/2021[facility] CenterPRX Phone: comhoka on above:As Needed until discontinued starting 09/05/2021Glucose [Mass/volume] in Serum or PlasmaSamaritan North Health CenterPRX Phone: comxrir on above:4X Daily (AC & HS) until discontinued starting 09/05/2021s Needed until discontinued starting 09/05/2021Incentive spirometryIncentive spirometry Respiratory Care Routine Every 2hr while awake until discontinued starting 06/04/2019[facility] CenterPRX Phone: comdahs on above:Every 2hr while awake until discontinued starting 06/04/2019Initiate Oxygen Therapy ProtocolInitiate Oxygen Therapy Protocol Respiratory Care Routine Daily until discontinued starting 06/04/2019[facility] [employer] Phone: comment on above:Daily until discontinued starting 06/04/2019Oxygen therapy [Minimum Data Set]Initiate Oxygen Therapy Protocol Respiratory Care Routine Daily until discontinued starting 12/06/2020[facility] CenterPRX Phone: comment on above:Daily until discontinued starting 12/06/2020Oxygen therapy [Minimum Data Set]Initiate Oxygen Therapy Protocol Respiratory Care Routine Daily until discontinued starting 09/05/2021[facility] CenterPRX Phone: comment on above:Daily until discontinued starting 2Pulse oximetry, continuousPulse oximetry, continuous Respiratory Care Routine Every 4hr until discontinued starting 06/04/2019[facility] [employer] Phone: comment on above:Every 4hr until discontinued starting 06/04/2019Spirometry panelIncentive spirometry Respiratory Care Routine Every 2hr while awake until discontinued starting 12/06/2020[facility] CenterPRX Phone: comment on above:Every 2hr while awake until discontinued starting 12/06/2020urgical PathologySamaritan North Health CenterPRX Phone: comment on above:Release Upon Ordering for 1 Occurrences starting 12/06/2020ONE TIME for 1 Occurrences starting 06/04/2019 Immunizations Immunization DateImmunizationNotesCare PxlwfaoxOmlgyuqs74-50-4336DEK vaccine, preF A-preF B, recombinantAurora Orzech [facility]09-25-2025influenza virus vaccine, unspecified formulationAurora Orzech [facility]09-06-2023influenza virus vaccine, unspecified formulationAurora Orzech [facility]ue06-07-2023tetanus toxoid, reduced diphtheria toxoid, and acellular pertussis vaccine, adsorbedAurora Orzech [facility] [place] 084891-16-2022zoster vaccine recombinantAurora Orzech [facility] [place] 084890-22-2022influenza virus vaccine, unspecified formulationAurora Orzech [facility] Centerue05-19-2022zoster vaccine recombinantAurora Orzech [facility]03-04-2022pneumococcal polysaccharide vaccine, 23 valentAurora Orzech [facility] [place] 084891-19-2021pneumococcal conjugate vaccine, 13 valentAurora Orzech [facility]09-24-2021influenza virus vaccine, unspecified formulationAurora Orzech [facility]06-21-2021COVID-19, Pfizer, PF, 30mcg/0.3mLBo Guy NIETO Work Phone: [facility] [employer] Work Phone: [phone]) [phone]MP-68, Pfizer, PF, 30mcg/0.3mLBo Guy NIETO Work Phone: [facility] SpringfieldAdhyhq16-15-3163pgewzpcrr virus vaccine, unspecified formulationAurora Orzech [facility]10-14-2019influenza virus vaccine, unspecified formulationAurora Orzech [facility]10-14-2019pneumococcal polysaccharide vaccine, 23 valentAurora Orzech [facility]10-25-2017influenza virus vaccine, unspecified formulationAurora Orzech [facility]10-25-2017pneumococcal conjugate vaccine, 13 valentAurora Orzech [facility]10-03-2016zoster vaccine, liveAurora Orzech [facility] Payers DatePayer CategoryPayerPolicy [id number] [id number] Health Insurance [id number] 2023 [id number] of Defense ( and others)2023Medicare [id number] of Defense ( and others)[id number] 2019MedicareMEDICARE MEDICARE PART A AND B xxxxxxxxxxx 2018-Present [phone] [address], [place]xpbktiqhbtk .[id number]511.74310-24-5670Jwsciinjas of Defense ( and others)[facility] xxxxxxxxx 2017-Presentxxxxxxxxx .[id number] [id number] 1960 Department of Defense ( and others)[id number] 1.2.840.733024.1.13.239.2.7.3.164074.315 [id number] 1.2.840.515872.1.13.239.2.7.3.978835.315 [id number] 1955 [id number] 2.16840.1.184199.3.57[id number] 2.16840.1.208212.3.579.2.[id number] 2.16840.1.616071.3.579.2.51915-23-4887Eohtthe55833901 2.16840.1.100258.3.579.2.70498-68-7281Ijwiazw04860049 2.840.1.693189.3.579.2.50654-21-7170Uhabwdg74368713 2.16840.1.237143.3.579.2.79926-89-7722Cggknbd35800155 2.16.840.1.205417.3.579.2.53568-17-7151Zktfnmq52796299 2.840.1.661039.3.579.2.71742-96-3284Hozouxq7981042 2.16.840.1.230796.3.579.2.70778-81-2860Ykwzunq8506097 2.16.840.1.744250.3.579.2.92032-59-9650Pjfcmvl2974435 2.16.840.1.330123.3.579.2.64984-67-8579Rcivmqd7286565 2.16840.1.456147.3.579.2.41992-98-1442Innzelw1157967 2.16.840.1.605693.3.579.2.01364-51-1443Ogdnwyj8609140 2.16.840.1.111817.3.579.2.35590-80-8128Jhpsrzf5522583 2.16.840.1.012077.3.579.2.55228-50-7397Whyfvzy9454239 2.16.840.1.107975.3.579.2.85864-14-9072Fvbajzs9944263 2.16.840.1.344021.3.579.2.68193-06-3305Qjfrfbv2170979 2.16.840.1.700719.3.579.2.17347-71-1455Zmbfuqf2831768 2.16840.1.325861.3.579.2.42564-01-5941Jpnjgxv7510850 2.16.840.1.444805.3.579.2.59476-82-9189Fnjwzyz0810653 2.16.840.1.746396.3.579.2.44644-83-1148Cakqppd6735325 2.16.840.1.698083.3.579.2.70067-66-6933Bmfcclg3849366 2.16.840.1.110869.3.579.2.00574-33-6375Rmnjltn5856931 2.16.840.1.699306.3.579.2.83436-00-7699Mkwemgx352737842 2.16.840.1.376617.3.579.2.45923-55-6839Fsoaljm649924869 2.16.840.1.675036.3.579.2.16969-47-6209Smxyfyl715093773 2.16.840.1.236945.3.579.2.178269-85-6870Jngyogu91883944 2.0.1.117726.3.579.2.76753-65-3263Obhovcw91461161 2.0.1.457998.3.579.2.38908-28-5950Kumigra36735907 2.0.1.858680.3.579.2.22486-45-9150Omlwmzf23561389 2.0.1.284556.3.579.2.58578-61-2696Qpetrry33680228 2.0.1.127712.3.5[id number] 2..1.950920.3.579.2.531 Social History DateTypeDetailFacilityStart: 11-25-2020 End: 46-94-9989Hdarcgo smoking status NHISFormer smokerUc West Chester Hospital [facility] End: 36-80-1205Rqizzto of tobacco useCurrent smokerUc West [facility] Hospital Polyplus-transfectionStart: 11-25-2020 End: 23-82-7405Pdcrfsu use and exposureNever usedUc West Chester Hospital Polyplus-transfectionStart: 11-25-2020 End: 76-90-3938Ctbapdt intakeEx-drinker (finding)[facility] [employer] Work Phone: start: 43-47-9805Yfmkzjd SDOH Zlzbvmcom7Kadeq [employer] Phone: start: 44-64-2721Jqjisdo SDOH Food Hswdq8Cjbxr [employer] Phone: start: 48-06-5576Kkq Assigned At BirthNot on [facility] HamiltonPRX Phone: start: 08-12-2021 End: 36-18-9629Omwmhvfo to SARS-CoV-2 (event)Not sureUc West Chester Hospital HealthStart: 30-83-3853Ctxtpog smoking status NHISNever smoked tobaccoMercy HealthSex Assigned At [facility]woodstart: 53-10-0461Tnn Assigned At [facility] HospitalTobacco smoking statusExec[facility] Curtis Tobacco smoking statusNeverExecutive [facility] of [facility] HospitalexMale (finding)[facility] Medical Equipment Procedure CodeEquipment CodeEquipment Original TextEquipment IdentifierDates Graft Canc Chip 1.2qp79dr 15cc - [id number]: 95-67-5856Xsl- Cellular Bone Matrix 5cc - [id number]: 84-85-9861Zpvie Polyaxial Reline-O 2s 6.5x55mm573583_impStart: 24-04-1530Vmwyx Lk Reline Opn Tulip 5.5mm 573584_impStart: 68-28-2437Dnqw Cage Spine Mas 28 Mm Skkijjbtl140346_vgpPrgwl: 79-79-5182Omun Spine Jose Armando Reline-O 5.5x75mm573652_impStart: 12-81-1704Uwa Fix Reline 0x Conn 40 50mm 5.5lp [id number]_eslJzbhz: 83-23-1847Wobhn O Reline 60x50mm865571_impStart: 27-52-6654Ays Bne Grft M Rhbmp-2 4.2mg Inj 5ml Contain Ndl 20ga865414_impStart: 62-70-4194Swgc Spnl Lordtc 89p52k21 Mm Crv Coalesce 865558_impStart: 97-49-7387Jboau Bne Sub 30cc 1.7-10mm Canc Chip Morselized Frz Dry - [id number]: 77-77-8351Uyjca Spnl L55mm Dia6.5mm Post Thoracolumbosacral Polyax 2s865572_impStart: 08-72-0938Zmmaq Spnl Dia5.5mm Opn Tulip Sg Odwiwo417266_encTtrrg: 65-21-3032Oac Spnl Lordtc 5.5x90 Mm Ti Reline-O 865620_impStart: 70-21-4925Ctwabwqqr Spnl Crss Lo Prof Adj Reline-O 5.5 X 45-65 [id number]_xclTlbda: 03-62-7644Fzayr Bne Sub 30cc 1.7-10mm Canc Chip Morselized Frz Dry - [id number]: 75-41-2613Sajvpxvvk Duc Jms94io +3mm Lat Offset Augmented Aequalis - [id number]_gnzLqjli: 31-00-0920Vwuab Bone L35mm Dia6.5mm Ti St Full Thrd Ctrl For Duc - [id number]: 58-15-0242Iysoe Bone L30mm Dia5mm Ti St Full Thrd Periph For Duc - [id number]: 25-87-9845Uwiop Bne Periph 5x38 Mm Shldr Reversed Ns Aequalis Perform - [id number]: 25-53-0545Bsyjxv Duc Rut87pl +3mm Lat Offset Reversed Aequalis - [id number]: 83-38-0113Hbppsm Shldr C Pbq00ds Thk+6mm 7.5deg Reversed Aequalis - [id number]: 59-89-3608Rqct Hum Thk+0mm 0mm Offset Cntr Reversed Aequalis Ascend - [id number]_impStart: 35-23-4159Ibwchp Shldr C Zcb65hp Thk+6mm 7.5deg Reversed Aequalis - [id number]: 39-41-0380Uelq Hum L74mm Dia3b 132.5deg Std Shldr Ptc Aequalis Ascend - [id number]: 09-05-2021 Functional Status [id number] StatusN/A[facility] [id number] StatusN/A[facility] [id number] StatusN/A [facility] Clinical Notes 06-04-2019 to 01-18-2025 Note Date & [id number] Hospital Discharge instructions Patient Education 01/18/2025 14:57:27 Overactive Bladder, Adult Overactive Bladder, Adult Overactive bladder is a condition in which a person has a sudden and frequent need to urinate. A person might also leak urine if he or she cannot get to the bathroom fast enough (urinary incontinence). Sometimes, symptoms can interfere with work or social activities. What are the causes? Overactive bladder is associated with poor nerve signals between your bladder and your brain. Your bladder may get the signal to empty before it is full. You may also have very sensitive muscles thatmake your bladder squeeze too soon. This condition may also be caused by other factors, such as: Medical conditions: ?Urinary tract infection. ?Infection of nearby tissues. ?Prostate enlargement. ?Bladder stones, inflammation, or tumors. ?Diabetes. ?Muscle or nerve weakness, especially from these conditions: ?A spinal cord injury. ?Stroke. ?Multiple sclerosis. ?Parkinson's disease. Other causes: ?Surgery on the uterus or urethra. ?Drinking too much caffeine or alcohol. ?Certain medicines, especially those that eliminate extra fluid in the body (diuretics). ?Constipation. What increases the risk? You may be at greater risk for overactive bladder if you: Are an older adult. Smoke. Are going through menopause. Have prostate problems. Have a neurological disease, such as stroke, dementia, Parkinson's disease, or multiple sclerosis (MS). Eat or drink alcohol, spicy food, caffeine, and other things that irritate the bladder. Are overweight or obese. What are the signs or symptoms? Symptoms of this condition include a sudden, strong urge to urinate. Other symptoms include: Leaking urine. Urinating 8 or more times a day. Waking up to urinate 2 or more times overnight. How is this diagnosed? This condition may be diagnosed based on: Your symptoms and medical history. A physical exam. Blood or urine tests to check for possible causes, such as infection. You may also need to see a health care provider who specializes in urinary tract problems. This is called a urologist. How is this treated? Treatment for overactive bladder depends on the cause of your condition and whether it is mild or severe. Treatment may include: Bladder training, such as: ?Learning to control the urge to urinate by following a schedule to urinate at regular intervals. ?Doing Kegel exercises to strengthen the pelvic floor muscles that support your bladder. Special devices, such as: ?Biofeedback. This uses sensors to help you become aware of your body's signals. ?Electrical stimulation. This uses electrodes placed inside the body (implanted) or outside the body. These electrodes send gentle pulses of electricity to strengthen the nerves or muscles that control the bladder. ?Women may use a plastic device, called a pessary, that fits into the vagina and supports the bladder. Medicines, such as: ?Antibiotics to treat bladder infection. ?Antispasmodics to stop the bladder from releasing urine at the wrong time. ?Tricyclic antidepressants to relax bladder muscles. ?Injections of botulinum toxin type A directly into the bladder tissue to relax bladder muscles. Surgery, such as: ?A device may be implanted to help manage the nerve signals that control urination. ?An electrode may be implanted to stimulate electrical signals in the bladder. ?A procedure may be done to change the shape of the bladder. This is done only in very severe cases. Follow these instructions at home: Eating and drinking Make diet or lifestyle changes recommended by your health care provider. These may include: ?Drinking fluids throughout the day and not only with meals. ?Cutting down on caffeine or alcohol. ?Eating a healthy and balanced diet to prevent constipation. This may include: ?Choosing foods that are high in fiber, such as beans, whole grains, and fresh fruits and vegetables. ?Limiting foods that are high in fat and processed sugars, such as fried and sweet foods. Lifestyle Lose weight if needed. Do not use any products that contain nicotine or tobacco. These include cigarettes, chewing tobacco, and vaping devices, such as e-cigarettes. If you need help quitting, ask your health care provider. General instructions Take wxxs-tmr-eryycpb and prescription medicines only as told by your health care provider. If you were prescribed an antibiotic medicine, take it as told by your health care provider. Do notstop taking the antibiotic even if you start to feel better. Use any implants or pessary as told by your health care provider. If needed, wear pads to absorb urine leakage. Keep a log to track how much and when you drink, and when you need to urinate. This will help your health care provider monitor your condition. Keep all follow-up visits. This is important. Contact a health care provider if: You have a fever or chills. Your symptoms do not get better with treatment. Your pain and discomfort get worse. You have more frequent urges to urinate. Get help right away if: You are not able to control your bladder. Summary Overactive bladder refers to a condition in which a person has a sudden and frequent need to urinate. Several conditions may lead to an overactive bladder. Treatment for overactive bladder depends on the cause and severity of your condition. Making lifestyle changes, doing Kegel exercises, keeping a log, and taking medicines can help with this condition. This information is not intended to replace advice given to you by your health care provider. Make sure you discuss any questions you have with your health care provider. Document Revised: 01/30/2021 Document Reviewed: 01/30/2021 [employer] Patient Education 2023 [employer]. 01/18/2025 14:57:12 Benign Prostatic Hyperplasia Benign Prostatic Hyperplasia Benign prostatic hyperplasia (BPH) is an enlarged prostate gland that is caused by the normal agingprocess. The prostate may get bigger as a man gets older. The condition is not caused by cancer. The prostate is a walnut-sized gland that is involved in the production of semen. It is located in front of the rectum and below the bladder. The bladder stores urine. The urethra carries stored urine ou t of the body. An enlarged prostate can press on the urethra. This can make it harder to pass urine. The buildup of urine in the bladder can cause infection. Back pressure and infection may progress to bladder damage and kidney (renal) failure. What are the causes? This condition is part of the normal aging process. However, not all men develop problems from thiscondition. If the prostate enlarges away from the [...] urethra. Follow these instructions at home: Take xhya-vjr-vvzfhlk and prescription medicines only as told by [...] provider. Document Revised: 11/29/2021 Document Reviewed: 11/29/2021 [employer] Patient Education 2023 [employer]. Follow Up Care 12/28/2024 12:05:10 With:JERONIMO Benoit APRN, MARA Bustamante, URL Address: When: Unknown Comments:3 mos PVR [facility] 08-25-2025 NotePatient Education Obstetrics and Gynecology Overactive Bladder, Adult Overactive bladder is a condition in which a person has a sudden and frequent need to urinate. A person might also leak urine if he or she cannot get to the bathroom fast enough (urinary incontinence). Sometimes, symptoms can interfere with work or social activities. What are the causes? Overactive bladder is associated with poor nerve signals between your bladder and your brain. Your bladder may get the signal to empty before it is full. You may also have very sensitive muscles thatmake your bladder squeeze too soon. This condition may also be caused by other factors, such as: ??? Medical conditions: ? Urinary tract infection. ? Infection of nearby tissues. ? Prostate enlargement. ? Bladder stones, inflammation, or tumors. ? Diabetes. ? Muscle or nerve weakness, especially from these conditions: ? A spinal cord injury. ? Stroke. ? Multiple sclerosis. ? Parkinson's disease. ??? Other causes: ? Surgery on the uterus or urethra. ? Drinking too much caffeine or alcohol. ? Certain medicines, especially those that eliminate extra fluid in the body (diuretics). ? Constipation. What increases the risk? You may be at greater risk for overactive bladder if you: ??? Are an older adult. ??? Smoke. ??? Are going through menopause. ??? Have prostate problems. ??? Have a neurological disease, such as stroke, dementia, Parkinson's disease, or multiple sclerosis (MS). ??? Eat or drink alcohol, spicy food, caffeine, and other things that irritate the bladder. ??? Are overweight or obese. What are the signs or symptoms? Symptoms of this condition include a sudden, strong urge to urinate. Other symptoms include: ??? Leaking urine. ??? Urinating 8 or more times a day. ??? Waking up to urinate 2 or more times overnight. How is this diagnosed? This condition may be diagnosed based on: ??? Your symptoms and medical history. ??? A physical exam. ??? Blood or urine tests to check for possible causes, such as infection. You may also need to see a health care provider who specializes in urinary tract problems. This is called a urologist. How is this treated? Treatment for overactive bladder depends on the cause of your condition and whether it is mild or severe. Treatment may include: ??? Bladder training, such as: ? Learning to control the urge to urinate by following a schedule to urinate at regular intervals. ? Doing Kegel exercises to strengthen the pelvic floor muscles that support your bladder. ??? Special devices, such as: ? Biofeedback. This uses sensors to help you become aware of your body's signals. ? Electrical stimulation. This uses electrodes placed inside the body (implanted) or outside the body. These electrodes send gentle pulses of electricity to strengthen the nerves or muscles that control the bladder. ? Women may use a plastic device, called a pessary, that fits into the vagina and supports the bladder. ??? Medicines, such as: ? Antibiotics to treat bladder infection. ? Antispasmodics to stop the bladder from releasing urine at the wrong time. ? Tricyclic antidepressants to relax bladder muscles. ? Injections of botulinum toxin type A directly into the bladder tissue to relax bladder muscles. ??? Surgery, such as: ? A device may be implanted to help manage the nerve signals that control urination. ? An electrode may be implanted to stimulate electrical signals in the bladder. ? A procedure may be done to change the shape of the bladder. This is done only in very severe cases. Follow these instructions at home: Eating and drinking ??? Make diet or lifestyle changes recommended by your health care provider. These may include: ? Drinking fluids throughout the day and not only with meals. ? Cutting down on caffeine or alcohol. ? Eating a healthy and balanced diet to prevent constipation. This may include: ? Choosing foods that are high in fiber, such as beans, whole grains, and fresh fruits and vegetables. ? Limiting foods that are high in fat and processed sugars, such as fried and sweet foods. Lifestyle ??? Lose weight if needed. ??? Do not use any products that contain nicotine or tobacco. These include cigarettes, chewing tobacco, and vaping devices, such as e-cigarettes. If you need help quitting, ask your health care provider. General instructions ??? Take nzoe-kad-oeksrbv and prescription medicines only as told by your health care provider. ??? If you were prescribed an antibiotic medicine, take it as told by your health care provider. Donot stop taking the antibiotic even if you start to feel better. ??? Use any implants or pessary as told by your health care provider. ??? If needed, wear pads to absorb urine leakage. ??? Keep a log to track how much and when you drink, and whe (more content not included)...[facility]08-04-2025 Hospital Discharge instructions Patient Education 12/28/2024 12:22:28 Benign Prostatic Hyperplasia Benign Prostatic Hyperplasia Benign prostatic hyperplasia (BPH) is an enlarged prostate gland that is caused by the normal agingprocess. The prostate may get bigger as a man gets older. The condition is not caused by cancer. The prostate is a walnut-sized gland that is involved in the production of semen. It is located in front of the rectum and below the bladder. The bladder stores urine. The urethra carries stored urine ou t of the body. An enlarged prostate can press on the urethra. This can make it harder to pass urine. The buildup of urine in the bladder can cause infection. Back pressure and infection may progress to bladder damage and kidney (renal) failure. What are the causes? This condition is part of the normal aging process. However, not all men develop problems from thiscondition. If the prostate enlarges away from the [...] urethra. Follow these instructions at home: Take bctm-gei-eeiymfz and prescription medicines only as told by [...] provider. Document Revised: 11/29/2021 Document Reviewed: 11/29/2021 [employer] Patient Education 2023 [employer]. [facility] 08-04-2025 NotePatient Education Urology Benign Prostatic Hyperplasia Benign prostatic hyperplasia (BPH) is an enlarged prostate gland that is caused by the normal agingprocess. The prostate may get bigger as a man gets older. The condition is not caused by cancer. The prostate is a walnut-sized gland that is involved in the production of semen. It is located in front of the rectum and below the bladder. The bladder stores urine. The urethra carries stored urine ou t of the body. An enlarged prostate can press on the urethra. This can make it harder to pass urine. The buildup of urine in the bladder can cause infection. Back pressure and infection may progress to bladder damage and kidney (renal) failure. What are the causes? This condition is part of the normal aging process. However, not all men develop problems from thiscondition. If the prostate enlarges away from the urethra, urine flow will not be blocked. If it enlarges toward the urethra and compresses it, there will be problems passing urine. What increases the risk? This condition is more likely to develop in men older than 50 years. What are the signs or symptoms? Symptoms of this condition include: ??? Getting up often during the night to urinate. ??? Needing to urinate frequently during the day. ??? Difficulty starting urine flow. ??? Decrease in size and strength of your urine stream. ??? Leaking (dribbling) after urinating. ??? Inability to pass urine. This needs immediate treatment. ??? Inability to completely empty your bladder. ??? Pain when you pass urine. This is more common if there is also an infection. ??? Urinary tract infection (UTI). How is this diagnosed? This condition is diagnosed based on your medical history, a physical exam, and your symptoms. Tests will also be done, such as: ??? A post-void bladder scan. This measures any amount of urine that may remain in your bladder after you finish urinating. ??? A digital rectal exam. In a rectal exam, your health care provider checks your prostate by putting a lubricated, gloved finger into your rectum to feel the back of your prostate gland. This exam detects the size of your gland and any abnormal lumps or growths. ??? An exam of your urine (urinalysis). ??? A prostate specific antigen (PSA) screening. This is a blood test used to screen for prostate cancer. ??? An ultrasound. This test uses sound waves [...] severity of your condition. Treatment may include: ??? Observation and yearly exams. This may be the only treatment needed if your condition and symptoms are mild. ??? Medicines to relieve your symptoms, including: ? Medicines to shrink the prostate. ? Medicines to relax the muscle of the prostate. ??? Surgery in severe cases. Surgery may include: ? Prostatectomy. In this procedure, the prostate tissue is removed completely through an open incision or with a laparoscope or robotics. ? Transurethral resection of the prostate (TURP). In this procedure, a tool is inserted through theopening at the tip of the penis (urethra). It is used to cut away tissue of the inner core of the prostate. The pieces are removed through the same opening of the penis. This removes the blockage. ? Transurethral incision (TUIP). In this procedure, small cuts are made in the prostate. This lessens the prostate's pressure on the urethra. ? Transurethral microwave thermotherapy (TUMT). This procedure uses microwaves to create heat. The heat destroys and removes a small amount of prostate tissue. ? Transurethral needle ablation (TUNA). This procedure uses radio frequencies to destroy and removea small amount of prostate tissue. ? Interstitial laser coagulation (ILC). This procedure uses a laser to destroy and remove a small amount of prostate tissue. ? Transurethral electrovaporization (TUVP). This procedure uses electrodes to destroy and remove a small amount of prostate tissue. ? Prostatic urethral lift. This procedure inserts an implant to push the lobes of the prostate awayfrom the urethra. Follow these instructions at home: ??? Take kotq-bcn-hsjrpwu and prescription medicines only as told by your health care provider. ??? Monitor your symptoms for any changes. Contact your health care provider with any changes. ??? Avoid drinking large amounts of liquid before going to bed or out in public. ??? Avoid or reduce how much caffeine or alcohol you drink. ??? Give yourself time when you urinate. ??? Keep all follow-up visits. This is important. Contact a health care provider if: ??? You have unexplained back pain. ??? Your symptoms do not get (more content not included)...[facility]01-30-2025 Hospital Discharge instructions Patient Education 06/25/2024 12:49:53 Benign Prostatic Hyperplasia Benign Prostatic Hyperplasia Benign prostatic hyperplasia (BPH) is an enlarged prostate gland that is caused by the normal agingprocess. The prostate may get bigger as a man gets older. The condition is not caused by cancer. The prostate is a walnut-sized gland that is involved in the production of semen. It is located in front of the rectum and below the bladder. The bladder stores urine. The urethra carries stored urine ou t of the body. An enlarged prostate can press on the urethra. This can make it harder to pass urine. The buildup of urine in the bladder can cause infection. Back pressure and infection may progress to bladder damage and kidney (renal) failure. What are the causes? This condition is part of the normal aging process. However, not all men develop problems from thiscondition. If the prostate enlarges away from the [...] urethra. Follow these instructions at home: Take urze-sld-xcakpwg and prescription medicines only as told by [...] provider. Document Revised: 11/29/2021 Document Reviewed: 11/29/2021 [employer] Patient Education 2023 [employer]. Follow Up Care 06/02/2024 13:08:15 With:JERONIMO Benoit APRN, MARA Bustamante, URL Address: When: Unknown [facility] 01-30-2025 NotePatient Education Urology Benign Prostatic Hyperplasia Benign prostatic hyperplasia (BPH) is an enlarged prostate gland that is caused by the normal agingprocess. The prostate may get bigger as a man gets older. The condition is not caused by cancer. The prostate is a walnut-sized gland that is involved in the production of semen. It is located in front of the rectum and below the bladder. The bladder stores urine. The urethra carries stored urine ou t of the body. An enlarged prostate can press on the urethra. This can make it harder to pass urine. The buildup of urine in the bladder can cause infection. Back pressure and infection may progress to bladder damage and kidney (renal) failure. What are the causes? This condition is part of the normal aging process. However, not all men develop problems from thiscondition. If the prostate enlarges away from the urethra, urine flow will not be blocked. If it enlarges toward the urethra and compresses it, there will be problems passing urine. What increases the risk? This condition is more likely to develop in men older than 50 years. What are the signs or symptoms? Symptoms of this condition include: ??? Getting up often during the night to urinate. ??? Needing to urinate frequently during the day. ??? Difficulty starting urine flow. ??? Decrease in size and strength of your urine stream. ??? Leaking (dribbling) after urinating. ??? Inability to pass urine. This needs immediate treatment. ??? Inability to completely empty your bladder. ??? Pain when you pass urine. This is more common if there is also an infection. ??? Urinary tract infection (UTI). How is this diagnosed? This condition is diagnosed based on your medical history, a physical exam, and your symptoms. Tests will also be done, such as: ??? A post-void bladder scan. This measures any amount of urine that may remain in your bladder after you finish urinating. ??? A digital rectal exam. In a rectal exam, your health care provider checks your prostate by putting a lubricated, gloved finger into your rectum to feel the back of your prostate gland. This exam detects the size of your gland and any abnormal lumps or growths. ??? An exam of your urine (urinalysis). ??? A prostate specific antigen (PSA) screening. This is a blood test used to screen for prostate cancer. ??? An ultrasound. This test uses sound waves [...] severity of your condition. Treatment may include: ??? Observation and yearly exams. This may be the only treatment needed if your condition and symptoms are mild. ??? Medicines to relieve your symptoms, including: ? Medicines to shrink the prostate. ? Medicines to relax the muscle of the prostate. ??? Surgery in severe cases. Surgery may include: ? Prostatectomy. In this procedure, the prostate tissue is removed completely through an open incision or with a laparoscope or robotics. ? Transurethral resection of the prostate (TURP). In this procedure, a tool is inserted through theopening at the tip of the penis (urethra). It is used to cut away tissue of the inner core of the prostate. The pieces are removed through the same opening of the penis. This removes the blockage. ? Transurethral incision (TUIP). In this procedure, small cuts are made in the prostate. This lessens the prostate's pressure on the urethra. ? Transurethral microwave thermotherapy (TUMT). This procedure uses microwaves to create heat. The heat destroys and removes a small amount of prostate tissue. ? Transurethral needle ablation (TUNA). This procedure uses radio frequencies to destroy and removea small amount of prostate tissue. ? Interstitial laser coagulation (ILC). This procedure uses a laser to destroy and remove a small amount of prostate tissue. ? Transurethral electrovaporization (TUVP). This procedure uses electrodes to destroy and remove a small amount of prostate tissue. ? Prostatic urethral lift. This procedure inserts an implant to push the lobes of the prostate awayfrom the urethra. Follow these instructions at home: ??? Take rucz-amx-myfxwxx and prescription medicines only as told by your health care provider. ??? Monitor your symptoms for any changes. Contact your health care provider with any changes. ??? Avoid drinking large amounts of liquid before going to bed or out in public. ??? Avoid or reduce how much caffeine or alcohol you drink. ??? Give yourself time when you urinate. ??? Keep all follow-up visits. This is important. Contact a health care provider if: ??? You have unexplained back pain. ??? Your symptoms do not get (more content not included)...[facility]08-20-2024 Hospital Discharge instructions Patient Education 01/14/2024 11:11:51 [...] of the testicle and scrotum. Symptoms usually startsuddenly (acute epididymitis). Sometimes epididymitis starts gradually and [...] Follow these instructions at home: Medicines Take cksu-mqx-lxoxxqg and prescription medicines only as told by your health care provider. If you were prescribed an antibiotic medicine, take it as told by your health care provider. Do notstop taking the antibiotic even if your condition [...] Ask your health care provider if you shouldwear a scrotal support, such as a jockstrap. [...] provider. Document Revised: 12/20/2021 Document Reviewed: 12/20/2021 [employer] Patient Education 2022 En[employer]. 01/14/2024 11:11:47 Benign Prostatic Hyperplasia Benign Prostatic Hyperplasia Benign prostatic hyperplasia (BPH) is an enlarged prostate gland that is caused by the normal agingprocess. The prostate may get bigger as a man gets older. The condition is not caused by cancer. The prostate is a walnut-sized gland that is involved in the production of semen. It is located in front of the rectum and below the bladder. The bladder stores urine. The urethra carries stored urine ou t of the body. An enlarged prostate can press on the urethra. This can make it harder to pass urine. The buildup of urine in the bladder can cause infection. Back pressure and infection may progress to bladder damage and kidney (renal) failure. What are the causes? This condition is part of the normal aging process. However, not all men develop problems from thiscondition. If the prostate enlarges away from the [...] urethra. Follow these instructions at home: Take krgz-mrg-enkessi and prescription medicines only as told by [...] provider. Document Revised: 11/29/2021 Document Reviewed: 11/29/2021 [employer] Patient Education 2022 [employer]. 01/14/2024 11:11:46 Prostate Cancer Screening Prostate Cancer Screening Prostate cancer screening is testing that is done to check for the presence of prostate cancer in men. The prostate gland is a walnut-sized gland that is located below the bladder and in front of therectum in males. The function of the prostate is to add fluid to semen during ejaculation. Prostatecancer is one of the most common types of cancer in men. Who should have prostate cancer screening? Screening recommendations vary based on age and other risk factors, as well as between the professional organizations who make the recommendations. In general, screening is recommended if: You are age 50 to 70 and have an average risk for prostate cancer. You should talk with your healthcare provider about your need for screening and [...] diagnosed with prostate cancer. The risk is higherif your family member's cancer occurred at an early age or if you have multiple family members withprostate cancer at an early age. ?Being a [...] is a blood test called the prostate-specific antigen(PSA) test. PSA is a protein that is [...] treatment? Where to find more information The [employer] Society: www.cancer.org [employer] Urological Association: www.auanet.org Contact a health care [...] the recommended screening test for prostate cancer, butit has associated risks. Discuss the risks and [...] provider. Document Revised: 11/06/2021 Document Reviewed: 11/06/2021 [employer] Patient Education 2022 [employer]. Follow Up Care 11/21/2023 15:51:01 With:JERONIMO Benoit APRN, Usha Bolton, MARA, URL Address: When: Unknown Comments:F/up in 4-6 mos with PSA [facility] Hospital Discharge instructions Patient Education 11/21/2023 16:24:10 [...] of the testicle and scrotum. Symptoms usually startsuddenly (acute epididymitis). Sometimes epididymitis starts gradually and [...] Follow these instructions at home: Medicines Take shhc-qbk-oslvphq and prescription medicines only as told by your health care provider. If you were prescribed an antibiotic medicine, take it as told by your health care provider. Do notstop taking the antibiotic even if your condition [...] Ask your health care provider if you shouldwear a scrotal support, such as a jockstrap. [...] provider. Document Revised: 12/20/2021 Document Reviewed: 12/20/2021 [employer] Patient Education 2022 [employer]. 11/21/2023 16:24:08 Benign Prostatic Hyperplasia Benign Prostatic Hyperplasia Benign prostatic hyperplasia (BPH) is an enlarged prostate gland that is caused by the normal agingprocess. The prostate may get bigger as a man gets older. The condition is not caused by cancer. The prostate is a walnut-sized gland that is involved in the production of semen. It is located in front of the rectum and below the bladder. The bladder stores urine. The urethra carries stored urine ou t of the body. An enlarged prostate can press on the urethra. This can make it harder to pass urine. The buildup of urine in the bladder can cause infection. Back pressure and infection may progress to bladder damage and kidney (renal) failure. What are the causes? This condition is part of the normal aging process. However, not all men develop problems from thiscondition. If the prostate enlarges away from the [...] urethra. Follow these instructions at home: Take bchy-nbo-ftwzgir and prescription medicines only as told by [...] provider. Document Revised: 11/29/2021 Document Reviewed: 11/29/2021 [employer] Patient Education 2022 [employer]. 11/21/2023 16:24:07 Acute Urinary Retention, Male Acute Urinary Retention, Male Acute urinary retention is a condition in which a person is unable to pass urine or can only pass alittle urine. This condition can happen suddenly and [...] As men age, their prostate may become largerand may start to press or squeeze on the bladder or the urethra. Other chronic health conditions can increase the risk of acute urinary retention. These include: Diseases such as multiple sclerosis. Spinal cord injuries. Diabetes. Degenerative cognitive conditions, such as delirium or dementia. Psychological conditions. A man may hold his urine due to trauma or because he does not want to usethe bathroom. What are the signs or symptoms? [...] Follow these instructions at home: Medicines Take cjzj-onm-dtjlqak and prescription medicines only as told by your health care provider. Avoid certain medicines, such as decongestants, antihistamines, and some prescription medicines. Do not take any medicine unless your health care provider approves. If you were prescribed an antibiotic medicine, take it as told by your health care provider. Do notstop using the antibiotic even if you start to feel better. General instructions Do not use any products that contain nicotine or tobacco. These products include cigarettes, chewing tobacco, and vaping devices, such as e-cigarettes. If you need help quitting, ask your health careprovider. Drink enough fluid to keep your urine [...] to pass urine or can only pass alittle urine. If left untreated, this condition can [...] provider. Document Revised: 02/01/2021 Document Reviewed: 02/01/2021 [employer] Patient Education 2022 Envision [employer]. Follow Up Care 11/19/2023 07:29:00 With:JERONIMO Benoit APRN, Usha Bolton, MARA, URL Address: When: Unknown Comments:8 wk w/ PVR [facility] Chief Complaint: pt complains [...] than his usual. He was admitted to [facility] back in September 2022 for falls/orthostatic [...] and at bedtime., Disp: , Rfl: HYDROcodone-acetaminophen (Galena) 5-325 mg tablet, take 1 tablet by [...] pleural effusion. The cardiomediastina (more content not included)...[facility]02-22-2024 NotePatient here for 1 year follow up CAD, RBBB, and hypertension. Had shoulder surgery after last apt. Says he has chest discomfort and SOB w/ stairs, but this is no different than his usual. He was admitted to [facility] back in September 2022 for falls/orthostatic syncope. Had echo and carotid duplex. Review of Systems Cardiovascular: Positive for chest pain ( discomort with stairs ) and dyspnea on exertion. Musculoskeletal: Positive for arthritis, back pain, falls, joint pain and muscle weakness. Neurological: Positive for dizziness, light-headedness, loss of balance and weakness. All other systems reviewed and are negative.[facility] 02-04-2023 Evaluation note* Encounter Date Diagnosis Assessment Notes Treatment Notes Treatment Clinical Notes Jan, Medicare annual wellness visit, initial (ICD-10 - Z00.00) Personalized health advice was given to the beneficiary including a written plan for screenings discussed and provided. Advanced care planning reviewed and/or information given as requested. Additional counseling was provided here today in regards to, [ ]. The above visit was performed by [ ] underdirect supervision of [ ]. Document reviewed and amended by provider signed below. Jan,alance disorder (ICD-10 - R26.89)BP is low, not presently on meds - improve hydration and electrolytes. Pt agrees to neurology referral. [employer] Other 06-09-2023 Evaluation note* Encounter Date Diagnosis Assessment Notes Treatment Notes Treatment Clinical Notes Oct, Hyperglycemia due to type 2 diab etes mellitus (ICD-10 - E11.65) Overdue for labs. Encourage better glucose monitoring for control. Oct,Lumbar back pain with radiculopathy affecting left lower extremity (ICD-10 - M54.16)Chronic problem, radiculopathy likely contributing to falls. F/u w pain management. Oct,Essential (primary) hypertension (ICD-10 - I10)Hypotensive today. Hold bp pain and call next week w home readings. [employer] Other 04-25-2023 NoteCONSULTATION CONSULTATION DATE: 09/18/2022 TO: [...] our patients to inform us about any eilj-xab-ckrlvbd medications or herbal remedies/nutritional supplements/alternative remedies. 2. [...] treatment options with their primary care provider.[id number] Note CONSULTATION CONSULTATION DATE: 03/01/2022 This is [...] 75 mg b.i.d., Lyrica 100 mg t.i.d., Galena 5/325 b.i.d. The patient is also under the care of an orthopedic physician in [place] and received a right shoulder injection today. [...] decrease his Lyrica to b.i.d. due to SKY DIVER somnolence. He is encouraged to take his vitamins and to continue with daily exercises. The patient agreed to move forward with the procedure and will be followed in the clinic thereafter.[facility] [id number] NoteCONSULTATION CONSULTATION DATE: 01/25/2022 HISTORY OF PRESENT [...] in a sling and is awaiting the [facility] to send a referral to physical therapy. He does complain of diffuse lower back pain today that is no-radiating in nature. His most recent imaging does show bilateral foraminal narrowing as well as multilevel disc arthropathy. The patient reports all activity aggravates his pain. He is 8/10 today. Medications include Galena 5/325 b.i.d., Lyrica 100 mg t.i.d., duloxetine [...] discuss with the patient regarding seeing a data warehouse consultant, and he states he believes he has seen a data warehouse consultant at the [facility] in the past. In regards to his back, I explained the benefits of the rhizotomy series and which the patient agrees to try. We will move forward with the #1 bilateral MBB to L1, L2 and L3, L4 which is above the level of his fusion. Patient will be brought to the clinic post procedure and agrees to move forward.[facility] [id number] Hospital Discharge instructions* Instructions* Skye Garcia MD - 12/06/2021 Remain in splint. Tylenol as needed for pain. Galena in place Tylenol for pain not controlled with Tylenol. With orthopedics tomorrow. Return immediately if you develop any worsening redness pain swelling numbness or tingling of your left forearm hands or fingers or any other acute concerns * Attachments The following attachments cannot be sent through Care Everywhere. * Arm Fracture (Bangladeshi) documented in this encounterBON [employer] Work Phone: 1(995) 135-862706-30-2022 NoteCONSULTATION CONSULTATION DATE: 11/23/2021 This is a [...] Current medications include Diclofenac 50 mg b.i.d., Galena 5/325 b.i.d., Lyrica 100 mg t.i.d., amitriptyline [...] of care and all questions were answered. [facility] Signed and Approved by: DEVAN MAGALLANES . 11/30/2021 16:28:00[facility]04-13-2022 History of Present illness Narrative* Claudia Dasilva RN - 09/06/2021 2:01 PM EDT Reviewed discharge instructions with patient. All questions answered at this time. Patient waiting for ride, then will leave via private auto at discharge. * Brigid Lanza PTA - 09/06/2021 1:25 PM EDT Physical Therapy Facility/Department: [facility] Daily Treatment Note NAME: Deondre [...] 09/06/2021 1:21 PM EDT Occupational Therapy Facility/Department: [facility] Daily Treatment Note NAME: Deondre [...] forearm, wrist and digit AROM and light edge sawyer strengthening. Therapy Time Individual Concurrent Group Co-treatment Time In 1250 Time Out 1317 Minutes 27 Kristy Louis OT * Kristy Louis OT - 09/06/2021 10:42 AM EDT [facility] Inpatient/Observation/Outpatient Rehabilitation Date: 09/06/2021 Patient Name: Deondre Lr [] Inpatient Acute/Observation [] Outpatient : 1955 [] Pt no showed for scheduled appointment [x] Pt refused/declined therapy at this time due to: Not wanting to get out of bed, requested to come back after lunch for dressing before discharge. [] Pt cancelled due to: [] No Reason Given [] Sick/ill [] Other: Therapist/Mounter [employer] will attempt to see this patient, at our earliest opportunity. 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 Reports eating once daily. [...] No discharge needs at this time Contact: [phone] * Shmuel Wyatt, CONTAINER REPAIRER - MOBILE SOLUTIONS ARCHITECT - 09/06/2021 7:26 AM EDT Department of [...] Physical therapy. Has outpatient PT scheduled at [facility] 5: D/C Plan: Home 6: Continue Pain Control. Galena 5-325, 1-2 tabs every 4 hours prn [...] plan is home with out-patient therapy at [facility]. This was set up prior to surgery. He does not have advance directives but his would make decisions if he could not. LYE BOILER to monitor andassist with any needs or [...] 09/05/2021 1:05 PM EDT [facility] and report given [...] and shown to . documented in this [facility] Phone: 1(723) 825-540004-13-2022 Note [facility] Vascular Lower Extremities DVT Study Procedure Patient Name GERONIMO Koroma Date of Study 09/06/2021 Date of 1955 Gender Male Age 66 year(s) Race Room Number 0302 Corporate ID [id number] # Patient Acct [id number] # MR # [id number] Quality Systems Engineer Zunilda Morales RVT Interpreting Physician Tad Mack Referring Shmuel Wyatt, Referring Physician Nurse IRAIS-LAURA Practitioner Additional Comments Results were faxed to the floor 09/06/2021 @ 0987. Procedure Type of Study: Veins: Lower Extremities [...] !Phasic! ! ! + (more content not included)...[facility] [id number] Hospital Discharge instructions* Discharge Instr - Activity* [...] call Dr. Molina on his cell phone, [phone]. 10. Follow-up with your surgeon and physical [...] daily for 4 weeks. documented in this [facility] Phone: 1(442) 370-187103-29-2022 History of Present illness Narrative* Elena Clayton [...] EST Call received from RAEANN Cheung at [facility] in [place]. Requesting results of chest x- ray done 08/02/21 to complete medical clearance. Skye states she gave the patient the contact information for wood box maker and also states she has notified Julieta at Dr. Molina's office of these events. * Marta Ray RN - 08/03/2021 12:23 PM EST Patient instructed to contact [facility] regarding follow up with a wood box maker. Patient states he has thenumber and will reach out today. * Marta Ray RN - 08/03/2021 10:59 AM EST Attempted to contact patient regarding cardiology follow up needed prior to surgery on 08/22/21. Left message for patient to return call to [facility]. documented in this encounterDiligent Board Member Services Phone: [phone]) 184-846303-29-2022 Hospital Discharge instructions* Instructions* Zunilda Cool RN [...] activities for 24 hours. documented in this encounterDiligent Board Member Services Phone: 1(211) 289-888407-15-2021 Hospital Discharge instructions* Discharge Instr - Activity* [...] at most local grocery stores, pharmacies, and [employer]ores. If you have any questions about your [...] your physician 11) Call your doctor at [phone] for an appointment (or follow up as [...] call OFFICE. The 24- hour phone is [phone] 13) If you are unable to contact [...] Care Everywhere. * Lumbar Spinal Fusion: Post-op (Bangladeshi) * cephalexin (Bangladeshi) * fentanyl transdermal (skin patch) (Bangladeshi) * acetaminophen and hydrocodone (Bangladeshi) * diazepam (oral) (Bangladeshi) * senna (Bangladeshi) documented in this [facility] Work Phone: 1(331) 701-192407-15-2021 History of Present illness Narrative* Grover Morillo, CONTAINER REPAIRER - MOBILE SOLUTIONS ARCHITECT - 12/08/2020 8:42 AM EDT Progress Note Date:12/08/2020 Room:[facility]N222- Patient Name:Deondre Lr Date of :1955 Age:65 [...] 161 183 173 CHEMISTRIES: Recent Labs 12/06/20 14112/07/20 0542 NA 137 138 K 4.1 4.8 [...] he sees a pain management doctor in [place], [place]. Patient notes that his pain management [...] gently cleanse in shower. * Anastacia Tate OTR/L - 12/07/2020 10:10 AM EDT [facility] OCCUPATIONAL THERAPY EVALUATION - ACUTE NAME: Deondre Lr : 1955 (65 y.o.) CODE STATUS: Full Code Room: 22/N222-01 Date of Service: 12/07/2020 Patient Diagnosis(es): Pseudoarthrosis [...] L5-S1 [place] [facility] [place] [facility] LUMBAR FUSION N/A 12/06/2020 L3-4, L4-5 POSTERIOR LUMBAR INTERBODY FUSION performed by Hernandez Tovar MD at [facility] SHOULDER SURGERY SPINE SURGERY Restrictions Restrictions/Precautions: [...] Assistance: Independent (cane) Transfer Assistance: Independent Active Mold Clamper: Yes Occupation: Retired Type of occupation: multiple [...] old man from home who presents to [facility] with the above deficits s/p planned [...] 14 minutes Electronically signed by: LISA Drummond, OTR/L 12/07/2020, 10:10 AM * Enma Townsend, PT - 12/07/2020 10:07 AM EDT Physical Therapy Med Surg Initial Assessment Facility/Department: [address] [facility] Room: N222/N222-01 NAME: Deondre Lr [...] L5-S1 PLIF [place] [facility] [facility] [place] LUMBAR FUSION N/A 12/06/2020 L3-4, L4-5 POSTERIOR LUMBAR INTERBODY FUSION performed by [place] Tovar MD [place] [facility] [place]GERY SPINE SURGERY Chart Reviewed: [...] Assistance: Independent (cane) Transfer Assistance: Independent Active Mold Clamper: Yes Occupation: Retired Type of occupation: multiple [...] 1: Pt to complete HEP with indep inspector bullet slugs goals skilled nursing goal 1: Pt to complete bed mobility with indep inspector bullet slugs goal 2: Pt to complete transfers with indep inspector bullet slugs goal 3: Pt to ambulate 50-150ft with LRD and indep skilled nursing goal 4: Pt to manage 3 steps with HR and indep [facility] (6 CLICK) BASIC MOBILITY AM-[facility] Inpatient Mobility Raw Score : 18 [...] accomplish the task * Zan Arrieta [facility] - 12/06/2020 3:52 PM EDT PHARMACY NOTE Deondre Lr was ordered adalimumab. Per the [facility] Formulary Committee Policy, this medication is non-formulary and not stocked by pharmacy. The medication can be reordered at discharge. Zan Arrieta, PharmD, BCPS, A Staff Pharmacist 12/06/2020 3:52 PM documented in this [facility] [employer] [facility] [employer] Phone: [phone]) 102-583707-14-2021 NoteFLUORO FOR SURGICAL PROCEDURES : 12/06/2020 10:30 AM CLINICAL HISTORY: R52 Pain ICD10. COMPARISON: None available. Intraoperative fluoroscopy was provided for Dr. Guy melendez. A total of 71.7 seconds of fluoroscopy was used, with 4 fluoroscopic stills saved. No diagnostic images were obtained. Please see Dr. Tovar surgical notes for completeness.[facility] [employer] [facility] Phone: [phone]) 348-150307-13-2021 NoteFLUORO FOR SURGICAL PROCEDURES : 12/06/2020 10:30 AM CLINICAL HISTORY: R52 Pain ICD10. COMPARISON: None available. Intraoperative fluoroscopy was provided for Dr. Guy melendez. A total of 71.7 seconds of fluoroscopy was used, with 4 fluoroscopic stills saved. No diagnostic images were obtained. Please see Dr. Tovar surgical notes for completeness. Interpreted by: Cirilo Moreland MD Signed by: Cirilo Moreland MD 12/07/20 Final [facility]01-11-2020 History of Present illness Narrative* ChaitanyaLeida, AUTO CUSTOMIZE PAINTER - 06/06/2019 11:53 AM EST Physical Therapy Med Surg Daily Treatment Note Facility/Department: [address] [facility] Room: N222/N222-01 NAME: Deondre Lr [...] FUSION L5-S1 PLIF performed by Fanny Barone [facility] [place]GERY SPINE SURGERY Restrictions Restrictions/Precautions: [...] to Supine: Stand by assistance Comment: bess hilton log roll technique without cueing. Transfers Sit [...] benefit from continued therapy after discharge Goals skilled nursing goals inspector bullet slugs goal 1: pt to be indep with bed mobility utilizing log roll skilled nursing goal 2: pt to be indep with transfers inspector bullet slugs goal 3: pt to ambulate >100 ft with WW vs cane mod indep inspector bullet slugs goal 4: pt to navigate 4 steps with 1 HR, cane supervision assist Patient Goals Patient goals : to go home PLAN Safety Devices Type of devices: All fall risk precautions in place;Bed alarm in place;Call light within reach;Leftin bed;Nurse notified [facility] (6 CLICK) BASIC MOBILITY AM-PAC Inpatient Mobility Raw Score : 18 Therapy Time Individual Time In 1102 Time Out 1116 Minutes 14 Gait: 11 BM/Trsf: 3 Leida Tavares PTA, 06/06/19 at 11:53 AM * Hernandez Tovar MD - 06/06/2019 9:02 AM EST Patient: Deondre Lr Unit/Bed: N222/N222-01 Date of : 1955 Acct: [id number] Admitting Diagnosis: Lumbar degenerative disc disease [M51.36] [...] encourage PT OT out of bed. * Leida Tavares PTA - 06/06/2019 8:41 AM EST Physical Therapy Missed Treatment Facility/Department: [facility] N222/N222 NAME: Deondre Lr : 1955 (64 y.o.) Account: [id number] Gender: male Chart reviewed, attempted PT at [...] again at earliest convenience. * Anastacia Tate OTR/L - 06/05/2019 9:11 AM EST [facility] [place] OCCUPATIONAL THERAPY EVALUATION - ACUTE NAME: eDondre Lr : 1955 (64 y.o.) CODE STATUS: Full Code Room: N222/N222 Date of Service: 06/05/2019 Patient Diagnosis(es): Lumbar [...] and on stairs) Transfer Assistance: Independent Active Mold Clamper: Yes OBJECTIVE: Orientation Status: Orientation Overall Orientation [...] from home with spouse who presents to [facility] with the above deficits which impact [...] Individual Minutes Time In: 834 Time Out: 854 Minutes: 20 Eval: 20 minutes Electronically signed by: FE Drummond/Jaclyn 06/05/2019, 9:11 AM * Kelly Miguel, PT - 06/05/2019 9:10 AM EST Physical Therapy Med Surg Initial Assessment Facility/Department: [address] [facility] Room: [place] [id number] NAME: Deondre Lr : 1955 (64 y.o.) [...] and on stairs) Transfer Assistance: Independent Active Mold Clamper: Yes OBJECTIVE: Vision: Within Functional Limits Hearing: [...] Goals: Patient goals : to go home skilled nursing goals skilled nursing goal 1: pt to be indep with bed mobility utilizing log roll skilled nursing goal 2: pt to be indep with transfers skilled nursing goal 3: pt to ambulate >100 ft with WW vs cane mod indep skilled nursing goal 4: pt to navigate 4 steps with 1 HR, cane supervision assist [facility] (6 CLICK) BASIC MOBILITY AM-PAC Inpatient Mobility [...] - 06/04/2019 3:31 PM EST Report to [address] [place] [address] RN, pt currently on his cell phone and calm. Call placed to his son Luis to inform him of his dad's room and ph.number. Transport at bedside. * Marium Marley RN - 06/04/2019 12:45 PM EST Lab at bedside for lab draw. * Skye Perkins RN - 06/04/2019 7:36 AM EST ear mold laboratory technician here in preop to draw confirmation lab tube for surgery. documented in this [facility] [employer] Work Phone: [phone] 594-124401-11-2020 Hospital course Narrative* Hernandez Tovar MD - [...] oste[facility] of the hips. [facility]: [phone] 587-377401-11-2020 Hospital Discharge instructions* Discharge Instr - HODAN* [...] Extended Emergency Contact Information Primary Emergency Contact: hattie lr Relation: Spouse Past Surgical History: Past [...] MENTAL STATUS:} IV Access: { HODAN IV ACCESS:264316352} Nursing Mobility/ADLs: Walking {CHP DME ADLs:868358105} Transfer {CHP DME ADLs:515825051} Bathing {CHP DME ADLs:255597814} Dressing {CHP DME ADLs:637043531} Toileting {CHP DME ADLs:176106610} Feeding {CHP DME ADLs:576965186} Forensic Toxicologist {P DME ADLs:872441220} Med Delivery { HODAN MED Delivery:379218389} Wound Care Documentation and Therapy: Elimination: Continence: Bowel: {YES / NO:} Bladder: {YES / NO:} Urinary Catheter: {Urinary Catheter:189070237} Colostomy/Ileostomy/Ileal Conduit: {YES / NO:} Date of Last BM: Intake/Output Summary (Last 24 hours) at 06/06/2019 0911 Last data filed at 06/06/2019 0902 Gross per 24 hour Intake 2280 ml Output 695 ml Net 1585 ml I/O last 3 completed shifts: In: 3520 [P.O.:1520; I.V.:1999] Out: 1325 [Urine:900; Drains:425] Safety Concerns: { HODAN Safety Concerns:325828326} Impairments/Disabilities: { HODAN Impairments/Disabilities:886042566} Nutrition Therapy: Current Nutrition Therapy: { HODAN Diet List:871176598} Routes of Feeding: {[facility] DME Other Feedings:724272372} Liquids: {[facility] liquid thickness:43063} Daily Fluid Restriction: {CHP DME Yes amt example:598172848} Last Modified Barium Swallow with Video (Video Swallowing Test): {Done Not Done Date:} Treatments at the Time of Hospital Discharge: Respiratory Treatments: Oxygen Therapy: {Therapy; copd oxygen:94092} Ventilator: { CC Vent List:361188100} Rehab Therapies: {THERAPEUTIC INTERVENTION:2731956677} Weight Bearing Status/Restrictions: { CC Weight Bearin} Other Medical Equipment (for information only, NOT a DME order): {EQUIPMENT:110681224} Other Treatments: Patient's personal belongings (please select all that are sent with patient): {[facility] DME Belongings:702330487} RN SIGNATURE: {Esignature:377004089} CASE MANAGEMENT/SOCIAL WORK SECTION Inpatient Status Date: Readmission Risk Assessment Score: Readmission Risk Risk of Unplanned Readmission: 12 Discharging to Facility/ Agency Name: Address: Phone: Fax: Dialysis Facility (if applicable) Name: Address: Dialysis Schedule: Phone: Fax: Cushion Filler/Chilling Hood Operator signature: {Esignature:626627349} PHYSICIAN SECTION Prognosis: {Prognosis:1492161186} Condition at Discharge: { Patient Condition:457819658} Rehab Potential (if transferring to Rehab): {Prognosis:8733641676} Recommended Labs or Other Treatments After Discharge: Physician Certification: I certify the above information and transfer of Deondre Lr is necessaryfor the continuing treatment of the diagnosis listed and that he requires {Admit to Appropriate Level of Care:65815} for {GREATER/LESS:646514210} 30 days. Update Admission H&P: {CHP DME Changes in HandP:220630118} PHYSICIAN SIGNATURE: * Additional Instructions* Hellen Lopez [...] your physician 11) Call your doctor at [phone] for an appointment (or follow up as [...] call OFFICE. The 24- hour phone is [phone] 13) If you are unable to contact your surgeon, in an emergency situation, go to the nearest hospital emergency room. 14) shower on Saturday 15) no driving [facility] FOLLOW FOR [facility]OT . THEIR PHONE NUMBER IS [phone] documented [facility] this [facility] Phone: 1(956) 442-297301-09-2020 NoteFLUORO FOR SURGICAL PROCEDURES : 06/04/2019 6:30 AM CLINICAL HISTORY: Lumbar Fusion . COMPARISON: None available. Intraoperative fluoroscopy was provided for Dr. Tovar procedure. A total of 49.8 secondsof fluoroscopy was used, with 6 fluoroscopic stills saved. No diagnostic images were obtained. Please see Dr. Tovar surgical notes for completeness.[employer] Phone: [phone]) [phone] Geetha Cooper Incoming Radiant Results From [employer] - 06/04/2019 10:53 AM EST FLUORO FOR SURGICAL PROCEDURES : 06/04/2019 6:30 AM CLINICAL HISTORY: Lumbar Fusion . COMPARISON: None available. Intraoperative fluoroscopy was provided for Dr. Tovar procedure. A total of 49.8 seconds of fluoroscopy was used, with 6 fluoroscopic stills saved. No diagnostic images were obtained. Please see Dr. Tovar surgical notes for completeness. [employer] Phone: evaluation + Plan note Future Appointments Appointment Date:11/21/2023 03:30:00 PM Scheduled Provider:JERONIMO Benoit APRN, Usha X Location:[facility] Appointment Type:URO Complex Office Visit [facility] evaluation + Plan note Future Appointments Appointment Date:01/14/2024 11:00:00 AM Scheduled Provider:JERONIMO Benoit APRN, Usha X Location:[facility] Appointment Type:URO Office Visit [facility] Evaluation + Plan note Future Appointments Appointment Date:05/05/2024 11:00:00 AM Scheduled Provider:JERONIMO Benoit APRN, Usha X Location:[facility] Appointment Type:URO Office Visit Diagnostic Tests Pending * PSA Free & Total 01/14/24 [facility] evaluation + Plan note Future Appointments Appointment Date:12/28/2024 11:40:00 AM Scheduled Provider:JERONIMO Benoit APRN Usha X Location:[facility] Appointment Type:URO Office Visit [facility] [place] Evaluation + Plan note Future Appointments Appointment Date:01/18/2025 03:30:00 PM Scheduled Provider:JERONIMO Benoit APRN Usha X Location:[facility] Appointment Type:URO Office Visit [facility] [employer] evaluation + Plan note Future Appointments Appointment Date:03/22/2025 01:50:00 PM Scheduled Provider:JERONIMO Benoit APRN Usha X Location:[facility] Appointment Type:URO Office Visit [facility] [place] evaluation note* Diagnosis Radiculopathy, unspecified spinal region 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 Pre-op examination Preoperative examination, unspecified documented in this encounter [employer] Phone: evalgwvjty note* Diagnosis Post-op pain- Primary Other acute postoperative pain Muscle spasm Spasm of muscle 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 documented in this encounter [employer] Phone: evalijdbub note* Diagnosis Pain Generalized pain documented in this encounter [employer] Phone: evalwxhzhg note* Diagnosis Post-op pain- Primary Other acute postoperative pain Lumbar degenerative disc disease Degeneration of lumbar or lumbosacral intervertebral disc documented in this encounter [employer] Phone: evalwmmqbz note* Diagnosis Left rotator cuff tear arthropathy- Primary Post-op pain Other acute postoperative pain Atrial fibrillation (HCC) Atrial fibrillation Essential hypertension Unspecified essential hypertension Type 2 diabetes mellitus without complication (HCC) S/P reverse total shoulder arthroplasty, left documented in this encounter [employer] Phone: evaluation note* Diagnosis Closed fracture of shaft of left humerus, unspecified fracture morphology, initial encounter- Primary documented in this encounter ALEYDA ERICKSON [employer] Phone: evaluation noteNo assessment information available [facility] Work Phone: Evaluation noteNo InformationNortWellSpan York Hospital [employer] Other History general Narrative - Reported* Type Description Date Medical History Lumbar back pain wit h radiculopathy affecting left lower extremity Medical HistoryChronic renal disease, stage IVMedical HistoryHyperglycemia due to type 2 diabetes mellitusMedical HistoryEssential (primary) hypertension Medical HistoryDepression, recurrentMedical HistoryBilateral flank painMedical HistoryUnspecified deficiency anemiaSurgical HistoryMULTIPLE SURGERIES ON SHOULDERSurgical 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 (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)Surgical HistoryL4-5,-S1 DE [id number] HistorySEE SURGICAL HX [place] [employer] Other Hospital course Narrative No data available for this section [facility] [employer] [facility] Discharge instructions No data available for this section [facility] [employer] progress note No data available for this section [facility] reason for visit Narrative* Auth/CertSpecialtyDiagnoses / ProceduresReferred By ContactReferred To Contact Diagnoses S/P rotator cuff repair ROTATOR CUFF REPAIR Procedures SC RECONSTR TOTAL SHOULDER IMPLANT SHOULDER TOTAL ARTHROPLASTY REVERSE Zenia Molina MD [address] [place] [address] [address] [place] [address] Referral IDStatusReasonStart DateExpiration DateVisits RequestedVisits [id number] [employer] Phone: reason for visit Narrative* Auth/CertSpecialty Diagnoses / ProceduresReferred By ContactReferred To Contact Diagnoses Rotator cuff arthropathy of both shoulders ROTATOR CUFF ARTHROPATHY, LEFT SHOULDER Procedures SC RECONSTR TOTAL SHOULDER IMPLANT SHOULDER TOTAL ARTHROPLASTY REVERSE Zenia Molina MD [address] [place] [address] [address] [place] [address] Referral IDStatusReasonStart DateExpiration DateVisits RequestedVisits [id number] [employer] Phone: Summary Purpose Family History No Family [...] this section No Family History Records Found No data available for this section No Family History Records Found Advance Directives No Advanced Directives Records FoundDocuments on File TypeDate RecordedPatient RepresentativeExplanationACP-Advance DirectiveACP-Power of AttorneyCode StatusDate ActivatedDate InactivatedCommentsFull Code06/04/2019 3:37 PM06/08/2019 4:48 PMTypeDate RecordedPatient RepresentativeExplanationACP- Advance DirectiveACP-Power of AttorneyCode StatusDate ActivatedDate Inactivated CommentsFull Code12/06/2020 3:10 PMFull Code06/04/2019 3:37 PM06/08/2019 4:48 PMCode StatusDate ActivatedDate InactivatedCommentsFull Code12/06/2020 3:10 PM12/08/2020 6:34 PMCode StatusDate ActivatedDate InactivatedCommentsFull Code12/06/2020 3:10 PM12/08/2020 6:34 PMFull Code06/04/2019 3:37 PM06/08/2019 4:48 PMTypeDate Recorded Patient RepresentativeExplanationAdvance Directives and Living WillPower of AttorneyCode StatusDate ActivatedDate InactivatedCommentsFull Code06/04/2019 3:37 PMCode StatusDate ActivatedDate InactivatedCommentsFull Code09/05/2021 1:40 PM Full Code12/06/2020 3:10 PM12/08/2020 6:34 PMNameRelationshipHealthcare Agent RelationshipCommunicationMcnabb GarzaSpousePrimary Decision Maker* Code StatusDate ActivatedDate InactivatedCommentsFull Code09/05/2021 1:40 PM 09/06/2021 4:31 PMFull Code12/06/2020 3:10 PM12/08/2020 6:34 PMNameRelationship Healthcare Agent RelationshipCommunicationMcnabb GarzaSpousePrimary Decision Maker* Advance Directive Response Recorded Date/ Time Advance Directives No December 06 2:13pm Reason for Referral StatusReasonSpecialtyDiagnoses / ProceduresReferred By ContactReferred To ContactClosedRadiology Diagnoses Pain Procedures Fluoro For Surgical Procedures Hernandez Tovar MD [address] [place] [address] StatusReasonSpecialtyDiagnoses / ProceduresReferred By ContactReferred To ContactOpen Specialty Services Required Home Health Services Diagnoses Lumbar degenerative disc disease Hernandez Tovar MD [address], [address] [place] [address] Reason *FU 02/12 [facility] office - balance issues, falls. Normal CT in ER May - labs earlier this summer. thanks Diagnosis 1 Balance disorder (R2 6.89) Referral Organization [facility] Stephon watson Referring Provider First Name Mike Referring Provider Last Name Gee Referring Provider Specialty Family [facility] Referred Organization [facility] Referred Provider Reilly Howard Referred Address [address],[place], [place],[address] Referred Provider Specialty Neurology Referral Priority Routine [...] section and content) DATE CREATED AUTHOR 11/27/2020 [facility] DATE CREATED AUTHOR AUTHOR'S ORGANIZ ATION 12/09/2020 [facility] DATE CREATED AUTHOR AUTHOR'S ORGANIZ ATION 12/13/2021 [facility] DATE CREATED AUTHOR AUTHOR'S ORGANIZ ATION 11/02/2022 [facility] DATE CREATED AUTHOR AUTHOR'S ORGANIZ ATION 12/24/2022 [facility] DATE CREATED AUTHOR AUTHOR'S ORGANIZ ATION 06/18/2023 [facility] DATE CREATED AUTHOR AUTHOR'S ORGANIZ ATION 07/30/2023 [facility] DATE CREATED AUTHOR AUTHOR'S ORGANIZ ATION 01/23/2025 [facility] DATE CREATED AUTHOR AUTHOR'S ORGANIZ ATION 03/24/2025 [facility] Reason for Visit (unrecogniz ed section and content) StatusReasonSpecialtyDiagnoses / ProceduresReferred By ContactReferred To Contact Diagnoses RADICULOPATHY; PSEUDOARTHROSIS; SPONDYLOSIS; FACET ARTHROPATHY Procedures SC LUMBAR SPINE FUSN,POST INTRBDY L 4-5 PLIF (POSTERIOR LUMBAR INTERBODY FUSION) INFUSE 2 HOURS/ 1 C-ARM/ MAX TABLE/ SSEP/ CELL SAVERS/ NUVASIVE ([facility]) DR. TOVAR TO START AT 9:00 AM Hernandez Tovar MD [address] [place] [address] [facility] StatusReasonSpecialtyDiagnoses / ProceduresReferred By ContactReferred To Contact Diagnoses Spondylosis SPONDYLOSIS, STENOSIS, FACET ARTHROPATHY, RADICULOPATHY Procedures SC LUMBAR SPINE FUSN,POST INTRBDY L 4-5 DECOMPRESSION, L5-S1 PLIF (POSTERIOR LUMBAR INTERBODY FUSION), 2 HOURS/ 1 C-ARM/ NUVASIVE/ SSEP/ CELL SAVERS/ MAX TABLE, OUTSIDE PAT AT [place] Hernandez Tovar MD [address] [place] [address] [facility] ReasonCommentsFallfell off bed this am onto left shoulder that just had surgery on about 2 months ago Ordered Prescriptions (unrec ognized section and content) PrescriptionSigDispensedRefillsStart DateEnd Date diazePAM (VALIUM) 5 MG tablet Indications:Muscle spasmTake 1 tablet by mouth every 8 hours as needed (muscle spasm) for up to 3 days. 12 tablet / sennosides-docusate sodium (SENOKOT-S) 8.6-50 MG tablet Take 1 tablet by mouth 2 times daily for 10 days 20 tablet / cephALEXin (KEFLEX) 500 MG capsule Take 1 capsule by mouth every 8 hours for 20 doses 20 capsule / HYDROcodone-acetaminophen (NORCO) 7.5-325 MG per tablet Indications:Post-op painTake 1 tablet by mouth every 6 hours as needed for Pain for up to 7 days. 28 tablet / fentaNYL (DURAGESIC) 25 MCG/HR Indications:Post-op painPlace 1 patch onto the skin every 72 hours for 9 days. 3 patch /rescriptionSigDispensedRefillsStart DateEnd Date HYDROcodone-acetaminophen (NORCO) 5-325 MG per tablet Indications:Post-op painTake 1 tablet by mouth every 4 hours as needed for Pain for up to 7 days. Intended supply: 7 days. Take lowest dose possible to manage pain 42 tablet / aspirin 325 MG EC tablet Take 1 tablet by mouth daily 30 tablet rescriptionSigDispensedRefillsStart DateEnd Date HYDROcodone-acetaminophen (NORCO) 5-325 MG per tablet Indications:Closed fracture of shaft of left humerus, unspecified fracture morphology, initial encounterTake 1 tablet by mouth every 6 hours as needed for Pain for up to 3 days. Intended supply: 3 days. Take lowest dose possible to manage pain 12 tablet / Scheduled Active and Recently Administ ered Medications (unrecognized section and content) Medication Order// 0.9 % sodium chloride bolus (COMPLETED) 500 mL (6.13 mL/kg), Intravenous, at 500 mL/hr, Administer over 1 Hours, ONCE, On Sat12/06/20 at 1600, For 1 dose * 1540 (New Bag - Provider: Brielle Tompkins RN) * 1637 (Stopped - Provider: Brielle Tompkins RN) amitriptyline (ELAVIL) tablet 50 mg 50 mg, Oral, DAILY, First dose on Sat12/06/20 at 1530 * 1614 (Given - Provider: Brielle Tompkins RN) * 0743 (Given - Provider: Adelaide Villela RN) * 0839 (Given - Provider: Adelaide Villela, REAANN) ascorbic acid (VITAMIN C) tablet 500 mg 500 mg, Oral, DAILY, First dose on Sat12/06/20 at 1530 * 1614 (Given - Provider: Brielle Tompkins RN) * 0743 (Given - Provider: Adelaide Villela, RAEANN) * 0839 (Given - Provider: Adelaide Villela, RAEANN) aspirin chewable tablet 81 mg 81 mg, Oral, DAILY, First dose on Sat12/06/20 at 1530 * 203 (Not Given - Provider: Sasha Garcia RN - Reason: Other - Comment: given today) * 0742 (Given - Provider: Adelaide Villela, RAEANN) * 0838 (Given - Provider: Adelaide Villela, RAEANN) ceFAZolin (ANCEF) 2000 mg in dextrose 5 % 100 mL IVPB () 2,000 mg, Intravenous, EVERY 8 HOURS, 2 doses, First dose on Sat12/06/20 at 1530, Last dose on Sat12/06/20 at 2330, Post-op * 2130 (Due - Provider: Brielle Tompkins RN) * 2328 (New Bag - Provider: Sasha Garcia RN) * 2358 (Stopped - Provider: Sasha Garcia RN) cephALEXin (KEFLEX) capsule 500 mg 500 mg, Oral, EVERY 8 HOURS SCHEDULED (3 times per day), First dose on Sat12/07/20 at 0600, For 20 doses * 0602 (Given - Provider: Sasha Garcia RN) * 1331 (Given - Provider: Adelaide Villela, RAEANN) * 2124 (Given - Provider: Blanca Reyes, RAEANN) * 0533 (Given - Provider: Blanca Reyes RN) * 1457 (Given - Provider: Adelaide Villela, RAEANN) * 2200 (Due) docusate sodium (COLACE) capsule 100 mg 100 mg, Oral, 2 TIMES DAILY, First dose on Sat12/06/20 at 2100 * 2040 (Given - Provider: Sasha Garcia RN) * 0743 (Given - Provider: Adelaide Villela, RAEANN) * 2124 (Given - Provider: Blanca Reyes, RAEANN) * 0839 (Given - Provider: Adelaide Villela RN) * 2100 (Due) DULoxetine (CYMBALTA) extended release capsule 60 mg 60 mg, Oral, DAILY, First dose on Sat12/06/20 at 1530, Do not crush or break. May add contents of capsule to apple juice or apple sauce, but not chocolate. * 1623 (Given - Provider: Brielle Tompkins RN) * 0742 (Given - Provider: Adelaide Villela, RAEANN) * 0839 (Given - Provider: Adelaide Villela RN) fentaNYL (DURAGESIC) 25 MCG/HR 1 patch 1 patch, Transdermal, Administer over 72 Hours, EVERY 72 HOURS, First dose on Sat12/07/20 at 1015 * 0924 (Patch Applied - Provider: Adelaide Villela, RAEANN) ferrous sulfate (IRON 325) tablet 325 mg 325 mg, Oral, DAILY WITH BREAKFAST, First dose on Sat12/07/20 at 0800 * 0743 (Given - Provider: Adelaide Villela RN) * 0839 (Given - Provider: Adelaide Villela, RAEANN) flecainide (TAMBOCOR) tablet 100 mg 100 mg, Oral, 2 TIMES DAILY, First dose on Sat12/06/20 at 2100 * 2040 (Given - Provider: Sasha Garcia RN) * 0742 (Given - Provider: Adelaide Villela, RAEANN) * 212 (Given - Provider: Blanca Reyes, RN) * 0839 (Given - Provider: Adelaide Villela, RAEANN) * 2099 (Due) folic acid (FOLVITE) tablet 1 mg 1 mg, Oral, DAILY, First dose on Sat12/06/20 at 1530 * 1623 (Given - Provider: Brielle Tompkins RN) * 0744 (Given - Provider: Adelaide Villela, RAEANN) * 0839 (Given - Provider: Adelaide Villela, RAEANN) furosemide (LASIX) tablet 40 mg 40 mg, Oral, DAILY, First dose on Sat12/06/20 at 1530 * 1520 (Held - Provider: Brielle Tompkins RN - Reason: Contraindicated) * 0743 (Given - Provider: Adelaide Villela RN) * 0806 (Held - Provider: Adelaide Villela RN - Reason: Other - Comment: BP <100) gabapentin (NEURONTIN) capsule 300 mg 300 mg, Oral, DAILY, First dose on Sat12/06/20 at 1530 * 1614 (Given - Provider: Brielle Tompkins RN) * 0743 (Given - Provider: Adelaide Villela, RAEANN) * 0839 (Given - Provider: Adelaide Villela, RAEANN) insulin glargine (LANTUS) injection vial 10 Units 10 Units, Subcutaneous, NIGHTLY, First dose on Sat12/06/20 at 2100 * 2221 (Given - Provider: Sasha Garcia, RAEANN) * 2126 (Given - Provider: Blanca Reyes, RN) * 2099 (Due) insulin lispro (HUMALOG) injection vial 0-12 Units 0-12 Units, Subcutaneous, 3 TIMES DAILY WITH MEALS, First dose on Sat12/06/20 at 1700, Medium Dose Corrective Algorithm Glucose: Dose: If <139 No Insulin 140-199 2 Units 200-249 4 Units 250-299 6 Units 300-349 8 Units 350-400 10 Units Above 400 12 Units * 1623 (Given - Provider: Brielle Tompkins RN) * 0750 (Given - Provider: Adelaide Villela, RAEANN) * 1215 (Given - Provider: Adelaide Villela RN) * 1733 (Given - Provider: Adelaide Villela RN) * 0842 (Given - Provider: Adelaide Villela, RAEANN) * 1205 (Not Given - Provider: Adelaide Villela RN - Reason: Order parameters not met) * 1700 (Due) insulin lispro (HUMALOG) injection vial 0-6 [...] 350-400 5 Units Above 400 6 Units * 2220 (Given - Provider: Sasha Garcia RN) * 213 (Given - Provider: Blanca Reyes, RAEANN) * 2100 (Due) lisinopril (PRINIVIL;ZESTRIL) tablet 10 mg 10 mg, Oral, DAILY, First dose on Sat12/06/20 at 1530 * 1520 (Held - Provider: Brielle Tompkins RN - Reason: Contraindicated) * 0743 (Given - Provider: Adelaide Villela RN) * 0807 (Not Given - Provider: Adelaide Villela RN - Reason: Other - Comment: BP <100) melatonin disintegrating tablet 5 mg 5 mg, Oral, NIGHTLY, First dose on Sat12/06/20 at 2100 * 2040 (Given - Provider: Sasha Garcia RN) * 2124 (Given - Provider: Blanca Reyes, RAEANN) * 2100 (Due) metoprolol succinate (TOPROL XL) extended release tablet 50 mg (COMPLETED) 50 mg, Oral, ISSUER TO O.R., On Sat12/06/20 at 0800, For 1 dose, Do not crush or chew. * 0807 (Given - Provider: Deborah Ray RN) metoprolol succinate (TOPROL XL) extended release tablet 50 mg 50 mg, Oral, DAILY, First dose on Sat12/06/20 at 1530, Do not crush or chew. * 1521 (Held - Provider: Brielle Tompkins RN - Reason: Contraindicated) * 0742 (Given - Provider: Adelaide Villela, RAEANN) * 0807 (Not Given - Provider: Adelaide Villela RN - Reason: Other - Comment: BP <100) pantoprazole (PROTONIX) tablet 20 mg 20 mg, Oral, DAILY, First dose on Sat12/06/20 at 1530, Do not crush or break. * 1623 (Given - Provider: Brielle Tompkins RN) * 0743 (Given - Provider: Adelaide Villela RN) * 0839 (Given - Provider: Adelaide Villela RN) prednisoLONE (ORAPRED) 15 MG/5ML solution 5 mg 5 mg, Oral, DAILY, First dose on Sat12/06/20 at 1530 * 1620 (Held - Provider: Brielle Tompkins RN - Reason: Other) * 0756 (Not Given - Provider: Adelaide Villela RN - Reason: Other - Comment: pt has not been taking) * 0807 (Not Given - Provider: Adelaide Villela RN - Reason: Other - Comment: pt not taking at home) sennosides-docusate sodium (SENOKOT-S) 8.6-50 MG tablet 1 tablet 1 tablet, Oral, 2 TIMES DAILY, First dose on Sat12/06/20 at 2100, Post-op * 2044 (Not Given - Provider: Sasha Garcia RN - Reason: Patient/family refused) * 0743 (Given - Provider: Adelaide Villela RN) * 212 (Given - Provider: Blanca Reyes RN) * 0839 (Given - Provider: Adelaide Villela, RAEANN) * 2099 (Due) sertraline (ZOLOFT) tablet 100 mg 100 mg, Oral, 2 TIMES DAILY, First dose on Sat12/06/20 at 2100 * 2039 (Given - Provider: Sasha Garcia RN) * 0743 (Given - Provider: Adelaide Villela RN) * 212 (Given - Provider: Blanca Reyes RN) * 0839 (Given - Provider: Adelaide Villela, RAEANN) * 2100 (Due) sodium chloride flush 0.9 % injection 10 mL 10 mL, Intravenous, EVERY 12 HOURS SCHEDULED (2 times per day), First dose on Sat12/06/20 at 2100, Post-op * 2045 (Not Given - Provider: Sasha Garcia RN - Reason: IV Fluid Infusing) * 0744 (Given - Provider: Adelaide Villela RN) * 1944 (Given - Provider: Blanca Reyes RN) * 0849 (Given - Provider: Adelaide Villela, RAEANN) * 2100 (Due) sulfaSALAzine (AZULFIDINE) tablet 1,000 mg 1,000 mg, Oral, 2 TIMES DAILY, First dose on Sat12/06/20 at 2100 * 2219 (Given - Provider: Sasha Garcia RN - Comment: sent from pharmacy) * 0742 (Given - Provider: Adelaide Villela RN) * 2123 (Given - Provider: Blanca Reyes RN) * 0839 (Given - Provider: Adelaide Villela RN) * 2100 (Due) thiamine tablet 100 mg 100 mg, Oral, DAILY, First dose on Sat12/06/20 at 1530 * 1614 (Given - Provider: Brielle Tompkins RN) * 0743 (Given - Provider: Aedlaide Villela RN) * 0839 (Given - Provider: Adelaide Villela, RAEANN) Medication Order// 0.45 % NaCl with KCl 20 mEq infusion 100 mL/hr, Intravenous, at 100 mL/hr, CONTINUOUS, Starting on Sat12/06/20 at 1530, Post-op * 1612 (New Bag - Provider: Brielle Tompkins RN) * 0255 (New Bag - Provider: Sasha Garcia RN) lactated ringers infusion (CANCELED) Intravenous, at 100 mL/hr, CONTINUOUS, Starting on Sat12/06/20 at 0800, Pre-op (day of surgery) * 0750 (New Bag - Provider: Deborah Ray RN) Medication Order// 0.9 % sodium chloride infusion 25 mL, Intravenous, at 100 mL/hr, PRN, If patient receiving piggyback infusions without ordered maintenance IV fluids or with frequent/long duration piggyback infusions, Starting on Sat12/06/20 at 1510, Administer at the same rate as the piggyback being infused., Post-op bacitracin ointment (CANCELED) PRN, Starting on Sat12/06/20 at 1331, Intra-op * 1335 (Given - Provider: Hernandez Tovar MD) cyclobenzaprine (FLEXERIL) tablet 10 mg (CANCELED) 10 mg, Oral, 3 TIMES DAILY PRN, Muscle spasms, Starting on Sat12/06/20 at 1510, Post-op * 1732 (Given - Provider: Brielle Tompkins RN) * 0602 (Given - Provider: Sasha Garcia RN) * 1331 (Given - Provider: Adelaide Villela, RAEANN) * 2124 (Given - Provider: Blanca Reyes, RAEANN) * 0533 (Given - Provider: Blanca Reyes, RAEANN) [...] treatment and recheck blood glucose in 15 minutesx2. If using Glucostabilizer, dose as instructed per system. diazePAM (VALIUM) tablet 5 mg 5 mg, Oral, EVERY 6 HOURS PRN, muscle spasm, Starting on Shalonda 12/08/20 at 0814 * 0838 (Given - Provider: Adelaide Villela, RAEANN) * 1457 (Given - Provider: Adelaide Villela, RAEANN) fentaNYL (SUBLIMAZE) injection 50 mcg (CANCELED) 50 mcg, Intravenous, EVERY 10 MIN PRN, Pain Moderate (4-6), Starting on Sat12/06/20 at 0800, For 4 doses, Phase I - Initial therapy for moderate pain., PACU only * 1424 (Given - Provider: Maribell Heath, RAEANN) * 1436 (Given - Provider: Maribell Heath, RAEANN) gelatin adsorbable (GELFOAM) sponge (CANCELED) PRN, Starting on Sat12/06/20 at 1015, Intra-op * 1015 (Given - Provider: Hernandez Tovar MD [...] glucose gel. Repeat blood glucose in 15 minutes.If blood glucose is less than 70 mg/dL, repeat treatment and recheck blood glucose in 15 minutes x2and notify provider. HYDROcodone-acetaminophen (NORCO) 7.5-325 MG per tablet 1 tablet 1 tablet, Oral, EVERY 4 HOURS PRN, Pain Moderate (4-6), Starting on Sat12/06/20 at 1510, Maximum dose of acetaminophen is 4000 mg from all sources in 24 hours. * 1614 (Given - Provider: Brielle Tompkins RN) * 203 (Given - Provider: Sasha Garcia RN) * 0340 (Given - Provider: Sasha Garcia RN) * 0923 (Given - Provider: Adelaide Villela, RAEANN) * 1331 (Given - Provider: Adelaide Villela, RAEANN) * 1733 (Given - Provider: Adelaide Villela RN) * 2124 (Given - Provider: Blanca Reyes RN) * 0348 (Given - Provider: Blanca Reyes RN) * 0839 (Given - Provider: Adelaide Villela RN) * 1243 (Given - Provider: Adelaide Villela, RAEANN) HYDROmorphone (DILAUDID) injection 0.5 mg (CANCELED) 0.5 mg, Intravenous, EVERY 3 HOURS PRN, Pain Moderate (4-6), Starting on Sat12/06/20 at 1510, If oral and IV narcotics ordered, use oral first and only use IV if oral is ineffective or cannot take oral. Do Not give oral and IV within 1 hour of each other unless specifically ordered. * 2351 (Given - Provider: Sasha Garcia RN) * 0742 (Given - Provider: Adelaide Villela RN) * 1552 (Given - Provider: Adelaide Villela, RAEANN) * 1945 (Given - Provider: Blanca Reyes RN) * 2319 (Given - Provider: Blanca Reyes RN) ondansetron (ZOFRAN) injection 4 mg(Linked Group 1) 4 mg, Intravenous, EVERY 6 HOURS PRN, Nausea, Vomiting, Starting on Sat12/06/20 at 1510, Administerif oral route cannot be used., Post-op promethazine (PHENERGAN) tablet 12.5 mg(Linked Group 1) 12.5 mg, Oral, EVERY 6 HOURS PRN, Nausea, Vomiting, Starting on Sat12/06/20 at 1510, Post-op sodium chloride 0.9 % 1,000 mL with gentamicin (GARAMYCIN) 80 mg (CANCELED) PRN, Starting on Sat12/06/20 at 1014, Intra-op * 1014 (Given - Provider: Hernandez Tovar MD - Comment: prn for irrigation) * 1209 (Given - Provider: Hernandez Tovar MD - Comment: prn for irrigation) sodium chloride 0.9 % 1,000 mL with heparin (porcine) 30,000 Units (CANCELED) PRN, Starting on Sat12/06/20 at 1014, Intra-op * 1014 (Given - Provider: Hernandez Tovar MD - Comment: prn for cell saver- not directly administered intopatient) sodium chloride 0.9 % irrigation (COMPLETED) CONTINUOUS PRN, Starting on Sat12/06/20 at 1014, Intra-op * 1014 (New Bag - Provider: Hernandez Tovar MD - Comment: prn for bipolar) * 1016 (New Bag - Provider: Hernandez Tovar MD - Comment: prn) * 1019 (New Bag - Provider: Hernandez Tovar MD - Comment: prn for cell saver) sodium chloride flush 0.9 % injection 10 mL 10 mL, Intravenous, PRN, Line Care, Starting on Sat12/06/20 at 1510, After every IV line use, Post-op thrombin kit (CANCELED) PRN, Starting on Sat12/06/20 at 1015, Intra-op * 1015 (Given - Provider: Hernandez Tovar MD - Comment: prn) Order Group 1: promethazine (PHENERGAN) tablet 12.5 mgJump to med 12.5 mg, Oral, EVERY 6 HOURS PRN, Nausea, Vomiting, Starting on Sat12/06/20 at 1510, Post-op Or ondansetron (ZOFRAN) injection 4 mgJump to med 4 mg, Intravenous, EVERY 6 HOURS PRN, Nausea, Vomiting, Starting on Sat12/06/20 at 1510
Administer if oral route cannot be used.
Post-op Medication Order/// acetaminophen (TYLENOL) tablet 650 mg 650 mg, Oral, ONCE, 1 dose, On Sat08/22/21 at 1030, Maximum dose of acetaminophen is 4000 mg from all sources in 24 hours., Pre-op (day of surgery) * 1030 (Due) acetaminophen (TYLENOL) tablet 650 mg (COMPLETED) 650 mg, Oral, ONCE, 1 dose, On Sat08/22/21 at 1030, Two (2) hours prior to surgery., Pre-op (day ofsurgery) * 1052 (Given - Provider: Brigid Ferrari RN) ceFAZolin (ANCEF) 2000 mg in dextrose 5 % 100 mL IVPB 2,000 mg, IntraVENous, ONCE, 1 dose, On Sat08/22/21 at 1030, Antimicrobial Indications: Surgical Prophylaxis, Pre-op (day of surgery) * 1030 (Due) dimenhyDRINATE (DRAMAMINE) tablet 50 mg 50 mg, Oral, ONCE, 1 dose, On Sat08/22/21 at 1030, Pre-op (day of surgery) * 1030 (Due) dimenhyDRINATE (DRAMAMINE) tablet 50 mg (COMPLETED) 50 mg, Oral, ONCE, 1 dose, On Sat08/22/21 at 1030 * 1052 (Given - Provider: Brigid Ferrari RN) Medication Order/// lactated ringers infusion IntraVENous, at 100 mL/hr, CONTINUOUS, Starting on Sat08/22/21 at 1030, Pre-op (day of surgery) * 1030 (Due) lactated ringers infusion IntraVENous, at 100 mL/hr, CONTINUOUS, Starting on Sat08/22/21 at 1030 * 1051 (New Bag - Provider: Brigid Ferrari, RAEANN) * 1200 (Stopped - Provider: Brigid Ferrari RN) Medication Order// acetaminophen (TYLENOL) tablet 650 mg (COMPLETED) 650 mg, Oral, ONCE, 1 dose, On Sat09/05/21 at 0745, Maximum dose of acetaminophen is 4000 mg from all sources in 24 hours., Pre-op (day of surgery) * 0814 (Given - Provider: Elena Clayton, RAEANN) acetaminophen (TYLENOL) tablet 650 mg 650 mg, Oral, EVERY 6 HOURS SCHEDULED (4 times per day), First dose on Sat09/05/21 at 1800, Until Discontinued, Maximum dose of acetaminophen is 4000 mg from all sources in 24 hours., Post-op * 1707 (Given - Provider: Luz Marina Kerr, RN) * 2346 (Given - Provider: Colin Younger, RAEANN) * 0519 (Given - Provider: Raisa Fried, RAEANN) * 1144 (Given - Provider: Claudia Dasilva RN) * 1800 (Due) amitriptyline (ELAVIL) tablet 50 mg 50 mg, Oral, DAILY, First dose on Sat09/05/21 at 1500, Until Discontinued * 1407 (Given - Provider: Luz Marina Kerr RN) * 0810 (Given - Provider: Claudia Dasilva, RAEANN) ascorbic acid (VITAMIN C) tablet 500 mg 500 mg, Oral, DAILY, First dose on Sat09/06/21 at 0900, Until Discontinued * 0810 (Given - Provider: Claudia Dasilva, RAEANN) aspirin EC tablet 325 mg 325 mg, Oral, DAILY, First dose on Sat09/06/21 at 0900, Until Discontinued, Do not crush or break. * 0810 (Given - Provider: Claudia Dasilva, RAEANN) ceFAZolin (ANCEF) 2000 mg in dextrose 5 % 100 mL IVPB (COMPLETED) 2,000 mg, IntraVENous, ONCE, 1 dose, On Sat09/05/21 at 0900, Antimicrobial Indications: Surgical Prophylaxis, Pre-op (day of surgery) * 0848 (New Bag - Provider: Gem Parker RN) * 0918 (Stopped - Provider: Claudia Dasilva, RAEANN) ceFAZolin (ANCEF) 2000 mg in dextrose 5 % 100 mL IVPB (COMPLETED) 2,000 mg, IntraVENous, EVERY 8 HOURS, 2 doses, First dose on Sat09/05/21 at 1700, Last dose on Sat09/06/21 at 0100, Antimicrobial Indications: Surgical Prophylaxis, Post-op * 1624 (New Bag - Provider: Luz Marina Kerr RN) * 1655 (Stopped - Provider: Luz Marina Kerr RN) * 0042 (New Bag - Provider: Colin Younger, RAEANN) * 0115 (Stopped - Provider: Colin Younger, RAEANN) dimenhyDRINATE (DRAMAMINE) tablet 50 mg (COMPLETED) 50 mg, Oral, ONCE, 1 dose, On Sat09/05/21 at 0745, Pre-op (day of surgery) * 0814 (Given - Provider: Elena Clayton, RAEANN) docusate sodium (COLACE) capsule 100 mg 100 mg, Oral, 2 TIMES DAILY, First dose on Sat09/05/21 at 2100, Until Discontinued * 2119 (Given - Provider: Colin Younger, RAEANN) * 0810 (Given - Provider: Claudia Dasilva, RAEANN) * 2100 (Due) DULoxetine (CYMBALTA) extended release capsule 60 mg 60 mg, Oral, DAILY, First dose on Sat09/05/21 at 1500, Until Discontinued, Do not crush or break. May add contents of capsule to apple juice or apple sauce, but not chocolate. * 1408 (Given - Provider: Luz Marina Kerr RN) * 0810 (Given - Provider: Claudia Dasilva RN) ferrous sulfate (IRON 325) tablet 325 mg 325 mg, Oral, DAILY WITH BREAKFAST, First dose on Sat09/06/21 at 0800, Until Discontinued * 0810 (Given - Provider: Claudia Dasilva RN) flecainide (TAMBOCOR) tablet 100 mg 100 mg, Oral, 2 TIMES DAILY, First dose on Sat09/05/21 at 2100, Until Discontinued * 2118 (Given - Provider: Colin Younger RN) * 0810 (Given - Provider: Claudia Dasilva RN) * 2100 (Due) folic acid (FOLVITE) tablet 1 mg 1 mg, Oral, DAILY, First dose on Sat09/06/21 at 0900, Until Discontinued * 0810 (Given - Provider: Claudia Dasilva RN) furosemide (LASIX) tablet 40 mg 40 mg, Oral, DAILY, First dose on Sat09/05/21 at 1500, Until Discontinued * 1408 (Given - Provider: Luz Marina Kerr RN) * 0810 (Given - Provider: Claudia Dasilva RN) gabapentin (NEURONTIN) capsule 100 mg (COMPLETED) 100 mg, Oral, ONCE, 1 dose, On Sat09/05/21 at 0745, Pre-op (day of surgery) * 0814 (Given - Provider: Elena Clayton RN) gabapentin (NEURONTIN) capsule 300 mg 300 mg, Oral, DAILY, First dose (after last modification) on Sat09/06/21 at 0900, Until Discontinued * 0810 (Given - Provider: Claudia Dasilva RN) insulin glargine (LANTUS) injection vial 10 Units 10 Units, SubCUTAneous, NIGHTLY, First dose on Sat09/05/21 at 2100, Until Discontinued * 2118 (Given - Provider: Colin Younger RN) * 2099 (Due) insulin lispro (HUMALOG) injection vial 0-3 Units 0-3 Units, SubCUTAneous, NIGHTLY, First dose on Sat09/05/21 at 2100, Until Discontinued, If continuous tube feedings/TPN/NPO, give correction dose based on result, no reduction in dose. If eating or bolus tube feeding: Low Dose Bedtime Correction Algorithm Glucose: Dose: 70-139 No Insulin 140-249 1 Unit 250-349 2 Units 350 and above 3 Units * 2120 (Not Given - Provider: Colin Younger RN - Reason: Patient/family refused - Comment: 199) * 2100 (Due) insulin lispro (HUMALOG) injection vial 0-6 Units 0-6 Units, SubCUTAneous, 3 TIMES DAILY WITH MEALS, First dose on Sat09/05/21 at 1715, Until Discontinued, Low Dose Correction Algorithm Glucose: Dose: 70- 139 No Insulin 140-199 1 Unit 200-249 2 Units 250-299 3 Units 300-349 4 Units 350-399 5 Units 400 and above 6 Units * 1706 (Given - Provider: Luz Marina Kerr RN - Comment: fsbs 204) * 0809 (Given - Provider: Claudia Dasilva RN - Comment: 156) * 1145 (Given - Provider: Claudia Dasilva RN) * 1700 (Due) lisinopril (PRINIVIL;ZESTRIL) tablet 10 mg 10 mg, Oral, DAILY, First dose on Sat09/05/21 at 1500, Until Discontinued * 1407 (Given - Provider: Luz Marina Kerr RN) * 0810 (Given - Provider: Claudia Dasilva RN) melatonin tablet 5 mg 5 mg, Oral, NIGHTLY, First dose on Sat09/05/21 at 2100, Until Discontinued * 2119 (Given - Provider: Colin Younger RN) * 2100 (Due) metoprolol succinate (TOPROL XL) extended release tablet 50 mg (COMPLETED) 50 mg, Oral, NOW, 1 dose, On Sat09/05/21 at 0830, Do not crush or chew. * 0824 (Given - Provider: Elena Clayton RN) metoprolol succinate (TOPROL XL) extended release tablet 50 mg 50 mg, Oral, DAILY, First dose (after last modification) on Sat09/06/21 at 0900, Until Discontinued, Do not crush or chew. * 0810 (Given - Provider: lCaudia Dasilva RN) pantoprazole (PROTONIX) tablet 40 mg 40 mg, Oral, DAILY BEFORE BREAKFAST, First dose on Sat09/06/21 at 0700, Until Discontinued, Do not crush or break. Substituted for Omeprazole (PRILOSEC). * 0650 (Given - Provider: Claudia Dasilva RN) sertraline (ZOLOFT) tablet 100 mg 100 mg, Oral, 2 TIMES DAILY, First dose on Sat09/05/21 at 2100, Until Discontinued * 2118 (Given - Provider: Colin Younger RN) * 0810 (Given - Provider: Claudia Dasilva RN) * 2100 (Due) sodium chloride flush 0.9 % injection 10 mL 10 mL, IntraVENous, EVERY 12 HOURS SCHEDULED (2 times per day), First dose on Sat09/05/21 at 2100, Until Discontinued, Post-op * 2119 (Not Given - Provider: Colin Younger RN - Reason: IV Fluid Infusing) * 0757 (Not Given - Provider: Claudia Dasilva RN - Reason: IV Fluid Infusing) * 2100 (Due) sulfaSALAzine (AZULFIDINE) tablet 1,000 mg 1,000 mg, Oral, 2 TIMES DAILY, First dose on Sat09/05/21 at 2100, Until Discontinued * 2118 (Given - Provider: Colin Younger RN) * 0810 (Given - Provider: Claudia Dasilva RN) * 2100 (Due) thiamine mononitrate tablet 100 mg 100 mg, Oral, DAILY, First dose on Sat09/06/21 at 0900, Until Discontinued * 0810 (Given - Provider: Claudia Dasilva RN) Medication Order// 0.9 % sodium chloride infusion IntraVENous, at 100 mL/hr, CONTINUOUS, Starting on Sat09/05/21 at 1400, Post-op * 1406 (New Bag - Provider: Luz Marina Kerr RN) * 0041 (New Bag - Provider: Colin Younger RN) * 1144 (Stopped - Provider: Claudia Dasilva RN) lactated ringers infusion (CANCELED) IntraVENous, at 100 mL/hr, CONTINUOUS, Starting on Sat09/05/21 at 0745, Pre-op (day of surgery) * 0813 (New Bag - Provider: Elena Clayton RN) * 0851 (NoRateChange - Provider: IRAIS Regalado CRNA) * 1055 (Paused - Provider: IRAIS Regalado CRNA - Comment: Switch to gravity) * 1056 (Restarted - Provider: IRAIS Regalado CRNA) * 1100 (Stopped - Provider: IRAIS Regalado CRNA) * 1127 (New Bag - Provider: Pamella Singh, RAEANN) * 1230 (Stopped - Provider: Claudia Dasilva RN) Medication Order// 0.9 % sodium chloride infusion 25 mL, IntraVENous, at 100 mL/hr, PRN, If patient receiving piggyback infusions without ordered maintenance IV fluids or with frequent/long duration piggyback infusions, Starting on Sat09/05/21 at 1340, Administer at the same rate as the piggyback being infused., Post-op ceFAZolin (ANCEF) 2,000 mg in sodium chloride 0.9 % 3,000 mL (CANCELED) PRN, Starting on Sat09/05/21 at 0945, Intra-op * 0945 (Given - Provider: Zenia Molina MD [...] until ordering provider can be reached. Repeat bloodglucose in 15 minutes. If blood glucose is [...] Blood Glucose in 15 minutes. If blood glucoseis less than 70 mg/dL, repeat treatment and recheck blood glucose in 15 minutes x 2 and notify provider. When Dextrose 10% is given for hypoglycemia start D5W at 100 mL/hour until Provider can be reached. dextrose bolus (hypoglycemia) 10% 250 mL(Linked Group 1) 250 mL, IntraVENous, at 937.5 mL/hr, Administer over 16 Minutes, PRN, Other, Hypoglycemia, Startingon Sat09/05/21 at 1352, If patient NPO, unconscious [...] doses, Starting on Sat09/05/21 at 1019, Until Discontinued,Pain Moderate (4-6), For Phase I. If Phase II oral narcotics have been administered in the last 60 minutes, do not administer IV narcotics unless specifically approved by provider., PACU only * 1135 (Given - Provider: Pamella Singh RN) * 1140 (Given - Provider: Pamella Singh RN) gentamicin (GARAMYCIN) injection (CANCELED) PRN, Starting on Sat09/05/21 at 0945, Until Sat09/05/21 at 1318, Intra-op * 0945 (Given - Provider: Zenia Molina MD) glucagon (rDNA) injection 1 mg 1 mg, IntraMUSCular, PRN, Starting on Sat09/05/21 at 1651, Until Discontinued, Low blood sugar, Blood glucose less than 70 mg/dL and patient NOT ALERT or NPO and does not have IV access., After administration, attempt intravenous access and start D5W at 100 mL/hr. Repeat blood glucose in 15 minutesx2 and notify provider. glucose (GLUTOSE) 40 % [...] 70 mg/dL, repeat treatment and recheck blood gluco se in 15 minutes x2 and notify provider. morphine (PF) injection 2 mg(Linked Group 2) 2 mg, IntraVENous, EVERY 2 HOURS PRN, Starting on Sat09/05/21 at 1340, Until Discontinued, Pain Moderate (4-6), If oral and IV narcotics ordered, use oral first and only use IV if oral is ineffectiveor cannot take oral. Do Not give oral and IV within 1 hour of each other unless specifically ordered., Post-op * 1408 (Given - Provider: Luz Marina Kerr RN) * 162 (See Alternative - Provider: Luz Marina Kerr RN) * 1943 (See Alternative - Provider: Colin Younger RN) * 013 (See Alternative - Provider: Colin Younger [...] of each other unless specifically ordered., Post-op * 1408 (See Alternative - Provider: Luz Marina Kerr RN) * 1621 (Given - Provider: Luz Marina Kerr RN) * 1943 (Given - Provider: Colin Younger RN) * 0135 (Given - Provider: Colin Younger, RAEANN) ondansetron (ZOFRAN) injection 4 mg(Linked Group 3) [...] Pain Moderate (4-6), Pain Severe (7-10), Post-op * 0651 (Given - Provider: Claudia Dasilva, RAEANN) * 1145 (Given - Provider: Claudia Dasilva, AREANN) sodium chloride flush 0.9 % injection 10 mL 10 mL, IntraVENous, PRN, Starting on Sat09/05/21 at 1340, Until Discontinued, Line Care, After every IV line use, Post-op Order Group 1: dextrose bolus (hypoglycemia) 10% [...] glucose is less than 70 mg/dL, repeat vlad tment and recheck blood glucose in 15 minutes x 2 and notify provider. When Dextrose 10% is given for hypoglycemia start D5W at 100 mL/hour until Provider can be reached.
Or dextrose bolus (hypoglycemia) 10% 250 mLJump to med 250 mL, IntraVENous, at 937.5 mL/hr, Administer over 16 Minutes, PRN, Other, Hypoglycemia, Startingon Sat09/05/21 at 1352
If patient NPO, unconscious or unable to swallow AND If Blood Glucose between 40 and 69 mg/dL: Give 125 mL (12.5 g) D10% IV over 8 minutes. If Blood Glucose is less than 40 mg/dL: Give 250 mL (25 g) D10% IV over 16 minutes. Repeat Blood Glucose in 15 minutes. If blood glucose is less than 70 mg/dL, repeat jayashree atment and recheck blood glucose in 15 minutes [...] and IV within 1 hour of each otherunless specifically ordered.
Post-op Or morphine injection 4 [...] if oral route cannot be used.
Post-op Medication Order// HYDROcodone-acetaminophen (NORCO) 5-325 MG per tablet 2 tablet (COMPLETED) 2 tablet, Oral, ONCE, 1 dose, On Sat12/06/21 at 1400, Maximum dose of acetaminophen is 4000 mg fromall sources in 24 hours. * 1355 (Given - Provider: Clyde Richard RN) ketorolac (TORADOL) injection 15 [...] not administer for more than 5 days. * 1538 (Given - Provider: Clyde Richard RN) Care Teams (unrecognized sec tion and content) Team MemberRelationshipSpecialtyStart DateEnd Date Mike Yuan MD PCP - GeneralFamily Medicine12/25/18Team MemberRelationshipSpecialtyStart DateEnd Date Mike Yuan MD PCP - GeneralFamily Medicine12/25/18Team MemberRelationshipSpecialtyStart DateEnd Date Mike Yuan MD PCP - GeneralFamily Medicine12/25/18Team MemberRelationshipSpecialtyStart DateEnd Date Mike Yuan MD PCP - GeneralFamily Medicine12/25/18 Team Status: Active Member Role Status Dates Berta Hernandez APRN [employer]ER-C Primary Care Provider Activ e Team Status: Inactive Member Role Status Dates Berta Hernandez APRN [employer]ER-C Primary Care Provider, Vinny bryson Provider Active Mike Yuan MDOther ProviderActive Goals (unrecognized section and content) Goals may [...] BE BASED ON THE PRIMARY CLINICAL RECORDS. [facility]. provides no warranty or guarantee of the accuracy or completeness of information in this document.
--- OUTSIDE RECORDS SUMMARY | 2025-03-31 18:43 | XMS_ITS | Clinical Summary ---
Author Organization [facility] Address [address] [place] [address] Care Team Providers Care Doula Name Role Phone Unavailable Primary Care Provider Unavailabl e Social History Tobacco UseTypesPacks/DayYears UsedDateSmoking Tobacco: Never AssessedSex and Gender InformationValueDate RecordedSex Assigned at BirthNot on fileLegal Sex Male08/08/2022 8:12 PM EDTGender IdentityNot on fileSexual OrientationNot on file Plan of Treatment Not on file
--- OUTSIDE RECORDS SUMMARY | 2025-03-31 18:44 | XMS_ITS | Clinical Summary ---
Author Organization [facility] Address [address] [place] [address] Care Team Providers Care Corporate Ethics Officer Name Role Phone Niru Flynn MD Primary Care Provider [phone] Allergies No known active allergies Medications MedicationSigDispense QuantityRefillsLast FilledStart DateEnd DateStatus amitriptyline (Elavil) 50 mg tablet Take 1 tablet by mouth at bedtime.05/07/2019Active aspirin 81 mg EC tablet Take 1 tablet every day by oral route.Active diclofenac (Voltaren) 50 mg EC tablet Take 1 tablet by mouth in the morning, afternoon, and at bedtime.Active DULoxetine (Cymbalta) [address] capsule Take 1 capsule by mouth in the morning.05/27/2019Active fentaNYL (Duragesic) 25 mcg/hr place 1 patch every 72 hoursActive adalimumab (Humira) 40 mg/0.8 mL syringe kit prefilled syringe Inject 0.8 mL every 2 weeks by subcutaneous route.Active HYDROcodone-acetaminophen ([place]) 5-325 mg tablet take 1 tablet by mouth twice a day if needed for INFLAMMATION OF SACROILIAC JOINTActive furosemide (Lasix) 40 mg tablet Take 40 mg by mouth in the morning.Active folic acid (Folvite) 1 mg tablet Take 1 mg by mouth.Active flecainide (Tambocor) 100 mg tablet Take 100 mg by mouth in the morning and at bedtime.Active omeprazole (PriLOSEC) [address] capsule Take 20 mg by mouth.Active metoprolol succinate XL (Toprol-XL) 50 mg 24 hr tablet Take 50 mg by mouth in the morning.Active lisinopril 10 mg tablet Take 10 mg by mouth in the morning.Active sertraline (Zoloft) 100 mg tablet Take 100 mg by mouth.Active sulfaSALAzine (Azulfidine) 500 mg tablet Take 1,000 mg by mouth.Active ferrous sulfate 325 (65 Fe) MG tablet Take 325 mg by mouth.Active alendronate (Fosamax) 70 mg tablet 70 mg.04/11/2023ctive atorvastatin (Lipitor) 20 mg tablet Take 1 tablet by mouth at bedtime.04/09/2023ctive gabapentin (Neurontin) 300 mg capsule Take 1 capsule by mouth in the morning, afternoon, and at bedtime.04/22/2023 Active insulin aspart (NovoLOG) 100 unit/mL (3 mL) injection pen Inject by subcutaneous route.Active Active Problems ProblemNoted DateDiagnosed EibzSvjnvl07hronic fatigue dziglmhq51hronic obstructive lung tcxwefb42 Pexshxpbvs43FibromyositisHerpes zoster InsomniaMajor depressive disorder, recurrent oxzmgao40MelenaSensorineural hearing loss (SNHL) of both earsentral sleep apnea due to medical dlbxvsvio63ain in left foot Elxtibhphjad21Other and unspecified cygyftcmwoweno72/22/2024 07/18/2023ain in right bkifxaye25ain in unspecified limb aresthesia of right upper limblantar fascial zoyrmtkrajjq42olyp of colonost- traumatic stress disorder, wqldtvw10Encounter for immunization enal rqujijy29heumatoid arthritis Subjective qnhzwbbz45Tic disorder Vitamin D gltgpnmrrw37S/P reverse total shoulder arthroplasty, left09/06/2021Left rotator cuff tear arthropathy 09/05/2021iabetes gzfjelxm46/22/2022seudoarthrosis of lumbar spine11/25/2020 Rzcfjwmtlflrb42/02/0841Kndmjjuhiox78/02/2021rthrodesis vumkoa7303/18/2020Lumbar degenerative disc clkepsv9706/04/2019Acquired absence of lybtey8501/31/2019Altered mental cjusrq3110/28/2013trial /04/2014Chest pain10/28/2013 Congestive heart xmsbady2010/28/2013Coronary iukstulcslztiuh27/04/2014 Overview (06/18/2022): Images from the original note were not included. 08/15/21 Echo Bykvapc0610/28/2013Essential uvjukflqvpdy75/04/2014Gastroesophageal reflux disease 10/28/2013Respiratory bronchiolitis associated interstitial lung disease 10/28/2013Type 2 diabetes mellitus without kxbuwmxhndwv45/04/2014 Social History Tobacco UseTypesPacks/DayYears UsedDateSmoking Tobacco: Never AssessedUT Safety & EnvironmentAnswerDate RecordedFear of Current or Ex-PartnerNot on file 07/18/2023Emotionally AbusedNot on file07/18/2023hysically AbusedNot on file 07/18/2023Sexually AbusedNot on file07/18/2023hysically or Sexually AbusedNot on file07/18/2023Sex and Gender InformationValueDate RecordedSex Assigned at BirthNot on fileLegal LyqVtxw6511/22/2021 11:14 PM EDTGender IdentityNot on file Sexual OrientationNot on file Last Filed Vital Signs Vital SignReadingTime TakenCommentsBlood Ysgnufvi02/66007/18/2023 12:12 PM EST Anxwv162907/18/2023 12:12 PM ESTTemperature--Respiratory Rate--Oxygen Saturation 97%07/18/2023 12:10 PM ESTInhaled Oxygen Concentration--Uzrapj20.9 kg (174 lb) 06/27/2022 2:35 PM QBRXkxawv828.6 cm (5' 4 )08/15/2021 10:15 AM EDTBody Mass Index29.8708/15/2021 10:15 AM EDT Plan of Treatment Health MaintenanceDue DateLast DoneCommentsCT Kjfqwsfmsbta1955Colonoscopy 1955olorectal Cancer Zrfkpufgr1955Diabetes: Hemoglobin A1C 1955FIT-DNA1955FIT1955FOBT1955Medicare Annual Wellness (AWV)1955 4439Fcbiiuevxondn1955Diabetes: Retinopathy Qhoshqouh42/25/1965 Depression Pyllwdpin76/25/1967Diabetes: Urine Protein Xfjxfdbuo85/25/1974Fall Risk Sihjlmnbx45/25/2020COVID-19 Vaccine ( season)2025 11/14/2020, 10/27/2020Influenza Vaccine (#1)509/10/2022, 05/27/2022, 03/17/2022, Additional history existsAdult Osbfvvd32/11/2022, 08/24/2015Pneumococcal Vaccine: 50+ YjvbnVwztprywe56/04/2022, 04/14/2021, 03/09/2019, Additional history existsZoster QldsystcXcllshvsj72/16/2022, 10/12/2021, 08/26/2018, Additional history existsHIB VaccinesAged OutNo longer eligible based on patient's age to complete this topicHPV VaccinesAged OutNo longer eligible based on patient's age to complete this topicIPV VaccinesAged OutNo longer eligible based on patient's age to complete this topicMeningococcal B VaccineAged OutNo longer eligible based on patient's age to complete this topicMeningococcal VaccineAged OutNo longer eligible based on patient's age to complete this topicRotavirus VaccinesAged OutNo longer eligible based on patient's age to complete this topic Insurance Care Teams Team MemberRelationshipSpecialtyStart DateEnd Niru Galicia MD [address] [facility] PCP - General06/14/22
--- OUTSIDE RECORDS SUMMARY | 2025-03-31 18:44 | XMS_ITS | Clinical Summary ---
Author Organization [facility] Address [address] [place] [address] Care Team Providers Care Cigarette Vendor Name Role Phone Phys, Do Not Send Reports Primary Care Provider Unavailable Medications MedicationSigDispense QuantityRefillsLast FilledStart DateEnd DateStatus gabapentin (NEURONTIN) 800 mg tablet Active HYDROcodone-acetaminophen (NORCO) 10-325 mg tablet take 1 tablet by mouth every 6 hours if needed for cnij294Active ZOSTAVAX (PF) injection inject contents of 1 vial jshrxxoxaiqkkh575/03/2016Active adalimumab (HUMIRA) 20 mg/0.4 mL injection syringe Inject 40 mg into the skin every seven days.Active ascorbic acid (VITAMIN C) 500 mg tablet Take 500 mg by mouth once daily.Active flecainide (TAMBOCOR) 100 mg tablet Take 100 mg by mouth two times daily.Active folic acid (FOLATE) 1 mg tablet Take 1 mg by mouth once daily.Active furosemide (LASIX) 40 mg tablet Take 40 mg by mouth once daily.Active lisinopril (ZESTRIL) 10 mg tablet Take 10 mg by mouth once daily.Active melatonin 5 mg tablet Take 5 mg by mouth at bedtime.Active metoprolol succinate (TOPROL XL) 50 mg 24 hr tablet Take 50 mg by mouth once daily.Active multivitamin tablet Take 1 tablet by mouth once daily.Active omeprazole (PriLOSEC) 20 mg delayed release capsule Take 20 mg by mouth once daily, 30 min prior to meal.Active prednisoLONE (MILLIPRED) 5 mg tablet Take 5 mg by mouth once daily.Active sulfaSALAzine (AZULFIDINE) 500 mg tablet Take 1,000 mg by mouth two times daily.Active thiamine (VITAMIN B-1) 100 mg tablet Take 100 mg by mouth once daily.Active traMADol (ULTRAM) 50 mg tablet Take 50 mg by mouth every six hours as needed.Active Active Problems No known active problems Social History Tobacco UseTypesPacks/DayYears UsedDateSmoking Tobacco: NeverSmokeless Tobacco: NeverAlcohol UseStandard Drinks/WeekCommentsNo0 (1 standard drink = 0.6 oz pure alcohol)Sex and Gender InformationValueDate RecordedSex Assigned at BirthNot on fileLegal BnyBunf25/31/2016 3:03 PM EDTGender IdentityNot on fileSexual OrientationNot on file Last Filed Vital Signs Vital SignReadingTime TakenCommentsBlood Nmzvgyfv582/65005/31/2016 11:51 AM EST Jxtzp073905/31/2016 11:51 AM ZFRXajaxgudvcn07.6 ??C (97.9 ??F)05/31/2016 11:51 AM ESTRespiratory Hwuy266905/31/2016 11:51 AM ESTOxygen Htnkxqoedh84%05/31/2016 11:51 AM ESTInhaled Oxygen Concentration--Fdrtfz00.3 kg (179 lb 3.2 oz)05/31/2016 11:51 AM LHFNbbzpr872.1 cm (5' 5 )05/31/2016 11:51 AM ESTBody Mass Index29.82 05/31/2016 11:51 AM EST Plan of Treatment Health MaintenanceDue DateLast DoneCommentsCologuard (average risk only) 3375Gdotyegjfro1955Colorectal Cancer Lkusqwfvz1955FIT (average risk only)1955Hepatitis C Xeowchsvm1955DTaP,Tdap,and Td Vaccines (1 - Tdap)1974Pneumococcal Vaccines 50years + (1 of 1 - PCV)2005Zoster Recombinant Vaccines (1 of 2)2005COVID-19 Vaccine (1 - 2024- season) 2025Influenza Vaccine (#1)2025Respiratory Syncytial Virus (RSV) or ages 60 years and older (1 - 1-dose 75+ series)2030 Respiratory Syncytial Virus (RSV) ages 0 thru 19 monthsAged OutNo longer eligible based on patient's age to complete this topic Insurance Care Teams Team MemberRelationshipSpecialtyStart DateEnd Date Phys, Do Not Send Reports PCP - Nlkixdr25/9/16
--- OUTSIDE RECORDS SUMMARY | 2025-03-31 18:44 | XMS_ITS | Clinical Summary ---
Author Organization [facility] Address [address], [address] [place] [address] Care Team Providers Care Weapons Officer Name Role Phone Niru Flynn MD Primary Care Provider [phone] Allergies No known active allergies Medications MedicationSigDispense QuantityRefillsLast FilledStart DateEnd DateStatus lisinopril (PRINIVIL;ZESTRIL) 10 MG tablet Take 10 mg by mouth dailyActive thiamine 100 MG tablet Take 100 mg by mouth dailyActive omeprazole (PRILOSEC) 20 MG delayed release capsule Take 20 mg by mouth dailyActive furosemide (LASIX) 40 MG tablet Take 40 mg by mouth dailyActive insulin glargine (LANTUS) 100 UNIT/ML injection vial Inject 10 Units into the skin nightlyActive metoprolol succinate (TOPROL XL) 50 MG extended release tablet Take 50 mg by mouth dailyActive flecainide (TAMBOCOR) 100 MG tablet Take 100 mg by mouth 2 times dailyActive ferrous sulfate 325 (65 Fe) MG tablet Take 325 mg by mouth daily (with breakfast)Active vitamin C (ASCORBIC ACID) 500 MG tablet Take 500 mg by mouth dailyActive amitriptyline (ELAVIL) 50 MG tablet Take 50 mg by mouth jqgzu350Active DULoxetine (CYMBALTA) 60 MG extended release capsule Take 60 mg by mouth daily05/27/2019Active folic acid (FOLVITE) 1 MG tablet Take 1 mg by mouth dailyActive sertraline (ZOLOFT) 100 MG tablet Take 100 mg by mouth 2 times daily For 30 daysActive sulfaSALAzine (AZULFIDINE) 500 MG tablet Take 1,000 mg by mouth 2 times dailyActive gabapentin (NEURONTIN) 600 MG tablet Take 0.5 tablets by mouth daily for 14 days. 40 tablet 06/06/2019Active docusate (COLACE, DULCOLAX) 100 MG CAPS Take 100 mg by mouth 2 times daily 40 capsule 06/08/2019Active melatonin 5 MG TABS tablet Take 5 mg by mouth nightlyActive HYDROcodone-acetaminophen (NORCO) 5-325 MG per tablet Take 1 tablet by mouth every 6 hours as needed for Pain.Active aspirin 325 MG EC tablet Take 1 tablet by mouth daily 30 tablet ctive Active Problems ProblemNoted DateDiagnosed DateS/P reverse total shoulder arthroplasty, left 09/06/2021Left rotator cuff tear ohovhsjofkv34/12/3140Cphbdliynxfaf65/02/2021 Pseudoarthrosis of lumbar spine11/25/20203066Dyfqkuyqxqd19/02/2021rthrodesis status 03/18/2020Lumbar degenerative disc mqmsyhh6206/04/2019Acquired absence of kidney 01/31/2019Atrial uthofvkswvej56/04/2014Essential tzmuuucevbdn23/04/2014Type 2 diabetes mellitus without yqquyawrminr89/04/2014 Overview (02/24/2025): Replacing diagnoses that were inactivated after the 02/24 regulatory import Immunizations ImmunizationAdministration DatesNext DueCOVID-19, Inactive, PFIZER PURPLE top, DILUTE for use, (age 12 y+)11/14/2020,10/27/2020 Family History Medical HistoryRelationNameCommentsDiabetesMotherRelationNameStatusComments Mother Social History Tobacco UseTypesPacks/DayYears UsedDateSmoking Tobacco: FormerCigarettesQuit: 1984Smokeless Tobacco: NeverAlcohol UseStandard Drinks/WeekCommentsNot Currently 0 (1 standard drink = 0.6 oz pure alcohol)Overall Financial Resource Strain (CARDIA)AnswerDate RecordedHow hard is it for you to pay for the very basics like food, housing, medical care, and heating?Not hard at all11/25/2020HQ-2 AnswerDate RecordedPHQ-9 Total Vzzzm199Hunger Vital SignAnswerDate RecordedWithin the past 12 months, you worried that your food would run out before you got the money to buymore.Never true11/25/2020Within the past 12 months, the food you bought just didn't last and you didn't have money to get more.Never true11/25/2020ex and Gender InformationValueDate RecordedSex Assigned at BirthNot on fileLegal HqzAxwl5908/11/2013 2:26 PM EDTGender Identity Not on fileSexual OrientationNot on file Last Filed Vital Signs Vital SignReadingTime TakenCommentsBlood Fnvxvqpr98/7107 1:00 PM EDT Vkolo536612/06/2021 12:51 PM SRCLwrpsvauebf61.7 ??C (98 ??F)09/06/2021 6:42 AM EDT Respiratory Qmlq189312/06/2021 12:51 PM EDTOxygen Gtflzkilsn51%12/06/2021 1:34 PM EDTInhaled Oxygen Concentration--Tmiiyt96.6 kg (180 lb)12/06/2021 12:51 PM EDT Ujevsv891.1 cm (5' 5 )12/06/2021 12:51 PM EDTBody Mass Index29.9507 12:51 PM EDT Plan of Treatment Health MaintenanceDue DateLast DoneCommentsDiabetic foot exam1965 Depression Nfyvyl4702/18/1967Diabetic Alb to Cr ratio (uACR) test1973 Diabetic retinal exam1973Hepatitis C glknkn3302/18/1973DTaP/Tdap/Td vaccine (1 - Tdap)02/18/19743654Kplvtv43/25/4496Obtnmvckzsy35/25/2000Colorectal Cancer Rrvcjz7302/19/2000FIT/FOBT: Average risk02/19/2000Fecal-DNA (Cologuard): Average risk02/19/2000Sigmoidoscopy/CT sbdhtxlexglz10/25/2000Shingles vaccine (2 of 3) 04/23/201610/07/2015AAA qcgsam2402/19/2020A1C test (Diabetic or Prediabetic) GFR test (Diabetes, CKD 3-4, OR last GFR 15-59)09/06/2022 09/06/2021, 08/02/2021, 12/07/2020, Additional history existsPneumococcal 50+ years Vaccine (3 of 3 - PCV20 or PCV21)41, 03/20/2017Flu vaccine (#1)509/, 02/10/2020, 03/09/2019, Additional history existsCOVID-19 Vaccine (3 - 2024- season)/, 10/27/2020 Respiratory Syncytial Virus (RSV) or age 60 yrs+ (1 - 1-dose 75+ series)2030Pneumococcal 0-49 years GrtfudiOrqctydqprpl28/14/2019, 03/20/2017Diabetes viuhvhDlyexvkejjgt39/09/2022Hepatitis A vaccineAged OutNo longer eligible based on patient's age to complete this topicHepatitis B vaccine Aged OutNo longer eligible based on patient's age to complete this topicHib vaccineAged OutNo longer eligible based on patient's age to complete this topic Meningococcal (ACWY) vaccineAged OutNo longer eligible based on patient's age to complete this topicMeningococcal B vaccineAged OutNo longer eligible based on patient's age to complete this topicPolio vaccineAged OutNo longer eligible based on patient's age to complete this topic Medical Devices ImplantedTypeAreaManufacturerDevice IdentifierShelf Expiration DateModel / Serial / LotGraft Canc Chip 1.5dd30fm 15cc - [id number] Implanted:Qty: 1 on 06/04/2019 by Hernandez Messer MD at [facility] Bone/Graft/Tissue/Human/SynthN/A: Spine LumbarMUSCULOSKELETAL TRANSPLANT FND-PMM 09/13/[id number] / [id number] / Apollo-Cellular Bone Matrix 5cc - [id number] Implanted:Qty: 1 on 06/04/2019 by Hernandez Messer MD at [facility] SpineN/A: Spine LumbarNUVASIVE INC-PMM10/05/[id number] / [id number] / Screw Polyaxial Reline-O 2s 6.5x55mm Implanted:Qty: 6 on 06/04/2019 by Hernandez Messer MD at [facility] SpineN/A: Spine LumbarNUVASIVE INC-[id number] / / Screw Lk Reline Opn Tulip 5.5mm Implanted:Qty: 6 on 06/04/2019 by Hernandez Messer MD at [facility] SpineN/A: Spine LumbarNUVASIVE INC-[id number] / / Impl Cage Spine Mas 28 Mm Posterior Implanted:Qty: 2 on 06/04/2019 by Hernandez Messer MD at [facility] SpineN/A: Spine LumbarNUVASIVE INC-[id number] / / Impl Spine Jose Armando Reline-O 5.5x75mm Implanted:Qty: 2 on 06/04/2019 by Hernandez Messer MD at [facility] SpineN/A: Spine LumbarNUVASIVE INC-[id number] / / Sys Fix Reline 0x Conn 40 50mm 5.5lp Adj Implanted:Qty: 1 on 06/04/2019 by Hernandez Messer MD at [facility] SpineN/A: Spine LumbarNUVASIVE INC-[id number] / / Screw O Reline [id number] Implanted:Qty: 2 on 12/06/2020 by Hernandez Messer MD at [facility] SpineN/A: Spine LumbarNUVASIVE INC-[id number] / / Kit Bne Grft M Rhbmp-2 4.2mg Inj 5ml Contain Ndl 20ga Implanted:Qty: 1 on 12/06/2020 by Hernandez Messer MD at [facility] N/A: Spine LumbarMEDTRONIC SOFAMOR DANEK-WD11/23/[id number] / / [id number] Spnl Lordtc 01a60s92 Mm Crv Coalesce Implanted:Qty: 1 on 12/06/2020 by Hernandez Messer MD at [facility] N/A: Spine LumbarNUVASIVE INC-[id number] / / [id number] Bne Sub 30cc 1.7-10mm Canc Chip Morselized Frz Dry - [id number] Implanted:Qty: 1 on 12/06/2020 by Hernandez Messer MD at [facility] N/A: Spine LumbarMUSCULOSKELETAL TRANSPLANT FOUNDATION-[id number] / [id number] / Screw Spnl L55mm Dia6.5mm Post Thoracolumbosacral Polyax 2s Implanted:Qty: 2 on 12/06/2020 by Hernandez Messer MD at [facility] N/A: Spine LumbarNUVASIVE INC-[id number] / / Screw Spnl Dia5.5mm Opn Tulip Sg Reline Implanted:Qty: 8 on 12/06/2020 by Hernandez Messer MD at [facility] N/A: Spine LumbarNUVASIVE INC-[id number] / / Jose Armando Spnl Lordtc 5.5x90 Mm Ti Reline-O Implanted:Qty: 2 on 12/06/2020 by Hernandez Messer MD at [facility] N/A: Spine LumbarNUVASIVE INC-[id number] / / Connector Spnl Crss Lo Prof Adj Reline-O 5.5 X 45-65 Mm Implanted:Qty: 1 on 12/06/2020 by Hernandez Messer MD at [facility] N/A: Spine LumbarNUVASIVE INC-[id number] / / Graft Bne Sub 30cc 1.7-10mm Canc Chip Morselized Frz Dry - [id number] Implanted:Qty: 1 on 12/06/2020 by Hernandez Messer MD at [facility] N/A: Spine LumbarMUSCULOSKELETAL TRANSPLANT FOUNDATION-[id number] / [id number] / Baseplate Duc Oek97gp +3mm Lat Offset Augmented Aequalis - [id number] Implanted:Qty: 1 on 09/05/2021 by Naun Molina MD at [facility] Left: [employer] INC-WD04/14/2026DWJ502 / [id number] / Screw Bone L35mm Dia6.5mm Ti St Full Thrd Ctrl For Duc - [id number] Implanted:Qty: 1 on 09/05/2021 by Naun Molina MD at [facility] Left: ShoulderMetabolix INC-QZTGE095 / / Screw Bone L30mm Dia5mm Ti St Full Thrd Periph For Duc - [id number] Implanted:Qty: 1 on 09/05/2021 by Naun Molina MD at [facility] Left: ShoulderMetabolix INC-[id number] / / Screw Bne Periph 5x38 Mm Shldr Reversed Ns Aequalis Perform - [id number] Implanted:Qty: 1 on 09/05/2021 by Naun Molina MD at [facility] Left: ShoulderMetabolix INC-PJCTM720 / / Sphere Duc Pjp91ah +3mm Lat Offset Reversed Aequalis - [id number] Implanted:Qty: 1 on 09/05/2021 by Naun Molina MD at [facility] Left: ShoulderMetabolix INC-WD06/08/2026DWJ023 / [id number] / Insert Shldr C Npp26mw Thk+6mm 7.5deg Reversed Aequalis - [id number] Implanted:Qty: 1 on 09/05/2021 by Naun Molina MD at [facility] Left: ShoulderMetabolix INC-WD08/23/20252539HBJ308A / [id number] / Tray Hum Thk+0mm 0mm Offset Cntr Reversed Aequalis Ascend - [id number] Implanted:Qty: 1 on 09/05/2021 by Naun Molina MD at [facility] Left: ShoulderMetabolix INC-WD05/29/2026DWF500 / [id number] / Stem Hum L74mm Dia3b 132.5deg Std Shldr Ptc Aequalis Ascend - [id number] Implanted:Qty[facility] Metabolix INC-XGEHZ982P / [id number] / ExplantedTypeAreaManufacturerDevice IdentifierShelf Expiration DateModel / Serial / Shanae Orth 2.5x220 Mm Shldr Aequalis Perform+ - [id number] Explanted:Qty: 1 [facility] Metabolix [facility]-WD03/02/2026DWD017 / / [id number] Procedures Procedure NamePriorityDate/TimeAssociated DiagnosisCommentsBASIC METABOLIC PANEL Cbtrkfn4809/06/2021 5:20 AM EDT HEMOGLOBIN M9RHqnrwff63/09/2022 12:47 PM EST from Last 3 Months or Most Recently Relevant to Health Maintenance Results * (ABNORMAL) Basic Metabolic Panel (09/06/2021 5:20 AM EDT)ComponentValueRef RangeTest MethodAnalysis TimePerformed AtPathologist OvxaufvxqUbocrpa271(H)70 - 99 mg/dL09/06/2021 5:[address] [facility] YBYHUD945 - 23 mg/dL09/06/2021 5:[address] [facility] LABCreatinine1.160.70 - 1.20 mg/dL09/06/2021 5:[address] [facility] BUN/Creatinine Emyto054 - 5:[address] [facility] LABCalcium8.0(L)8.6 - 10.4 mg/dL09/06/2021 5:[address] [facility] PKXHhxgfv997148 - 144 mmol/L09/06/2021 5:[address] [facility] LABPotassium4.03.7 - 5.3 mmol/L09/06/2021 5:[address] [facility] PHAWanaqfyp27609 - 107 mmol/L09/06/2021 5:[address] [facility] CSMWV63974 - 31 mmol/L09/06/2021 5:[address] [facility] LABAnion Htd101 - 17 mmol/L09/06/2021 5:[address] [facility] LABGFR Non->60>60 mL/min09/06/2021 5:[address] [facility] LABGFR >60>60 mL/min 09/06/2021 5:[address] [facility] LABGFR Coexewz9609/06/2021 5:[address] [facility] LABComment: Average GFR for 60-69 years old: 85 mL/min/1.73sq m Chronic Kidney Disease: <60 mL/min/1.73sq m Kidney failure: <15 mL/min/1.73sq m ? eGFR calculated using average adult body mass. Additional eGFR calculator available at: ? http://www.CheckBonus/Kaptur_crcl_2012.htm ? GFR Vcykkdi0309/06/2021 5:[address] [facility] LABComment: Stage 1: Some kidney damage normal GFR Stage 2: Mild kidney damage GFR 60-89 Stage 3: Moderate kidney damage GFR 30-59 Stage 4: Severe kidney damage GFR 15-29 Stage 5: Severe kidney damage GFR <15 ESRD - chronic treatment by dialysis or transplant ? Specimen (Source)Anatomical Location / LateralityCollection Method / Volume Collection TimeReceived TimeBLOOD SPECIMEN / Ypwefab1409/06/2021 5:20 AM EDT 09/06/2021 5:58 AM EDT Narrative Authorizing ProviderResult TypeResult StatusDarin Tracy MDCHEMISTRY ORDERABLES Final ResultPerforming OrganizationAddressCity/State/ZIP CodePhone Number [facility] [address] [phone] * (ABNORMAL) Hemoglobin A1C (08/02/2021 12:47 PM EST)ComponentValueRef RangeTest MethodAnalysis TimePerformed AtPathologist SignatureHemoglobin A1C6.7(H)4.0 - 6.0 %08/02/2021 12:47 PM ESTMERCY LABORATORIESEstimated Avg Rpsptrv759ab/dL 08/02/2021 12:47 PM ESTMERCY LABORATORIESComment: The ADA and AACC recommend providing the estimated average glucose result to permit better patient understanding of their HBA1c result. Specimen (Source)Anatomical Location / LateralityCollection Method / Volume Collection TimeReceived TimeBLOOD SPECIMEN / Inkkftg5908/02/2021 12:47 PM EST 08/02/2021 12:48 PM EST Narrative Authorizing ProviderResult TypeResult StatusDarin Tracy MDCHEMISTRY ORDERABLES Final ResultPerforming OrganizationAddressCity/State/ZIP CodePhone Number [facility] [address] [place] [address], [facility] [phone] [facility] [address] [place] [address], [facility] [phone] from Last 3 Months or Most Recently Relevant to Health Maintenance Insurance Advance Directives * Full Code (Latest Code Status on File) Date ActivatedDate InactivatedComments09/05/2021 1:40 PM09/06/2021 4:31 PM * Full Code Date ActivatedDate InactivatedComments12/06/2020 3:10 PM12/08/2020 6:34 PM * Full Code Date ActivatedDate InactivatedComments06/04/2019 3:37 PM06/08/2019 4:48 PM NameRelationshipHealthcare Agent RelationshipCommunicationLoma Linda University [facility] Primary Decision Maker* Care Teams Team MemberRelationshipSpecialtyStart DateEnd Date Niru Flynn MD PCP - GeneralFamily Medicine12/25/18
--- OUTSIDE RECORDS SUMMARY | 2025-03-31 18:44 | XMS_ITS | Patient Health Record ---
Author Organization [facility] Address [address] [place] [address] Support Name Relationship Address Phone Billy Garcia Guarantor Unknown [phone] Reason For Referral No Information Plan Of Treatment No Information Insurance Providers Payer Name Payer Address Payer Phone Subscriber Number Group Number Insured Name Patient Relationship to Insured Coverage Start Date Coverage End Date [employer] [place] [employer] [address] [place] [address] [id number], RalphSelf - patient is the insured
--- OUTSIDE RECORDS SUMMARY | 2025-03-31 18:44 | XMS_ITS | Clinical Summary ---
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 Role Phone Niru Flynn MD Primary Care Provider [phone] Allergies No known active allergies Medications MedicationSigDispense QuantityRefillsLast FilledStart DateEnd DateStatus amitriptyline (ELAVIL) 50 mg tablet Take 1 tablet (50 mg total) by mouth nightly.05/07/2019Active ascorbic acid (VITAMIN C) 500 mg tablet Take 1 tablet (500 mg total) by mouth in the morning.Active DULoxetine (CYMBALTA) 60 mg capsule Take 1 capsule (60 mg total) by mouth daily.05/27/2019Active ferrous sulfate 325 (65 FE) mg tablet Take 1 tablet (325 mg total) by mouth in the morning.Active folic acid (FOLVITE) 1 mg tablet Take 1 tablet (1 mg total) by mouth in the morning.Active gabapentin (NEURONTIN) 600 mg tablet Take 0.5 tablets (300 mg total) by mouth in the morning.06/06/2019Active insulin glargine (LANTUS) 100 unit/mL injection Inject 0.1 mL (10 Units total) under the skin nightly.Active metoprolol succinate XL (TOPROL XL) 50 mg 24 hr tablet Take 1 tablet (50 mg total) by mouth in the morning.Active multivitamin (THERAGRAN) tablet Take 1 tablet by mouth in the morning.Active sertraline (ZOLOFT) 100 mg tablet Take 1 tablet (100 mg total) by mouth in the morning.05/05/2019Active HYDROcodone-acetaminophen (NORCO) 5-325 mg per tablet Take 1 tablet by mouth every 8 (eight) hours as needed for pain.Active meloxicam (MOBIC) 15 mg tablet Take 1 tablet (15 mg total) by mouth in the morning.Active alendronate (FOSAMAX) 70 mg tablet Take 1 tablet (70 mg total) by mouth every 7 days. In a.m. with water on empty stomach, nothing else by mouth and remain upright for 30minActive mirtazapine (REMERON) 15 mg tablet Take 1 tablet (15 mg total) by mouth nightly.Active omeprazole (PriLOSEC) 20 mg capsule Take 1 capsule (20 mg total) by mouth in the morning.Active traMADoL (ULTRAM) 50 mg tablet Take 1 tablet (50 mg total) by mouth every 6 (six) hours as needed.Active prazosin (MINIPRESS) 1 mg capsule Take 1 capsule (1 mg total) by mouth nightly.Active adalimumab (HUMIRA) 20 mg/0.4 mL injection kit Inject 0.8 mL (40 mg total) under the skin once a week. DO NOT RESUME UNTIL OCTOBER 1409/27/2022ctive aspirin 325 mg EC tablet Take 1 tablet (325 mg total) by mouth in the morning.09/28/2022ctive furosemide (LASIX) 40 mg tablet Take 1 tablet (40 mg total) by mouth daily. Hold furosemide until you see your PCP one week after hrfhyau0909/28/2022ctive lisinopriL (PRINIVIL,ZESTRIL) 10 mg tablet Take 1 tablet (10 mg total) by mouth in the morning. Hold your lisinopril until you see your PCP 1 week after surgery..09/28/2022ctive Active Problems ProblemNoted DateDiagnosed DatePre-op ikjgfsd8309/27/2022 Encounters DateTypeDepartmentCare FdliFzfmxbkaghe72/28/0568Qeceyi42/12/2025Travelfrom Last 3 Months Social History Tobacco UseTypesPacks/DayYears UsedDateSmoking Tobacco: FormerCigarettesCigars Smokeless Tobacco: Never Tobacco Cessation:Counseling Given: Not Answered Alcohol UseStandard Drinks/WeekCommentsNot Currently0 (1 standard drink = 0.6 oz pure alcohol)ChildcareAnswerDate HraobqfrYfdwnqrnxDhgfdbp59/25/2020Employment AnswerDate RaysdnwjCnwfwnfszwFrltxux62/25/2020Purpose - LifeAnswerDate Recorded Purpose and direction in wtkkJjnnfrz74/11/2021ex and Gender InformationValue Date RecordedSex Assigned at BirthNot on fileLegal IvvAusn5602/19/2020 10:17 AM EDTGender IdentityNot on fileSexual OrientationNot on file Last Filed Vital Signs Vital SignReadingTime TakenCommentsBlood Ahvvcnyd00/6005 7:32 AM EDT Uyran6772 7:32 AM QGNRcwnitgbczp61.6 ??C (97.8 ??F)09/28/2022 7:32 AM EDTRespiratory Xmrv039109/28/2022 7:32 AM EDTOxygen Wcxysurvxm82%09/28/2022 7:32 AM EDTInhaled Oxygen Concentration--Uvbeqm92.4 kg (175 lb)09/27/2022 6:32 AM EDT Gnaapq978.1 cm (5' 5 )09/27/2022 6:32 AM EDTBody Mass Index29.12009/27/2022 6:32 AM EDT Plan of Treatment Health MaintenanceDue DateLast DoneCommentsDepression Txqnygcyf15/25/1967Tobacco Qlaytpmqk88/25/1967Abdominal Aortic Aneurysm (AAA) Sbtnqd6602/19/2020Fall Risk Bodwqiuqy54/25/2020Adult BMI Ckfyixzdc61/OVID-19 Vaccine (2024- season)/, 10/27/2020Influenza Qrmhrvs4601/25/2025 01/30/2023, 03/17/2022, 02/17/2021, Additional history existsRSV ( or age 60+ yrs) (1 - 1-dose 75+ series)2030DTaP,Tdap and Td Vaccines (4 - Td or Tdap)/11/2022, 08/24/2015, 04/25/2009Zoster (Shingles) Vaccine Fszggvfee12/16/2022, 10/12/2021, 08/26/2018, Additional history exists Goals GoalPatient Goal TypeAssociated ProblemsRecent ProgressPatient-Stated?Author home Linette Bowers LSW Note: Evaluation of progress towards goal: pt will DC today Medical Devices ImplantedTypeAreaManufacturerDevice IdentifierShelf Expiration DateModel / Serial / LotStem Hum 78mm Prft Aqls Ascnd Flx Ptc 132.5d 4b Std Shldr - [id number] - [id number] Implanted:Qty: 1 on 09/27/2022 by Naun Molina MD at [facility] ImplantRight: ShoulderTornier Inc04/17/20272319NAT883C / [id number] / NATray Hum Aqls Ascnd Flx +0mm 0mm Cntr Os Shldr Rvrs Strl Lf Ty Cntr Ofst - [id number] - [id number] Implanted:Qty: 1 on 09/27/2022 by Naun Molina MD at [facility] ImplantRight: ShoulderTornier Inc07/24/2027DWF500 / [id number] / NAShoulder Torn Rev Asc Flx Pf Bp Construct - [id number] Implanted:Qty: 1 on 09/27/2022 by Naun Molina MD at [facility] ImplantRight: ShoulderTornier [id number] / / Tornier Perform Reversed Augmented Glenoid Lateralized Baseplate Implanted:Qty: 1 on 09/27/2022 [facility]: ShoulderStrysan [facility] Ojrpjhp0108/17/2027DWJ502 / [id number] / NATornier Perform Reversed Glenoid Lateralized Glenosphere Implanted:Qty: 1 on 09/27/2022 by [facility]: ShoulderDryden Llnpfqqussb46/15/9992CGT021 / [id number] / NATornier Flex Shoulder System Flex Reversed Insert, Thickness +6mm Implanted:Qty: 1 on 09/27/2022 by Naun Molina MD at [facility]: ShoulderStryker Gshmzzkttpi75/08/5281RAF867Y / [id number] / NACentral Screw Implanted:Qty: 1 on 09/27/2022 by [facility]Right: ShoulderStryker Ibgpgkpnjfm10/01/3095NZN292 / NA / NAPeripheral Screw Implanted:Qty: 2 on 09/27/2022 [facility]: ShoulderStryker Zpbevxakxdf35/01/7165NEW319 / NA / NA Insurance Advance Directives * Full Code (Latest Code Status on File) Date ActivatedDate InactivatedComments09/27/2022 11:17 AM09/28/2022 6:57 PM Care Teams Team MemberRelationshipSpecialtyStart DateEnd Date Niru Flynn MD [address] [place] [address] PCP - GeneralFamily Oxmmlksl53/8/20
[2025-03-31] MEDS: ONDANSETRON 4 MG RAPDIS TABLET SL (19:27)
[2025-03-31] MEDS: DIPHTH,PERTUSS(ACELL),TET VAC 0.5 ML SYRINGE IM (19:27)
[2025-03-31] MEDS: MORPHINE SULFATE 4 MG/ML VIAL IM (19:27)
[2025-03-31] MEDS: OXYCODONE HCL/ACETAMINOPHEN 5MG/325MG 1 TAB PO (20:33)
== END 2025-03-31 20:45 | disposition home or self-care (01) ==
PROVIDERS: Emergency Provider Emergency Medicine; PCP Family Medicine
DX: S00.83XA Contusion of other part of head, initial encounter (principal); S01.112A Laceration without foreign body of left eyelid and periocular area, initial encounter; W18.39XA Other fall on same level, initial encounter; Y93.67 Activity, basketball; Z98.1 Arthrodesis status; S80.212A Abrasion, left knee, initial encounter; S80.211A Abrasion, right knee, initial encounter; Z23 Encounter for immunization; S09.90XA Unspecified injury of head, initial encounter; M54.2 Cervicalgia; M54.9 Dorsalgia, unspecified; R07.89 Other chest pain; R10.9 Unspecified abdominal pain; M25.561 Pain in right knee; M25.562 Pain in left knee
CPT/HCPCS: 70450; 71250; 72125; 72128; 72131; 73562; 74176; 76376; 90471; 90715; 93005; 96372; 99285; J2270; Q0162